=== PATIENT | male | born 1990 | race Caucasian/White ===

== ENCOUNTER 2016-10-21 01:15 | Emergency (ER) | payer SELFPAY ==
[~2016-10-21] VITALS: Ht 172.7 cm; Wt 95.7 kg
[~2016-10-21 01:15] MED LIST: ACYC5CRE2 TP; AMOX500C2 PO; CEPH500C PO; CLOB15OI15 TP; D-ME118S7 PO; DOXY100C42 PO; FLUT9.9S NS; HYDR1TAB PO; METH20TA34 PO
[2016-10-21] MEDS ORDERED: NS IV 1000 ML 1,000 ML IV ONE (01:27)
[2016-10-21 01:46] LABS: BASOPHILS % (AUTO) 1 % (0-10); EOSINOPHILS # (AUTO) 0.3 10^3/uL (0.0-0.3); EOSINOPHILS % (AUTO) 5 % (0-10); LYMPHOCYTES # (AUTO) 3.2 X 10^3 (1.0-4.0); LYMPHOCYTES % (AUTO) 47 % (12-44); MEAN CORPUSCULAR HEMOGLOBIN 33 PG (25-34); MEAN CORPUSCULAR HGB CONC 35 G/DL (32-36); MEAN CORPUSCULAR VOLUME 94 FL (80-99); MEAN PLATELET VOLUME 9.9 FL (7.4-10.4); MONOCYTES # (AUTO) 0.7 X 10^3 (0.0-1.0); MONOCYTES % (AUTO) 10 % (0-12); NEUTROPHILS # (AUTO) 2.6 X 10^3 (1.8-7.8); NEUTROPHILS % (AUTO) 38 % (42-75); PLATELET COUNT 207 10^3/uL (130-400); RED BLOOD COUNT 5.11 10^6/uL (4.35-5.85); RED CELL DISTRIBUTION WIDTH 13.9 % (10.0-14.5); WHITE BLOOD COUNT 6.9 10^3/uL (4.3-11.0)
--- NOTE | 2016-10-21 01:58 | ED Neurological Problem ---
General Chief Complaint: Neurological Problems Stated Complaint: POSS SEIZURE Nursing Triage Note: Pt reports he had a "seizure" at 1700 yesterday. Pt's reports hearing pt holler out and walked into room to find him with "body tensed up and shaking all over". Pt also reports biting tongue during incident. Pt reports no previous hx of seizures. Pt states that since incident he has been unable to move much and now c/o pain in bilat shoulder blades and pressure to chest causing him to be unable to take a deep breath. Nursing Sepsis Screen: No Definite Risk Source: patient Exam Limitations: no limitations History of Present Illness Time seen by provider: 01:45 Initial Comments Here with report of seizure that occurred 2 days ago not yesterday. States that it lasted for a couple minutes and he was postictal for about 30 minutes per the . He apparently bit his tongue and was bleeding. She describes that he had all over body tensing and shaking with foaming at the mouth and bleeding in the mouth. He did not seek treatment at the time due to other life stressors. He was concerned about cost. Presents now because he has residual and persistent pain to both shoulders and shoulder blade areas and along the back. States he felt his shoulder feel like it popped back in sometime after the seizure 2 days ago. Denies fever or chills. States after the seizure area and right facial weakness and numbness that lasted about 2 hours. Timing/Duration: other (seizure lasted a few minutes and occurred 2 days ago postictal state for 30 minutes and residual pain to back and shoulders for 2 days.) Severity: moderate Associated Symptoms: No fever/chills, No nausea/vomiting, seizures Allergies and Home Medications Allergies Coded Allergies: No Known Drug Allergies (Unverified , 10/21/16) Home Medications Methylphenidate HCl 20 Mg Tablet 20 MG PO BID (Reported) Constitutional: see HPINo chills, No fever Eyes: No Symptoms Reported Ears, Nose, Mouth, Throat: see HPI mouth pain (lateral edge of the tongue sore on both sides where he bit his tongue 2 days ago.)denies mouth swelling Respiratory: no symptoms reported Cardiovascular: no symptoms reported Gastrointestinal: no symptoms reportedNo nausea, No vomiting Genitourinary: no symptoms reported Musculoskeletal: see HPI joint pain muscle pain Skin: no symptoms reported Psychiatric/Neurological: See HPIDenies Headache, Tonic Clonic Seizures All Other Systems Reviewed Negative Unless Noted: Yes Past Odrhsjy-Tkipvy-Fqzjyt Hx Patient Social History Alcohol Use: Occasionally Uses Recreational Drug Use: No Smoking Status: Current Everyday Smoker Type Used: Cigarettes Recent Foreign Travel: No Contact w/Someone Who Travel: No Recent Infectious Disease Expo: No Recent Hopitalizations: No Seasonal Allergies Seasonal Allergies: No Surgeries HX Surgeries: No Respiratory Hx Respiratory Disorders: No Cardiovascular Hx Cardiac Disorders: No Neurological Hx Neurological Disorders: No Reproductive System Hx Reproductive Disorders: No Genitourinary Hx Genitourinary Disorders: No Gastrointestinal Hx Gastrointestinal Disorders: No Musculoskeletal Hx Musculoskeletal Disorders: No Endocrine Hx Endocrine Disorders: No HEENT HX ENT Disorders: No Cancer Hx Cancer: No Psychosocial Hx Psychiatric Problems: Yes Behavioral Health Disorders: ADD/ADHD Reviewed Nursing Assessment Reviewed/Agree w Nursing PMH: Yes Family Medical History Significant Family History: No Pertinent Family Hx Physical Exam Vital Signs Vital Sign - Last 12Hours 10/21/16 01:26 Temp 99.3 Pulse 141 Resp 20 B/P 140/94 Pulse Ox 92 O2 Delivery Room Air Capillary Refill : Less Than 3 Seconds General Appearance: WD/WN no apparent distress Respiratory: lungs clear normal breath sounds Cardiovascular: no murmur tachycardia Peripheral Pulses: 2+ Dorsalis Pedis (R), 2+ Left Dors-Pedis (L), 2+ Radial Pulses (R), 2+ Radial Pulses (L) Gastrointestinal: non tender soft Extremities: non-tender normal inspection Neurologic/Psychiatric: alert oriented x 3 Crainal Nerves: normal hearing normal speech PERRL Coordination/Gait: normal gait Motor/Sensory: no motor deficit no sensory deficit no pronator drift Skin: normal color warm/dry Progress/Results/Core Measures Results/Orders Lab Results Laboratory Tests Test 10/21/16 01:41 10/21/16 03:02 Range/Units Acetaminophen Level < 10 L 10-30 UG/ML Alanine Aminotransferase (ALT/SGPT) 326 H 0-55 U/L Albumin 4.4 3.2-4.5 G/DL Alkaline Phosphatase 50 40-136 U/L Anion Gap 16 H 5-14 MMOL/L Aspartate Amino Transf (AST/SGOT) 268 H 5-34 U/L BUN/Creatinine Ratio 7 Basophils # (Auto) 0.0 0.0-0.1 10^3/uL Basophils (%) (Auto) 1 0-10 % Blood Urea Nitrogen 6 L 7-18 MG/DL Calcium Level 9.1 8.5-10.1 MG/DL Carbon Dioxide Level 19 L 21-32 MMOL/L Chloride Level 107 98-107 MMOL/L Creatinine 0.85 0.60-1.30 MG/DL Eosinophils # (Auto) 0.3 0.0-0.3 10^3/uL Eosinophils (%) (Auto) 5 0-10 % Estimat Glomerular Filtration Rate > 60 Glucose Level 131 H 70-105 MG/DL Hematocrit 48 40-54 % Hemoglobin 16.7 13.3-17.7 G/DL Lymphocytes # (Auto) 3.2 1.0-4.0 X 10^3 Lymphocytes (%) (Auto) 47 H 12-44 % Magnesium Level 2.3 1.8-2.4 MG/DL Mean Corpuscular Hemoglobin 33 25-34 PG Mean Corpuscular Hemoglobin Concent 35 32-36 G/DL Mean Corpuscular Volume 94 80-99 FL Mean Platelet Volume 9.9 7.4-10.4 FL Monocytes # (Auto) 0.7 0.0-1.0 X 10^3 Monocytes (%) (Auto) 10 0-12 % Neutrophils # (Auto) 2.6 1.8-7.8 X 10^3 Neutrophils (%) (Auto) 38 L 42-75 % Platelet Count 207 130-400 10^3/uL Potassium Level 3.8 3.6-5.0 MMOL/L Red Blood Count 5.11 4.35-5.85 10^6/uL Red Cell Distribution Width 13.9 10.0-14.5 % Salicylates Level < 5.0 L 5.0-20.0 MG/DL Serum Alcohol 204 H <10 MG/DL Sodium Level 142 135-145 MMOL/L Thyroid Stimulating Hormone (TSH) 2.59 0.35-4.94 UIU/ML Total Bilirubin 0.7 0.1-1.0 MG/DL Total Protein 7.6 6.4-8.2 G/DL White Blood Count 6.9 4.3-11.0 10^3/uL Ur Tricyclic Antidepressants Screen NEGATIVE NEGATIVE Urine Amphetamines Screen NEGATIVE NEGATIVE Urine Bacteria NEGATIVE /HPF Urine Barbiturates Screen NEGATIVE NEGATIVE Urine Benzodiazepines Screen NEGATIVE NEGATIVE Urine Bilirubin NEGATIVE NEGATIVE Urine Cannabinoids Screen NEGATIVE NEGATIVE Urine Casts PRESENT /LPF Urine Clarity CLEAR Urine Cocaine Screen NEGATIVE NEGATIVE Urine Color YELLOW Urine Crystals NONE /LPF Urine Culture Indicated NO Urine Glucose (UA) NEGATIVE NEGATIVE Urine Hyaline Casts RARE /LPF Urine Ketones 1+ H NEGATIVE Urine Leukocyte Esterase NEGATIVE NEGATIVE Urine Methadone Screen NEGATIVE NEGATIVE Urine Methamphetamines Screen NEGATIVE NEGATIVE Urine Mucus NEGATIVE /LPF Urine Nitrite NEGATIVE NEGATIVE Urine Opiates Screen NEGATIVE NEGATIVE Urine Oxycodone Screen NEGATIVE NEGATIVE Urine Phencyclidine Screen NEGATIVE NEGATIVE Urine Propoxyphene Screen NEGATIVE NEGATIVE Urine Protein NEGATIVE NEGATIVE Urine RBC NONE /HPF Urine RBC (Auto) NEGATIVE NEGATIVE Urine Specific [place] 1.020 1.016-1.022 Urine Squamous Epithelial Cells RARE /HPF Urine Urobilinogen NORMAL NORMAL MG/DL Urine WBC NONE /HPF Urine pH 5 5-9 My Orders Orders-MATT BROWN MD Cbc With Automated Diff (10/21/16 01:27) Comprehensive Metabolic Panel (10/21/16 01:27) Drug Screen Stat (Urine) (10/21/16 01:27) Magnesium (10/21/16 01:27) Thyroid Stimulating Hormone (10/21/16 01:27) Ua Culture If Indicated (10/21/16 01:27) Saline Lock/Iv-Start (10/21/16 01:27) Ns Iv 1000 Ml (Sodium Chloride 0.9%) (10/21/16 01:27) Ct Head Wo (10/21/16 01:57) Chest Pa/Lat (2 View) (10/21/16 01:59) Acetaminophen (10/21/16 02:37) Alcohol (10/21/16 02:37) Salicylate (10/21/16 02:37) Medications Given in ED Current Medications Medications Dose Ordered Sig/Alejandra Route Start Time Stop Time Status Last Admin Dose Admin Sodium Chloride 1,000 ml @ 0 mls/hr Q0M ONCE IV 10/21/16 01:27 10/21/16 01:30 DC 10/21/16 01:41 999 MLS/HR Vital Signs/I&O Vital Sign - Last 12Hours 10/21/16 01:26 Temp 99.3 Pulse 141 Resp 20 B/P 140/94 Pulse Ox 92 O2 Delivery Room Air Blood Pressure Mean: 109 Progress Note : Progress Note Seen and evaluated. IV, labs, chest x-ray and CT head ordered. Normal saline 1 L bolus. Monitor patient. 0325: Heart rate of [address] and chest x-ray findings. Patient likely did have seizure. He was given seizure precautions and do not drive instructions. He will follow-up with his doctor this week. Patient also counseled to stop drinking alcohol as he has elevated liver enzymes. Discharged home with return precautions. Patient verbalize understanding instructions and agreement with plan. Diagnostic Imaging Diagonstic Imaging: CT Plain Films/CT/US/NM/MRI: head Comments No acute intracranial abnormality. per statrad read. Reviewed: Reviewed Night [facility] Study Diagonstic Imaging: Xray Plain Films/CT/US/NM/MRI: chest Comments No acute abnormality. Departure Impression Impression: Primary Impression: Seizure Additional Impression: Elevated liver enzymes Disposition: HOME, SELF-CARE Condition: Improved Departure-Patient Inst. Decision time for Depature: 03:40 Referrals: [facility] (PCP/Family) Primary Care Physician Patient Instructions: Seizures, Adult (DC) Add. Discharge Instructions: All discharge instructions reviewed with patient and/or family. Voiced understanding. Your liver enzymes are elevated. You should stop drinking alcohol. Drink plenty of fluids. Follow-up with your Dr. in 2-3 days for recheck and further evaluation. Do not drive or operate heavy machinery or put herself in positions that would cause harm to self or others if you were to have a seizure. You may not drive until cleared by her doctor. You may take ibuprofen 800 mg every 8 hours as needed for pain. Return for worse pain, fever , vomiting, weakness, breathing problems, seizures or other concerns as needed. Copy Copies To 1: ANETA COX MD, TIMOTHY D MD Oct 21, 2016 01:58
[2016-10-21 02:05] LABS: ALANINE AMINOTRANSFERASE 326 U/L (0-55); ALBUMIN 4.4 G/DL (3.2-4.5); ANION GAP 16 MMOL/L (5-14); ASPARTATE AMINO TRANSFERASE 268 U/L (5-34); BILIRUBIN,TOTAL 0.7 MG/DL (0.1-1.0); BLOOD UREA NITROGEN 6 MG/DL (7-18); BUN/CREATININE RATIO 7; CALCIUM 9.1 MG/DL (8.5-10.1); CARBON DIOXIDE 19 MMOL/L (21-32); CHLORIDE 107 MMOL/L (98-107); CREATININE SERUM 0.85 MG/DL (0.60-1.30); GFR ESTIMATED > 60; GLUCOSE 131 MG/DL (70-105); MAGNESIUM 2.3 MG/DL (1.8-2.4); POTASSIUM 3.8 MMOL/L (3.6-5.0); SODIUM 142 MMOL/L (135-145); TOTAL PROTEIN 7.6 G/DL (6.4-8.2)
[2016-10-21 02:25] LABS: THYROID STIMULATING HORMONE 2.59 UIU/ML (0.35-4.94)
[2016-10-21 03:05] LABS: ALCOHOL 204 MG/DL (<10); SALICYLATE < 5.0 MG/DL (5.0-20.0)
[2016-10-21 03:06] LABS: ACETAMINOPHEN < 10 UG/ML (10-30)
[2016-10-21 03:09] LABS: BILIRUBIN,URINE NEGATIVE (NEGATIVE); KETONES,URINE 1+ (NEGATIVE); LEUKOCYTE ESTERASE ,URINE NEGATIVE (NEGATIVE); NITRITE,URINE NEGATIVE (NEGATIVE); PH,URINE 5 (5-9); PROTEIN,URINE NEGATIVE (NEGATIVE); UROBILINOGEN,URINE NORMAL (NORMAL)
[2016-10-21 03:17] LABS: HYALINE CASTS, URINE RARE /LPF; SQUAMOUS EPITHELIAL CELL,UR RARE /HPF
[2016-10-21 03:48] VITALS: BP 132/94
--- NOTE | 2016-10-21 06:50 | Diagnostic Imaging Report ---
PROCEDURE: CT head without contrast. TECHNIQUE: Multiple contiguous axial images were obtained through the brain without the use of intravenous contrast. INDICATION: Seizure. Study compared 03/28/2009. There is no hemorrhage, hydrocephalus, edema, mass, mass effect or interval change. Orbits, sinuses and calvarium are within normal limits. IMPRESSION: Stable normal CT head. Dictated by: Dictated on workstation # [id number]
--- NOTE | 2016-10-21 08:03 | Diagnostic Imaging Report ---
INDICATION: Respiratory distress. FINDINGS: The lungs are clear. Heart and vessels normal. There is no effusion or pneumothorax. IMPRESSION: No acute-appearing abnormality. Dictated by: Dictated on workstation # [id number]
== END 2016-10-21 03:48 | disposition home or self-care (01) ==
LOC: EDUNIT# 01:15 → ER 01:19
DX: R56.9 Unspecified convulsions (principal); F10.10 Alcohol abuse, uncomplicated; Y90.7 Blood alcohol level of 200-239 mg/100 ml; R74.8 Abnormal levels of other serum enzymes
CPT/HCPCS: 36415; 70450; 71020; 80053; 80306; 80320; 80329; 81000; 83735; 84443; 85025; 96360

== ENCOUNTER 2020-02-16 12:01 | Emergency (ER) | payer SELFPAY ==
[~2020-02-16 12:01] MED LIST changes: -D-ME118S7 PO; +PROM118S5 PO
--- NOTE | 2020-02-16 12:32 | ED GI ---
General Chief Complaint: Rect Problems Stated Complaint: RECTAL BLEEDING Source of Information: Patient History of Present Illness Date Seen by Provider: Feb 16, 2020 Time Seen by Provider: 12:32 Initial Comments 29-year-old male presents with rectal bleeding. Reports he's had rectal bleeding for at least 2 weeks with some diffuse abdominal pain. Patient reports she's had on and off in the past. That he was seen about 6 months ago and they gave him some "antibiotics" patient denies any fevers or chills. He does have some nausea. No cough shortness of breath. Allergies and Home Medications Allergies Coded Allergies: No Known Drug Allergies (Unverified , 10/21/16) Home Medications Methylphenidate HCl 20 Mg Tablet, 20 MG PO BID, (Reported) Patient Home Medication List Home Medication List Reviewed: Yes Review of Systems Review of Systems Constitutional: No chills, No fever, No malaise Respiratory: Denies Cough, Denies Shortness of Air Cardiovascular: Denies Chest Pain Gastrointestinal: Abdominal Pain, Nausea, Rectal Bleeding Genitourinary: No Symptoms Reported Musculoskeletal: no symptoms reported Skin: no symptoms reported Psychiatric/Neurological: No Symptoms Reported Past Bhwvvqr-Gybdet-Mixkik Hx Past Med/Social Hx: Reviewed Nursing Past Med/Soc Hx Patient Social History Type Used: Cigarettes Recent Foreign Travel: No Contact w/Someone Who Travel: No Recent Hopitalizations: No Seasonal Allergies Seasonal Allergies: No Past Medical History Reproductive Disorders: No ADD/ADHD Family Medical History No Pertinent Family Hx Physical Exam Vital Signs Vital Signs - First Documented 02/16/20 02/16/20 12:19 12:59 Temp 37.2 Pulse 109 Resp 18 B/P (MAP) 144/89 (107) Pulse Ox 95 O2 Delivery Room Air Capillary Refill : Height/Weight/BMI Height: 5'8" Weight: 211lbs. oz. 95.856451ih; BMI Method:Stated General Appearance: no apparent distress Respiratory: lungs clear, normal breath sounds Cardiovascular: normal peripheral pulses, regular rate, rhythm Gastrointestinal: soft, tenderness (diffuse) Rectal: heme positive stool; No hemorrhoids Extremities: normal range of motion, non-tender Back: normal inspection Neurologic/Psychiatric: alert, normal mood/affect, oriented x 3 Skin: normal color, warm/dry Focused Exam Lactate Level 02/16/20 12:50: Lactic Acid Level 1.48 Lactic Acid Level Laboratory Tests Test 02/16/20 12:50 Lactic Acid Level 1.48 MMOL/L (0.50-2.00) Progress/Results/Core Measures Results/Orders Lab Results Laboratory Tests Test 02/16/20 12:50 02/16/20 13:03 Range/Units White Blood Count 5.6 4.3-11.0 10^3/uL Red Blood Count 4.16 L 4.35-5.85 10^6/uL Hemoglobin 13.3 13.3-17.7 G/DL Hematocrit 39 L 40-54 % Mean Corpuscular Volume 93 80-99 FL Mean Corpuscular Hemoglobin 32 25-34 PG Mean Corpuscular Hemoglobin Concent 35 32-36 G/DL Red Cell Distribution Width 14.2 10.0-14.5 % Platelet Count 173 130-400 10^3/uL Mean Platelet Volume 9.4 7.4-10.4 FL Neutrophils (%) (Auto) 35 L 42-75 % Lymphocytes (%) (Auto) 51 H 12-44 % Monocytes (%) (Auto) 9 0-12 % Eosinophils (%) (Auto) 5 0-10 % Basophils (%) (Auto) 1 0-10 % Neutrophils # (Auto) 2.0 1.8-7.8 X 10^3 Lymphocytes # (Auto) 2.8 1.0-4.0 X 10^3 Monocytes # (Auto) 0.5 0.0-1.0 X 10^3 Eosinophils # (Auto) 0.3 0.0-0.3 10^3/uL Basophils # (Auto) 0.0 0.0-0.1 10^3/uL Erythrocyte Sedimentation Rate 10 0-15 MM/HR Prothrombin Time 14.3 12.2-14.7 SEC INR Comment 1.1 0.8-1.4 Activated Partial Thromboplast Time 33 24-35 SEC Sodium Level 138 135-145 MMOL/L Potassium Level 3.7 3.6-5.0 MMOL/L Chloride Level 106 98-107 MMOL/L Carbon Dioxide Level 22 21-32 MMOL/L Anion Gap 10 5-14 MMOL/L Blood Urea Nitrogen 8 7-18 MG/DL Creatinine 0.75 0.60-1.30 MG/DL Estimat Glomerular Filtration Rate > 60 BUN/Creatinine Ratio 11 Glucose Level 102 70-105 MG/DL Lactic Acid Level 1.48 0.50-2.00 MMOL/L Calcium Level 8.1 L 8.5-10.1 MG/DL Corrected Calcium 7.9 L 8.5-10.1 MG/DL Total Bilirubin 0.4 0.1-1.0 MG/DL Aspartate Amino Transf (AST/SGOT) 128 H 5-34 U/L Alanine Aminotransferase (ALT/SGPT) 129 H 0-55 U/L Alkaline Phosphatase 38 L 40-136 U/L C-Reactive Protein High Sensitivity 0.51 H 0.00-0.50 MG/DL Total Protein 7.8 6.4-8.2 GM/DL Albumin 4.3 3.2-4.5 GM/DL Urine Color YELLOW Urine Clarity CLEAR Urine pH 6.5 5-9 Urine Specific [place] 1.015 L 1.016-1.022 Urine Protein NEGATIVE NEGATIVE Urine Glucose (UA) NEGATIVE NEGATIVE Urine Ketones NEGATIVE NEGATIVE Urine Nitrite NEGATIVE NEGATIVE Urine Bilirubin NEGATIVE NEGATIVE Urine Urobilinogen 0.2 < = 1.0 MG/DL Urine Leukocyte Esterase NEGATIVE NEGATIVE Urine RBC (Auto) NEGATIVE NEGATIVE Urine RBC RARE /HPF Urine WBC NONE /HPF Urine Squamous Epithelial Cells RARE /HPF Urine Crystals NONE /LPF Urine Bacteria NEGATIVE /HPF Urine Casts NONE /LPF Urine Mucus NEGATIVE /LPF Urine Culture Indicated NO My Orders Orders - CARMEN MANRIQUE DO Acute Abd Series (02/16/20 12:37) Ed Iv/Invasive Line Start (02/16/20 12:37) Pantoprazole Injection (Protonix Injecti (02/16/20 12:45) Cbc With Automated Diff (02/16/20 12:37) Comprehensive Metabolic Panel (02/16/20 12:37) Hs C Reactive Protein (02/16/20 12:37) Erythrocyte Sedimentation Rate (02/16/20 12:37) Lactic Acid Analyzer (02/16/20 12:37) Protime With Inr (02/16/20 12:37) Partial Thromboplastin Time (02/16/20 12:37) Ua Culture If Indicated (02/16/20 12:37) Ct Abdomen/Pelvis W (02/16/20 13:41) Iohexol Injection (Omnipaque 350 Mg/Ml 1 (02/16/20 14:00) Received Contrast (Hold Metformin- Contr (02/16/20 14:00) Sodium Chloride Flush (Catheter Flush Sy (02/16/20 14:00) Ns (Ivpb) (Sodium Chloride 0.9% Ivpb Bag (02/16/20 14:00) Medications Given in ED Current Medications Medications Dose Ordered Sig/Alejandra Route Start Time Stop Time Status Last Admin Dose Admin Iohexol 100 ml ONCE ONCE IV 02/16/20 14:00 02/16/20 14:01 DC 02/16/20 14:33 100 ML Pantoprazole 40 mg ONCE ONCE IV 02/16/20 12:45 02/16/20 12:46 DC 02/16/20 12:55 40 MG Sodium Chloride 10 ml NEEDED PRN IV 02/16/20 14:00 02/16/20 15:09 DC 02/16/20 14:33 10 ML Sodium Chloride 100 ml ONCE ONCE IV 02/16/20 14:00 02/16/20 14:01 DC 02/16/20 14:33 80 ML Vital Signs/I&O 02/16/20 02/16/20 02/16/20 12:19 12:59 15:13 Temp 37.2 Pulse 109 95 80 Resp 18 18 18 B/P (MAP) 144/89 (107) 132/83 (99) 146/87 Pulse Ox 95 96 O2 Delivery Room Air Room Air Room Air Progress Progress Note : Progress Note Patient with stable hemoglobin, negative CT of his abdomen. Discussed the patient need to set up an outpatient colonoscopy. I did offer to set up a Gen. surgery consult for the patient. Patient initially agreed then quickly changed his mind and asked just be discharged. I once again stressed and the need for colonoscopy since he states that this is been going on for 2 weeks. He voices understanding and is discharged home without a follow-up appointment as requested. Diagnostic Imaging Diagonstic Imaging: Xray Plain Films/CT/US/NM/MRI: abdomen Comments [facility] [place], [place] NAME: FREDERIC MORENO Micaela [facility] REC#: [id number] PT STATUS: REG ER : 1990 PHYSICIAN: CARMEN MANRIQUE DO ADMIT DATE: 02/16/20/ER Draft Date of Exam:02/16/20 ACUTE ABD SERIES INDICATION: Rectal bleeding. FINDINGS: The lungs are clear. No failure, effusion, or pneumothorax. The bowel gas pattern is normal. No abnormal fecal loading. No pneumatosis. No free air, no abnormal dilatation. No air-fluid levels. IMPRESSION: Normal acute abdominal series. Departure Impression Primary Impression: Rectal bleeding Disposition: 01 HOME, SELF-CARE Condition: Stable Departure-Patient Inst. Referrals: [facility] [place] Primary Care Physician RYLAND SULTANA DO Patient Instructions: Bloody Stools, Adult (DC) Add. Discharge Instructions: Please call Dr. Sultana's office to arrange for outpatient follow-up and colonoscopy All discharge instructions reviewed with patient and/or family. Voiced understanding. Copy Copies To 1: RYLAND SULTANA DO CARMEN MANRIQUE DO Feb 16, 2020 12:32
[2020-02-16] MEDS ORDERED: PANTOPRAZOLE 40 MG (PROTONIX) VIAL IV ONE (12:45)
[2020-02-16 12:59] VITALS: BP 132/83
[2020-02-16 13:06] LABS: BASOPHILS % (AUTO) 1 % (0-10); EOSINOPHILS # (AUTO) 0.3 10^3/uL (0.0-0.3); EOSINOPHILS % (AUTO) 5 % (0-10); HEMATOCRIT 39 % (40-54); HEMOGLOBIN 13.3 G/DL (13.3-17.7); LYMPHOCYTES # (AUTO) 2.8 X 10^3 (1.0-4.0); LYMPHOCYTES % (AUTO) 51 % (12-44); MEAN CORPUSCULAR HEMOGLOBIN 32 PG (25-34); MEAN CORPUSCULAR HGB CONC 35 G/DL (32-36); MEAN CORPUSCULAR VOLUME 93 FL (80-99); MEAN PLATELET VOLUME 9.4 FL (7.4-10.4); MONOCYTES # (AUTO) 0.5 X 10^3 (0.0-1.0); MONOCYTES % (AUTO) 9 % (0-12); NEUTROPHILS % (AUTO) 35 % (42-75); PLATELET COUNT 173 10^3/uL (130-400); RED CELL DISTRIBUTION WIDTH 14.2 % (10.0-14.5)
[2020-02-16 13:09] LABS: BILIRUBIN,URINE NEGATIVE (NEGATIVE); CLARITY,URINE CLEAR; COLOR,URINE YELLOW; GLUCOSE, URINE (UA) NEGATIVE (NEGATIVE); KETONES,URINE NEGATIVE (NEGATIVE); LEUKOCYTE ESTERASE ,URINE NEGATIVE (NEGATIVE); NITRITE,URINE NEGATIVE (NEGATIVE); PH,URINE 6.5 (5-9); PROTEIN,URINE NEGATIVE (NEGATIVE)
[2020-02-16 13:13] LABS: WHITE BLOOD COUNT 5.6 10^3/uL (4.3-11.0)
[2020-02-16 13:14] LABS: ALBUMIN 4.3 GM/DL (3.2-4.5); CHLORIDE 106 MMOL/L (98-107); POTASSIUM 3.7 MMOL/L (3.6-5.0); SODIUM 138 MMOL/L (135-145)
[2020-02-16 13:15] LABS: CALCIUM 8.1 MG/DL (8.5-10.1)
[2020-02-16 13:17] LABS: GLUCOSE 102 MG/DL (70-105); INR 1.1 (0.8-1.4); PROTHROMBIN TIME PATIENT 14.3 SEC (12.2-14.7); TOTAL PROTEIN 7.8 GM/DL (6.4-8.2)
[2020-02-16 13:18] LABS: BILIRUBIN,TOTAL 0.4 MG/DL (0.1-1.0); CARBON DIOXIDE 22 MMOL/L (21-32)
[2020-02-16 13:20] LABS: ALKALINE PHOSPHATASE 38 U/L (40-136); CREATININE SERUM 0.75 MG/DL (0.60-1.30); GFR ESTIMATED > 60
[2020-02-16 13:21] LABS: BUN/CREATININE RATIO 11
[2020-02-16 13:22] LABS: BACTERIA,URINE NEGATIVE /HPF; RBC,URINE RARE /HPF; SQUAMOUS EPITHELIAL CELL,UR RARE /HPF
[2020-02-16 13:23] LABS: ALANINE AMINOTRANSFERASE 129 U/L (0-55)
--- NOTE | 2020-02-16 13:26 | Diagnostic Imaging Report ---
INDICATION: Rectal bleeding. FINDINGS: The lungs are clear. No failure, effusion, or pneumothorax. The bowel gas pattern is normal. No abnormal fecal loading. No pneumatosis. No free air, no abnormal dilatation. No air-fluid levels. IMPRESSION: Normal acute abdominal series. Dictated by: Dictated on workstation # [id number]
[2020-02-16 13:38] LABS: ERYTHROCYTE SEDIMENTATION RATE 10 MM/HR (0-15)
[2020-02-16] MEDS ORDERED: CATHETER FLUSH 10 ML SYR IV PRN (14:00)
[2020-02-16] MEDS ORDERED: NS 100 ML (IVPB) BAG IV ONE (14:00)
[2020-02-16] MEDS ORDERED: HOLD METFORMIN - RECEIVED CONTRAST 20 ML VIAL IV SCH (14:00)
[2020-02-16] MEDS ORDERED: IOHEXOL 350 MG/ML 100 ML (OMNIPAQUE 350) VIAL IV ONE (14:00)
--- OUTSIDE RECORDS SUMMARY | 2020-02-16 14:09 | XMS REPORT ---
Author Author Andrew Garcia Doctor Organization [facility] Address Unknown Phone Unavailable Care Team Providers Care Rehabilitation Coordinator Name Role Phone Migration, Doctor Unavailable Unavailable PROBLEMS Type Condition ICD9-CM Code [id number] Code Onset Dates Condition S tatus SNOMED Code Problem Attention deficit hyperactivity disorder (ADHD), combi david type F90.2 Active 628456410 Problem Gastroesophageal reflux disease, esophagitis pre sence not specified K21.9 Active 949843683 Problem Gastroesophageal reflux disease, esophagitis pre sence not specified K21.9 Active 804479000 Problem Mood disorder F39 Active 951308 05 Problem Attention deficit hyperactiv ity disorder (ADHD), predominantly inattentive type F90.0 Active 73639968 Problem Adjustment disorder with anxiety F43.22 Active 58107921 Problem Generalized anxiety disorder F41.1 A ctive [id number] ALLERGIES No Information ENCOUNTERS Encounter Location Date Diagnosis [facility] [id number] [place] [phone] Feb, [facility] [address] [id number] [place] [address] Feb, [facility] [id number] [place] [address] December, [facility] [id number] [place] [address] Nov, Muscle cramps R25.2 ; Elevat ed CPK R74.8 ; Elevated LFTs R79.89 ; Elevated blood pressure reading R03.0 and Hyperglycemia R73.9 [facility] [address] [facility] [id number] [address] [place] [address] Nov, [facility] [address] [facility] [id number] [address] [place] [address] Nov, Muscle cramps R25.2 [facility] [address] [facility] [id number] [address] [place] [id number] 09 Nov, 2019 [facility] [address] [facility] [id number] [address] [place] [address] Nov, Fever R50.9 and Viral URI wi th cough J06.9 [address] [facility] [id number] [address] [place] [phone] Nov, [facility] [address] [facility] [id number] [address] [place] [address] Oct, Flu-like symptoms R68.89 [place] [address] [facility] [id number] [address] [place] [address] Oct, Mood disorder F39 [address] [id number] [id number] Oct, [id number] [address] Oct, [facility] [address] [facility] [id number] [address] [place] [address] Sep, Laceration of right index fi nger without foreign body without damage to nail, initial encounter S61.210A [address] [address] [address] [id number] [address] [place] [address] Aug, [address] [address] [facility] [id number] [address] [place] [address] Aug, [facility] [address] [facility] [id number] [address] [place] [address] Jul, Laceration of left index fin guerline without foreign body without damage to nail, initial encounter S61.211A and Encounter for immunization Z23 [place] [address] [facility] [id number] [address] [place] [address] Jul, Abnormal LFTs R94.5 [place] [address] [facility] [id number] [address] [place] [address] Jul, Abnormal LFTs R94.5 [address] [address] [address] Jul, Gastroesophageal reflux dise ase, esophagitis presence not specified K21.9 and Diarrhea, unspecified type R19.7 [address] [address] [address] May, Bronchitis J40 [address] [address] [address] May, Attention deficit hyperactiv ity disorder (ADHD), combined type F90.2 [address] [place] [address] Apr, Adjustment disorder with anx iety F43.22 [address] [address] [address] Apr, Generalized anxiety disorder F41.1 and Attention deficit hyperactivity disorder (ADHD), combined type F90.2 [address] [address] [address] Mar, Generalized anxiety disorder F41.1 and Attention deficit hyperactivity disorder (ADHD), combined type F90.2 [address] [address] [address] Feb, Attention deficit hyperactiv ity disorder (ADHD), combined type F90.2 and Generalized anxiety disorder F41.1 [address] [place] [address] [address] Feb, Adjustment disorder with anx iety F43.22 [address] [address] [address] Jan, Adjustment disorder with anx iety F43.22 [address] [id number] [place] [address] Aug, Blood in stool K92.1 and His tory of hemorrhoids Z87.19 [address] [address] Jul, Attention deficit hyperactiv ity disorder (ADHD), combined type F90.2 [facility] [address] [id number] [address] [place] [address] Jul, Attention deficit hyperactiv ity disorder (ADHD), combined type F90.2 and Adjustment disorder with anxiety F43.22 [facility] [id number] [place] [address] 26 Jun, 2018 Bloody stools K92.1 and Acut e bilateral low back pain without sciatica M54.5 [facility] [id number] [place] [address] 08 Jun, 2018 Attention deficit hyperactiv ity disorder (ADHD), combined type F90.2 [facility] [address] [id number] [address] [place] [address] 15 May, 2018 Attention deficit hyperactiv ity disorder (ADHD), combined type F90.2 [facility] [address] [id number] [address] [place] [address] 10 Apr, 2018 Attention deficit hyperactiv ity disorder (ADHD), combined type F90.2 [facility] [id number] [place] [address] Mar, Attention deficit hyperactiv ity disorder (ADHD), combined type F90.2 [facility] [address] [id number] [address] [place] [address] Mar, Attention deficit hyperactiv ity disorder (ADHD), combined type F90.2 [facility] [address] [id number] [address] [place] [address] Mar, Attention deficit hyperactiv ity disorder (ADHD), combined type F90.2 and High risk medication use Z79.899 [facility] [address] [id number] [address] [place] [address] 14 Mar, 2018 Gastroenteritis K52.9 [facility] [address] [id number] [address] [place] [address] Feb, Attention deficit hyperactiv ity disorder (ADHD), combined type F90.2 [facility] [address] [facility] [id number] [address] [place] [address] Jan, Attention deficit hyperactiv ity disorder (ADHD), combined type F90.2 and High risk medication use Z79.8[address] [place], [place] [id number] 57 13 Sep, 2017 Acute cystitis without hematuria N30.00 and Acute suppurative otitis media of left ear with spontaneous rupture of tympanic membrane, recurrence not specified H66.[address] [id number] Jul, Seborrheic keratoses L82.1 and Mood disorder F39 [address] [id number] Jul, Attention deficit hyperactivity disorder (ADHD), predominantly inattentive type F90.[address] [id number] Jul, Mood disorder F39 [facility] [address] [facility] [id number] [address] [place] [address] Sep, [facility] [address] [facility] [id number] [address] [place] [address] Aug, [facility] [address] [facility] [id number] [address] [place] [address] Jul, [facility] [address] [facility] [id number] [address] [place] [address] Jul, [facility] [address] [facility] [id number] [address] [place] [address] Jun, Attention deficit hyperactiv ity disorder (ADHD), combined type F90.2 [facility] [address] [facility] [id number] [address] [place] [address] May, [facility] [address] [facility] [id number] [address] [place] [address] Apr, Attention deficit hyperactiv ity disorder (ADHD), combined type F90.2 [facility] [address] [id number] [address] [place] [address] Mar, Acute non-recurrent maxillar y sinusitis J01.00 [facility] [address] [id number] [address] [place] [address] Mar, Acute non-recurrent maxillar y sinusitis J01.00 [facility] [address] [id number] [address] [place] [address] 11 Mar, 2016 [facility] [address] [id number] [address] [place] [address] Feb, Gastroenteritis K52.9 [facility] [address] [id number] [address] [place] [address] Feb, [facility] [address] [id number] [address] [place] [address] Jan, [facility] [address] [id number] [address] [place] [address] December, [facility] [address] [id number] [address] [place] [address] December, Rash R21 [facility] [address] [id number] [address] [place] [address] Nov, [facility] [address] [id number] [address] [place] [address] Nov, [facility] [address] [id number] [address] [place] [address] Oct, [facility] [address] [id number] [address] [place] [address] Oct, Attention deficit hyperactiv ity disorder (ADHD), combined type F90.2 [facility] [address] [id number] [address] [place] [address] Sep, [facility] [address] [id number] [address] [place] [address] Sep, Viral syndrome B34.9 and HSV (herpes simplex virus) infection B00.9 [facility] [address] [id number] [address] [place] [address] Aug, [facility] [address] [id number] [address] [place] [phone] Aug, [facility] [id number] [place] [phone] Jul, [facility] [id number] [place] [address] Jun, Gastroenteritis K52.9 [facility] [id number] [place] [address] Jun, [facility] [address] [address] Jun, Attention deficit hyperactiv ity disorder (ADHD), combined type F90.2 [facility] [id number] [place] [address] Jun, [facility] [address] [id number] [place] [address] May, 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 [facility] [address] [id number] [address] [place] [address] May, [facility] [address] [id number] [address] [place] [address] Apr, [facility] [address] [id number] [address] [place] [address] Mar, [facility] [id number] [place] [address] Feb, [facility] [address] [id number] [address] [place] [address] Jan, Poison janneth 692.6 [facility] [address] [id number] [address] [place] [id number] 17 Jan, 2015 Attention deficit disorder ( ADD) 314.00 [facility] [address] [id number] [address] [place] [address] 15 Jan, 2015 [facility] [address] [id number] [address] [place] [address] 02 Jan, 2015 Anni valdovinos 692.6 [facility] [address] [id number] [address] [place] [address] December, [facility] [address] [id number] [address] [place] [address] 14 Nov, 2014 [facility] [address] [id number] [address] [place] [id number] Nov, [facility] [address] [id number] [address] [place] [address] Oct, [facility] [address] [id number] [address] [place] [phone] Oct, [facility] [address] [id number] [address] [place] [address] Oct, [facility] [address] [id number] [address] [place] [address] Oct, [facility] [address] [id number] [address] [place] [address] Oct, [facility] [address] [id number] [address] [place] [phone] 05 Oct, 2014 [facility] [address] [id number] [address] [place] [phone] Oct, [facility] [address] [id number] [address] [place] [phone] Oct, [facility] [address] [id number] [address] [place] [address] 2014 [facility] [address] [id number] [address] [place] [address] [place] [address] Sep, [facility] [address] [id number] [address] [place] [address], [place] [address] Aug, [facility] [address] [id number] [address] [place] [address], [place] [address] Aug, [facility] [address] [id number] [address] [place] [address], [place] [address] Aug, [facility] [address] [id number] [address] [place] [address], [place] [address] Aug, [facility] [address] [id number] [address] [place] [address], [place] [address] Aug, [facility] [address] [id number] [address] [place] [address], [place] [address] Aug, [facility] [address] [id number] [address] [place] [address], [place] [address] Jul, [facility] [address] [id number] [address] [place] [address], [place] [address] Jul, [facility] [address] [id number] [address] [place] [address], [place] [address] Jun, [facility] [address] [id number] [address] [place] [address], [place] [address] Jun, [facility] [address] [id number] [address] [place] [address], [place] [address] Jun, [facility] [address] [id number] [address] [place] [address], [place] [address] Jun, [facility] [address] [id number] [address] [place] [address], [place] [address] May, [facility] [address] [id number] [address] [place] [address], [place] [address] May, [facility] [address] [id number] [address] [place] [address], [place] [address] Apr, [facility] [address] [id number] [address] [place] [address], [place] [address] Apr, [facility] [address] [id number] [address] [place] [address], [place] [address] Mar, [facility] [address] [id number] [address] [place] [address], [place] [address] Mar, [facility] [address] [id number] [address] [place] [address], [place] [address] Feb, [facility] [address] [id number] [address] [place] [address], [place] [address] Feb, [facility] [address] [id number] [address] [place] [address], [place] [address] Feb, [facility] [address] [id number] [address] [place] [address], [place] [address] Feb, [facility] [address] [id number] [address] [place] [address], [place] [address] Jan, [facility] [address] [id number] [address] [place] [address], [place] [address] Jan, [facility] [address] [id number] [address] [place] [address], [place] [address] Jan, [facility] [address] [id number] [address] [place] [address], [place] [address] Jan, [facility] [address] [id number] [address] [place] [address], [place] [address] December, [facility] [address] [id number] [address] [place] [address], [place] [address] December, [facility] [place] [facility] [address] [id number] [address] [place] [address], [place] [address] December, [facility] [address] [id number] [address] [place] [address], [place] [address] December, [facility] [address] [id number] [address] [place] [address], [place] [address] Nov, [facility] [address] [id number] [address] [place] [address], [place] [address] Nov, [facility] [address] [id number] [address] [place] [address], [place] [address] Oct, [facility] [address] [id number] [address] [place] [address], [place] [address] Oct, [facility] [address] [id number] [address] [place] [address], [place] [address] Sep, [facility] [address] [id number] [address] [place] [address], [place] [address] Sep, [facility] [address] [id number] [address] [place] [address], [place] [address] Aug, [facility] [address] [id number] [address] [place] [address], [place] [address] Aug, [facility] [address] [id number] [address] [place] [address], [place] [address] Jul, [facility] [address] [id number] [address] [place] [address], [place] [address] Jul, [facility] [address] [id number] [address] [place] [address], [place] [address] Jun, [facility] [address] [id number] [address] [place] [address], [place] [address] Jun, [facility] [place] [facility] [address] [id number] [address] [place] [address], [place] [address] Jun, [facility] [address] [id number] [address] [place] [address], [place] [address] Jun, [facility] [place] [facility] [address] [id number] [address] [place] [address], [place] [address] May, [facility] [place] [facility] [address] [id number] [address] [place] [address], [place] [address] May, [facility] [address] [id number] [address] [place] [address], [place] [address] May, [facility] [address] [id number] [address] [place] [address], [place] [address] Apr, [facility] [address] [id number] [address] [place] [address], [place] [address] Mar, [facility] [address] [id number] [address] [place] [address], [place] [address] Mar, [facility] [address] [id number] [address] [place] [address], [place] [address] Mar, [facility] [address] [id number] [address] [place] [address], [place] [address] Mar, [facility] [address] [id number] [address] [place] [address], [place] [address] Feb, [facility] [address] [id number] [address] [place] [address], [place] [address] Feb, [facility] [address] [id number] [address] [place] [address], [place] [address] Feb, [facility] [address] [id number] [address] [place] [address], [place] [address] Jan, [facility] [address] [id number] [address] [place] [address], [place] [address] Jan, [facility] [address] [id number] [address] [place] [address], [place] [address] December, [facility] [address] [id number] [address] [place] [address], [place] [address] Nov, [facility] [address] [id number] [address] [place] [address], [place] [address] Nov, [facility] [address] [id number] [address] [place] [address], [place] [address] Oct, [facility] [address] [id number] [address] [place] [address], [place] [address] Oct, [facility] [address] [id number] [address] [place] [address], [place] [address] Oct, [facility] [address] [id number] [address] [place] [address], [place] [address] Sep, [facility] [address] [id number] [address] [place] [address], [place] [address] Sep, [facility] [address] [id number] [address] [place] [address], [place] [address] Aug, [facility] [address] [id number] [address] [place] [address], [place] [address] Jun, [facility] [address] [id number] [address] [place] [address], [place] [address] Jun, [facility] [address] [id number] [address] [place] [address], [place] [address] Jun, [facility] [address] [id number] [address] [place] [address], [place] [address] Jun, [facility] [address] [id number] [address] [place] [address], [place] [address] Jun, [facility] [address] [id number] [address] [place] [address], [place] [address] Jun, [facility] [address] [id number] [address] [place] [address], [place] [address] Jun, [facility] [address] [id number] [address] [place] [id number] Jun, [facility] [address] [id number] [address] [place] [address], [place] [address] May, [facility] [address] [id number] [address] [place] [address], [place] [address] May, [facility] [address] [id number] [address] [place] [address], [place] [address] May, [facility] [address] [id number] [address] [place] [address], [place] [address] 18 May, 2012 [facility] [address] [id number] [address] [place] [address], [place] [address] 04 May, 2012 [facility] [address] [id number] [address] [place] [address], [place] [address] May, [facility] [address] [id number] [address] [place] [address], [place] [id number] 08 Apr, 2012 [facility] [address] [id number] [address] [place] [address], [place] [id number] 06 Apr, 2012 [facility] [address] [id number] [address] [place] [address], [place] [id number] Mar, [facility] [address] [id number] [address] [place] [address], [place] [id number] Feb, [facility] [address] [id number] [address] [place] [address], [place] [address] Jan, [facility] [address] [id number] [address] [place] [address], [place] [address] December, [facility] [address] [id number] [address] [place] [address], [place] [address] Nov, [facility] [address] [id number] [address] [place] [address], [place] [id number] 24 Oct, 2011 [facility] [address] [id number] [address] [place] [address], [place] [id number] 15 Oct, 2011 [facility] [address] [id number] [address] [place] [address], [place] [address] Aug, [facility] [address] [id number] [address] [place] [address], [place] [id number] Jul, [facility] [address] [id number] [address] [place] [address], [place] [address] 15 Jun, 2011 [facility] [address] [id number] [address] [place] [address], [place] [id number] 14 Jun, 2011 [facility] [address] [id number] [address] [place] [id number] May, [facility] [address] [id number] [address] [place] [phone] May, [facility] [address] [id number] [address] [place] [id number] Aug, [facility] [address] [id number] [address] [place] [id number] Jul, [facility] [address] [id number] [address] [place] [phone] Jul, [facility] [address] [id number] [address] [place] [phone] Jun, [facility] [address] [id number] [address] [place] [id number] Jun, [facility] [address] [id number] [address] [place] [phone] Jun, [facility] [address] [id number] [address] [place] [id number] Jun, [facility] [address] [id number] [address] [place] [phone] Jun, [facility] [address] [id number] [address] [place] [phone] May, [facility] [address] [id number] [address] [place] [id number] May, [facility] [address] [id number] [address] [place] [id number] May, IMMUNIZATIONS No Known Immunizations SOCIAL HISTORY Never Assessed REASON FOR VISIT PLAN OF CARE VITAL SIGNS MEDICATIONS Unknown Medications RESULTS No Results PROCEDURES No Known procedures INSTRUCTIONS MEDICATIONS ADMINISTERED No Known Medications MEDICAL (GENERAL) HISTORY Type Description Date Medical History attention deficit hyperactivity disorder Medical History Mood disorder Surgical History No Surgical history information Hospitalization History [facility] P[facility] 04/2016
--- OUTSIDE RECORDS SUMMARY | 2020-02-16 14:09 | XMS REPORT ---
Author Author [facility] VDI Laboratory [facility] Department [facility] Address [address] [address] Care Team Providers Care Wildlife Technician Name Role Phone FORD HAYES Unavailable Unavailable JAVIER NAJERA Unavailable Unavailable LONG SCHILLING Unavailable Unavailable FORD DEVI Unavailable Unavailable [facility] Unavailable FORD HAYES Unavailable ANETA COX Unavailable Unavailable FORD HAYES Unavailable FORD Machuca Unavailable GREER REHMAN Unavailable GREER REHMAN Unavailable GREER REHMAN Unavailable GREER REHMAN Unavailable GLORIA, LENY Unavailable GLORIA, LENY Unavailable FREDERIC CLEMONS Unavailable GLORIA, LENY Unavailable FERNANDATON, LENY Unavailable NEELIMA FLYNN Unavailable GLORIA, LENY Unavailable FREDERIC CLEMONS Unavailable Migration, Doctor Unavailable Unavailable Migration, Doctor Unavailable Unavailable Migration, Doctor Unavailable Unavailable Migration, Doctor Unavailable Unavailable Migration, Doctor Unavailable Unavailable KEVIN LIU, MATT Lau Unavailable Unavailable MICHEAL PALACIOS DO Unavailable Unavailable ANETA COX Unavailable MADL, FAVIAN Unavailable MADL, FAVIAN Unavailable Migration, Doctor Unavailable Unavailable ANETA COX Unavailable ANETA COX Unavailable PCP, NONE Unavailable Unavailable ANETA COX Unavailable Migration, Doctor Unavailable Unavailable Migration, Doctor Unavailable Unavailable MADL, FAVIAN Unavailable MADL, FAVIAN Unavailable JENNIFER ROBERTO Unavailable Migration, Doctor Unavailable Unavailable Migration, Doctor Unavailable Unavailable Unavailable Unavailable Migration, Doctor Unavailable Unavailable Migration, Doctor Unavailable Unavailable Migration, Doctor Unavailable Unavailable Migration, Doctor Unavailable Unavailable Migration, Doctor Unavailable Unavailable Migration, Doctor Unavailable Unavailable Migration, Doctor Unavailable Unavailable DenisDEBSALO Tavarez Unavailable MADL, FAVIAN Unavailable MADL, FAVIAN Unavailable MADL, FAVIAN Unavailable Migration, Doctor Unavailable Unavailable GREER REHMAN Unavailable Migration, Doctor Unavailable Unavailable Migration, Doctor Unavailable Unavailable Unavailable Unavailable Unavailable Unavailable Unavailable Unavailable Allergies Normalized Allergy Reported Date of Reaction(s) Care Provider Facility Allergy Type classification allergen Allergy Onset no information Unclassified NKDA 03-28-2009 - no informatio n MICHEAL PALACIOS , DO Not Available (2 sources.) (34759) DA (1 source.) Unclassified No Known Drug 10-21-2016 - no inform namrata GUTIERREZ Not Available Allergies MD KEVIN ([id number]) Medications Medication Ingredient Drug Dose Dates Status Sig Sig Care Class(es) (Normalized) (Original) Provid er azithromyci Azithromyci Macrolide 500 mg 04-15-20 Active take 2 Azithromycin no n 250 mg n Antimicrobi 13 tablets by 250 mg 2 nam e oral tablet Translation al mouth once Tablet by (1 source.) s: [ daily, then Oral route Azithromyci take 1 on day 1 n 250 mg] tablet by then take 1 mouth, then daily for 8 take 1 days Mar, tablet by 2012 Active mouth once daily no cetirizine Histamine-1 Active no ZyrTEC no information Receptor information Active name (4 Antagonist sources.) ciprofloxac ciprofloxac Quinolone 500 mg 03-31-20 Active no Ciprofloxaci no in 500 mg in Antimicrobi 18 - information n HCl 500 m g name oral tablet Translation al 08-17-20 Orally every (1 source.) s: [ 18 12 hrs 1 Ciprofloxac tablet 12h in HCl 500 14 Mar, 2018 mg] Mar, 03 days Active hydrocortis Hydrocortis Corticoster 07-13-20 Active no [place] cortiso no one acetate one / oid 18 information ne nam e 10 mg/ml / pramoxine Anuj-Pramoxin pramoxine Translation e 1-1 % hydrochlori s: [ Rectal Three de 10 mg/ml Hydrocortis times a day rectal one 1 cream (1 Anuj-Pramoxi application source.) ne 1-1 %] to affected area as needed 8h Jun, 14 days Active naproxen Naproxen Nonsteroida 500 mg 10-29-19 Active take 1 Napr osyn 500 no 500 mg oral Translation l 15 tablet by mg 1 tablet name tablet (1 s: [ Anti-inflam mouth twice by Oral source.) Naprosyn matory Drug daily after route 2 500 mg] mealtime times per day pc 13 Oct, 2014 Active Problems Active Problems Problem Normalized Date Last Normalized Normalized Provider Fa cility Classification Problem(s) Recorded Problem Problem Sta tus Duration Alcohol-relate Alcohol abuse, Chronic Active MATT No t Available d disorders (1 uncomplicated MD KEVIN (80417) source.) Substance-rela Nicotine Chronic Active MICHEAL SUZANNE , DO Not Available erma disorders dependence, (85250) (1 source.) cigarettes, uncomplicated Past or Other Problems Problem Normalized Date Last Normalized Normalized Provider Fa cility Classification Problem(s) Recorded Problem Problem Sta tus Duration External cause Blood alcohol no information no information CHUCHO THY Not Available codes: level of MD KEVIN (20753) Unspecified (1 200-239 mg/100 source.) ml Other lower Cough Episodic Completed MICHEAL SUZANNE , DO Not Av ailable respiratory (77513) disease (1 source.) Procedures Procedure Normalized Procedure Procedure Result Performer Facility Date 03-31-2018 EKG, TRACING no information no name [facility] ([id number]) 04-13-2018 Psychiatric diagnostic no information no name [facility] evaluation [facility] ([id number]) 07-13-2018 Radiologic exam no information no name [facility] abdomen 1 view [facility] ([id number]) 07-13-2018 Urnls dip stick/tablet no information no name [facility] rgnt auto w/o [facility] ([id number]) Immunizations Normalized Immunization Date Notes Care Provider Facili Immunization tetanus toxoid, 08-14-2019 no information no name [facility] reduced diphtheria [facility] toxoid, and - [facility] acellular pertussis (14757) vaccine, adsorbed Results Test Name Value Interpretation Reference Range Date Time Fa cility (Normalized) (Normalized) (Medline Reference) xray : kub (in house) on null NEGATED: no information (no code) [facility] Highlighted row Center of Laboratory [facility] studies (set) (67234) ua long dip (in house) on null Glucose Test Negative (no code) [facility] strip mass conc Center (U) [facility] (48391) Protein mass trace (no code) [facility] conc (U) [facility] (32579) UA LONG DIP (IN (no code) [facility]) [facility] (40946) UA LONG DIP (IN slight/cloudy (no code) [facility] Heal th HOUSE) [facility] (82670) UA LONG DIP (IN orange (no code) [facility] HOUSE) [facility] (07027) UA LONG DIP (IN yes (no code) [facility] (41560) UA LONG DIP (IN Negative (no code) [facility] (44061) UA LONG DIP (IN 1.025 (no code) [facility] HOUSE) [facility] (53735) UA LONG DIP (IN [id number] (no code) [facility] HOUSE) [facility] (60957) UA LONG DIP (IN 7.0 (no code) [facility] HOUSE) [facility] (85320) UA LONG DIP (IN trace (no code) [facility] (92919) UA LONG DIP (IN 0.2 (no code) [facility] (50438) not yet categorized on 2019-12-16 Exp date 08/07 (no code) [facility] (05892) [id number] (no code) [facility] (34594) laboratory on 2019-12-16 CK [Catalytic 254 U/L (H) [facility] h activity/Vol] [facility] () CK.BB Elph NONE DETECTED (no code) [facility] [Catalytic [facility] fraction] [facility] () CK.MB Elph 0 (no code) [facility] [Catalytic [facility] fraction] [facility] () CK.MM Elph 100 (no code) [facility] [Catalytic [facility] fraction] [facility] (49990) HAV IgM IA Ql NON-REACTIVE (N) [facility] () HbA1c (Bld) 5.2 % (no code) 0 - 5.7 % [facility] [Mass fraction] [facility] () HBV core IgM IA NON-REACTIVE (N) [facility] (03108) HBV surface Ag NON-REACTIVE (N) [facility] IA Ql [facility] (17327) HCV Ab IA Ql NON-REACTIVE (N) [facility] (05685) HCV Ab 0.04 {ratio} (N) 0 - 3 {ratio} [facility] Signal/Cutoff IA [facility] [Rel units/Vol] [facility] () Magnesium 2.0 mg/dL (N) 1.7 - 2.2 mg/dL [facility] [Mass/Vol] [facility] () laboratory on 2019-12-15 Albumin 4.6 g/dL (N) 3.4 - 5.4 g/dL [facility] [Mass/Vol] [facility] () Albumin/Globulin 1.5 {ratio} (N) 1 - 2.5 {ratio} Comm [facility] [Mass ratio] [facility] () ALP [Catalytic 56 U/L (N) 44 - 147 U/L [facility] Health activity/Vol] [facility] () ALT [Catalytic 155 U/L (H) 4 - 40 U/L Community ealth activity/Vol] [facility] (38989) AST [Catalytic 166 U/L (H) 10 - 34 U/L [facility] Health activity/Vol] [facility] (37790) Basophils (Bld) 0.042 10*3/uL (N) 0 - 0.3 10*3/uL [facility] [#/Vol] [facility] (54023) Basophils/100 0.8 % (N) 0.5 - 1 % Community [facility] alth WBC (Bld) [facility] (16618) Bilirubin 0.6 mg/dL (N) 0.1 - 1.2 mg/dL [facility] [Mass/Vol] [facility] (90090) Calcium 9.6 mg/dL (N) 8.5 - 10.2 mg/dL [facility] [Mass/Vol] [facility] (29677) Chloride 103 mmol/L (N) 95 - 106 mmol/L [facility] [Moles/Vol] [facility] (02356) CK [Catalytic 345 U/L (H) [facility] Healt h activity/Vol] [facility] (07188) CO2 [Moles/Vol] 23 mmol/L (N) 23 - 29 mmol/L [facility] (58113) Creatinine 0.87 mg/dL (N) [facility] [Mass/Vol] [facility] (01412) Eosinophils 0.239 10*3/uL (N) 0.05 - 0.5 Community He alth (Bld) [#/Vol] 10*3/uL [facility] (37668) Eosinophils/100 4.5 % (N) 1 - 4 % [facility] Health WBC (Bld) [facility] (78352) Erythrocyte 13.1 % (N) 11.6 - 14.6 % Community H ealth distribution [facility] (RBC) [facility] [Ratio] (41021) GFR/1.73 sq M 136 (N) 90 - 120 Community He alth predicted among mL/min/{1.73_m2} mL/min/{1.73_m2} [facility] [place] MDRD [facility] (S/P/Bld) [Vol (34882) rate/Area] GFR/1.73 sq 117 (N) 90 - 120 Community Heal th M.predicted MDRD mL/min/{1.73_m2} mL/min/{1.73_m2} [facility] (S/P/Bld) [Vol [facility] rate/Area] (99364) Globulin (S) 3.0 g/dL (N) 2 - 3.5 g/dL [facility] [Mass/Vol] [facility] (66603) Glucose 159 mg/dL (H) 60 - 125 mg/dL [facility] [Mass/Vol] [facility] (93333) Hematocrit (Bld) 42.1 % (N) 36.1 - 50.3 % [facility] [Volume [facility] (09207) Hemoglobin (Bld) 14.4 g/dL (N) 12.1 - 17.2 g/dL [facility] [Mass/Vol] [facility] (20451) Lymphocytes 2.051 10*3/uL (N) 0.9 - 2.9 [facility] He alth (Bld) [#/Vol] 10*3/uL [facility] (78074) Lymphocytes/100 38.7 % (N) 20 - 40 % [facility] WBC (Bld) [facility] (51863) MCH (RBC) 32.0 pg (N) 27 - 31 pg [facility] [Entitic mass] [facility] (76250) MCHC (RBC) 34.2 g/dL (N) 32 - 36 g/dL [facility] [Mass/Vol] [facility] (22786) MCV (RBC) 93.6 fL (N) 80 - 100 fL [facility] Hea lth [Entitic vol] [facility] (28931) Monocytes (Bld) 0.567 10*3/uL (N) 0.3 - 0.9 [facility] Health [#/Vol] 10*3/uL [facility] (08117) Monocytes/100 10.7 % (N) 2 - 8 % [facility] He alth WBC (Bld) [facility] (37749) Neutrophils 2.401 10*3/uL (N) 1.7 - 7 10*3/uL [facility] (Bld) [#/Vol] [facility] (73776) Neutrophils/100 45.3 % (N) 40 - 60 % [facility] Health WBC (Bld) [facility] (27500) Platelet mean 10.3 fL (N) 7.2 - 11.7 fL [facility] Health volume (Bld) [facility] [Entitic vol] [facility] (46780) Platelets (Bld) 206 10*3/uL (N) 150 - 450 [facility] [#/Vol] 10*3/uL [facility] (61358) Potassium 4.1 mmol/L (N) 3.7 - 5.2 mmol/L [facility] [Moles/Vol] [facility] (62296) Protein 7.6 g/dL (N) 6.4 - 8.3 g/dL [facility] [Mass/Vol] [facility] (80671) RBC (Bld) 4.50 10*6/uL (N) 4.2 - 6.1 [facility] [#/Vol] 10*6/uL [facility] (43829) Sodium 137 mmol/L (N) 135 - 145 mmol/L [facility] [Moles/Vol] [facility] (02519) Urea nitrogen 14 mg/dL (N) 7 - 20 mg/dL [facility] [Mass/Vol] [facility] (77945) Urea NOT APPLICABLE (no code) [facility] nitrogen/Creatin [facility] [Mass ratio] [facility] (84064) WBC (Bld) 5.3 10*3/uL (N) 3.5 - 10.5 [facility] [#/Vol] 10*3/uL [facility] (76884) not yet categorized on 2019-11-25 OVERALL RESULT: NOT DETECTED (N) [facility] (19304) Control neg~neg~+ (no code) [facility] (65411) Exp date neg~+~419j11~03/ (no code) Counts include 234 beds at the [facility] 2020 [facility] (51649) Exp date 06/2022 (no code) [facility] (07459) Lot # [id number] (no code) [facility] (65486) SARS-CoV-2 RNA: Negative (N) [facility] (00557) Symptom NOT GIVEN (no code) [facility] (80690) laboratory on 2019-11-25 SARS coronavirus Negative (N) Counts include 234 beds at the [facility] RNA HECTOR+probe [facility] (Unsp spec) [facility] (81718) Specimen source NOT GIVEN (no code) [facility] (Unsp spec) [facility] (00629) not yet categorized on 2019-11-12 Control Negative (no code) [facility] (10262) Exp date 07/07/2022 (no code) [facility] (80461) Lot # [id number] (no code) [facility] (40082) laboratory on 2019-07-26 HAV IgM IA Ql NON-REACTIVE (N) [facility] (82637) HBV core IgM IA NON-REACTIVE (N) [facility] (24246) HBV surface Ag NON-REACTIVE (N) [facility] IA Ql [facility] (28650) HCV Ab IA Ql NON-REACTIVE (N) [facility] (25946) HCV Ab 0.03 {ratio} (N) 0 - 3 {ratio} [facility] Signal/Cutoff IA [facility] [Rel units/Vol] [facility] (85695) laboratory on 2019-07-19 Albumin 4.7 g/dL (N) 3.4 - 5.4 g/dL [facility] [Mass/Vol] [facility] (92292) Albumin/Globulin 1.5 {ratio} (N) 1 - 2.5 {ratio} Comm [facility] [Mass ratio] [facility] (21582) ALP [Catalytic 38 U/L (L) 44 - 147 U/L [facility] Health activity/Vol] [facility] () ALT [Catalytic 190 U/L (H) 4 - 40 U/L [facility] H ealth activity/Vol] [facility] () AST [Catalytic 122 U/L (H) 10 - 34 U/L [facility] Health activity/Vol] [facility] () Basophils (Bld) 0.061 10*3/uL (N) 0 - 0.3 10*3/uL [facility] [#/Vol] [facility] (13091) Basophils/100 0.9 % (N) 0.5 - 1 % [facility] WBC (Bld) [facility] () Bilirubin 1.2 mg/dL (N) 0.1 - 1.2 mg/dL [facility] [Mass/Vol] [facility] () Calcium 10.3 mg/dL (N) 8.5 - 10.2 mg/dL [facility] [Mass/Vol] [facility] (40806) Chloride 101 mmol/L (N) 95 - 106 mmol/L [facility] [Moles/Vol] [facility] (16583) CO2 [Moles/Vol] 26 mmol/L (N) 23 - 29 mmol/L [facility] (97511) Creatinine 0.81 mg/dL (N) [facility] Healt h [Mass/Vol] [facility] (05526) CRP [Mass/Vol] 3.4 mg/L (N) 0 - 8 mg/L [facility] H ealth [facility] (05936) Eosinophils 0.34 10*3/uL (N) 0.05 - 0.5 [facility] (Bld) [#/Vol] 10*3/uL [facility] (66773) Eosinophils/100 5.0 % (N) 1 - 4 % [facility] Health WBC (Bld) [facility] (62253) Erythrocyte 13.2 % (N) 11.6 - 14.6 % [facility] ealth distribution [facility] width (RBC) [facility] [Ratio] (42429) GFR/1.73 sq M 141 (N) 90 - 120 Community alth predicted among mL/min/{1.73_m2} mL/min/{1.73_m2} [facility] blacks MDRD [facility] (S/P/Bld) [Vol (26539) rate/Area] GFR/1.73 sq 122 (N) 90 - 120 [facility] Heal th M.predicted MDRD mL/min/{1.73_m2} mL/min/{1.73_m2} [facility] (S/P/Bld) [Vol [facility] rate/Area] (09491) Globulin (S) 3.2 g/dL (N) 2 - 3.5 g/dL [facility] ealt [Mass/Vol] [facility] (55904) Glucose 94 mg/dL (N) 60 - 125 mg/dL [facility] [Mass/Vol] [facility] (14417) Hematocrit (Bld) 42.6 % (N) 36.1 - 50.3 % [facility] [Volume [facility]] [facility] (75931) Hemoglobin (Bld) 14.7 g/dL (N) 12.1 - 17.2 g/dL [facility] [Mass/Vol] [facility] (58786) Lymphocytes 2.822 10*3/uL (N) 0.9 - 2.9 [facility] alth (Bld) [#/Vol] 10*3/uL [facility] (14372) Lymphocytes/100 41.5 % (N) 20 - 40 % [facility] WBC (Bld) [facility] (63604) MCH (RBC) 32.1 pg (N) 27 - 31 pg [facility] [Entitic mass] [facility] (76766) MCHC (RBC) 34.5 g/dL (N) 32 - 36 g/dL [facility] [Mass/Vol] [facility] (25851) MCV (RBC) 93.0 fL (N) 80 - 100 fL [facility] Hea lth [Entitic vol] [facility] (34096) Monocytes (Bld) 0.673 10*3/uL (N) 0.3 - 0.9 [facility] [#/Vol] 10*3/uL [facility] (43253) Monocytes/100 9.9 % (N) 2 - 8 % [facility] WBC (Bld) [facility] (84656) Neutrophils 2.904 10*3/uL (N) 1.7 - 7 10*3/uL [facility] (Bld) [#/Vol] [facility] (89836) Neutrophils/100 42.7 % (N) 40 - 60 % [facility] Health WBC (Bld) [facility] (95016) Platelet mean 10.0 fL (N) 7.2 - 11.7 fL [facility] Health volume (Bld) [facility] [Entitic vol] [facility] (91905) Platelets (Bld) 224 10*3/uL (N) 150 - 450 [facility] [#/Vol] 10*3/uL [facility] (34655) Potassium 4.1 mmol/L (N) 3.7 - 5.2 mmol/L [facility] [Moles/Vol] [facility] (92321) Protein 7.9 g/dL (N) 6.4 - 8.3 g/dL [facility] [Mass/Vol] [facility] (13969) RBC (Bld) 4.58 10*6/uL (N) 4.2 - 6.1 [facility] He lth [#/Vol] 10*6/uL [facility] (29514) Sodium 136 mmol/L (N) 135 - 145 mmol/L [facility] [Moles/Vol] [facility] (51266) Urea nitrogen 12 mg/dL (N) 7 - 20 mg/dL [facility] [Mass/Vol] [facility] (90192) Urea NOT APPLICABLE (no code) [facility] Healt h nitrogen/Creatin [facility] [Mass ratio] [facility] (16038) WBC (Bld) 6.8 10*3/uL (N) 3.5 - 10.5 [facility] [#/Vol] 10*3/uL [facility] (81946) not yet categorized on 2019-03-01 COMMENT no information (no code) [facility] (08970) laboratory on 2019-03-01 6-Monoacetylmorp Negative (no code) Counts include 234 beds at the [facility] javier (6-ANTONIO) [facility] (U) [facility] (37092) Amphetamines Ql Negative (no code) [facility] (U) [facility] (95322) Benzodiazepines Negative (no code) [facility] Ql (U) [facility] (53120) Benzoylecgonine Negative (no code) [facility] Ql (U) [facility] (91878) Buprenorphine Ql Negative (no code) Counts include 234 beds at the [facility] (U) [facility] (66462) Creatinine (U) 193.4 mg/dL (no code) [facility] [Mass/Vol] [facility] (15632) Drug screen CONSISTENT (no code) [facility] comment (U) [facility] [Interp] [facility] (51712) Ethanol Ql (U) Negative (no code) [facility] (60859) Ethyl Negative (no code) [facility] glucuronide (U) [facility] [Mass/Vol] [facility] (64679) Ethyl sulfate Negative (no code) [facility] (U) [Mass/Vol] [facility] (67858) Methylenedioxyme Negative (no code) Counts include 234 beds at the [facility] thamphetamine [facility] (U) [facility] (96951) Opiates Ql (U) Negative (no code) [facility] (81714) Oxidants Ql (U) Negative (no code) [facility] (26543) Oxycodone Ql (U) Negative (no code) [facility] (59753) pH (U) 6.93 [pH] (no code) 4.6 - 8 [pH] [facility] (60470) Tetrahydrocannab Negative (no code) Counts include 234 beds at the [facility] inol Ql (U) [facility] (04074) urinalysis on 2018-07-13 Protein (U) trace (no code) [facility] [Mass/Vol] [facility] (02568) other on 2018-07-13 BLO trace (no code) [facility] (82722) KET ~slight/c (no code) [facility] loudy~orange~yes [facility] ~neg~neg~neg [facility] (12938) POPPY neg~trace (no code) [facility] Healt [facility] (64148) Lot # [id number] (no code) [facility] (22600) SG 1.025 (no code) [facility] (41791) URO 0.2 (no code) [facility] (62870) hematology on 2018-07-13 pH (Bld) 7.0 [pH] (no code) 7.38 - 7.42 [pH] Communit y [facility] (54414) Vital Signs Vital Sign Value Interpretation Reference Date Time Care Prov ider Facility (Normalized) (Normalized) Range BMI (Body Mass 31.05 kg/m2 (no code) 15 - 25 kg/m2 07-13-2018 [facility] Index) 14:00-[address] [place] [address] (79694) BMI (Body Mass 32.16 kg/m2 (no code) 15 - 25 kg/m2 03-31-2018 [facility] Index) 15:20-[address] [place] [address] (02752) Body height 175.26 cm (no code) cm 05-24-2013 [facility] 15:02-0400 [facility] (99152) Body 96.9 [degF] (no code) 97.8 - 99.0 07-13-2018 FREDERIC WOODALL [facility] Temperature [degF] 14:00-[address] [place] [address] (11924) Body 98.3 [degF] (no code) 97.8 - 99.0 03-31-2018 [facility] Temperature [degF] 15:200400 [address] [place] [address] (57093) Body 98.6 [degF] (no code) 97.8 - 99.0 01-14-2014 [facility] Temperature [degF] 12:47-[address] [place] [address] (67112) Body 98.8 [degF] (no code) 97.8 - 99.0 05-24-2013 [facility] temperature [degF] 15:0400 [facility] (65916) Body weight 91.67 kg (no code) kg 01-14-2014 [facility] 12:47-0400 [address] [place] [address] ([id number]) Body weight 94.8 kg (no code) kg 05-24-2013 [facility] munity 15: [facility] ([id number]) Height 175.26 cm (no code) cm 07-13-2018 [facility] 14:00-[address] [place] [address] ([id number]) Height 175.26 cm (no code) cm 03-31-2018 [facility] [id number] [address] [place] [address] ([id number]) Height 175.26 cm (no code) cm 01-14-2014 [facility] [id number] [address] [place] [address] ([id number]) Weight 95.39 kg (no code) kg 07-13-2018 [facility] 14:00-[address] [place] [address] ([id number]) Weight 98.79 kg (no code) kg 03-31-2018 [facility] 15:20-[address] [place] [address] ([id number]) Interventions No Information Plan of Treatment Normalized Care Care Detail Care Activity Date Care Provider F acility Activity (BH-FU-) [facility] 08-05-[address] [facility] F/u 30 min [place] ([id number]) (PS-20) [facility] 07-22-2018 FREDERIC CLEMONS [id number] [facility] Psych[facility]ry F/U 20 [facility] ([id number]) Goals No Information Social History No Information Functional Status The data below is from unstructured sources Query Response Date Perry rded Patient Orientation Person Place Time Situation October 21, 2016 1:26am Mental Status No Information Encounters Encounter Normalized Encounter Encounter Diagnosis Care Provi jesus Organization Date Type 06-24-2018 () Behavioral no information NEELIMA ANDERSO N (no [facility] Health F/u 30 min phone) (no phone) 05-20-2018 () Behavioral no information NEELIMA ANDERSO N (no [facility] Health F/u 30 min phone) (no phone) 03-31-2018 Patient encounter no information no name no or ganization name 03-03-2018 Patient encounter no information no name no or ganization name 01-20-2018 Patient encounter no information no name no or ganization name 09-30-2017 Patient encounter no information no name no or ganization name 12-16-2019 Patient encounter no information NONE PCP (no phone ) [facility] procedure (no phone) (no phone) [facility] (no phone) (no phone) [place] (no phone) 12-15-2019 Patient encounter no information (no phone) [facility] procedure [facility] (no phone) 11-25-2019 Patient encounter no information NONE PCP (no phone ) [facility] procedure (no phone) (no phone) [facility] (no phone) 11-12-2019 Patient encounter no information (no phone) [facility] procedure [facility] (no phone) 11-04-2019 Patient encounter no information NONE PCP (no phone ) [facility] procedure [facility] (no phone) 10-07-2019 Patient encounter no information (no phone) [facility] procedure [facility] (no phone) 08-14-2019 Patient encounter no information no name no or ganization name procedure 07-26-2019 Patient encounter no information no name no or ganization name procedure 07-19-2019 Patient encounter no information no name no or ganization name procedure 04-26-2019 Patient encounter no information no name no or ganization name procedure 03-29-2019 Patient encounter no information no name no or ganization name procedure 03-01-2019 Patient encounter no information no name no or ganization name procedure 03-01-2019 Patient encounter no information no name no or ganization name procedure 03-01-2019 Patient encounter no information no name no or ganization name procedure 01-18-2019 Patient encounter no information no name no or ganization name procedure 08-19-2018 Patient encounter no information no name no or ganization name procedure 07-13-2018 Patient encounter no information no name no or ganization name procedure 10-21-2016 Patient encounter no information no name no or ganization name procedure Medical Equipment No Information Payers No Information Summary Purpose eClinicalWorks SubmissioneClinicalWorks SubmissioneClinicalWorks SubmissioneClinicalWorks SubmissioneClinicalWorks SubmissioneClinicalWorks SubmissioneClinicalWorks SubmissioneClinicalWorks SubmissioneClinicalWorks SubmissioneClinicalWorks SubmissioneClinicalWorks SubmissioneClinicalWorks SubmissioneClinicalWorks SubmissioneClinicalWorks SubmissioneClinicalWorks Submission Advance Directives Directive Response Recor ded Date/Time Advance Directives No 7:34am Resuscitation Status Full Code 04/20/16 7:34am Directive Response Recor ded Date/Time Advance Directives No 1:26am Resuscitation Status Full Code 10/21/16 1:26am Discharge Instructions No hospital discharge instructions.No hospital discharge instructions. Additional Source Comments This clinical document has been generated using [employer] software that has been certified by the Office of the National Coordinator for Health Information Technology (ONC 15.99.04.3023.Diam.31.00.0.591403) and the National Committee for Index Clerk (NCQA, as an eMeasure certified technology). FOR RECORDS PERTAINING TO PATIENTS WHO ARE OR HAVE BEEN ENROLLED IN A CHEMICAL D EPENDENCY/SUBSTANCE ABUSE PROGRAM, SOME INFORMATION MAY BE OMITTED. This clinica l summary was aggregated from multiple sources. Caution should be exercised in using it in the provision of clinical care. This summary normalizes information from multiple sources, and as a consequence, information in this document may ma terially change the coding, format and clinical context of patient data. In petra tion, data may be omitted in some cases. CLINICAL DECISIONS SHOULD BE BASED ON T HE PRIMARY CLINICAL RECORDS. [employer]. provides no warranty or guara ntee of the accuracy or completeness of information in this document.The followi ng information is based on time limited clinical information UNRECOGNIZED CONTENT PROVIDED BELOW FOR UNRECOGNIZED SECTION MEDICAL (GENERAL) HISTORY Type Description Date Medical History attention deficit hy peractivity disorder Hospitalization History [facility]2016 Type Description Date Medical History attention deficit hy peractivity disorder Surgical History No Surgical history information Hospitalization History [facility] 04/2016 Type Description Date Medical History attention deficit hy peractivity disorder Medical History Mood disorder Surgical History No Surgical history information Hospitalization History [facility] 04/2016 UNRECOGNIZED CONTENT PROVIDED BELOW FOR UNRECOGNIZED SECTION REASON FOR VISIT BH f/uBlood in stool-FLORINDA cristina, stomach cramps, having bowel movement constantl y and its very watery and it hurtsmethylphenidate 03/31/2018[facility] intakemethylphe nidate 04/28/2018Blood in stool - sick severe nerve pain/ severe chills - Polina Jerome, bad kidney pain x 2 1/2 months Polina NEELY, needs work note - from friday to ay Polina NEELY, blurry vision and migraines - constant pain on top of scalp Polina Jerome, genitals are painful and sensative after using restroom / but has loose stool s Polina NEELY, lost weight 225-202 with in 2 weeks Polina NEELYPOVOV-MibFIS-[id number]-MigEMR -MigEMR-Delta
--- OUTSIDE RECORDS SUMMARY | 2020-02-16 14:10 | XMS REPORT ---
Author Author Andrew REHMAN Organization [facility] Address [address] [place] [address] Care Team Providers Care Surgical Corsetier Name Role Phone GREER REHMAN Unavailable PROBLEMS Type Condition ICD9-CM Code [id number] Code Onset Dates Condition S tatus SNOMED Code Problem Attention deficit hyperactivity disorder (ADHD), combi david type F90.2 Active 380285217 Problem Gastroesophageal reflux disease, esophagitis pre sence not specified K21.9 Active 471056977 Problem Gastroesophageal reflux disease, esophagitis pre sence not specified K21.9 Active 569917476 Problem Mood disorder F39 Active 139517 05 Problem Attention deficit hyperactiv ity disorder (ADHD), predominantly inattentive type F90.0 Active 95129200 Problem Adjustment disorder with anxiety F43.22 Active 35444673 Problem Generalized anxiety disorder F41.1 A ctive [id number] ALLERGIES No Information ENCOUNTERS Encounter Location Date Diagnosis [facility] [address] [facility] [id number] [address] [place] [phone] December, [facility] [address] [facility] [id number] [address] [place] [phone] Nov, Muscle cramps R25.2 ; Elevat ed CPK R74.8 ; Elevated LFTs R79.89 ; Elevated blood pressure reading R03.0 and Hyperglycemia R73.9 [facility] [address] [facility] [id number] [address] [place] [phone] Nov, [facility] [address] [facility] [id number] [address] [place] [phone] Nov, Muscle cramps R25.2 [facility] [address] [facility] [id number] [address] [place] [phone] Nov, [facility] [address] [place] [id number] [address] [place] [id number] 09 Nov, 2019 Fever R50.9 and Viral URI wi th cough J06.9 [place] [address] [facility] [id number] [address] [place] [phone] Nov, [facility] [address] [facility] [id number] [address] [place] [phone] Oct, Flu-like symptoms R68.89 [place] [address] [facility] [id number] [address] [place] [phone] Oct, Mood disorder F39 [facility] [id number] [id number] [id number] Oct, [address] [id number] [address] Oct, [facility] [address] [facility] [id number] [address] [place] [phone] Sep, Laceration of right index fi nger without foreign body without damage to nail, initial encounter S61.210A [place] [address] [address] Aug, [place] [address] [place] [id number] [address] [place] [phone] Aug, [facility] [address] [place] [id number] [address] [place] [phone] Jul, Laceration of left index fin guerline without foreign body without damage to nail, initial encounter S61.211A and Encounter for immunization Z23 [place] [address] [facility] [id number] [address] [place] [phone] Jul, Abnormal LFTs R94.5 [place] [id number] [place] [phone] Jul, Abnormal LFTs R94.5 [place] [address] [facility] [id number] [address] [place] [id number] Jul, Gastroesophageal reflux dise ase, esophagitis presence not specified K21.9 and Diarrhea, unspecified type R19.7 [place] [address] [id number] May, Bronchitis J40 [place] [address] [place] [id number] [place] [address] May, Attention deficit hyperactiv ity disorder (ADHD), combined type F90.2 [place] [address] [address] Apr, Adjustment disorder with anx iety F43.22 [place] [address] [address] Apr, Generalized anxiety disorder F41.1 and Attention deficit hyperactivity disorder (ADHD), combined type F90.2 [place] [address] [address] Mar, Generalized anxiety disorder F41.1 and Attention deficit hyperactivity disorder (ADHD), combined type F90.2 [place] [address] [address] Feb, Attention deficit hyperactiv ity disorder (ADHD), combined type F90.2 and Generalized anxiety disorder F41.1 [place] [address] [address] Feb, Adjustment disorder with anx iety F43.22 [place] [address] [address] Jan, Adjustment disorder with anx iety F43.22 [place] [address] [place] [id number] [place] [address] Aug, Blood in stool K92.1 and His tory of hemorrhoids Z87.19 [place] [address] [place] [id number] [address] [place] [phone] Jul, Attention deficit hyperactiv ity disorder (ADHD), combined type F90.2 [place] [address] [place] [id number] [address] [place] [id number] Jul, Attention deficit hyperactiv ity disorder (ADHD), combined type F90.2 and Adjustment disorder with anxiety F43.22 [facility] [address] [facility] [id number] [address] [place] [id number] 26 Jun, 2018 Bloody stools K92.1 and Acut e bilateral low back pain without sciatica M54.5 [facility] [address] [place] [id number] [address] [place] [id number] 08 Jun, 2018 Attention deficit hyperactiv ity disorder (ADHD), combined type F90.2 [facility] [address] [place] [id number] [address] [place] [id number] 15 May, 2018 Attention deficit hyperactiv ity disorder (ADHD), combined type F90.2 [facility] [address] [place] [id number] [address] [place] [phone] Apr, Attention deficit hyperactiv ity disorder (ADHD), combined type F90.2 [facility] [address] [place] [id number] [address] [place] [phone] Mar, Attention deficit hyperactiv ity disorder (ADHD), combined type F90.2 [facility] [address] [place] [id number] [address] [place] [id number] 14 Mar, 2018 Attention deficit hyperactiv ity disorder (ADHD), combined type F90.2 [facility] [address] [place] [id number] [address] [place] [id number] Mar, Attention deficit hyperactiv ity disorder (ADHD), combined type F90.2 and High risk medication use Z79.899 [facility] [address] [place] [id number] [address] [place] [id number] 14 Mar, 2018 Gastroenteritis K52.9 [facility] [address] [place] [id number] [address] [place] [phone] Feb, Attention deficit hyperactiv ity disorder (ADHD), combined type F90.2 [facility] [address] [id number] [address] [place] [id number] Jan, Attention deficit hyperactiv ity disorder (ADHD), combined type F90.2 and High risk medication use Z79.899 [place] [address] [place], [place] [id number] 13 Sep, 2017 Acute cystitis without hematuria N30.00 and Acute suppurative otitis media of left ear with spontaneous rupture of tympanic membrane, recurrence not specified H66.012 [place] [address] [place], [place] [id number] 57 Jul, Seborrheic keratoses L82.1 and Mood disorder F39 [address] [id number] Jul, Attention deficit hyperactivity disorder (ADHD), predominantly inattentive type F90.[address] [id number] Jul, Mood disorder F39 [facility] [address] [facility] [id number] [address] [place] [phone] Sep, [facility] [address] [id number] [address] [place] [phone] Aug, [facility] [address] [id number] [address] [place] [phone] Jul, [facility] [address] [id number] [address] [place] [phone] Jul, [facility] [address] [facility] [id number] [address] [place] [phone] Jun, Attention deficit hyperactiv ity disorder (ADHD), combined type F90.2 [facility] [address] [id number] [address] [place] [phone] May, [facility] [address] [id number] [address] [place] [phone] Apr, Attention deficit hyperactiv ity disorder (ADHD), combined type F90.2 [facility] [address] [id number] [address] [place] [id number] Mar, Acute non-recurrent maxillar y sinusitis J01.00 [facility] [address] [id number] [address] [place] [phone] Mar, Acute non-recurrent maxillar y sinusitis J01.00 [facility] [address] [id number] [address] [place] [phone] Mar, [facility] [address] [id number] [address] [place] [phone] Feb, Gastroenteritis K52.9 [facility] [address] [id number] [address] [place] [id number] Feb, [facility] [address] [id number] [address] [place] [id number] Jan, [facility] [address] [facility] [id number] [address] [place] [phone] December, [facility] [address] [facility] [id number] [address] [place] [phone] December, Rash R21 [facility] [address] [id number] [address] [place] [phone] Nov, [facility] [address] [facility] [id number] [address] [place] [phone] Nov, [facility] [address] [facility] [id number] [address] [place] [phone] Oct, [facility] [address] [facility] [id number] [address] [place] [phone] Oct, Attention deficit hyperactiv ity disorder (ADHD), combined type F90.2 [facility] [address] [facility] [id number] [address] [place] [phone] Sep, [facility] [address] [facility] [id number] [address] [place] [phone] Sep, Viral syndrome B34.9 and HSV (herpes simplex virus) infection B00.9 [facility] [address] [facility] [id number] [address] [place] [phone] Aug, [facility] [address] [facility] [id number] [address] [place] [phone] Aug, [facility] [address] [facility] [id number] [address] [place] [id number] Jul, [facility] [address] [place] [id number] [address] [place] [phone] Jun, Gastroenteritis K52.9 [facility] [address] [facility] [id number] [address] [place] [phone] Jun, [facility] [address] [place] [id number] [place] [phone] Jun, Attention deficit hyperactiv ity disorder (ADHD), combined type F90.2 [facility] [address] [place] [id number] [address] [place] [phone] Jun, [facility] [address] [place] [id number] [address] [place] [id number] May, 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 [facility] [address] [place] [id number] [address] [place] [phone] May, [facility] [address] [place] [id number] [address] [place] [phone] Apr, [facility] [address] [place] [id number] [address] [place] [phone] Mar, [facility] [address] [facility] [id number] [address] [place] [phone] Feb, [facility] [address] [place] [id number] [address] [place] [phone] Jan, Poison janneth 692.6 [facility] [address] [facility] [id number] [address] [place] [id number] Jan, Attention deficit disorder ( ADD) 314.00 [facility] [address] [id number] [address] [place] [address], [place] [id number] 15 Jan, [address] [facility] [address] [id number] [address] [place] [address], [place] [address] Jan, Anni valdovinos 692.6 [facility] [address] [id number] [address] [place] [address], [place] [phone] December, [facility] [address] [id number] [address] [place] [address], [place] [id number] 14 Nov, 2014 [facility] [address] [id number] [address] [place] [address], [place] [phone] Nov, [facility] [address] [id number] [address] [place] [address], [place] [address] Oct, [facility] [address] [id number] [address] [place] [address], [place] [phone] Oct, [facility] [address] [id number] [address] [place] [address], [place] [phone] Oct, [facility] [address] [id number] [address] [place] [address], [place] [phone] Oct, [facility] [address] [id number] [address] [place] [address], [place] [phone] Oct, [facility] [address] [id number] [address] [place] [address], [place] [phone] Oct, [facility] [address] [id number] [address] [place] [address], [place] [phone] Oct, [facility] [address] [id number] [address] [place] [address], [place] [address] Oct, [facility] [address] [id number] [address] [place] [address], [place] [phone] Sep, [facility] [address] [id number] [address] [place] [address], [place] [address] Sep, [facility] [address] [id number] [address] [place] [address], [place] [address] Aug, [facility] [address] [id number] [address] [place] [address], [place] [address] Aug, [facility] [address] [id number] [address] [place] [address], [place] [address] Aug, [facility] [address] [id number] [address] [place] [address], [place] [phone] Aug, [facility] [address] [id number] [address] [place] [address], [place] [address] Aug, [facility] [address] [id number] [address] [place] [address], [place] [address] Aug, [facility] [address] [id number] [address] [place] [address], [place] [address] Jul, [facility] [address] [id number] [address] [place] [address], [place] [address] Jul, [facility] [address] [id number] [address] [place] [address], [place] [address] Jun, [facility] [address] [id number] [address] [place] [address], [place] [address] Jun, [facility] [address] [id number] [address] [place] [address], [place] [address] Jun, [facility] [address] [id number] [address] [place] [address], [place] [address] Jun, [facility] [address] [id number] [address] [place] [address], [place] [address] May, [facility] [address] [id number] [address] [place] [address], [place] [address] May, [facility] [address] [id number] [address] [place] [address], [place] [address] Apr, [facility] [address] [id number] [address] [place] [address], [place] [address] Apr, [facility] [address] [id number] [address] [place] [address], [place] [address] Mar, [facility] [address] [id number] [address] [place] [address], [place] [address] Mar, [facility] [address] [id number] [address] [place] [address], [place] [address] Feb, [facility] [address] [id number] [address] [place] [address], [place] [address] Feb, [facility] [address] [id number] [address] [place] [address], [place] [id number] Feb, [facility] [address] [id number] [address] [place] [address], [place] [address] Feb, [facility] [address] [id number] [address] [place] [address], [place] [address] Jan, [facility] [address] [id number] [address] [place] [address], [place] [address] Jan, [facility] [address] [id number] [address] [place] [address], [place] [address] Jan, [facility] [address] [id number] [address] [place] [address], [place] [address] Jan, [facility] [address] [id number] [address] [place] [address], [place] [address] December, [facility] [address] [id number] [address] [place] [address], [place] [address] December, [facility] [address] [id number] [address] [place] [address], [place] [address] December, [facility] [address] [id number] [address] [place] [address], [place] [address] December, [facility] [address] [id number] [address] [place] [address], [place] [address] Nov, [facility] [address] [id number] [address] [place] [address], [place] [address] Nov, [facility] [address] [id number] [address] [place] [address], [place] [address] Oct, [facility] [address] [id number] [address] [place] [address], [place] [address] Oct, [facility] [address] [id number] [address] [place] [address], [place] [address] Sep, [facility] [address] [id number] [address] [place] [address], [place] [address] Sep, [facility] [address] [id number] [address] [place] [address], [place] [address] Aug, [facility] [address] [id number] [address] [place] [address], [place] [address] Aug, [facility] [address] [id number] [address] [place] [address], [place] [address] Jul, [facility] [address] [id number] [address] [place] [address], [place] [address] Jul, [facility] [address] [id number] [address] [place] [address], [place] [address] Jun, [facility] [address] [id number] [address] [place] [address], [place] [address] Jun, [facility] [address] [id number] [address] [place] [address], [place] [address] Jun, [facility] [address] [id number] [address] [place] [address], [place] [address] Jun, [facility] [address] [id number] [address] [place] [address], [place] [address] May, [facility] [address] [id number] [address] [place] [address], [place] [address] May, [facility] [address] [id number] [address] [place] [address], [place] [address] May, [facility] [address] [id number] [address] [place] [address], [place] [address] Apr, [facility] [address] [id number] [address] [place] [address], [place] [address] Mar, [facility] [address] [id number] [address] [place] [address], [place] [address] Mar, [facility] [address] [id number] [address] [place] [address], [place] [address] Mar, [facility] [address] [id number] [address] [place] [address], [place] [address] Mar, [facility] [address] [id number] [address] [place] [address], [place] [id number] Feb, [facility] [address] [id number] [address] [place] [address], [place] [id number] Feb, [facility] [address] [id number] [address] [place] [address], [place] [id number] Feb, [facility] [address] [id number] [address] [place] [address], [place] [id number] Jan, [facility] [address] [id number] [address] [place] [address], [place] [id number] Jan, [facility] [address] [id number] [address] [place] [address], [place] [id number] December, [facility] [address] [id number] [address] [place] [address], [place] [id number] Nov, [facility] [address] [id number] [address] [place] [address], [place] [id number] Nov, [facility] [address] [id number] [address] [place] [address], [place] [id number] Oct, [facility] [address] [id number] [address] [place] [address], [place] [id number] Oct, [facility] [address] [id number] [address] [place] [address], [place] [id number] Oct, [facility] [address] [id number] [address] [place] [address], [place] [id number] Sep, [facility] [address] [id number] [address] [place] [address], [place] [id number] Sep, [facility] [address] [id number] [address] [place] [address], [place] [id number] Aug, [facility] [address] [id number] [address] [place] [address], [place] [id number] Jun, [facility] [address] [id number] [address] [place] [address], [place] [id number] Jun, [facility] [address] [id number] [address] [place] [address], [place] [id number] Jun, [facility] [address] [id number] [address] [place] [address], [place] [id number] Jun, [facility] [address] [id number] [address] [place] [address], [place] [id number] Jun, [facility] [address] [id number] [address] [place] [address], [place] [id number] Jun, [facility] [address] [id number] [address] [place] [address], [place] [id number] Jun, [facility] [address] [id number] [address] [place] [address], [place] [id number] Jun, [facility] [address] [id number] [address] [place] [address], [place] [address] May, [facility] [address] [id number] [address] [place] [address], [place] [id number] May, [facility] [address] [id number] [address] [place] [address], [place] [id number] May, [facility] [facility] [address] [id number] [address] [place] [address], [place] [id number] May, [facility] [address] [id number] [address] [place], [place] [address] [address] May, [facility] [address] [id number] [address] [place] [address], [place] [id number] May, [facility] [address] [id number] [address] [place] [address], [place] [id number] 08 Apr, 2012 [facility] [address] [id number] [address] [place] [address], [place] [id number] Apr, [facility] [address] [id number] [address] [place] [address], [place] [id number] Mar, [facility] [address] [id number] [address] [place] [address], [place] [id number] Feb, [facility] [address] [id number] [address] [place] [address], [place] [id number] Jan, [facility] [address] [id number] [address] [place] [address], [place] [id number] December, [facility] [address] [id number] [address] [place] [address], [place] [id number] Nov, [facility] [address] [id number] [address] [place] [address], [place] [id number] Oct, [facility] [address] [id number] [address] [place] [address], [place] [id number] Oct, [facility] [address] [id number] [address] [place] [address], [place] [id number] Aug, [facility] [address] [id number] [address] [place] [address], [place] [id number] Jul, [facility] [address] [id number] [address] [place] [address], [place] [id number] 15 Jun, 2011 [facility] [address] [id number] [address] [place] [address], [place] [id number] 14 Jun, 2011 [facility] [address] [id number] [address] [place] [address], [place] [id number] 31 May, 2011 [facility] [address] [id number] [address] [place] [phone] May, [facility] [address] [id number] [address] [place] [id number] Aug, [facility] [address] [id number] [address] [place] [phone] Jul, [facility] [address] [id number] [address] [place] [id number] Jul, [facility] [address] [id number] [address] [place] [phone] Jun, [facility] [address] [id number] [address] [place] [phone] Jun, [facility] [address] [id number] [address] [place] [phone] Jun, [facility] [address] [id number] [address] [place] [phone] Jun, [facility] [address] [id number] [address] [place] [phone] Jun, [facility] [address] [id number] [address] [place] [phone] May, [facility] [address] [id number] [address] [place] [phone] May, [facility] [address] [id number] [address] [place] [phone] May, IMMUNIZATIONS No Known Immunizations SOCIAL HISTORY [...]
--- OUTSIDE RECORDS SUMMARY | 2020-02-16 14:10 | XMS REPORT ---
Author Author Andrew Garcia Doctor Organization [facility] Address Unknown Phone Unavailable Care Team Providers Care Dance Studio Manager Name Role Phone Migration, Doctor Unavailable Unavailable PROBLEMS Type Condition ICD9-CM Code AUW38-OH Code Onset Dates Condition S tatus SNOMED Code Problem Attention deficit hyperactivity disorder (ADHD), combi david type F90.2 Active 803558108 Problem Gastroesophageal reflux disease, esophagitis pre sence not specified K21.9 Active 714710087 Problem Gastroesophageal reflux disease, esophagitis pre sence not specified K21.9 Active 685250658 Problem Mood disorder F39 Active 891464 05 Problem Attention deficit hyperactiv ity disorder (ADHD), predominantly inattentive type F90.0 Active 78329099 Problem Adjustment disorder with anxiety F43.22 Active 41142619 Problem Generalized anxiety disorder F41.1 A ctive [id number] ALLERGIES No Information ENCOUNTERS Encounter Location Date Diagnosis [facility] [address] [id number] [address] [place] [phone] Feb, [facility] [address] [id number] [address] [place] [phone] Feb, [facility] [address] [id number] [address] [place] [address] December, [facility] [address] [id number] [address] [place] [phone] Nov, Muscle cramps R25.2 ; Elevat ed CPK R74.8 ; Elevated LFTs R79.89 ; Elevated blood pressure reading R03.0 and Hyperglycemia R73.9 [facility] [address] [facility] [id number] [address] [place] [id number] Nov, [facility] [address] [facility] [id number] [address] [place] [phone] Nov, Muscle cramps R25.2 [facility] [address] [facility] [id number] [address] [place] [id number] 09 Nov, 2019 [facility] [address] [facility] [id number] [address] [place] [phone] Nov, Fever R50.9 and Viral URI wi th cough J06.9 [address] [facility] [id number] [address] [place] [phone] Nov, [facility] [address] [facility] [id number] [address] [place] [phone] Oct, Flu-like symptoms R68.89 [address] [place] [address] [address] [facility] [id number] [address] [place] [address] Oct, Mood disorder F39 [address] [id number] [id number] Oct, [address] [place] [address] Oct, [facility] [address] [facility] [id number] [address] [place] [address] Sep, Laceration of right index fi nger without foreign body without damage to nail, initial encounter S61.210A [place] [address] [id number] [address] [place] [address] Aug, [place] [address] [facility] [id number] [address] [place] [address] Aug, [facility] [address] [facility] [id number] [address] [place] [phone] Jul, Laceration of left index fin guerline without foreign body without damage to nail, initial encounter S61.211A and Encounter for immunization Z23 [place] [address] [address] [facility] [id number] [address] [place] [address] Jul, Abnormal LFTs R94.5 [place] [address] [facility] [id number] [address] [place] [address] Jul, Abnormal LFTs R94.5 [address] [address] [address] Jul, Gastroesophageal reflux dise ase, esophagitis presence not specified K21.9 and Diarrhea, unspecified type R19.7 [address] [address] [address] May, Bronchitis J40 [address] [address] [address] May, Attention deficit hyperactiv ity disorder (ADHD), combined type F90.2 [address] [address] [place] [address] Apr, Adjustment disorder with anx iety F43.22 [address] [address] Apr, Generalized anxiety disorder F41.1 and Attention deficit hyperactivity disorder (ADHD), combined type F90.2 [address] [place] [address] [address] Mar, Generalized anxiety disorder F41.1 and Attention deficit hyperactivity disorder (ADHD), combined type F90.2 [address] [address] [address] Feb, Attention deficit hyperactiv ity disorder (ADHD), combined type F90.2 and Generalized anxiety disorder F41.1 [address] [address] [address] Feb, Adjustment disorder with anx iety F43.22 [address] [address] [address] Jan, Adjustment disorder with anx iety F43.22 [address] [id number] [place] [address] Aug, Blood in stool K92.1 and His tory of hemorrhoids Z87.19 [address] [address] [address] [place] [address] Jul, Attention deficit hyperactiv ity disorder (ADHD), combined type F90.2 [facility] [address] [id number] [address] [place] [address] Jul, Attention deficit hyperactiv ity disorder (ADHD), combined type F90.2 and Adjustment disorder with anxiety F43.22 [facility] [id number] [place] [id number] 26 Jun, 2018 Bloody stools K92.1 and Acut e bilateral low back pain without sciatica M54.5 [facility] [id number] [place] [id number] 08 Jun, 2018 Attention deficit hyperactiv ity disorder (ADHD), combined type F90.2 [facility] [address] [id number] [address] [place] [id number] 15 May, 2018 Attention deficit hyperactiv ity disorder (ADHD), combined type F90.2 [facility] [address] [id number] [address] [place] [id number] 10 Apr, 2018 Attention deficit hyperactiv ity disorder (ADHD), combined type F90.2 [facility] [id number] [place] [phone] Mar, Attention deficit hyperactiv ity disorder (ADHD), combined type F90.2 [facility] [address] [id number] [address] [place] [address] Mar, Attention deficit hyperactiv ity disorder (ADHD), combined type F90.2 [facility] [address] [id number] [address] [place] [address] Mar, Attention deficit hyperactiv ity disorder (ADHD), combined type F90.2 and High risk medication use Z79.899 [facility] [address] [id number] [address] [place] [id number] 14 Mar, 2018 Gastroenteritis K52.9 [facility] [address] [id number] [address] [place] [address] Feb, Attention deficit hyperactiv ity disorder (ADHD), combined type F90.2 [facility] [address] [facility] [id number] [address] [place] [address] Jan, Attention deficit hyperactiv ity disorder (ADHD), combined type F90.2 and High risk medication use Z79.8[address] [place], [place] [id number] 57 13 Sep, 2017 Acute cystitis without hematuria N30.00 and Acute suppurative otitis media of left ear with spontaneous rupture of tympanic membrane, recurrence not specified H66.[address] [id number] Jul, Seborrheic keratoses L82.1 and Mood disorder F39 [address] [id number] Jul, Attention deficit hyperactivity disorder (ADHD), predominantly inattentive type F90.[address] [id number] Jul, Mood disorder F39 [facility] [address] [facility] [id number] [address] [place] [address] Sep, [facility] [address] [facility] [id number] [address] [place] [address] Aug, [facility] [address] [facility] [id number] [address] [place] [phone] Jul, [facility] [address] [facility] [id number] [address] [place] [address] Jul, [facility] [address] [facility] [id number] [address] [place] [id number] Jun, Attention deficit hyperactiv ity disorder (ADHD), combined type F90.2 [facility] [address] [facility] [id number] [address] [place] [address] May, [facility] [address] [facility] [id number] [address] [place] [address] Apr, Attention deficit hyperactiv ity disorder (ADHD), combined type F90.2 [facility] [address] [id number] [address] [place] [phone] Mar, Acute non-recurrent maxillar y sinusitis J01.00 [facility] [address] [id number] [address] [place] [address] Mar, Acute non-recurrent maxillar y sinusitis J01.00 [facility] [address] [id number] [address] [place] [id number] 11 Mar, 2016 [facility] [address] [id number] [address] [place] [address] Feb, Gastroenteritis K52.9 [facility] [address] [id number] [address] [place] [phone] Feb, [facility] [address] [id number] [address] [place] [phone] Jan, [facility] [address] [id number] [address] [place] [address] December, [facility] [address] [id number] [address] [place] [address] December, Rash R21 [facility] [address] [id number] [address] [place] [address] Nov, [facility] [address] [id number] [address] [place] [phone] Nov, [facility] [address] [id number] [address] [place] [address] Oct, [facility] [address] [id number] [address] [place] [phone] Oct, Attention deficit hyperactiv ity disorder (ADHD), combined type F90.2 [facility] [address] [id number] [address] [place] [address] Sep, [facility] [address] [id number] [address] [place] [address] Sep, Viral syndrome B34.9 and HSV (herpes simplex virus) infection B00.9 [facility] [address] [id number] [address] [place] [phone] Aug, [facility] [address] [id number] [address] [place] [phone] Aug, [facility] [id number] [place] [phone] Jul, [facility] [id number] [place] [address] Jun, Gastroenteritis K52.9 [facility] [id number] [place] [phone] Jun, [facility] [address] [address] Jun, Attention deficit hyperactiv ity disorder (ADHD), combined type F90.2 [facility] [address] [id number] [address] [place] [address] Jun, [facility] [id number] [place] [address] May, 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 [facility] [address] [id number] [address] [place] [address] May, [facility] [address] [id number] [address] [place] [address] Apr, [facility] [address] [id number] [address] [place] [address] Mar, [facility] [id number] [place] [address] Feb, [facility] [address] [id number] [address] [place] [address] Jan, Poison janneth 692.6 [facility] [address] [id number] [address] [place] [id number] 17 Jan, 2015 Attention deficit disorder ( ADD) 314.00 [facility] [address] [id number] [address] [place] [id number] 15 Jan, 2015 [facility] [address] [id number] [address] [place] [id number] 02 Jan, 2015 Anni valdovinos 692.6 [facility] [address] [id number] [address] [place] [phone] December, [facility] [address] [id number] [address] [place] [id number] 14 Nov, 2014 [facility] [address] [id number] [address] [place] [phone] Nov, [facility] [address] [id number] [address] [place] [id number] Oct, [facility] [address] [id number] [address] [place] [phone] Oct, [facility] [address] [id number] [address] [place] [address] Oct, [facility] [address] [id number] [address] [place] [phone] Oct, [facility] [address] [id number] [address] [place] [id number] Oct, [facility] [address] [id number] [address] [place] [id number] 05 Oct, 2014 [facility] [address] [id number] [address] [place] [phone] Oct, [facility] [address] [id number] [address] [place] [id number] Oct, [facility] [address] [id number] [address] [place] [phone] 2014 [facility] [address] [id number] [address] [place] [address] [place] [address] Sep, [facility] [address] [id number] [address] [place] [address], [place] [address] Aug, [facility] [address] [id number] [address] [place] [address], [place] [address] Aug, [facility] [address] [id number] [address] [place] [address], [place] [address] Aug, [facility] [address] [id number] [address] [place] [address], [place] [address] Aug, [facility] [address] [id number] [address] [place] [address], [place] [address] Aug, [facility] [address] [id number] [address] [place] [address], [place] [address] Aug, [facility] [address] [id number] [address] [place] [address], [place] [address] Jul, [facility] [address] [id number] [address] [place] [address], [place] [address] Jul, [facility] [address] [id number] [address] [place] [address], [place] [address] Jun, [facility] [address] [id number] [address] [place] [address], [place] [address] Jun, [facility] [address] [id number] [address] [place] [address], [place] [address] Jun, [facility] [address] [id number] [address] [place] [address], [place] [address] Jun, [facility] [address] [id number] [address] [place] [address], [place] [address] May, [facility] [address] [id number] [address] [place] [address], [place] [address] May, [facility] [address] [id number] [address] [place] [address], [place] [address] Apr, [facility] [address] [id number] [address] [place] [address], [place] [address] Apr, [facility] [address] [id number] [address] [place] [address], [place] [address] Mar, [facility] [address] [id number] [address] [place] [address], [place] [address] Mar, [facility] [address] [id number] [address] [place] [address], [place] [address] Feb, [facility] [address] [id number] [address] [place] [address], [place] [address] Feb, [facility] [address] [id number] [address] [place] [address], [place] [address] Feb, [facility] [address] [id number] [address] [place] [address], [place] [address] Feb, [facility] [address] [id number] [address] [place] [address], [place] [address] Jan, [facility] [address] [id number] [address] [place] [address], [place] [address] Jan, [facility] [address] [id number] [address] [place] [address], [place] [address] Jan, [facility] [address] [id number] [address] [place] [address], [place] [address] Jan, [facility] [address] [id number] [address] [place] [address], [place] [address] December, [facility] [address] [id number] [address] [place] [address], [place] [address] December, [facility] [place] [facility] [address] [id number] [address] [place] [address], [place] [address] December, [facility] [address] [id number] [address] [place] [address], [place] [address] December, [facility] [address] [id number] [address] [place] [address], [place] [address] Nov, [facility] [address] [id number] [address] [place] [address], [place] [address] Nov, [facility] [address] [id number] [address] [place] [address], [place] [address] Oct, [facility] [address] [id number] [address] [place] [address], [place] [address] Oct, [facility] [address] [id number] [address] [place] [address], [place] [address] Sep, [facility] [address] [id number] [address] [place] [address], [place] [address] Sep, [facility] [address] [id number] [address] [place] [address], [place] [address] Aug, [facility] [address] [id number] [address] [place] [address], [place] [address] Aug, [facility] [address] [id number] [address] [place] [address], [place] [address] Jul, [facility] [address] [id number] [address] [place] [address], [place] [address] Jul, [facility] [address] [id number] [address] [place] [address], [place] [address] Jun, [facility] [address] [id number] [address] [place] [address], [place] [address] Jun, [facility] [place] [facility] [address] [id number] [address] [place] [address], [place] [address] Jun, [facility] [address] [id number] [address] [place] [address], [place] [address] Jun, [facility] [place] [facility] [address] [id number] [address] [place] [address], [place] [address] May, [facility] [place] [facility] [address] [id number] [address] [place] [address], [place] [address] May, [facility] [address] [id number] [address] [place] [address], [place] [address] May, [facility] [address] [id number] [address] [place] [address], [place] [address] Apr, [facility] [address] [id number] [address] [place] [address], [place] [address] Mar, [facility] [address] [id number] [address] [place] [address], [place] [address] Mar, [facility] [address] [id number] [address] [place] [address], [place] [address] Mar, [facility] [address] [id number] [address] [place] [address], [place] [address] Mar, [facility] [address] [id number] [address] [place] [address], [place] [address] Feb, [facility] [address] [id number] [address] [place] [address], [place] [address] Feb, [facility] [address] [id number] [address] [place] [address], [place] [address] Feb, [facility] [address] [id number] [address] [place] [address], [place] [address] Jan, [facility] [address] [id number] [address] [place] [address], [place] [address] Jan, [facility] [address] [id number] [address] [place] [address], [place] [address] December, [facility] [address] [id number] [address] [place] [address], [place] [address] Nov, [facility] [address] [id number] [address] [place] [address], [place] [address] Nov, [facility] [address] [id number] [address] [place] [address], [place] [address] Oct, [facility] [address] [id number] [address] [place] [address], [place] [address] Oct, [facility] [address] [id number] [address] [place] [address], [place] [address] Oct, [facility] [address] [id number] [address] [place] [address], [place] [address] Sep, [facility] [address] [id number] [address] [place] [address], [place] [address] Sep, [facility] [address] [id number] [address] [place] [address], [place] [address] Aug, [facility] [address] [id number] [address] [place] [address], [place] [address] Jun, [facility] [address] [id number] [address] [place] [address], [place] [address] Jun, [facility] [address] [id number] [address] [place] [address], [place] [address] Jun, [facility] [address] [id number] [address] [place] [address], [place] [address] Jun, [facility] [address] [id number] [address] [place] [address], [place] [address] Jun, [facility] [address] [id number] [address] [place] [address], [place] [address] Jun, [facility] [address] [id number] [address] [place] [address], [place] [address] Jun, [facility] [address] [id number] [address] [place] [id number] Jun, [facility] [address] [id number] [address] [place] [address], [place] [address] May, [facility] [address] [id number] [address] [place] [address], [place] [address] May, [facility] [address] [id number] [address] [place] [address], [place] [address] May, [facility] [address] [id number] [address] [place] [address], [place] [address] 18 May, 2012 [facility] [address] [id number] [address] [place] [address], [place] [id number] 04 May, 2012 [facility] [address] [id number] [address] [place] [address], [place] [phone] May, [facility] [address] [id number] [address] [place] [address], [place] [id number] 08 Apr, 2012 [facility] [address] [id number] [address] [place] [address], [place] [id number] 06 Apr, 2012 [facility] [address] [id number] [address] [place] [address], [place] [id number] Mar, [facility] [address] [id number] [address] [place] [address], [place] [id number] Feb, [facility] [address] [id number] [address] [place] [address], [place] [id number] Jan, [facility] [address] [id number] [address] [place] [address], [place] [id number] December, [facility] [address] [id number] [address] [place] [address], [place] [id number] Nov, [facility] [address] [id number] [address] [place] [address], [place] [id number] 24 Oct, 2011 [facility] [address] [id number] [address] [place] [address], [place] [id number] 15 Oct, 2011 [facility] [address] [id number] [address] [place] [address], [place] [address] Aug, [facility] [address] [id number] [address] [place] [address], [place] [id number] Jul, [facility] [address] [id number] [address] [place] [address], [place] [id number] 15 Jun, 2011 [facility] [address] [id number] [address] [place] [address], [place] [id number] 14 Jun, 2011 [facility] [address] [id number] [address] [place] [id number] May, [facility] [address] [id number] [address] [place] [id number] May, [facility] [address] [id number] [address] [place] [phone] Aug, [facility] [address] [id number] [address] [place] [id number] Jul, [facility] [address] [id number] [address] [place] [id number] Jul, [facility] [address] [id number] [address] [place] [id number] Jun, [facility] [address] [id number] [address] [place] [id number] Jun, [facility] [address] [id number] [address] [place] [id number] Jun, [facility] [address] [id number] [address] [place] [phone] Jun, [facility] [address] [id number] [address] [place] [phone] Jun, [facility] [address] [id number] [address] [place] [phone] May, [facility] [address] [id number] [address] [place] [id number] May, [facility] [address] [id number] [address] [place] [phone] May, IMMUNIZATIONS No Known Immunizations SOCIAL HISTORY [...]
--- OUTSIDE RECORDS SUMMARY | 2020-02-16 14:10 | XMS REPORT ---
Author Author Andrew Garcia Doctor Organization [facility] Address Unknown Phone Unavailable Care Team Providers Care Radiation Control Technician Name Role Phone Migration, Doctor Unavailable Unavailable PROBLEMS Type Condition ICD9-CM Code SNR17-DK Code Onset Dates Condition S tatus SNOMED Code Problem Attention deficit hyperactivity disorder (ADHD), combi david type F90.2 Active 897936823 Problem Gastroesophageal reflux disease, esophagitis pre sence not specified K21.9 Active [id number] Problem Gastroesophageal reflux disease, esophagitis pre sence not specified K21.9 Active 709475101 Problem Mood disorder F39 Active 001835 05 Problem Attention deficit hyperactiv ity disorder (ADHD), predominantly inattentive type F90.0 Active 28765011 Problem Adjustment disorder with anxiety F43.22 Active 05264627 Problem Generalized anxiety disorder F41.1 A ctive [id number] ALLERGIES No Information ENCOUNTERS Encounter Location Date Diagnosis [facility], [place] [address] [address] December, [facility] [place] [address] [address] Nov, Muscle cramps R25.2 ; Elevat ed CPK R74.8 ; Elevated LFTs R79.89 ; Elevated blood pressure reading R03.0 and Hyperglycemia R73.9 [facility], [place] [address] [id number] [address] [place] [phone] Nov, [facility] [address] [id number] [address] [place] [phone] Nov, Muscle cramps R25.2 [facility], [place] [address] [id number] [address] [place] [address] Nov, [facility] [address] [id number] [address] [place] [address] Nov, Fever R50.9 and Viral URI wi th cough J06.9 [facility], [place] [address] [facility] [id number] [address] [place] [id number] 08 Nov, 2019 [facility] [address] [facility] [id number] [address] [place] [address] Oct, Flu-like symptoms R68.89 [place] [address] [facility] [id number] [address] [place] [address] Oct, Mood disorder F39 [facility] [id number] [id number] [id number] Oct, [address] [id number] [address] Oct, [facility] [address] [facility] [id number] [address] [place] [id number] Sep, Laceration of right index fi nger without foreign body without damage to nail, initial encounter S61.210A [facility], [place] [address] [facility] [id number] [address] [place] [address] Aug, [place] [address] [facility] [id number] [address] [place] [address] Aug, [facility] [address] [facility] [id number] [address] [place] [address] Jul, Laceration of left index fin guerline without foreign body without damage to nail, initial encounter S61.211A and Encounter for immunization Z23 [place] [address] [facility] [id number] [address] [place] [address] Jul, Abnormal LFTs R94.5 [place] [address] [facility] [id number] [address] [place] [address] Jul, Abnormal LFTs R94.5 [place] [address] [facility] [id number] [address] [place] [address] Jul, Gastroesophageal reflux dise ase, esophagitis presence not specified K21.9 and Diarrhea, unspecified type R19.7 [place] [address] [address] May, Bronchitis J40 [place] [address] [address] May, Attention deficit hyperactiv ity disorder (ADHD), combined type F90.2 [place] [address] [address] Apr, Adjustment disorder with anx iety F43.22 [place] [address] [address] Apr, Generalized anxiety disorder F41.1 and Attention deficit hyperactivity disorder (ADHD), combined type F90.2 [place] [address] [address] Mar, Generalized anxiety disorder F41.1 and Attention deficit hyperactivity disorder (ADHD), combined type F90.2 [place] [address] [address] Feb, Attention deficit hyperactiv ity disorder (ADHD), combined type F90.2 and Generalized anxiety disorder F41.1 [place] [address] [address] Feb, Adjustment disorder with anx iety F43.22 [place] [address] [address] Jan, Adjustment disorder with anx iety F43.22 [place] [address] [address] Aug, Blood in stool K92.1 and His tory of hemorrhoids Z87.19 [place] [address] [address] Jul, Attention deficit hyperactiv ity disorder (ADHD), combined type F90.2 [place] [address] [address] Jul, Attention deficit hyperactiv ity disorder (ADHD), combined type F90.2 and Adjustment disorder with anxiety F43.22 [facility], [place] [id number] [place] [id number] 26 Jun, 2018 Bloody stools K92.1 and Acut e bilateral low back pain without sciatica M54.5 [facility], [place] [address] [id number] [address] [place] [phone] 08 Jun, 2018 Attention deficit hyperactiv ity disorder (ADHD), combined type F90.2 [facility], [place] [address] [id number] [address] [place] [phone] 15 May, 2018 Attention deficit hyperactiv ity disorder (ADHD), combined type F90.2 [facility], [place] [address] [place] [address] [id number] [place] [phone] 10 Apr, 2018 Attention deficit hyperactiv ity disorder (ADHD), combined type F90.2 [facility], [place] [address] [id number] [address] [place] [id number] Mar, Attention deficit hyperactiv ity disorder (ADHD), combined type F90.2 [facility], [place] [address] [id number] [address] [place] [address] Mar, Attention deficit hyperactiv ity disorder (ADHD), combined type F90.2 [facility], [place] [address] [id number] [address] [place] [address] Mar, Attention deficit hyperactiv ity disorder (ADHD), combined type F90.2 and High risk medication use Z79.899 [facility], [place] [address] [id number] [address] [place] [address] 14 Mar, 2018 Gastroenteritis K52.9 [facility], [place] [address] [id number] [address] [place] [address] Feb, Attention deficit hyperactiv ity disorder (ADHD), combined type F90.2 [facility], [place] [address] [id number] [address] [place] [address] Jan, Attention deficit hyperactiv ity disorder (ADHD), combined type F90.2 and High risk medication use Z79.899 [place] [address] [place] [id number] 13 Sep, 2017 Acute cystitis without hematuria N30.00 and Acute suppurative otitis media of left ear with spontaneous rupture of tympanic membrane, recurrence not specified H66.012 [place] [address] [place], [place] [id number] Jul, Seborrheic keratoses L82.1 and Mood disorder F39 [address] [id number] Jul, Attention deficit hyperactivity disorder (ADHD), predominantly inattentive type F90.[address] [id number] 57 Jul, Mood disorder F39 [facility], [place] [address] [facility] [id number] [address] [place] [address] Sep, [facility], [place] [address] [id number] [address] [place] [address] Aug, [facility], [place] [address] [id number] [address] [place] [address] Jul, [facility], [place] [address] [facility] [id number] [address] [place] [phone] Jul, [facility], [place] [address] [facility] [id number] [address] [place] [address] Jun, Attention deficit hyperactiv ity disorder (ADHD), combined type F90.2 [facility], [place] [address] [id number] [address] [place] [address] May, [facility], [place] [address] [id number] [address] [place] [address] Apr, Attention deficit hyperactiv ity disorder (ADHD), combined type F90.2 [facility], [place] [address] [facility] [id number] [address] [place] [address] Mar, Acute non-recurrent maxillar y sinusitis J01.00 [facility] [address] [id number] [address] [place] [address] Mar, Acute non-recurrent maxillar y sinusitis J01.00 [facility], [place] [address] [facility] [id number] [address] [place] [address] Mar, [facility] [address] [facility] [id number] [address] [place] [address] Feb, Gastroenteritis K52.9 [facility], [place] [address] [facility] [id number] [address] [place] [address] Feb, [facility], [place] [address] [id number] [address] [place] [address] Jan, [facility], [place] [address] [facility] [id number] [address] [place] [address] December, [facility], [place] [address] [facility] [id number] [address] [place] [address] December, Rash R21 [facility], [place] [address] [facility] [id number] [address] [place] [address] Nov, [facility], [place] [address] [facility] [id number] [address] [place] [address] Nov, [facility], [place] [address] [facility] [id number] [address] [place] [address] Oct, [facility], [place] [address] [facility] [id number] [address] [place] [phone] Oct, Attention deficit hyperactiv ity disorder (ADHD), combined type F90.2 [facility], [place] [address] [facility] [id number] [address] [place] [phone] Sep, [facility], [place] [address] [facility] [id number] [address] [place] [phone] Sep, Viral syndrome B34.9 and HSV (herpes simplex virus) infection B00.9 [facility], [place] [address] [facility] [id number] [address] [place] [address] Aug, [facility], [place] [address] [facility] [id number] [address] [place] [address] Aug, [facility], [place] [address] [facility] [id number] [address] [place] [phone] Jul, [facility], [place] [address] [facility] [id number] [address] [place] [address] Jun, Gastroenteritis K52.9 [facility], [place] [address] [facility] [id number] [address] [place] [address] Jun, [facility], [place] [address] [id number] [address] [place] [address] Jun, Attention deficit hyperactiv ity disorder (ADHD), combined type F90.2 [facility], [place] [address] [facility] [id number] [address] [place] [address] Jun, [facility], [place] [address] [id number] [address] [place] [address] May, 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 [facility], [place] [address] [facility] [id number] [address] [place] [address] May, [facility], [place] [address] [id number] [address] [place] [address] Apr, [facility], [place] [address] [facility] [id number] [address] [place] [phone] Mar, [facility], [place] [address] [facility] [id number] [address] [place] [phone] Feb, [facility], [place] [address] [facility] [id number] [address] [place] [phone] Jan, Poison janneth 692.6 [facility], [place] [address] [facility] [id number] [address] [place] [address] Jan, Attention deficit disorder ( ADD) 314.00 [facility], [place] [address] [facility] [id number] [address] [place] [address] Jan, [facility] [address] [id number] [address] [place] [address], [place] [address] Jan, Anni valdovinos 692.6 [facility] [address] [id number] [address] [place] [address], [place] [address] December, [facility] [address] [id number] [address] [place] [address], [place] [address] Nov, [facility] [address] [id number] [address] [place] [address], [place] [address] Nov, [facility] [address] [id number] [address] [place] [address], [place] [address] Oct, [facility] [address] [id number] [address] [place] [address], [place] [address] Oct, [facility] [address] [id number] [address] [place] [address], [place] [address] Oct, [facility] [address] [id number] [address] [place] [phone] Oct, [facility] [address] [id number] [address] [place] [address], [place] [address] Oct, [facility] [address] [id number] [address] [place] [phone] Oct, [facility] [address] [id number] [address] [place] [address], [place] [address] Oct, [facility] [address] [id number] [address] [place] [phone] Oct, [facility] [address] [id number] [address] [place] [address], [place] [address] Sep, [facility] [address] [id number] [address] [place] [phone] Sep, [facility] [address] [id number] [address] [place] [address], [place] [id number] Aug, [facility] [address] [id number] [address] [place] [address], [place] [address] Aug, [facility] [address] [id number] [address] [place] [address], [place] [address] Aug, [facility] [address] [id number] [address] [place] [address], [place] [address] Aug, [facility] [address] [id number] [address] [place] [address], [place] [address] Aug, [facility] [address] [id number] [address] [place] [address], [place] [address] Aug, [facility] [address] [id number] [address] [place] [address], [place] [address] Jul, [facility] [address] [id number] [address] [place] [address], [place] [address] Jul, [facility] [address] [id number] [address] [place] [address], [place] [address] Jun, [facility] [address] [id number] [address] [place] [address], [place] [address] Jun, [facility] [address] [id number] [address] [place] [address], [place] [address] Jun, [facility] [address] [id number] [address] [place] [address], [place] [address] Jun, [facility] [address] [id number] [address] [place] [address], [place] [address] May, [facility] [address] [id number] [address] [place] [address], [place] [address] May, [facility] [address] [id number] [address] [place] [address], [place] [address] Apr, [facility] [address] [id number] [address] [place] [address], [place] [address] Apr, [facility] [address] [id number] [address] [place] [address], [place] [address] Mar, [facility] [address] [id number] [address] [place] [address], [place] [address] Mar, [facility] [address] [id number] [address] [place] [address], [place] [address] Feb, [facility] [address] [id number] [address] [place] [address], [place] [address] Feb, [facility] [address] [id number] [address] [place] [address], [place] [address] Feb, [facility] [address] [id number] [address] [place] [address], [place] [address] Feb, [facility] [address] [id number] [address] [place] [address], [place] [address] Jan, [facility] [address] [id number] [address] [place] [address], [place] [address] Jan, [facility] [address] [id number] [address] [place] [address], [place] [address] Jan, [facility] [address] [id number] [address] [place] [address], [place] [address] Jan, [facility] [address] [id number] [address] [place] [address], [place] [address] December, [facility] [address] [id number] [address] [place] [address], [place] [address] December, [facility] [address] [id number] [address] [place] [address], [place] [address] December, [facility] [address] [id number] [address] [place] [address], [place] [address] December, [facility] [address] [id number] [address] [place] [address], [place] [address] Nov, [facility] [address] [id number] [address] [place] [address], [place] [id number] Nov, [facility] [address] [id number] [address] [place] [address], [place] [address] Oct, [facility] [address] [id number] [address] [place] [address], [place] [address] Oct, [facility] [address] [id number] [address] [place] [address], [place] [address] Sep, [facility] [address] [id number] [address] [place] [address], [place] [address] Sep, [facility] [address] [id number] [address] [place] [address], [place] [address] Aug, [facility] [address] [id number] [address] [place] [address], [place] [address] Aug, [facility] [address] [id number] [address] [place] [address], [place] [address] Jul, [facility] [address] [id number] [address] [place] [address], [place] [address] Jul, [facility] [address] [id number] [address] [place] [address], [place] [address] Jun, [facility] [address] [id number] [address] [place] [address], [place] [address] Jun, [facility] [address] [id number] [address] [place] [address], [place] [id number] Jun, [facility] [address] [id number] [address] [place] [address], [place] [id number] Jun, [facility] [address] [id number] [address] [place] [address], [place] [id number] May, [facility] [address] [id number] [address] [place] [address], [place] [id number] May, [facility] [address] [id number] [address] [place] [address], [place] [id number] May, [facility] [address] [id number] [address] [place] [address], [place] [id number] 30 Apr, 2013 [facility] [address] [id number] [address] [place] [address], [place] [id number] Mar, [facility] [address] [id number] [address] [place] [address], [place] [id number] Mar, [facility] [address] [id number] [address] [place] [address], [place] [id number] Mar, [facility] [address] [id number] [address] [place] [address], [place] [id number] Mar, [facility] [address] [id number] [address] [place] [address], [place] [id number] Feb, [facility] [address] [id number] [address] [place] [address], [place] [id number] Feb, [facility] [address] [id number] [address] [place] [address], [place] [id number] Feb, [facility] [address] [id number] [address] [place] [address], [place] [id number] Jan, [facility] [address] [id number] [address] [place] [address], [place] [id number] Jan, [facility] [address] [id number] [address] [place] [address], [place] [id number] December, [facility] [address] [id number] [address] [place] [address], [place] [id number] Nov, [facility] [address] [id number] [address] [place] [address], [place] [id number] Nov, [facility] [address] [id number] [address] [place] [address], [place] [id number] Oct, [facility] [address] [id number] [address] [place] [address], [place] [id number] Oct, [facility] [address] [id number] [address] [place] [address], [place] [id number] Oct, [facility] [address] [id number] [address] [place] [address], [place] [id number] Sep, [facility] [address] [id number] [address] [place] [address], [place] [id number] Sep, [facility] [address] [id number] [address] [place] [address], [place] [id number] Aug, [facility] [address] [id number] [address] [place] [address], [place] [id number] Jun, [facility] [address] [id number] [address] [place] [address], [place] [id number] Jun, [facility] [address] [id number] [address] [place] [address], [place] [id number] Jun, [facility] [address] [id number] [address] [place] [address], [place] [id number] Jun, [facility] [address] [id number] [address] [place] [address], [place] [id number] Jun, [facility] [address] [id number] [address] [place] [address], [place] [id number] Jun, [facility] [address] [id number] [address] [place] [address], [place] [id number] Jun, [facility] [address] [id number] [address] [place] [id number] Jun, [facility] [address] [id number] [address] [place] [address], [place] [id number] May, [facility] [address] [id number] [address] [place] [id number] May, [facility] [address] [id number] [address] [place] [address], [place] [id number] May, [facility] [address] [id number] [address] [place] [address], [place] [id number] May, [facility] [address] [id number] [address] [place] [address], [place] [id number] May, [facility] [address] [id number] [address] [place] [address], [place] [id number] 03 May, 2012 [facility] [address] [id number] [address] [place] [address], [place] [id number] 08 Apr, 2012 [facility] [address] [id number] [address] [place] [address], [place] [id number] 06 Apr, 2012 [facility] [address] [id number] [address] [place] [address], [place] [id number] Mar, [facility] [address] [id number] [address] [place] [address], [place] [id number] Feb, [facility] [address] [id number] [address] [place] [address], [place] [id number] Jan, [facility] [address] [id number] [address] [place] [address], [place] [id number] December, [facility] [address] [id number] [address] [place] [address], [place] [id number] Nov, [facility] [address] [id number] [address] [place] [address], [place] [id number] 24 Oct, 2011 [facility] [address] [id number] [address] [place] [address], [place] [id number] Oct, [facility] [address] [id number] [address] [place] [address], [place] [id number] Aug, [facility] [address] [id number] [address] [place] [address], [place] [id number] Jul, [facility] [address] [id number] [address] [place] [address], [place] [id number] 15 Jun, 2011 [facility] [address] [id number] [address] [place] [address], [place] [id number] 14 Jun, 2011 [facility] [address] [id number] [address] [place] [address], [place] [id number] 31 May, 2011 [facility] [address] [id number] [address] [place] [address], [place] [id number] 31 May, 2011 [facility] [address] [id number] [address] [place] [id number] Aug, [facility] [place] [address] [id number] [address] [place] [id number] Jul, [facility] [place] [address] [id number] [address] [place] [id number] Jul, [facility] [place] [address] [id number] [address] [place] [id number] Jun, [facility] [place] [address] [id number] [address] [place] [id number] Jun, [facility] [place] [address] [id number] [address] [place] [id number] Jun, [facility] [place] [address] [id number] [address] [place] [id number] Jun, [facility] [place] [address] [id number] [address] [place] [id number] Jun, [facility] [place] [address] [id number] [address] [place] [id number] May, [facility] [place] [address] [id number] [address] [place] [id number] May, [facility] [place] [address] [id number] [address] [place] [id number] May, IMMUNIZATIONS No Known Immunizations SOCIAL HISTORY Never Assessed REASON FOR VISIT PLAN OF CARE VITAL SIGNS Height 69 in 2013-05-24 Weight 209 lbs 2013-05-24 Temperature 98.8 degrees Fahrenheit 2013-05-24 Heart Rate 78 bpm 2013-05-24 Respiratory Rate 22 2013-05-24 Blood pressure systolic 128 mmHg 2013-05-24 Blood pressure diastolic 82 mmHg 2013-05-24 MEDICATIONS Unknown Medications RESULTS No Results PROCEDURES No Known procedures INSTRUCTIONS MEDICATIONS ADMINISTERED No Known Medications MEDICAL (GENERAL) HISTORY Type Description Date Medical History attention deficit hyperactivity disorder Medical History Mood disorder Surgical History No Surgical history information Hospitalization History [facility] P[facility] 04/2016
--- OUTSIDE RECORDS SUMMARY | 2020-02-16 14:10 | XMS REPORT ---
Author Author Andrew Garcia Doctor Organization [facility] Address Unknown Phone Unavailable Care Team Providers Care Deicer Kit Assembler Name Role Phone Migration, Doctor Unavailable Unavailable PROBLEMS Type Condition ICD9-CM Code FLY55-[place] Code Onset Dates Condition S tatus SNOMED Code Problem Attention deficit hyperactivity disorder (ADHD), combi david type F90.2 Active 693220302 Problem Gastroesophageal reflux disease, esophagitis pre sence not specified K21.9 Active 832170373 Problem Gastroesophageal reflux disease, esophagitis pre sence not specified K21.9 Active 776063203 Problem Mood disorder F39 Active 006170 05 Problem Attention deficit hyperactiv ity disorder (ADHD), predominantly inattentive type F90.0 Active 51443672 Problem Adjustment disorder with anxiety F43.22 Active 70815804 Problem Generalized anxiety disorder F41.1 A ctive [id number] ALLERGIES No Information ENCOUNTERS Encounter Location Date Diagnosis [facility] [address] [address] December, [facility] [address] [address] Nov, Muscle cramps R25.2 ; Elevat ed CPK R74.8 ; Elevated LFTs R79.89 ; Elevated blood pressure reading R03.[address] [facility] [address] [place] [id number] [address] [place] [address] Nov, [facility] [address] [place] [address] [id number] [address] [place] [address] Nov, Muscle cramps R25.2 [facility] [address] [place] [address] [id number] [address] [place] [address] Nov, [facility] [address] [id number] [address] [place] [address] Nov, Fever R50.9 and Viral URI wi th cough J06.9 [facility] [address] [facility] [id number] [address] [place] [id number] 08 Nov, 2019 [facility] [address] [facility] [id number] [address] [place] [address] Oct, Flu-like symptoms R68.89 [place] [address] [facility] [id number] [address] [place] [address] Oct, Mood disorder F39 [facility] [id number] [id number] [id number] Oct, [address] [id number] [address] Oct, [facility] [address] [facility] [id number] [address] [place] [address] Sep, Laceration of right index fi nger without foreign body without damage to nail, initial encounter S61.210A [facility] [address] [facility] [id number] [address] [place] [address] Aug, [place] [address] [facility] [id number] [address] [place] [address] Aug, [facility] [address] [facility] [id number] [address] [place] [address] Jul, Laceration of left index fin guerline without foreign body without damage to nail, initial encounter S61.211A and Encounter for immunization Z23 [place] [address] [facility] [id number] [address] [place] [address] Jul, Abnormal LFTs R94.5 [place] [address] [facility] [id number] [address] [place] [address] Jul, Abnormal LFTs R94.5 [place] [address] [facility] [id number] [address] [place] [address] Jul, Gastroesophageal reflux dise ase, esophagitis presence not specified K21.9 and Diarrhea, unspecified type R19.7 [place] [address] [address] May, Bronchitis J40 [place] [address] [address] May, Attention deficit hyperactiv ity disorder (ADHD), combined type F90.2 [place] [address] [address] Apr, Adjustment disorder with anx iety F43.22 [place] [address] [address] Apr, Generalized anxiety disorder F41.1 and Attention deficit hyperactivity disorder (ADHD), combined type F90.2 [place] [address] [address] Mar, Generalized anxiety disorder F41.1 and Attention deficit hyperactivity disorder (ADHD), combined type F90.2 [place] [address] [address] Feb, Attention deficit hyperactiv ity disorder (ADHD), combined type F90.2 and Generalized anxiety disorder F41.1 [place] [address] [address] Feb, Adjustment disorder with anx iety F43.22 [place] [address] [address] Jan, Adjustment disorder with anx iety F43.22 [place] [address] [address] Aug, Blood in stool K92.1 and His tory of hemorrhoids Z87.19 [place] [address] [address] Jul, Attention deficit hyperactiv ity disorder (ADHD), combined type F90.2 [place] [address] [address] Jul, Attention deficit hyperactiv ity disorder (ADHD), combined type F90.2 and Adjustment disorder with anxiety F43.22 [facility] [address] [place] [id number] [place] [address] 26 Jun, 2018 Bloody stools K92.1 and Acut e bilateral low back pain without sciatica M54.5 [facility] [address] [place] [id number] [address] [place] [address] 08 Jun, 2018 Attention deficit hyperactiv ity disorder (ADHD), combined type F90.2 [facility] [address] [place] [id number] [address] [place] [id number] 15 May, 2018 Attention deficit hyperactiv ity disorder (ADHD), combined type F90.2 [facility] [address] [place] [id number] [place] [address] 10 Apr, 2018 Attention deficit hyperactiv ity disorder (ADHD), combined type F90.2 [facility] [address] [place] [id number] [address] [place] [address] Mar, Attention deficit hyperactiv ity disorder (ADHD), combined type F90.2 [facility] [address] [place] [id number] [address] [place] [address] Mar, Attention deficit hyperactiv ity disorder (ADHD), combined type F90.2 [facility] [address] [place] [id number] [address] [place] [address] Mar, Attention deficit hyperactiv ity disorder (ADHD), combined type F90.2 and High risk medication use Z79.899 [facility] [address] [place] [id number] [address] [place] [address] 14 Mar, [address] [facility] [address] [place] [id number] [address] [place] [address] Feb, Attention deficit hyperactiv ity disorder (ADHD), combined type F90.2 [facility] [address] [place] [id number] [address] [place] [address] Jan, Attention deficit hyperactiv ity disorder (ADHD), combined type F90.2 and High risk medication use Z79.899 [place] [address] [place], [place] [id number] 13 Sep, 2017 Acute cystitis without hematuria N30.00 and Acute suppurative otitis media of left ear with spontaneous rupture of tympanic membrane, recurrence not specified H66.012 [place] [address] [place], [place] [id number] Jul, Seborrheic keratoses L82.1 and Mood disorder F39 [address] [id number] Jul, Attention deficit hyperactivity disorder (ADHD), predominantly inattentive type F90.[address] [id number] Jul, [address] [facility] [address] [facility] [id number] [address] [place] [address] Sep, [facility] [address] [id number] [address] [place] [address] Aug, [facility] [address] [id number] [address] [place] [address] Jul, [facility] [address] [facility] [id number] [address] [place] [address] Jul, [facility] [address] [facility] [id number] [address] [place] [address] Jun, Attention deficit hyperactiv ity disorder (ADHD), combined type F90.2 [facility] [address] [id number] [address] [place] [address] May, [facility] [address] [id number] [address] [place] [address] Apr, Attention deficit hyperactiv ity disorder (ADHD), combined type F90.2 [facility] [address] [facility] [id number] [address] [place] [address] Mar, Acute non-recurrent maxillar y sinusitis J01.00 [facility] [address] [id number] [address] [place] [address] Mar, Acute non-recurrent maxillar y sinusitis J01.00 [facility] [address] [facility] [id number] [address] [place] [address] Mar, [facility] [address] [facility] [id number] [address] [place] [address] Feb, Gastroenteritis K52.9 [facility] [address] [facility] [id number] [address] [place] [address] Feb, [facility] [address] [id number] [address] [place] [address] Jan, [facility] [address] [facility] [id number] [address] [place] [address] December, [facility] [address] [facility] [id number] [address] [place] [address] December, Rash R21 [facility] [address] [facility] [id number] [address] [place] [address] Nov, [facility] [address] [facility] [id number] [address] [place] [address] Nov, [facility] [address] [facility] [id number] [address] [place] [address] Oct, [facility] [address] [facility] [id number] [address] [place] [address] Oct, Attention deficit hyperactiv ity disorder (ADHD), combined type F90.2 [facility] [address] [facility] [id number] [address] [place] [address] Sep, [facility] [address] [facility] [id number] [address] [place] [address] Sep, Viral syndrome B34.9 and HSV (herpes simplex virus) infection B00.9 [facility] [address] [facility] [id number] [address] [place] [address] Aug, [facility] [address] [facility] [id number] [address] [place] [address] Aug, [facility] [address] [facility] [id number] [address] [place] [address] Jul, [facility] [address] [facility] [id number] [address] [place] [address] Jun, Gastroenteritis K52.9 [facility] [address] [facility] [id number] [address] [place] [address] Jun, [facility] [address] [place] [id number] [address] [place] [address] Jun, Attention deficit hyperactiv ity disorder (ADHD), combined type F90.2 [facility] [address] [facility] [id number] [address] [place] [address] Jun, 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 [address] [facility] [id number] [address] [place] [address] May, [facility] [address] [place] [id number] [address] [place] [address] Apr, [facility] [address] [facility] [id number] [address] [place] [address] Mar, [facility] [address] [facility] [id number] [address] [place] [address] Feb, [facility] [address] [facility] [id number] [address] [place] [address] Jan, Poison janneth 692.6 [facility] [address] [facility] [id number] [address] [place] [address] Jan, Attention deficit disorder ( ADD) 314.00 [facility] [address] [facility] [id number] [address] [place] [address] Jan, [facility] [address] [id number] [address] [place] [address], [place] [address] Jan, Anni valdovinos 692.6 [facility] [address] [id number] [address] [place] [address], [place] [address] December, [facility] [address] [id number] [address] [place] [address], [place] [address] Nov, [facility] [address] [id number] [address] [place] [address], [place] [address] Nov, [facility] [address] [id number] [address] [place] [address], [place] [address] Oct, [facility] [address] [id number] [address] [place] [address], [place] [address] Oct, [facility] [address] [id number] [address] [place] [address], [place] [address] Oct, [facility] [address] [id number] [address] [place] [address] Oct, [facility] [address] [id number] [address] [place] [address], [place] [address] Oct, [facility] [address] [id number] [address] [place] [phone] Oct, [facility] [address] [id number] [address] [place] [address], [place] [address] Oct, [facility] [address] [id number] [address] [place] [address] Oct, [facility] [address] [id number] [address] [place] [address], [place] [address] Sep, [facility] [address] [id number] [address] [place] [phone] Sep, [facility] [address] [id number] [address] [place] [address], [place] [address] Aug, [facility] [address] [id number] [address] [place] [address], [place] [address] Aug, [facility] [address] [id number] [address] [place] [address], [place] [address] Aug, [facility] [address] [id number] [address] [place] [address], [place] [address] Aug, [facility] [address] [id number] [address] [place] [address], [place] [address] Aug, [facility] [address] [id number] [address] [place] [address], [place] [address] Aug, [facility] [address] [id number] [address] [place] [address], [place] [address] Jul, [facility] [address] [id number] [address] [place] [address], [place] [address] Jul, [facility] [address] [id number] [address] [place] [address], [place] [address] Jun, [facility] [address] [id number] [address] [place] [address], [place] [address] Jun, [facility] [address] [id number] [address] [place] [address], [place] [address] Jun, [facility] [address] [id number] [address] [place] [address], [place] [address] Jun, [facility] [address] [id number] [address] [place] [address], [place] [address] May, [facility] [address] [id number] [address] [place] [address], [place] [address] May, [facility] [address] [id number] [address] [place] [address], [place] [address] Apr, [facility] [address] [id number] [address] [place] [address], [place] [address] Apr, [facility] [address] [id number] [address] [place] [address], [place] [address] Mar, [facility] [address] [id number] [address] [place] [address], [place] [address] Mar, [facility] [address] [id number] [address] [place] [address], [place] [address] Feb, [facility] [address] [id number] [address] [place] [address], [place] [address] Feb, [facility] [address] [id number] [address] [place] [address], [place] [address] Feb, [facility] [address] [id number] [address] [place] [address], [place] [address] Feb, [facility] [address] [id number] [address] [place] [address], [place] [address] Jan, [facility] [address] [id number] [address] [place] [address], [place] [address] Jan, [facility] [address] [id number] [address] [place] [address], [place] [address] Jan, [facility] [address] [id number] [address] [place] [address], [place] [address] Jan, [facility] [address] [id number] [address] [place] [address], [place] [address] December, [facility] [address] [id number] [address] [place] [address], [place] [address] December, [facility] [address] [id number] [address] [place] [address], [place] [address] December, [facility] [address] [id number] [address] [place] [address], [place] [address] December, [facility] [address] [id number] [address] [place] [address], [place] [address] Nov, [facility] [address] [id number] [address] [place] [address], [place] [address] Nov, [facility] [address] [id number] [address] [place] [address], [place] [address] Oct, [facility] [address] [id number] [address] [place] [address], [place] [address] Oct, [facility] [address] [id number] [address] [place] [address], [place] [address] Sep, [facility] [address] [id number] [address] [place] [address], [place] [address] Sep, [facility] [address] [id number] [address] [place] [address], [place] [address] Aug, [facility] [address] [id number] [address] [place] [address], [place] [address] Aug, [facility] [address] [id number] [address] [place] [address], [place] [address] Jul, [facility] [address] [id number] [address] [place] [address], [place] [address] Jul, [facility] [address] [id number] [address] [place] [address], [place] [address] Jun, [facility] [address] [id number] [address] [place] [address], [place] [address] Jun, [facility] [address] [id number] [address] [place] [address], [place] [address] Jun, [facility] [address] [id number] [address] [place] [address], [place] [address] Jun, [facility] [address] [id number] [address] [place] [address], [place] [address] May, [facility] [address] [id number] [address] [place] [address], [place] [address] May, [facility] [address] [id number] [address] [place] [address], [place] [address] May, [facility] [address] [id number] [address] [place] [address], [place] [address] 30 Apr, 2013 [facility] [address] [id number] [address] [place] [address], [place] [address] Mar, [facility] [address] [id number] [address] [place] [address], [place] [address] Mar, [facility] [address] [id number] [address] [place] [address], [place] [address] Mar, [facility] [address] [id number] [address] [place] [address], [place] [address] Mar, [facility] [address] [id number] [address] [place] [address], [place] [address] Feb, [facility] [address] [id number] [address] [place] [address], [place] [address] Feb, [facility] [address] [id number] [address] [place] [address], [place] [address] Feb, [facility] [address] [id number] [address] [place] [address], [place] [address] Jan, [facility] [address] [id number] [address] [place] [address], [place] [address] Jan, [facility] [address] [id number] [address] [place] [address], [place] [address] December, [facility] [address] [id number] [address] [place] [address], [place] [address] Nov, [facility] [address] [id number] [address] [place] [address], [place] [address] Nov, [facility] [address] [id number] [address] [place] [address], [place] [address] Oct, [facility] [address] [id number] [address] [place] [address], [place] [address] Oct, [facility] [address] [id number] [address] [place] [address], [place] [address] Oct, [facility] [address] [id number] [address] [place] [address], [place] [address] Sep, [facility] [address] [id number] [address] [place] [address], [place] [address] Sep, [facility] [address] [id number] [address] [place] [address], [place] [address] Aug, [facility] [address] [id number] [address] [place] [address], [place] [address] Jun, [facility] [address] [id number] [address] [place] [address], [place] [address] Jun, [facility] [address] [id number] [address] [place] [address], [place] [address] Jun, [facility] [address] [id number] [address] [place] [address], [place] [address] Jun, [facility] [address] [id number] [address] [place] [address], [place] [address] Jun, [facility] [address] [id number] [address] [place] [address], [place] [address] Jun, [facility] [address] [id number] [address] [place] [address], [place] [address] Jun, [facility] [address] [id number] [address] [place] [address] Jun, [facility] [address] [id number] [address] [place] [address], [place] [address] May, [facility] [address] [id number] [address] [place] [address] May, [facility] [address] [id number] [address] [place] [address], [place] [address] May, [facility] [address] [id number] [address] [place] [address], [place] [address] May, [facility] [address] [id number] [address] [place] [address], [place] [address] May, [facility] [address] [id number] [address] [place] [address], [place] [address] 03 May, 2012 [facility] [address] [id number] [address] [place] [address], [place] [address] 08 Apr, 2012 [facility] [address] [id number] [address] [place] [address], [place] [address] 06 Apr, 2012 [facility] [address] [id number] [address] [place] [address], [place] [address] Mar, [facility] [address] [id number] [address] [place] [address], [place] [address] Feb, [facility] [address] [id number] [address] [place] [address], [place] [address] Jan, [facility] [address] [id number] [address] [place] [address], [place] [address] December, [facility] [address] [id number] [address] [place] [address], [place] [address] Nov, [facility] [address] [id number] [address] [place] [address], [place] [address] 24 Oct, 2011 [facility] [address] [id number] [address] [place] [address], [place] [address] Oct, [facility] [address] [id number] [address] [place] [address], [place] [address] Aug, [facility] [address] [id number] [address] [place] [address], [place] [id number] Jul, [facility] [address] [id number] [address] [place] [address], [place] [id number] 15 Jun, 2011 [facility] [address] [id number] [address] [place] [address], [place] [id number] 14 Jun, 2011 [facility] [address] [id number] [address] [place] [address], [place] [id number] 31 May, 2011 [facility] [address] [id number] [address] [place] [address], [place] [id number] 31 May, 2011 [facility] [address] [id number] [address] [place] [id number] Aug, [facility] [address] [id number] [address] [place] [id number] Jul, [facility] [address] [id number] [address] [place] [id number] Jul, [facility] [address] [id number] [address] [place] [id number] Jun, [facility] [address] [id number] [address] [place] [id number] Jun, [facility] [address] [id number] [address] [place] [id number] Jun, [facility] [address] [id number] [address] [place] [id number] Jun, [facility] [address] [id number] [address] [place] [id number] Jun, [facility] [address] [id number] [address] [place] [id number] May, [facility] [address] [id number] [address] [place] [id number] May, [facility] [address] [id number] [address] [place] [id number] May, IMMUNIZATIONS No Known Immunizations SOCIAL HISTORY [...]
--- OUTSIDE RECORDS SUMMARY | 2020-02-16 14:11 | XMS REPORT ---
Author Author Andrew Machuca Organization [facility] Address Unknown Care Team Providers Care Medical Cost Consultant Name Role Phone FORD Machuca Unavailable PROBLEMS Type Condition ICD9-CM Code YKA20-CH Code Onset Dates Condition S tatus SNOMED Code Problem Attention deficit hyperactivity disorder (ADHD), combi david type F90.2 Active 385854722 Problem Gastroesophageal reflux disease, esophagitis pre sence not specified K21.9 Active 641482694 Problem Gastroesophageal reflux disease, esophagitis pre sence not specified K21.9 Active 908401621 Problem Mood disorder F39 Active 245765 05 Problem Attention deficit hyperactiv ity disorder (ADHD), predominantly inattentive type F90.0 Active 25323962 Problem Adjustment disorder with anxiety F43.22 Active 17186299 Problem Generalized anxiety disorder F41.1 A ctive [id number] ALLERGIES No Information ENCOUNTERS Encounter Location Date Diagnosis [facility] [address] [id number] [address] [place] [address] December, [facility] [address] [id number] [address] [place] [address] Nov, [facility] [address] [id number] [address] [place] [address] Nov, Fever R50.9 and Viral URI wi th cough J06.9 [facility] [address] [facility] [id number] [address] [place] [address] Nov, [facility] [address] [facility] [id number] [address] [place] [address] Oct, Flu-like symptoms R68.89 [facility] [address] [facility] [id number] [address] [place] [address] Oct, Mood disorder F39 [facility] [id number] [place] [id number] Oct, [facility] [place] [id number] [address] Oct, [facility] [address] [facility] [id number] [address] [place] [address] Sep, Laceration of right index fi nger without foreign body without damage to nail, initial encounter S61.210A [facility] [address] [facility] [id number] [address] [place] [address] Aug, [facility] [address] [facility] [id number] [address] [place] [address] Aug, [facility] [address] [facility] [id number] [address] [place] [address] Jul, Laceration of left index fin guerline without foreign body without damage to nail, initial encounter S61.211A and Encounter for immunization Z23 [place] [address] [facility] [id number] [address] [place] [address] Jul, Abnormal LFTs R94.5 [place] [address] [facility] [id number] [address] [place] [address] Jul, Abnormal LFTs R94.5 [place] [address] [facility] [id number] [address] [place] [address] Jul, Gastroesophageal reflux dise ase, esophagitis presence not specified K21.9 and Diarrhea, unspecified type R19.7 [place] [address] [facility] [id number] [address] [place] [address] May, Bronchitis J40 [place] [address] [facility] [id number] [address] [place] [address] May, Attention deficit hyperactiv ity disorder (ADHD), combined type F90.2 [place] [address] [facility] [id number] [address] [place] [address] Apr, Adjustment disorder with anx iety F43.22 [place] [id number] [place] [address] Apr, Generalized anxiety disorder F41.1 and Attention deficit hyperactivity disorder (ADHD), combined type F90.2 [place] [id number] [place] [address] Mar, Generalized anxiety disorder F41.1 and Attention deficit hyperactivity disorder (ADHD), combined type F90.2 [place] [address] [address] Feb, Attention deficit hyperactiv ity disorder (ADHD), combined type F90.2 and Generalized anxiety disorder F41.1 [place] [address] [address] Feb, Adjustment disorder with anx iety F43.22 [place] [address] [address] Jan, Adjustment disorder with anx iety F43.22 [address] [address] [address] Aug, Blood in stool K92.1 and His tory of hemorrhoids Z87.19 [place] [id number] [place] [address] Jul, Attention deficit hyperactiv ity disorder (ADHD), combined type F90.2 [place] [address] [address] Jul, Attention deficit hyperactiv ity disorder (ADHD), combined type F90.2 and Adjustment disorder with anxiety F43.22 [place] [address] [address] Jun, Bloody stools K92.1 and Acut e bilateral low back pain without sciatica M54.5 [place] [id number] [place] [address] Jun, Attention deficit hyperactiv ity disorder (ADHD), combined type F90.2 [facility] [address] [facility] [id number] [address] [place] [address] 15 May, 2018 Attention deficit hyperactiv ity disorder (ADHD), combined type F90.2 [facility] [address] [facility] [id number] [address] [place] [address] 10 Apr, 2018 Attention deficit hyperactiv ity disorder (ADHD), combined type F90.2 [facility] [address] [facility] [id number] [address] [place] [address] Mar, Attention deficit hyperactiv ity disorder (ADHD), combined type F90.2 [facility] [address] [facility] [id number] [address] [place] [address] Mar, Attention deficit hyperactiv ity disorder (ADHD), combined type F90.2 [facility] [id number] [address] [place] [address] Mar, Attention deficit hyperactiv ity disorder (ADHD), combined type F90.2 and High risk medication use Z79.899 [facility] [address] [facility] [id number] [address] [place] [address] Mar, Gastroenteritis K52.9 [facility] [address] [facility] [id number] [address] [place] [address] Feb, Attention deficit hyperactiv ity disorder (ADHD), combined type F90.2 [facility] [address] [facility] [id number] [address] [place] [address] Jan, Attention deficit hyperactiv ity disorder (ADHD), combined type F90.2 and High risk medication use Z79.899 [facility] [address] [place], [place] [id number] 13 Sep, 2017 Acute cystitis without hematuria N30.00 and Acute suppurative otitis media of left ear with spontaneous rupture of tympanic membrane, recurrence not specified H66.012 [facility] [address] [place], [place] [id number] 57 Jul, Seborrheic keratoses L82.1 and Mood disorder F39 [facility] [address] [facility] [place] [id number] 57 Jul, Attention deficit hyperactivity disorder (ADHD), predominantly inattentive type F90.0 [facility] [address] [place] [id number] 57 Jul, Mood disorder F39 [facility] [address] [id number] [address] [place] [address] Sep, [facility] [address] [id number] [address] [place] [address] Aug, [facility] [address] [id number] [address] [place] [address] Jul, [facility] [address] [id number] [address] [place] [address] Jul, [facility] [address] [facility] [id number] [address] [place] [address] Jun, Attention deficit hyperactiv ity disorder (ADHD), combined type F90.2 [facility] [address] [id number] [address] [place] [address] May, [facility] [address] [id number] [address] [place] [address] Apr, Attention deficit hyperactiv ity disorder (ADHD), combined type F90.2 [facility] [address] [id number] [address] [place] [address] Mar, Acute non-recurrent maxillar y sinusitis J01.00 [facility] [address] [id number] [address] [place] [address] Mar, Acute non-recurrent maxillar y sinusitis J01.00 [facility] [address] [id number] [address] [place] [address] Mar, [facility] [address] [id number] [address] [place] [address] Feb, Gastroenteritis K52.9 [facility] [address] [facility] [id number] [address] [place] [address] Feb, [facility] [address] [facility] [id number] [address] [place] [address] Jan, [facility] [address] [facility] [id number] [address] [place] [address] December, [facility] [address] [facility] [id number] [address] [place] [address] December, Rash R21 [facility] [address] [facility] [id number] [address] [place] [address] Nov, [facility] [address] [facility] [id number] [address] [place] [address] Nov, [facility] [address] [facility] [id number] [address] [place] [address] Oct, [facility] [address] [id number] [address] [place] [address] Oct, Attention deficit hyperactiv ity disorder (ADHD), combined type F90.2 [facility] [address] [facility] [id number] [address] [place] [address] Sep, [facility] [id number] [address] [place] [address] Sep, Viral syndrome B34.9 and HSV (herpes simplex virus) infection B00.9 [facility] [address] [facility] [id number] [address] [place] [address] Aug, [facility] [address] [facility] [id number] [address] [place] [address] Aug, [facility] [address] [facility] [id number] [address] [place] [address] Jul, [facility] [address] [facility] [id number] [address] [place] [address] Jun, Gastroenteritis K52.9 [facility] [id number] [place] [address] Jun, [facility] [address] [facility] [id number] [address] [place] [address] Jun, Attention deficit hyperactiv ity disorder (ADHD), combined type F90.2 [facility] [address] [facility] [id number] [address] [place] [address] Jun, [facility] [address] [facility] [id number] [address] [place] [address] May, 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 [facility] [address] [facility] [id number] [address] [place] [address] May, [facility] [address] [facility] [id number] [address] [place] [phone] Apr, [facility] [address] [facility] [id number] [address] [place] [address] Mar, [facility] [address] [facility] [id number] [address] [place] [address] Feb, [facility] [address] [facility] [id number] [address] [place] [address] Jan, Poison janneth 692.6 [facility] [address] [facility] [id number] [address] [place] [address] Jan, Attention deficit disorder ( ADD) 314.00 [facility] [address] [facility] [id number] [address] [place] [address] Jan, [facility] [address] [facility] [id number] [address] [place] [address] Jan, Poison janneth dermatitis 692.6 [facility] [address] [facility] [id number] [address] [place] [address] December, [facility] [address] [facility] [id number] [address] [place] [address] Nov, [facility] [address] [facility] [id number] [address] [place] [phone] Nov, [facility] [address] [id number] [address] [place] [address], [place] [address] Oct, [facility] [address] [id number] [address] [place] [address], [place] [address] Oct, [facility] [address] [id number] [address] [place] [address], [place] [address] Oct, [facility] [address] [id number] [address] [place] [address], [place] [address] Oct, [facility] [address] [id number] [address] [place] [address], [place] [address] Oct, [facility] [address] [id number] [address] [place] [address], [place] [address] Oct, [facility] [address] [id number] [address] [place] [address], [place] [address] Oct, [facility] [address] [id number] [address] [place] [address], [place] [address] Oct, [facility] [address] [id number] [address] [place] [address], [place] [address] Sep, [facility] [address] [id number] [address] [place] [address], [place] [address] Sep, [facility] [address] [id number] [address] [place] [address], [place] [address] Aug, [facility] [address] [id number] [address] [place] [address], [place] [address] Aug, [facility] [address] [id number] [address] [place] [address], [place] [address] Aug, [facility] [address] [id number] [address] [place] [address], [place] [address] Aug, [facility] [address] [id number] [address] [place] [address], [place] [address] Aug, [facility] [address] [id number] [address] [place] [address], [place] [address] Aug, [facility] [address] [id number] [address] [place] [address], [place] [address] Jul, [facility] [address] [id number] [address] [place] [address], [place] [address] Jul, [facility] [address] [id number] [address] [place] [address], [place] [address] Jun, [facility] [address] [id number] [address] [place] [address], [place] [address] Jun, [facility] [address] [id number] [address] [place] [address], [place] [address] Jun, [facility] [address] [id number] [address] [place] [address], [place] [address] Jun, [facility] [address] [id number] [address] [place] [address], [place] [address] May, [facility] [address] [id number] [address] [place] [address], [place] [address] May, [facility] [address] [id number] [address] [place] [address], [place] [address] Apr, [facility] [address] [id number] [address] [place] [address], [place] [address] Apr, [facility] [address] [id number] [address] [place] [address], [place] [address] Mar, [facility] [address] [id number] [address] [place] [address], [place] [address] Mar, [facility] [address] [id number] [address] [place] [address], [place] [address] Feb, [facility] [address] [id number] [address] [place] [address], [place] [address] Feb, [facility] [address] [id number] [address] [place] [address], [place] [address] Feb, [facility] [address] [id number] [address] [place] [address], [place] [address] Feb, [facility] [address] [id number] [address] [place] [address], [place] [address] Jan, [facility] [address] [id number] [address] [place] [address], [place] [address] Jan, [facility] [address] [id number] [address] [place] [address], [place] [address] Jan, [facility] [address] [id number] [address] [place] [address], [place] [address] Jan, [facility] [address] [id number] [address] [place] [address], [place] [address] December, [facility] [address] [id number] [address] [place] [address], [place] [address] December, [facility] [address] [id number] [address] [place] [address], [place] [address] December, [facility] [address] [id number] [address] [place] [address], [place] [address] December, [facility] [address] [id number] [address] [place] [address], [place] [address] Nov, [facility] [address] [id number] [address] [place] [address], [place] [address] Nov, [facility] [address] [id number] [address] [place] [address], [place] [address] Oct, [facility] [address] [id number] [address] [place] [address], [place] [address] Oct, [facility] [address] [id number] [address] [place] [address], [place] [address] Sep, [facility] [address] [id number] [address] [place] [address], [place] [address] Sep, [facility] [address] [id number] [address] [place] [address] Aug, [facility] [address] [id number] [address] [place] [address], [place] [address] Aug, [facility] [address] [id number] [address] [place] [address], [place] [address] Jul, [facility] [address] [id number] [address] [place] [address], [place] [address] Jul, [facility] [address] [id number] [address] [place] [address], [place] [address] Jun, [facility] [address] [id number] [address] [place] [address], [place] [address] Jun, [facility] [address] [id number] [address] [place] [address], [place] [address] Jun, [facility] [address] [id number] [address] [place] [address], [place] [address] Jun, [facility] [address] [id number] [address] [place] [address], [place] [address] May, [facility] [address] [id number] [address] [place] [address], [place] [address] May, [facility] [address] [id number] [address] [place] [address], [place] [address] May, [facility] [address] [id number] [address] [place] [address], [place] [address] Apr, [facility] [address] [id number] [address] [place] [address], [place] [address] Mar, [facility] [address] [id number] [address] [place] [address], [place] [address] Mar, [facility] [address] [id number] [address] [place] [address], [place] [address] Mar, [facility] [address] [id number] [address] [place] [address], [place] [address] Mar, [facility] [address] [id number] [address] [place] [address], [place] [address] 30 Feb, 2013 [facility] [address] [id number] [address] [place] [address], [place] [address] Feb, [facility] [address] [id number] [address] [place] [address], [place] [address] Feb, [facility] [address] [id number] [address] [place] [address], [place] [address] Jan, [facility] [address] [id number] [address] [place] [address], [place] [address] Jan, [facility] [address] [id number] [address] [place] [address], [place] [address] December, [facility] [address] [id number] [address] [place] [address], [place] [address] Nov, [facility] [address] [id number] [address] [place] [address], [place] [address] Nov, [facility] [address] [id number] [address] [place] [address], [place] [address] Oct, [facility] [address] [id number] [address] [place] [address], [place] [address] Oct, [facility] [address] [id number] [address] [place] [address], [place] [address] Oct, [facility] [address] [id number] [address] [place] [address], [place] [address] Sep, [facility] [address] [id number] [address] [place] [address], [place] [address] Sep, [facility] [address] [id number] [address] [place] [address], [place] [address] Aug, [facility] [address] [id number] [address] [place] [address], [place] [address] Jun, [facility] [address] [id number] [address] [place] [address], [place] [address] Jun, [facility] [address] [id number] [address] [place] [address], [place] [address] Jun, [facility] [address] [id number] [address] [place] [address], [place] [address] Jun, [facility] [address] [id number] [address] [place] [address], [place] [address] Jun, [facility] [address] [id number] [address] [place] [address], [place] [address] Jun, [facility] [address] [id number] [address] [place] [address], [place] [address] Jun, [facility] [address] [id number] [address] [place] [address], [place] [address] Jun, [facility] [address] [id number] [address] [place] [address], [place] [address] May, [facility] [address] [id number] [address] [place] [address], [place] [address] May, [facility] [address] [id number] [address] [place] [address], [place] [address] May, [facility] [address] [id number] [address] [place] [address], [place] [address] May, [facility] [address] [id number] [address] [place] [address], [place] [address] May, [facility] [address] [id number] [address] [place] [id number] May, [facility] [address] [id number] [address] [place] [address], [place] [address] Apr, [facility] [address] [id number] [address] [place] [address], [place] [address] 06 Apr, 2012 [facility] [address] [id number] [address] [place] [address], [place] [id number] Mar, [facility] [address] [id number] [address] [place] [address], [place] [address] Feb, [facility] [address] [id number] [address] [place] [address], [place] [address] Jan, [facility] [address] [id number] [address] [place] [address], [place] [address] December, [facility] [address] [id number] [address] [place] [address], [place] [address] Nov, [facility] [address] [id number] [address] [place] [address], [place] [address] 24 Oct, 2011 [facility] [address] [id number] [address] [place] [address], [place] [address] Oct, [facility] [address] [id number] [address] [place] [address], [place] [address] Aug, [facility] [address] [id number] [address] [place] [address], [place] [address] Jul, [facility] [address] [id number] [address] [place] [address], [place] [address] 15 Jun, 2011 [facility] [address] [id number] [address] [place] [address], [place] [address] 14 Jun, 2011 [facility] [address] [id number] [address] [place] [address], [place] [address] 31 May, 2011 [facility] [address] [id number] [address] [place] [address], [place] [address] 31 May, 2011 [facility] [address] [id number] [address] [place] [address], [place] [address] 12 Aug, 2010 [facility] [address] [id number] [address] [place] [address], [place] [address] 29 Jul, 2010 [facility] [address] [id number] [address] [place] [address], [place] [address] Jul, [facility] [address] [id number] [address] [place] [address], [place] [address] 17 Jun, 2010 [facility] [address] [id number] [address] [place] [id number] 17 Jun, 2010 [facility] [address] [id number] [address] [place] [phone] Jun, [facility] [address] [id number] [address] [place] [phone] Jun, [facility] [address] [id number] [address] [place] [phone] Jun, [facility] [address] [id number] [address] [place] [id number] 18 May, 2010 [facility] [address] [id number] [address] [place] [phone] May, [facility] [address] [facility] [id number] [address] [place] [id number] May, IMMUNIZATIONS No Known Immunizations SOCIAL HISTORY [...]
--- OUTSIDE RECORDS SUMMARY | 2020-02-16 14:11 | XMS REPORT ---
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 Name Role Phone NEGRITA FAVIAN Unavailable PROBLEMS Type Condition ICD9-CM Code WXS95-US Code Onset Dates Condition S tatus SNOMED Code Problem Attention deficit hyperactivity disorder (ADHD), combi david type F90.2 Active 796231660 Problem Gastroesophageal reflux disease, esophagitis pre sence not specified K21.9 Active 922485935 Problem Gastroesophageal reflux disease, esophagitis pre sence not specified K21.9 Active 770918199 Problem Mood disorder F39 Active 280242 05 Problem Attention deficit hyperactiv ity disorder (ADHD), predominantly inattentive type F90.0 Active 75080204 Problem Adjustment disorder with anxiety F43.22 Active 10953575 Problem Generalized anxiety disorder F41.1 A ctive [id number] ALLERGIES No Information ENCOUNTERS Encounter Location Date Diagnosis [facility] [address] [id number] [address] [place] [address] December, [facility] [address] [id number] [address] [place] [address] Nov, [facility] [address] [id number] [address] [place] [address] Nov, Fever R50.9 and Viral URI wi th cough J06.9 [facility] [address] [facility] [id number] [address] [place] [address] Nov, [facility] [address] [id number] [address] [place] [address] Oct, Flu-like symptoms R68.89 [facility] [address] [id number] [address] [place] [address] Oct, Mood disorder F39 [facility] [id number] [place] [id number] Oct, [facility] [place] [address] [id number] [place] [address] Oct, [facility] [address] [facility] [id number] [address] [place] [address] Sep, Laceration of right index fi nger without foreign body without damage to nail, initial encounter S61.210A [facility] [address] [facility] [id number] [address] [place] [address] Aug, [facility] [address] [facility] [id number] [address] [place] [address] Aug, [facility] [address] [facility] [id number] [address] [place] [address] Jul, Laceration of left index fin guerline without foreign body without damage to nail, initial encounter S61.211A and Encounter for immunization Z23 [facility] [address] [facility] [id number] [address] [place] [address] Jul, Abnormal LFTs R94.5 [address] [address] [facility] [id number] [address] [place] [address] Jul, Abnormal LFTs R94.5 [place] [address] [facility] [id number] [address] [place] [address] Jul, Gastroesophageal reflux dise ase, esophagitis presence not specified K21.9 and Diarrhea, unspecified type R19.7 [facility] [address] [facility] [id number] [address] [place] [address] May, Bronchitis J40 [facility] [address] [facility] [id number] [address] [place] [address] May, Attention deficit hyperactiv ity disorder (ADHD), combined type F90.2 [facility] [address] [facility] [id number] [address] [place] [address] Apr, Adjustment disorder with anx iety F43.22 [place] [id number] [place] [address] Apr, Generalized anxiety disorder F41.1 and Attention deficit hyperactivity disorder (ADHD), combined type F90.2 [place] [id number] [place] [address] Mar, Generalized anxiety disorder F41.1 and Attention deficit hyperactivity disorder (ADHD), combined type F90.2 [address] [address] [address] [address] Feb, Attention deficit hyperactiv ity disorder (ADHD), combined type F90.2 and Generalized anxiety disorder F41.1 [address] [address] [address] Feb, Adjustment disorder with anx iety F43.22 [address] [place] [address] [address] Jan, Adjustment disorder with anx iety F43.22 [address] [address] [address] Aug, Blood in stool K92.1 and His tory of hemorrhoids Z87.19 [place] [id number] [place] [address] Jul, Attention deficit hyperactiv ity disorder (ADHD), combined type F90.2 [address] [address] [address] Jul, Attention deficit hyperactiv ity disorder (ADHD), combined type F90.2 and Adjustment disorder with anxiety F43.22 [address] [address] [address] Jun, Bloody stools K92.1 and Acut e bilateral low back pain without sciatica M54.5 [place] [id number] [place] [address] Jun, Attention deficit hyperactiv ity disorder (ADHD), combined type F90.2 [facility] [address] [id number] [address] [place] [address] May, Attention deficit hyperactiv ity disorder (ADHD), combined type F90.2 [facility] [address] [id number] [address] [place] [address] 10 Apr, 2018 Attention deficit hyperactiv ity disorder (ADHD), combined type F90.2 [facility] [address] [id number] [address] [place] [address] Mar, Attention deficit hyperactiv ity disorder (ADHD), combined type F90.2 [facility] [address] [id number] [address] [place] [address] Mar, Attention deficit hyperactiv ity disorder (ADHD), combined type F90.2 [facility] [id number] [place] [address] Mar, Attention deficit hyperactiv ity disorder (ADHD), combined type F90.2 and High risk medication use Z79.899 [facility] [address] [address] Mar, Gastroenteritis K52.9 [facility] [id number] [place] [address] Feb, Attention deficit hyperactiv ity disorder (ADHD), combined type F90.2 [facility] [address] [id number] [address] [place] [address] 05 Jan, 2018 Attention deficit hyperactiv ity disorder (ADHD), combined type F90.2 and High risk medication use Z79.899 [address] [place], [place] [id number] 13 Sep, 2017 Acute cystitis without hematuria N30.00 and Acute suppurative otitis media of left ear with spontaneous rupture of tympanic membrane, recurrence not specified H66.012 [address] [place], [place] [id number] 57 19 Dec, 2017 Seborrheic keratoses L82.1 and Mood disorder F39 [facility] [address] [place], [place] [id number] 57 Jul, Attention deficit hyperactivity disorder (ADHD), predominantly inattentive type F90.0 [facility] [address] [place], [place] [id number] 57 Jul, Mood disorder F39 [facility] [address] [facility] [id number] [address] [place] [address] Sep, [facility] [address] [facility] [id number] [address] [place] [address] Aug, [facility] [address] [id number] [address] [place] [address] Jul, [facility] [address] [facility] [id number] [address] [place] [address] Jul, [facility] [address] [facility] [id number] [address] [place] [address] Jun, Attention deficit hyperactiv ity disorder (ADHD), combined type F90.2 [facility] [address] [facility] [id number] [address] [place] [address] May, [facility] [address] [facility] [id number] [address] [place] [address] Apr, Attention deficit hyperactiv ity disorder (ADHD), combined type F90.2 [facility] [address] [facility] [id number] [address] [place] [address] Mar, Acute non-recurrent maxillar y sinusitis J01.00 [facility] [address] [facility] [id number] [address] [place] [address] Mar, Acute non-recurrent maxillar y sinusitis J01.00 [facility] [address] [facility] [id number] [address] [place] [address] Mar, [facility] [address] [facility] [id number] [address] [place] [address] Feb, Gastroenteritis K52.9 [facility] [address] [facility] [id number] [address] [place] [address] Feb, [facility] [address] [facility] [id number] [address] [place] [address] Jan, [facility] [address] [facility] [id number] [address] [place] [address] December, [facility] [address] [facility] [id number] [address] [place] [address] December, Rash R21 [facility] [address] [facility] [id number] [address] [place] [address] Nov, [facility] [address] [facility] [id number] [address] [place] [address] Nov, [facility] [address] [facility] [id number] [address] [place] [address] Oct, [facility] [address] [facility] [id number] [address] [place] [address] Oct, Attention deficit hyperactiv ity disorder (ADHD), combined type F90.2 [facility] [address] [facility] [id number] [address] [place] [address] Sep, [facility] [address] [facility] [id number] [address] [place] [address] Sep, Viral syndrome B34.9 and HSV (herpes simplex virus) infection B00.9 [facility] [address] [facility] [id number] [address] [place] [address] Aug, [facility] [address] [facility] [id number] [address] [place] [address] Aug, [facility] [address] [facility] [id number] [address] [place] [address] Jul, [facility] [address] [facility] [id number] [address] [place] [address] Jun, Gastroenteritis K52.9 [facility] [address] [facility] [id number] [address] [place] [address] Jun, [facility] [address] [facility] [id number] [address] [place] [address] Jun, Attention deficit hyperactiv ity disorder (ADHD), combined type F90.2 [facility] [address] [facility] [id number] [address] [place] [address] Jun, [facility] [address] 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 [id number] [address] [place] [address] May, [facility] [address] [facility] [id number] [address] [place] [address] Apr, [facility] [address] [facility] [id number] [address] [place] [address] Mar, [facility] [address] [facility] [id number] [address] [place] [address] Feb, [facility] [address] [facility] [id number] [address] [place] [address] Jan, Poison janneth 692.6 [facility] [address] [facility] [id number] [address] [place] [address] Jan, Attention deficit disorder ( ADD) 314.00 [facility] [address] [facility] [id number] [address] [place] [address] Jan, [facility] [address] [facility] [id number] [address] [place] [address] Jan, Poison janneth dermatitis 692.6 [facility] [address] [facility] [id number] [address] [place] [address] December, [facility] [address] [facility] [id number] [address] [place] [address] Nov, [facility] [address] [facility] [id number] [address] [place] [address] 13 Nov, 2014 [facility] [address] [id number] [address] [place] [address], [place] [address] 13 Oct, 2014 [facility] [address] [id number] [address] [place] [address], [place] [address] Oct, [facility] [address] [id number] [address] [place] [address], [place] [address] Oct, [facility] [address] [id number] [address] [place] [address], [place] [address] Oct, [facility] [address] [id number] [address] [place] [address], [place] [address] Oct, [facility] [address] [id number] [address] [place] [address], [place] [address] Oct, [facility] [address] [id number] [address] [place] [address], [place] [address] Oct, [facility] [address] [id number] [address] [place] [address], [place] [address] Oct, [facility] [address] [id number] [address] [place] [address], [place] [address] Sep, [facility] [address] [id number] [address] [place] [address], [place] [address] Sep, [facility] [address] [id number] [address] [place] [address], [place] [address] Aug, [facility] [address] [id number] [address] [place] [address], [place] [address] Aug, [facility] [address] [id number] [address] [place] [address], [place] [address] Aug, [facility] [address] [id number] [address] [place] [address], [place] [address] Aug, [facility] [address] [id number] [address] [place] [address], [place] [address] Aug, [facility] [address] [id number] [address] [place] [address], [place] [address] Aug, [facility] [address] [id number] [address] [place] [address], [place] [address] Jul, [facility] [address] [id number] [address] [place] [address], [place] [address] Jul, [facility] [address] [id number] [address] [place] [address], [place] [address] Jun, [facility] [address] [id number] [address] [place] [address], [place] [address] Jun, [facility] [address] [id number] [address] [place] [address], [place] [address] Jun, [facility] [address] [id number] [address] [place] [address], [place] [address] Jun, [facility] [address] [id number] [address] [place] [address], [place] [address] May, [facility] [address] [id number] [address] [place] [address], [place] [address] May, [facility] [address] [id number] [address] [place] [address], [place] [address] Apr, [facility] [address] [id number] [address] [place] [address], [place] [address] Apr, [facility] [address] [id number] [address] [place] [address], [place] [address] Mar, [facility] [address] [id number] [address] [place] [address], [place] [address] Mar, [facility] [address] [id number] [address] [place] [address], [place] [address] Feb, [facility] [address] [id number] [address] [place] [address], [place] [address] Feb, [facility] [address] [id number] [address] [place] [address], [place] [address] Feb, [facility] [address] [id number] [address] [place] [address], [place] [address] Feb, [facility] [address] [id number] [address] [place] [address], [place] [address] Jan, [facility] [address] [id number] [address] [place] [address], [place] [address] Jan, [facility] [address] [id number] [address] [place] [address], [place] [address] Jan, [facility] [address] [id number] [address] [place] [address], [place] [address] Jan, [facility] [address] [id number] [address] [place] [address], [place] [address] December, [facility] [address] [id number] [address] [place] [address], [place] [address] December, [facility] [address] [id number] [address] [place] [address], [place] [address] December, [facility] [address] [id number] [address] [place] [address], [place] [address] December, [facility] [address] [id number] [address] [place] [address], [place] [address] Nov, [facility] [address] [id number] [address] [place] [address], [place] [address] Nov, [facility] [address] [id number] [address] [place] [address], [place] [address] Oct, [facility] [address] [id number] [address] [place] [address], [place] [address] Oct, [facility] [address] [id number] [address] [place] [address], [place] [address] Sep, [facility] [address] [id number] [address] [place] [address], [place] [address] Sep, [facility] [address] [id number] [address] [place] [address], [place] [address] Aug, [facility] [address] [id number] [address] [place] [address], [place] [address] Aug, [facility] [address] [id number] [address] [place] [address], [place] [address] Jul, [facility] [address] [id number] [address] [place] [address], [place] [address] Jul, [facility] [address] [id number] [address] [place] [address], [place] [address] Jun, [facility] [address] [id number] [address] [place] [address], [place] [address] Jun, [facility] [address] [id number] [address] [place] [address], [place] [address] Jun, [facility] [address] [id number] [address] [place] [address], [place] [address] Jun, [facility] [address] [id number] [address] [place] [address], [place] [address] May, [facility] [address] [id number] [address] [place] [address], [place] [address] May, [facility] [address] [id number] [address] [place] [address], [place] [address] May, [facility] [address] [id number] [address] [place] [address], [place] [address] 30 Apr, 2013 [facility] [address] [id number] [address] [place] [address], [place] [address] Mar, [facility] [address] [id number] [address] [place] [address], [place] [address] Mar, [facility] [address] [id number] [address] [place] [address], [place] [address] Mar, [facility] [address] [id number] [address] [place] [address], [place] [address] Mar, [facility] [address] [id number] [address] [place] [address], [place] [address] Feb, [facility] [address] [id number] [address] [place] [address], [place] [address] Feb, [facility] [address] [id number] [address] [place] [address], [place] [address] Feb, [facility] [address] [id number] [address] [place] [address], [place] [address] Jan, [facility] [address] [id number] [address] [place] [address], [place] [address] Jan, [facility] [address] [id number] [address] [place] [address], [place] [address] December, [facility] [address] [id number] [address] [place] [address], [place] [address] Nov, [facility] [address] [id number] [address] [place] [address], [place] [address] Nov, [facility] [address] [id number] [address] [place] [address], [place] [address] Oct, [facility] [address] [id number] [address] [place] [address], [place] [address] Oct, [facility] [address] [id number] [address] [place] [address], [place] [address] Oct, [facility] [address] [id number] [address] [place] [address], [place] [address] Sep, [facility] [address] [id number] [address] [place] [address], [place] [address] Sep, [facility] [address] [id number] [address] [place] [address], [place] [address] Aug, [facility] [address] [id number] [address] [place] [address], [place] [address] Jun, [facility] [address] [id number] [address] [place] [address], [place] [address] 30 Jun, 2012 [facility] [address] [id number] [address] [place] [address], [place] [address] Jun, [facility] [address] [id number] [address] [place] [address], [place] [address] Jun, [facility] [address] [id number] [address] [place] [address], [place] [address] Jun, [facility] [address] [id number] [address] [place] [address], [place] [address] Jun, [facility] [address] [id number] [address] [place] [address], [place] [address] Jun, [facility] [address] [id number] [address] [place] [address], [place] [address] Jun, [facility] [address] [id number] [address] [place] [address], [place] [address] May, [facility] [address] [id number] [address] [place] [address], [place] [address] May, [facility] [address] [id number] [address] [place] [address], [place] [address] May, [facility] [address] [id number] [address] [place] [address], [place] [address] May, [facility] [address] [id number] [address] [place] [address], [place] [address] May, [facility] [address] [address] [id number] [address] [place] [address], [place] [address] May, [facility] [address] [id number] [address] [place] [address], [place] [id number] 08 Apr, 2012 [facility] [address] [id number] [address] [place] [address], [place] [address] 06 Apr, 2012 [facility] [address] [id number] [address] [place] [address], [place] [address] Mar, [facility] [address] [id number] [address] [place] [address], [place] [address] Feb, [facility] [address] [id number] [address] [place] [address], [place] [address] Jan, [facility] [address] [id number] [address] [place] [address], [place] [address] December, [facility] [address] [id number] [address] [place] [address], [place] [address] Nov, [facility] [address] [id number] [address] [place] [address], [place] [address] Oct, [facility] [address] [id number] [address] [place] [address], [place] [address] Oct, [facility] [address] [id number] [address] [place] [address], [place] [address] Aug, [facility] [address] [id number] [address] [place] [address], [place] [address] Jul, [facility] [address] [id number] [address] [place] [address], [place] [address] Jun, [facility] [address] [id number] [address] [place] [address], [place] [address] 14 Jun, 2011 [facility] [address] [id number] [address] [place] [address], [place] [address] May, [facility] [address] [id number] [address] [place] [address], [place] [address] May, [facility] [address] [id number] [address] [place] [address], [place] [address] Aug, [facility] [address] [id number] [address] [place] [address], [place] [address] 29 Jul, 2010 [facility] [address] [id number] [address] [place] [address], [place] [address] Jul, [facility] [address] [id number] [address] [place] [address], [place] [address] 17 Jun, 2010 [facility] [address] [id number] [address] [place] [id number] 17 Jun, 2010 [facility] [address] [id number] [address] [place] [id number] Jun, [facility] [address] [facility] [id number] [address] [place] [id number] Jun, [facility] [address] [id number] [address] [place] [id number] Jun, [facility] [address] [id number] [address] [place] [id number] May, [facility] [address] [id number] [address] [place] [address] May, [facility] [address] [facility] [id number] [address] [place] [id number] May, IMMUNIZATIONS No Known Immunizations SOCIAL HISTORY [...]
--- OUTSIDE RECORDS SUMMARY | 2020-02-16 14:11 | XMS REPORT ---
Author Author Andrew REES Organization [facility] Address [address] [place] [address] Care Team Providers Care Field Operations Manager Name Role Phone NEGRITA FAVIAN Unavailable PROBLEMS Type Condition ICD9-CM Code AMC36-MQ Code Onset Dates Condition S tatus SNOMED Code Problem Attention deficit hyperactivity disorder (ADHD), combi david type F90.2 Active 929286386 Problem Gastroesophageal reflux disease, esophagitis pre sence not specified K21.9 Active 309537661 Problem Gastroesophageal reflux disease, esophagitis pre sence not specified K21.9 Active 751343906 Problem Mood disorder F39 Active 189649 05 Problem Attention deficit hyperactiv ity disorder (ADHD), predominantly inattentive type F90.0 Active 70292993 Problem Adjustment disorder with anxiety F43.22 Active 18358118 Problem Generalized anxiety disorder F41.1 A ctive [id number] ALLERGIES No Information ENCOUNTERS Encounter Location Date Diagnosis [facility] [address] [id number] [address] [place] [address] December, [facility] [address] [id number] [address] [place] [address] Nov, [facility] [address] [id number] [address] [place] [address] Nov, Fever R50.9 and Viral URI wi th cough J06.9 [facility] [address] [facility] [id number] [address] [place] [address] Nov, [facility] [address] [id number] [address] [place] [address] Oct, Flu-like symptoms R68.89 [facility] [address] [id number] [address] [place] [address] Oct, Mood disorder F39 [facility] [address] [id number] [id number] Oct, [facility] [address] [place] [id number] [place] [address] Oct, [facility] [address] [facility] [id number] [address] [place] [address] Sep, Laceration of right index fi nger without foreign body without damage to nail, initial encounter S61.210A [facility] [address] [facility] [id number] [address] [place] [address] Aug, [facility] [address] [facility] [id number] [address] [place] [address] Aug, [facility] [address] [facility] [id number] [address] [place] [address] Jul, Laceration of left index fin guerline without foreign body without damage to nail, initial encounter S61.211A and Encounter for immunization Z23 [facility] [address] [facility] [id number] [address] [place] [address] Jul, Abnormal LFTs R94.5 [place] [address] [facility] [id number] [address] [place] [address] Jul, Abnormal LFTs R94.5 [place] [address] [facility] [id number] [address] [place] [address] Jul, Gastroesophageal reflux dise ase, esophagitis presence not specified K21.9 and Diarrhea, unspecified type R19.7 [facility] [address] [facility] [id number] [address] [place] [address] May, Bronchitis J40 [facility] [address] [facility] [id number] [address] [place] [address] May, Attention deficit hyperactiv ity disorder (ADHD), combined type F90.2 [facility] [address] [facility] [id number] [address] [place] [address] Apr, Adjustment disorder with anx iety F43.22 [place] [id number] [place] [address] Apr, Generalized anxiety disorder F41.1 and Attention deficit hyperactivity disorder (ADHD), combined type F90.2 [place] [id number] [place] [address] Mar, Generalized anxiety disorder F41.1 and Attention deficit hyperactivity disorder (ADHD), combined type F90.2 [place] [address] [address] Feb, Attention deficit hyperactiv ity disorder (ADHD), combined type F90.2 and Generalized anxiety disorder F41.1 [place] [address] [address] Feb, Adjustment disorder with anx iety F43.22 [place] [address] [address] Jan, Adjustment disorder with anx iety F43.22 [place] [address] [address] Aug, Blood in stool K92.1 and His tory of hemorrhoids Z87.19 [place] [id number] [place] [address] Jul, Attention deficit hyperactiv ity disorder (ADHD), combined type F90.2 [place] [address] [address] Jul, Attention deficit hyperactiv ity disorder (ADHD), combined type F90.2 and Adjustment disorder with anxiety F43.22 [address] [address] [address] Jun, Bloody stools K92.1 and Acut e bilateral low back pain without sciatica M54.5 [place] [id number] [place] [address] Jun, Attention deficit hyperactiv ity disorder (ADHD), combined type F90.2 [facility] [address] [id number] [address] [place] [address] May, Attention deficit hyperactiv ity disorder (ADHD), combined type F90.2 [facility] [address] [id number] [address] [place] [address] 10 Apr, 2018 Attention deficit hyperactiv ity disorder (ADHD), combined type F90.2 [facility] [address] [id number] [address] [place] [address] Mar, Attention deficit hyperactiv ity disorder (ADHD), combined type F90.2 [facility] [address] [id number] [address] [place] [address] Mar, Attention deficit hyperactiv ity disorder (ADHD), combined type F90.2 [facility] [id number] [place] [address] Mar, Attention deficit hyperactiv ity disorder (ADHD), combined type F90.2 and High risk medication use Z79.899 [facility] [address] [address] Mar, Gastroenteritis K52.9 [facility] [id number] [place] [address] Feb, Attention deficit hyperactiv ity disorder (ADHD), combined type F90.2 [facility] [address] [id number] [address] [place] [id number] 05 Jan, 2018 Attention deficit hyperactiv ity disorder (ADHD), combined type F90.2 and High risk medication use Z79.899 [address] [place], [place] [id number] 13 Sep, 2017 Acute cystitis without hematuria N30.00 and Acute suppurative otitis media of left ear with spontaneous rupture of tympanic membrane, recurrence not specified H66.012 [address] [place], [place] [id number] 19 Dec, 2017 Seborrheic keratoses L82.1 and Mood disorder F39 [facility] [address] [place], [place] [id number] Jul, Attention deficit hyperactivity disorder (ADHD), predominantly inattentive type F90.0 [facility] [address] [place], [place] [id number] Jul, Mood disorder F39 [facility] [address] [facility] [id number] [address] [place] [address] Sep, [facility] [address] [facility] [id number] [address] [place] [address] Aug, [facility] [address] [id number] [address] [place] [address] Jul, [facility] [address] [facility] [id number] [address] [place] [address] Jul, [facility] [address] [facility] [id number] [address] [place] [address] Jun, Attention deficit hyperactiv ity disorder (ADHD), combined type F90.2 [facility] [address] [facility] [id number] [address] [place] [address] May, [facility] [address] [facility] [id number] [address] [place] [address] Apr, Attention deficit hyperactiv ity disorder (ADHD), combined type F90.2 [facility] [address] [facility] [id number] [address] [place] [address] Mar, Acute non-recurrent maxillar y sinusitis J01.00 [facility] [address] [facility] [id number] [address] [place] [address] Mar, Acute non-recurrent maxillar y sinusitis J01.00 [facility] [address] [facility] [id number] [address] [place] [address] Mar, [facility] [address] [facility] [id number] [address] [place] [address] Feb, Gastroenteritis K52.9 [facility] [address] [facility] [id number] [address] [place] [address] Feb, [facility] [address] [facility] [id number] [address] [place] [address] Jan, [facility] [address] [facility] [id number] [address] [place] [address] December, [facility] [address] [facility] [id number] [address] [place] [address] December, Rash R21 [facility] [address] [facility] [id number] [address] [place] [address] Nov, [facility] [address] [facility] [id number] [address] [place] [address] Nov, [facility] [address] [facility] [id number] [address] [place] [address] Oct, [facility] [address] [facility] [id number] [address] [place] [address] Oct, Attention deficit hyperactiv ity disorder (ADHD), combined type F90.2 [facility] [address] [facility] [id number] [address] [place] [address] Sep, [facility] [address] [facility] [id number] [address] [place] [address] Sep, Viral syndrome B34.9 and HSV (herpes simplex virus) infection B00.9 [facility] [address] [facility] [id number] [address] [place] [address] Aug, [facility] [address] [facility] [id number] [address] [place] [address] Aug, [facility] [address] [facility] [id number] [address] [place] [address] Jul, [facility] [address] [facility] [id number] [address] [place] [address] Jun, Gastroenteritis K52.9 [facility] [address] [facility] [id number] [address] [place] [address] Jun, [facility] [address] [facility] [id number] [address] [place] [address] Jun, Attention deficit hyperactiv ity disorder (ADHD), combined type F90.2 [facility] [address] [facility] [id number] [address] [place] [address] Jun, [facility] [address] [facility] [id number] [address] [place] [address] May, 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 [facility] [address] [facility] [id number] [address] [place] [address] May, [facility] [address] [facility] [id number] [address] [place] [address] Apr, [facility] [address] [facility] [id number] [address] [place] [address] Mar, [facility] [address] [facility] [id number] [address] [place] [address] Feb, [facility] [address] [facility] [id number] [address] [place] [address] Jan, Poison janneth 692.6 [facility] [address] [facility] [id number] [address] [place] [address] Jan, Attention deficit disorder ( ADD) 314.00 [facility] [address] [facility] [id number] [address] [place] [address] Jan, [facility] [address] [facility] [id number] [address] [place] [address] Jan, Poison janneth dermatitis 692.6 [facility] [address] [facility] [id number] [address] [place] [address] December, [facility] [address] [facility] [id number] [address] [place] [address] Nov, [facility] [address] [facility] [id number] [address] [place] [address] 13 Nov, 2014 [facility] [address] [id number] [address] [place] [address], [place] [address] 13 Oct, 2014 [facility] [address] [id number] [address] [place] [address], [place] [address] Oct, [facility] [address] [id number] [address] [place] [address], [place] [address] Oct, [facility] [address] [id number] [address] [place] [address], [place] [address] Oct, [facility] [address] [id number] [address] [place] [address], [place] [address] Oct, [facility] [address] [id number] [address] [place] [address], [place] [address] Oct, [facility] [address] [id number] [address] [place] [address], [place] [address] Oct, [facility] [address] [id number] [address] [place] [address], [place] [address] Oct, [facility] [address] [id number] [address] [place] [address], [place] [address] Sep, [facility] [address] [id number] [address] [place] [address], [place] [address] Sep, [facility] [address] [id number] [address] [place] [address], [place] [address] Aug, [facility] [address] [id number] [address] [place] [address], [place] [address] Aug, [facility] [address] [id number] [address] [place] [address], [place] [address] Aug, [facility] [address] [id number] [address] [place] [address], [place] [address] Aug, [facility] [address] [id number] [address] [place] [address], [place] [address] Aug, [facility] [address] [id number] [address] [place] [address], [place] [address] Aug, [facility] [address] [id number] [address] [place] [address], [place] [address] Jul, [facility] [address] [id number] [address] [place] [address], [place] [address] Jul, [facility] [address] [id number] [address] [place] [address], [place] [address] Jun, [facility] [address] [id number] [address] [place] [address], [place] [address] Jun, [facility] [address] [id number] [address] [place] [address], [place] [address] Jun, [facility] [address] [id number] [address] [place] [address], [place] [address] Jun, [facility] [address] [id number] [address] [place] [address], [place] [address] May, [facility] [address] [id number] [address] [place] [address], [place] [address] May, [facility] [address] [id number] [address] [place] [address], [place] [address] Apr, [facility] [address] [id number] [address] [place] [address], [place] [address] Apr, [facility] [address] [id number] [address] [place] [address], [place] [address] Mar, [facility] [address] [id number] [address] [place] [address], [place] [address] Mar, [facility] [address] [id number] [address] [place] [address], [place] [address] Feb, [facility] [address] [id number] [address] [place] [address], [place] [address] Feb, [facility] [address] [id number] [address] [place] [address], [place] [address] Feb, [facility] [address] [id number] [address] [place] [address], [place] [address] Feb, [facility] [address] [id number] [address] [place] [address], [place] [address] Jan, [facility] [address] [id number] [address] [place] [address], [place] [address] Jan, [facility] [address] [id number] [address] [place] [address], [place] [address] Jan, [facility] [address] [id number] [address] [place] [address], [place] [address] Jan, [facility] [address] [id number] [address] [place] [address], [place] [address] December, [facility] [address] [id number] [address] [place] [address], [place] [address] December, [facility] [address] [id number] [address] [place] [address], [place] [address] December, [facility] [address] [id number] [address] [place] [address], [place] [address] December, [facility] [address] [id number] [address] [place] [address], [place] [address] Nov, [facility] [address] [id number] [address] [place] [address], [place] [address] Nov, [facility] [address] [id number] [address] [place] [address], [place] [address] Oct, [facility] [address] [id number] [address] [place] [address], [place] [address] Oct, [facility] [address] [id number] [address] [place] [address], [place] [address] Sep, [facility] [address] [id number] [address] [place] [address], [place] [address] Sep, [facility] [address] [id number] [address] [place] [address], [place] [address] Aug, [facility] [address] [id number] [address] [place] [address], [place] [address] Aug, [facility] [address] [id number] [address] [place] [address], [place] [address] Jul, [facility] [address] [id number] [address] [place] [address], [place] [address] Jul, [facility] [address] [id number] [address] [place] [address], [place] [address] Jun, [facility] [address] [id number] [address] [place] [address], [place] [address] Jun, [facility] [address] [id number] [address] [place] [address], [place] [address] Jun, [facility] [address] [id number] [address] [place] [address], [place] [address] Jun, [facility] [address] [id number] [address] [place] [address], [place] [address] May, [facility] [address] [id number] [address] [place] [address], [place] [address] May, [facility] [address] [id number] [address] [place] [address], [place] [address] May, [facility] [address] [id number] [address] [place] [address], [place] [address] 30 Apr, 2013 [facility] [address] [id number] [address] [place] [address], [place] [address] Mar, [facility] [address] [id number] [address] [place] [address], [place] [address] Mar, [facility] [address] [id number] [address] [place] [address], [place] [address] Mar, [facility] [address] [id number] [address] [place] [address], [place] [address] Mar, [facility] [address] [id number] [address] [place] [address], [place] [address] Feb, [facility] [address] [id number] [address] [place] [address], [place] [address] Feb, [facility] [address] [id number] [address] [place] [address], [place] [address] Feb, [facility] [address] [id number] [address] [place] [address], [place] [address] Jan, [facility] [address] [id number] [address] [place] [address], [place] [address] Jan, [facility] [address] [id number] [address] [place] [address], [place] [address] December, [facility] [address] [id number] [address] [place] [address], [place] [address] Nov, [facility] [address] [id number] [address] [place] [address], [place] [address] Nov, [facility] [address] [id number] [address] [place] [address], [place] [address] Oct, [facility] [address] [id number] [address] [place] [address], [place] [address] Oct, [facility] [address] [id number] [address] [place] [address], [place] [address] Oct, [facility] [address] [id number] [address] [place] [address], [place] [address] Sep, [facility] [address] [id number] [address] [place] [address], [place] [address] Sep, [facility] [address] [id number] [address] [place] [address], [place] [address] Aug, [facility] [address] [id number] [address] [place] [address], [place] [address] Jun, [facility] [address] [id number] [address] [place] [address], [place] [address] 30 Jun, 2012 [facility] [address] [id number] [address] [place] [address], [place] [address] Jun, [facility] [address] [id number] [address] [place] [address], [place] [address] Jun, [facility] [address] [id number] [address] [place] [address], [place] [address] Jun, [facility] [address] [id number] [address] [place] [address], [place] [address] Jun, [facility] [address] [id number] [address] [place] [address], [place] [address] Jun, [facility] [address] [id number] [address] [place] [address], [place] [address] Jun, [facility] [address] [id number] [address] [place] [address], [place] [address] May, [facility] [address] [id number] [address] [place] [address], [place] [address] May, [facility] [address] [id number] [address] [place] [address], [place] [address] May, [facility] [address] [id number] [address] [place] [address], [place] [address] May, [facility] [address] [id number] [address] [place] [address], [place] [address] May, [facility] [address] [id number] [address] [place] [address], [place] [address] May, [facility] [address] [id number] [address] [place] [address], [place] [address] 08 Apr, 2012 [facility] [address] [id number] [address] [place] [address], [place] [address] 06 Apr, 2012 [facility] [address] [id number] [address] [place] [address], [place] [address] Mar, [facility] [address] [id number] [address] [place] [address], [place] [address] Feb, [facility] [address] [id number] [address] [place] [address], [place] [address] Jan, [facility] [address] [id number] [address] [place] [address], [place] [address] December, [facility] [address] [id number] [address] [place] [address], [place] [address] Nov, [facility] [address] [id number] [address] [place] [address], [place] [address] Oct, [facility] [address] [id number] [address] [place] [address], [place] [address] Oct, [facility] [address] [id number] [address] [place] [address], [place] [address] Aug, [facility] [address] [id number] [address] [place] [address], [place] [address] Jul, [facility] [address] [id number] [address] [place] [address], [place] [address] Jun, [facility] [address] [id number] [address] [place] [address], [place] [address] 14 Jun, 2011 [facility] [address] [id number] [address] [place] [address], [place] [address] May, [facility] [address] [id number] [address] [place] [address], [place] [address] May, [facility] [address] [id number] [address] [place] [address], [place] [address] Aug, [facility] [address] [id number] [address] [place] [address], [place] [address] 29 Jul, 2010 [facility] [address] [id number] [address] [place] [address], [place] [address] Jul, [facility] [address] [id number] [address] [place] [address], [place] [address] 17 Jun, 2010 [facility] [address] [id number] [address] [place] [address] 17 Jun, 2010 [facility] [address] [id number] [address] [place] [address] 11 Jun, 2010 [facility] [address] [id number] [address] [place] [address] 04 Jun, 2010 [facility] [address] [id number] [address] [place] [address] Jun, [facility] [address] [id number] [address] [place] [address] 18 May, 2010 [facility] [address] [id number] [address] [place] [id number] 15 May, 2010 [facility] [address] [id number] [address] [place] [address] May, IMMUNIZATIONS No Known Immunizations SOCIAL HISTORY Never Assessed REASON FOR VISIT PLAN OF CARE VITAL SIGNS Height 69 in 2014-09-07 Weight 206 lbs 2014-09-07 Temperature 97.6 degrees Fahrenheit 2014-09-07 Blood pressure systolic 130 mmHg 2014-09-07 Blood pressure diastolic 78 mmHg 2014-09-07 MEDICATIONS Unknown Medications RESULTS No Results PROCEDURES Procedure Date Ordered Result Body Site VISIT Sep 07, 2014 INSTRUCTIONS MEDICATIONS ADMINISTERED No Known Medications MEDICAL (GENERAL) HISTORY Type Description Date Medical History attention deficit hyperactivity disorder Medical History Mood disorder Surgical History No Surgical history information Hospitalization History [facility] Pneum[facility] 04/2016
--- OUTSIDE RECORDS SUMMARY | 2020-02-16 14:11 | XMS REPORT ---
Author Author Andrew REES Organization [facility] Address [address] [place] [address] Care Team Providers Care Floor Press Operator Name Role Phone NEGRITA FAVIAN Unavailable PROBLEMS Type Condition ICD9-CM Code [id number] Code Onset Dates Condition S tatus SNOMED Code Problem Attention deficit hyperactivity disorder (ADHD), combi david type F90.2 Active 785183216 Problem Gastroesophageal reflux disease, esophagitis pre sence not specified K21.9 Active 488862224 Problem Gastroesophageal reflux disease, esophagitis pre sence not specified K21.9 Active 465460023 Problem Mood disorder F39 Active 152376 05 Problem Attention deficit hyperactiv ity disorder (ADHD), predominantly inattentive type F90.0 Active 82298431 Problem Adjustment disorder with anxiety F43.22 Active 60152784 Problem Generalized anxiety disorder F41.1 A ctive [id number] ALLERGIES No Information ENCOUNTERS Encounter Location Date Diagnosis [facility] [address] [id number] [place] [phone] December, [facility] [address] [id number] [address] [place] [phone] Nov, [facility] [address] [id number] [address] [place] [phone] Nov, Fever R50.9 and Viral URI wi th cough J06.9 [facility] [address] [facility] [id number] [address] [place] [phone] Nov, [facility] [address] [id number] [address] [place] [phone] Oct, Flu-like symptoms R68.89 [facility] [address] [id number] [address] [place] [phone] Oct, Mood disorder F39 [facility] [id number] [place] [id number] Oct, [facility] [place] [address] [id number] [place] [address] Oct, [facility] [address] [facility] [id number] [address] [place] [phone] Sep, Laceration of right index fi nger without foreign body without damage to nail, initial encounter S61.210A [facility] [address] [facility] [id number] [address] [place] [phone] Aug, [facility] [address] [facility] [id number] [address] [place] [phone] Aug, [facility] [address] [facility] [id number] [address] [place] [phone] Jul, Laceration of left index fin guerline without foreign body without damage to nail, initial encounter S61.211A and Encounter for immunization Z23 [facility] [address] [facility] [id number] [address] [place] [phone] Jul, Abnormal LFTs R94.5 [address] [facility] [id number] [address] [place] [phone] Jul, Abnormal LFTs R94.5 [place] [address] [address] [facility] [id number] [address] [place] [phone] Jul, Gastroesophageal reflux dise ase, esophagitis presence not specified K21.9 and Diarrhea, unspecified type R19.7 [facility] [address] [facility] [id number] [address] [place] [phone] May, Bronchitis J40 [facility] [address] [facility] [id number] [address] [place] [phone] May, Attention deficit hyperactiv ity disorder (ADHD), combined type F90.2 [facility] [address] [facility] [id number] [address] [place] [phone] Apr, Adjustment disorder with anx iety F43.22 [address] [place] [id number] [place] [phone] Apr, Generalized anxiety disorder F41.1 and Attention deficit hyperactivity disorder (ADHD), combined type F90.2 [place] [id number] [place] [phone] Mar, Generalized anxiety disorder F41.1 and Attention deficit hyperactivity disorder (ADHD), combined type F90.2 [address] [address] [phone] Feb, Attention deficit hyperactiv ity disorder (ADHD), combined type F90.2 and Generalized anxiety disorder F41.1 [address] [phone] Feb, Adjustment disorder with anx iety F43.22 [address] [address] Jan, Adjustment disorder with anx iety F43.22 [address] [address] Aug, Blood in stool K92.1 and His tory of hemorrhoids Z87.19 [place] [id number] [place] [phone] Jul, Attention deficit hyperactiv ity disorder (ADHD), combined type F90.2 [address] [address] [address] Jul, Attention deficit hyperactiv ity disorder (ADHD), combined type F90.2 and Adjustment disorder with anxiety F43.22 [address] [phone] Jun, Bloody stools K92.1 and Acut e bilateral low back pain without sciatica M54.5 [place] [id number] [place] [phone] Jun, Attention deficit hyperactiv ity disorder (ADHD), combined type F90.2 [facility] [address] [id number] [address] [place] [phone] May, Attention deficit hyperactiv ity disorder (ADHD), combined type F90.2 [facility] [address] [id number] [address] [place] [phone] 10 Apr, 2018 Attention deficit hyperactiv ity disorder (ADHD), combined type F90.2 [facility] [address] [id number] [address] [place] [phone] Mar, Attention deficit hyperactiv ity disorder (ADHD), combined type F90.2 [facility] [address] [id number] [address] [place] [phone] Mar, Attention deficit hyperactiv ity disorder (ADHD), combined type F90.2 [facility] [id number] [place] [phone] Mar, Attention deficit hyperactiv ity disorder (ADHD), combined type F90.2 and High risk medication use Z79.899 [facility] [address] [address] Mar, Gastroenteritis K52.9 [facility] [id number] [place] [phone] Feb, Attention deficit hyperactiv ity disorder (ADHD), combined type F90.2 [facility] [address] [id number] [address] [place] [phone] 05 Jan, 2018 Attention deficit hyperactiv ity disorder (ADHD), combined type F90.2 and High risk medication use Z79.899 [address] [place] [id number] 13 Sep, 2017 Acute cystitis without hematuria N30.00 and Acute suppurative otitis media of left ear with spontaneous rupture of tympanic membrane, recurrence not specified H66.012 [address] [place], [place] [id number] 19 Dec, 2017 Seborrheic keratoses L82.1 and Mood disorder F39 [facility] [address] [place], [place] [id number] Jul, Attention deficit hyperactivity disorder (ADHD), predominantly inattentive type F90.0 [facility] [address] [place], [place] [id number] Jul, Mood disorder F39 [facility] [address] [facility] [id number] [address] [place] [phone] Sep, [facility] [address] [facility] [id number] [address] [place] [phone] Aug, [facility] [address] [id number] [address] [place] [phone] Jul, [facility] [address] [facility] [id number] [address] [place] [phone] Jul, [facility] [address] [facility] [id number] [address] [place] [phone] Jun, Attention deficit hyperactiv ity disorder (ADHD), combined type F90.2 [facility] [address] [facility] [id number] [address] [place] [phone] May, [facility] [address] [facility] [id number] [address] [place] [phone] Apr, Attention deficit hyperactiv ity disorder (ADHD), combined type F90.2 [facility] [address] [facility] [id number] [address] [place] [phone] Mar, Acute non-recurrent maxillar y sinusitis J01.00 [facility] [address] [facility] [id number] [address] [place] [phone] Mar, Acute non-recurrent maxillar y sinusitis J01.00 [facility] [address] [facility] [id number] [address] [place] [phone] Mar, [facility] [address] [facility] [id number] [address] [place] [phone] Feb, Gastroenteritis K52.9 [facility] [address] [facility] [id number] [address] [place] [phone] Feb, [facility] [address] [facility] [id number] [address] [place] [phone] Jan, [facility] [address] [facility] [id number] [address] [place] [phone] December, [facility] [address] [facility] [id number] [address] [place] [phone] December, Rash R21 [facility] [address] [facility] [id number] [address] [place] [phone] Nov, [facility] [address] [facility] [id number] [address] [place] [phone] Nov, [facility] [address] [facility] [id number] [address] [place] [phone] Oct, [facility] [address] [facility] [id number] [address] [place] [phone] Oct, Attention deficit hyperactiv ity disorder (ADHD), combined type F90.2 [facility] [address] [facility] [id number] [address] [place] [phone] Sep, [facility] [address] [facility] [id number] [address] [place] [phone] Sep, Viral syndrome B34.9 and HSV (herpes simplex virus) infection B00.9 [facility] [address] [facility] [id number] [address] [place] [id number] Aug, [facility] [address] [facility] [id number] [address] [place] [phone] Aug, [facility] [address] [facility] [id number] [address] [place] [phone] Jul, [facility] [address] [facility] [id number] [address] [place] [phone] Jun, Gastroenteritis K52.9 [facility] [address] [facility] [id number] [address] [place] [id number] Jun, [facility] [address] [facility] [id number] [address] [place] [phone] Jun, Attention deficit hyperactiv ity disorder (ADHD), combined type F90.2 [facility] [address] [facility] [id number] [address] [place] [phone] Jun, [facility] [address] [facility] [id number] [address] [place] [phone] May, 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 [facility] [address] [facility] [id number] [address] [place] [phone] May, [facility] [address] [facility] [id number] [address] [place] [phone] Apr, [facility] [address] [facility] [id number] [address] [place] [phone] Mar, [facility] [address] [facility] [id number] [address] [place] [phone] Feb, [facility] [address] [facility] [id number] [address] [place] [phone] Jan, Poison janneth 692.6 [facility] [address] [facility] [id number] [address] [place] [phone] Jan, Attention deficit disorder ( ADD) 314.00 [facility] [address] [facility] [id number] [address] [place] [phone] Jan, [facility] [address] [facility] [id number] [address] [place] [phone] Jan, Poison janneth dermatitis 692.6 [facility] [address] [facility] [id number] [address] [place] [phone] December, [facility] [address] [facility] [id number] [address] [place] [phone] Nov, [facility] [address] [facility] [id number] [address] [place] [phone] 13 Nov, 2014 [facility] [address] [id number] [address] [place] [address], [place] [id number] 13 Oct, 2014 [facility] [address] [id number] [address] [place] [address], [place] [id number] Oct, [facility] [address] [id number] [address] [place] [address], [place] [address] Oct, [facility] [address] [id number] [address] [place] [address], [place] [id number] Oct, [facility] [address] [id number] [address] [place] [address], [place] [address] Oct, [facility] [address] [id number] [address] [place] [address], [place] [address] Oct, [facility] [address] [id number] [address] [place] [address], [place] [address] Oct, [facility] [address] [id number] [address] [place] [address], [place] [address] Oct, [facility] [address] [id number] [address] [place] [address], [place] [address] Sep, [facility] [address] [id number] [address] [place] [address], [place] [address] Sep, [facility] [address] [id number] [address] [place] [address], [place] [address] Aug, [facility] [address] [id number] [address] [place] [address], [place] [address] Aug, [facility] [address] [id number] [address] [place] [address], [place] [address] Aug, [facility] [address] [id number] [address] [place] [address], [place] [address] Aug, [facility] [address] [id number] [address] [place] [address], [place] [address] Aug, [facility] [address] [id number] [address] [place] [address], [place] [address] Aug, [facility] [address] [id number] [address] [place] [address], [place] [address] Jul, [facility] [address] [id number] [address] [place] [address], [place] [address] Jul, [facility] [address] [id number] [address] [place] [address], [place] [address] Jun, [facility] [address] [id number] [address] [place] [address], [place] [address] Jun, [facility] [address] [id number] [address] [place] [address], [place] [address] Jun, [facility] [address] [id number] [address] [place] [address], [place] [address] Jun, [facility] [address] [id number] [address] [place] [address], [place] [address] May, [facility] [address] [id number] [address] [place] [address], [place] [address] May, [facility] [address] [id number] [address] [place] [address], [place] [address] Apr, [facility] [address] [id number] [address] [place] [address], [place] [address] Apr, [facility] [address] [id number] [address] [place] [address], [place] [address] Mar, [facility] [address] [id number] [address] [place] [address], [place] [address] Mar, [facility] [address] [id number] [address] [place] [address], [place] [address] Feb, [facility] [address] [id number] [address] [place] [address], [place] [address] Feb, [facility] [address] [id number] [address] [place] [address], [place] [address] Feb, [facility] [address] [id number] [address] [place] [address], [place] [address] Feb, [facility] [address] [id number] [address] [place] [address], [place] [address] Jan, [facility] [address] [id number] [address] [place] [address], [place] [address] Jan, [facility] [address] [id number] [address] [place] [address], [place] [address] Jan, [facility] [address] [id number] [address] [place] [address], [place] [address] Jan, [facility] [address] [id number] [address] [place] [address], [place] [address] December, [facility] [address] [id number] [address] [place] [address], [place] [address] December, [facility] [address] [id number] [address] [place] [address], [place] [address] December, [facility] [address] [id number] [address] [place] [address], [place] [address] December, [facility] [address] [id number] [address] [place] [address], [place] [address] Nov, [facility] [address] [id number] [address] [place] [address], [place] [address] Nov, [facility] [address] [id number] [address] [place] [address], [place] [address] Oct, [facility] [address] [id number] [address] [place] [address], [place] [address] Oct, [facility] [address] [id number] [address] [place] [address], [place] [address] Sep, [facility] [address] [id number] [address] [place] [address], [place] [address] Sep, [facility] [address] [id number] [address] [place] [address], [place] [address] Aug, [facility] [address] [id number] [address] [place] [address], [place] [address] Aug, [facility] [address] [id number] [address] [place] [address], [place] [address] Jul, [facility] [address] [id number] [address] [place] [address], [place] [address] Jul, [facility] [address] [id number] [address] [place] [address], [place] [address] Jun, [facility] [address] [id number] [address] [place] [address], [place] [address] Jun, [facility] [address] [id number] [address] [place] [address], [place] [address] Jun, [facility] [address] [id number] [address] [place] [address], [place] [address] Jun, [facility] [address] [id number] [address] [place] [address], [place] [address] May, [facility] [address] [id number] [address] [place] [address], [place] [address] May, [facility] [address] [id number] [address] [place] [address], [place] [address] May, [facility] [address] [id number] [address] [place] [address], [place] [address] 30 Apr, 2013 [facility] [address] [id number] [address] [place] [address], [place] [address] Mar, [facility] [address] [id number] [address] [place] [address], [place] [address] Mar, [facility] [address] [id number] [address] [place] [address], [place] [address] Mar, [facility] [address] [id number] [address] [place] [address], [place] [address] Mar, [facility] [address] [id number] [address] [place] [address], [place] [address] Feb, [facility] [address] [id number] [address] [place] [address], [place] [address] Feb, [facility] [address] [id number] [address] [place] [address], [place] [address] Feb, [facility] [address] [id number] [address] [place] [address], [place] [address] Jan, [facility] [address] [id number] [address] [place] [address], [place] [address] Jan, [facility] [address] [id number] [address] [place] [address], [place] [address] December, [facility] [address] [id number] [address] [place] [address], [place] [address] Nov, [facility] [address] [id number] [address] [place] [address], [place] [address] Nov, [facility] [address] [id number] [address] [place] [address], [place] [address] Oct, [facility] [address] [id number] [address] [place] [address], [place] [address] Oct, [facility] [address] [id number] [address] [place] [address], [place] [address] Oct, [facility] [address] [id number] [address] [place] [address], [place] [address] Sep, [facility] [address] [id number] [address] [place] [address], [place] [address] Sep, [facility] [address] [id number] [address] [place] [address], [place] [address] Aug, [facility] [address] [id number] [address] [place] [address], [place] [address] Jun, [facility] [address] [id number] [address] [place] [address], [place] [address] 30 Jun, 2012 [facility] [address] [id number] [address] [place] [address], [place] [address] Jun, [facility] [address] [id number] [address] [place] [address], [place] [address] Jun, [facility] [address] [id number] [address] [place] [address], [place] [address] Jun, [facility] [address] [id number] [address] [place] [address], [place] [address] Jun, [facility] [address] [id number] [address] [place] [address], [place] [address] Jun, [facility] [address] [id number] [address] [place] [address], [place] [address] Jun, [facility] [address] [id number] [address] [place] [address], [place] [address] May, [facility] [address] [id number] [address] [place] [address], [place] [address] May, [facility] [address] [id number] [address] [place] [address], [place] [address] May, [facility] [address] [id number] [address] [place] [address], [place] [address] May, [facility] [address] [id number] [address] [place] [address], [place] [address] May, [facility] [address] [id number] [address] [place] [address], [place] [address] May, [facility] [address] [id number] [address] [place] [address], [place] [address] 08 Apr, 2012 [facility] [address] [id number] [address] [place] [address], [place] [address] 06 Apr, 2012 [facility] [address] [id number] [address] [place] [address], [place] [address] Mar, [facility] [address] [id number] [address] [place] [address], [place] [address] Feb, [facility] [address] [id number] [address] [place] [address], [place] [address] Jan, [facility] [address] [id number] [address] [place] [address], [place] [address] December, [facility] [address] [id number] [address] [place] [address], [place] [address] Nov, [facility] [address] [id number] [address] [place] [address], [place] [id number] Oct, [facility] [address] [id number] [address] [place] [address], [place] [address] Oct, [facility] [address] [id number] [address] [place] [address], [place] [address] Aug, [facility] [address] [id number] [address] [place] [address], [place] [address] Jul, [facility] [address] [id number] [address] [place] [address], [place] [address] Jun, [facility] [address] [id number] [address] [place] [address], [place] [address] 14 Jun, 2011 [facility] [address] [id number] [address] [place] [address], [place] [address] May, [facility] [address] [id number] [address] [place] [address], [place] [address] May, [facility] [address] [id number] [address] [place] [address], [place] [address] Aug, [facility] [address] [id number] [address] [place] [address], [place] [id number] 29 Jul, 2010 [facility] [address] [id number] [address] [place] [address], [place] [address] Jul, [facility] [address] [id number] [address] [place] [address], [place] [id number] 17 Jun, 2010 [facility] [address] [id number] [address] [place] [id number] 17 Jun, 2010 [facility] [address] [id number] [address] [place] [id number] Jun, [facility] [address] [facility] [id number] [address] [place] [id number] Jun, [facility] [address] [id number] [address] [place] [id number] Jun, [facility] [address] [id number] [address] [place] [id number] May, [facility] [address] [id number] [address] [place] [id number] May, [facility] [address] [facility] [id number] [address] [place] [id number] May, IMMUNIZATIONS No Known Immunizations SOCIAL HISTORY [...]
--- OUTSIDE RECORDS SUMMARY | 2020-02-16 14:11 | XMS REPORT ---
Author Author Andrew Garcia Doctor Organization [facility] Address Unknown Phone Unavailable Care Team Providers Care Award Clerk Name Role Phone Migration, Doctor Unavailable Unavailable PROBLEMS Type Condition ICD9-CM Code KMK23-II Code Onset Dates Condition S tatus SNOMED Code Problem Attention deficit hyperactivity disorder (ADHD), combi david type F90.2 Active 939879301 Problem Gastroesophageal reflux disease, esophagitis pre sence not specified K21.9 Active [id number] Problem Gastroesophageal reflux disease, esophagitis pre sence not specified K21.9 Active 602509612 Problem Mood disorder F39 Active 106423 05 Problem Attention deficit hyperactiv ity disorder (ADHD), predominantly inattentive type F90.0 Active 58575398 Problem Adjustment disorder with anxiety F43.22 Active 79541696 Problem Generalized anxiety disorder F41.1 A ctive [id number] ALLERGIES No Information ENCOUNTERS Encounter Location Date Diagnosis [facility], [place] [id number] [place] [address] December, [facility] [place] [id number] [place] [address] December, [facility] [place] [address] [id number] [address] [place] [address] Nov, Muscle cramps R25.2 ; Elevat ed CPK R74.8 ; Elevated LFTs R79.89 ; Elevated blood pressure reading R03.0 and Hyperglycemia R73.9 [facility] [place] [address] [facility] [id number] [address] [place] [address] Nov, [facility] [address] [facility] [id number] [address] [place] [address] Nov, Muscle cramps R25.2 [facility] [place] [address] [id number] [address] [place] [address] Nov, [facility] [address] [facility] [id number] [address] [place] [id number] 09 Nov, 2019 Fever R50.9 and Viral URI wi th cough J06.9 [place] [address] [address] [facility] [id number] [address] [place] [address] Nov, [facility] [address] [facility] [id number] [address] [place] [address] Oct, Flu-like symptoms R68.89 [facility] [place] [address] [facility] [id number] [address] [place] [address] Oct, Mood disorder F[address] [id number] [id number] Oct, [address] [id number] [address] Oct, [facility] [address] [facility] [id number] [address] [place] [address] Sep, Laceration of right index fi nger without foreign body without damage to nail, initial encounter S61.210A [place] [address] [facility] [id number] [address] Aug, [place] [address] [facility] [id number] [address] [place] [address] Aug, [facility] [address] [id number] [address] [place] [address] Jul, Laceration of left index fin guerline without foreign body without damage to nail, initial encounter S61.211A and Encounter for immunization Z23 [place] [address] [facility] [id number] [address] [place] [address] Jul, Abnormal LFTs R94.5 [place] [address] [facility] [id number] [address] [place] [address] Jul, Abnormal LFTs R94.5 [place] [address] [id number] [address] [place] [address] Jul, Gastroesophageal reflux dise ase, esophagitis presence not specified K21.9 and Diarrhea, unspecified type R19.7 [place] [address] [address] May, Bronchitis J40 [place] [address] [id number] [place] [address] May, Attention deficit hyperactiv ity disorder (ADHD), combined type F90.2 [address] [address] [address] Apr, Adjustment disorder with anx iety F43.22 [address] [address] [address] [address] Apr, Generalized anxiety disorder F41.1 and Attention deficit hyperactivity disorder (ADHD), combined type F90.2 [place] [address] [address] [address] Mar, Generalized anxiety disorder F41.1 and Attention deficit hyperactivity disorder (ADHD), combined type F90.2 [address] [address] [address] [address] Feb, Attention deficit hyperactiv ity disorder (ADHD), combined type F90.2 and Generalized anxiety disorder F41.1 [place] [address] [address] [address] Feb, Adjustment disorder with anx iety F43.22 [address] [address] [address] [address] Jan, Adjustment disorder with anx iety F43.22 [address] [address] [address] Aug, Blood in stool K92.1 and His tory of hemorrhoids Z87.19 [place] [id number] [place] [address] Jul, Attention deficit hyperactiv ity disorder (ADHD), combined type F90.2 [facility] [place] [address] [facility] [id number] [address] [place] [address] 19 Jul, 2018 Attention deficit hyperactiv ity disorder (ADHD), combined type F90.2 and Adjustment disorder with anxiety F43.22 [facility] [place] [address] [facility] [id number] [address] [place] [address] 26 Jun, 2018 Bloody stools K92.1 and Acut e bilateral low back pain without sciatica M54.5 [facility] [place] [address] [facility] [id number] [address] [place] [address] 08 Jun, 2018 Attention deficit hyperactiv ity disorder (ADHD), combined type F90.2 [facility] [place] [address] [id number] [address] [place] [address] 15 May, 2018 Attention deficit hyperactiv ity disorder (ADHD), combined type F90.2 [facility] [place] [address] [id number] [address] [place] [address] 10 Apr, 2018 Attention deficit hyperactiv ity disorder (ADHD), combined type F90.2 [facility] [place] [address] [id number] [address] [place] [id number] 27 Mar, 2018 Attention deficit hyperactiv ity disorder (ADHD), combined type F90.2 [facility] [place] [id number] [address] [place] [address] 14 Mar, 2018 Attention deficit hyperactiv ity disorder (ADHD), combined type F90.2 [facility] [place] [address] [id number] [address] [place] [address] 14 Mar, 2018 Attention deficit hyperactiv ity disorder (ADHD), combined type F90.2 and High risk medication use Z79.899 [facility] [place] [id number] [address] [place] [address] 14 Mar, 2018 Gastroenteritis K52.9 [facility] [place] [id number] [place] [address] Feb, Attention deficit hyperactiv ity disorder (ADHD), combined type F90.2 [facility] [place] [address] [facility] [id number] [address] [place] [address] Jan, Attention deficit hyperactiv ity disorder (ADHD), combined type F90.2 and High risk medication use Z79.899 [address] [place], [place] [id number] 13 Sep, 2017 Acute cystitis without hematuria N30.00 and Acute suppurative otitis media of left ear with spontaneous rupture of tympanic membrane, recurrence not specified H66.012 [address] [place], [place] [id number] Jul, Seborrheic keratoses L82.1 and Mood disorder F39 [address] [id number] Jul, Attention deficit hyperactivity disorder (ADHD), predominantly inattentive type F90.[address] [id number] Jul, Mood disorder F39 [facility], [place] [address] [facility] [id number] [address] [place] [address] Sep, [facility], [place] [address] [id number] [address] [place] [address] Aug, [facility], [place] [address] [facility] [id number] [address] [place] [address] Jul, [facility], [place] [address] [facility] [id number] [address] [place] [address] Jul, [facility] [place] [address] [facility] [id number] [address] [place] [address] Jun, Attention deficit hyperactiv ity disorder (ADHD), combined type F90.2 [facility] [place] [address] [id number] [address] [place] [address] May, [facility] [place] [address] [facility] [id number] [address] [place] [id number] Apr, Attention deficit hyperactiv ity disorder (ADHD), combined type F90.2 [facility] [place] [address] [facility] [id number] [address] [place] [phone] Mar, Acute non-recurrent maxillar y sinusitis J01.00 [facility] [address] [id number] [address] [place] [address] Mar, Acute non-recurrent maxillar y sinusitis J01.00 [facility] [place] [address] [facility] [id number] [address] [place] [address] Mar, [facility] [address] [id number] [address] [place] [address] Feb, Gastroenteritis K52.9 [facility] [place] [address] [id number] [address] [place] [address] Feb, [facility] [place] [address] [facility] [id number] [address] [place] [address] Jan, [facility] [place] [address] [facility] [id number] [address] [place] [address] December, [facility] [place] [address] [facility] [id number] [address] [place] [address] December, Rash R21 [facility], [place] [address] [facility] [id number] [address] [place] [address] Nov, [facility] [place] [address] [facility] [id number] [address] [place] [address] Nov, [facility] [place] [address] [facility] [id number] [address] [place] [address] Oct, [facility] [place] [address] [facility] [id number] [address] [place] [address] Oct, Attention deficit hyperactiv ity disorder (ADHD), combined type F90.2 [facility] [place] [address] [facility] [id number] [address] [place] [phone] Sep, [facility] [place] [address] [facility] [id number] [address] [place] [phone] Sep, Viral syndrome B34.9 and HSV (herpes simplex virus) infection B00.9 [facility] [place] [address] [facility] [id number] [address] [place] [phone] Aug, [facility] [place] [address] [facility] [id number] [address] [place] [address] Aug, [facility] [place] [address] [facility] [id number] [address] [place] [address] Jul, [facility] [place] [address] [facility] [id number] [address] [place] [address] Jun, Gastroenteritis K52.9 [facility] [place] [address] [id number] [address] [place] [address] Jun, [facility] [place] [address] [id number] [address] [place] [address] Jun, Attention deficit hyperactiv ity disorder (ADHD), combined type F90.2 [facility] [place] [address] [id number] [address] [place] [phone] Jun, [facility] [place] [address] [facility] [id number] [address] [place] [address] May, 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 [facility] [place] [address] [id number] [address] [place] [address] May, [facility] [place] [id number] [address] [place] [address] Apr, [facility] [place] [address] [facility] [id number] [address] [place] [id number] Mar, [facility] [place] [address] [facility] [id number] [address] [place] [address] Feb, [facility], [place] [address] [id number] [place] [address] Jan, Poison janneth 692.6 [facility], [place] [address] [id number] [address] [place] [id number] Jan, Attention deficit disorder ( ADD) 314.00 [facility] [address] [id number] [address] [place] [address], [place] [address] 15 Jan, 2015 [facility] [address] [id number] [address] [place] [address], [place] [address] Jan, Anni sunshiney aruna 692.6 [facility] [address] [id number] [address] [place] [address], [place] [address] December, [facility] [address] [id number] [address] [place] [address], [place] [address] Nov, [facility] [address] [id number] [address] [place] [address], [place] [address] Nov, [facility] [address] [id number] [address] [place] [address], [place] [address] Oct, [facility] [address] [id number] [address] [place] [address], [place] [address] Oct, [facility] [address] [id number] [address] [place] [phone] Oct, [facility] [address] [id number] [address] [place] [address], [place] [address] Oct, [facility] [address] [id number] [address] [place] [phone] Oct, [facility] [address] [id number] [address] [place] [address], [place] [address] Oct, [facility] [address] [id number] [address] [place] [phone] Oct, [facility] [address] [id number] [address] [place] [address], [place] [address] Oct, [facility] [address] [id number] [address] [place] [address], [place] [address] Sep, [facility] [address] [id number] [address] [place] [address], [place] [address] Sep, [facility] [address] [id number] [address] [place] [address], [place] [address] Aug, [facility] [address] [id number] [address] [place] [address], [place] [address] Aug, [facility] [address] [id number] [address] [place] [address], [place] [address] Aug, [facility] [address] [id number] [address] [place] [address], [place] [address] Aug, [facility] [address] [id number] [address] [place] [address], [place] [address] Aug, [facility] [address] [id number] [address] [place] [address], [place] [address] Aug, [facility] [address] [id number] [address] [place] [address], [place] [address] Jul, [facility] [address] [id number] [address] [place] [address], [place] [address] Jul, [facility] [address] [id number] [address] [place] [address], [place] [address] Jun, [facility] [address] [id number] [address] [place] [address], [place] [address] Jun, [facility] [address] [id number] [address] [place] [address], [place] [address] Jun, [facility] [address] [id number] [address] [place] [address], [place] [address] Jun, [facility] [address] [id number] [address] [place] [address], [place] [address] May, [facility] [address] [id number] [address] [place] [address], [place] [address] May, [facility] [address] [id number] [address] [place] [address], [place] [address] Apr, [facility] [address] [id number] [address] [place] [address], [place] [address] Apr, [facility] [address] [id number] [address] [place] [address], [place] [address] Mar, [facility] [address] [id number] [address] [place] [address], [place] [address] Mar, [facility] [address] [id number] [address] [place] [address], [place] [address] Feb, [facility] [address] [id number] [address] [place] [address], [place] [address] Feb, [facility] [address] [id number] [address] [place] [address], [place] [address] Feb, [facility] [address] [id number] [address] [place] [address], [place] [address] Feb, [facility] [address] [id number] [address] [place] [address], [place] [address] Jan, [facility] [address] [id number] [address] [place] [address], [place] [address] Jan, [facility] [address] [id number] [address] [place] [address], [place] [address] Jan, [facility] [address] [id number] [address] [place] [address], [place] [address] Jan, [facility] [address] [id number] [address] [place] [address], [place] [address] December, [facility] [address] [id number] [address] [place] [address], [place] [address] December, [facility] [address] [id number] [address] [place] [address], [place] [address] December, [facility] [address] [id number] [address] [place] [address], [place] [address] December, [facility] [address] [id number] [address] [place] [address], [place] [address] Nov, [facility] [address] [id number] [address] [place] [address], [place] [address] Nov, [facility] [address] [id number] [address] [place] [address], [place] [address] Oct, [facility] [address] [id number] [address] [place] [address], [place] [address] Oct, [facility] [address] [id number] [address] [place] [address], [place] [address] Sep, [facility] [address] [id number] [address] [place] [address], [place] [address] Sep, [facility] [address] [id number] [address] [place] [address], [place] [address] Aug, [facility] [address] [id number] [address] [place] [address], [place] [address] Aug, [facility] [address] [id number] [address] [place] [address], [place] [address] Jul, [facility] [address] [id number] [address] [place] [address], [place] [address] Jul, [facility] [address] [id number] [address] [place] [address], [place] [address] Jun, [facility] [address] [id number] [address] [place] [address], [place] [address] Jun, [facility] [address] [id number] [address] [place] [address], [place] [address] Jun, [facility] [address] [id number] [address] [place] [address], [place] [address] Jun, [facility] [address] [id number] [address] [place] [address], [place] [address] May, [facility] [address] [id number] [address] [place] [address], [place] [address] May, [facility] [address] [id number] [address] [place] [address], [place] [address] May, [facility] [address] [id number] [address] [place] [address], [place] [address] Apr, [facility] [address] [id number] [address] [place] [address], [place] [address] Mar, [facility] [address] [id number] [address] [place] [address], [place] [address] Mar, [facility] [address] [id number] [address] [place] [address], [place] [address] Mar, [facility] [address] [id number] [address] [place] [address], [place] [address] Mar, [facility] [address] [id number] [address] [place] [address], [place] [address] Feb, [facility] [address] [id number] [address] [place] [address], [place] [address] Feb, [facility] [address] [id number] [address] [place] [address], [place] [address] Feb, [facility] [address] [id number] [address] [place] [address], [place] [address] Jan, [facility] [address] [id number] [address] [place] [address], [place] [address] Jan, [facility] [address] [id number] [address] [place] [address], [place] [address] December, [facility] [address] [id number] [address] [place] [address], [place] [address] Nov, [facility] [address] [id number] [address] [place] [address], [place] [address] Nov, [facility] [address] [id number] [address] [place] [address], [place] [address] Oct, [facility] [address] [id number] [address] [place] [address], [place] [address] Oct, [facility] [address] [id number] [address] [place] [address], [place] [address] Oct, [facility] [address] [id number] [address] [place] [address], [place] [address] Sep, [facility] [address] [id number] [address] [place] [address], [place] [address] Sep, [facility] [address] [id number] [address] [place] [address], [place] [address] Aug, [facility] [address] [id number] [address] [place] [address], [place] [address] Jun, [facility] [address] [id number] [address] [place] [address], [place] [address] Jun, [facility] [address] [id number] [address] [place] [address], [place] [address] Jun, [facility] [address] [id number] [address] [place] [address], [place] [address] Jun, [facility] [address] [id number] [address] [place] [address], [place] [address] Jun, [facility] [address] [id number] [address] [place] [address], [place] [address] Jun, [facility] [address] [id number] [address] [place] [address], [place] [address] Jun, [facility] [address] [id number] [address] [place] [address], [place] [address] Jun, [facility] [address] [id number] [address] [place] [address] May, [facility] [facility] [address] [id number] [address] [place] [address], [place] [address] May, [facility] [address] [id number] [address] [place] [address], [place] [address] May, [facility] [address] [id number] [address] [place] [address], [place] [address] May, [facility] [address] [id number] [address] [place] [address], [place] [address] 04 May, 2012 [facility] [address] [id number] [address] [place] [address], [place] [address] May, [facility] [address] [id number] [address] [place] [address], [place] [id number] 08 Apr, 2012 [facility] [address] [id number] [address] [place] [address], [place] [address] Apr, [facility] [address] [id number] [address] [place] [address], [place] [address] Mar, [facility] [address] [id number] [address] [place] [address], [place] [address] Feb, [facility] [address] [id number] [address] [place] [address], [place] [address] Jan, [facility] [address] [id number] [address] [place] [address], [place] [address] December, [facility] [address] [id number] [address] [place] [address], [place] [address] Nov, [facility] [address] [id number] [address] [place] [address], [place] [address] 24 Oct, 2011 [facility] [address] [id number] [address] [place] [address], [place] [address] Oct, [facility] [address] [id number] [address] [place] [address], [place] [address] Aug, [facility] [address] [id number] [address] [place] [address], [place] [address] Jul, [facility] [address] [id number] [address] [place] [address], [place] [address] 15 Jun, 2011 [facility] [address] [id number] [address] [place] [address], [place] [address] 14 Jun, 2011 [facility] [address] [id number] [address] [place] [address], [place] [address] 31 May, 2011 [facility] [address] [id number] [address] [place] [id number] May, [facility] [place] [address] [id number] [address] [place] [id number] Aug, [facility] [place] [address] [id number] [address] [place] [id number] Jul, [facility] [place] [address] [id number] [address] [place] [id number] Jul, [facility] [place] [address] [id number] [address] [place] [id number] Jun, [facility] [place] [address] [id number] [address] [place] [id number] Jun, [facility] [place] [address] [id number] [address] [place] [id number] Jun, [facility] [place] [address] [id number] [address] [place] [id number] Jun, [facility] [place] [address] [id number] [address] [place] [id number] Jun, [facility] [place] [address] [id number] [address] [place] [id number] May, [facility] [place] [address] [id number] [address] [place] [id number] May, [facility] [place] [address] [id number] [address] [place] [id number] May, IMMUNIZATIONS No Known Immunizations SOCIAL HISTORY [...]
--- OUTSIDE RECORDS SUMMARY | 2020-02-16 14:12 | XMS REPORT ---
Author Author Andrew Garcia Doctor Organization [facility] Address Unknown Phone Unavailable Care Team Providers Care Therapy Coordinator Name Role Phone Migration, Doctor Unavailable Unavailable PROBLEMS Type Condition ICD9-CM Code TIW24-MR Code Onset Dates Condition S tatus SNOMED Code Problem Attention deficit hyperactivity disorder (ADHD), combi david type F90.2 Active 908143175 Problem Gastroesophageal reflux disease, esophagitis pre sence not specified K21.9 Active 395617320 Problem Gastroesophageal reflux disease, esophagitis pre sence not specified K21.9 Active 104317272 Problem Mood disorder F39 Active 531381 05 Problem Attention deficit hyperactiv ity disorder (ADHD), predominantly inattentive type F90.0 Active 40570427 Problem Adjustment disorder with anxiety F43.22 Active 76696209 Problem Generalized anxiety disorder F41.1 A ctive [id number] ALLERGIES No Information ENCOUNTERS Encounter Location Date Diagnosis [facility] [address] [place] [address] Nov, [facility] [address] [place] [address] Oct, Flu-like symptoms R68.89 [facility] [address] [id number] [place] [address] Oct, Mood disorder F39 [address] [id number] [id number] Oct, [address] [id number] [address] Oct, [facility] [address] [id number] [place] [address] Sep, Laceration of right index fi nger without foreign body without damage to nail, initial encounter S61.210A [facility] [id number] [place] [phone] Aug, [facility] [address] [place] [address] Aug, [facility] [address] [address] [id number] [address] [place] [address] Jul, Laceration of left index fin guerline without foreign body without damage to nail, initial encounter S61.211A and Encounter for immunization Z23 [place] [address] [address] Jul, Abnormal LFTs R94.5 [place] [address] [address] Jul, Abnormal LFTs R94.5 [place] [address] [address] Jul, Gastroesophageal reflux dise ase, esophagitis presence not specified K21.9 and Diarrhea, unspecified type R19.7 [place] [address] [place] [id number] [place] [address] May, Bronchitis J40 [place] [address] [address] May, Attention deficit hyperactiv ity disorder (ADHD), combined type F90.2 [place] [address] [place] [id number] [place] [address] Apr, Adjustment disorder with anx iety F43.22 [place] [address] [place] [id number] [place] [address] Apr, Generalized anxiety disorder F41.1 and Attention deficit hyperactivity disorder (ADHD), combined type F90.2 [place] [address] [place] [id number] [place] [address] Mar, Generalized anxiety disorder F41.1 and Attention deficit hyperactivity disorder (ADHD), combined type F90.2 [place] [address] [place] [id number] [place] [address] Feb, Attention deficit hyperactiv ity disorder (ADHD), combined type F90.2 and Generalized anxiety disorder F41.1 [facility] [id number] [place] [address] Feb, Adjustment disorder with anx iety F43.22 [facility] [id number] [place] [address] Jan, Adjustment disorder with anx iety F43.22 [facility] [id number] [place] [address] Aug, Blood in stool K92.1 and His tory of hemorrhoids Z87.19 [place] [address] [place] [id number] [place] [address] Jul, Attention deficit hyperactiv ity disorder (ADHD), combined type F90.2 [place] [address] [place] [id number] [place] [address] Jul, Attention deficit hyperactiv ity disorder (ADHD), combined type F90.2 and Adjustment disorder with anxiety F43.22 [place] [address] [address] Jun, Bloody stools K92.1 and Acut e bilateral low back pain without sciatica M54.5 [place] [address] [place] [id number] [place] [address] Jun, Attention deficit hyperactiv ity disorder (ADHD), combined type F90.2 [facility] [id number] [place] [address] May, Attention deficit hyperactiv ity disorder (ADHD), combined type F90.2 [place] [address] [place] [id number] [place] [address] Apr, Attention deficit hyperactiv ity disorder (ADHD), combined type F90.2 [place] [id number] [place] [id number] [place] [address] Mar, Attention deficit hyperactiv ity disorder (ADHD), combined type F90.2 [facility] [address] [facility] [id number] [address] [place] [address] Mar, Attention deficit hyperactiv ity disorder (ADHD), combined type F90.2 [facility] [address] [facility] [id number] [address] [place] [address] Mar, Attention deficit hyperactiv ity disorder (ADHD), combined type F90.2 and High risk medication use Z79.899 [facility] [address] [facility] [id number] [address] [place] [address] Mar, Gastroenteritis K52.9 [facility] [address] [facility] [id number] [address] [place] [address] Feb, Attention deficit hyperactiv ity disorder (ADHD), combined type F90.2 [facility] [id number] [place] [address] Jan, Attention deficit hyperactiv ity disorder (ADHD), combined type F90.2 and High risk medication use Z79.899 [place] [address] [place], [place] [id number] 13 Sep, 2017 Acute cystitis without hematuria N30.00 and Acute suppurative otitis media of left ear with spontaneous rupture of tympanic membrane, recurrence not specified H66.[address] [id number] Jul, Seborrheic keratoses L82.1 and Mood disorder F39 [address] [id number] Jul, Attention deficit hyperactivity disorder (ADHD), predominantly inattentive type F90.[address] [id number] Jul, Mood disorder F39 [facility] [address] [facility] [id number] [address] [place] [address] Sep, [facility] [address] [address] [id number] [place] [address] Aug, [facility] [address] [id number] [address] [place] [address] Jul, [facility] [address] [id number] [address] [place] [address] Jul, [facility] [address] [id number] [address] [place] [address] Jun, Attention deficit hyperactiv ity disorder (ADHD), combined type F90.2 [facility] [address] [id number] [address] [place] [address] May, [facility] [address] [id number] [address] [place] [address] Apr, Attention deficit hyperactiv ity disorder (ADHD), combined type F90.2 [facility] [address] [id number] [address] [place] [address] Mar, Acute non-recurrent maxillar y sinusitis J01.00 [facility] [address] [id number] [address] [place] [address] Mar, Acute non-recurrent maxillar y sinusitis J01.00 [facility] [address] [id number] [address] [place] [address] Mar, [facility] [address] [facility] [id number] [address] [place] [address] Feb, Gastroenteritis K52.9 [facility] [address] [id number] [address] [place] [address] Feb, [facility] [address] [id number] [address] [place] [address] Jan, [facility] [address] [facility] [id number] [address] [place] [address] December, [facility] [address] [facility] [id number] [address] [place] [address] December, Rash R21 [facility] [address] [id number] [address] [place] [address] Nov, [facility] [address] [facility] [id number] [address] [place] [address] Nov, [facility] [address] [facility] [id number] [address] [place] [address] Oct, [facility] [address] [facility] [id number] [address] [place] [address] Oct, Attention deficit hyperactiv ity disorder (ADHD), combined type F90.2 [facility] [address] [facility] [id number] [address] [place] [address] Sep, [facility] [address] [facility] [id number] [address] [place] [address] Sep, Viral syndrome B34.9 and HSV (herpes simplex virus) infection B00.9 [facility] [address] [facility] [id number] [address] [place] [address] Aug, [facility] [address] [facility] [id number] [address] [place] [address] Aug, [facility] [address] [facility] [id number] [address] [place] [address] Jul, [facility] [address] [facility] [id number] [address] [place] [address] Jun, Gastroenteritis K52.9 [facility] [address] [facility] [id number] [address] [place] [address] Jun, [facility] [address] [facility] [id number] [address] [place] [address] Jun, Attention deficit hyperactiv ity disorder (ADHD), combined type F90.2 [facility] [address] [facility] [id number] [address] [place] [address] Jun, [facility] [address] 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 [address] [id number] [address] [place] [address] 09 May, 2015 [facility] [address] [id number] [address] [place] [address] 08 Apr, 2015 [facility] [address] [id number] [address] [place] [address] Mar, [facility] [address] [id number] [address] [place] [address] Feb, [facility] [address] [id number] [address] [place] [address] Jan, Poison janneth 692.6 [facility] [address] [id number] [address] [place] [address] 17 Jan, 2015 Attention deficit disorder ( ADD) 314.00 [facility] [address] [id number] [address] [place] [address] Jan, [facility] [address] [id number] [address] [place] [address] Jan, Poison janneth dermatitis 692.6 [facility] [address] [id number] [address] [place] [address] December, [facility] [address] [id number] [address] [place] [address] 14 Nov, 2014 [facility] [address] [id number] [address] [place] [address] Nov, [facility] [address] [id number] [address] [place] [address] Oct, [facility] [address] [id number] [address] [place] [address] Oct, [facility] [address] [id number] [address] [place] [address] Oct, [facility] [address] [id number] [address] [place] [address] Oct, [facility] [address] [id number] [address] [place] [address], [place] [address] Oct, [facility] [address] [id number] [address] [place] [address], [place] [address] Oct, [facility] [address] [id number] [address] [place] [address], [place] [address] Oct, [facility] [address] [id number] [address] [place] [address], [place] [address] Oct, [facility] [address] [id number] [address] [place] [address], [place] [address] Sep, [facility] [address] [id number] [address] [place] [address], [place] [address] Sep, [facility] [address] [id number] [address] [place] [address], [place] [address] Aug, [facility] [address] [id number] [address] [place] [address], [place] [address] Aug, [facility] [address] [id number] [address] [place] [address], [place] [address] Aug, [facility] [address] [id number] [address] [place] [address], [place] [address] Aug, [facility] [address] [id number] [address] [place] [address], [place] [address] Aug, [facility] [address] [id number] [address] [place] [address] Aug, [facility] [address] [id number] [address] [place] [address], [place] [address] Jul, [facility] [address] [id number] [address] [place] [address], [place] [address] Jul, [facility] [address] [id number] [address] [place] [address], [place] [address] Jun, [facility] [address] [id number] [address] [place] [address], [place] [address] Jun, [facility] [address] [id number] [address] [place] [address], [place] [address] Jun, [facility] [address] [id number] [address] [place] [address], [place] [address] Jun, [facility] [address] [id number] [address] [place] [address], [place] [address] May, [facility] [address] [id number] [address] [place] [address], [place] [address] May, [facility] [address] [id number] [address] [place] [address], [place] [address] Apr, [facility] [address] [id number] [address] [place] [address], [place] [address] Apr, [facility] [address] [id number] [address] [place] [address], [place] [address] Mar, [facility] [address] [id number] [address] [place] [address], [place] [address] Mar, [facility] [address] [id number] [address] [place] [address], [place] [address] Feb, [facility] [address] [id number] [address] [place] [address], [place] [address] Feb, [facility] [address] [id number] [address] [place] [address], [place] [address] Feb, [facility] [address] [id number] [address] [place] [address], [place] [address] Feb, [facility] [address] [id number] [address] [place] [address], [place] [address] Jan, [facility] [address] [id number] [address] [place] [address], [place] [address] Jan, [facility] [address] [id number] [address] [place] [address], [place] [address] Jan, [facility] [address] [id number] [address] [place] [address], [place] [address] Jan, [facility] [address] [id number] [address] [place] [address], [place] [address] December, [facility] [address] [id number] [address] [place] [address], [place] [address] December, [facility] [address] [id number] [address] [place] [address], [place] [address] December, [facility] [address] [id number] [address] [place] [address], [place] [address] December, [facility] [address] [id number] [address] [place] [address], [place] [address] Nov, [facility] [address] [id number] [address] [place] [address], [place] [address] Nov, [facility] [address] [id number] [address] [place] [address], [place] [address] Oct, [facility] [address] [id number] [address] [place] [address], [place] [address] Oct, [facility] [address] [id number] [address] [place] [address], [place] [address] Sep, [facility] [address] [id number] [address] [place] [address], [place] [address] Sep, [facility] [address] [id number] [address] [place] [address], [place] [address] Aug, [facility] [address] [id number] [address] [place] [address], [place] [address] Aug, [facility] [address] [id number] [address] [place] [address], [place] [address] Jul, [facility] [address] [id number] [address] [place] [address], [place] [address] Jul, [facility] [address] [id number] [address] [place] [address], [place] [address] Jun, [facility] [address] [id number] [address] [place] [address], [place] [address] Jun, [facility] [address] [id number] [address] [place] [address], [place] [address] Jun, [facility] [address] [id number] [address] [place] [address], [place] [address] Jun, [facility] [address] [id number] [address] [place] [address], [place] [address] May, [facility] [address] [id number] [address] [place] [address], [place] [address] May, [facility] [address] [id number] [address] [place] [address], [place] [address] May, [facility] [address] [id number] [address] [place] [address], [place] [address] Apr, [facility] [address] [id number] [address] [place] [address], [place] [address] Mar, [facility] [address] [id number] [address] [place] [address], [place] [address] Mar, [facility] [address] [id number] [address] [place] [address], [place] [address] Mar, [facility] [address] [id number] [address] [place] [address], [place] [address] Mar, [facility] [address] [id number] [address] [place] [address], [place] [address] Feb, [facility] [address] [id number] [address] [place] [address], [place] [address] Feb, [facility] [address] [id number] [address] [place] [address], [place] [address] Feb, [facility] [address] [id number] [address] [place] [address], [place] [address] Jan, [facility] [address] [id number] [address] [place] [address], [place] [id number] 04 Jan, 2013 [facility] [address] [id number] [address] [place] [address], [place] [address] December, [facility] [address] [id number] [address] [place] [address], [place] [address] Nov, [facility] [address] [id number] [address] [place] [address], [place] [address] Nov, [facility] [address] [id number] [address] [place] [address], [place] [address] Oct, [facility] [address] [id number] [address] [place] [address], [place] [address] Oct, [facility] [address] [id number] [address] [place] [address], [place] [address] Oct, [facility] [address] [id number] [address] [place] [address], [place] [address] Sep, [facility] [address] [id number] [address] [place] [address], [place] [address] Sep, [facility] [address] [id number] [address] [place] [address], [place] [address] Aug, [facility] [address] [id number] [address] [place] [address], [place] [address] Jun, [facility] [address] [id number] [address] [place] [address], [place] [address] Jun, [facility] [address] [id number] [address] [place] [address], [place] [address] Jun, [facility] [address] [id number] [address] [place] [address], [place] [address] Jun, [facility] [address] [id number] [address] [place] [address], [place] [address] Jun, [facility] [address] [id number] [address] [place] [address], [place] [address] Jun, [facility] [address] [id number] [address] [place] [address], [place] [address] Jun, [facility] [address] [id number] [address] [place] [address], [place] [address] Jun, [facility] [address] [id number] [address] [place] [address], [place] [address] May, [facility] [address] [id number] [address] [place] [address], [place] [address] May, [facility] [address] [id number] [address] [place] [address], [place] [address] May, [facility] [address] [id number] [address] [place] [address], [place] [address] May, [facility] [address] [id number] [address] [place] [address], [place] [address] May, [facility] [address] [id number] [address] [place] [address], [place] [address] May, [facility] [address] [id number] [address] [place] [address], [place] [address] Apr, [facility] [address] [id number] [address] [place] [id number] Apr, [facility] [address] [id number] [address] [place] [id number] Mar, [facility] [address] [id number] [address] [place] [id number] Feb, [facility] [address] [id number] [address] [place] [address], [place] [id number] Jan, [facility] [address] [id number] [address] [place] [address], [place] [address] December, [facility] [address] [id number] [address] [place] [address], [place] [address] Nov, [facility] [address] [id number] [address] [place] [id number] 24 Oct, 2011 [facility] [address] [id number] [address] [place] [address], [place] [address] 15 Oct, 2011 [facility] [address] [id number] [address] [place] [address], [place] [id number] 10 Aug, 2011 [facility] [address] [id number] [address] [place] [address], [place] [id number] 22 Jul, 2011 [facility] [address] [id number] [address] [place] [address], [place] [address] 15 Jun, 2011 [facility] [address] [id number] [address] [place] [address], [place] [address] 14 Jun, 2011 [facility] [address] [id number] [address] [place] [address], [place] [id number] 31 May, 2011 [facility] [address] [id number] [address] [place] [address], [place] [address] 31 May, 2011 [facility] [address] [id number] [address] [place] [address], [place] [address] Aug, [facility] [address] [id number] [address] [place] [address], [place] [address] 29 Jul, 2010 [facility] [address] [id number] [address] [place] [address], [place] [address] Jul, [facility] [address] [id number] [address] [place] [address], [place] [address] Jun, [facility] [address] [id number] [address] [place] [address], [place] [address] 17 Jun, 2010 [facility] [address] [id number] [address] [place] [address], [place] [address] Jun, [facility] [address] [id number] [address] [place] [address], [place] [id number] 04 Jun, 2010 [facility] [address] [id number] [address] [place] [address], [place] [address] Jun, [facility] [address] [facility] [id number] [address] [address] 18 May, 2010 [facility] [address] [facility] [id number] [address] [place] [id number] May[facility] [address] [facility] [id number] [address] [place] [id number] May, IMMUNIZATIONS No Known Immunizations SOCIAL HISTORY Never Assessed REASON FOR VISIT PLAN OF CARE VITAL SIGNS Height 69 in 2013-01-19 Weight 203.18 lbs 2013-01-19 Temperature 99.3 degrees Fahrenheit 2013-01-19 Heart Rate 96 bpm 2013-01-19 Respiratory Rate 16 2013-01-19 Blood pressure systolic 120 mmHg 2013-01-19 Blood pressure diastolic 80 mmHg 2013-01-19 MEDICATIONS Unknown Medications RESULTS No Results PROCEDURES No Known procedures INSTRUCTIONS MEDICATIONS ADMINISTERED No Known Medications MEDICAL (GENERAL) HISTORY Type Description Date Medical History attention deficit hyperactivity disorder Medical History Mood disorder Surgical History No Surgical history information Hospitalization History [facility] P[facility] 04/2016
--- OUTSIDE RECORDS SUMMARY | 2020-02-16 14:12 | XMS REPORT ---
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 Name Role Phone Migration, Doctor Unavailable Unavailable PROBLEMS Type Condition ICD9-CM Code [id number] Code Onset Dates Condition S tatus SNOMED Code Problem Attention deficit hyperactivity disorder (ADHD), combi david type F90.2 Active 596166206 Problem Gastroesophageal reflux disease, esophagitis pre sence not specified K21.9 Active 527810389 Problem Gastroesophageal reflux disease, esophagitis pre sence not specified K21.9 Active 482346940 Problem Mood disorder F39 Active 727405 05 Problem Attention deficit hyperactiv ity disorder (ADHD), predominantly inattentive type F90.0 Active 27443437 Problem Adjustment disorder with anxiety F43.22 Active 97885344 Problem Generalized anxiety disorder F41.1 A ctive [id number] ALLERGIES No Information ENCOUNTERS Encounter Location Date Diagnosis [facility] [address] [place] [address] Nov, [facility] [address] [place] [address] Oct, Flu-like symptoms R68.89 [facility] [address] [place] [id number] [address] [place] [address] Oct, Mood disorder F39 [address] [address] [id number] [id number] Oct, [address] [id number] [address] Oct, [facility] [id number] [address] [place] [address] Sep, Laceration of right index fi nger without foreign body without damage to nail, initial encounter S61.210A [facility] [id number] [place] [address] Aug, [facility] [address] [place] [address] Aug, [facility] [address] [id number] [place] [address] Jul, Laceration of left index fin guerline without foreign body without damage to nail, initial encounter S61.211A and Encounter for immunization Z23 [place] [address] [address] Jul, Abnormal LFTs R94.5 [place] [address] [address] Jul, Abnormal LFTs R94.5 [place] [address] [address] Jul, Gastroesophageal reflux dise ase, esophagitis presence not specified K21.9 and Diarrhea, unspecified type R19.7 [place] [address] [place] [id number] [place] [address] May, Bronchitis J40 [place] [address] [address] May, Attention deficit hyperactiv ity disorder (ADHD), combined type F90.2 [place] [address] [place] [id number] [place] [address] Apr, Adjustment disorder with anx iety F43.22 [place] [address] [place] [id number] [place] [address] Apr, Generalized anxiety disorder F41.1 and Attention deficit hyperactivity disorder (ADHD), combined type F90.2 [place] [address] [place] [id number] [place] [address] Mar, Generalized anxiety disorder F41.1 and Attention deficit hyperactivity disorder (ADHD), combined type F90.2 [place] [address] [place] [id number] [place] [address] Feb, Attention deficit hyperactiv ity disorder (ADHD), combined type F90.2 and Generalized anxiety disorder F41.1 [facility] [address] [id number] [place] [address] Feb, Adjustment disorder with anx iety F43.22 [facility] [id number] [place] [address] Jan, Adjustment disorder with anx iety F43.22 [facility] [address] [place] [address] [id number] [place] [address] Aug, Blood in stool K92.1 and His tory of hemorrhoids Z87.19 [place] [address] [place] [id number] [place] [address] Jul, Attention deficit hyperactiv ity disorder (ADHD), combined type F90.2 [place] [address] [place] [id number] [place] [address] Jul, Attention deficit hyperactiv ity disorder (ADHD), combined type F90.2 and Adjustment disorder with anxiety F43.22 [place] [address] [address] Jun, Bloody stools K92.1 and Acut e bilateral low back pain without sciatica M54.5 [place] [address] [place] [id number] [place] [id number] Jun, Attention deficit hyperactiv ity disorder (ADHD), combined type F90.2 [facility] [address] [address] [id number] [place] [address] May, Attention deficit hyperactiv ity disorder (ADHD), combined type F90.2 [place] [address] [place] [id number] [place] [address] Apr, Attention deficit hyperactiv ity disorder (ADHD), combined type F90.2 [place] [address] [place] [id number] [place] [address] Mar, Attention deficit hyperactiv ity disorder (ADHD), combined type F90.2 [facility] [address] [facility] [place] [id number] [address] [place] [address] Mar, Attention deficit hyperactiv ity disorder (ADHD), combined type F90.2 [facility] [address] [facility] [place] [id number] [address] [place] [address] Mar, Attention deficit hyperactiv ity disorder (ADHD), combined type F90.2 and High risk medication use Z79.899 [facility] [address] [facility] [place] [id number] [address] [place] [address] Mar, Gastroenteritis K52.9 [facility] [address] [facility] [place] [id number] [address] [place] [address] Feb, Attention deficit hyperactiv ity disorder (ADHD), combined type F90.2 [facility] [address] [address] [id number] [place] [address] Jan, Attention deficit hyperactiv ity disorder (ADHD), combined type F90.2 and High risk medication use Z79.899 [place] [address] [place], [place] [id number] 57 13 Sep, 2017 Acute cystitis without hematuria N30.00 and Acute suppurative otitis media of left ear with spontaneous rupture of tympanic membrane, recurrence not specified H66.[address] [id number] Jul, Seborrheic keratoses L82.1 and Mood disorder F39 [address] [id number] Jul, Attention deficit hyperactivity disorder (ADHD), predominantly inattentive type F90.[address] [id number] Jul, Mood disorder F39 [facility] [address] [facility] [place] [id number] [address] [place] [address] Sep, [facility] [address] [place] [address] [id number] [place] [address] Aug, [facility] [address] [id number] [address] [place] [address] Jul, [facility] [address] [id number] [address] [place] [address] Jul, [facility] [address] [id number] [address] [place] [address] Jun, Attention deficit hyperactiv ity disorder (ADHD), combined type F90.2 [facility] [address] [id number] [address] [place] [address] May, [facility] [address] [id number] [address] [place] [address] Apr, Attention deficit hyperactiv ity disorder (ADHD), combined type F90.2 [facility] [address] [id number] [address] [place] [address] Mar, Acute non-recurrent maxillar y sinusitis J01.00 [facility] [address] [id number] [address] [place] [address] Mar, Acute non-recurrent maxillar y sinusitis J01.00 [facility] [address] [id number] [address] [place] [address] Mar, [facility] [address] [facility] [place] [id number] [address] [place] [address] Feb, Gastroenteritis K52.9 [facility] [address] [id number] [address] [place] [id number] Feb, [facility] [address] [id number] [address] [place] [address] Jan, [facility] [address] [facility] [place] [id number] [address] [place] [address] December, [facility] [address] [facility] [place] [id number] [address] [place] [address] December, Rash R21 [facility] [address] [id number] [address] [place] [address] Nov, [facility] [address] [facility] [place] [id number] [address] [place] [address] Nov, [facility] [address] [facility] [place] [id number] [address] [place] [address] Oct, [facility] [address] [facility] [place] [id number] [address] [place] [address] Oct, Attention deficit hyperactiv ity disorder (ADHD), combined type F90.2 [facility] [address] [facility] [place] [id number] [address] [place] [address] Sep, [facility] [address] [facility] [place] [id number] [address] [place] [address] Sep, Viral syndrome B34.9 and HSV (herpes simplex virus) infection B00.9 [facility] [address] [facility] [place] [id number] [address] [place] [address] Aug, [facility] [address] [facility] [place] [id number] [address] [place] [id number] Aug, [facility] [address] [facility] [place] [id number] [address] [place] [id number] Jul, [facility] [address] [facility] [place] [id number] [address] [place] [id number] Jun, Gastroenteritis K52.9 [facility] [address] [facility] [place] [id number] [address] [place] [address] Jun, [facility] [address] [facility] [place] [id number] [address] [place] [address] Jun, Attention deficit hyperactiv ity disorder (ADHD), combined type F90.2 [facility] [address] [facility] [place] [id number] [address] [place] [address] Jun, [facility] [address] [facility] [place] [id number] [address] [place] [address] May, 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 [facility] [address] [id number] [address] [place] [id number] 09 May, 2015 [facility] [address] [id number] [address] [place] [id number] 08 Apr, 2015 [facility] [address] [id number] [address] [place] [address] Mar, [facility] [address] [id number] [address] [place] [id number] Feb, [facility] [address] [id number] [address] [place] [address] Jan, Poison janneth 692.6 [facility] [address] [id number] [address] [place] [id number] 17 Jan, 2015 Attention deficit disorder ( ADD) 314.00 [facility] [address] [id number] [address] [place] [address] Jan, [facility] [address] [id number] [address] [place] [address] Jan, Poison janneth dermatitis 692.6 [facility] [address] [id number] [address] [place] [address] December, [facility] [address] [id number] [address] [place] [id number] 14 Nov, 2014 [facility] [address] [id number] [address] [place] [id number] Nov, [facility] [address] [id number] [address] [place] [address] Oct, [facility] [address] [id number] [address] [place] [id number] Oct, [facility] [address] [id number] [address] [place] [address] Oct, [facility] [address] [id number] [address] [place] [address] Oct, [facility] [address] [id number] [address] [place] [address], [place] [address] Oct, [facility] [address] [id number] [address] [place] [address], [place] [address] Oct, [facility] [address] [id number] [address] [place] [address], [place] [address] Oct, [facility] [address] [id number] [address] [place] [address], [place] [address] Oct, [facility] [address] [id number] [address] [place] [address], [place] [address] Sep, [facility] [address] [id number] [address] [place] [address], [place] [address] Sep, [facility] [address] [id number] [address] [place] [address], [place] [address] Aug, [facility] [address] [id number] [address] [place] [address], [place] [address] Aug, [facility] [address] [id number] [address] [place] [address], [place] [address] Aug, [facility] [address] [id number] [address] [place] [address], [place] [address] Aug, [facility] [address] [id number] [address] [place] [address], [place] [address] Aug, [facility] [address] [id number] [address] [place] [address] Aug, [facility] [address] [id number] [address] [place] [address], [place] [address] Jul, [facility] [address] [id number] [address] [place] [address], [place] [address] Jul, [facility] [address] [id number] [address] [place] [address], [place] [address] Jun, [facility] [address] [id number] [address] [place] [address], [place] [address] Jun, [facility] [address] [id number] [address] [place] [address], [place] [address] Jun, [facility] [address] [id number] [address] [place] [address], [place] [address] Jun, [facility] [address] [id number] [address] [place] [address], [place] [address] May, [facility] [address] [id number] [address] [place] [address], [place] [address] May, [facility] [address] [id number] [address] [place] [address], [place] [address] Apr, [facility] [address] [id number] [address] [place] [address], [place] [address] Apr, [facility] [address] [id number] [address] [place] [address], [place] [address] Mar, [facility] [address] [id number] [address] [place] [address], [place] [address] Mar, [facility] [address] [id number] [address] [place] [address], [place] [address] Feb, [facility] [address] [id number] [address] [place] [address], [place] [address] Feb, [facility] [address] [id number] [address] [place] [address], [place] [address] Feb, [facility] [address] [id number] [address] [place] [address], [place] [address] Feb, [facility] [address] [id number] [address] [place] [address], [place] [address] Jan, [facility] [address] [id number] [address] [place] [address], [place] [address] Jan, [facility] [address] [id number] [address] [place] [address], [place] [address] Jan, [facility] [address] [id number] [address] [place] [address], [place] [address] Jan, [facility] [address] [id number] [address] [place] [address], [place] [address] December, [facility] [address] [id number] [address] [place] [address], [place] [address] December, [facility] [address] [id number] [address] [place] [address], [place] [address] December, [facility] [address] [id number] [address] [place] [address], [place] [address] December, [facility] [address] [id number] [address] [place] [address], [place] [address] Nov, [facility] [address] [id number] [address] [place] [address], [place] [address] Nov, [facility] [address] [id number] [address] [place] [address], [place] [address] Oct, [facility] [address] [id number] [address] [place] [address], [place] [address] Oct, [facility] [address] [id number] [address] [place] [address], [place] [address] Sep, [facility] [address] [id number] [address] [place] [address], [place] [address] Sep, [facility] [address] [id number] [address] [place] [address], [place] [address] Aug, [facility] [address] [id number] [address] [place] [address], [place] [address] Aug, [facility] [address] [id number] [address] [place] [address], [place] [address] Jul, [facility] [address] [id number] [address] [place] [address], [place] [address] Jul, [facility] [address] [id number] [address] [place] [address], [place] [address] Jun, [facility] [address] [id number] [address] [place] [address], [place] [address] Jun, [facility] [address] [id number] [address] [place] [address], [place] [address] Jun, [facility] [address] [id number] [address] [place] [address], [place] [address] Jun, [facility] [address] [id number] [address] [place] [address], [place] [address] May, [facility] [address] [id number] [address] [place] [address], [place] [address] May, [facility] [address] [id number] [address] [place] [address], [place] [address] May, [facility] [address] [id number] [address] [place] [address], [place] [address] Apr, [facility] [address] [id number] [address] [place] [address], [place] [address] Mar, [facility] [address] [id number] [address] [place] [address], [place] [address] Mar, [facility] [address] [id number] [address] [place] [address], [place] [address] Mar, [facility] [address] [id number] [address] [place] [address], [place] [address] Mar, [facility] [address] [id number] [address] [place] [address], [place] [address] Feb, [facility] [address] [id number] [address] [place] [address], [place] [address] Feb, [facility] [address] [id number] [address] [place] [address], [place] [address] Feb, [facility] [address] [id number] [address] [place] [address], [place] [address] Jan, [facility] [address] [id number] [address] [place] [address], [place] [address] 04 Jan, 2013 [facility] [address] [id number] [address] [place] [address], [place] [address] December, [facility] [address] [id number] [address] [place] [address], [place] [address] Nov, [facility] [address] [id number] [address] [place] [address], [place] [address] Nov, [facility] [address] [id number] [address] [place] [address], [place] [address] Oct, [facility] [address] [id number] [address] [place] [address], [place] [address] Oct, [facility] [address] [id number] [address] [place] [address], [place] [address] Oct, [facility] [address] [id number] [address] [place] [address], [place] [address] Sep, [facility] [address] [id number] [address] [place] [address], [place] [address] Sep, [facility] [address] [id number] [address] [place] [address], [place] [address] Aug, [facility] [address] [id number] [address] [place] [address], [place] [address] Jun, [facility] [address] [id number] [address] [place] [address], [place] [id number] Jun, [facility] [address] [id number] [address] [place] [address], [place] [id number] Jun, [facility] [address] [id number] [address] [place] [address], [place] [id number] Jun, [facility] [address] [id number] [address] [place] [address], [place] [id number] Jun, [facility] [address] [id number] [address] [place] [address], [place] [id number] Jun, [facility] [address] [id number] [address] [place] [address], [place] [id number] Jun, [facility] [address] [id number] [address] [place] [address], [place] [id number] Jun, [facility] [address] [id number] [address] [place] [address], [place] [id number] May, [facility] [address] [id number] [address] [place] [address], [place] [id number] May, [facility] [address] [id number] [address] [place] [address], [place] [id number] May, [facility] [address] [id number] [address] [place] [address], [place] [id number] May, [facility] [address] [id number] [address] [place] [address], [place] [id number] May, [facility] [address] [id number] [address] [place] [address], [place] [id number] May, [facility] [address] [id number] [address] [place] [address], [place] [id number] Apr, [facility] [address] [id number] [address] [place] [id number] Apr, [facility] [address] [id number] [address] [place] [id number] Mar, [facility] [address] [id number] [address] [place] [id number] Feb, [facility] [address] [id number] [address] [place] [address], [place] [id number] Jan, [facility] [address] [id number] [address] [place] [address], [place] [id number] December, [facility] [address] [id number] [address] [place] [address], [place] [id number] Nov, [facility] [address] [id number] [address] [place] [id number] 24 Oct, 2011 [facility] [address] [id number] [address] [place] [address], [place] [id number] 15 Oct, 2011 [facility] [address] [id number] [address] [place] [address], [place] [id number] 10 Aug, 2011 [facility] [address] [id number] [address] [place] [address], [place] [id number] 22 Jul, 2011 [facility] [address] [id number] [address] [place] [address], [place] [id number] 15 Jun, 2011 [facility] [address] [id number] [address] [place] [address], [place] [id number] 14 Jun, 2011 [facility] [address] [id number] [address] [place] [address], [place] [id number] 31 May, 2011 [facility] [address] [id number] [address] [place] [address], [place] [id number] 31 May, 2011 [facility] [address] [id number] [address] [place] [address], [place] [id number] Aug, [facility] [address] [id number] [address] [place] [address], [place] [id number] 29 Jul, 2010 [facility] [address] [id number] [address] [place] [address], [place] [id number] Jul, [facility] [address] [id number] [address] [place] [address], [place] [id number] Jun, [facility] [address] [id number] [address] [place] [address], [place] [id number] 17 Jun, 2010 [facility] [address] [id number] [address] [place] [address], [place] [id number] Jun, [facility] [address] [id number] [address] [place] [address], [place] [id number] 04 Jun, 2010 [facility] [address] [id number] [address] [place] [address], [place] [id number] Jun, [facility] [address] [facility] [place] [id number] [address] [place] [id number] 18 May, 2010 [facility] [address] [facility] [place] [id number] [address] [place] [id number] May, [facility] [address] [facility] [place] [id number] [address] [place] [id number] May, IMMUNIZATIONS No Known Immunizations SOCIAL HISTORY [...]
--- OUTSIDE RECORDS SUMMARY | 2020-02-16 14:12 | XMS REPORT ---
Author Author Andrew Blanco Organization [facility] Address [address] [place] [address] Care Team Providers Care Office Workforce Planner Name Role Phone SALO Blanco Unavailable PROBLEMS Type Condition ICD9-CM Code UST56-IZ Code Onset Dates Condition S tatus SNOMED Code Problem Attention deficit hyperactivity disorder (ADHD), combi david type F90.2 Active 913564099 Problem Gastroesophageal reflux disease, esophagitis pre sence not specified K21.9 Active 443651245 Problem Gastroesophageal reflux disease, esophagitis pre sence not specified K21.9 Active 117936486 Problem Mood disorder F39 Active 827763 05 Problem Attention deficit hyperactiv ity disorder (ADHD), predominantly inattentive type F90.0 Active 12701521 Problem Adjustment disorder with anxiety F43.22 Active 26106040 Problem Generalized anxiety disorder F41.1 A ctive [id number] ALLERGIES No Information ENCOUNTERS Encounter Location Date Diagnosis [facility] [address] [facility] [id number] [address] [place] [address] Nov, [facility] [address] [place] [id number] [address] [place] [address] Oct, Flu-like symptoms R68.89 [facility] [address] [facility] [id number] [address] [place] [address] Oct, Mood disorder F39 [facility] [address] [id number] [id number] Oct, [address] [place] [address] Oct, [facility] [address] [facility] [id number] [address] [place] [address] Sep, Laceration of right index fi nger without foreign body without damage to nail, initial encounter S61.210A [facility] [address] [facility] [id number] [address] [place] [address] Aug, [facility] [address] [facility] [id number] [address] [place] [address] Aug, [facility] [address] [facility] [id number] [address] [place] [address] Jul, Laceration of left index fin guerline without foreign body without damage to nail, initial encounter S61.211A and Encounter for immunization Z23 [facility] [address] [facility] [id number] [address] [place] [address] Jul, Abnormal LFTs R94.5 [place] [address] [facility] [id number] [address] [place] [address] Jul, Abnormal LFTs R94.5 [place] [address] [facility] [id number] [address] [place] [address] Jul, Gastroesophageal reflux dise ase, esophagitis presence not specified K21.9 and Diarrhea, unspecified type R19.7 [facility] [address] [facility] [id number] [address] [place] [address] May, Bronchitis J40 [place] [address] [facility] [id number] [address] [place] [address] May, Attention deficit hyperactiv ity disorder (ADHD), combined type F90.2 [facility] [address] [place] [id number] [address] [place] [address] Apr, Adjustment disorder with anx iety F43.22 [place] [address] [facility] [id number] [address] [place] [address] Apr, Generalized anxiety disorder F41.1 and Attention deficit hyperactivity disorder (ADHD), combined type F90.2 [facility] [address] [place] [id number] [address] [place] [address] Mar, Generalized anxiety disorder F41.1 and Attention deficit hyperactivity disorder (ADHD), combined type F90.2 [facility] [address] [place] [id number] [address] [place] [address] Feb, Attention deficit hyperactiv ity disorder (ADHD), combined type F90.2 and Generalized anxiety disorder F41.1 [facility] [address] [facility] [id number] [address] [place] [address] Feb, Adjustment disorder with anx iety F43.22 [facility] [address] [place] [id number] [address] [place] [address] Jan, Adjustment disorder with anx iety F43.22 [place] [address] [place] [id number] [place] [address] Aug, Blood in stool K92.1 and His tory of hemorrhoids Z87.19 [place] [address] [place] [id number] [address] [place] [address] Jul, Attention deficit hyperactiv ity disorder (ADHD), combined type F90.2 [place] [address] [place] [id number] [address] [place] [address] Jul, Attention deficit hyperactiv ity disorder (ADHD), combined type F90.2 and Adjustment disorder with anxiety F43.22 [facility] [address] [place] [id number] [address] [place] [address] Jun, Bloody stools K92.1 and Acut e bilateral low back pain without sciatica M54.5 [facility] [address] [place] [id number] [address] [place] [address] 08 Jun, 2018 Attention deficit hyperactiv ity disorder (ADHD), combined type F90.2 [facility] [address] [place] [id number] [address] [place] [address] May, Attention deficit hyperactiv ity disorder (ADHD), combined type F90.2 [facility] [address] [place] [id number] [address] [place] [address] Apr, Attention deficit hyperactiv ity disorder (ADHD), combined type F90.2 [facility] [address] [facility] [id number] [address] [place] [address] Mar, Attention deficit hyperactiv ity disorder (ADHD), combined type F90.2 [facility] [address] [id number] [address] [place] [address] Mar, Attention deficit hyperactiv ity disorder (ADHD), combined type F90.2 [facility] [address] [facility] [id number] [address] [place] [address] Mar, Attention deficit hyperactiv ity disorder (ADHD), combined type F90.2 and High risk medication use Z79.899 [facility] [address] [facility] [id number] [address] [place] [address] Mar, Gastroenteritis K52.9 [facility] [address] [facility] [id number] [address] [place] [address] 17 Feb, 2018 Attention deficit hyperactiv ity disorder (ADHD), combined type F90.2 [facility] [address] [facility] [id number] [address] [place] [address] 05 Jan, 2018 Attention deficit hyperactiv ity disorder (ADHD), combined type F90.2 and High risk medication use Z79.[address] [id number] 13 Sep, 2017 Acute cystitis without hematuria N30.00 and Acute suppurative otitis media of left ear with spontaneous rupture of tympanic membrane, recurrence not specified H66.[address] [id number] Jul, Seborrheic keratoses L82.1 and Mood disorder F39 [address] [id number] Jul, Attention deficit hyperactivity disorder (ADHD), predominantly inattentive type F90.[address] [id number] Jul, Mood disorder F39 [facility] [address] [facility] [id number] [address] [place] [address] 24 Sep, [address] [place] [address] [id number] [address] [place] [address] Aug, [facility] [address] [id number] [address] [place] [address] Jul, [facility] [address] [id number] [address] [place] [address] Jul, [facility] [address] [id number] [address] [place] [address] Jun, Attention deficit hyperactiv ity disorder (ADHD), combined type F90.2 [facility] [address] [id number] [address] [place] [address] May, [facility] [address] [id number] [address] [place] [address] Apr, Attention deficit hyperactiv ity disorder (ADHD), combined type F90.2 [facility] [address] [id number] [address] [place] [address] Mar, Acute non-recurrent maxillar y sinusitis J01.00 [facility] [address] [id number] [address] [place] [address] Mar, Acute non-recurrent maxillar y sinusitis J01.00 [facility] [address] [id number] [address] [place] [address] Mar, [facility] [address] [id number] [address] [place] [address] Feb, Gastroenteritis K52.9 [facility] [address] [id number] [address] [place] [address] Feb, [facility] [address] [id number] [address] [place] [address] Jan, [facility] [address] [id number] [address] [place] [address] December, [facility] [address] [id number] [address] [place] [address] December, Rash R21 [facility] [address] [facility] [id number] [address] [place] [address] Nov, [facility] [address] [facility] [id number] [address] [place] [address] Nov, [facility] [address] [facility] [id number] [address] [place] [address] Oct, [facility] [address] [facility] [id number] [address] [place] [address] Oct, Attention deficit hyperactiv ity disorder (ADHD), combined type F90.2 [facility] [address] [facility] [id number] [address] [place] [address] Sep, [facility] [address] [facility] [id number] [address] [place] [address] Sep, Viral syndrome B34.9 and HSV (herpes simplex virus) infection B00.9 [facility] [address] [facility] [id number] [address] [place] [address] Aug, [facility] [address] [facility] [id number] [address] [place] [address] Aug, [facility] [address] [facility] [id number] [address] [place] [address] Jul, [facility] [address] [facility] [id number] [address] [place] [address] Jun, Gastroenteritis K52.9 [facility] [address] [facility] [id number] [address] [place] [address] Jun, [facility] [address] [facility] [id number] [address] [place] [address] Jun, Attention deficit hyperactiv ity disorder (ADHD), combined type F90.2 [facility] [address] [facility] [id number] [address] [place] [phone] Jun, [facility] [address] [id number] [address] [place] [address] May, 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 [facility] [address] [id number] [address] [place] [address] May, [facility] [address] [id number] [address] [place] [address] Apr, [facility] [address] [id number] [address] [place] [address] Mar, [facility] [address] [id number] [address] [place] [id number] Feb, [facility] [address] [id number] [address] [place] [address] Jan, Poison janneth 692.6 [facility] [address] [id number] [address] [place] [address] Jan, Attention deficit disorder ( ADD) 314.00 [facility] [address] [id number] [address] [place] [address] Jan, [facility] [address] [id number] [address] [place] [address] Jan, Poison janneth dermatitis 692.6 [facility] [address] [facility] [id number] [address] [place] [address] December, [facility] [address] [id number] [address] [place] [address] Nov, [facility] [address] [id number] [address] [place] [address] Nov, [facility] [address] [facility] [id number] [address] [place] [address] Oct, [facility] [address] [id number] [address] [place] [id number] Oct, [facility] [address] [facility] [id number] [address] [place] [address] Oct, [facility] [address] [id number] [address] [place] [address], [place] [address] Oct, [facility] [address] [id number] [address] [place] [address], [place] [address] Oct, [facility] [address] [id number] [address] [place] [address], [place] [address] Oct, [facility] [address] [id number] [address] [place] [address], [place] [address] Oct, [facility] [address] [id number] [address] [place] [address], [place] [address] Oct, [facility] [address] [id number] [address] [place] [address], [place] [address] Sep, [facility] [address] [id number] [address] [place] [address], [place] [address] Sep, [facility] [address] [id number] [address] [place] [address], [place] [address] Aug, [facility] [address] [id number] [address] [place] [address], [place] [address] Aug, [facility] [address] [id number] [address] [place] [address], [place] [address] Aug, [facility] [address] [id number] [address] [place] [address], [place] [address] Aug, [facility] [address] [id number] [address] [place] [address], [place] [address] Aug, [facility] [address] [id number] [address] [place] [address], [place] [address] Aug, [facility] [address] [id number] [address] [place] [address], [place] [address] Jul, [facility] [address] [id number] [address] [place] [address], [place] [address] Jul, [facility] [address] [id number] [address] [place] [address], [place] [address] Jun, [facility] [address] [id number] [address] [place] [address], [place] [address] Jun, [facility] [address] [id number] [address] [place] [address], [place] [address] Jun, [facility] [address] [id number] [address] [place] [address], [place] [address] Jun, [facility] [address] [id number] [address] [place] [address], [place] [address] May, [facility] [address] [id number] [address] [place] [address], [place] [address] May, [facility] [address] [id number] [address] [place] [address], [place] [address] Apr, [facility] [address] [id number] [address] [place] [address], [place] [address] Apr, [facility] [address] [id number] [address] [place] [address], [place] [address] Mar, [facility] [address] [id number] [address] [place] [address], [place] [address] Mar, [facility] [address] [id number] [address] [place] [address], [place] [address] Feb, [facility] [address] [id number] [address] [place] [address], [place] [address] Feb, [facility] [address] [id number] [address] [place] [address], [place] [address] Feb, [facility] [address] [id number] [address] [place] [address], [place] [address] Feb, [facility] [address] [id number] [address] [place] [address], [place] [address] Jan, [facility] [address] [id number] [address] [place] [address], [place] [address] Jan, [facility] [address] [id number] [address] [place] [address], [place] [address] Jan, [facility] [address] [id number] [address] [place] [address], [place] [address] Jan, [facility] [address] [id number] [address] [place] [address], [place] [address] December, [facility] [address] [id number] [address] [place] [address], [place] [address] December, [facility] [address] [id number] [address] [place] [address], [place] [address] December, [facility] [address] [id number] [address] [place] [address], [place] [address] December, [facility] [address] [id number] [address] [place] [address], [place] [address] Nov, [facility] [address] [id number] [address] [place] [address], [place] [address] Nov, [facility] [address] [id number] [address] [place] [address], [place] [address] Oct, [facility] [address] [id number] [address] [place] [address], [place] [address] Oct, [facility] [address] [id number] [address] [place] [address], [place] [address] Sep, [facility] [address] [id number] [address] [place] [address], [place] [address] Sep, [facility] [address] [id number] [address] [place] [address], [place] [address] Aug, [facility] [address] [id number] [address] [place] [address], [place] [address] Aug, [facility] [address] [id number] [address] [place] [address], [place] [address] Jul, [facility] [address] [id number] [address] [place] [address], [place] [address] Jul, [facility] [address] [id number] [address] [place] [address], [place] [address] Jun, [facility] [address] [id number] [address] [place] [address], [place] [address] Jun, [facility] [address] [id number] [address] [place] [address], [place] [address] Jun, [facility] [address] [id number] [address] [place] [address], [place] [address] Jun, [facility] [address] [id number] [address] [place] [address], [place] [address] May, [facility] [address] [id number] [address] [place] [address], [place] [address] May, [facility] [address] [id number] [address] [place] [address], [place] [address] May, [facility] [address] [id number] [address] [place] [address], [place] [address] Apr, [facility] [address] [id number] [address] [place] [address], [place] [address] Mar, [facility] [address] [id number] [address] [place] [address], [place] [address] Mar, [facility] [address] [id number] [address] [place] [address], [place] [address] Mar, [facility] [address] [id number] [address] [place] [address], [place] [address] Mar, [facility] [address] [id number] [address] [place] [address], [place] [address] Feb, [facility] [address] [id number] [address] [place] [address], [place] [address] Feb, [facility] [address] [id number] [address] [place] [address], [place] [address] Feb, [facility] [address] [id number] [address] [place] [address], [place] [address] Jan, [facility] [address] [id number] [address] [place] [address], [place] [address] Jan, [facility] [address] [id number] [address] [place] [address], [place] [address] December, [facility] [address] [id number] [address] [place] [address], [place] [address] Nov, [facility] [address] [id number] [address] [place] [address], [place] [address] Nov, [facility] [address] [id number] [address] [place] [address], [place] [address] Oct, [facility] [address] [id number] [address] [place] [address], [place] [address] Oct, [facility] [address] [id number] [address] [place] [address], [place] [address] Oct, [facility] [address] [id number] [address] [place] [address], [place] [address] Sep, [facility] [address] [id number] [address] [place] [address], [place] [address] Sep, [facility] [address] [id number] [address] [place] [address], [place] [address] Aug, [facility] [address] [id number] [address] [place] [address], [place] [address] Jun, [facility] [address] [id number] [address] [place] [address], [place] [address] Jun, [facility] [address] [id number] [address] [place] [address], [place] [address] Jun, [facility] [address] [id number] [address] [place] [address], [place] [address] Jun, [facility] [address] [id number] [address] [place] [address], [place] [address] Jun, [facility] [address] [id number] [address] [place] [address], [place] [address] Jun, [facility] [address] [id number] [address] [place] [address], [place] [address] Jun, [facility] [address] [id number] [address] [place] [address], [place] [address] Jun, [facility] [address] [id number] [address] [place] [address], [place] [address] May, [facility] [address] [id number] [address] [place] [address], [place] [address] May, [facility] [address] [id number] [address] [place] [address], [place] [address] May, [facility] [address] [id number] [address] [place] [address], [place] [address] May, [facility] [address] [id number] [address] [place] [address], [place] [address] May, [facility] [address] [id number] [address] [place] [address], [place] [address] May, [facility] [address] [id number] [address] [place] [address], [place] [address] Apr, [facility] [address] [id number] [address] [place] [address], [place] [address] Apr, [facility] [address] [id number] [address] [place] [address], [place] [address] Mar, [facility] [address] [id number] [address] [place] [address], [place] [address] Feb, [facility] [address] [id number] [address] [place] [address], [place] [address] Jan, [facility] [address] [id number] [address] [place] [address], [place] [address] December, [facility] [address] [id number] [address] [place] [address] [place] [address] 18 Nov, 2011 [facility] [address] [id number] [address] [place] [address], [place] [address] 24 Oct, 2011 [facility] [address] [id number] [address] [place] [address], [place] [address] 15 Oct, 2011 [facility] [address] [id number] [address] [place] [address], [place] [address] 10 Aug, 2011 [facility] [address] [id number] [address] [place] [address], [place] [address] 22 Jul, 2011 [facility] [address] [id number] [address] [place] [address], [place] [address] 15 Jun, 2011 [facility] [address] [id number] [address] [place] [address], [place] [address] 14 Jun, 2011 [facility] [address] [id number] [address] [place] [address], [place] [address] 31 May, 2011 [facility] [address] [id number] [address] [place] [address], [place] [id number] 31 May, 2011 [facility] [address] [id number] [address] [place] [address], [place] [id number] Aug, [facility] [address] [id number] [address] [place] [address], [place] [id number] 29 Jul, 2010 [facility] [address] [id number] [address] [place] [address], [place] [id number] Jul, [facility] [address] [id number] [address] [place] [address], [place] [id number] Jun, [facility] [address] [id number] [address] [place] [address], [place] [id number] 17 Jun, 2010 [facility] [address] [id number] [address] [place] [address], [place] [id number] 11 Jun, 2010 [facility] [address] [id number] [address] [place] [address], [place] [id number] 04 Jun, 2010 [facility] [address] [facility] [id number] [address] [place] [id number] Jun, [facility] [address] [facility] [id number] [address] [place] [id number] May, [facility] [address] [facility] [id number] [address] [place] [id number] May, [facility] [address] [facility] [id number] [address] [place] [id number] May, IMMUNIZATIONS No Known Immunizations SOCIAL HISTORY Never Assessed REASON FOR VISIT PLAN OF CARE VITAL SIGNS Height 69 in 2013-04-15 Weight 205 lbs 2013-04-15 Temperature 98 degrees Fahrenheit 2013-04-15 Heart Rate 88 bpm 2013-04-15 Respiratory Rate 16 2013-04-15 Blood pressure systolic 118 mmHg 2013-04-15 Blood pressure diastolic 78 mmHg 2013-04-15 MEDICATIONS Unknown Medications RESULTS No Results PROCEDURES No Known procedures INSTRUCTIONS MEDICATIONS ADMINISTERED No Known Medications MEDICAL (GENERAL) HISTORY Type Description Date Medical History attention deficit hyperactivity disorder Medical History Mood disorder Surgical History No Surgical history information Hospitalization History [facility] Pneum[facility] 04/2016
--- OUTSIDE RECORDS SUMMARY | 2020-02-16 14:12 | XMS REPORT ---
Author Author Andrew Garcia Doctor Organization [facility] Address Unknown Phone Unavailable Care Team Providers Care Accounting Generalist Name Role Phone Migration, Doctor Unavailable Unavailable PROBLEMS Type Condition ICD9-CM Code ZSC40-ZA Code Onset Dates Condition S tatus SNOMED Code Problem Attention deficit hyperactivity disorder (ADHD), combi david type F90.2 Active 598297578 Problem Gastroesophageal reflux disease, esophagitis pre sence not specified K21.9 Active 652233325 Problem Gastroesophageal reflux disease, esophagitis pre sence not specified K21.9 Active 305144986 Problem Mood disorder F39 Active 760444 05 Problem Attention deficit hyperactiv ity disorder (ADHD), predominantly inattentive type F90.0 Active 55418164 Problem Adjustment disorder with anxiety F43.22 Active 64334637 Problem Generalized anxiety disorder F41.1 A ctive [id number] ALLERGIES No Information ENCOUNTERS Encounter Location Date Diagnosis [facility] [address] [place] [address] Nov, [facility] [address] [place] [address] Oct, Flu-like symptoms R68.89 [facility] [address] [id number] [address] [place] [address] Oct, Mood disorder F39 [id number] [id number] [id number] Oct, [address] [id number] [address] Oct, [facility] [address] [id number] [address] [place] [address] Sep, Laceration of right index fi nger without foreign body without damage to nail, initial encounter S61.210A [facility] [address] [id number] [address] [place] [address] Aug, [facility] [address] [place] [address] Aug, [facility] [id number] [place] [address] Jul, Laceration of left index fin guerline without foreign body without damage to nail, initial encounter S61.211A and Encounter for immunization Z23 [place] [address] [address] Jul, Abnormal LFTs R94.5 [place] [address] [address] Jul, Abnormal LFTs R94.5 [place] [address] [address] Jul, Gastroesophageal reflux dise ase, esophagitis presence not specified K21.9 and Diarrhea, unspecified type R19.7 [place] [address] [place] [id number] [place] [address] May, Bronchitis J40 [place] [address] [address] May, Attention deficit hyperactiv ity disorder (ADHD), combined type F90.2 [place] [address] [place] [id number] [place] [address] Apr, Adjustment disorder with anx iety F43.22 [place] [address] [place] [id number] [place] [address] Apr, Generalized anxiety disorder F41.1 and Attention deficit hyperactivity disorder (ADHD), combined type F90.2 [place] [address] [place] [id number] [place] [address] Mar, Generalized anxiety disorder F41.1 and Attention deficit hyperactivity disorder (ADHD), combined type F90.2 [place] [address] [place] [id number] [place] [address] Feb, Attention deficit hyperactiv ity disorder (ADHD), combined type F90.2 and Generalized anxiety disorder F41.1 [facility] [address] [id number] [address] [place] [address] Feb, Adjustment disorder with anx iety F43.22 [facility] [address] [id number] [address] [place] [address] Jan, Adjustment disorder with anx iety F43.22 [facility] [id number] [place] [address] Aug, Blood in stool K92.1 and His tory of hemorrhoids Z87.19 [place] [address] [place] [id number] [place] [address] Jul, Attention deficit hyperactiv ity disorder (ADHD), combined type F90.2 [place] [address] [place] [id number] [place] [address] Jul, Attention deficit hyperactiv ity disorder (ADHD), combined type F90.2 and Adjustment disorder with anxiety F43.22 [place] [address] [address] Jun, Bloody stools K92.1 and Acut e bilateral low back pain without sciatica M54.5 [place] [address] [place] [id number] [place] [address] Jun, Attention deficit hyperactiv ity disorder (ADHD), combined type F90.2 [facility] [id number] [place] [address] May, Attention deficit hyperactiv ity disorder (ADHD), combined type F90.2 [place] [address] [place] [id number] [place] [address] Apr, Attention deficit hyperactiv ity disorder (ADHD), combined type F90.2 [place] [id number] [place] [id number] [place] [address] Mar, Attention deficit hyperactiv ity disorder (ADHD), combined type F90.2 [facility] [address] [facility] [id number] [address] [place] [address] Mar, Attention deficit hyperactiv ity disorder (ADHD), combined type F90.2 [facility] [address] [facility] [id number] [address] [place] [address] Mar, Attention deficit hyperactiv ity disorder (ADHD), combined type F90.2 and High risk medication use Z79.899 [facility] [address] [facility] [id number] [address] [place] [address] Mar, Gastroenteritis K52.9 [facility] [address] [facility] [id number] [address] [place] [address] Feb, Attention deficit hyperactiv ity disorder (ADHD), combined type F90.2 [facility] [address] [id number] [place] [address] Jan, Attention deficit hyperactiv ity disorder (ADHD), combined type F90.2 and High risk medication use Z79.899 [place] [address] [place], [place] [address] 57 13 Sep, 2017 Acute cystitis without hematuria N30.00 and Acute suppurative otitis media of left ear with spontaneous rupture of tympanic membrane, recurrence not specified H66.[address] [id number] Jul, Seborrheic keratoses L82.1 and Mood disorder F39 [address] [id number] Jul, Attention deficit hyperactivity disorder (ADHD), predominantly inattentive type F90.[address] [id number] Jul, Mood disorder F39 [facility] [address] [facility] [id number] [address] [place] [address] Sep, [facility] [address] [id number] [place] [address] Aug, [facility] [address] [id number] [address] [place] [address] Jul, [facility] [address] [id number] [address] [place] [address] Jul, [facility] [address] [id number] [address] [place] [address] Jun, Attention deficit hyperactiv ity disorder (ADHD), combined type F90.2 [facility] [address] [id number] [address] [place] [address] May, [facility] [address] [id number] [address] [place] [address] Apr, Attention deficit hyperactiv ity disorder (ADHD), combined type F90.2 [facility] [address] [id number] [address] [place] [address] Mar, Acute non-recurrent maxillar y sinusitis J01.00 [facility] [address] [id number] [address] [place] [address] Mar, Acute non-recurrent maxillar y sinusitis J01.00 [facility] [address] [id number] [address] [place] [address] Mar, [facility] [address] [facility] [id number] [address] [place] [address] Feb, Gastroenteritis K52.9 [facility] [address] [id number] [address] [place] [address] Feb, [facility] [address] [id number] [address] [place] [address] Jan, [facility] [address] [facility] [id number] [address] [place] [address] December, [facility] [address] [facility] [id number] [address] [place] [address] December, Rash R21 [facility] [address] [id number] [address] [place] [address] Nov, [facility] [address] [facility] [id number] [address] [place] [address] Nov, [facility] [address] [facility] [id number] [address] [place] [address] Oct, [facility] [address] [facility] [id number] [address] [place] [address] Oct, Attention deficit hyperactiv ity disorder (ADHD), combined type F90.2 [facility] [address] [facility] [id number] [address] [place] [address] Sep, [facility] [address] [facility] [id number] [address] [place] [address] Sep, Viral syndrome B34.9 and HSV (herpes simplex virus) infection B00.9 [facility] [address] [facility] [id number] [address] [place] [address] Aug, [facility] [address] [facility] [id number] [address] [place] [address] Aug, [facility] [address] [facility] [id number] [address] [place] [address] Jul, [facility] [address] [facility] [id number] [address] [place] [address] Jun, Gastroenteritis K52.9 [facility] [address] [facility] [id number] [address] [place] [address] Jun, [facility] [address] [facility] [id number] [address] [place] [address] Jun, Attention deficit hyperactiv ity disorder (ADHD), combined type F90.2 [facility] [address] [facility] [id number] [address] [place] [address] Jun, [facility] [address] [facility] [id number] [address] [place] [address] May, 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 [facility] [address] [id number] [address] [place] [address] 09 May, 2015 [facility] [address] [id number] [address] [place] [address] 08 Apr, 2015 [facility] [address] [id number] [address] [place] [address] Mar, [facility] [address] [id number] [address] [place] [address] Feb, [facility] [address] [id number] [address] [place] [address] Jan, Poison janneth 692.6 [facility] [address] [id number] [address] [place] [address] 17 Jan, 2015 Attention deficit disorder ( ADD) 314.00 [facility] [address] [id number] [address] [place] [address] Jan, [facility] [address] [id number] [address] [place] [address] Jan, Poison janneth dermatitis 692.6 [facility] [address] [id number] [address] [place] [address] December, [facility] [address] [id number] [address] [place] [address] 14 Nov, 2014 [facility] [address] [id number] [address] [place] [address] Nov, [facility] [address] [id number] [address] [place] [address] Oct, [facility] [address] [id number] [address] [place] [address] Oct, [facility] [address] [id number] [address] [place] [address] Oct, [facility] [address] [id number] [address] [place] [address] Oct, [facility] [address] [id number] [address] [place] [address], [place] [address] Oct, [facility] [address] [id number] [address] [place] [address], [place] [address] Oct, [facility] [address] [id number] [address] [place] [address], [place] [address] Oct, [facility] [address] [id number] [address] [place] [address], [place] [address] Oct, [facility] [address] [id number] [address] [place] [address], [place] [address] Sep, [facility] [address] [id number] [address] [place] [address], [place] [address] Sep, [facility] [address] [id number] [address] [place] [address], [place] [address] Aug, [facility] [address] [id number] [address] [place] [address], [place] [address] Aug, [facility] [address] [id number] [address] [place] [address], [place] [address] Aug, [facility] [address] [id number] [address] [place] [address], [place] [address] Aug, [facility] [address] [id number] [address] [place] [address], [place] [address] Aug, [facility] [address] [id number] [address] [place] [address] Aug, [facility] [address] [id number] [address] [place] [address], [place] [address] Jul, [facility] [address] [id number] [address] [place] [address], [place] [address] Jul, [facility] [address] [id number] [address] [place] [address], [place] [address] Jun, [facility] [address] [id number] [address] [place] [address], [place] [address] Jun, [facility] [address] [id number] [address] [place] [address], [place] [address] Jun, [facility] [address] [id number] [address] [place] [address], [place] [address] Jun, [facility] [address] [id number] [address] [place] [address], [place] [address] May, [facility] [address] [id number] [address] [place] [address], [place] [address] May, [facility] [address] [id number] [address] [place] [address], [place] [address] Apr, [facility] [address] [id number] [address] [place] [address], [place] [address] Apr, [facility] [address] [id number] [address] [place] [address], [place] [address] Mar, [facility] [address] [id number] [address] [place] [address], [place] [address] Mar, [facility] [address] [id number] [address] [place] [address], [place] [address] Feb, [facility] [address] [id number] [address] [place] [address], [place] [address] Feb, [facility] [address] [id number] [address] [place] [address], [place] [address] Feb, [facility] [address] [id number] [address] [place] [address], [place] [address] Feb, [facility] [address] [id number] [address] [place] [address], [place] [address] Jan, [facility] [address] [id number] [address] [place] [address], [place] [address] Jan, [facility] [address] [id number] [address] [place] [address], [place] [address] Jan, [facility] [address] [id number] [address] [place] [address], [place] [address] Jan, [facility] [address] [id number] [address] [place] [address], [place] [address] December, [facility] [address] [id number] [address] [place] [address], [place] [address] December, [facility] [address] [id number] [address] [place] [address], [place] [address] December, [facility] [address] [id number] [address] [place] [address], [place] [address] December, [facility] [address] [id number] [address] [place] [address], [place] [address] Nov, [facility] [address] [id number] [address] [place] [address], [place] [address] Nov, [facility] [address] [id number] [address] [place] [address], [place] [address] Oct, [facility] [address] [id number] [address] [place] [address], [place] [address] Oct, [facility] [address] [id number] [address] [place] [address], [place] [address] Sep, [facility] [address] [id number] [address] [place] [address], [place] [address] Sep, [facility] [address] [id number] [address] [place] [address], [place] [address] Aug, [facility] [address] [id number] [address] [place] [address], [place] [address] Aug, [facility] [address] [id number] [address] [place] [address], [place] [address] Jul, [facility] [address] [id number] [address] [place] [address], [place] [address] Jul, [facility] [address] [id number] [address] [place] [address], [place] [address] Jun, [facility] [address] [id number] [address] [place] [address], [place] [address] Jun, [facility] [address] [id number] [address] [place] [address], [place] [address] Jun, [facility] [address] [id number] [address] [place] [address], [place] [address] Jun, [facility] [address] [id number] [address] [place] [address], [place] [address] May, [facility] [address] [id number] [address] [place] [address], [place] [address] May, [facility] [address] [id number] [address] [place] [address], [place] [address] May, [facility] [address] [id number] [address] [place] [address], [place] [address] Apr, [facility] [address] [id number] [address] [place] [address], [place] [address] Mar, [facility] [address] [id number] [address] [place] [address], [place] [address] Mar, [facility] [address] [id number] [address] [place] [address], [place] [address] Mar, [facility] [address] [id number] [address] [place] [address], [place] [address] Mar, [facility] [address] [id number] [address] [place] [address], [place] [address] Feb, [facility] [address] [id number] [address] [place] [address], [place] [address] Feb, [facility] [address] [id number] [address] [place] [address], [place] [address] Feb, [facility] [address] [id number] [address] [place] [address], [place] [address] Jan, [facility] [address] [id number] [address] [place] [address], [place] [address] 04 Jan, 2013 [facility] [address] [id number] [address] [place] [address], [place] [address] December, [facility] [address] [id number] [address] [place] [address], [place] [address] Nov, [facility] [address] [id number] [address] [place] [address], [place] [address] Nov, [facility] [address] [id number] [address] [place] [address], [place] [address] Oct, [facility] [address] [id number] [address] [place] [address], [place] [address] Oct, [facility] [address] [id number] [address] [place] [address], [place] [address] Oct, [facility] [address] [id number] [address] [place] [address], [place] [address] Sep, [facility] [address] [id number] [address] [place] [address], [place] [address] Sep, [facility] [address] [id number] [address] [place] [address], [place] [address] Aug, [facility] [address] [id number] [address] [place] [address], [place] [address] Jun, [facility] [address] [id number] [address] [place] [address], [place] [address] Jun, [facility] [place] [facility] [address] [id number] [address] [place] [address], [place] [address] Jun, [facility] [address] [id number] [address] [place] [address], [place] [address] Jun, [facility] [address] [id number] [address] [place] [address], [place] [address] Jun, [facility] [place] [facility] [address] [id number] [address] [place] [address], [place] [address] Jun, [facility] [address] [id number] [address] [place] [address], [place] [address] Jun, [facility] [address] [id number] [address] [place] [address], [place] [address] Jun, [facility] [address] [id number] [address] [place] [address], [place] [address] May, [facility] [address] [id number] [address] [place] [address], [place] [address] May, [facility] [address] [id number] [address] [place] [address], [place] [address] May, [facility] [address] [id number] [address] [place] [address], [place] [address] May, [facility] [address] [id number] [address] [place] [address], [place] [address] May, [facility] [address] [id number] [address] [place] [address], [place] [address] May, [facility] [address] [id number] [address] [place] [address], [place] [address] Apr, [facility] [address] [id number] [address] [place] [address] Apr, [facility] [address] [id number] [address] [place] [address] Mar, [facility] [address] [id number] [address] [place] [address] Feb, [facility] [address] [id number] [address] [place] [address], [place] [address] Jan, [facility] [address] [id number] [address] [place] [address], [place] [address] December, [facility] [address] [id number] [address] [place] [address], [place] [address] Nov, [facility] [address] [id number] [address] [place] [address] 24 Oct, 2011 [facility] [address] [id number] [address] [place] [address], [place] [address] 15 Oct, 2011 [facility] [address] [id number] [address] [place] [address], [place] [address] 10 Aug, 2011 [facility] [address] [id number] [address] [place] [address], [place] [address] 22 Jul, 2011 [facility] [address] [id number] [address] [place] [address], [place] [address] 15 Jun, 2011 [facility] [address] [id number] [address] [place] [address], [place] [address] 14 Jun, 2011 [facility] [address] [id number] [address] [place] [address], [place] [address] 31 May, 2011 [facility] [address] [id number] [address] [place] [address], [place] [address] 31 May, 2011 [facility] [address] [id number] [address] [place] [address], [place] [address] Aug, [facility] [address] [id number] [address] [place] [address], [place] [address] 29 Jul, 2010 [facility] [address] [id number] [address] [place] [address], [place] [address] Jul, [facility] [address] [id number] [address] [place] [address], [place] [address] Jun, [facility] [facility] [address] [id number] [address] [place] [address], [place] [address] 17 Jun, 2010 [facility] [address] [id number] [address] [place] [address], [place] [address] Jun, [facility] [address] [id number] [address] [place] [address], [place] [address] 04 Jun, 2010 [facility] [address] [id number] [address] [place] [address], [place] [address] Jun, [facility] [address] [facility] [id number] [address] [place] [address] 18 May, 2010 [facility] [address] [facility] [id number] [address] [place] [address] May, [facility] [address] [facility] [id number] [address] [place] [address] May, IMMUNIZATIONS No Known Immunizations SOCIAL HISTORY [...]
--- OUTSIDE RECORDS SUMMARY | 2020-02-16 14:13 | XMS REPORT ---
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 Name Role Phone Migration, Doctor Unavailable Unavailable PROBLEMS Type Condition ICD9-CM Code [id number] Code Onset Dates Condition S tatus SNOMED Code Problem Attention deficit hyperactivity disorder (ADHD), combi david type F90.2 Active 685971843 Problem Gastroesophageal reflux disease, esophagitis pre sence not specified K21.9 Active 597808109 Problem Gastroesophageal reflux disease, esophagitis pre sence not specified K21.9 Active 648423899 Problem Mood disorder F39 Active 546791 [id number] Problem Attention deficit hyperactiv ity disorder (ADHD), predominantly inattentive type F90.0 Active 75431252 Problem Adjustment disorder with anxiety F43.22 Active 30151294 Problem Generalized anxiety disorder F41.1 A ctive [id number] ALLERGIES No Information ENCOUNTERS Encounter Location Date Diagnosis [facility] [address] [address] Nov, [facility] [address] [address] Oct, Mood disorder F39 [facility] [id number] [place] [id number] Oct, [id number] [place] [address] Oct, [facility] [address] [facility] [id number] [place] [address] Sep, Laceration of right index fi nger without foreign body without damage to nail, initial encounter S61.210A [facility] [id number] [place] [address] Aug, [facility] [address] [address] Aug, [facility] [address] [facility] [id number] [address] [place] [address] Jul, Laceration of left index fin guerline without foreign body without damage to nail, initial encounter S61.211A and Encounter for immunization Z23 [facility] [address] [address] Jul, Abnormal LFTs R94.5 [place] [address] [place] [address] Jul, Abnormal LFTs R94.5 [place] [address] [address] Jul, Gastroesophageal reflux disease, esophag itis presence not specified K21.9 and Diarrhea, unspecified type R19.7 [place] [address] [address] May, Bronchitis J40 [place] [address] [address] May, Attention deficit hyperactivity disorder (ADHD), combined type F90.2 [place] [address] [address] Apr, Adjustment disorder with anxiety F43.22 [place] [address] [address] Apr, Generalized anxiety disorder F41.1 and A ttention deficit hyperactivity disorder (ADHD), combined type F90.2 [place] [address] [address] Mar, Generalized anxiety disorder F41.1 and A ttention deficit hyperactivity disorder (ADHD), combined type F90.2 [place] [address] [address] Feb, Attention deficit hyperactivity disorder (ADHD), combined type F90.2 and Generalized anxiety disorder F41.1 [place] [address] [address] Feb, Adjustment disorder with anxiety F43.22 [place] [address] [address] 03 Jan, 2019 Adjustment disorder with anxiety F43.22 [place] [address] [address] 02 Aug, 2018 Blood in stool K92.1 and History of hemo rrhoids Z87.19 [place] [address] [address] Jul, Attention deficit hyperactivity disorder (ADHD), combined type F90.2 [place] [address] [address] Jul, Attention deficit hyperactivity disorder (ADHD), combined type F90.2 and Adjustment disorder with anxiety F43.22 [place] [address] [address] 26 Jun, 2018 Bloody stools K92.1 and Acute bilateral low back pain without sciatica M54.5 [place] [address] [address] 08 Jun, 2018 Attention deficit hyperactivity disorder (ADHD), combined type F90.2 [place] [address] [address] 15 May, 2018 Attention deficit hyperactivity disorder (ADHD), combined type F90.2 [place] [address] [address] 10 Apr, 2018 Attention deficit hyperactivity disorder (ADHD), combined type F90.2 [place] [address] [address] Mar, Attention deficit hyperactivity disorder (ADHD), combined type F90.2 [place] [address] [address] 14 Mar, 2018 Attention deficit hyperactivity disorder (ADHD), combined type F90.2 [place] [address] [address] Mar, Attention deficit hyperactivity disorder (ADHD), combined type F90.2 and High risk medication use Z79.899 [facility] [address] [address] Mar, Gastroenteritis K52.9 [facility] [address] [address] Feb, Attention deficit hyperactivity disorder (ADHD), combined type F90.2 [facility] [address] [address] Jan, Attention deficit hyperactivity disorder (ADHD), combined type F90.2 and High risk medication use Z79.899 [address] [place], [place] [address] 13 Sep, 2017 Acute cystitis without hematuria N30.00 and Acute suppurative otitis media of left ear with spontaneous rupture of tympanic membrane, recurrence not specified H66.012 [address] [place], [place] [id number] 57 Jul, Seborrheic keratoses L82.1 and Mood disorder F39 [address] [id number] Jul, Attention deficit hyperactivity disorder (ADHD), predominantly inattentive type F90.[address] [id number] Jul, Mood disorder F39 [facility] [address] [address] Sep, [facility] [address] [address] Aug, [facility] [address] [address] Jul, [facility] [address] [address] Jul, [facility] [address] [address] Jun, Attention deficit hyperactivity disorder (ADHD), combined type F90.2 [facility] [address] [address] May, [facility] [address] [place] [address] Apr, Attention deficit hyperactivity disorder (ADHD), combined type F90.2 [facility] [id number] [place] [address] Mar, Acute non-recurrent maxillary sinusitis J01.00 [facility] [address] [facility] [id number] [address] [place] [address] Mar, Acute non-recurrent maxillar y sinusitis J01.00 [facility] [id number] [place] [address] Mar, [facility] [address] [facility] [id number] [place] [address] Feb, Gastroenteritis K52.9 [facility] [id number] [place] [address] Feb, [facility] [id number] [place] [address] Jan, [facility] [id number] [place] [address] December, [facility] [id number] [place] [address] December, Rash R21 [facility] [id number] [place] [address] Nov, [facility] [id number] [place] [address] Nov, [facility] [id number] [place] [address] Oct, [facility] [id number] [place] [address] Oct, Attention deficit hyperactivity disorder (ADHD), combined type F90.2 [facility] [id number] [place] [address] Sep, [facility] [id number] [place] [address] Sep, Viral syndrome B34.9 and HSV (herpes sim plex virus) infection B00.9 [facility] [address] [address] Aug, [facility] [address] [address] Aug, [facility] [address] [address] Jul, [facility] [address] [address] Jun, Gastroenteritis K52.9 [place] [address] [address] Jun, [place] [address] [address] Jun, Attention deficit hyperactivity disorder (ADHD), combined type F90.2 [place] [address] [address] Jun, [facility] [address] [address] May, 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6 [facility] [address] [id number] [place] [address] December, [facility] [address] [id number] [place] [address] 14 Nov, 2014 [facility] [address] [id number] [place] [address] Nov, [facility] [address] [id number] [place] [address] Oct, [facility] [id number] [place] [address] Oct, [facility] [id number] [place] [address] Oct, [facility] [address] [id number] [place] [address] Oct, [facility] [address] [id number] [place] [address] Oct, [facility] [address] [id number] [place] [address] Oct, [facility] [address] [id number] [place] [address] Oct, [facility] [address] [id number] [place] [address] Oct, [facility] [address] [id number] [place] [address] Sep, [facility] [id number] [place] [address] Sep, [facility] [address] [id number] [place] [address] Aug, [facility] [id number] [place] [address] Aug, [facility] [address] [facility] [id number] [place] [address] Aug, [facility] [address] [id number] [place] [address] Aug, [facility] [address] [id number] [place] [address] Aug, [facility] [address] [id number] [place] [address] Aug, [facility] [address] [id number] [place] [address] Jul, [facility] [address] [id number] [place] [address] Jul, [facility] [address] [id number] [place] [address] Jun, [facility] [address] [id number] [place] [address] Jun, [facility] [address] [id number] [place] [address] Jun, [facility] [address] [id number] [place] [address] Jun, [facility] [address] [id number] [place] [address] May, [facility] [address] [id number] [place] [address] May, [facility] [address] [id number] [place] [address] Apr, [facility] [address] [id number] [place] [address] Apr, [facility] [address] [id number] [place] [address] Mar, [facility] [address] [id number] [place] [address] Mar, [facility] [address] [id number] [facility] [place] [address] Feb, [facility] [address] [id number] [facility] [place] [address] Feb, [facility] [address] [facility] [id number] [place] [address] Feb, [facility] [address] [id number] [place] [address] Feb, [facility] [address] [id number] [place] [address] Jan, [facility] [address] [id number] [place] [address] Jan, [facility] [address] [id number] [place] [address] Jan, [facility] [address] [id number] [place] [address] Jan, [facility] [address] [id number] [place] [address] December, [facility] [address] [id number] [place] [address] December, [facility] [address] [id number] [place] [address] December, [facility] [address] [id number] [place] [address] December, [facility] [address] [id number] [place] [address] Nov, [facility] [address] [id number] [place] [address] Nov, [facility] [address] [id number] [place] [address] Oct, [facility] [address] [id number] [place] [address] Oct, [facility] [address] [id number] [place] [address] Sep, [facility] [address] [id number] [place] [address] Sep, [facility] [address] [id number] [place] [address] Aug, [facility] [address] [id number] [place] [address] Aug, [facility] [id number] [place] [address] Jul, [facility] [address] [id number] [place] [address] Jul, [facility] [address] [id number] [place] [address] Jun, [facility] [address] [id number] [place] [address] Jun, [facility] [id number] [place] [address] Jun, [facility] [address] [id number] [place] [address] Jun, [facility] [address] [id number] [place] [address] May, [facility] [address] [id number] [place] [address] May, [facility] [address] [id number] [place] [address] May, [facility] [address] [id number] [place] [address] Apr, [facility] [address] [id number] [place] [address] Mar, [facility] [address] [id number] [place] [address] Mar, [facility] [address] [id number] [place] [address] Mar, [facility] [address] [id number] [place] [address] Mar, [facility] [address] [id number] [facility] [place] [address] Feb, [facility] [address] [id number] [facility] [place] [address] Feb, [facility] [address] [id number] [place] [address] Feb, [facility] [address] [id number] [place] [address] Jan, [facility] [address] [id number] [place] [address] Jan, [facility] [address] [id number] [place] [address] December, [facility] [address] [id number] [place] [address] Nov, [facility] [address] [id number] [place] [address] Nov, [facility] [address] [id number] [place] [address] Oct, [facility] [address] [id number] [place] [address] Oct, [facility] [address] [id number] [place] [address] Oct, [facility] [address] [id number] [place] [address] Sep, [facility] [address] [id number] [place] [address] Sep, [facility] [address] [id number] [place] [address] Aug, [facility] [address] [id number] [place] [address] Jun, [facility] [address] [id number] [place] [address] Jun, [facility] [address] [id number] [place] [address] Jun, [facility] [address] [id number] [place] [address] Jun, [facility] [address] [id number] [place] [address] Jun, [facility] [id number] [place] [address] Jun, [facility] [address] [id number] [place] [address] Jun, [facility] [address] [id number] [place] [address] Jun, [facility] [address] [id number] [place] [address] May, [facility] [id number] [place] [address] May, [facility] [id number] [place] [address] May, [facility] [address] [id number] [place] [address] May, [facility] [address] [id number] [place] [address] May, [facility] [address] [id number] [place] [address] May, [facility] [address] [id number] [place] [address] Apr, [facility] [address] [id number] [place] [address] Apr, [facility] [id number] [place] [address] Mar, [facility] [address] [id number] [place] [address] Feb, [facility] [id number] [place] [address] Jan, [facility] [address] [id number] [place] [address] December, [facility] [address] [id number] [place] [address] 18 Nov, 2011 [facility] [address] [id number] [place] [address] 24 Oct, 2011 [facility] [address] [id number] [place] [address] 15 Oct, 2011 [facility] [address] [id number] [place] [address] Aug, [facility] [address] [id number] [place] [address] Jul, [facility] [address] [id number] [place] [address] 15 Jun, 2011 [facility] [address] [id number] [place] [address] 14 Jun, 2011 [facility] [address] [id number] [place] [address] May, [facility] [address] [id number] [place] [address] May, [facility] [address] [id number] [place] [address] Aug, [facility] [address] [id number] [place] [address] Jul, [facility] [address] [id number] [place] [address] Jul, [facility] [address] [id number] [place] [address] Jun, [facility] [address] [id number] [place] [address] 17 Jun, 2010 [facility] [address] [id number] [place] [address] Jun, [facility] [address] [id number] [place] [address] Jun, [facility] [address] [id number] [place] [address] Jun, [facility] [address] [id number] [place] [address] May, [facility] [address] [id number] [place] [address] May, [facility] [address] [id number] [place] [address] May, IMMUNIZATIONS No Known Immunizations SOCIAL HISTORY [...]
--- OUTSIDE RECORDS SUMMARY | 2020-02-16 14:13 | XMS REPORT ---
Author Author Andrew Garcia Doctor Organization [facility] Address Unknown Phone Unavailable Care Team Providers Care Snap Shearer Name Role Phone Migration, Doctor Unavailable Unavailable PROBLEMS Type Condition ICD9-CM Code AUR24-AU Code Onset Dates Condition S tatus SNOMED Code Problem Attention deficit hyperactivity disorder (ADHD), combi david type F90.2 Active 296139524 Problem Gastroesophageal reflux disease, esophagitis pre sence not specified K21.9 Active 877349670 Problem Gastroesophageal reflux disease, esophagitis pre sence not specified K21.9 Active 692665429 Problem Mood disorder F39 Active 493593 05 Problem Attention deficit hyperactiv ity disorder (ADHD), predominantly inattentive type F90.0 Active 96396890 Problem Adjustment disorder with anxiety F43.22 Active 01986120 Problem Generalized anxiety disorder F41.1 A ctive [id number] ALLERGIES No Information ENCOUNTERS Encounter Location Date Diagnosis [place] [address] [address] Oct, [facility] [address] [place] [id number] [place] [address] Sep, Laceration of right index fi nger without foreign body without damage to nail, initial encounter S61.210A [place] [address] [address] 15 Aug, 2019 [place] [address] [address] Aug, [facility] [address] [place] [address] Jul, Laceration of left index fin guerline without foreign body without damage to nail, initial encounter S61.211A and Encounter for immunization Z23 [place] [address] [address] 09 Jul, 2019 Abnormal LFTs R94.5 [place] [address] [address] Jul, Abnormal LFTs R94.5 [place] [address] [address] Jul, Gastroesophageal reflux disease, esophag itis presence not specified K21.9 and Diarrhea, unspecified type R19.7 [place] [address] [address] May, Bronchitis J40 [place] [address] [address] May, Attention deficit hyperactivity disorder (ADHD), combined type F90.2 [place] [address] [place] [id number] Apr, Adjustment disorder with anxiety F43.[address] [address] Apr, Generalized anxiety disorder F41.1 and A ttention deficit hyperactivity disorder (ADHD), combined type F90.2 [place] [address] [address] Mar, Generalized anxiety disorder F41.1 and A ttention deficit hyperactivity disorder (ADHD), combined type F90.2 [place] [address] [address] Feb, Attention deficit hyperactivity disorder (ADHD), combined type F90.2 and Generalized anxiety disorder F41.1 [place] [address] [address] Feb, Adjustment disorder with anxiety F43.22 [place] [address] [address] Jan, Adjustment disorder with anxiety F43.22 [place] [address] [address] Aug, Blood in stool K92.1 and History of hemo rrhoids Z87.19 [place] [address] [address] Jul, Attention deficit hyperactivity disorder (ADHD), combined type F90.2 [facility] [address] [address] 19 Jul, 2018 Attention deficit hyperactivity disorder (ADHD), combined type F90.2 and Adjustment disorder with anxiety F43.22 [facility] [address] [address] 26 Jun, 2018 Bloody stools K92.1 and Acute bilateral low back pain without sciatica M54.5 [facility] [address] [address] 08 Jun, 2018 Attention deficit hyperactivity disorder (ADHD), combined type F90.2 [facility] [address] [address] 15 May, 2018 Attention deficit hyperactivity disorder (ADHD), combined type F90.2 [place] [address] [address] 10 Apr, 2018 Attention deficit hyperactivity disorder (ADHD), combined type F90.2 [facility] [address] [address] 27 Mar, 2018 Attention deficit hyperactivity disorder (ADHD), combined type F90.2 [place] [address] [address] 14 Mar, 2018 Attention deficit hyperactivity disorder (ADHD), combined type F90.2 [facility] [address] [address] 14 Mar, 2018 Attention deficit hyperactivity disorder (ADHD), combined type F90.2 and High risk medication use Z79.899 [facility] [address] [address] 14 Mar, 2018 Gastroenteritis K52.9 [facility] [address] [address] Feb, Attention deficit hyperactivity disorder (ADHD), combined type F90.2 [facility] [address] [place] [address] [place] [address] Jan, Attention deficit hyperactivity disorder (ADHD), combined type F90.2 and High risk medication use Z79.899 [place] [address] [place], [place] [id number] 57 13 Sep, 2017 Acute cystitis without hematuria N30.00 and Acute suppurative otitis media of left ear with spontaneous rupture of tympanic membrane, recurrence not specified H66.[address] [id number] Jul, Seborrheic keratoses L82.1 and Mood disorder F39 [address] [id number] 57 Jul, Attention deficit hyperactivity disorder (ADHD), predominantly inattentive type F90.[address] [id number] 57 Jul, Mood disorder F39 [facility] [address] [address] Sep, [facility] [address] [address] Aug, [facility] [address] [address] Jul, [facility] [address] [address] Jul, [facility] [address] [address] Jun, Attention deficit hyperactivity disorder (ADHD), combined type F90.2 [facility] [address] [address] May, [facility] [address] [address] Apr, Attention deficit hyperactivity disorder (ADHD), combined type F90.2 [facility] [address] [place] [id number] [place] [address] Mar, Acute non-recurrent maxillary sinusitis J01.00 [facility] [address] [facility] [id number] [address] [address] Mar, Acute non-recurrent maxillar y sinusitis J01.00 [facility] [address] [place] [id number] [place] [address] Mar, [facility] [address] [facility] [id number] [address] [place] [address] Feb, Gastroenteritis K52.9 [facility] [address] [address] Feb, [facility] [address] [address] Jan, [facility] [address] [address] December, [facility] [address] [address] December, Rash R21 [facility] [address] [address] Nov, [facility] [address] [address] Nov, [facility] [address] [address] Oct, [facility] [address] [address] Oct, Attention deficit hyperactivity disorder (ADHD), combined type F90.2 [facility] [address] [address] Sep, [facility] [address] [address] Sep, Viral syndrome B34.9 and HSV (herpes sim plex virus) infection B00.9 [facility] [address] [address] Aug, [facility] [address] [address] Aug, [facility] [address] [place] [address] [place] [address] Jul, [facility] [address] [address] Jun, Gastroenteritis K52.9 [facility] [address] [address] Jun, [facility] [address] [address] Jun, Attention deficit hyperactivity disorder (ADHD), combined type F90.2 [facility] [address] [address] Jun, [facility] [address] [address] May, 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 [facility] [address] [address] May, [facility] [address] [address] Apr, [facility] [address] [address] Mar, [facility] [address] [address] Feb, [facility] [address] [address] Jan, Poison janneth 692.6 [facility] [address] [address] Jan, Attention deficit disorder (ADD) 314.00 [facility] [address] [address] Jan, [facility] [address] [address] Jan, Poison janneth dermatitis 692.6 [facility] [address] [address] December, [facility] [address] [place] [id number] [place] [address] 14 Nov, 2014 [facility] [address] [facility] [id number] [place] [address] 13 Nov, 2014 [facility] [address] [id number] [place] [address] 13 Oct, 2014 [facility] [address] [id number] [place] [address] Oct, [facility] [address] [id number] [place] [address] Oct, [facility] [address] [id number] [place] [address] Oct, [facility] [address] [id number] [place] [address] Oct, [facility] [address] [id number] [place] [address] Oct, [facility] [address] [id number] [place] [address] Oct, [facility] [address] [id number] [place] [address] Oct, [facility] [address] [id number] [place] [address] Sep, [facility] [address] [id number] [place] [address] Sep, [facility] [address] [id number] [place] [address] Aug, [facility] [address] [id number] [place] [address] Aug, [facility] [address] [id number] [place] [address] Aug, [facility] [address] [id number] [place] [address] Aug, [facility] [address] [id number] [place] [address] Aug, [facility] [address] [id number] [place] [address] Aug, [facility] [address] [id number] [place] [address] Jul, [facility] [address] [id number] [place] [address] Jul, [facility] [address] [id number] [place] [address] Jun, [facility] [address] [id number] [place] [address] Jun, [facility] [address] [id number] [place] [address] Jun, [facility] [address] [id number] [place] [address] Jun, [facility] [address] [id number] [place] [address] May, [facility] [address] [id number] [place] [address] May, [facility] [address] [id number] [place] [address] Apr, [facility] [address] [id number] [place] [address] Apr, [facility] [address] [id number] [place] [address] Mar, [facility] [address] [id number] [place] [address] Mar, [facility] [address] [id number] [place] [address] Feb, [facility] [address] [id number] [place] [address] Feb, [facility] [address] [id number] [place] [address] Feb, [facility] [address] [id number] [place] [address] Feb, [facility] [address] [facility] [id number] [facility] [address] Jan, [facility] [address] [id number] [facility] [place] [address] Jan, [facility] [address] [id number] [place] [address] Jan, [facility] [address] [id number] [place] [address] Jan, [facility] [address] [id number] [facility] [place] [address] December, [facility] [address] [id number] [place] [address] December, [facility] [address] [id number] [place] [address] December, [facility] [address] [id number] [place] [address] December, [facility] [address] [id number] [place] [address] Nov, [facility] [address] [id number] [place] [address] Nov, [facility] [address] [id number] [place] [address] Oct, [facility] [address] [id number] [place] [address] Oct, [facility] [address] [id number] [place] [address] Sep, [facility] [address] [id number] [place] [address] Sep, [facility] [address] [id number] [place] [address] Aug, [facility] [address] [id number] [place] [address] Aug, [facility] [address] [id number] [place] [address] Jul, [facility] [address] [id number] [place] [address] Jul, [facility] [address] [id number] [place] [address] Jun, [facility] [address] [id number] [place] [address] Jun, [facility] [address] [id number] [place] [address] Jun, [facility] [address] [id number] [place] [address] Jun, [facility] [address] [id number] [place] [address] May, [facility] [address] [id number] [place] [address] May, [facility] [address] [id number] [place] [address] May, [facility] [address] [id number] [place] [address] Apr, [facility] [address] [id number] [place] [address] Mar, [facility] [address] [id number] [place] [address] Mar, [facility] [address] [id number] [place] [address] Mar, [facility] [address] [id number] [place] [address] Mar, [facility] [address] [id number] [place] [address] Feb, [facility] [address] [id number] [place] [address] Feb, [facility] [address] [id number] [place] [address] Feb, [facility] [address] [id number] [place] [address] Jan, [facility] [address] [id number] [place] [address] Jan, [facility] [address] [id number] [place] [address] December, [facility] [address] [id number] [place] [address] Nov, [facility] [address] [id number] [place] [address] Nov, [facility] [address] [id number] [place] [address] Oct, [facility] [address] [id number] [place] [address] Oct, [facility] [address] [place] [id number] [place] [address] Oct, [facility] [address] [id number] [place] [address] Sep, [facility] [address] [id number] [place] [address] Sep, [facility] [address] [id number] [place] [address] Aug, [facility] [address] [place] [id number] [place] [address] Jun, [facility] [address] [id number] [place] [address] Jun, [facility] [address] [id number] [place] [address] Jun, [facility] [address] [id number] [place] [address] Jun, [facility] [address] [id number] [place] [address] Jun, [facility] [address] [id number] [place] [address] Jun, [facility] [address] [id number] [place] [address] Jun, [facility] [address] [id number] [place] [address] Jun, [facility] [address] [id number] [place] [address] May, [facility] [address] [id number] [place] [address] May, [facility] [address] [id number] [place] [address] May, [facility] [address] [id number] [place] [address] May, [facility] [id number] [place] [address] May, [facility] [address] [id number] [place] [address] May, [facility] [address] [id number] [place] [address] Apr, [facility] [address] [id number] [place] [address] Apr, [facility] [address] [id number] [place] [address] Mar, [facility] [address] [id number] [place] [address] Feb, [facility] [address] [id number] [place] [address] Jan, [facility] [id number] [place] [address] December, [facility] [address] [id number] [place] [address] Nov, [facility] [address] [id number] [place] [address] Oct, [facility] [address] [id number] [place] [address] 15 Oct, 2011 [facility] [address] [id number] [place] [address] 10 Aug, 2011 [facility] [address] [id number] [place] [address] 22 Jul, 2011 [facility] [address] [id number] [place] [address] 15 Jun, 2011 [facility] [address] [id number] [place] [address] 14 Jun, 2011 [facility] [address] [id number] [place] [address] 31 May, 2011 [facility] [address] [id number] [place] [address] 31 May, 2011 [facility] [address] [id number] [place] [address] Aug, [facility] [address] [id number] [place] [address] 29 Jul, 2010 [facility] [address] [id number] [place] [address] Jul, [facility] [address] [id number] [place] [address] Jun, [facility] [address] [id number] [place] [address] 17 Jun, 2010 [facility] [address] [id number] [place] [address] 11 Jun, 2010 [facility] [address] [id number] [place] [address] 04 Jun, 2010 [facility] [address] [id number] [place] [address] 03 Jun, 2010 [facility] [address] [id number] [place] [address] 18 May, 2010 [facility] [address] [id number] [place] [address] May, [facility] [address] [facility] [id number] [place] [address] May, IMMUNIZATIONS No Known Immunizations SOCIAL HISTORY [...]
--- OUTSIDE RECORDS SUMMARY | 2020-02-16 14:13 | XMS REPORT ---
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 Name Role Phone Migration, Doctor Unavailable Unavailable PROBLEMS Type Condition ICD9-CM Code [id number] Code Onset Dates Condition S tatus SNOMED Code Problem Attention deficit hyperactivity disorder (ADHD), combi david type F90.2 Active 182344284 Problem Gastroesophageal reflux disease, esophagitis pre sence not specified K21.9 Active 889569887 Problem Gastroesophageal reflux disease, esophagitis pre sence not specified K21.9 Active 588994508 Problem Mood disorder F39 Active 592578 05 Problem Attention deficit hyperactiv ity disorder (ADHD), predominantly inattentive type F90.0 Active 39713291 Problem Adjustment disorder with anxiety F43.22 Active 49152803 Problem Generalized anxiety disorder F41.1 A ctive [id number] ALLERGIES No Information ENCOUNTERS Encounter Location Date Diagnosis [place] [address] [address] Oct, [facility] [address] [place] [id number] [place] [address] Sep, Laceration of right index fi nger without foreign body without damage to nail, initial encounter S61.210A [place] [address] [address] 15 Aug, 2019 [place] [address] [address] Aug, [facility] [address] [place] [id number] [address] [place] [address] Jul, Laceration of left index fin guerline without foreign body without damage to nail, initial encounter S61.211A and Encounter for immunization Z23 [place] [address] [address] 09 Jul, 2019 Abnormal LFTs R94.5 [place] [address] [address] Jul, Abnormal LFTs R94.5 [place] [address] [address] Jul, Gastroesophageal reflux disease, esophag itis presence not specified K21.9 and Diarrhea, unspecified type R19.7 [place] [address] [address] May, Bronchitis J40 [place] [address] [address] May, Attention deficit hyperactivity disorder (ADHD), combined type F90.2 [place] [address] [place] [id number] Apr, Adjustment disorder with anxiety F43.[address] [address] Apr, Generalized anxiety disorder F41.1 and A ttention deficit hyperactivity disorder (ADHD), combined type F90.2 [place] [address] [address] Mar, Generalized anxiety disorder F41.1 and A ttention deficit hyperactivity disorder (ADHD), combined type F90.2 [place] [address] [address] Feb, Attention deficit hyperactivity disorder (ADHD), combined type F90.2 and Generalized anxiety disorder F41.1 [place] [address] [address] Feb, Adjustment disorder with anxiety F43.22 [place] [address] [address] Jan, Adjustment disorder with anxiety F43.22 [place] [address] [address] Aug, Blood in stool K92.1 and History of hemo rrhoids Z87.19 [place] [address] [address] Jul, Attention deficit hyperactivity disorder (ADHD), combined type F90.2 [facility] [address] [address] 19 Jul, 2018 Attention deficit hyperactivity disorder (ADHD), combined type F90.2 and Adjustment disorder with anxiety F43.22 [facility] [address] [address] 26 Jun, 2018 Bloody stools K92.1 and Acute bilateral low back pain without sciatica M54.5 [facility] [address] [address] 08 Jun, 2018 Attention deficit hyperactivity disorder (ADHD), combined type F90.2 [facility] [address] [address] 15 May, 2018 Attention deficit hyperactivity disorder (ADHD), combined type F90.2 [place] [address] [address] 10 Apr, 2018 Attention deficit hyperactivity disorder (ADHD), combined type F90.2 [facility] [address] [address] 27 Mar, 2018 Attention deficit hyperactivity disorder (ADHD), combined type F90.2 [place] [address] [address] 14 Mar, 2018 Attention deficit hyperactivity disorder (ADHD), combined type F90.2 [facility] [address] [address] 14 Mar, 2018 Attention deficit hyperactivity disorder (ADHD), combined type F90.2 and High risk medication use Z79.899 [facility] [address] [address] 14 Mar, 2018 Gastroenteritis K52.9 [facility] [address] [address] Feb, Attention deficit hyperactivity disorder (ADHD), combined type F90.2 [facility] [address] [place] [address] [place] [address] Jan, Attention deficit hyperactivity disorder (ADHD), combined type F90.2 and High risk medication use Z79.899 [place] [address] [address] [place], [place] [id number] 57 13 Sep, 2017 Acute cystitis without hematuria N30.00 and Acute suppurative otitis media of left ear with spontaneous rupture of tympanic membrane, recurrence not specified H66.[address] [id number] Jul, Seborrheic keratoses L82.1 and Mood disorder F39 [address] [id number] Jul, Attention deficit hyperactivity disorder (ADHD), predominantly inattentive type F90.[address] [id number] 57 Jul, Mood disorder F39 [facility] [address] [address] Sep, [facility] [address] [address] Aug, [facility] [address] [address] Jul, [facility] [address] [address] Jul, [facility] [address] [address] Jun, Attention deficit hyperactivity disorder (ADHD), combined type F90.2 [facility] [address] [address] May, [facility] [address] [address] Apr, Attention deficit hyperactivity disorder (ADHD), combined type F90.2 [facility] [address] [place] [id number] [place] [address] Mar, Acute non-recurrent maxillary sinusitis J01.00 [facility] [address] [facility] [id number] [place] [address] Mar, Acute non-recurrent maxillar y sinusitis J01.00 [facility] [address] [place] [id number] [place] [address] Mar, [facility] [address] [facility] [id number] [address] [place] [address] Feb, Gastroenteritis K52.9 [facility] [address] [address] Feb, [facility] [address] [address] Jan, [facility] [address] [address] December, [facility] [address] [address] December, Rash R21 [facility] [address] [address] Nov, [facility] [address] [address] Nov, [facility] [address] [address] Oct, [facility] [address] [address] Oct, Attention deficit hyperactivity disorder (ADHD), combined type F90.2 [facility] [address] [address] Sep, [facility] [address] [address] Sep, Viral syndrome B34.9 and HSV (herpes sim plex virus) infection B00.9 [facility] [address] [address] Aug, [facility] [address] [address] Aug, [facility] [address] [place] [address] [place] [address] Jul, [facility] [address] [address] Jun, Gastroenteritis K52.9 [facility] [address] [address] Jun, [facility] [address] [address] Jun, Attention deficit hyperactivity disorder (ADHD), combined type F90.2 [facility] [address] [address] Jun, [facility] [address] [address] May, 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 [facility] [address] [address] May, [facility] [address] [address] Apr, [facility] [address] [address] Mar, [facility] [address] [address] Feb, [facility] [address] [address] Jan, Poison janneth 692.6 [facility] [address] [address] Jan, Attention deficit disorder (ADD) 314.00 [facility] [address] [address] Jan, [facility] [address] [address] Jan, Poison janneth dermatitis 692.6 [facility] [address] [address] December, [facility] [address] [place] [id number] [place] [address] 14 Nov, 2014 [facility] [place] [facility] [address] [facility] [id number] [place] [address] 13 Nov, 2014 [facility] [place] [facility] [address] [id number] [place] [address] 13 Oct, 2014 [facility] [place] [facility] [address] [id number] [place] [address] Oct, [facility] [place] [facility] [address] [id number] [place] [address] Oct, [facility] [place] [facility] [address] [id number] [place] [address] Oct, [facility] [place] [facility] [address] [id number] [place] [address] Oct, [facility] [place] [facility] [address] [id number] [place] [address] Oct, [facility] [place] [facility] [address] [id number] [place] [address] Oct, [facility] [place] [facility] [address] [id number] [place] [address] Oct, [facility] [place] [facility] [address] [id number] [place] [address] Sep, [facility] [place] [facility] [address] [id number] [place] [address] Sep, [facility] [place] [facility] [address] [id number] [place] [address] Aug, [facility] [place] [facility] [address] [id number] [place] [address] Aug, [facility] [place] [facility] [address] [id number] [place] [address] Aug, [facility] [place] [facility] [address] [id number] [place] [address] Aug, [facility] [place] [facility] [address] [id number] [place] [address] Aug, [facility] [place] [facility] [address] [id number] [place] [address] Aug, [facility] [place] [facility] [address] [id number] [place] [address] Jul, [facility] [place] [facility] [address] [id number] [place] [address] Jul, [facility] [place] [facility] [address] [id number] [place] [address] Jun, [facility] [place] [facility] [address] [id number] [place] [address] Jun, [facility] [place] [facility] [address] [id number] [place] [address] Jun, [facility] [place] [facility] [address] [id number] [place] [address] Jun, [facility] [place] [facility] [address] [id number] [place] [address] May, [facility] [place] [facility] [address] [id number] [place] [address] May, [facility] [place] [facility] [address] [id number] [place] [address] Apr, [facility] [place] [facility] [address] [id number] [place] [address] Apr, [facility] [place] [facility] [address] [id number] [place] [address] Mar, [facility] [place] [facility] [address] [id number] [place] [address] Mar, [facility] [place] [facility] [address] [id number] [place] [address] Feb, [facility] [place] [facility] [address] [id number] [place] [address] Feb, [facility] [place] [facility] [address] [id number] [place] [address] Feb, [facility] [place] [facility] [address] [id number] [place] [address] Feb, [facility] [place] [facility] [address] [facility] [id number] [facility] [facility] [place] [address] Jan, [facility] [place] [facility] [address] [id number] [facility] [facility] [place] [address] Jan, [facility] [place] [facility] [address] [id number] [place] [address] Jan, [facility] [place] [facility] [address] [id number] [place] [address] Jan, [facility] [place] [facility] [address] [id number] [facility] [facility] [place] [address] December, [facility] [place] [facility] [address] [id number] [place] [address] December, [facility] [place] [facility] [address] [id number] [place] [address] December, [facility] [place] [facility] [address] [id number] [place] [address] December, [facility] [place] [facility] [address] [id number] [place] [address] Nov, [facility] [place] [facility] [address] [id number] [place] [address] Nov, [facility] [place] [facility] [address] [id number] [place] [address] Oct, [facility] [place] [facility] [address] [id number] [place] [address] Oct, [facility] [place] [facility] [address] [id number] [place] [address] Sep, [facility] [place] [facility] [address] [id number] [place] [address] Sep, [facility] [place] [facility] [address] [id number] [place] [address] Aug, [facility] [place] [facility] [address] [id number] [place] [address] Aug, [facility] [place] [facility] [address] [id number] [place] [address] Jul, [facility] [place] [facility] [address] [id number] [place] [address] Jul, [facility] [place] [facility] [address] [id number] [place] [address] Jun, [facility] [place] [facility] [address] [id number] [place] [address] Jun, [facility] [place] [facility] [address] [id number] [place] [address] Jun, [facility] [place] [facility] [address] [id number] [place] [address] Jun, [facility] [place] [facility] [address] [id number] [place] [address] May, [facility] [place] [facility] [address] [id number] [place] [address] May, [facility] [place] [facility] [address] [id number] [place] [address] May, [facility] [place] [facility] [address] [id number] [place] [address] Apr, [facility] [place] [facility] [address] [id number] [place] [address] Mar, [facility] [place] [facility] [address] [id number] [place] [address] Mar, [facility] [place] [facility] [address] [id number] [place] [address] Mar, [facility] [place] [facility] [address] [id number] [place] [address] Mar, [facility] [place] [facility] [address] [id number] [place] [address] Feb, [facility] [place] [facility] [address] [id number] [place] [address] Feb, [facility] [place] [facility] [address] [id number] [place] [address] Feb, [facility] [place] [facility] [address] [id number] [place] [address] Jan, [facility] [place] [facility] [address] [id number] [place] [address] Jan, [facility] [place] [facility] [address] [id number] [place] [address] December, [facility] [place] [facility] [address] [id number] [place] [address] Nov, [facility] [place] [facility] [address] [id number] [place] [address] Nov, [facility] [place] [facility] [address] [id number] [place] [address] Oct, [facility] [place] [facility] [address] [id number] [place] [address] Oct, [facility] [place] [facility] [address] [place] [id number] [place] [address] Oct, [facility] [place] [facility] [address] [id number] [place] [address] Sep, [facility] [place] [facility] [address] [id number] [place] [address] Sep, [facility] [place] [facility] [address] [id number] [place] [address] Aug, [facility] [place] [facility] [address] [place] [address] [id number] [place] [address] Jun, [facility] [place] [facility] [address] [id number] [place] [address] Jun, [facility] [place] [facility] [address] [id number] [place] [address] Jun, [facility] [place] [facility] [address] [id number] [place] [address] Jun, [facility] [place] [facility] [address] [id number] [place] [address] Jun, [facility] [place] [facility] [address] [id number] [place] [address] Jun, [facility] [place] [facility] [address] [id number] [place] [address] Jun, [facility] [place] [facility] [address] [id number] [place] [address] Jun, [facility] [place] [facility] [address] [id number] [place] [address] May, [facility] [place] [facility] [address] [id number] [place] [address] May, [facility] [place] [facility] [address] [id number] [place] [address] May, [facility] [place] [facility] [address] [id number] [place] [address] May, [facility] [place] [facility] [address] [place] [id number] [place] [address] May, [facility] [place] [facility] [address] [id number] [place] [address] May, [facility] [place] [facility] [address] [id number] [place] [address] Apr, [facility] [place] [facility] [address] [id number] [place] [address] Apr, [facility] [place] [facility] [address] [id number] [place] [address] Mar, [facility] [place] [facility] [address] [id number] [place] [address] Feb, [facility] [place] [facility] [address] [id number] [place] [address] Jan, [facility] [place] [facility] [address] [place] [id number] [place] [address] December, [facility] [place] [facility] [address] [id number] [place] [address] Nov, [facility] [place] [facility] [address] [id number] [place] [address] Oct, [facility] [place] [facility] [address] [id number] [place] [address] 15 Oct, 2011 [facility] [place] [facility] [address] [id number] [place] [address] 10 Aug, 2011 [facility] [place] [facility] [address] [id number] [place] [address] 22 Jul, 2011 [facility] [place] [facility] [address] [id number] [place] [address] 15 Jun, 2011 [facility] [place] [facility] [address] [id number] [place] [address] 14 Jun, 2011 [facility] [place] [facility] [address] [id number] [place] [address] 31 May, 2011 [facility] [place] [facility] [address] [id number] [place] [address] 31 May, 2011 [facility] [place] [facility] [address] [id number] [place] [address] Aug, [facility] [place] [facility] [address] [id number] [place] [address] 29 Jul, 2010 [facility] [place] [facility] [address] [id number] [place] [address] Jul, [facility] [place] [facility] [address] [id number] [place] [address] Jun, [facility] [place] [facility] [address] [id number] [place] [address] 17 Jun, 2010 [facility] [place] [facility] [address] [id number] [place] [address] 11 Jun, 2010 [facility] [place] [facility] [address] [id number] [place] [address] 04 Jun, 2010 [facility] [place] [facility] [address] [id number] [place] [address] 03 Jun, 2010 [facility] [place] [facility] [address] [id number] [place] [address] 18 May, 2010 [facility] [place] [facility] [address] [id number] [place] [address] May, [facility] [address] [facility] [id number] [place] [address] May, IMMUNIZATIONS No Known Immunizations SOCIAL HISTORY [...]
--- OUTSIDE RECORDS SUMMARY | 2020-02-16 14:13 | XMS REPORT ---
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 Name Role Phone Migration, Doctor Unavailable Unavailable PROBLEMS Type Condition ICD9-CM Code [id number] Code Onset Dates Condition S tatus SNOMED Code Problem Attention deficit hyperactivity disorder (ADHD), combi david type F90.2 Active 742609021 Problem Gastroesophageal reflux disease, esophagitis pre sence not specified K21.9 Active 059508977 Problem Gastroesophageal reflux disease, esophagitis pre sence not specified K21.9 Active 828165438 Problem Mood disorder F39 Active 729455 05 Problem Attention deficit hyperactiv ity disorder (ADHD), predominantly inattentive type F90.0 Active 55131130 Problem Adjustment disorder with anxiety F43.22 Active 56075334 Problem Generalized anxiety disorder F41.1 A ctive [id number] ALLERGIES No Information ENCOUNTERS Encounter Location Date Diagnosis [facility] [address] [address] Sep, [facility] [address] [address] Sep, [facility] [address] [address] Aug, [facility] [address] [address] Aug, [facility] [address] [facility] [id number] [address] [address] Jul, Laceration of left index fin guerline without foreign body without damage to nail, initial encounter S61.211A and Encounter for immunization Z23 [facility] [address] [address] Jul, Abnormal LFTs R94.5 [facility] [address] [address] Jul, Abnormal LFTs R94.5 [place] [address] [address] Jul, Gastroesophageal reflux disease, esophag itis presence not specified K21.9 and Diarrhea, unspecified type R19.7 [place] [address] [address] May, Bronchitis J40 [place] [address] [address] May, Attention deficit hyperactivity disorder (ADHD), combined type F90.2 [place] [address] [place] [id number] Apr, Adjustment disorder with anxiety F43.22 [place] [address] [address] Apr, Generalized anxiety disorder F41.1 and A ttention deficit hyperactivity disorder (ADHD), combined type F90.2 [place] [address] [address] Mar, Generalized anxiety disorder F41.1 and A ttention deficit hyperactivity disorder (ADHD), combined type F90.2 [place] [address] [address] Feb, Attention deficit hyperactivity disorder (ADHD), combined type F90.2 and Generalized anxiety disorder F41.1 [place] [address] [address] Feb, Adjustment disorder with anxiety F43.22 [place] [address] [address] Jan, Adjustment disorder with anxiety F43.[address] [address] Aug, Blood in stool K92.1 and History of hemo rrhoids Z87.[address] [address] Jul, Attention deficit hyperactivity disorder (ADHD), combined type F90.2 [facility] [address] [address] 19 Jul, 2018 Attention deficit hyperactivity disorder (ADHD), combined type F90.2 and Adjustment disorder with anxiety F43.22 [facility] [address] [address] 26 Jun, 2018 Bloody stools K92.1 and Acute bilateral low back pain without sciatica M54.5 [facility] [address] [address] 08 Jun, 2018 Attention deficit hyperactivity disorder (ADHD), combined type F90.2 [facility] [address] [address] 15 May, 2018 Attention deficit hyperactivity disorder (ADHD), combined type F90.2 [facility] [address] [address] 10 Apr, 2018 Attention deficit hyperactivity disorder (ADHD), combined type F90.2 [facility] [address] [address] Mar, Attention deficit hyperactivity disorder (ADHD), combined type F90.2 [facility] [address] [address] Mar, Attention deficit hyperactivity disorder (ADHD), combined type F90.2 [facility] [address] [address] Mar, Attention deficit hyperactivity disorder (ADHD), combined type F90.2 and High risk medication use Z79.899 [facility] [address] [address] Mar, Gastroenteritis K52.9 [facility] [address] [address] Feb, Attention deficit hyperactivity disorder (ADHD), combined type F90.2 [facility] [address] [address] 05 Jan, 2018 Attention deficit hyperactivity disorder (ADHD), combined type F90.2 and High risk medication use Z79.899 [place] [address] [place] [address] 13 Sep, 2017 Acute cystitis without hematuria N30.00 and Acute suppurative otitis media of left ear with spontaneous rupture of tympanic membrane, recurrence not specified H66.012 [place] [address] [place], [place] [id number] 57 Jul, Seborrheic keratoses L82.1 and Mood disorder F39 [place] [address] [place], [place] [id number] 57 Jul, Attention deficit hyperactivity disorder (ADHD), predominantly inattentive type F90.[address] [id number] 57 Jul, Mood disorder F39 [facility] [address] [address] Sep, [facility] [address] [address] Aug, [facility] [address] [address] Jul, [facility] [address] [address] Jul, [facility] [address] [address] Jun, Attention deficit hyperactivity disorder (ADHD), combined type F90.2 [facility] [address] [address] May, [facility] [address] [address] Apr, Attention deficit hyperactivity disorder (ADHD), combined type F90.2 [facility] [address] [address] Mar, Acute non-recurrent maxillary sinusitis J01.00 [facility] [address] [facility] [id number] [address] [place] [address] Mar, Acute non-recurrent maxillar y sinusitis J01.00 [facility] [address] [id number] [place] [address] Mar, [facility] [address] [facility] [id number] [address] [address] Feb, Gastroenteritis K52.9 [facility] [address] [id number] [place] [address] Feb, [facility] [address] [address] Jan, [facility] [address] [place] [id number] [place] [address] December, [facility] [address] [address] December, Rash R21 [facility] [address] [place] [id number] [place] [address] Nov, [facility] [address] [address] Nov, [facility] [address] [place] [id number] [place] [address] Oct, [facility] [address] [address] Oct, Attention deficit hyperactivity disorder (ADHD), combined type F90.2 [facility] [address] [place] [id number] [place] [address] Sep, [facility] [address] [place] [id number] [place] [address] Sep, Viral syndrome B34.9 and HSV (herpes sim plex virus) infection B00.9 [facility] [address] [address] Aug, [facility] [address] [address] Aug, [facility] [address] [address] Jul, [facility] [address] [address] Jun, Gastroenteritis K52.9 [facility] [address] [address] Jun, [facility] [address] [address] Jun, Attention deficit hyperactivity disorder (ADHD), combined type F90.2 [facility] [address] [address] Jun, [facility] [address] [address] May, 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 [facility] [address] [address] May, [facility] [address] [address] Apr, [facility] [address] [address] Mar, [facility] [address] [address] Feb, [facility] [address] [address] Jan, Poison janneth 692.6 [facility] [address] [address] Jan, Attention deficit disorder (ADD) 314.00 [facility] [address] [address] Jan, [facility] [address] [address] Jan, Poison janneth dermatitis 692.6 [facility] [address] [address] December, [facility] [address] [address] Nov, [facility] [place] [facility] [address] [id number] [place] [address] 13 Nov, 2014 [facility] [place] [facility] [address] [id number] [place] [address] Oct, [facility] [place] [facility] [address] [id number] [place] [address] Oct, [facility] [place] [facility] [address] [id number] [place] [address] Oct, [facility] [place] [facility] [address] [id number] [place] [address] Oct, [facility] [place] [facility] [address] [id number] [place] [address] Oct, [facility] [place] [facility] [address] [id number] [place] [address] Oct, [facility] [place] [facility] [address] [id number] [place] [address] Oct, [facility] [place] [facility] [address] [id number] [place] [address] Oct, [facility] [place] [facility] [address] [id number] [place] [address] Sep, [facility] [place] [facility] [address] [id number] [place] [address] Sep, [facility] [place] [facility] [address] [id number] [place] [address] Aug, [facility] [place] [facility] [address] [id number] [place] [address] Aug, [facility] [place] [facility] [address] [id number] [place] [address] Aug, [facility] [place] [facility] [address] [id number] [place] [address] Aug, [facility] [place] [facility] [address] [id number] [place] [address] Aug, [facility] [place] [facility] [address] [id number] [place] [address] Aug, [facility] [place] [facility] [address] [facility] [id number] [place] [address] Jul, [facility] [place] [facility] [address] [facility] [id number] [place] [address] Jul, [facility] [place] [facility] [address] [id number] [place] [address] Jun, [facility] [place] [facility] [address] [id number] [place] [address] Jun, [facility] [place] [facility] [address] [facility] [id number] [place] [address] Jun, [facility] [place] [facility] [address] [id number] [place] [address] Jun, [facility] [place] [facility] [address] [id number] [place] [address] May, [facility] [place] [facility] [address] [id number] [place] [address] May, [facility] [place] [facility] [address] [facility] [id number] [place] [address] Apr, [facility] [place] [facility] [address] [id number] [place] [address] Apr, [facility] [place] [facility] [address] [id number] [place] [address] Mar, [facility] [place] [facility] [address] [id number] [place] [address] Mar, [facility] [place] [facility] [address] [facility] [id number] [place] [address] Feb, [facility] [place] [facility] [address] [facility] [id number] [place] [address] Feb, [facility] [place] [facility] [address] [id number] [place] [address] Feb, [facility] [place] [facility] [address] [id number] [facility] [place] [address] Feb, [facility] [place] [facility] [address] [id number] [place] [address] Jan, [facility] [place] [facility] [address] [id number] [place] [address] Jan, [facility] [place] [facility] [address] [id number] [place] [address] Jan, [facility] [place] [facility] [address] [id number] [place] [address] Jan, [facility] [place] [facility] [address] [id number] [place] [address] December, [facility] [place] [facility] [address] [id number] [place] [address] December, [facility] [place] [facility] [address] [id number] [place] [address] December, [facility] [place] [facility] [address] [id number] [place] [address] December, [facility] [place] [facility] [address] [id number] [place] [address] Nov, [facility] [place] [facility] [address] [id number] [place] [address] Nov, [facility] [place] [facility] [address] [id number] [place] [address] Oct, [facility] [place] [facility] [address] [id number] [place] [address] Oct, [facility] [place] [facility] [address] [id number] [place] [address] Sep, [facility] [place] [facility] [address] [id number] [place] [address] Sep, [facility] [place] [facility] [address] [id number] [place] [address] Aug, [facility] [place] [facility] [address] [id number] [place] [address] Aug, [facility] [place] [facility] [address] [id number] [place] [address] Jul, [facility] [place] [facility] [address] [id number] [place] [address] Jul, [facility] [place] [facility] [address] [id number] [place] [address] Jun, [facility] [place] [facility] [address] [id number] [place] [address] Jun, [facility] [place] [facility] [address] [id number] [place] [address] Jun, [facility] [place] [facility] [address] [id number] [place] [address] Jun, [facility] [place] [facility] [address] [id number] [place] [address] May, [facility] [place] [facility] [address] [id number] [place] [address] May, [facility] [place] [facility] [address] [id number] [place] [address] May, [facility] [place] [facility] [address] [id number] [place] [address] Apr, [facility] [place] [facility] [address] [id number] [place] [address] Mar, [facility] [place] [facility] [address] [id number] [place] [address] Mar, [facility] [place] [facility] [address] [id number] [place] [address] Mar, [facility] [place] [facility] [address] [id number] [place] [address] Mar, [facility] [place] [facility] [address] [id number] [place] [address] Feb, [facility] [place] [facility] [address] [id number] [place] [address] Feb, [facility] [place] [facility] [address] [id number] [place] [address] Feb, [facility] [place] [facility] [address] [id number] [place] [address] Jan, [facility] [place] [facility] [address] [id number] [place] [address] Jan, [facility] [place] [facility] [address] [id number] [place] [address] December, [facility] [place] [facility] [address] [id number] [place] [address] Nov, [facility] [place] [facility] [address] [id number] [place] [address] Nov, [facility] [place] [facility] [address] [id number] [place] [address] Oct, [facility] [place] [facility] [address] [id number] [place] [address] Oct, [facility] [place] [facility] [address] [id number] [place] [address] Oct, [facility] [place] [facility] [address] [id number] [place] [address] Sep, [facility] [place] [facility] [address] [id number] [place] [address] Sep, [facility] [place] [facility] [address] [id number] [place] [address] Aug, [facility] [place] [facility] [address] [id number] [place] [address] Jun, [facility] [place] [facility] [address] [id number] [place] [address] Jun, [facility] [place] [facility] [address] [id number] [place] [address] Jun, [facility] [place] [facility] [address] [id number] [place] [address] Jun, [facility] [place] [facility] [address] [id number] [place] [address] Jun, [facility] [place] [facility] [address] [id number] [place] [address] Jun, [facility] [place] [facility] [address] [id number] [place] [address] Jun, [facility] [place] [facility] [address] [id number] [place] [address] Jun, [facility] [place] [facility] [address] [id number] [place] [address] May, [facility] [place] [facility] [address] [id number] [place] [address] May, [facility] [place] [facility] [address] [id number] [place] [address] May, [facility] [place] [facility] [address] [id number] [place] [address] May, [facility] [place] [facility] [address] [id number] [place] [address] May, [facility] [place] [facility] [address] [id number] [place] [address] May, [facility] [place] [facility] [address] [id number] [place] [address] Apr, [facility] [place] [facility] [address] [id number] [place] [address] Apr, [facility] [place] [facility] [address] [id number] [place] [address] Mar, [facility] [place] [facility] [address] [id number] [place] [address] Feb, [facility] [place] [facility] [address] [id number] [place] [address] Jan, [facility] [place] [facility] [address] [id number] [place] [address] December, [facility] [place] [facility] [id number] [place] [address] Nov, [facility] [place] [facility] [address] [id number] [place] [address] Oct, [facility] [place] [facility] [id number] [place] [address] Oct, [facility] [place] [facility] [address] [id number] [place] [address] 10 Aug, 2011 [facility] [place] [facility] [address] [id number] [place] [address] 22 Jul, 2011 [facility] [place] [facility] [address] [id number] [place] [address] 15 Jun, 2011 [facility] [place] [facility] [address] [id number] [place] [address] 14 Jun, 2011 [facility] [place] [facility] [address] [id number] [place] [address] 31 May, 2011 [facility] [place] [facility] [address] [id number] [place] [address] 31 May, 2011 [facility] [address] [id number] [place] [address] Aug, [facility] [address] [id number] [place] [address] 29 Jul, 2010 [facility] [address] [id number] [place] [address] Jul, [facility] [address] [id number] [place] [address] Jun, [facility] [address] [id number] [place] [address] 17 Jun, 2010 [facility] [address] [id number] [place] [address] Jun, [facility] [address] [id number] [place] [address] 04 Jun, 2010 [facility] [address] [id number] [place] [address] 03 Jun, 2010 [facility] [address] [id number] [place] [address] 18 May, 2010 [facility] [address] [id number] [place] [address] 15 May, 2010 [facility] [address] [id number] [place] [address] May, IMMUNIZATIONS No Known Immunizations SOCIAL HISTORY [...]
--- OUTSIDE RECORDS SUMMARY | 2020-02-16 14:13 | XMS REPORT ---
Author Author Andrew Garcia Doctor Organization [facility] Address Unknown Phone Unavailable Care Team Providers Care Service Developer Name Role Phone Migration, Doctor Unavailable Unavailable PROBLEMS Type Condition ICD9-CM Code [id number] Code Onset Dates Condition S tatus SNOMED Code Problem Attention deficit hyperactivity disorder (ADHD), combi david type F90.2 Active 252330222 Problem Gastroesophageal reflux disease, esophagitis pre sence not specified K21.9 Active 935164972 Problem Gastroesophageal reflux disease, esophagitis pre sence not specified K21.9 Active 535047751 Problem Mood disorder F39 Active 555243 05 Problem Attention deficit hyperactiv ity disorder (ADHD), predominantly inattentive type F90.0 Active 66781742 Problem Adjustment disorder with anxiety F43.22 Active 73431833 Problem Generalized anxiety disorder F41.1 A ctive [id number] ALLERGIES No Information ENCOUNTERS Encounter Location Date Diagnosis [place] [id number] [place] [address] Oct, [place] [address] [place] [address] Oct, [facility] [place] [id number] [address] [place] [address] Sep, Laceration of right index fi nger without foreign body without damage to nail, initial encounter S61.210A [facility] [id number] [place] [address] Aug, [facility] [id number] [place] [address] Aug, [facility] [address] [place] [id number] [place] [address] Jul, Laceration of left index fin guerline without foreign body without damage to nail, initial encounter S61.211A and Encounter for immunization Z23 [facility] [address] [address] Jul, Abnormal LFTs R94.5 [place] [address] [address] Jul, Abnormal LFTs R94.5 [place] [address] [address] Jul, Gastroesophageal reflux disease, esophag itis presence not specified K21.9 and Diarrhea, unspecified type R19.7 [place] [address] [address] May, Bronchitis J40 [place] [address] [address] May, Attention deficit hyperactivity disorder (ADHD), combined type F90.2 [place] [address] [address] Apr, Adjustment disorder with anxiety F43.22 [place] [address] [address] Apr, Generalized anxiety disorder F41.1 and A ttention deficit hyperactivity disorder (ADHD), combined type F90.2 [place] [address] [address] Mar, Generalized anxiety disorder F41.1 and A ttention deficit hyperactivity disorder (ADHD), combined type F90.2 [place] [address] [address] Feb, Attention deficit hyperactivity disorder (ADHD), combined type F90.2 and Generalized anxiety disorder F41.1 [place] [address] [address] Feb, Adjustment disorder with anxiety F43.22 [place] [address] [address] Jan, Adjustment disorder with anxiety F43.22 [place] [address] [address] Aug, Blood in stool K92.1 and History of hemo rrhoids Z87.19 [place] [address] [address] 20 Jul, 2018 Attention deficit hyperactivity disorder (ADHD), combined type F90.2 [place] [address] [address] 19 Jul, 2018 Attention deficit hyperactivity disorder (ADHD), combined type F90.2 and Adjustment disorder with anxiety F43.22 [place] [address] [address] 26 Jun, 2018 Bloody stools K92.1 and Acute bilateral low back pain without sciatica M54.5 [place] [address] [address] 08 Jun, 2018 Attention deficit hyperactivity disorder (ADHD), combined type F90.2 [place] [address] [address] 15 May, 2018 Attention deficit hyperactivity disorder (ADHD), combined type F90.2 [place] [address] [address] 10 Apr, 2018 Attention deficit hyperactivity disorder (ADHD), combined type F90.2 [place] [address] [address] 27 Mar, 2018 Attention deficit hyperactivity disorder (ADHD), combined type F90.2 [place] [address] [address] 14 Mar, 2018 Attention deficit hyperactivity disorder (ADHD), combined type F90.2 [place] [address] [address] 14 Mar, 2018 Attention deficit hyperactivity disorder (ADHD), combined type F90.2 and High risk medication use Z79.899 [place] [address] [address] 14 Mar, 2018 Gastroenteritis K52.9 [place] [address] [address] Feb, Attention deficit hyperactivity disorder (ADHD), combined type F90.2 [facility] [address] [address] Jan, Attention deficit hyperactivity disorder (ADHD), combined type F90.2 and High risk medication use Z79.899 [place] [address] [place], [place] [id number] 13 Sep, 2017 Acute cystitis without hematuria N30.00 and Acute suppurative otitis media of left ear with spontaneous rupture of tympanic membrane, recurrence not specified H66.[address] [id number] Jul, Seborrheic keratoses L82.1 and Mood disorder F39 [address] [id number] 57 Jul, Attention deficit hyperactivity disorder (ADHD), predominantly inattentive type F90.[address] [id number] Jul, Mood disorder F39 [facility] [address] [address] Sep, [facility] [address] [address] Aug, [facility] [address] [address] Jul, [facility] [address] [address] Jul, [facility] [address] [address] Jun, Attention deficit hyperactivity disorder (ADHD), combined type F90.2 [facility] [address] [address] May, [facility] [address] [address] Apr, Attention deficit hyperactivity disorder (ADHD), combined type F90.2 [facility] [address] [address] Mar, Acute non-recurrent maxillary sinusitis J01.00 [facility] [address] [facility] [id number] [address] [address] Mar, Acute non-recurrent maxillar y sinusitis J01.00 [facility] [address] [id number] [place] [address] Mar, [facility] [address] [facility] [id number] [address] [address] Feb, Gastroenteritis K52.9 [facility] [id number] [place] [address] Feb, [facility] [address] [address] Jan, [facility] [address] [address] December, [facility] [address] [address] December, Rash R21 [facility] [address] [address] Nov, [facility] [address] [address] Nov, [facility] [address] [address] Oct, [facility] [address] [address] Oct, Attention deficit hyperactivity disorder (ADHD), combined type F90.2 [facility] [id number] [place] [address] Sep, [facility] [address] [address] Sep, Viral syndrome B34.9 and HSV (herpes sim plex virus) infection B00.9 [facility] [id number] [place] [address] Aug, [facility] [address] [address] Aug, [facility] [address] [address] Jul, [facility] [address] [address] Jun, Gastroenteritis K52.9 [facility] [address] [address] Jun, [facility] [address] [address] Jun, Attention deficit hyperactivity disorder (ADHD), combined type F90.2 [facility] [address] [address] Jun, [facility] [address] [address] May, 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 [facility] [address] [address] May, [facility] [address] [address] Apr, [facility] [address] [address] Mar, [facility] [address] [address] Feb, [facility] [address] [address] Jan, Poison janneth 692.6 [facility] [address] [address] Jan, Attention deficit disorder (ADD) 314.00 [facility] [address] [address] Jan, [facility] [address] [address] Jan, Poison janneth dermatitis 692.6 [facility] [id number] [place] [address] 14 Dec, 2014 [facility] [address] [facility] [id number] [place] [address] 14 Nov, 2014 [facility] [address] [id number] [place] [address] 13 Nov, 2014 [facility] [address] [id number] [place] [address] 13 Oct, 2014 [facility] [address] [id number] [place] [address] Oct, [facility] [address] [id number] [place] [address] Oct, [facility] [address] [id number] [place] [address] Oct, [facility] [address] [id number] [place] [address] Oct, [facility] [address] [id number] [place] [address] Oct, [facility] [address] [id number] [place] [address] Oct, [facility] [address] [id number] [place] [address] Oct, [facility] [address] [id number] [place] [address] Sep, [facility] [address] [id number] [place] [address] Sep, [facility] [address] [id number] [place] [address] Aug, [facility] [address] [id number] [place] [address] Aug, [facility] [address] [id number] [place] [address] Aug, [facility] [address] [id number] [place] [address] Aug, [facility] [address] [id number] [place] [address] Aug, [facility] [address] [id number] [place] [address] Aug, [facility] [address] [id number] [place] [address] Jul, [facility] [address] [id number] [place] [address] Jul, [facility] [address] [id number] [place] [address] Jun, [facility] [address] [id number] [place] [address] Jun, [facility] [address] [id number] [place] [address] Jun, [facility] [address] [id number] [place] [address] Jun, [facility] [address] [id number] [place] [address] May, [facility] [address] [id number] [place] [address] May, [facility] [address] [id number] [place] [address] Apr, [facility] [address] [id number] [place] [address] Apr, [facility] [address] [id number] [place] [address] Mar, [facility] [address] [id number] [place] [address] Mar, [facility] [address] [id number] [place] [address] Feb, [facility] [address] [id number] [place] [address] Feb, [facility] [address] [id number] [place] [address] Feb, [facility] [address] [facility] [id number] [place] [address] Feb, [facility] [address] [facility] [id number] [place] [address] Jan, [facility] [address] [id number] [place] [address] Jan, [facility] [address] [id number] [place] [address] Jan, [facility] [address] [facility] [id number] [place] [address] Jan, [facility] [address] [id number] [place] [address] December, [facility] [address] [id number] [place] [address] December, [facility] [address] [id number] [place] [address] December, [facility] [address] [id number] [place] [address] December, [facility] [address] [id number] [place] [address] Nov, [facility] [address] [id number] [place] [address] Nov, [facility] [address] [id number] [place] [address] Oct, [facility] [address] [facility] [id number] [place] [address] Oct, [facility] [address] [id number] [place] [address] Sep, [facility] [address] [id number] [place] [address] Sep, [facility] [address] [id number] [place] [address] Aug, [facility] [address] [id number] [place] [address] Aug, [facility] [address] [id number] [place] [address] Jul, [facility] [address] [id number] [place] [address] Jul, [facility] [address] [id number] [place] [address] Jun, [facility] [address] [id number] [place] [address] Jun, [facility] [address] [id number] [place] [address] Jun, [facility] [address] [id number] [place] [address] Jun, [facility] [address] [id number] [place] [address] May, [facility] [address] [id number] [place] [address] May, [facility] [address] [id number] [place] [address] May, [facility] [address] [id number] [place] [address] Apr, [facility] [address] [id number] [place] [address] Mar, [facility] [address] [id number] [place] [address] Mar, [facility] [address] [id number] [place] [address] Mar, [facility] [address] [id number] [place] [address] Mar, [facility] [address] [id number] [place] [address] Feb, [facility] [address] [id number] [place] [address] Feb, [facility] [address] [id number] [place] [address] Feb, [facility] [address] [id number] [place] [address] Jan, [facility] [address] [id number] [place] [address] Jan, [facility] [address] [id number] [place] [address] December, [facility] [address] [id number] [place] [address] Nov, [facility] [address] [id number] [place] [address] Nov, [facility] [address] [id number] [place] [address] Oct, [facility] [address] [id number] [place] [address] Oct, [facility] [address] [id number] [place] [address] Oct, [facility] [address] [id number] [place] [address] Sep, [facility] [address] [id number] [place] [address] Sep, [facility] [address] [id number] [place] [address] Aug, [facility] [address] [id number] [place] [address] Jun, [facility] [address] [id number] [place] [address] Jun, [facility] [address] [id number] [place] [address] Jun, [facility] [address] [id number] [place] [address] Jun, [facility] [address] [id number] [place] [address] Jun, [facility] [address] [id number] [place] [address] Jun, [facility] [address] [id number] [place] [address] Jun, [facility] [address] [id number] [place] [address] Jun, [facility] [address] [id number] [place] [address] May, [facility] [address] [id number] [place] [address] May, [facility] [id number] [place] [address] May, [facility] [id number] [place] [address] May, [facility] [id number] [place] [address] May, [facility] [address] [id number] [place] [address] May, [facility] [id number] [place] [address] Apr, [facility] [address] [id number] [place] [address] Apr, [facility] [id number] [place] [address] Mar, [facility] [address] [id number] [place] [address] Feb, [facility] [id number] [place] [address] Jan, [facility] [address] [id number] [place] [address] December, [facility] [address] [id number] [place] [address] Nov, [facility] [address] [id number] [place] [address] 24 Oct, 2011 [facility] [address] [id number] [place] [address] 15 Oct, 2011 [facility] [address] [id number] [place] [address] 10 Aug, 2011 [facility] [address] [id number] [place] [address] 22 Jul, 2011 [facility] [address] [id number] [place] [address] 15 Jun, 2011 [facility] [address] [id number] [place] [address] 14 Jun, 2011 [facility] [address] [id number] [place] [address] 31 May, 2011 [facility] [id number] [place] [address] 31 May, 2011 [facility] [address] [id number] [place] [address] Aug, [facility] [address] [id number] [place] [address] 29 Jul, 2010 [facility] [address] [id number] [place] [address] Jul, [facility] [address] [id number] [place] [address] 17 Jun, 2010 [facility] [address] [id number] [place] [address] 17 Jun, 2010 [facility] [address] [id number] [place] [address] 11 Jun, 2010 [facility] [id number] [place] [address] 04 Jun, 2010 [facility] [address] [id number] [place] [address] 03 Jun, 2010 [facility] [address] [id number] [place] [address] May, [facility] [address] [facility] [id number] [place] [address] May, [facility] [address] [id number] [place] [address] May, IMMUNIZATIONS No Known Immunizations SOCIAL HISTORY [...]
--- OUTSIDE RECORDS SUMMARY | 2020-02-16 14:14 | XMS REPORT ---
Author Author Andrew REES Organization [facility] Address [address] [place] [address] Care Team Providers Care Breaker Off Name Role Phone NEGRITA FAVIAN Unavailable PROBLEMS Type Condition ICD9-CM Code [id number] Code Onset Dates Condition S tatus SNOMED Code Problem Attention deficit hyperactivity disorder (ADHD), combi david type F90.2 Active 630483884 Problem Gastroesophageal reflux disease, esophagitis pre sence not specified K21.9 Active 592381201 Problem Gastroesophageal reflux disease, esophagitis pre sence not specified K21.9 Active 269490991 Problem Mood disorder F39 Active [id number] Problem Attention deficit hyperactiv ity disorder (ADHD), predominantly inattentive type F90.0 Active 62706065 Problem Adjustment disorder with anxiety F43.22 Active 00975338 Problem Generalized anxiety disorder F41.1 A ctive [id number] ALLERGIES No Information ENCOUNTERS Encounter Location Date Diagnosis [facility] [address] [address] Aug, [facility] [address] [address] Aug, [facility] [address] [facility] [id number] [place] [address] Jul, Laceration of left index fin guerline without foreign body without damage to nail, initial encounter S61.211A and Encounter for immunization Z23 [facility] [address] [address] Jul, Abnormal LFTs R94.5 [facility] [address] [address] Jul, Abnormal LFTs R94.5 [facility] [address] [address] Jul, Gastroesophageal reflux disease, esophag itis presence not specified K21.9 and Diarrhea, unspecified type R19.7 [place] [address] [address] May, Bronchitis J40 [place] [address] [address] May, Attention deficit hyperactivity disorder (ADHD), combined type F90.2 [place] [address] [address] Apr, Adjustment disorder with anxiety F43.[address] [address] Apr, Generalized anxiety disorder F41.1 and A ttention deficit hyperactivity disorder (ADHD), combined type F90.[address] [address] Mar, Generalized anxiety disorder F41.1 and A ttention deficit hyperactivity disorder (ADHD), combined type F90.[address] [address] Feb, Attention deficit hyperactivity disorder (ADHD), combined type F90.2 and Generalized anxiety disorder F41.1 [place] [address] [address] Feb, Adjustment disorder with anxiety F43.22 [place] [address] [address] Jan, Adjustment disorder with anxiety F43.[address] [address] Aug, Blood in stool K92.1 and History of hemo rrhoids Z87.19 [place] [address] [address] Jul, Attention deficit hyperactivity disorder (ADHD), combined type F90.2 [place] [address] [address] Jul, Attention deficit hyperactivity disorder (ADHD), combined type F90.2 and Adjustment disorder with anxiety F43.22 [facility] [address] [address] 26 Jun, 2018 Bloody stools K92.1 and Acute bilateral low back pain without sciatica M54.5 [facility] [address] [address] 08 Jun, 2018 Attention deficit hyperactivity disorder (ADHD), combined type F90.2 [facility] [address] [address] 15 May, 2018 Attention deficit hyperactivity disorder (ADHD), combined type F90.2 [place] [address] [address] 10 Apr, 2018 Attention deficit hyperactivity disorder (ADHD), combined type F90.2 [place] [address] [address] Mar, Attention deficit hyperactivity disorder (ADHD), combined type F90.2 [facility] [address] [address] Mar, Attention deficit hyperactivity disorder (ADHD), combined type F90.2 [facility] [address] [address] Mar, Attention deficit hyperactivity disorder (ADHD), combined type F90.2 and High risk medication use Z79.899 [place] [address] [address] Mar, Gastroenteritis K52.9 [facility] [address] [address] Feb, Attention deficit hyperactivity disorder (ADHD), combined type F90.2 [facility] [address] [address] 05 Jan, 2018 Attention deficit hyperactivity disorder (ADHD), combined type F90.2 and High risk medication use Z79.899 [facility] [address] [place], [place] [id number] 13 Sep, 2017 Acute cystitis without hematuria N30.00 and Acute suppurative otitis media of left ear with spontaneous rupture of tympanic membrane, recurrence not specified H66.012 [place] [address] [place], [place] [id number] 57 Jul, Seborrheic keratoses L82.1 and Mood disorder F39 [place] [address] [place], [place] [id number] 57 Jul, Attention deficit hyperactivity disorder (ADHD), predominantly inattentive type F90.0 [place] [address] [place], [place] [id number] 57 Jul, Mood disorder F39 [facility] [address] [address] Sep, [facility] [address] [address] Aug, [facility] [address] [address] Jul, [facility] [address] [address] Jul, [facility] [address] [address] Jun, Attention deficit hyperactivity disorder (ADHD), combined type F90.2 [facility] [address] [address] May, [facility] [address] [address] Apr, Attention deficit hyperactivity disorder (ADHD), combined type F90.2 [facility] [address] [address] Mar, Acute non-recurrent maxillary sinusitis J01.00 [facility] [address] [facility] [id number] [address] [address] Mar, Acute non-recurrent maxillar y sinusitis J01.00 [facility] [address] [id number] [place] [address] Mar, [facility] [address] [facility] [id number] [address] [place] [address] Feb, Gastroenteritis K52.9 [facility] [address] [address] Feb, [facility] [address] [address] Jan, [facility] [address] [address] December, [facility] [address] [address] December, Rash R21 [facility] [address] [address] Nov, [facility] [address] [address] Nov, [facility] [address] [address] Oct, [facility] [address] [address] Oct, Attention deficit hyperactivity disorder (ADHD), combined type F90.2 [facility] [address] [address] Sep, [facility] [address] [address] Sep, Viral syndrome B34.9 and HSV (herpes sim plex virus) infection B00.9 [facility] [address] [address] Aug, [facility] [address] [address] Aug, [facility] [address] [address] Jul, [facility] [address] [address] Jun, Gastroenteritis K52.9 [place] [id number] [address] Jun, [facility] [address] [address] Jun, Attention deficit hyperactivity disorder (ADHD), combined type F90.2 [facility] [address] [address] Jun, [facility] [address] [address] May, 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 [facility] [address] [address] May, [facility] [address] [address] Apr, [facility] [address] [address] Mar, [facility] [address] [address] Feb, [facility] [address] [address] Jan, Poison janneth 692.6 [facility] [address] [address] Jan, Attention deficit disorder (ADD) 314.00 [facility] [address] [address] Jan, [facility] [address] [address] Jan, Poison janneth dermatitis 692.6 [facility] [address] [address] December, [facility] [address] [address] Nov, [facility] [address] [address] Nov, [facility] [address] [id number] [place] [address] Oct, [facility] [address] [id number] [place] [address] Oct, [facility] [address] [id number] [place] [address] Oct, [facility] [address] [id number] [place] [address] Oct, [facility] [address] [id number] [place] [address] Oct, [facility] [address] [id number] [place] [address] Oct, [facility] [address] [id number] [place] [address] Oct, [facility] [address] [id number] [place] [address] Oct, [facility] [address] [id number] [place] [address] Sep, [facility] [address] [id number] [place] [address] Sep, [facility] [address] [id number] [place] [address] Aug, [facility] [address] [id number] [place] [address] Aug, [facility] [address] [id number] [place] [address] Aug, [facility] [address] [id number] [place] [address] Aug, [facility] [address] [id number] [place] [address] Aug, [facility] [address] [id number] [place] [address] Aug, [facility] [address] [id number] [place] [address] Jul, [facility] [address] [id number] [place] [address] Jul, [facility] [address] [id number] [place] [address] Jun, [facility] [address] [id number] [place] [address] Jun, [facility] [address] [id number] [place] [address] Jun, [facility] [address] [facility] [id number] [place] [address] Jun, [facility] [address] [id number] [place] [address] May, [facility] [address] [id number] [place] [address] May, [facility] [address] [id number] [place] [address] Apr, [facility] [address] [id number] [place] [address] Apr, [facility] [address] [id number] [place] [address] Mar, [facility] [address] [id number] [place] [address] Mar, [facility] [address] [id number] [place] [address] Feb, [facility] [address] [id number] [place] [address] Feb, [facility] [address] [id number] [place] [address] Feb, [facility] [address] [id number] [place] [address] Feb, [facility] [address] [id number] [place] [address] Jan, [facility] [address] [id number] [place] [address] Jan, [facility] [address] [facility] [id number] [place] [address] Jan, [facility] [address] [id number] [place] [address] Jan, [facility] [address] [id number] [place] [address] December, [facility] [address] [id number] [place] [address] December, [facility] [address] [id number] [place] [address] December, [facility] [address] [id number] [place] [address] December, [facility] [address] [id number] [place] [address] Nov, [facility] [address] [id number] [place] [address] Nov, [facility] [address] [id number] [place] [address] Oct, [facility] [address] [id number] [place] [address] Oct, [facility] [address] [id number] [place] [address] Sep, [facility] [address] [id number] [place] [address] Sep, [facility] [address] [facility] [id number] [place] [address] Aug, [facility] [address] [id number] [place] [address] Aug, [facility] [address] [id number] [place] [address] Jul, [facility] [address] [id number] [place] [address] Jul, [facility] [address] [id number] [place] [address] Jun, [facility] [address] [id number] [place] [address] Jun, [facility] [address] [id number] [place] [address] Jun, [facility] [address] [id number] [place] [address] Jun, [facility] [address] [id number] [place] [address] May, [facility] [address] [id number] [place] [address] May, [facility] [address] [id number] [place] [address] May, [facility] [address] [id number] [place] [address] Apr, [facility] [address] [id number] [place] [address] Mar, [facility] [address] [id number] [place] [address] Mar, [facility] [address] [id number] [place] [address] Mar, [facility] [address] [id number] [place] [address] Mar, [facility] [address] [id number] [place] [address] Feb, [facility] [address] [id number] [place] [address] Feb, [facility] [address] [id number] [place] [address] Feb, [facility] [address] [id number] [place] [address] Jan, [facility] [address] [id number] [place] [address] Jan, [facility] [address] [id number] [place] [address] December, [facility] [address] [id number] [place] [address] Nov, [facility] [address] [id number] [place] [address] Nov, [facility] [address] [id number] [place] [address] Oct, [facility] [address] [id number] [place] [address] Oct, [facility] [address] [id number] [place] [address] Oct, [facility] [address] [id number] [place] [address] Sep, [facility] [address] [id number] [place] [address] Sep, [facility] [address] [id number] [place] [address] Aug, [facility] [address] [id number] [place] [address] Jun, [facility] [address] [id number] [place] [address] Jun, [facility] [address] [id number] [place] [address] Jun, [facility] [address] [id number] [place] [address] Jun, [facility] [address] [id number] [place] [address] Jun, [facility] [address] [id number] [place] [address] Jun, [facility] [address] [id number] [place] [address] Jun, [facility] [address] [id number] [place] [address] Jun, [facility] [address] [id number] [place] [address] May, [facility] [address] [id number] [place] [address] May, [facility] [address] [id number] [place] [address] May, [facility] [address] [id number] [place] [address] May, [facility] [address] [id number] [place] [address] May, [facility] [address] [id number] [place] [address] May, [facility] [address] [id number] [place] [address] Apr, [facility] [address] [place] [id number] [place] [address] Apr, [facility] [address] [id number] [place] [address] Mar, [facility] [address] [id number] [place] [address] Feb, [facility] [address] [id number] [place] [address] Jan, [facility] [address] [id number] [place] [address] December, [facility] [address] [id number] [place] [address] Nov, [facility] [address] [place] [id number] [place] [address] 24 Oct, 2011 [facility] [address] [id number] [place] [address] 15 Oct, 2011 [facility] [address] [id number] [place] [address] Aug, [facility] [address] [id number] [place] [address] Jul, [facility] [address] [place] [id number] [place] [address] Jun, [facility] [address] [place] [id number] [place] [address] Jun, [facility] [address] [place] [id number] [place] [address] May, [facility] [address] [place] [id number] [place] [address] May, [facility] [address] [place] [id number] [place] [address] Aug, [facility] [address] [place] [id number] [place] [address] Jul, [facility] [address] [place] [id number] [place] [address] Jul, [facility] [address] [place] [id number] [place] [address] Jun, [facility] [address] [place] [id number] [place] [address] Jun, [facility] [address] [place] [id number] [place] [address] Jun, [facility] [address] [place] [id number] [place] [address] Jun, [facility] [address] [place] [id number] [place] [address] Jun, [facility] [address] [place] [id number] [place] [address] May, [facility] [address] [place] [id number] [place] [address] May, [facility] [address] [place] [id number] [place] [address] May, IMMUNIZATIONS No Known Immunizations SOCIAL HISTORY [...]
--- OUTSIDE RECORDS SUMMARY | 2020-02-16 14:14 | XMS REPORT ---
Author Author Andrew ROBERTO Organization [facility] Address [address] [place] [address] Care Team Providers [place] Adviser Name Role Phone JENNIFER ROBERTO Unavailable PROBLEMS Type Condition ICD9-CM Code QYU39-ND Code Onset Dates Condition S tatus SNOMED Code Problem Attention deficit hyperactivity disorder (ADHD), combi david type F90.2 Active 158085083 Problem Gastroesophageal reflux disease, esophagitis pre sence not specified K21.9 Active 069779010 Problem Gastroesophageal reflux disease, esophagitis pre sence not specified K21.9 Active 575503822 Problem Mood disorder F39 Active 965476 05 Problem Attention deficit hyperactiv ity disorder (ADHD), predominantly inattentive type F90.0 Active 59762905 Problem Adjustment disorder with anxiety F43.22 Active 75070646 Problem Generalized anxiety disorder F41.1 A ctive [id number] ALLERGIES No Information ENCOUNTERS Encounter Location Date Diagnosis [place] [id number] [address] Sep, [facility] [address] [address] Sep, [facility] [address] [address] Aug, [facility] [address] [facility] [id number] [place] [address] Jul, Laceration of left index fin guerline without foreign body without damage to nail, initial encounter S61.211A and Encounter for immunization Z23 [facility] [address] [address] Jul, Abnormal LFTs R94.5 [facility] [address] [address] Jul, Abnormal LFTs R94.5 [place] [address] [address] Jul, Gastroesophageal reflux disease, esophag itis presence not specified K21.9 and Diarrhea, unspecified type R19.7 [place] [address] [address] May, Bronchitis J40 [place] [address] [place] [address] May, Attention deficit hyperactivity disorder (ADHD), combined type F90.2 [place] [address] [address] Apr, Adjustment disorder with anxiety F43.22 [place] [address] [address] Apr, Generalized anxiety disorder F41.1 and A ttention deficit hyperactivity disorder (ADHD), combined type F90.2 [place] [address] [address] Mar, Generalized anxiety disorder F41.1 and A ttention deficit hyperactivity disorder (ADHD), combined type F90.2 [place] [address] [address] Feb, Attention deficit hyperactivity disorder (ADHD), combined type F90.2 and Generalized anxiety disorder F41.1 [place] [address] [address] Feb, Adjustment disorder with anxiety F43.22 [place] [address] [address] Jan, Adjustment disorder with anxiety F43.[address] [address] Aug, Blood in stool K92.1 and History of hemo rrhoids Z87.19 [place] [address] [address] Jul, Attention deficit hyperactivity disorder (ADHD), combined type F90.2 [facility] [address] [address] 19 Jul, 2018 Attention deficit hyperactivity disorder (ADHD), combined type F90.2 and Adjustment disorder with anxiety F43.22 [facility] [address] [address] 26 Jun, 2018 Bloody stools K92.1 and Acute bilateral low back pain without sciatica M54.5 [facility] [address] [address] 08 Jun, 2018 Attention deficit hyperactivity disorder (ADHD), combined type F90.2 [place] [address] [address] 15 May, 2018 Attention deficit hyperactivity disorder (ADHD), combined type F90.2 [place] [address] [address] 10 Apr, 2018 Attention deficit hyperactivity disorder (ADHD), combined type F90.2 [place] [address] [address] Mar, Attention deficit hyperactivity disorder (ADHD), combined type F90.2 [place] [address] [address] Mar, Attention deficit hyperactivity disorder (ADHD), combined type F90.2 [place] [address] [address] Mar, Attention deficit hyperactivity disorder (ADHD), combined type F90.2 and High risk medication use Z79.899 [facility] [address] [address] 14 Mar, 2018 Gastroenteritis K52.9 [facility] [address] [address] Feb, Attention deficit hyperactivity disorder (ADHD), combined type F90.2 [facility] [address] [address] 05 Jan, 2018 Attention deficit hyperactivity disorder (ADHD), combined type F90.2 and High risk medication use Z79.899 [facility] [address] [place], [place] [id number] 13 Sep, 2017 Acute cystitis without hematuria N30.00 and Acute suppurative otitis media of left ear with spontaneous rupture of tympanic membrane, recurrence not specified H66.012 [place] [address] [place], [place] [id number] 57 Jul, Seborrheic keratoses L82.1 and Mood disorder F39 [address] [id number] 57 Jul, Attention deficit hyperactivity disorder (ADHD), predominantly inattentive type F90.[address] [id number] 57 Jul, Mood disorder F39 [facility] [address] [address] Sep, [facility] [address] [address] Aug, [facility] [address] [address] Jul, [facility] [address] [address] Jul, [facility] [address] [address] Jun, Attention deficit hyperactivity disorder (ADHD), combined type F90.2 [facility] [address] [address] May, [facility] [address] [address] Apr, Attention deficit hyperactivity disorder (ADHD), combined type F90.2 [facility] [address] [address] Mar, Acute non-recurrent maxillary sinusitis J01.00 [facility] [address] [facility] [id number] [address] [place] [address] Mar, Acute non-recurrent maxillar y sinusitis J01.00 [facility] [address] [place] [id number] [place] [address] Mar, [facility] [address] [facility] [id number] [address] [place] [address] Feb, Gastroenteritis K52.9 [facility] [address] [id number] [place] [address] Feb, [facility] [address] [place] [id number] [place] [address] Jan, [facility] [address] [place] [id number] [place] [address] December, [facility] [address] [place] [id number] [place] [address] December, Rash R21 [facility] [address] [place] [id number] [place] [address] Nov, [facility] [address] [place] [id number] [place] [address] Nov, [facility] [address] [place] [id number] [place] [address] Oct, [facility] [address] [place] [id number] [place] [address] Oct, Attention deficit hyperactivity disorder (ADHD), combined type F90.2 [facility] [address] [place] [id number] [place] [address] Sep, [facility] [address] [place] [id number] [place] [address] Sep, Viral syndrome B34.9 and HSV (herpes sim plex virus) infection B00.9 [facility] [address] [place] [id number] [place] [address] Aug, [facility] [address] [place] [id number] [place] [address] Aug, [facility] [address] [place] [id number] [place] [address] Jul, [facility] [address] [address] Jun, Gastroenteritis K52.9 [facility] [address] [address] Jun, [facility] [address] [address] Jun, Attention deficit hyperactivity disorder (ADHD), combined type F90.2 [facility] [address] [address] Jun, [facility] [address] [address] May, 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 [facility] [address] [address] May, [facility] [address] [address] Apr, [facility] [address] [address] Mar, [facility] [address] [address] Feb, [facility] [address] [address] Jan, Poison janneth 692.6 [facility] [address] [address] Jan, Attention deficit disorder (ADD) 314.00 [facility] [address] [address] Jan, [facility] [address] [address] Jan, Poison janneth dermatitis 692.6 [facility] [address] [address] December, [facility] [address] [address] Nov, [facility] [address] [place] [id number] [place] [address] 13 Nov, 2014 [facility] [address] [facility] [id number] [place] [address] Oct, [facility] [address] [id number] [place] [address] Oct, [facility] [address] [id number] [place] [address] Oct, [facility] [address] [id number] [place] [address] Oct, [facility] [address] [id number] [place] [address] Oct, [facility] [address] [id number] [place] [address] Oct, [facility] [address] [id number] [place] [address] Oct, [facility] [address] [id number] [place] [address] Oct, [facility] [address] [id number] [place] [address] Sep, [facility] [address] [id number] [place] [address] Sep, [facility] [address] [id number] [place] [address] Aug, [facility] [address] [id number] [place] [address] Aug, [facility] [address] [id number] [place] [address] Aug, [facility] [address] [id number] [place] [address] Aug, [facility] [address] [id number] [place] [address] Aug, [facility] [address] [id number] [place] [address] Aug, [facility] [address] [id number] [place] [address] Jul, [facility] [address] [id number] [place] [address] Jul, [facility] [address] [id number] [place] [address] Jun, [facility] [address] [id number] [place] [address] Jun, [facility] [address] [id number] [place] [address] Jun, [facility] [address] [id number] [place] [address] Jun, [facility] [address] [id number] [place] [address] May, [facility] [address] [id number] [place] [address] May, [facility] [address] [id number] [place] [address] Apr, [facility] [address] [id number] [place] [address] Apr, [facility] [address] [id number] [place] [address] Mar, [facility] [address] [id number] [place] [address] Mar, [facility] [address] [id number] [place] [address] Feb, [facility] [address] [id number] [place] [address] Feb, [facility] [address] [id number] [place] [address] Feb, [facility] [address] [id number] [place] [address] Feb, [facility] [address] [id number] [place] [address] Jan, [facility] [address] [facility] [id number] [facility] [place] [address] Jan, [facility] [address] [facility] [id number] [place] [address] Jan, [facility] [address] [id number] [place] [address] Jan, [facility] [address] [id number] [place] [address] December, [facility] [address] [facility] [id number] [facility] [place] [address] December, [facility] [address] [id number] [place] [address] December, [facility] [address] [id number] [place] [address] December, [facility] [address] [id number] [place] [address] Nov, [facility] [address] [id number] [place] [address] Nov, [facility] [address] [id number] [place] [address] Oct, [facility] [address] [id number] [place] [address] Oct, [facility] [address] [id number] [place] [address] Sep, [facility] [address] [facility] [id number] [place] [address] Sep, [facility] [address] [id number] [place] [address] Aug, [facility] [address] [id number] [place] [address] Aug, [facility] [address] [id number] [place] [address] Jul, [facility] [address] [id number] [place] [address] Jul, [facility] [address] [id number] [place] [address] Jun, [facility] [address] [id number] [place] [address] Jun, [facility] [address] [id number] [place] [address] Jun, [facility] [address] [id number] [place] [address] Jun, [facility] [address] [id number] [place] [address] May, [facility] [address] [id number] [place] [address] May, [facility] [address] [id number] [place] [address] May, [facility] [address] [id number] [place] [address] Apr, [facility] [address] [id number] [place] [address] Mar, [facility] [address] [id number] [place] [address] Mar, [facility] [address] [id number] [place] [address] Mar, [facility] [address] [id number] [place] [address] Mar, [facility] [address] [id number] [place] [address] Feb, [facility] [address] [id number] [place] [address] Feb, [facility] [address] [id number] [place] [address] Feb, [facility] [address] [id number] [place] [address] Jan, [facility] [address] [id number] [place] [address] Jan, [facility] [address] [id number] [place] [address] December, [facility] [address] [id number] [place] [address] Nov, [facility] [address] [id number] [place] [address] Nov, [facility] [address] [id number] [place] [address] Oct, [facility] [address] [id number] [place] [address] Oct, [facility] [address] [id number] [place] [address] Oct, [facility] [address] [id number] [place] [address] Sep, [facility] [address] [id number] [place] [address] Sep, [facility] [address] [id number] [place] [address] Aug, [facility] [address] [id number] [place] [address] Jun, [facility] [address] [id number] [place] [address] Jun, [facility] [address] [id number] [place] [address] Jun, [facility] [address] [id number] [place] [address] Jun, [facility] [address] [id number] [place] [address] Jun, [facility] [address] [id number] [place] [address] Jun, [facility] [address] [id number] [place] [address] Jun, [facility] [address] [id number] [place] [address] Jun, [facility] [address] [id number] [place] [address] May, [facility] [address] [id number] [place] [address] May, [facility] [address] [id number] [place] [address] May, [facility] [address] [id number] [place] [address] May, [facility] [address] [id number] [place] [address] May, [facility] [address] [id number] [place] [address] May, [facility] [address] [id number] [place] [address] Apr, [facility] [address] [id number] [place] [address] Apr, [facility] [address] [id number] [place] [address] Mar, [facility] [address] [id number] [place] [address] Feb, [facility] [address] [id number] [place] [address] Jan, [facility] [address] [id number] [place] [address] December, [facility] [address] [id number] [place] [address] Nov, [facility] [address] [id number] [place] [address] Oct, [facility] [address] [id number] [place] [address] Oct, [facility] [address] [id number] [place] [address] 10 Aug, 2011 [facility] [address] [id number] [place] [address] 22 Jul, 2011 [facility] [address] [id number] [place] [address] 15 Jun, 2011 [facility] [address] [id number] [place] [address] 14 Jun, 2011 [facility] [address] [id number] [place] [address] 31 May, 2011 [facility] [address] [id number] [place] [address] 31 May, 2011 [facility] [address] [id number] [place] [address] 12 Aug, 2010 [facility] [address] [id number] [place] [address] 29 Jul, 2010 [facility] [address] [id number] [place] [address] Jul, [facility] [address] [id number] [place] [address] 17 Jun, 2010 [facility] [address] [id number] [place] [address] 17 Jun, 2010 [facility] [address] [id number] [place] [address] Jun, [facility] [address] [id number] [place] [address] 04 Jun, 2010 [facility] [address] [id number] [place] [address] 03 Jun, 2010 [facility] [address] [id number] [place] [address] 18 May, 2010 [facility] [address] [id number] [place] [address] 15 May, 2010 [facility] [address] [id number] [place] [address] May, IMMUNIZATIONS No Known Immunizations SOCIAL HISTORY Never Assessed REASON FOR VISIT PLAN OF CARE VITAL SIGNS Height 69 in 2014-02-03 Weight 205.8 lbs 2014-02-03 Temperature 98.6 degrees Fahrenheit 2014-02-03 Heart Rate 84 bpm 2014-02-03 Respiratory Rate 18 2014-02-03 Blood pressure systolic 130 mmHg 2014-02-03 Blood pressure diastolic 86 mmHg 2014-02-03 MEDICATIONS Unknown Medications RESULTS No Results PROCEDURES No Known procedures INSTRUCTIONS MEDICATIONS ADMINISTERED No Known Medications MEDICAL (GENERAL) HISTORY Type Description Date Medical History attention deficit hyperactivity disorder Medical History Mood disorder Surgical History No Surgical history information Hospitalization History [facility] Pneumonia 04/2016
--- OUTSIDE RECORDS SUMMARY | 2020-02-16 14:14 | XMS REPORT ---
Author Author Andrew REES Organization [facility] Address [address] [place] [address] Care Team Providers Care Hoeing Row Boss Name Role Phone NEGRITA FAVIAN Unavailable PROBLEMS Type Condition ICD9-CM Code VKF04-AO Code Onset Dates Condition S tatus SNOMED Code Problem Attention deficit hyperactivity disorder (ADHD), combi david type F90.2 Active 647283677 Problem Gastroesophageal reflux disease, esophagitis pre sence not specified K21.9 Active 050325358 Problem Gastroesophageal reflux disease, esophagitis pre sence not specified K21.9 Active 538866639 Problem Mood disorder F39 Active 034872 05 Problem Attention deficit hyperactiv ity disorder (ADHD), predominantly inattentive type F90.0 Active 65413247 Problem Adjustment disorder with anxiety F43.22 Active 34956315 Problem Generalized anxiety disorder F41.1 A ctive [id number] ALLERGIES No Information ENCOUNTERS Encounter Location Date Diagnosis [facility] [address] [address] Aug, [facility] [address] [facility] [id number] [place] [address] Jul, Laceration of left index fin guerline without foreign body without damage to nail, initial encounter S61.211A and Encounter for immunization Z23 [facility] [address] [address] Jul, Abnormal LFTs R94.5 [facility] [address] [address] Jul, Abnormal LFTs R94.5 [facility] [address] [address] Jul, Gastroesophageal reflux disease, esophag itis presence not specified K21.9 and Diarrhea, unspecified type R19.7 [place] [address] [address] May, Bronchitis J40 [place] [address] [address] May, Attention deficit hyperactivity disorder (ADHD), combined type F90.2 [place] [address] [address] Apr, Adjustment disorder with anxiety F43.22 [place] [address] [address] Apr, Generalized anxiety disorder F41.1 and A ttention deficit hyperactivity disorder (ADHD), combined type F90.2 [place] [address] [address] Mar, Generalized anxiety disorder F41.1 and A ttention deficit hyperactivity disorder (ADHD), combined type F90.2 [place] [address] [address] Feb, Attention deficit hyperactivity disorder (ADHD), combined type F90.2 and Generalized anxiety disorder F41.1 [place] [address] [address] Feb, Adjustment disorder with anxiety F43.22 [place] [address] [address] Jan, Adjustment disorder with anxiety F43.22 [place] [address] [address] Aug, Blood in stool K92.1 and History of hemo rrhoids Z87.19 [place] [address] [address] Jul, Attention deficit hyperactivity disorder (ADHD), combined type F90.2 [place] [address] [address] Jul, Attention deficit hyperactivity disorder (ADHD), combined type F90.2 and Adjustment disorder with anxiety F43.22 [place] [address] [address] 26 Jun, 2018 Bloody stools K92.1 and Acute bilateral low back pain without sciatica M54.5 [place] [address] [address] 08 Jun, 2018 Attention deficit hyperactivity disorder (ADHD), combined type F90.2 [place] [address] [address] 15 May, 2018 Attention deficit hyperactivity disorder (ADHD), combined type F90.2 [place] [address] [address] Apr, Attention deficit hyperactivity disorder (ADHD), combined type F90.2 [place] [address] [address] Mar, Attention deficit hyperactivity disorder (ADHD), combined type F90.2 [place] [address] [address] Mar, Attention deficit hyperactivity disorder (ADHD), combined type F90.2 [place] [address] [address] Mar, Attention deficit hyperactivity disorder (ADHD), combined type F90.2 and High risk medication use Z79.899 [place] [address] [address] Mar, Gastroenteritis K52.9 [place] [address] [address] Feb, Attention deficit hyperactivity disorder (ADHD), combined type F90.2 [place] [address] [address] 05 Jan, 2018 Attention deficit hyperactivity disorder (ADHD), combined type F90.2 and High risk medication use Z79.899 [facility] [address] [place], [place] [id number] 57 13 Sep, 2017 Acute cystitis without hematuria N30.00 and Acute suppurative otitis media of left ear with spontaneous rupture of tympanic membrane, recurrence not specified H66.012 [facility] [address] [place], [place] [id number] 57 Jul, Seborrheic keratoses L82.1 and Mood disorder F39 [place] [address] [place], [place] [address] 57 Jul, Attention deficit hyperactivity disorder (ADHD), predominantly inattentive type F90.0 [place] [address] [place], [place] [id number] 57 Jul, Mood disorder F39 [facility] [address] [address] Sep, [facility] [address] [address] Aug, [facility] [address] [address] Jul, [facility] [address] [address] Jul, [facility] [address] [address] Jun, Attention deficit hyperactivity disorder (ADHD), combined type F90.2 [facility] [address] [address] May, [facility] [address] [address] Apr, Attention deficit hyperactivity disorder (ADHD), combined type F90.2 [facility] [address] [address] Mar, Acute non-recurrent maxillary sinusitis J01.00 [facility] [address] [place] [id number] [place] [address] Mar, Acute non-recurrent maxillar y sinusitis J01.00 [facility] [address] [address] Mar, [facility] [address] [place] [id number] [place] [address] Feb, Gastroenteritis K52.9 [facility] [address] [address] Feb, [facility] [address] [address] Jan, [facility] [address] [address] December, [facility] [address] [address] December, Rash R21 [facility] [address] [address] Nov, [facility] [address] [address] Nov, [facility] [address] [address] Oct, [facility] [address] [address] Oct, Attention deficit hyperactivity disorder (ADHD), combined type F90.2 [facility] [address] [address] Sep, [facility] [address] [address] Sep, Viral syndrome B34.9 and HSV (herpes sim plex virus) infection B00.9 [facility] [address] [address] Aug, [facility] [address] [address] Aug, [facility] [address] [address] Jul, [facility] [address] [address] Jun, Gastroenteritis K52.9 [facility] [address] [address] Jun, [facility] [address] [place] [id number] [place] [address] Jun, Attention deficit hyperactivity disorder (ADHD), combined type F90.2 [facility] [address] [address] Jun, [facility] [address] [address] May, 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 [facility] [address] [address] May, [facility] [address] [address] Apr, [facility] [address] [address] Mar, [facility] [address] [address] Feb, [facility] [address] [address] Jan, Poison janneth 692.6 [facility] [address] [address] Jan, Attention deficit disorder (ADD) 314.00 [facility] [address] [address] Jan, [facility] [address] [address] Jan, Poison janneth dermatitis 692.6 [facility] [address] [address] December, [facility] [address] [address] Nov, [facility] [address] [address] Nov, [facility] [address] [address] Oct, [facility] [address] [id number] [place] [address] 13 Oct, 2014 [facility] [address] [id number] [place] [address] Oct, [facility] [address] [id number] [place] [address] Oct, [facility] [address] [id number] [place] [address] Oct, [facility] [address] [id number] [place] [address] Oct, [facility] [address] [id number] [place] [address] Oct, [facility] [address] [id number] [place] [address] Oct, [facility] [address] [id number] [place] [address] Sep, [facility] [address] [id number] [place] [address] Sep, [facility] [address] [id number] [place] [address] Aug, [facility] [address] [id number] [place] [address] Aug, [facility] [address] [id number] [place] [address] Aug, [facility] [address] [id number] [place] [address] Aug, [facility] [address] [id number] [place] [address] Aug, [facility] [address] [id number] [place] [address] Aug, [facility] [address] [id number] [place] [address] Jul, [facility] [address] [id number] [place] [address] Jul, [facility] [address] [id number] [place] [address] Jun, [facility] [address] [id number] [place] [address] Jun, [facility] [address] [id number] [place] [address] Jun, [facility] [address] [id number] [place] [address] Jun, [facility] [address] [facility] [id number] [place] [address] May, [facility] [address] [id number] [place] [address] May, [facility] [address] [id number] [place] [address] Apr, [facility] [address] [id number] [place] [address] Apr, [facility] [address] [id number] [place] [address] Mar, [facility] [address] [id number] [place] [address] Mar, [facility] [address] [id number] [place] [address] Feb, [facility] [address] [id number] [place] [address] Feb, [facility] [address] [id number] [place] [address] Feb, [facility] [address] [id number] [place] [address] Feb, [facility] [address] [id number] [place] [address] Jan, [facility] [address] [id number] [place] [address] Jan, [facility] [address] [id number] [place] [address] Jan, [facility] [address] [facility] [id number] [place] [address] Jan, [facility] [address] [id number] [place] [address] December, [facility] [address] [id number] [place] [address] December, [facility] [address] [id number] [place] [address] December, [facility] [address] [id number] [place] [address] December, [facility] [address] [id number] [place] [address] Nov, [facility] [address] [id number] [place] [address] Nov, [facility] [address] [id number] [place] [address] Oct, [facility] [address] [id number] [place] [address] Oct, [facility] [address] [id number] [place] [address] Sep, [facility] [address] [id number] [place] [address] Sep, [facility] [address] [id number] [place] [address] Aug, [facility] [address] [id number] [place] [address] Aug, [facility] [address] [id number] [place] [address] Jul, [facility] [address] [id number] [place] [address] Jul, [facility] [address] [id number] [place] [address] Jun, [facility] [address] [id number] [place] [address] Jun, [facility] [address] [id number] [place] [address] Jun, [facility] [address] [id number] [place] [address] Jun, [facility] [address] [id number] [place] [address] May, [facility] [address] [id number] [place] [address] May, [facility] [address] [id number] [place] [address] May, [facility] [address] [id number] [place] [address] Apr, [facility] [address] [id number] [place] [address] Mar, [facility] [address] [id number] [place] [address] Mar, [facility] [address] [id number] [place] [address] Mar, [facility] [address] [id number] [place] [address] Mar, [facility] [address] [id number] [place] [address] Feb, [facility] [address] [id number] [place] [address] Feb, [facility] [address] [id number] [place] [address] Feb, [facility] [address] [id number] [place] [address] Jan, [facility] [address] [id number] [place] [address] Jan, [facility] [address] [id number] [place] [address] December, [facility] [address] [id number] [place] [address] Nov, [facility] [address] [id number] [place] [address] Nov, [facility] [address] [id number] [place] [address] Oct, [facility] [address] [id number] [place] [address] Oct, [facility] [address] [id number] [place] [address] Oct, [facility] [address] [id number] [place] [address] Sep, [facility] [address] [id number] [place] [address] Sep, [facility] [address] [id number] [place] [address] Aug, [facility] [address] [id number] [place] [address] Jun, [facility] [address] [id number] [place] [address] Jun, [facility] [address] [id number] [place] [address] Jun, [facility] [address] [id number] [place] [address] Jun, [facility] [address] [id number] [place] [address] Jun, [facility] [address] [id number] [place] [address] Jun, [facility] [address] [id number] [place] [address] Jun, [facility] [address] [id number] [place] [address] Jun, [facility] [address] [id number] [place] [address] May, [facility] [address] [id number] [place] [address] May, [facility] [address] [id number] [place] [address] May, [facility] [address] [id number] [place] [address] May, [facility] [address] [id number] [place] [address] May, [facility] [address] [id number] [place] [address] May, [facility] [address] [id number] [place] [address] Apr, [facility] [address] [id number] [place] [address] Apr, [facility] [address] [place] [id number] [place] [address] Mar, [facility] [address] [id number] [place] [address] Feb, [facility] [address] [id number] [place] [address] Jan, [facility] [address] [id number] [place] [address] December, [facility] [address] [id number] [place] [address] Nov, [facility] [address] [id number] [place] [address] Oct, [facility] [id number] [place] [address] Oct, [facility] [address] [id number] [place] [address] Aug, [facility] [address] [id number] [place] [address] Jul, [facility] [id number] [place] [address] Jun, [facility] [id number] [place] [address] Jun, [facility] [id number] [place] [address] May, [facility] [id number] [place] [address] May, [facility] [id number] [place] [address] Aug, [facility] [id number] [place] [address] Jul, [facility] [id number] [place] [address] Jul, [facility] [id number] [place] [address] Jun, [facility] [id number] [place] [address] Jun, [facility] [id number] [place] [address] Jun, [facility] [id number] [place] [address] Jun, [facility] [id number] [place] [address] Jun, [facility] [id number] [place] [address] May, [facility] [id number] [place] [address] May, [facility] [id number] [place] [address] May, IMMUNIZATIONS No Known Immunizations SOCIAL HISTORY Never Assessed REASON FOR VISIT PLAN OF CARE VITAL SIGNS Height 69 in 2014-01-14 Weight 202.1 lbs 2014-01-14 Temperature 98.6 degrees Fahrenheit 2014-01-14 Heart Rate 80 bpm 2014-01-14 Respiratory Rate 18 2014-01-14 Blood pressure systolic 126 mmHg 2014-01-14 Blood pressure diastolic 78 mmHg 2014-01-14 MEDICATIONS Unknown Medications RESULTS No Results PROCEDURES No Known procedures INSTRUCTIONS MEDICATIONS ADMINISTERED No Known Medications MEDICAL (GENERAL) HISTORY Type Description Date Medical History attention deficit hyperactivity disorder Medical History Mood disorder Surgical History No Surgical history information Hospitalization History [facility] Pneum[facility] 04/2016
--- OUTSIDE RECORDS SUMMARY | 2020-02-16 14:14 | XMS REPORT ---
Author Author Andrew Machuca Organization [facility] Address Unknown Care Team Providers Care Police Detective Name Role Phone FORD Machuca Unavailable PROBLEMS Type Condition ICD9-CM Code [id number] Code Onset Dates Condition S tatus SNOMED Code Problem Adjustment disorder with anxiety F43.22 Active 96137276 Problem Generalized anxiety disorder F41.1 A ctive 64459144 Problem Attention deficit hyperactivity disorder (ADHD), combi david type F90.2 Active 121932199 Problem Mood disorder F39 Active 233502 05 Problem Attention deficit hyperactiv ity disorder (ADHD), predominantly inattentive type F90.0 Active [id number] ALLERGIES No Information ENCOUNTERS Encounter Location Date Diagnosis [facility] [address] [id number] [address] [place] [address] Jun, [facility] [address] [id number] [address] [place] [address] Apr, [facility] [id number] [place] [address] Apr, Adjustment disorder with anx iety F43.22 [facility] [address] [id number] [address] [place] [address] Apr, Generalized anxiety disorder F41.1 and Attention deficit hyperactivity disorder (ADHD), combined type F90.2 [facility] [address] [facility] [id number] [address] [place] [address] Mar, Generalized anxiety disorder F41.1 and Attention deficit hyperactivity disorder (ADHD), combined type F90.2 [facility] [address] [facility] [id number] [address] [place] [address] Feb, Attention deficit hyperactiv ity disorder (ADHD), combined type F90.2 and Generalized anxiety disorder F41.1 [facility] [address] [facility] [id number] [address] [place] [address] Feb, Adjustment disorder with anx iety F43.22 [facility] [address] [facility] [id number] [address] [place] [address] Jan, Adjustment disorder with anx iety F43.22 [facility] [address] [id number] [address] [place] [address] Aug, Blood in stool K92.1 and His tory of hemorrhoids Z87.19 [place] [address] [id number] [address] [place] [address] Jul, Attention deficit hyperactiv ity disorder (ADHD), combined type F90.2 [place] [address] [id number] [address] [place] [address] Jul, Attention deficit hyperactiv ity disorder (ADHD), combined type F90.2 and Adjustment disorder with anxiety F43.22 [place] [id number] [id number] [address] [place] [address] Jun, Bloody stools K92.1 and Acut e bilateral low back pain without sciatica M54.5 [place] [address] [id number] [address] [place] [address] 08 Jun, 2018 Attention deficit hyperactiv ity disorder (ADHD), combined type F90.2 [place] [address] [id number] [address] [place] [address] May, Attention deficit hyperactiv ity disorder (ADHD), combined type F90.2 [place] [address] [id number] [address] [place] [address] Apr, Attention deficit hyperactiv ity disorder (ADHD), combined type F90.2 [place] [address] [id number] [address] [place] [address] Mar, Attention deficit hyperactiv ity disorder (ADHD), combined type F90.2 [place] [address] [facility] [id number] [address] [place] [address] Mar, Attention deficit hyperactiv ity disorder (ADHD), combined type F90.2 [facility] [address] [facility] [id number] [address] [place] [address] Mar, Attention deficit hyperactiv ity disorder (ADHD), combined type F90.2 and High risk medication use Z79.899 [facility] [address] [id number] [address] [place] [address] 14 Mar, 2018 Gastroenteritis K52.9 [facility] [address] [id number] [address] [place] [address] Feb, Attention deficit hyperactiv ity disorder (ADHD), combined type F90.2 [facility] [address] [id number] [address] [place] [address] Jan, Attention deficit hyperactiv ity disorder (ADHD), combined type F90.2 and High risk medication use Z79.[address] [id number] 13 Sep, 2017 Acute cystitis without hematuria N30.00 and Acute suppurative otitis media of left ear with spontaneous rupture of tympanic membrane, recurrence not specified H66.[address] [id number] Jul, Seborrheic keratoses L82.1 and Mood disorder F39 [address] [id number] Jul, Attention deficit hyperactivity disorder (ADHD), predominantly inattentive type F90.[address] [id number] Jul, Mood disorder F39 [facility] [address] [facility] [id number] [address] [place] [address] 24 Sep, 2016 [facility] [address] [facility] [id number] [address] [place] [address] Aug, [facility] [address] [id number] [address] [place] [address] Jul, [facility] [address] [id number] [address] [place] [address] Jul, [facility] [address] [id number] [address] [place] [address] Jun, Attention deficit hyperactiv ity disorder (ADHD), combined type F90.2 [facility] [address] [id number] [address] [place] [address] May, [facility] [address] [id number] [address] [place] [address] Apr, Attention deficit hyperactiv ity disorder (ADHD), combined type F90.2 [facility] [address] [id number] [address] [place] [address] Mar, Acute non-recurrent maxillar y sinusitis J01.00 [facility] [address] [id number] [address] [place] [address] Mar, Acute non-recurrent maxillar y sinusitis J01.00 [facility] [address] [id number] [address] [place] [address] Mar, [facility] [address] [id number] [address] [place] [address] Feb, Gastroenteritis K52.9 [facility] [address] [id number] [address] [place] [address] Feb, [facility] [address] [id number] [address] [place] [address] Jan, [facility] [address] [id number] [address] [place] [address] December, [facility] [address] [id number] [address] [place] [address] December, Rash R21 [facility] [address] [id number] [address] [place] [address] Nov, [facility] [address] [id number] [address] [place] [address] Nov, [facility] [address] [facility] [id number] [address] [place] [address] Oct, [facility] [address] [id number] [address] [place] [address] Oct, Attention deficit hyperactiv ity disorder (ADHD), combined type F90.2 [facility] [address] [id number] [address] [place] [address] Sep, [facility] [address] [id number] [address] [place] [address] Sep, Viral syndrome B34.9 and HSV (herpes simplex virus) infection B00.9 [facility] [address] [id number] [address] [place] [address] Aug, [facility] [id number] [place] [address] Aug, [facility] [address] [id number] [address] [place] [address] Jul, [facility] [id number] [place] [address] Jun, Gastroenteritis K52.9 [facility] [address] [id number] [address] [place] [address] Jun, [facility] [address] [id number] [place] [address] Jun, Attention deficit hyperactiv ity disorder (ADHD), combined type F90.2 [facility] [address] [facility] [id number] [address] [place] [address] Jun, [facility] [address] [id number] [address] [place] [address] May, 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 [facility] [address] [id number] [address] [place] [address] May, [facility] [address] [id number] [address] [place] [address] 08 Apr, 2015 [facility] [address] [id number] [address] [place] [address] Mar, [facility] [address] [id number] [address] [place] [address] Feb, [facility] [address] [id number] [address] [place] [address] Jan, Poison janneth 692.6 [facility] [address] [id number] [address] [place] [address] Jan, Attention deficit disorder ( ADD) 314.00 [facility] [address] [id number] [address] [place] [address] Jan, [facility] [address] [id number] [address] [place] [address] Jan, Poison janneth dermatitis 692.6 [facility] [address] [id number] [address] [place] [address] December, [facility] [address] [id number] [address] [place] [address] Nov, [facility] [address] [id number] [address] [place] [address] Nov, [facility] [address] [id number] [address] [place] [address] Oct, [facility] [address] [id number] [address] [place] [address] Oct, [facility] [address] [id number] [address] [place] [address] Oct, [facility] [address] [id number] [address] [place] [address] Oct, [facility] [address] [id number] [address] [place] [address] Oct, [facility] [address] [id number] [address] [place] [address], [place] [address] Oct, [facility] [address] [id number] [address] [place] [address], [place] [address] Oct, [facility] [address] [id number] [address] [place] [address], [place] [address] Oct, [facility] [address] [id number] [address] [place] [address], [place] [address] Sep, [facility] [address] [id number] [address] [place] [address], [place] [address] Sep, [facility] [address] [id number] [address] [place] [address], [place] [address] Aug, [facility] [address] [id number] [address] [place] [address], [place] [address] Aug, [facility] [address] [id number] [address] [place] [address], [place] [address] Aug, [facility] [address] [id number] [address] [place] [address], [place] [address] Aug, [facility] [address] [id number] [address] [place] [address], [place] [address] Aug, [facility] [address] [id number] [address] [place] [address], [place] [address] Aug, [facility] [address] [id number] [address] [place] [address], [place] [address] Jul, [facility] [address] [id number] [address] [place] [address], [place] [address] Jul, [facility] [address] [id number] [address] [place] [address], [place] [address] Jun, [facility] [address] [id number] [address] [place] [address], [place] [address] Jun, [facility] [address] [id number] [address] [place] [address], [place] [address] Jun, [facility] [address] [id number] [address] [place] [address], [place] [address] Jun, [facility] [address] [id number] [address] [place] [address], [place] [address] May, [facility] [address] [id number] [address] [place] [address], [place] [address] May, [facility] [address] [id number] [address] [place] [address], [place] [address] Apr, [facility] [address] [id number] [address] [place] [address], [place] [address] Apr, [facility] [address] [id number] [address] [place] [address], [place] [address] Mar, [facility] [address] [id number] [address] [place] [address], [place] [address] Mar, [facility] [address] [id number] [address] [place] [address], [place] [address] Feb, [facility] [address] [id number] [address] [place] [address], [place] [address] Feb, [facility] [address] [id number] [address] [place] [address], [place] [address] Feb, [facility] [address] [id number] [address] [place] [address], [place] [address] Feb, [facility] [address] [id number] [address] [place] [address], [place] [address] Jan, [facility] [address] [id number] [address] [place] [address], [place] [address] Jan, [facility] [address] [id number] [address] [place] [address], [place] [address] Jan, [facility] [address] [id number] [address] [place] [address], [place] [address] Jan, [facility] [address] [id number] [address] [place] [address], [place] [address] December, [facility] [address] [id number] [address] [place] [address], [place] [address] December, [facility] [address] [id number] [address] [place] [address], [place] [address] December, [facility] [address] [id number] [address] [place] [address], [place] [address] December, [facility] [address] [id number] [address] [place] [address], [place] [address] Nov, [facility] [address] [id number] [address] [place] [address], [place] [address] Nov, [facility] [address] [id number] [address] [place] [address], [place] [address] Oct, [facility] [address] [id number] [address] [place] [address], [place] [address] Oct, [facility] [address] [id number] [address] [place] [address], [place] [address] Sep, [facility] [address] [id number] [address] [place] [address], [place] [address] Sep, [facility] [address] [id number] [address] [place] [address], [place] [address] Aug, [facility] [address] [id number] [address] [place] [address], [place] [address] Aug, [facility] [address] [id number] [address] [place] [address], [place] [address] Jul, [facility] [address] [id number] [address] [place] [address], [place] [address] Jul, [facility] [address] [id number] [address] [place] [address], [place] [address] Jun, [facility] [address] [id number] [address] [place] [address], [place] [address] Jun, [facility] [address] [id number] [address] [place] [address], [place] [address] Jun, [facility] [address] [id number] [address] [place] [address], [place] [address] Jun, [facility] [address] [id number] [address] [place] [address], [place] [address] May, [facility] [address] [id number] [address] [place] [address], [place] [address] May, [facility] [address] [id number] [address] [place] [address], [place] [address] May, [facility] [address] [id number] [address] [place] [address], [place] [address] Apr, [facility] [address] [id number] [address] [place] [address], [place] [address] Mar, [facility] [address] [id number] [address] [place] [address], [place] [address] Mar, [facility] [address] [id number] [address] [place] [address], [place] [address] Mar, [facility] [address] [id number] [address] [place] [address], [place] [address] Mar, [facility] [address] [id number] [address] [place] [address], [place] [address] Feb, [facility] [address] [id number] [address] [place] [address], [place] [address] Feb, [facility] [address] [id number] [address] [place] [address], [place] [address] Feb, [facility] [address] [id number] [address] [place] [address], [place] [address] Jan, [facility] [address] [id number] [address] [place] [address], [place] [address] Jan, [facility] [address] [id number] [address] [place] [address], [place] [address] December, [facility] [address] [id number] [address] [place] [address], [place] [address] Nov, [facility] [address] [id number] [address] [place] [address], [place] [address] Nov, [facility] [address] [id number] [address] [place] [address], [place] [address] Oct, [facility] [address] [id number] [address] [place] [address], [place] [address] Oct, [facility] [address] [id number] [address] [place] [address], [place] [address] Oct, [facility] [address] [id number] [address] [place] [address], [place] [address] Sep, [facility] [address] [id number] [address] [place] [address], [place] [address] Sep, [facility] [address] [id number] [address] [place] [address], [place] [address] Aug, [facility] [address] [id number] [address] [place] [address], [place] [address] Jun, [facility] [address] [id number] [address] [place] [address], [place] [address] Jun, [facility] [address] [id number] [address] [place] [address], [place] [address] Jun, [facility] [address] [id number] [address] [place] [address], [place] [address] Jun, [facility] [address] [id number] [address] [place] [address], [place] [address] Jun, [facility] [address] [id number] [address] [place] [address], [place] [address] Jun, [facility] [address] [id number] [address] [place] [address], [place] [address] Jun, [facility] [address] [id number] [address] [place] [address], [place] [address] Jun, [facility] [address] [id number] [address] [place] [address], [place] [address] May, [facility] [address] [id number] [address] [place] [address], [place] [address] May, [facility] [address] [id number] [address] [place] [address], [place] [address] May, [facility] [address] [id number] [address] [place] [address], [place] [address] May, [facility] [address] [id number] [address] [place] [address], [place] [address] May, [facility] [address] [id number] [address] [place] [address], [place] [address] May, [facility] [address] [id number] [address] [place] [address], [place] [address] Apr, [facility] [address] [id number] [address] [place] [address], [place] [address] Apr, [facility] [address] [id number] [address] [place] [address], [place] [address] Mar, [facility] [address] [id number] [address] [place] [address], [place] [address] Feb, [facility] [address] [id number] [address] [place] [address], [place] [address] Jan, [facility] [address] [id number] [address] [place] [address], [place] [address] December, [facility] [address] [id number] [address] [place] [address], [place] [address] Nov, [facility] [address] [id number] [address] [place] [address], [place] [address] Oct, [facility] [address] [id number] [address] [place] [address], [place] [address] 15 Oct, 2011 [facility] [address] [id number] [address] [place] [address], [place] [address] 10 Aug, 2011 [facility] [address] [id number] [address] [place] [address], [place] [address] 22 Jul, 2011 [facility] [address] [id number] [address] [place] [address], [place] [address] 15 Jun, 2011 [facility] [address] [id number] [address] [place] [address], [place] [address] 14 Jun, 2011 [facility] [address] [id number] [address] [place] [address], [place] [address] 31 May, 2011 [facility] [address] [id number] [address] [place] [address], [place] [address] 31 May, 2011 [facility] [address] [id number] [address] [place] [address], [place] [address] 12 Aug, 2010 [facility] [address] [id number] [address] [place] [address], [place] [address] 29 Jul, 2010 [facility] [address] [id number] [address] [place] [address], [place] [address] Jul, [facility] [address] [id number] [address] [place] [address], [place] [address] 17 Jun, 2010 [facility] [address] [id number] [address] [place] [address], [place] [address] 17 Jun, 2010 [facility] [address] [id number] [address] [place] [address], [place] [address] 11 Jun, 2010 [facility] [address] [id number] [address] [place] [address], [place] [address] 04 Jun, 2010 [facility] [address] [id number] [address] [place] [address], [place] [address] 03 Jun, 2010 [facility] [address] [id number] [address] [place] [address], [place] [address] 18 May, 2010 [facility] [address] [facility] [id number] [place] [id number] May, [facility] [address] [facility] [id number] [address] [place] [id number] May, IMMUNIZATIONS No Known Immunizations SOCIAL HISTORY [...]
--- OUTSIDE RECORDS SUMMARY | 2020-02-16 14:15 | XMS REPORT ---
Author Author Andrew COX Organization [facility] Address [address] [place] [address] Care Team Providers Care Optics Technical Officer Name Role Phone ANETA COX Unavailable PROBLEMS Type Condition ICD9-CM Code PMS96-QN Code Onset Dates Condition S tatus SNOMED Code Problem Adjustment disorder with anxiety F43.22 Active 31949164 Problem Generalized anxiety disorder F41.1 A ctive 58267725 Problem Attention deficit hyperactivity disorder (ADHD), combi david type F90.2 Active 429433326 Problem Mood disorder F39 Active 896366 05 Problem Attention deficit hyperactiv ity disorder (ADHD), predominantly inattentive type F90.0 Active [id number] ALLERGIES No Information ENCOUNTERS Encounter Location Date Diagnosis [place] [address] [address] Apr, [place] [address] [address] Apr, [place] [address] [address] Mar, Generalized anxiety disorder F41.1 and Attention deficit hyperactivity disorder (ADHD), combined type F90.2 [place] [address] [address] [place] [id number] [place] [address] Feb, Attention deficit hyperactiv ity disorder (ADHD), combined type F90.2 and Generalized anxiety disorder F41.1 [place] [address] [address] Feb, Adjustment disorder with anx iety F43.22 [place] [address] [address] [place] [id number] [address] [place] [phone] Jan, Adjustment disorder with anx iety F43.22 [place] [address] [address] [place] [id number] [address] [place] [id number] 02 Aug, 2018 Blood in stool K92.1 and His tory of hemorrhoids Z87.19 [facility] [address] [facility] [id number] [address] [place] [phone] Jul, Attention deficit hyperactiv ity disorder (ADHD), combined type F90.2 [facility] [address] [place] [id number] [address] [place] [address] Jul, Attention deficit hyperactiv ity disorder (ADHD), combined type F90.2 and Adjustment disorder with anxiety F43.22 [place] [address] [address] [place] [id number] [address] [place] [phone] Jun, Bloody stools K92.1 and Acut e bilateral low back pain without sciatica M54.5 [place] [address] [address] [place] [id number] [address] [place] [phone] Jun, Attention deficit hyperactiv ity disorder (ADHD), combined type F90.2 [facility] [address] [place] [id number] [address] [place] [phone] 15 May, 2018 Attention deficit hyperactiv ity disorder (ADHD), combined type F90.2 [facility] [address] [place] [id number] [address] [place] [phone] Apr, Attention deficit hyperactiv ity disorder (ADHD), combined type F90.2 [facility] [address] [place] [id number] [address] [place] [phone] Mar, Attention deficit hyperactiv ity disorder (ADHD), combined type F90.2 [facility] [address] [place] [id number] [address] [place] [address] Mar, Attention deficit hyperactiv ity disorder (ADHD), combined type F90.2 [facility] [address] [place] [id number] [address] [place] [phone] Mar, Attention deficit hyperactiv ity disorder (ADHD), combined type F90.2 and High risk medication use Z79.899 [facility] [address] [facility] [id number] [address] [place] [phone] 14 Mar, 2018 Gastroenteritis K52.9 [facility] [address] [facility] [id number] [address] [place] [address] Feb, Attention deficit hyperactiv ity disorder (ADHD), combined type F90.2 [facility] [address] [facility] [id number] [address] [place] [address] Jan, Attention deficit hyperactiv ity disorder (ADHD), combined type F90.2 and High risk medication use Z79.899 [place] [address] [place], [place] [id number] 13 Sep, 2017 Acute cystitis without hematuria N30.00 and Acute suppurative otitis media of left ear with spontaneous rupture of tympanic membrane, recurrence not specified H66.[address] [id number] Jul, Seborrheic keratoses L82.1 and Mood disorder F39 [address] [id number] Jul, Attention deficit hyperactivity disorder (ADHD), predominantly inattentive type F90.[address] [id number] Jul, Mood disorder F39 [facility] [address] [facility] [id number] [address] [place] [phone] Sep, [facility] [address] [facility] [id number] [address] [place] [phone] Aug, [facility] [address] [facility] [id number] [address] [place] [address] Jul, [facility] [address] [facility] [id number] [address] [place] [phone] Jul, [facility] [address] [facility] [id number] [address] [place] [phone] Jun, Attention deficit hyperactiv ity disorder (ADHD), combined type F90.2 [facility] [address] [id number] [address] [place] [phone] May, [facility] [address] [id number] [address] [place] [phone] Apr, Attention deficit hyperactiv ity disorder (ADHD), combined type F90.2 [facility] [address] [id number] [address] [place] [address] Mar, Acute non-recurrent maxillar y sinusitis J01.00 [facility] [address] [id number] [address] [place] [address] Mar, Acute non-recurrent maxillar y sinusitis J01.00 [facility] [address] [id number] [address] [place] [address] Mar, [facility] [address] [facility] [id number] [address] [place] [phone] Feb, Gastroenteritis K52.9 [facility] [address] [id number] [address] [place] [phone] Feb, [facility] [address] [id number] [address] [place] [phone] Jan, [facility] [address] [id number] [address] [place] [phone] December, [facility] [address] [id number] [address] [place] [address] December, Rash R21 [facility] [address] [id number] [address] [place] [phone] Nov, [facility] [address] [id number] [address] [place] [phone] Nov, [facility] [address] [id number] [address] [place] [phone] Oct, [facility] [address] [id number] [address] [place] [phone] Oct, Attention deficit hyperactiv ity disorder (ADHD), combined type F90.2 [facility] [address] [facility] [id number] [address] [place] [phone] Sep, [facility] [address] [facility] [id number] [address] [place] [phone] Sep, Viral syndrome B34.9 and HSV (herpes simplex virus) infection B00.9 [facility] [address] [facility] [id number] [address] [place] [phone] Aug, [facility] [address] [facility] [id number] [address] [place] [phone] Aug, [facility] [address] [place] [id number] [address] [place] [phone] Jul, [facility] [address] [place] [id number] [address] [place] [phone] Jun, Gastroenteritis K52.9 [facility] [address] [place] [id number] [address] [place] [phone] Jun, [facility] [address] [place] [id number] [address] [place] [phone] Jun, Attention deficit hyperactiv ity disorder (ADHD), combined type F90.2 [facility] [address] [facility] [id number] [address] [place] [phone] Jun, [facility] [address] [facility] [id number] [address] [place] [address] May, 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 [facility] [address] [facility] [id number] [address] [place] [phone] May, [facility] [address] [place] [id number] [address] [place] [phone] Apr, [facility] [address] [facility] [id number] [address] [place] [phone] Mar, [facility] [address] [facility] [id number] [address] [place] [phone] Feb, [facility] [address] [id number] [address] [place] [phone] Jan, Poison janneth 692.6 [facility] [address] [id number] [address] [place] [phone] Jan, Attention deficit disorder ( ADD) 314.00 [facility] [address] [id number] [address] [place] [phone] Jan, [facility] [address] [id number] [address] [place] [address] Jan, Poison janneth dermatitis 692.6 [facility] [address] [id number] [address] [place] [phone] December, [facility] [address] [id number] [address] [place] [phone] Nov, [facility] [address] [id number] [address] [place] [phone] Nov, [facility] [address] [id number] [address] [place] [phone] Oct, [facility] [address] [id number] [address] [place] [phone] Oct, [facility] [address] [id number] [address] [place] [phone] Oct, [facility] [address] [id number] [address] [place] [phone] Oct, [facility] [address] [id number] [address] [place] [phone] Oct, [facility] [address] [id number] [address] [place] [phone] Oct, [facility] [address] [id number] [address] [place] [phone] Oct, [facility] [address] [id number] [address] [place] [phone] Oct, [facility] [address] [id number] [address] [place] [address], [place] [address] Sep, [facility] [address] [id number] [address] [place] [address], [place] [address] Sep, [facility] [address] [id number] [address] [place] [address], [place] [address] Aug, [facility] [address] [id number] [address] [place] [address], [place] [address] Aug, [facility] [address] [id number] [address] [place] [address], [place] [address] Aug, [facility] [address] [id number] [address] [place] [address], [place] [address] Aug, [facility] [address] [id number] [address] [place] [address], [place] [address] Aug, [facility] [address] [id number] [address] [place] [address], [place] [address] Aug, [facility] [address] [id number] [address] [place] [address], [place] [address] Jul, [facility] [address] [id number] [address] [place] [address], [place] [address] Jul, [facility] [address] [id number] [address] [place] [address], [place] [address] Jun, [facility] [address] [id number] [address] [place] [phone] Jun, [facility] [address] [id number] [address] [place] [address], [place] [address] Jun, [facility] [address] [id number] [address] [place] [address], [place] [address] Jun, [facility] [address] [id number] [address] [place] [address], [place] [address] May, [facility] [address] [id number] [address] [place] [address], [place] [address] May, [facility] [address] [id number] [address] [place] [address], [place] [address] Apr, [facility] [address] [id number] [address] [place] [address], [place] [address] Apr, [facility] [address] [id number] [address] [place] [address], [place] [address] Mar, [facility] [address] [id number] [address] [place] [address], [place] [address] Mar, [facility] [address] [id number] [address] [place] [address], [place] [address] Feb, [facility] [address] [id number] [address] [place] [address], [place] [address] Feb, [facility] [address] [id number] [address] [place] [address], [place] [address] Feb, [facility] [address] [id number] [address] [place] [address], [place] [address] Feb, [facility] [address] [id number] [address] [place] [address], [place] [address] Jan, [facility] [address] [id number] [address] [place] [address], [place] [address] Jan, [facility] [address] [id number] [address] [place] [address], [place] [address] Jan, [facility] [address] [id number] [address] [place] [address], [place] [address] Jan, [facility] [address] [id number] [address] [place] [address], [place] [address] December, [facility] [address] [id number] [address] [place] [address], [place] [address] December, [facility] [address] [id number] [address] [place] [address], [place] [address] December, [facility] [address] [id number] [address] [place] [address], [place] [address] December, [facility] [address] [id number] [address] [place] [address], [place] [address] Nov, [facility] [address] [id number] [address] [place] [address], [place] [address] Nov, [facility] [address] [id number] [address] [place] [address], [place] [address] Oct, [facility] [address] [id number] [address] [place] [address], [place] [address] Oct, [facility] [address] [id number] [address] [place] [address], [place] [address] Sep, [facility] [address] [id number] [address] [place] [address], [place] [address] Sep, [facility] [address] [id number] [address] [place] [address], [place] [address] Aug, [facility] [address] [id number] [address] [place] [address], [place] [address] Aug, [facility] [address] [id number] [address] [place] [address], [place] [address] Jul, [facility] [address] [id number] [address] [place] [address], [place] [address] Jul, [facility] [address] [id number] [address] [place] [address], [place] [address] Jun, [facility] [address] [id number] [address] [place] [address], [place] [address] Jun, [facility] [address] [id number] [address] [place] [address], [place] [address] Jun, [facility] [address] [id number] [address] [place] [address], [place] [address] Jun, [facility] [address] [id number] [address] [place] [address], [place] [address] May, [facility] [address] [id number] [address] [place] [address], [place] [address] May, [facility] [address] [id number] [address] [place] [address], [place] [address] May, [facility] [address] [id number] [address] [place] [address], [place] [address] Apr, [facility] [address] [id number] [address] [place] [address], [place] [address] Mar, [facility] [address] [id number] [address] [place] [address], [place] [address] Mar, [facility] [address] [id number] [address] [place] [address], [place] [address] Mar, [facility] [address] [id number] [address] [place] [address], [place] [address] Mar, [facility] [address] [id number] [address] [place] [address], [place] [address] Feb, [facility] [address] [id number] [address] [place] [address], [place] [address] Feb, [facility] [address] [id number] [address] [place] [address], [place] [address] Feb, [facility] [address] [id number] [address] [place] [address], [place] [address] Jan, [facility] [address] [id number] [address] [place] [address], [place] [address] Jan, [facility] [address] [id number] [address] [place] [address], [place] [address] December, [facility] [address] [id number] [address] [place] [address], [place] [address] 24 Nov, 2012 [facility] [address] [id number] [address] [place] [address], [place] [address] Nov, [facility] [address] [id number] [address] [place] [address], [place] [address] Oct, [facility] [address] [id number] [address] [place] [address], [place] [address] Oct, [facility] [address] [id number] [address] [place] [address], [place] [address] Oct, [facility] [address] [id number] [address] [place] [address], [place] [address] Sep, [facility] [address] [id number] [address] [place] [address], [place] [address] Sep, [facility] [address] [id number] [address] [place] [address], [place] [address] Aug, [facility] [address] [id number] [address] [place] [address], [place] [address] Jun, [facility] [address] [id number] [address] [place] [address], [place] [address] Jun, [facility] [address] [id number] [address] [place] [address], [place] [address] Jun, [facility] [address] [id number] [address] [place] [address], [place] [address] Jun, [facility] [address] [id number] [address] [place] [address], [place] [address] Jun, [facility] [address] [id number] [address] [place] [address], [place] [address] Jun, [facility] [address] [id number] [address] [place] [address], [place] [address] Jun, [facility] [address] [id number] [address] [place] [address], [place] [address] Jun, [facility] [address] [id number] [address] [place] [address], [place] [address] May, [facility] [address] [id number] [address] [place] [address], [place] [address] May, [facility] [address] [id number] [address] [place] [address], [place] [address] May, [facility] [address] [id number] [address] [place] [address], [place] [address] May, [facility] [address] [id number] [address] [place] [address], [place] [address] May, [facility] [address] [id number] [address] [place] [address], [place] [address] May, [facility] [address] [id number] [address] [place] [address], [place] [address] 08 Apr, 2012 [facility] [address] [id number] [address] [place] [address], [place] [address] 06 Apr, 2012 [facility] [address] [id number] [address] [place] [address], [place] [address] Mar, [facility] [address] [id number] [address] [place] [address], [place] [address] Feb, [facility] [address] [id number] [address] [place] [address], [place] [address] Jan, [facility] [address] [id number] [address] [place] [address], [place] [address] December, [facility] [address] [id number] [address] [place] [address], [place] [address] Nov, [facility] [address] [id number] [address] [place] [address], [place] [address] 24 Oct, 2011 [facility] [address] [id number] [address] [place] [address], [place] [address] Oct, [facility] [address] [id number] [address] [place] [address], [place] [address] Aug, [facility] [address] [id number] [address] [place] [address], [place] [address] Jul, [facility] [address] [id number] [address] [place] [id number] 15 Jun, 2011 [facility] [address] [id number] [address] [place] [id number] 14 Jun, 2011 [facility] [address] [id number] [address] [place] [id number] 31 May, 2011 [facility] [address] [id number] [address] [place] [id number] 31 May, 2011 [facility] [address] [id number] [address] [place] [phone] Aug, [facility] [address] [id number] [address] [place] [id number] Jul, [facility] [address] [id number] [address] [place] [id number] Jul, [facility] [address] [id number] [address] [place] [id number] Jun, [facility] [address] [id number] [address] [place] [id number] 17 Jun, 2010 [facility] [address] [id number] [address] [place] [id number] Jun, [facility] [address] [id number] [address] [place] [id number] 04 Jun, 2010 [facility] [address] [id number] [address] [place] [id number] Jun, [facility] [address] [id number] [address] [place] [id number] 18 May, 2010 [facility] [address] [id number] [address] [place] [id number] 15 May, 2010 [facility] [facility] [address] [id number] [address] [place] [id number] 15 May, 2010 IMMUNIZATIONS No Known Immunizations SOCIAL HISTORY Never Assessed REASON FOR VISIT PLAN OF CARE VITAL SIGNS Height 69 in 2014-06-27 Weight 199 lbs 2014-06-27 Temperature 99.1 degrees Fahrenheit 2014-06-27 Heart Rate 80 bpm 2014-06-27 Respiratory Rate 20 2014-06-27 Blood pressure systolic 128 mmHg 2014-06-27 Blood pressure diastolic 68 mmHg 2014-06-27 MEDICATIONS Unknown Medications RESULTS No Results PROCEDURES No Known procedures INSTRUCTIONS MEDICATIONS ADMINISTERED No Known Medications MEDICAL (GENERAL) HISTORY Type Description Date Medical History attention deficit hyperactivity disorder Medical History Mood disorder Surgical History No Surgical history information Hospitalization History [facility] P[facility] 04/2016
--- OUTSIDE RECORDS SUMMARY | 2020-02-16 14:15 | XMS REPORT ---
Author Author Andrew COX Organization [facility] Address [address] [place] [address] Care Team Providers Care Artist Woodblock Name Role Phone ANETA COX Unavailable PROBLEMS Type Condition ICD9-CM Code ETR33-MI Code Onset Dates Condition S tatus SNOMED Code Problem Adjustment disorder with anxiety F43.22 Active 37046848 Problem Generalized anxiety disorder F41.1 A ctive 14557100 Problem Attention deficit hyperactivity disorder (ADHD), combi david type F90.2 Active 685121071 Problem Mood disorder F39 Active 695909 05 Problem Attention deficit hyperactiv ity disorder (ADHD), predominantly inattentive type F90.0 Active [id number] ALLERGIES No Information ENCOUNTERS Encounter Location Date Diagnosis [place] [address] [place] [id number] [place] [id number] Mar, [place] [address] [address] Feb, Attention deficit hyperactiv ity disorder (ADHD), combined type F90.2 and Generalized anxiety disorder F41.1 [place] [address] [place] [id number] [address] [place] [id number] Feb, Adjustment disorder with anx iety F43.22 [place] [address] [place] [id number] [address] [place] [id number] Jan, Adjustment disorder with anx iety F43.22 [place] [address] [place] [id number] [address] [place] [id number] Aug, Blood in stool K92.1 and His tory of hemorrhoids Z87.19 [place] [address] [place] [id number] [address] [place] [id number] Jul, Attention deficit hyperactiv ity disorder (ADHD), combined type F90.2 [facility] [address] [facility] [id number] [address] [place] [id number] 19 Jul, 2018 Attention deficit hyperactiv ity disorder (ADHD), combined type F90.2 and Adjustment disorder with anxiety F43.22 [facility] [address] [facility] [id number] [address] [place] [id number] 26 Jun, 2018 Bloody stools K92.1 and Acut e bilateral low back pain without sciatica M54.5 [facility] [address] [facility] [id number] [address] [place] [id number] 08 Jun, 2018 Attention deficit hyperactiv ity disorder (ADHD), combined type F90.2 [facility] [address] [place] [id number] [address] [place] [id number] 15 May, 2018 Attention deficit hyperactiv ity disorder (ADHD), combined type F90.2 [facility] [address] [place] [id number] [address] [place] [phone] 10 Apr, 2018 Attention deficit hyperactiv ity disorder (ADHD), combined type F90.2 [facility] [address] [facility] [id number] [address] [place] [id number] Mar, Attention deficit hyperactiv ity disorder (ADHD), combined type F90.2 [facility] [address] [place] [id number] [address] [place] [id number] 14 Mar, 2018 Attention deficit hyperactiv ity disorder (ADHD), combined type F90.2 [facility] [address] [facility] [id number] [address] [place] [id number] 14 Mar, 2018 Attention deficit hyperactiv ity disorder (ADHD), combined type F90.2 and High risk medication use Z79.899 [facility] [address] [facility] [id number] [address] [place] [id number] 14 Mar, 2018 Gastroenteritis K52.9 [facility] [address] [facility] [id number] [address] [place] [id number] Feb, Attention deficit hyperactiv ity disorder (ADHD), combined type F90.2 [facility] [address] [id number] [address] [place] [id number] Jan, Attention deficit hyperactiv ity disorder (ADHD), combined type F90.2 and High risk medication use Z79.899 [place] [address] [place], [place] [id number] 13 Sep, 2017 Acute cystitis without hematuria N30.00 and Acute suppurative otitis media of left ear with spontaneous rupture of tympanic membrane, recurrence not specified H66.012 [place] [address] [place], [place] [id number] 57 Jul, Seborrheic keratoses L82.1 and Mood disorder F39 [address] [id number] Jul, Attention deficit hyperactivity disorder (ADHD), predominantly inattentive type F90.[address] [id number] Jul, Mood disorder F39 [facility] [address] [facility] [id number] [address] [place] [phone] Sep, [facility] [address] [facility] [id number] [address] [place] [phone] Aug, [facility] [address] [facility] [id number] [address] [place] [phone] Jul, [facility] [address] [facility] [id number] [address] [place] [phone] Jul, [facility] [address] [facility] [id number] [address] [place] [id number] Jun, Attention deficit hyperactiv ity disorder (ADHD), combined type F90.2 [facility] [address] [id number] [address] [place] [phone] May, [facility] [address] [facility] [id number] [address] [place] [id number] 12 Apr, 2016 Attention deficit hyperactiv ity disorder (ADHD), combined type F90.2 [facility] [address] [facility] [id number] [address] [place] [id number] Mar, Acute non-recurrent maxillar y sinusitis J01.00 [facility] [address] [id number] [address] [place] [phone] Mar, Acute non-recurrent maxillar y sinusitis J01.00 [facility] [address] [facility] [id number] [address] [place] [phone] Mar, [facility] [address] [id number] [address] [place] [id number] Feb, Gastroenteritis K52.9 [facility] [address] [id number] [address] [place] [phone] Feb, [facility] [address] [facility] [id number] [address] [place] [phone] Jan, [facility] [address] [facility] [id number] [address] [place] [phone] December, [facility] [address] [facility] [id number] [address] [place] [phone] December, Rash R21 [facility] [address] [facility] [id number] [address] [place] [phone] Nov, [facility] [address] [facility] [id number] [address] [place] [phone] Nov, [facility] [address] [facility] [id number] [address] [place] [phone] Oct, [facility] [address] [facility] [id number] [address] [place] [phone] Oct, Attention deficit hyperactiv ity disorder (ADHD), combined type F90.2 [facility] [address] [facility] [id number] [address] [place] [phone] Sep, [facility] [address] [facility] [id number] [address] [place] [phone] Sep, Viral syndrome B34.9 and HSV (herpes simplex virus) infection B00.9 [facility] [address] [facility] [id number] [address] [place] [phone] Aug, [facility] [address] [facility] [id number] [address] [place] [phone] Aug, [facility] [address] [facility] [id number] [address] [place] [id number] Jul, [facility] [address] [facility] [id number] [address] [place] [phone] Jun, Gastroenteritis K52.9 [facility] [address] [place] [id number] [address] [place] [phone] Jun, [facility] [address] [place] [id number] [address] [place] [phone] Jun, Attention deficit hyperactiv ity disorder (ADHD), combined type F90.2 [facility] [address] [place] [id number] [address] [place] [phone] Jun, [facility] [address] [facility] [id number] [address] [place] [id number] May, 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 [facility] [address] [place] [id number] [address] [place] [phone] May, [facility] [address] [place] [id number] [address] [place] [phone] Apr, [facility] [address] [facility] [id number] [address] [place] [phone] Mar, [facility] [address] [facility] [id number] [address] [place] [id number] Feb, [facility] [address] [place] [id number] [address] [place] [id number] Jan, Poison janneth 692.6 [facility] [address] [place] [id number] [address] [place] [id number] Jan, Attention deficit disorder ( ADD) 314.00 [facility] [address] [id number] [address] [place] [address], [place] [address] Jan, [facility] [address] [id number] [address] [place] [address], [place] [address] Jan, Anni janneth aruna 692.6 [facility] [address] [id number] [address] [place] [address], [place] [address] December, [facility] [address] [id number] [address] [place] [address], [place] [address] Nov, [facility] [address] [id number] [address] [place] [address], [place] [address] Nov, [facility] [address] [id number] [address] [place] [id number] Oct, [facility] [address] [id number] [address] [place] [address], [place] [address] Oct, [facility] [address] [id number] [address] [place] [phone] Oct, [facility] [address] [id number] [address] [place] [address], [place] [address] Oct, [facility] [address] [id number] [address] [place] [phone] Oct, [facility] [address] [id number] [address] [place] [phone] Oct, [facility] [address] [id number] [address] [place] [phone] Oct, [facility] [address] [id number] [address] [place] [address], [place] [address] Oct, [facility] [address] [id number] [address] [place] [phone] Sep, [facility] [address] [id number] [address] [place] [phone] Sep, [facility] [address] [id number] [address] [place] [address], [place] [address] Aug, [facility] [address] [id number] [address] [place] [address], [place] [address] Aug, [facility] [address] [id number] [address] [place] [address], [place] [address] Aug, [facility] [address] [id number] [address] [place] [address], [place] [address] Aug, [facility] [address] [id number] [address] [place] [address], [place] [address] Aug, [facility] [address] [id number] [address] [place] [address], [place] [address] Aug, [facility] [address] [id number] [address] [place] [address], [place] [address] Jul, [facility] [address] [id number] [address] [place] [address], [place] [address] Jul, [facility] [address] [id number] [address] [place] [address], [place] [address] Jun, [facility] [address] [id number] [address] [place] [address], [place] [address] Jun, [facility] [address] [id number] [address] [place] [address], [place] [address] Jun, [facility] [address] [id number] [address] [place] [address], [place] [address] Jun, [facility] [address] [id number] [address] [place] [address], [place] [address] May, [facility] [address] [id number] [address] [place] [address], [place] [address] May, [facility] [address] [id number] [address] [place] [address], [place] [address] Apr, [facility] [address] [id number] [address] [place] [address], [place] [address] Apr, [facility] [address] [id number] [address] [place] [address], [place] [address] Mar, [facility] [address] [id number] [address] [place] [address], [place] [address] Mar, [facility] [address] [id number] [address] [place] [address], [place] [address] Feb, [facility] [address] [id number] [address] [place] [address], [place] [address] Feb, [facility] [address] [id number] [address] [place] [address], [place] [address] Feb, [facility] [address] [id number] [address] [place] [address], [place] [address] Feb, [facility] [address] [id number] [address] [place] [address], [place] [address] Jan, [facility] [address] [id number] [address] [place] [address], [place] [address] Jan, [facility] [address] [id number] [address] [place] [address], [place] [address] Jan, [facility] [address] [id number] [address] [place] [address], [place] [address] Jan, [facility] [address] [id number] [address] [place] [address], [place] [address] December, [facility] [address] [id number] [address] [place] [address], [place] [address] December, [facility] [address] [id number] [address] [place] [address], [place] [address] December, [facility] [address] [id number] [address] [place] [address], [place] [address] December, [facility] [address] [id number] [address] [place] [address], [place] [address] Nov, [facility] [address] [id number] [address] [place] [id number] Nov, [facility] [address] [id number] [address] [place] [address], [place] [address] Oct, [facility] [address] [id number] [address] [place] [address], [place] [address] Oct, [facility] [address] [id number] [address] [place] [address], [place] [address] Sep, [facility] [address] [id number] [address] [place] [address], [place] [address] Sep, [facility] [address] [id number] [address] [place] [address], [place] [address] Aug, [facility] [address] [id number] [address] [place] [address], [place] [address] Aug, [facility] [address] [id number] [address] [place] [address], [place] [address] Jul, [facility] [address] [id number] [address] [place] [address], [place] [address] Jul, [facility] [address] [id number] [address] [place] [address], [place] [address] Jun, [facility] [address] [id number] [address] [place] [address], [place] [address] Jun, [facility] [address] [id number] [address] [place] [address], [place] [address] Jun, [facility] [address] [id number] [address] [place] [address], [place] [address] Jun, [facility] [address] [id number] [address] [place] [address], [place] [address] May, [facility] [address] [id number] [address] [place] [address], [place] [address] May, [facility] [address] [id number] [address] [place] [address], [place] [address] May, [facility] [address] [id number] [facility] [place] [address] Apr, [facility] [address] [id number] [address] [place] [address], [place] [address] Mar, [facility] [address] [id number] [address] [place] [address], [place] [address] Mar, [facility] [address] [id number] [address] [place] [address], [place] [address] Mar, [facility] [address] [id number] [address] [place] [address], [place] [address] Mar, [facility] [address] [id number] [address] [place] [address], [place] [address] Feb, [facility] [address] [id number] [address] [place] [address], [place] [address] Feb, [facility] [address] [id number] [address] [place] [address], [place] [address] Feb, [facility] [address] [id number] [address] [place] [address], [place] [address] Jan, [facility] [address] [id number] [address] [place] [address], [place] [address] Jan, [facility] [address] [id number] [address] [place] [address], [place] [address] December, [facility] [address] [id number] [address] [place] [address], [place] [address] Nov, [facility] [address] [id number] [address] [place] [address], [place] [address] Nov, [facility] [address] [id number] [address] [place] [address], [place] [address] Oct, [facility] [address] [id number] [address] [place] [address], [place] [address] Oct, [facility] [address] [id number] [address] [place] [address], [place] [address] Oct, [facility] [address] [id number] [address] [place] [address], [place] [address] Sep, [facility] [address] [id number] [address] [place] [address], [place] [address] Sep, [facility] [address] [id number] [address] [place] [address], [place] [address] Aug, [facility] [address] [id number] [address] [place] [address], [place] [address] Jun, [facility] [address] [id number] [address] [place] [address], [place] [address] Jun, [facility] [address] [id number] [address] [place] [address], [place] [address] Jun, [facility] [address] [id number] [address] [place] [address], [place] [address] Jun, [facility] [address] [id number] [address] [place] [address], [place] [address] Jun, [facility] [address] [id number] [address] [place] [address], [place] [address] Jun, [facility] [address] [id number] [address] [place] [address], [place] [address] Jun, [facility] [address] [id number] [address] [place] [address], [place] [address] Jun, [facility] [address] [id number] [address] [place] [address], [place] [address] May, [facility] [address] [id number] [address] [place] [address], [place] [address] May, [facility] [address] [id number] [address] [place] [address], [place] [address] May, [facility] [address] [id number] [address] [place] [address], [place] [address] May, [facility] [address] [id number] [address] [place] [address], [place] [address] 04 May, 2012 [facility] [address] [id number] [address] [place] [address], [place] [address] 03 May, 2012 [facility] [address] [id number] [address] [place] [address], [place] [address] 08 Apr, 2012 [facility] [address] [id number] [address] [place] [address], [place] [id number] 06 Apr, 2012 [facility] [address] [id number] [address] [place] [address], [place] [id number] Mar, [facility] [address] [id number] [address] [place] [address], [place] [id number] Feb, [facility] [address] [id number] [address] [place] [address], [place] [id number] Jan, [facility] [address] [id number] [address] [place] [address], [place] [id number] December, [facility] [address] [id number] [address] [place] [address], [place] [id number] Nov, [facility] [address] [id number] [address] [place] [address], [place] [id number] 24 Oct, 2011 [facility] [address] [id number] [address] [place] [address], [place] [id number] Oct, [facility] [address] [id number] [address] [place] [address], [place] [id number] Aug, [facility] [address] [id number] [address] [place] [address], [place] [id number] 22 Jul, 2011 [facility] [address] [id number] [address] [place] [address], [place] [id number] 15 Jun, 2011 [facility] [address] [id number] [address] [place] [address], [place] [id number] 14 Jun, 2011 [facility] [address] [id number] [address] [place] [address], [place] [id number] May, [facility] [address] [id number] [address] [place] [id number] May, [facility] [address] [id number] [address] [place] [id number] Aug, [facility] [address] [id number] [address] [place] [id number] Jul, [facility] [address] [id number] [address] [place] [id number] Jul, [facility] [address] [id number] [address] [place] [id number] Jun, [facility] [address] [id number] [address] [place] [id number] Jun, [facility] [address] [id number] [address] [place] [id number] Jun, [facility] [address] [id number] [address] [place] [id number] Jun, [facility] [address] [id number] [address] [place] [id number] Jun, [facility] [address] [id number] [address] [place] [id number] May, [facility] [address] [id number] [address] [place] [id number] May, [facility] [address] [id number] [address] [place] [id number] May, IMMUNIZATIONS No Known Immunizations SOCIAL HISTORY [...]
--- OUTSIDE RECORDS SUMMARY | 2020-02-16 14:15 | XMS REPORT ---
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 [id number] [address] [place] [address] Jun, [facility] [id number] [place] [address] Apr, [facility] [id number] [place] [address] Apr, [facility] [address] [address] Apr, Generalized anxiety disorder F41.1 and Attention deficit hyperactivity disorder (ADHD), combined type F90.2 [facility] [address] [id number] [address] [place] [address] Mar, Generalized anxiety disorder F41.1 and Attention deficit hyperactivity disorder (ADHD), combined type F90.2 [facility] [address] [id number] [address] [place] [address] Feb, Attention deficit hyperactiv ity disorder (ADHD), combined type F90.2 and Generalized anxiety disorder F41.1 [facility] [id number] [address] [place] [address] Feb, Adjustment disorder with anx iety F43.22 [facility] [address] [id number] [address] [place] [address] Jan, Adjustment disorder with anx iety F43.22 [facility] [address] [id number] [address] [place] [address] Aug, Blood in stool K92.1 and His tory of hemorrhoids Z87.19 [place] [id number] [address] [place] [address] Jul, Attention deficit hyperactiv ity disorder (ADHD), combined type F90.2 [place] [id number] [place] [address] Jul, Attention deficit hyperactiv ity disorder (ADHD), combined type F90.2 and Adjustment disorder with anxiety F43.22 [address] [place] [address] [address] Jun, Bloody stools K92.1 and Acut e bilateral low back pain without sciatica M54.5 [place] [address] [id number] [address] [place] [address] Jun, Attention deficit hyperactiv ity disorder (ADHD), combined type F90.2 [place] [id number] [place] [address] May, Attention deficit hyperactiv ity disorder (ADHD), combined type F90.2 [place] [address] [id number] [address] [place] [address] Apr, Attention deficit hyperactiv ity disorder (ADHD), combined type F90.2 [place] [address] [id number] [address] [place] [address] Mar, Attention deficit hyperactiv ity disorder (ADHD), combined type F90.2 [place] [address] [id number] [address] [place] [address] Mar, Attention deficit hyperactiv ity disorder (ADHD), combined type F90.2 [facility] [address] [facility] [id number] [address] [place] [address] Mar, Attention deficit hyperactiv ity disorder (ADHD), combined type F90.2 and High risk medication use Z79.899 [facility] [address] [facility] [id number] [address] [place] [address] 14 Mar, [address] [facility] [address] [facility] [id number] [address] [place] [address] Feb, Attention deficit hyperactiv ity disorder (ADHD), combined type F90.2 [facility] [address] [facility] [id number] [address] [place] [address] Jan, Attention deficit hyperactiv ity disorder (ADHD), combined type F90.2 and High risk medication use Z79.[address] [id number] 13 Sep, 2017 Acute cystitis without hematuria N30.00 and Acute suppurative otitis media of left ear with spontaneous rupture of tympanic membrane, recurrence not specified H66.[address] [id number] Jul, Seborrheic keratoses L82.1 and Mood disorder F39 [address] [id number] Jul, Attention deficit hyperactivity disorder (ADHD), predominantly inattentive type F90.[address] [id number] Jul, Mood disorder F39 [facility] [address] [facility] [id number] [address] [place] [address] Sep, [facility] [address] [facility] [id number] [address] [place] [address] Aug, [facility] [address] [facility] [id number] [address] [place] [address] Jul, [facility] [address] [facility] [id number] [address] [place] [address] Jul, [facility] [address] [id number] [address] [place] [address] Jun, Attention deficit hyperactiv ity disorder (ADHD), combined type F90.2 [facility] [address] [id number] [address] [place] [address] May, [facility] [address] [id number] [address] [place] [address] Apr, Attention deficit hyperactiv ity disorder (ADHD), combined type F90.2 [facility] [address] [id number] [address] [place] [address] Mar, Acute non-recurrent maxillar y sinusitis J01.00 [facility] [address] [id number] [address] [place] [address] Mar, Acute non-recurrent maxillar y sinusitis J01.00 [facility] [address] [id number] [address] [place] [address] Mar, [facility] [address] [id number] [address] [place] [address] Feb, Gastroenteritis K52.9 [facility] [address] [id number] [address] [place] [address] Feb, [facility] [address] [id number] [address] [place] [address] Jan, [facility] [address] [id number] [place] [address] December, [facility] [address] [id number] [address] [place] [address] December, Rash R21 [facility] [address] [id number] [address] [place] [address] Nov, [facility] [address] [id number] [address] [place] [address] Nov, [facility] [address] [id number] [address] [place] [address] Oct, [facility] [address] [facility] [id number] [address] [place] [address] Oct, Attention deficit hyperactiv ity disorder (ADHD), combined type F90.2 [facility] [address] [facility] [id number] [address] [place] [address] Sep, [facility] [address] [facility] [id number] [address] [place] [address] Sep, Viral syndrome B34.9 and HSV (herpes simplex virus) infection B00.9 [facility] [address] [facility] [id number] [address] [place] [address] Aug, [facility] [address] [facility] [id number] [address] [place] [address] Aug, [facility] [address] [id number] [address] [place] [address] Jul, [facility] [address] [facility] [id number] [address] [place] [address] Jun, Gastroenteritis K52.9 [facility] [address] [facility] [id number] [address] [place] [address] Jun, [facility] [address] [facility] [id number] [address] [place] [address] Jun, Attention deficit hyperactiv ity disorder (ADHD), combined type F90.2 [facility] [address] [facility] [id number] [address] [place] [address] Jun, 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 [address] [facility] [id number] [address] [place] [address] May, [facility] [address] [facility] [id number] [address] [place] [address] Apr, [facility] [address] [id number] [address] [place] [address] Mar, [facility] [address] [id number] [address] [place] [address] Feb, [facility] [address] [id number] [address] [place] [address] Jan, Poison janneth 692.6 [facility] [address] [id number] [address] [place] [address] 17 Jan, 2015 Attention deficit disorder ( ADD) 314.00 [facility] [address] [id number] [address] [place] [address] Jan, [facility] [address] [id number] [address] [place] [address] Jan, Poison janneth dermatitis 692.6 [facility] [address] [id number] [address] [place] [address] December, [facility] [address] [id number] [address] [place] [address] Nov, [facility] [address] [id number] [address] [place] [address] Nov, [facility] [address] [id number] [address] [place] [address] Oct, [facility] [address] [id number] [address] [place] [address] Oct, [facility] [address] [id number] [address] [place] [address] Oct, [facility] [address] [id number] [address] [place] [address] Oct, [facility] [address] [id number] [address] [place] [address] Oct, [facility] [address] [id number] [address] [place] [address] Oct, [facility] [address] [id number] [address] [place] [address], [place] [address] Oct, [facility] [address] [id number] [address] [place] [address], [place] [address] Oct, [facility] [address] [id number] [address] [place] [address], [place] [address] Sep, [facility] [address] [id number] [address] [place] [address], [place] [address] Sep, [facility] [address] [id number] [address] [place] [address], [place] [address] Aug, [facility] [address] [id number] [address] [place] [address], [place] [address] Aug, [facility] [address] [id number] [address] [place] [address], [place] [address] Aug, [facility] [address] [id number] [address] [place] [address], [place] [address] Aug, [facility] [address] [id number] [address] [place] [address], [place] [address] Aug, [facility] [address] [id number] [address] [place] [address], [place] [address] Aug, [facility] [address] [id number] [address] [place] [address], [place] [address] Jul, [facility] [address] [id number] [address] [place] [address], [place] [address] Jul, [facility] [address] [id number] [address] [place] [address], [place] [address] Jun, [facility] [address] [id number] [address] [place] [address], [place] [address] Jun, [facility] [address] [id number] [address] [place] [address], [place] [address] Jun, [facility] [address] [id number] [address] [place] [address], [place] [address] Jun, [facility] [address] [id number] [address] [place] [address], [place] [address] May, [facility] [address] [id number] [address] [place] [address], [place] [address] May, [facility] [address] [id number] [address] [place] [address], [place] [address] Apr, [facility] [address] [id number] [address] [place] [address], [place] [address] Apr, [facility] [address] [id number] [address] [place] [address], [place] [address] Mar, [facility] [address] [id number] [address] [place] [address], [place] [address] Mar, [facility] [address] [id number] [address] [place] [address], [place] [address] Feb, [facility] [address] [id number] [address] [place] [address], [place] [address] Feb, [facility] [address] [id number] [address] [place] [address], [place] [address] Feb, [facility] [address] [id number] [address] [place] [address], [place] [address] Feb, [facility] [address] [id number] [address] [place] [address], [place] [address] Jan, [facility] [address] [id number] [address] [place] [address], [place] [address] Jan, [facility] [address] [id number] [address] [place] [address], [place] [address] Jan, [facility] [address] [id number] [address] [place] [address], [place] [address] Jan, [facility] [address] [id number] [address] [place] [address], [place] [address] December, [facility] [address] [id number] [address] [place] [address], [place] [address] December, [facility] [address] [id number] [address] [place] [address], [place] [address] December, [facility] [address] [id number] [address] [place] [address], [place] [address] December, [facility] [address] [id number] [address] [place] [address], [place] [address] Nov, [facility] [address] [id number] [address] [place] [address], [place] [address] Nov, [facility] [address] [id number] [address] [place] [address], [place] [address] Oct, [facility] [address] [id number] [address] [place] [address], [place] [address] Oct, [facility] [address] [id number] [address] [place] [address], [place] [address] Sep, [facility] [address] [id number] [address] [place] [address], [place] [address] Sep, [facility] [address] [id number] [address] [place] [address], [place] [address] Aug, [facility] [address] [id number] [address] [place] [address], [place] [address] Aug, [facility] [address] [id number] [address] [place] [address], [place] [address] Jul, [facility] [address] [id number] [address] [place] [address], [place] [address] Jul, [facility] [address] [id number] [address] [place] [address], [place] [address] Jun, [facility] [address] [id number] [address] [place] [address], [place] [address] Jun, [facility] [address] [id number] [address] [place] [address], [place] [address] Jun, [facility] [address] [id number] [address] [place] [address], [place] [address] Jun, [facility] [address] [id number] [address] [place] [address], [place] [address] May, [facility] [address] [id number] [address] [place] [address], [place] [address] May, [facility] [address] [id number] [address] [place] [address], [place] [address] May, [facility] [address] [id number] [address] [place] [address], [place] [address] Apr, [facility] [address] [id number] [address] [place] [address], [place] [address] Mar, [facility] [address] [id number] [address] [place] [address], [place] [address] Mar, [facility] [address] [id number] [address] [place] [address], [place] [address] Mar, [facility] [address] [id number] [address] [place] [address], [place] [address] Mar, [facility] [address] [id number] [address] [place] [address], [place] [address] Feb, [facility] [address] [id number] [address] [place] [address], [place] [address] Feb, [facility] [address] [id number] [address] [place] [address], [place] [address] Feb, [facility] [address] [id number] [address] [place] [address], [place] [address] Jan, [facility] [address] [id number] [address] [place] [address], [place] [address] Jan, [facility] [address] [id number] [address] [place] [address], [place] [address] December, [facility] [address] [id number] [address] [place] [address], [place] [address] 24 Nov, 2012 [facility] [address] [id number] [address] [place] [address], [place] [address] Nov, [facility] [address] [id number] [address] [place] [address], [place] [address] Oct, [facility] [address] [id number] [address] [place] [address], [place] [address] Oct, [facility] [address] [id number] [address] [place] [address], [place] [address] Oct, [facility] [address] [id number] [address] [place] [address], [place] [address] Sep, [facility] [address] [id number] [address] [place] [address], [place] [address] Sep, [facility] [address] [id number] [address] [place] [address], [place] [address] Aug, [facility] [address] [id number] [address] [place] [address], [place] [address] Jun, [facility] [address] [id number] [address] [place] [address], [place] [address] Jun, [facility] [address] [id number] [address] [place] [address], [place] [address] Jun, [facility] [address] [id number] [address] [place] [address], [place] [address] Jun, [facility] [address] [id number] [address] [place] [address], [place] [address] Jun, [facility] [address] [id number] [address] [place] [address], [place] [address] Jun, [facility] [address] [id number] [address] [place] [address], [place] [address] Jun, [facility] [address] [id number] [address] [place] [address], [place] [address] Jun, [facility] [address] [id number] [address] [place] [address], [place] [address] May, [facility] [address] [id number] [address] [place] [address], [place] [address] May, [facility] [address] [id number] [address] [place] [address], [place] [address] May, [facility] [address] [id number] [address] [place] [address], [place] [address] May, [facility] [address] [id number] [address] [place] [address], [place] [address] May, [facility] [address] [id number] [address] [place] [address], [place] [address] May, [facility] [address] [id number] [address] [place] [address], [place] [address] Apr, [facility] [address] [id number] [address] [place] [address], [place] [address] Apr, [facility] [address] [id number] [address] [place] [address], [place] [address] Mar, [facility] [address] [id number] [address] [place] [address], [place] [address] Feb, [facility] [address] [id number] [address] [place] [address], [place] [address] Jan, [facility] [address] [id number] [address] [place] [address], [place] [address] December, [facility] [address] [id number] [address] [place] [address], [place] [address] Nov, [facility] [address] [id number] [address] [place] [address], [place] [address] 24 Oct, 2011 [facility] [address] [id number] [address] [place] [address], [place] [address] Oct, [facility] [address] [id number] [address] [place] [address], [place] [address] 10 Aug, 2011 [facility] [address] [id number] [address] [place] [address], [place] [address] 22 Jul, 2011 [facility] [address] [id number] [address] [place] [address], [place] [address] 15 Jun, 2011 [facility] [address] [id number] [address] [place] [address], [place] [address] 14 Jun, 2011 [facility] [address] [id number] [address] [place] [address], [place] [address] 31 May, 2011 [facility] [address] [id number] [address] [place] [address], [place] [address] 31 May, 2011 [facility] [address] [id number] [address] [place] [address], [place] [address] 12 Aug, 2010 [facility] [address] [id number] [address] [place] [address], [place] [address] 29 Jul, 2010 [facility] [address] [id number] [address] [place] [address], [place] [address] Jul, [facility] [address] [id number] [address] [place] [address], [place] [address] 17 Jun, 2010 [facility] [address] [id number] [address] [place] [address], [place] [address] 17 Jun, 2010 [facility] [address] [id number] [address] [place] [address], [place] [address] 11 Jun, 2010 [facility] [address] [id number] [address] [place] [address], [place] [address] 04 Jun, 2010 [facility] [address] [id number] [address] [place] [address], [place] [address] 03 Jun, 2010 [facility] [address] [id number] [address] [place] [address], [place] [id number] 18 May, 2010 [facility] [address] [id number] [address] [place] [id number] [address] [facility] [address] [facility] [id number] [address] [place] [address] 15 May, 2010 IMMUNIZATIONS No Known Immunizations [...]
--- OUTSIDE RECORDS SUMMARY | 2020-02-16 14:15 | XMS REPORT ---
Author Author Andrew Garcia Doctor Organization [facility] Address Unknown Phone Unavailable Care Team Providers Care Public Address System Operator Name Role Phone Migration, Doctor Unavailable Unavailable PROBLEMS Type Condition ICD9-CM Code [id number] Code Onset Dates Condition S tatus SNOMED Code Problem Adjustment disorder with anxiety F43.22 Active 20040276 Problem Generalized anxiety disorder F41.1 A ctive 72660117 Problem Attention deficit hyperactivity disorder (ADHD), combi david type F90.2 Active 245278371 Problem Mood disorder F39 Active 684665 05 Problem Attention deficit hyperactiv ity disorder (ADHD), predominantly inattentive type F90.0 Active [id number] ALLERGIES No Information ENCOUNTERS Encounter Location Date Diagnosis [place] [address] [place] [id number] [place] [address] Apr, [place] [address] [place] [id number] [place] [address] Apr, [place] [address] [address] Mar, Generalized anxiety disorder F41.1 and Attention deficit hyperactivity disorder (ADHD), combined type F90.2 [place] [address] [place] [id number] [address] [place] [address] Feb, Attention deficit hyperactiv ity disorder (ADHD), combined type F90.2 and Generalized anxiety disorder F41.1 [place] [address] [place] [id number] [address] [place] [address] Feb, Adjustment disorder with anx iety F43.22 [place] [address] [place] [id number] [address] [place] [address] Jan, Adjustment disorder with anx iety F43.22 [place] [address] [place] [id number] [address] [place] [address] Aug, Blood in stool K92.1 and His tory of hemorrhoids Z87.19 [facility] [address] [id number] [address] [place] [address] Jul, Attention deficit hyperactiv ity disorder (ADHD), combined type F90.2 [facility] [address] [id number] [address] [place] [address] 19 Jul, 2018 Attention deficit hyperactiv ity disorder (ADHD), combined type F90.2 and Adjustment disorder with anxiety F43.22 [facility] [address] [id number] [address] [place] [address] 26 Jun, 2018 Bloody stools K92.1 and Acut e bilateral low back pain without sciatica M54.5 [facility] [address] [place] [address] [id number] [address] [place] [address] 08 Jun, 2018 Attention deficit hyperactiv ity disorder (ADHD), combined type F90.2 [facility] [address] [id number] [address] [place] [address] 15 May, 2018 Attention deficit hyperactiv ity disorder (ADHD), combined type F90.2 [facility] [id number] [place] [address] 10 Apr, 2018 Attention deficit hyperactiv ity disorder (ADHD), combined type F90.2 [facility] [address] [id number] [address] [place] [address] Mar, Attention deficit hyperactiv ity disorder (ADHD), combined type F90.2 [facility] [address] [id number] [address] [place] [address] Mar, Attention deficit hyperactiv ity disorder (ADHD), combined type F90.2 [facility] [address] [place] [address] [id number] [address] [place] [address] Mar, Attention deficit hyperactiv ity disorder (ADHD), combined type F90.2 and High risk medication use Z79.899 [facility] [id number] [place] [address], [place] [address] Mar, Gastroenteritis K52.9 [facility] [address] [facility] [id number] [address] [place] [address] Feb, Attention deficit hyperactiv ity disorder (ADHD), combined type F90.2 [facility] [address] [id number] [address] [place] [address] Jan, Attention deficit hyperactiv ity disorder (ADHD), combined type F90.2 and High risk medication use Z79.[address] [id number] 13 Sep, 2017 Acute cystitis without hematuria N30.00 and Acute suppurative otitis media of left ear with spontaneous rupture of tympanic membrane, recurrence not specified H66.[address] [id number] Jul, Seborrheic keratoses L82.1 and Mood disorder F39 [address] [id number] Jul, Attention deficit hyperactivity disorder (ADHD), predominantly inattentive type F90.[address] [id number] Jul, Mood disorder F39 [facility] [address] [facility] [id number] [address] [place] [address] 24 Sep, 2016 [facility] [address] [facility] [id number] [address] [place] [address] Aug, [facility] [address] [facility] [id number] [address] [place] [address] Jul, [facility] [address] [facility] [id number] [address] [place] [address] Jul, [facility] [address] [facility] [id number] [address] [place] [address] Jun, Attention deficit hyperactiv ity disorder (ADHD), combined type F90.2 [facility] [address] [facility] [id number] [address] [place] [address] May, [facility] [address] [id number] [address] [place] [address] Apr, Attention deficit hyperactiv ity disorder (ADHD), combined type F90.2 [facility] [address] [id number] [address] [place] [address] Mar, Acute non-recurrent maxillar y sinusitis J01.00 [facility] [address] [id number] [address] [place] [address] Mar, Acute non-recurrent maxillar y sinusitis J01.00 [facility] [address] [id number] [address] [place] [address] 11 Mar, 2016 [facility] [address] [id number] [address] [place] [address] Feb, Gastroenteritis K52.9 [facility] [address] [id number] [address] [place] [address] Feb, [facility] [address] [id number] [address] [place] [address] Jan, [facility] [address] [id number] [address] [place] [address] December, [facility] [address] [id number] [address] [place] [address] December, Rash R21 [facility] [address] [id number] [address] [place] [address] Nov, [facility] [address] [id number] [address] [place] [address] Nov, [facility] [address] [id number] [address] [place] [address] Oct, [facility] [address] [id number] [address] [place] [address] Oct, Attention deficit hyperactiv ity disorder (ADHD), combined type F90.2 [facility] [address] [id number] [address] [place] [address] Sep, [facility] [address] [facility] [id number] [address] [place] [address] Sep, Viral syndrome B34.9 and HSV (herpes simplex virus) infection B00.9 [facility] [address] [facility] [id number] [address] [place] [address] Aug, [facility] [address] [place] [address] [id number] [place] [address] Aug, [facility] [address] [place] [address] [id number] [address] [place] [address] Jul, [facility] [address] [address] Jun, Gastroenteritis K52.9 [facility] [address] [place] [address] [id number] [place] [address] Jun, [facility] [address] [address] Jun, Attention deficit hyperactiv ity disorder (ADHD), combined type F90.2 [facility] [address] [address] Jun, [facility] [address] [place] [address] [id number] [address] [place] [address] May, 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6 [facility] [address] [id number] [address] [place] [address] 17 Jan, 2015 Attention deficit disorder ( ADD) 314.00 [facility] [address] [id number] [address] [place] [address] 15 Jan, 2015 [facility] [address] [id number] [address] [place] [address] 02 Jan, 2015 Poison janneth dermatitis 692.6 [facility] [address] [id number] [address] [place] [address] December, [facility] [address] [id number] [address] [place] [address] 14 Nov, 2014 [facility] [address] [id number] [address] [place] [address] Nov, [facility] [address] [id number] [address] [place] [address] Oct, [facility] [address] [id number] [address] [place] [address] Oct, [facility] [address] [id number] [address] [place] [address] Oct, [facility] [address] [id number] [address] [place] [address] Oct, [facility] [address] [id number] [address] [place] [address] Oct, [facility] [address] [id number] [address] [place] [address] Oct, [facility] [address] [id number] [address] [place] [address] Oct, [facility] [address] [id number] [address] [place] [address] Oct, [facility] [address] [id number] [address] [place] [address] Sep, [facility] [address] [id number] [address] [place] [address], [place] [address] Sep, [facility] [address] [id number] [address] [place] [address], [place] [address] Aug, [facility] [address] [id number] [address] [place] [address], [place] [address] Aug, [facility] [address] [id number] [address] [place] [address], [place] [address] Aug, [facility] [address] [id number] [address] [place] [address], [place] [address] Aug, [facility] [address] [id number] [address] [place] [address], [place] [address] Aug, [facility] [address] [id number] [address] [place] [address], [place] [address] Aug, [facility] [address] [id number] [address] [place] [address], [place] [address] Jul, [facility] [address] [id number] [address] [place] [address], [place] [address] Jul, [facility] [address] [id number] [address] [place] [address], [place] [address] Jun, [facility] [address] [id number] [address] [place] [address], [place] [address] Jun, [facility] [address] [id number] [address] [place] [address] Jun, [facility] [address] [id number] [address] [place] [address], [place] [address] Jun, [facility] [address] [id number] [address] [place] [address], [place] [address] May, [facility] [address] [id number] [address] [place] [address] May, [facility] [address] [id number] [address] [place] [address], [place] [address] Apr, [facility] [address] [id number] [address] [place] [address], [place] [address] Apr, [facility] [address] [id number] [address] [place] [address], [place] [address] Mar, [facility] [address] [id number] [address] [place] [address], [place] [address] Mar, [facility] [address] [id number] [address] [place] [address], [place] [address] Feb, [facility] [address] [id number] [address] [place] [address], [place] [address] Feb, [facility] [address] [id number] [address] [place] [address], [place] [address] Feb, [facility] [address] [id number] [address] [place] [address], [place] [address] Feb, [facility] [address] [id number] [address] [place] [address], [place] [address] Jan, [facility] [address] [id number] [address] [place] [address], [place] [address] Jan, [facility] [address] [id number] [address] [place] [address], [place] [address] Jan, [facility] [address] [id number] [address] [place] [address], [place] [address] Jan, [facility] [address] [id number] [address] [place] [address], [place] [address] December, [facility] [address] [id number] [address] [place] [address], [place] [address] December, [facility] [address] [id number] [address] [place] [address], [place] [address] December, [facility] [address] [id number] [address] [place] [address], [place] [address] December, [facility] [address] [id number] [address] [place] [address], [place] [address] Nov, [facility] [address] [id number] [address] [place] [address], [place] [address] Nov, [facility] [address] [id number] [address] [place] [address], [place] [address] Oct, [facility] [address] [id number] [address] [place] [address], [place] [address] Oct, [facility] [address] [id number] [address] [place] [address], [place] [address] Sep, [facility] [address] [id number] [address] [place] [address], [place] [address] Sep, [facility] [address] [id number] [address] [place] [address], [place] [address] Aug, [facility] [address] [id number] [address] [place] [address], [place] [address] Aug, [facility] [address] [id number] [address] [place] [address], [place] [address] Jul, [facility] [address] [id number] [address] [place] [address], [place] [address] Jul, [facility] [address] [id number] [address] [place] [address], [place] [address] Jun, [facility] [address] [id number] [address] [place] [address], [place] [address] Jun, [facility] [address] [id number] [address] [place] [address], [place] [address] Jun, [facility] [address] [id number] [address] [place] [address], [place] [address] Jun, [facility] [address] [id number] [address] [place] [address], [place] [address] May, [facility] [address] [id number] [address] [place] [address], [place] [address] May, [facility] [address] [id number] [address] [place] [address], [place] [address] May, [facility] [address] [id number] [address] [place] [address], [place] [address] Apr, [facility] [address] [id number] [address] [place] [address], [place] [address] Mar, [facility] [address] [id number] [address] [place] [address], [place] [address] Mar, [facility] [address] [id number] [address] [place] [address], [place] [address] Mar, [facility] [address] [id number] [address] [place] [address], [place] [address] Mar, [facility] [address] [id number] [address] [place] [address], [place] [address] Feb, [facility] [address] [id number] [address] [place] [address], [place] [address] Feb, [facility] [address] [id number] [address] [place] [address], [place] [address] Feb, [facility] [address] [id number] [address] [place] [address], [place] [address] Jan, [facility] [address] [id number] [address] [place] [address], [place] [address] Jan, [facility] [address] [id number] [address] [place] [address], [place] [address] December, [facility] [address] [id number] [address] [place] [address], [place] [address] 24 Nov, 2012 [facility] [address] [id number] [address] [place] [address], [place] [address] Nov, [facility] [address] [id number] [address] [place] [address], [place] [address] Oct, [facility] [address] [id number] [address] [place] [address], [place] [address] Oct, [facility] [address] [id number] [address] [place] [address], [place] [address] Oct, [facility] [address] [id number] [address] [place] [address], [place] [address] Sep, [facility] [address] [id number] [address] [place] [address], [place] [address] Sep, [facility] [address] [id number] [address] [place] [address], [place] [address] Aug, [facility] [address] [id number] [address] [place] [address], [place] [address] Jun, [facility] [address] [id number] [address] [place] [address], [place] [address] Jun, [facility] [address] [id number] [address] [place] [address], [place] [address] Jun, [facility] [address] [id number] [address] [place] [address], [place] [address] Jun, [facility] [address] [id number] [address] [place] [address], [place] [address] Jun, [facility] [address] [id number] [address] [place] [address], [place] [address] Jun, [facility] [address] [id number] [address] [place] [address], [place] [address] Jun, [facility] [address] [id number] [address] [place] [address], [place] [address] Jun, [facility] [address] [id number] [address] [place] [address], [place] [address] May, [facility] [address] [id number] [address] [place] [address], [place] [address] May, [facility] [address] [id number] [address] [place] [address] [place] [address] 18 May, 2012 [facility] [address] [id number] [address] [place] [address], [place] [address] 18 May, 2012 [facility] [address] [id number] [address] [place] [address], [place] [address] May, [facility] [address] [id number] [address] [place] [address], [place] [address] May, [facility] [address] [id number] [address] [place] [address], [place] [address] 08 Apr, 2012 [facility] [address] [id number] [address] [place] [address], [place] [address] Apr, [facility] [address] [id number] [address] [place] [address], [place] [address] Mar, [facility] [address] [id number] [address] [place] [address], [place] [address] Feb, [facility] [address] [id number] [address] [place] [address], [place] [address] Jan, [facility] [address] [id number] [address] [place] [address], [place] [address] December, [facility] [address] [id number] [address] [place] [address], [place] [address] Nov, [facility] [address] [id number] [address] [place] [address], [place] [address] Oct, [facility] [address] [id number] [address] [place] [address], [place] [address] Oct, [facility] [address] [id number] [address] [place] [address], [place] [address] Aug, [facility] [address] [id number] [address] [place] [address], [place] [address] Jul, [facility] [address] [id number] [address] [place] [address], [place] [address] Jun, [facility] [address] [id number] [address] [place] [address] Jun, [facility] [address] [id number] [address] [place] [address] May, [facility] [address] [id number] [address] [place] [address] May, [facility] [address] [id number] [address] [place] [address] Aug, [facility] [address] [id number] [address] [place] [address] Jul, [facility] [address] [id number] [address] [place] [address] Jul, [facility] [address] [id number] [address] [place] [address] Jun, [facility] [address] [id number] [address] [place] [address] Jun, [facility] [address] [id number] [address] [place] [address] Jun, [facility] [address] [id number] [address] [place] [address] Jun, [facility] [address] [id number] [address] [place] [address] Jun, [facility] [address] [id number] [address] [place] [address] May, [facility] [address] [id number] [address] [place] [address] May, [facility] [address] [id number] [address] [place] [address] May, IMMUNIZATIONS No Known Immunizations SOCIAL HISTORY [...]
--- OUTSIDE RECORDS SUMMARY | 2020-02-16 14:15 | XMS REPORT ---
Author Author Andrew COX Organization [facility] Address [address] [place] [address] Care Team Providers Care Cap Coverer Name Role Phone ANETA COX Unavailable PROBLEMS Type Condition ICD9-CM Code [id number] Code Onset Dates Condition S tatus SNOMED Code Problem Adjustment disorder with anxiety F43.22 Active 48944826 Problem Generalized anxiety disorder F41.1 A ctive [id number] Problem Attention deficit hyperactivity disorder (ADHD), combi david type F90.2 Active 846890690 Problem Mood disorder F39 Active 754703 05 Problem Attention deficit hyperactiv ity disorder (ADHD), predominantly inattentive type F90.0 Active [id number] ALLERGIES No Information ENCOUNTERS Encounter Location Date Diagnosis [place] [address] [place] [id number] [place] [address] Mar, [place] [address] [address] Feb, Attention deficit hyperactiv ity disorder (ADHD), combined type F90.2 and Generalized anxiety disorder F41.1 [place] [address] [place] [id number] [address] [place] [address] Feb, Adjustment disorder with anx iety F43.22 [place] [address] [place] [id number] [address] [place] [address] Jan, Adjustment disorder with anx iety F43.22 [place] [address] [place] [id number] [address] [place] [address] Aug, Blood in stool K92.1 and His tory of hemorrhoids Z87.19 [place] [address] [place] [id number] [address] [place] [address] Jul, Attention deficit hyperactiv ity disorder (ADHD), combined type F90.2 [facility] [address] [facility] [id number] [address] [place] [address] 19 Jul, 2018 Attention deficit hyperactiv ity disorder (ADHD), combined type F90.2 and Adjustment disorder with anxiety F43.22 [facility] [address] [facility] [id number] [address] [place] [address] 26 Jun, 2018 Bloody stools K92.1 and Acut e bilateral low back pain without sciatica M54.5 [facility] [address] [facility] [id number] [address] [place] [address] 08 Jun, 2018 Attention deficit hyperactiv ity disorder (ADHD), combined type F90.2 [facility] [address] [place] [id number] [address] [place] [address] 15 May, 2018 Attention deficit hyperactiv ity disorder (ADHD), combined type F90.2 [facility] [address] [place] [id number] [address] [place] [address] 10 Apr, 2018 Attention deficit hyperactiv ity disorder (ADHD), combined type F90.2 [facility] [address] [facility] [id number] [address] [place] [address] Mar, Attention deficit hyperactiv ity disorder (ADHD), combined type F90.2 [facility] [address] [place] [id number] [address] [place] [address] 14 Mar, 2018 Attention deficit hyperactiv ity disorder (ADHD), combined type F90.2 [facility] [address] [facility] [id number] [address] [place] [address] 14 Mar, 2018 Attention deficit hyperactiv ity disorder (ADHD), combined type F90.2 and High risk medication use Z79.899 [facility] [address] [facility] [id number] [address] [place] [address] 14 Mar, 2018 Gastroenteritis K52.9 [facility] [address] [facility] [id number] [address] [place] [address] Feb, Attention deficit hyperactiv ity disorder (ADHD), combined type F90.2 [facility] [address] [id number] [address] [place] [address] Jan, Attention deficit hyperactiv ity disorder (ADHD), combined type F90.2 and High risk medication use Z79.899 [place] [address] [place], [place] [id number] 13 Sep, 2017 Acute cystitis without hematuria N30.00 and Acute suppurative otitis media of left ear with spontaneous rupture of tympanic membrane, recurrence not specified H66.012 [place] [address] [place], [place] [id number] 57 Jul, Seborrheic keratoses L82.1 and Mood disorder F39 [address] [id number] Jul, Attention deficit hyperactivity disorder (ADHD), predominantly inattentive type F90.[address] [id number] Jul, Mood disorder F39 [facility] [address] [facility] [id number] [address] [place] [address] Sep, [facility] [address] [facility] [id number] [address] [place] [address] Aug, [facility] [address] [facility] [id number] [address] [place] [address] Jul, [facility] [address] [facility] [id number] [address] [place] [address] Jul, [facility] [address] [facility] [id number] [address] [place] [address] Jun, Attention deficit hyperactiv ity disorder (ADHD), combined type F90.2 [facility] [address] [id number] [address] [place] [address] May, [facility] [address] [facility] [id number] [address] [place] [address] 12 Apr, 2016 Attention deficit hyperactiv ity disorder (ADHD), combined type F90.2 [facility] [address] [facility] [id number] [address] [place] [address] Mar, Acute non-recurrent maxillar y sinusitis J01.00 [facility] [address] [id number] [address] [place] [address] Mar, Acute non-recurrent maxillar y sinusitis J01.00 [facility] [address] [facility] [id number] [address] [place] [address] Mar, [facility] [address] [id number] [address] [place] [address] Feb, Gastroenteritis K52.9 [facility] [address] [id number] [address] [place] [address] Feb, [facility] [address] [facility] [id number] [address] [place] [address] Jan, [facility] [address] [facility] [id number] [address] [place] [address] December, [facility] [address] [facility] [id number] [address] [place] [address] December, Rash R21 [facility] [address] [facility] [id number] [address] [place] [address] Nov, [facility] [address] [facility] [id number] [address] [place] [address] Nov, [facility] [address] [facility] [id number] [address] [place] [address] Oct, [facility] [address] [facility] [id number] [address] [place] [address] Oct, Attention deficit hyperactiv ity disorder (ADHD), combined type F90.2 [facility] [address] [facility] [id number] [address] [place] [address] Sep, [facility] [address] [facility] [id number] [address] [place] [address] Sep, Viral syndrome B34.9 and HSV (herpes simplex virus) infection B00.9 [facility] [address] [facility] [id number] [address] [place] [address] Aug, [facility] [address] [facility] [id number] [address] [place] [address] Aug, [facility] [address] [facility] [id number] [address] [place] [address] Jul, [facility] [address] [facility] [id number] [address] [place] [address] Jun, Gastroenteritis K52.9 [facility] [address] [place] [id number] [address] [place] [address] Jun, [facility] [address] [place] [id number] [address] [place] [address] Jun, Attention deficit hyperactiv ity disorder (ADHD), combined type F90.2 [facility] [address] [place] [id number] [address] [place] [address] Jun, [facility] [address] [facility] [id number] [address] [place] [address] May, 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 [facility] [address] [place] [id number] [address] [place] [address] May, [facility] [address] [place] [id number] [address] [place] [address] Apr, [facility] [address] [facility] [id number] [address] [place] [address] Mar, [facility] [address] [facility] [id number] [address] [place] [address] Feb, [facility] [address] [place] [id number] [address] [place] [address] Jan, Poison janneth 692.6 [facility] [address] [place] [id number] [address] [place] [address] Jan, Attention deficit disorder ( ADD) 314.00 [facility] [address] [id number] [address] [place] [address], [place] [address] Jan, [facility] [address] [id number] [address] [place] [address], [place] [address] Jan, Anni janneth aruna 692.6 [facility] [address] [id number] [address] [place] [address], [place] [address] December, [facility] [address] [id number] [address] [place] [address], [place] [address] Nov, [facility] [address] [id number] [address] [place] [address], [place] [address] Nov, [facility] [address] [id number] [address] [place] [address] Oct, [facility] [address] [id number] [address] [place] [address], [place] [address] Oct, [facility] [address] [id number] [address] [place] [address] Oct, [facility] [address] [id number] [address] [place] [address], [place] [address] Oct, [facility] [address] [id number] [address] [place] [address] Oct, [facility] [address] [id number] [address] [place] [address] Oct, [facility] [address] [id number] [address] [place] [address] Oct, [facility] [address] [id number] [address] [place] [address], [place] [address] Oct, [facility] [address] [id number] [address] [place] [address] Sep, [facility] [address] [id number] [address] [place] [address] Sep, [facility] [address] [id number] [address] [place] [address], [place] [address] Aug, [facility] [address] [id number] [address] [place] [address], [place] [address] Aug, [facility] [address] [id number] [address] [place] [address], [place] [address] Aug, [facility] [address] [id number] [address] [place] [address], [place] [address] Aug, [facility] [address] [id number] [address] [place] [address], [place] [address] Aug, [facility] [address] [id number] [address] [place] [address], [place] [address] Aug, [facility] [address] [id number] [address] [place] [address], [place] [address] Jul, [facility] [address] [id number] [address] [place] [address], [place] [address] Jul, [facility] [address] [id number] [address] [place] [address], [place] [address] Jun, [facility] [address] [id number] [address] [place] [address], [place] [address] Jun, [facility] [address] [id number] [address] [place] [address], [place] [address] Jun, [facility] [address] [id number] [address] [place] [address], [place] [address] Jun, [facility] [address] [id number] [address] [place] [address], [place] [address] May, [facility] [address] [id number] [address] [place] [address], [place] [address] May, [facility] [address] [id number] [address] [place] [address], [place] [address] Apr, [facility] [address] [id number] [address] [place] [address], [place] [address] Apr, [facility] [address] [id number] [address] [place] [address], [place] [address] Mar, [facility] [address] [id number] [address] [place] [address], [place] [address] Mar, [facility] [address] [id number] [address] [place] [address], [place] [address] Feb, [facility] [address] [id number] [address] [place] [address], [place] [address] Feb, [facility] [address] [id number] [address] [place] [address], [place] [address] Feb, [facility] [address] [id number] [address] [place] [address], [place] [address] Feb, [facility] [address] [id number] [address] [place] [address], [place] [address] Jan, [facility] [address] [id number] [address] [place] [address], [place] [address] Jan, [facility] [address] [id number] [address] [place] [address], [place] [address] Jan, [facility] [address] [id number] [address] [place] [address], [place] [address] Jan, [facility] [address] [id number] [address] [place] [address], [place] [address] December, [facility] [address] [id number] [address] [place] [address], [place] [address] December, [facility] [address] [id number] [address] [place] [address], [place] [address] December, [facility] [address] [id number] [address] [place] [address], [place] [address] December, [facility] [address] [id number] [address] [place] [address], [place] [address] Nov, [facility] [address] [id number] [address] [place] [address] Nov, [facility] [address] [id number] [address] [place] [address], [place] [address] Oct, [facility] [address] [id number] [address] [place] [address], [place] [address] Oct, [facility] [address] [id number] [address] [place] [address], [place] [address] Sep, [facility] [address] [id number] [address] [place] [address], [place] [address] Sep, [facility] [address] [id number] [address] [place] [address], [place] [address] Aug, [facility] [address] [id number] [address] [place] [address], [place] [address] Aug, [facility] [address] [id number] [address] [place] [address], [place] [address] Jul, [facility] [address] [id number] [address] [place] [address], [place] [address] Jul, [facility] [address] [id number] [address] [place] [address], [place] [address] Jun, [facility] [address] [id number] [address] [place] [address], [place] [address] Jun, [facility] [address] [id number] [address] [place] [address], [place] [address] Jun, [facility] [address] [id number] [address] [place] [address], [place] [address] Jun, [facility] [address] [id number] [address] [place] [address], [place] [address] May, [facility] [address] [id number] [address] [place] [address], [place] [address] May, [facility] [address] [id number] [address] [place] [address], [place] [address] May, [facility] [address] [id number] [facility] [place] [address] Apr, [facility] [address] [id number] [address] [place] [address], [place] [address] Mar, [facility] [address] [id number] [address] [place] [address], [place] [address] Mar, [facility] [address] [id number] [address] [place] [address], [place] [address] Mar, [facility] [address] [id number] [address] [place] [address], [place] [address] Mar, [facility] [address] [id number] [address] [place] [address], [place] [address] Feb, [facility] [address] [id number] [address] [place] [address], [place] [address] Feb, [facility] [address] [id number] [address] [place] [address], [place] [address] Feb, [facility] [address] [id number] [address] [place] [address], [place] [address] Jan, [facility] [address] [id number] [address] [place] [address], [place] [address] Jan, [facility] [address] [id number] [address] [place] [address], [place] [address] December, [facility] [address] [id number] [address] [place] [address], [place] [address] Nov, [facility] [address] [id number] [address] [place] [address], [place] [address] Nov, [facility] [address] [id number] [address] [place] [address], [place] [address] Oct, [facility] [address] [id number] [address] [place] [address], [place] [address] Oct, [facility] [address] [id number] [address] [place] [address], [place] [address] Oct, [facility] [address] [id number] [address] [place] [address], [place] [address] Sep, [facility] [address] [id number] [address] [place] [address], [place] [address] Sep, [facility] [address] [id number] [address] [place] [address], [place] [address] Aug, [facility] [address] [id number] [address] [place] [address], [place] [address] Jun, [facility] [address] [id number] [address] [place] [address], [place] [address] Jun, [facility] [address] [id number] [address] [place] [address], [place] [address] Jun, [facility] [address] [id number] [address] [place] [address], [place] [address] Jun, [facility] [address] [id number] [address] [place] [address], [place] [address] Jun, [facility] [address] [id number] [address] [place] [address], [place] [address] Jun, [facility] [address] [id number] [address] [place] [address], [place] [address] Jun, [facility] [address] [id number] [address] [place] [address], [place] [address] Jun, [facility] [address] [id number] [address] [place] [address], [place] [address] May, [facility] [address] [id number] [address] [place] [address], [place] [address] May, [facility] [address] [id number] [address] [place] [address], [place] [address] May, [facility] [address] [id number] [address] [place] [address], [place] [address] May, [facility] [address] [id number] [address] [place] [address], [place] [address] 04 May, 2012 [facility] [address] [id number] [address] [place] [address], [place] [address] 03 May, 2012 [facility] [address] [id number] [address] [place] [address], [place] [address] 08 Apr, 2012 [facility] [address] [id number] [address] [place] [address], [place] [address] 06 Apr, 2012 [facility] [address] [id number] [address] [place] [address], [place] [address] Mar, [facility] [address] [id number] [address] [place] [address], [place] [address] Feb, [facility] [address] [id number] [address] [place] [address], [place] [address] Jan, [facility] [address] [id number] [address] [place] [address], [place] [address] December, [facility] [address] [id number] [address] [place] [address], [place] [address] Nov, [facility] [address] [id number] [address] [place] [address], [place] [address] 24 Oct, 2011 [facility] [address] [id number] [address] [place] [address], [place] [address] Oct, [facility] [address] [id number] [address] [place] [address], [place] [address] Aug, [facility] [address] [id number] [address] [place] [address], [place] [address] 22 Jul, 2011 [facility] [address] [id number] [address] [place] [address], [place] [address] 15 Jun, 2011 [facility] [address] [id number] [address] [place] [address], [place] [address] 14 Jun, 2011 [facility] [address] [id number] [address] [place] [address], [place] [address] May, [facility] [address] [id number] [address] [place] [address] May, [facility] [address] [id number] [address] [place] [address] Aug, [facility] [address] [id number] [address] [place] [address] Jul, [facility] [address] [id number] [address] [place] [address] Jul, [facility] [address] [id number] [address] [place] [address] Jun, [facility] [address] [id number] [address] [place] [address] Jun, [facility] [address] [id number] [address] [place] [address] Jun, [facility] [address] [id number] [address] [place] [address] Jun, [facility] [address] [id number] [address] [place] [address] Jun, [facility] [address] [id number] [address] [place] [address] May, [facility] [address] [id number] [address] [place] [address] May, [facility] [address] [id number] [address] [place] [address] May, IMMUNIZATIONS No Known Immunizations SOCIAL HISTORY [...]
--- OUTSIDE RECORDS SUMMARY | 2020-02-16 14:16 | XMS REPORT ---
Author Author Andrew REES Organization [facility] Address [address] [place] [address] Care Team Providers Care Delivery Tech Name Role Phone SYDNEY REESWNYA Unavailable PROBLEMS Type Condition ICD9-CM Code [id number] Code Onset Dates Condition S tatus SNOMED Code Problem Attention deficit hyperactiv ity disorder (ADHD), predominantly inattentive type F90.0 Active 81925849 Problem Adjustment disorder with anxiety F43.22 Active 55129728 Problem Attention deficit hyperactivity disorder (ADHD), combi david type F90.2 Active 519800956 Problem Mood disorder F39 Active 584021 05 ALLERGIES No Information ENCOUNTERS Encounter Location Date Diagnosis [place] [address] [place] [id number] [place] [phone] Feb, [place] [address] [facility] [id number] [place] [phone] Feb, [place] [address] [place] [id number] [place] [phone] Jan, Adjustment disorder with anx iety F43.22 [place] [address] [place] [id number] [place] [phone] Aug, Blood in stool K92.1 and His tory of hemorrhoids Z87.19 [facility] [address] [facility] [id number] [place] [phone] Jul, Attention deficit hyperactiv ity disorder (ADHD), combined type F90.2 [facility] [address] [facility] [id number] [place] [phone] Jul, Attention deficit hyperactiv ity disorder (ADHD), combined type F90.2 and Adjustment disorder with anxiety F43.22 [place] [address] [place] [id number] [place] [phone] Jun, Bloody stools K92.1 and Acut e bilateral low back pain without sciatica M54.5 [facility] [address] [facility] [id number] [place] [phone] 08 Jun, 2018 Attention deficit hyperactiv ity disorder (ADHD), combined type F90.2 [facility] [address] [place] [id number] [place] [phone] 15 May, 2018 Attention deficit hyperactiv ity disorder (ADHD), combined type F90.2 [facility] [address] [facility] [id number] [place] [phone] Apr, Attention deficit hyperactiv ity disorder (ADHD), combined type F90.2 [facility] [address] [place] [id number] [place] [phone] Mar, Attention deficit hyperactiv ity disorder (ADHD), combined type F90.2 [facility] [address] [place] [id number] [place] [phone] Mar, Attention deficit hyperactiv ity disorder (ADHD), combined type F90.2 [facility] [address] [place] [id number] [place] [phone] Mar, Attention deficit hyperactiv ity disorder (ADHD), combined type F90.2 and High risk medication use Z79.899 [facility] [address] [place] [id number] [place] [phone] 14 Mar, 2018 Gastroenteritis K52.9 [facility] [address] [facility] [id number] [place] [phone] Feb, Attention deficit hyperactiv ity disorder (ADHD), combined type F90.2 [facility] [address] [facility] [id number] [place] [phone] 05 Jan, 2018 Attention deficit hyperactiv ity disorder (ADHD), combined type F90.2 and High risk medication use Z79.899 [facility] [address] [place], [place] [phone] 13 Sep, 2017 Acute cystitis without hematuria N30.00 and Acute suppurative otitis media of left ear with spontaneous rupture of tympanic membrane, recurrence not specified H66.012 [place] [address] [place] [id number] Jul, Seborrheic keratoses L82.1 and Mood disorder F39 [place] [address] [place], [place] [id number] 57 Jul, Attention deficit hyperactivity disorder (ADHD), predominantly inattentive type F90.0 [place] [address] [place] [id number] 57 Jul, Mood disorder F39 [facility] [address] [id number] [address] [place] [phone] Sep, [facility] [address] [id number] [address] [place] [phone] Aug, [facility] [address] [id number] [address] [place] [phone] Jul, [facility] [address] [id number] [address] [place] [phone] Jul, [facility] [address] [id number] [address] [place] [phone] Jun, Attention deficit hyperactiv ity disorder (ADHD), combined type F90.2 [facility] [address] [id number] [address] [place] [phone] May, [facility] [address] [id number] [address] [place] [phone] Apr, Attention deficit hyperactiv ity disorder (ADHD), combined type F90.2 [facility] [address] [id number] [address] [place] [phone] Mar, Acute non-recurrent maxillar y sinusitis J01.00 [facility] [address] [id number] [address] [place] [phone] Mar, Acute non-recurrent maxillar y sinusitis J01.00 [facility] [address] [id number] [address] [place] [address], [place] [address] Mar, [facility] [address] [id number] [address] [place] [address], [place] [address] Feb, Gastroenteritis K52.9 [facility] [address] [id number] [address] [place] [address], [place] [address] Feb, [facility] [address] [id number] [address] [place] [address], [place] [address] Jan, [facility] [address] [id number] [address] [place] [address], [place] [address] December, [facility] [address] [id number] [address] [place] [address], [place] [address] December, Rash R21 [facility] [address] [facility] [id number] [place] [address], [place] [address] Nov, [facility] [address] [facility] [id number] [place] [phone] Nov, [facility] [address] [id number] [address] [place] [phone] Oct, [facility] [address] [facility] [id number] [place] [phone] Oct, Attention deficit hyperactiv ity disorder (ADHD), combined type F90.2 [facility] [address] [facility] [id number] [place] [phone] Sep, [facility] [address] [facility] [id number] [place] [phone] Sep, Viral syndrome B34.9 and HSV (herpes simplex virus) infection B00.9 [facility] [address] [facility] [id number] [place] [phone] Aug, [facility] [address] [facility] [id number] [place] [phone] Aug, [facility] [address] [facility] [id number] [place] [phone] Jul, [facility] [address] [facility] [id number] [place] [phone] Jun, Gastroenteritis K52.9 [facility] [address] [facility] [id number] [place] [phone] Jun, [facility] [address] [place] [id number] [place] [phone] Jun, Attention deficit hyperactiv ity disorder (ADHD), combined type F90.2 [facility] [address] [facility] [id number] [place] [phone] Jun, [facility] [address] [place] [id number] [place] [phone] May, 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 [facility] [address] [place] [id number] [place] [phone] May, [facility] [address] [facility] [id number] [place] [phone] Apr, [facility] [address] [place] [id number] [place] [phone] Mar, [facility] [address] [facility] [id number] [place] [phone] Feb, [facility] [address] [facility] [id number] [place] [phone] Jan, Poison janneth 692.6 [facility] [address] [facility] [id number] [place] [phone] Jan, Attention deficit disorder ( ADD) 314.00 [facility] [address] [facility] [id number] [place] [phone] Jan, [facility] [address] [facility] [id number] [place] [phone] Jan, Poison janneth dermatitis 692.6 [facility] [address] [id number] [address] [place] [address], [place] [address] 14 Dec, 2014 [facility] [address] [id number] [address] [place] [address], [place] [address] 14 Nov, 2014 [facility] [address] [id number] [address] [place] [address], [place] [address] 13 Nov, 2014 [facility] [address] [id number] [address] [place] [address], [place] [address] 13 Oct, 2014 [facility] [address] [id number] [address] [place] [address], [place] [address] Oct, [facility] [address] [id number] [address] [place] [address], [place] [address] Oct, [facility] [address] [id number] [address] [place] [address], [place] [address] Oct, [facility] [address] [id number] [address] [place] [address], [place] [address] Oct, [facility] [address] [id number] [address] [place] [address], [place] [address] 05 Oct, 2014 [facility] [address] [id number] [address] [place] [address], [place] [address] Oct, [facility] [address] [id number] [address] [place] [address], [place] [address] Oct, [facility] [address] [id number] [address] [place] [address], [place] [address] Sep, [facility] [address] [id number] [address] [place] [address], [place] [address] Sep, [facility] [address] [id number] [address] [place] [address], [place] [address] Aug, [facility] [address] [id number] [address] [place] [address], [place] [address] Aug, [facility] [address] [id number] [address] [place] [address], [place] [address] Aug, [facility] [address] [id number] [address] [place] [address], [place] [address] Aug, [facility] [address] [id number] [address] [place] [address], [place] [address] Aug, [facility] [address] [id number] [address] [place] [address], [place] [address] Aug, [facility] [address] [id number] [address] [place] [address], [place] [address] Jul, [facility] [address] [id number] [address] [place] [address], [place] [address] Jul, [facility] [address] [id number] [address] [place] [address], [place] [address] Jun, [facility] [address] [id number] [address] [place] [address], [place] [address] Jun, [facility] [address] [id number] [address] [place] [address], [place] [address] Jun, [facility] [address] [id number] [address] [place] [address], [place] [address] Jun, [facility] [address] [id number] [address] [place] [address], [place] [address] May, [facility] [address] [id number] [address] [place] [address], [place] [address] May, [facility] [address] [id number] [address] [place] [address], [place] [address] Apr, [facility] [address] [id number] [address] [place] [address], [place] [address] Apr, [facility] [address] [id number] [address] [place] [address], [place] [address] Mar, [facility] [address] [id number] [address] [place] [address], [place] [address] Mar, [facility] [address] [id number] [address] [place] [address], [place] [address] Feb, [facility] [address] [id number] [address] [place] [address], [place] [address] Feb, [facility] [address] [id number] [address] [place] [address], [place] [address] Feb, [facility] [address] [id number] [address] [place] [address], [place] [address] Feb, [facility] [address] [id number] [address] [place] [address], [place] [address] Jan, [facility] [address] [id number] [address] [place] [address], [place] [address] Jan, [facility] [address] [id number] [address] [place] [address], [place] [address] Jan, [facility] [address] [id number] [address] [place] [address], [place] [address] Jan, [facility] [address] [id number] [address] [place] [address], [place] [address] December, [facility] [address] [id number] [address] [place] [address], [place] [address] December, [facility] [address] [id number] [address] [place] [address], [place] [address] December, [facility] [address] [id number] [address] [place] [address], [place] [address] December, [facility] [address] [id number] [address] [place] [address], [place] [address] Nov, [facility] [address] [id number] [address] [place] [address], [place] [address] Nov, [facility] [address] [id number] [address] [place] [address], [place] [address] Oct, [facility] [address] [id number] [address] [place] [address], [place] [address] Oct, [facility] [address] [id number] [address] [place] [address], [place] [address] Sep, [facility] [address] [id number] [address] [place] [address], [place] [address] Sep, [facility] [address] [id number] [address] [place] [address], [place] [address] Aug, [facility] [address] [id number] [address] [place] [address], [place] [address] Aug, [facility] [address] [id number] [address] [place] [address], [place] [address] Jul, [facility] [address] [id number] [address] [place] [address], [place] [address] Jul, [facility] [address] [id number] [address] [place] [address], [place] [address] Jun, [facility] [address] [id number] [address] [place] [address], [place] [address] Jun, [facility] [address] [id number] [address] [place] [address], [place] [address] Jun, [facility] [address] [id number] [address] [place] [address], [place] [address] Jun, [facility] [address] [id number] [address] [place] [address], [place] [address] May, [facility] [address] [id number] [address] [place] [address], [place] [address] May, [facility] [address] [id number] [address] [place] [address], [place] [address] May, [facility] [address] [id number] [address] [place] [address], [place] [address] 30 Apr, 2013 [facility] [address] [id number] [address] [place] [address], [place] [address] Mar, [facility] [address] [id number] [address] [place] [address], [place] [address] Mar, [facility] [address] [id number] [address] [place] [address], [place] [address] Mar, [facility] [address] [id number] [address] [place] [address], [place] [address] Mar, [facility] [address] [id number] [address] [place] [address], [place] [address] Feb, [facility] [address] [id number] [address] [place] [address], [place] [address] Feb, [facility] [address] [id number] [address] [place] [address], [place] [address] Feb, [facility] [address] [id number] [address] [place] [address], [place] [address] Jan, [facility] [address] [id number] [address] [place] [address], [place] [address] Jan, [facility] [address] [id number] [address] [place] [address], [place] [address] December, [facility] [address] [id number] [address] [place] [address], [place] [address] Nov, [facility] [address] [id number] [address] [place] [address], [place] [address] Nov, [facility] [address] [id number] [address] [place] [address], [place] [address] Oct, [facility] [address] [id number] [address] [place] [address], [place] [address] Oct, [facility] [address] [id number] [address] [place] [address], [place] [address] Oct, [facility] [address] [id number] [address] [place] [address], [place] [address] Sep, [facility] [address] [id number] [address] [place] [address], [place] [address] Sep, [facility] [address] [id number] [address] [place] [address], [place] [address] Aug, [facility] [address] [id number] [address] [place] [address], [place] [address] Jun, [facility] [address] [id number] [address] [place] [address], [place] [address] Jun, [facility] [address] [id number] [address] [place] [address], [place] [address] Jun, [facility] [address] [id number] [address] [place] [address], [place] [address] Jun, [facility] [address] [id number] [address] [place] [address], [place] [address] Jun, [facility] [address] [id number] [address] [place] [address], [place] [address] Jun, [facility] [address] [id number] [address] [place] [address], [place] [address] Jun, [facility] [address] [id number] [address] [place] [address], [place] [address] Jun, [facility] [address] [id number] [address] [place] [address], [place] [address] May, [facility] [address] [id number] [address] [place] [address], [place] [address] May, [facility] [address] [id number] [address] [place] [address], [place] [address] May, [facility] [address] [id number] [address] [place] [address], [place] [address] May, [facility] [address] [id number] [address] [place] [address], [place] [address] May, [facility] [address] [id number] [address] [place] [address], [place] [address] May, [facility] [address] [id number] [address] [place] [address] [address] 08 Apr, 2012 [facility] [address] [id number] [address] [place] [address], [place] [address] 06 Apr, 2012 [facility] [address] [id number] [address] [place] [address], [place] [address] Mar, [facility] [address] [id number] [address] [place] [address], [place] [address] Feb, [facility] [address] [id number] [address] [place] [address], [place] [address] Jan, [facility] [address] [id number] [address] [place] [address], [place] [address] December, [facility] [address] [id number] [address] [place] [address], [place] [address] Nov, [facility] [address] [id number] [address] [place] [address], [place] [address] Oct, [facility] [address] [id number] [address] [place] [address], [place] [address] Oct, [facility] [address] [id number] [address] [place] [address], [place] [address] Aug, [facility] [address] [id number] [address] [place] [address], [place] [address] Jul, [facility] [address] [id number] [address] [place] [address], [place] [address] 15 Jun, 2011 [facility] [address] [id number] [address] [place] [address], [place] [address] 14 Jun, 2011 [facility] [address] [id number] [address] [place] [address], [place] [address] May, [facility] [address] [id number] [address] [place] [address], [place] [address] 31 May, 2011 [facility] [address] [id number] [address] [place] [address], [place] [address] 12 Aug, 2010 [facility] [address] [id number] [address] [place] [phone] Jul, [facility] [address] [id number] [address] [place] [phone] Jul, [facility] [address] [id number] [address] [place] [phone] Jun, [facility] [address] [id number] [address] [place] [id number] Jun, [facility] [address] [id number] [address] [place] [phone] Jun, [facility] [address] [id number] [address] [place] [phone] Jun, [facility] [address] [id number] [address] [place] [phone] Jun, [facility] [address] [facility] [id number] [place] [phone] May, [facility] [address] [id number] [address] [place] [phone] May, [facility] [address] [facility] [id number] [place] [phone] May, IMMUNIZATIONS No Known Immunizations SOCIAL HISTORY Never Assessed REASON FOR VISIT PLAN OF CARE VITAL SIGNS MEDICATIONS Unknown Medications RESULTS No Results PROCEDURES No Known procedures INSTRUCTIONS MEDICATIONS ADMINISTERED No Known Medications MEDICAL (GENERAL) HISTORY Type Description Date Medical History attention deficit hyperactivity disorder Surgical History No Surgical history information Hospitalization History [facility] Pneum[facility] 04/2016
--- OUTSIDE RECORDS SUMMARY | 2020-02-16 14:16 | XMS REPORT ---
Author Author Andrew COX Organization [facility] Address [address] [place] [address] Care Team Providers Care Pmp Project Manager Name Role Phone ANETA COX Unavailable PROBLEMS Type Condition ICD9-CM Code [id number] Code Onset Dates Condition S tatus SNOMED Code Problem Adjustment disorder with anxiety F43.22 Active 75456930 Problem Generalized anxiety disorder F41.1 A ctive 95179489 Problem Attention deficit hyperactivity disorder (ADHD), combi david type F90.2 Active 382483612 Problem Mood disorder F39 Active 663187 [id number] Problem Attention deficit hyperactiv ity disorder (ADHD), predominantly inattentive type F90.0 Active [id number] ALLERGIES No Information ENCOUNTERS Encounter Location Date Diagnosis [place] [address] [place] [id number] [place] [phone] Mar, [place] [address] [address] Feb, Attention deficit hyperactiv ity disorder (ADHD), combined type F90.2 and Generalized anxiety disorder F41.1 [place] [address] [place] [id number] [address] [place] [address] Feb, Adjustment disorder with anx iety F43.22 [place] [address] [place] [id number] [address] [place] [address] Jan, Adjustment disorder with anx iety F43.22 [place] [address] [place] [id number] [address] [place] [address] Aug, Blood in stool K92.1 and His tory of hemorrhoids Z87.19 [place] [address] [place] [id number] [address] [place] [address] Jul, Attention deficit hyperactiv ity disorder (ADHD), combined type F90.2 [facility] [address] [facility] [id number] [address] [place] [address] 19 Jul, 2018 Attention deficit hyperactiv ity disorder (ADHD), combined type F90.2 and Adjustment disorder with anxiety F43.22 [facility] [address] [facility] [id number] [address] [place] [address] 26 Jun, 2018 Bloody stools K92.1 and Acut e bilateral low back pain without sciatica M54.5 [facility] [address] [facility] [id number] [address] [place] [address] 08 Jun, 2018 Attention deficit hyperactiv ity disorder (ADHD), combined type F90.2 [facility] [address] [place] [id number] [address] [place] [address] 15 May, 2018 Attention deficit hyperactiv ity disorder (ADHD), combined type F90.2 [facility] [address] [place] [id number] [address] [place] [address] 10 Apr, 2018 Attention deficit hyperactiv ity disorder (ADHD), combined type F90.2 [facility] [address] [facility] [id number] [address] [place] [address] Mar, Attention deficit hyperactiv ity disorder (ADHD), combined type F90.2 [facility] [address] [place] [id number] [address] [place] [id number] 14 Mar, 2018 Attention deficit hyperactiv ity disorder (ADHD), combined type F90.2 [facility] [address] [facility] [id number] [address] [place] [address] 14 Mar, 2018 Attention deficit hyperactiv ity disorder (ADHD), combined type F90.2 and High risk medication use Z79.899 [facility] [address] [facility] [id number] [address] [place] [address] 14 Mar, 2018 Gastroenteritis K52.9 [facility] [address] [facility] [id number] [address] [place] [address] Feb, Attention deficit hyperactiv ity disorder (ADHD), combined type F90.2 [facility] [address] [id number] [address] [place] [address] Jan, Attention deficit hyperactiv ity disorder (ADHD), combined type F90.2 and High risk medication use Z79.899 [place] [address] [place], [place] [id number] 13 Sep, 2017 Acute cystitis without hematuria N30.00 and Acute suppurative otitis media of left ear with spontaneous rupture of tympanic membrane, recurrence not specified H66.012 [place] [address] [place], [place] [id number] 57 Jul, Seborrheic keratoses L82.1 and Mood disorder F39 [address] [id number] Jul, Attention deficit hyperactivity disorder (ADHD), predominantly inattentive type F90.[address] [id number] Jul, Mood disorder F39 [facility] [address] [facility] [id number] [address] [place] [address] Sep, [facility] [address] [facility] [id number] [address] [place] [address] Aug, [facility] [address] [facility] [id number] [address] [place] [address] Jul, [facility] [address] [facility] [id number] [address] [place] [address] Jul, [facility] [address] [facility] [id number] [address] [place] [address] Jun, Attention deficit hyperactiv ity disorder (ADHD), combined type F90.2 [facility] [address] [id number] [address] [place] [address] May, [facility] [address] [facility] [id number] [address] [place] [address] 12 Apr, 2016 Attention deficit hyperactiv ity disorder (ADHD), combined type F90.2 [facility] [address] [facility] [id number] [address] [place] [address] Mar, Acute non-recurrent maxillar y sinusitis J01.00 [facility] [address] [id number] [address] [place] [address] Mar, Acute non-recurrent maxillar y sinusitis J01.00 [facility] [address] [facility] [id number] [address] [place] [address] Mar, [facility] [address] [id number] [address] [place] [address] Feb, Gastroenteritis K52.9 [facility] [address] [id number] [address] [place] [address] Feb, [facility] [address] [facility] [id number] [address] [place] [address] Jan, [facility] [address] [facility] [id number] [address] [place] [address] December, [facility] [address] [facility] [id number] [address] [place] [address] December, Rash R21 [facility] [address] [facility] [id number] [address] [place] [address] Nov, [facility] [address] [facility] [id number] [address] [place] [address] Nov, [facility] [address] [facility] [id number] [address] [place] [address] Oct, [facility] [address] [facility] [id number] [address] [place] [address] Oct, Attention deficit hyperactiv ity disorder (ADHD), combined type F90.2 [facility] [address] [facility] [id number] [address] [place] [address] Sep, [facility] [address] [facility] [id number] [address] [place] [address] Sep, Viral syndrome B34.9 and HSV (herpes simplex virus) infection B00.9 [facility] [address] [facility] [id number] [address] [place] [address] Aug, [facility] [address] [facility] [id number] [address] [place] [address] Aug, [facility] [address] [facility] [id number] [address] [place] [address] Jul, [facility] [address] [facility] [id number] [address] [place] [address] Jun, Gastroenteritis K52.9 [facility] [address] [place] [id number] [address] [place] [address] Jun, [facility] [address] [place] [id number] [address] [place] [address] Jun, Attention deficit hyperactiv ity disorder (ADHD), combined type F90.2 [facility] [address] [place] [id number] [address] [place] [address] Jun, [facility] [address] [facility] [id number] [address] [place] [address] May, 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 [facility] [address] [place] [id number] [address] [place] [address] May, [facility] [address] [place] [id number] [address] [place] [address] Apr, [facility] [address] [facility] [id number] [address] [place] [address] Mar, [facility] [address] [facility] [id number] [address] [place] [address] Feb, [facility] [address] [place] [id number] [address] [place] [address] Jan, Poison janneth 692.6 [facility] [address] [place] [id number] [address] [place] [address] Jan, Attention deficit disorder ( ADD) 314.00 [facility] [address] [id number] [address] [place] [address], [place] [address] Jan, [facility] [address] [id number] [address] [place] [address], [place] [address] Jan, Anni janneth aruna 692.6 [facility] [address] [id number] [address] [place] [address], [place] [address] December, [facility] [address] [id number] [address] [place] [address], [place] [address] Nov, [facility] [address] [id number] [address] [place] [address], [place] [address] Nov, [facility] [address] [id number] [address] [place] [address] Oct, [facility] [address] [id number] [address] [place] [address], [place] [address] Oct, [facility] [address] [id number] [address] [place] [address] Oct, [facility] [address] [id number] [address] [place] [address], [place] [address] Oct, [facility] [address] [id number] [address] [place] [address] Oct, [facility] [address] [id number] [address] [place] [address] Oct, [facility] [address] [id number] [address] [place] [address] Oct, [facility] [address] [id number] [address] [place] [address], [place] [address] Oct, [facility] [address] [id number] [address] [place] [address] Sep, [facility] [address] [id number] [address] [place] [address] Sep, [facility] [address] [id number] [address] [place] [address], [place] [address] Aug, [facility] [address] [id number] [address] [place] [address], [place] [address] Aug, [facility] [address] [id number] [address] [place] [address], [place] [address] Aug, [facility] [address] [id number] [address] [place] [address], [place] [address] Aug, [facility] [address] [id number] [address] [place] [address], [place] [address] Aug, [facility] [address] [id number] [address] [place] [address], [place] [address] Aug, [facility] [address] [id number] [address] [place] [address], [place] [address] Jul, [facility] [address] [id number] [address] [place] [address], [place] [address] Jul, [facility] [address] [id number] [address] [place] [address], [place] [address] Jun, [facility] [address] [id number] [address] [place] [address], [place] [address] Jun, [facility] [address] [id number] [address] [place] [address], [place] [address] Jun, [facility] [address] [id number] [address] [place] [address], [place] [address] Jun, [facility] [address] [id number] [address] [place] [address], [place] [address] May, [facility] [address] [id number] [address] [place] [address], [place] [address] May, [facility] [address] [id number] [address] [place] [address], [place] [address] Apr, [facility] [address] [id number] [address] [place] [address], [place] [address] Apr, [facility] [address] [id number] [address] [place] [address], [place] [address] Mar, [facility] [address] [id number] [address] [place] [address], [place] [address] Mar, [facility] [address] [id number] [address] [place] [address], [place] [address] Feb, [facility] [address] [id number] [address] [place] [address], [place] [address] Feb, [facility] [address] [id number] [address] [place] [address], [place] [address] Feb, [facility] [address] [id number] [address] [place] [address], [place] [address] Feb, [facility] [address] [id number] [address] [place] [address], [place] [address] Jan, [facility] [address] [id number] [address] [place] [address], [place] [address] Jan, [facility] [address] [id number] [address] [place] [address], [place] [address] Jan, [facility] [address] [id number] [address] [place] [address], [place] [address] Jan, [facility] [address] [id number] [address] [place] [address], [place] [address] December, [facility] [address] [id number] [address] [place] [address], [place] [address] December, [facility] [address] [id number] [address] [place] [address], [place] [address] December, [facility] [address] [id number] [address] [place] [address], [place] [address] December, [facility] [address] [id number] [address] [place] [address], [place] [address] Nov, [facility] [address] [id number] [address] [place] [address] Nov, [facility] [address] [id number] [address] [place] [address], [place] [address] Oct, [facility] [address] [id number] [address] [place] [address], [place] [address] Oct, [facility] [address] [id number] [address] [place] [address], [place] [address] Sep, [facility] [address] [id number] [address] [place] [address], [place] [address] Sep, [facility] [address] [id number] [address] [place] [address], [place] [address] Aug, [facility] [address] [id number] [address] [place] [address], [place] [address] Aug, [facility] [address] [id number] [address] [place] [address], [place] [address] Jul, [facility] [address] [id number] [address] [place] [address], [place] [address] Jul, [facility] [address] [id number] [address] [place] [address], [place] [address] Jun, [facility] [address] [id number] [address] [place] [address], [place] [address] Jun, [facility] [address] [id number] [address] [place] [address], [place] [address] Jun, [facility] [address] [id number] [address] [place] [address], [place] [address] Jun, [facility] [address] [id number] [address] [place] [address], [place] [address] May, [facility] [address] [id number] [address] [place] [address], [place] [address] May, [facility] [address] [id number] [address] [place] [address], [place] [address] May, [facility] [address] [id number] [facility] [place] [address] Apr, [facility] [address] [id number] [address] [place] [address], [place] [address] Mar, [facility] [address] [id number] [address] [place] [address], [place] [address] Mar, [facility] [address] [id number] [address] [place] [address], [place] [address] Mar, [facility] [address] [id number] [address] [place] [address], [place] [address] Mar, [facility] [address] [id number] [address] [place] [address], [place] [address] Feb, [facility] [address] [id number] [address] [place] [address], [place] [address] Feb, [facility] [address] [id number] [address] [place] [address], [place] [address] Feb, [facility] [address] [id number] [address] [place] [address], [place] [address] Jan, [facility] [address] [id number] [address] [place] [address], [place] [address] Jan, [facility] [address] [id number] [address] [place] [address], [place] [address] December, [facility] [address] [id number] [address] [place] [address], [place] [address] Nov, [facility] [address] [id number] [address] [place] [address], [place] [address] Nov, [facility] [address] [id number] [address] [place] [address], [place] [address] Oct, [facility] [address] [id number] [address] [place] [address], [place] [address] Oct, [facility] [address] [id number] [address] [place] [address], [place] [address] Oct, [facility] [address] [id number] [address] [place] [address], [place] [address] Sep, [facility] [address] [id number] [address] [place] [address], [place] [address] Sep, [facility] [address] [id number] [address] [place] [address], [place] [address] Aug, [facility] [address] [id number] [address] [place] [address], [place] [address] Jun, [facility] [address] [id number] [address] [place] [address], [place] [address] Jun, [facility] [address] [id number] [address] [place] [address], [place] [address] Jun, [facility] [address] [id number] [address] [place] [address], [place] [address] Jun, [facility] [address] [id number] [address] [place] [address], [place] [address] Jun, [facility] [address] [id number] [address] [place] [address], [place] [address] Jun, [facility] [address] [id number] [address] [place] [address], [place] [address] Jun, [facility] [address] [id number] [address] [place] [address], [place] [address] Jun, [facility] [address] [id number] [address] [place] [address], [place] [address] May, [facility] [address] [id number] [address] [place] [address], [place] [address] May, [facility] [address] [id number] [address] [place] [address], [place] [address] May, [facility] [address] [id number] [address] [place] [address], [place] [address] May, [facility] [address] [id number] [address] [place] [address], [place] [address] 04 May, 2012 [facility] [address] [id number] [address] [place] [address], [place] [address] 03 May, 2012 [facility] [address] [id number] [address] [place] [address], [place] [address] 08 Apr, 2012 [facility] [address] [id number] [address] [place] [address], [place] [address] 06 Apr, 2012 [facility] [address] [id number] [address] [place] [address], [place] [address] Mar, [facility] [address] [id number] [address] [place] [address], [place] [address] Feb, [facility] [address] [id number] [address] [place] [address], [place] [address] Jan, [facility] [address] [id number] [address] [place] [address], [place] [address] December, [facility] [address] [id number] [address] [place] [address], [place] [address] Nov, [facility] [address] [id number] [address] [place] [address], [place] [address] 24 Oct, 2011 [facility] [address] [id number] [address] [place] [address], [place] [address] Oct, [facility] [address] [id number] [address] [place] [address], [place] [address] Aug, [facility] [address] [id number] [address] [place] [address], [place] [address] 22 Jul, 2011 [facility] [address] [id number] [address] [place] [address], [place] [address] 15 Jun, 2011 [facility] [address] [id number] [address] [place] [address], [place] [address] 14 Jun, 2011 [facility] [address] [id number] [address] [place] [address], [place] [address] May, [facility] [address] [id number] [address] [place] [phone] May, [facility] [address] [id number] [address] [place] [phone] Aug, [facility] [address] [id number] [address] [place] [phone] Jul, [facility] [address] [id number] [address] [place] [phone] Jul, [facility] [address] [id number] [address] [place] [phone] Jun, [facility] [address] [id number] [address] [place] [id number] Jun, [facility] [address] [id number] [address] [place] [phone] Jun, [facility] [address] [id number] [address] [place] [phone] Jun, [facility] [address] [id number] [address] [place] [phone] Jun, [facility] [address] [id number] [address] [place] [phone] May, [facility] [address] [id number] [address] [place] [phone] May, [facility] [address] [id number] [address] [place] [phone] May, IMMUNIZATIONS No Known Immunizations SOCIAL HISTORY Never Assessed REASON FOR VISIT PLAN OF CARE VITAL SIGNS Height 69 in 2014-10-28 Weight 200.38 lbs 2014-10-28 Temperature 97.8 degrees Fahrenheit 2014-10-28 Heart Rate 72 bpm 2014-10-28 Respiratory Rate 18 2014-10-28 Blood pressure systolic 138 mmHg 2014-10-28 Blood pressure diastolic 84 mmHg 2014-10-28 MEDICATIONS Unknown Medications RESULTS No Results PROCEDURES No Known procedures INSTRUCTIONS MEDICATIONS ADMINISTERED No Known Medications MEDICAL (GENERAL) HISTORY Type Description Date Medical History attention deficit hyperactivity disorder Medical History Mood disorder Surgical History No Surgical history information Hospitalization History [facility] P[facility] 04/2016
--- OUTSIDE RECORDS SUMMARY | 2020-02-16 14:16 | XMS REPORT ---
Author Author Andrew REES Organization [facility] [place] Address [address] [place] [address] Care Team Providers Care Bulldogger Name Role Phone SYDNEY REESWNYA Unavailable PROBLEMS Type Condition ICD9-CM Code LKH28-ZN Code Onset Dates Condition S tatus SNOMED Code Problem Attention deficit hyperactiv ity disorder (ADHD), predominantly inattentive type F90.0 Active 87854242 Problem Adjustment disorder with anxiety F43.22 Active [id number] Problem Attention deficit hyperactivity disorder (ADHD), combi david type F90.2 Active 115924664 Problem Mood disorder F39 Active 035715 05 ALLERGIES No Information ENCOUNTERS Encounter Location Date Diagnosis [place] [address] [place] [id number] [address] [place] [phone] Feb, [place] [address] [facility] [id number] [address] [place] [phone] Feb, [place] [address] [place] [id number] [address] [place] [phone] Jan, Adjustment disorder with anx iety F43.22 [place] [address] [place] [id number] [address] [place] [phone] Aug, Blood in stool K92.1 and His tory of hemorrhoids Z87.19 [facility] [place] [address] [facility] [id number] [address] [place] [phone] Jul, Attention deficit hyperactiv ity disorder (ADHD), combined type F90.2 [facility] [place] [address] [facility] [id number] [address] [place] [phone] Jul, Attention deficit hyperactiv ity disorder (ADHD), combined type F90.2 and Adjustment disorder with anxiety F43.22 [place] [address] [place] [id number] [address] [place] [phone] Jun, Bloody stools K92.1 and Acut e bilateral low back pain without sciatica M54.5 [facility] [place] [address] [facility] [id number] [address] [place] [phone] 08 Jun, 2018 Attention deficit hyperactiv ity disorder (ADHD), combined type F90.2 [facility] [place] [address] [id number] [address] [place] [phone] 15 May, 2018 Attention deficit hyperactiv ity disorder (ADHD), combined type F90.2 [facility] [place] [address] [facility] [id number] [address] [place] [phone] Apr, Attention deficit hyperactiv ity disorder (ADHD), combined type F90.2 [facility] [place] [address] [id number] [address] [place] [phone] Mar, Attention deficit hyperactiv ity disorder (ADHD), combined type F90.2 [facility] [place] [address] [id number] [address] [place] [phone] Mar, Attention deficit hyperactiv ity disorder (ADHD), combined type F90.2 [facility] [place] [address] [id number] [address] [place] [phone] Mar, Attention deficit hyperactiv ity disorder (ADHD), combined type F90.2 and High risk medication use Z79.899 [facility] [place] [address] [id number] [address] [place] [phone] 14 Mar, 2018 Gastroenteritis K52.9 [facility] [place] [address] [facility] [id number] [address] [place] [phone] Feb, Attention deficit hyperactiv ity disorder (ADHD), combined type F90.2 [facility] [place] [address] [facility] [id number] [address] [place] [phone] 05 Jan, 2018 Attention deficit hyperactiv ity disorder (ADHD), combined type F90.2 and High risk medication use Z79.899 [facility] [address] [place], [place] [id number] 13 Sep, 2017 Acute cystitis without hematuria N30.00 and Acute suppurative otitis media of left ear with spontaneous rupture of tympanic membrane, recurrence not specified H66.012 [place] [address] [place] [id number] 57 Jul, Seborrheic keratoses L82.1 and Mood disorder F39 [place] [address] [place], [place] [id number] 57 Jul, Attention deficit hyperactivity disorder (ADHD), predominantly inattentive type F90.0 [place] [address] [place] [id number] 57 Jul, Mood disorder F39 [facility] [place] [address] [id number] [address] [place] [phone] Sep, [facility] [place] [address] [id number] [address] [place] [phone] Aug, [facility] [place] [address] [id number] [address] [place] [phone] Jul, [facility] [place] [address] [id number] [address] [place] [phone] Jul, [facility] [place] [address] [id number] [address] [place] [phone] Jun, Attention deficit hyperactiv ity disorder (ADHD), combined type F90.2 [facility] [place] [address] [id number] [address] [place] [phone] May, [facility] [place] [address] [id number] [address] [place] [phone] Apr, Attention deficit hyperactiv ity disorder (ADHD), combined type F90.2 [facility] [place] [address] [id number] [address] [place] [phone] Mar, Acute non-recurrent maxillar y sinusitis J01.00 [facility] [address] [id number] [address] [place] [phone] Mar, Acute non-recurrent maxillar y sinusitis J01.00 [facility] [place] [address] [id number] [address] [place] [address], [place] [address] Mar, [facility] [address] [id number] [address] [place] [address], [place] [address] Feb, Gastroenteritis K52.9 [facility] [place] [address] [id number] [address] [place] [address], [place] [address] Feb, [facility] [place] [address] [id number] [address] [place] [address], [place] [address] Jan, [facility] [place] [address] [id number] [address] [place] [address], [place] [address] December, [facility] [place] [address] [id number] [address] [place] [address], [place] [address] December, Rash R21 [facility] [place] [address] [facility] [id number] [address] [place] [address], [place] [address] Nov, [facility] [place] [address] [facility] [id number] [address] [place] [phone] Nov, [facility] [place] [address] [id number] [address] [place] [phone] Oct, [facility] [place] [address] [facility] [id number] [address] [place] [phone] Oct, Attention deficit hyperactiv ity disorder (ADHD), combined type F90.2 [facility] [place] [address] [facility] [id number] [address] [place] [phone] Sep, [facility] [place] [address] [facility] [id number] [address] [place] [phone] Sep, Viral syndrome B34.9 and HSV (herpes simplex virus) infection B00.9 [facility] [place] [address] [facility] [id number] [address] [place] [phone] Aug, [facility] [place] [address] [facility] [id number] [address] [place] [phone] Aug, [facility] [place] [address] [facility] [id number] [address] [place] [phone] Jul, [facility] [place] [address] [facility] [id number] [address] [place] [phone] Jun, Gastroenteritis K52.9 [facility] [place] [address] [facility] [id number] [address] [place] [phone] Jun, [facility] [place] [address] [id number] [address] [place] [phone] Jun, Attention deficit hyperactiv ity disorder (ADHD), combined type F90.2 [facility] [place] [address] [facility] [id number] [address] [place] [phone] Jun, [facility] [place] [address] [id number] [address] [place] [phone] May, 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 [facility] [place] [address] [id number] [address] [place] [phone] May, [facility] [place] [address] [facility] [id number] [address] [place] [phone] Apr, [facility] [place] [address] [id number] [address] [place] [phone] Mar, [facility] [place] [address] [facility] [id number] [address] [place] [phone] Feb, [facility] [place] [address] [facility] [id number] [address] [place] [phone] Jan, Poison janneth 692.6 [facility] [place] [address] [facility] [id number] [address] [place] [phone] Jan, Attention deficit disorder ( ADD) 314.00 [facility] [place] [address] [facility] [id number] [address] [place] [phone] Jan, [facility] [place] [address] [facility] [id number] [address] [place] [phone] Jan, Poison janneth dermatitis 692.6 [facility] [address] [id number] [address] [place] [address], [place] [address] 14 Dec, 2014 [facility] [address] [id number] [address] [place] [address], [place] [address] 14 Nov, 2014 [facility] [address] [id number] [address] [place] [address], [place] [address] 13 Nov, 2014 [facility] [address] [id number] [address] [place] [address], [place] [address] 13 Oct, 2014 [facility] [address] [id number] [address] [place] [address], [place] [address] Oct, [facility] [address] [id number] [address] [place] [address], [place] [address] Oct, [facility] [address] [id number] [address] [place] [address], [place] [address] Oct, [facility] [address] [id number] [address] [place] [address], [place] [address] Oct, [facility] [address] [id number] [address] [place] [address], [place] [address] 05 Oct, 2014 [facility] [address] [id number] [address] [place] [address], [place] [address] Oct, [facility] [address] [id number] [address] [place] [address], [place] [address] Oct, [facility] [address] [id number] [address] [place] [address], [place] [address] Sep, [facility] [address] [id number] [address] [place] [address], [place] [address] Sep, [facility] [address] [id number] [address] [place] [address], [place] [address] Aug, [facility] [address] [id number] [address] [place] [address], [place] [address] Aug, [facility] [address] [id number] [address] [place] [address], [place] [address] Aug, [facility] [address] [id number] [address] [place] [address], [place] [address] Aug, [facility] [address] [id number] [address] [place] [address], [place] [address] Aug, [facility] [address] [id number] [address] [place] [address], [place] [address] Aug, [facility] [address] [id number] [address] [place] [address], [place] [address] Jul, [facility] [address] [id number] [address] [place] [address], [place] [address] Jul, [facility] [address] [id number] [address] [place] [address], [place] [address] Jun, [facility] [address] [id number] [address] [place] [address], [place] [address] Jun, [facility] [address] [id number] [address] [place] [address], [place] [address] Jun, [facility] [address] [id number] [address] [place] [address], [place] [address] Jun, [facility] [address] [id number] [address] [place] [address], [place] [address] May, [facility] [address] [id number] [address] [place] [address], [place] [address] May, [facility] [address] [id number] [address] [place] [address], [place] [address] Apr, [facility] [address] [id number] [address] [place] [address], [place] [address] Apr, [facility] [address] [id number] [address] [place] [address], [place] [address] Mar, [facility] [address] [id number] [address] [place] [address], [place] [address] Mar, [facility] [address] [id number] [address] [place] [address], [place] [address] Feb, [facility] [address] [id number] [address] [place] [address], [place] [address] Feb, [facility] [address] [id number] [address] [place] [address], [place] [address] Feb, [facility] [address] [id number] [address] [place] [address], [place] [address] Feb, [facility] [address] [id number] [address] [place] [address], [place] [address] Jan, [facility] [address] [id number] [address] [place] [address], [place] [address] Jan, [facility] [address] [id number] [address] [place] [address], [place] [address] Jan, [facility] [address] [id number] [address] [place] [address], [place] [address] Jan, [facility] [address] [id number] [address] [place] [address], [place] [address] December, [facility] [address] [id number] [address] [place] [address], [place] [address] December, [facility] [address] [id number] [address] [place] [address], [place] [address] December, [facility] [address] [id number] [address] [place] [address], [place] [address] December, [facility] [address] [id number] [address] [place] [address], [place] [address] Nov, [facility] [address] [id number] [address] [place] [address], [place] [address] Nov, [facility] [address] [id number] [address] [place] [address], [place] [address] Oct, [facility] [address] [id number] [address] [place] [address], [place] [address] Oct, [facility] [address] [id number] [address] [place] [address], [place] [address] Sep, [facility] [address] [id number] [address] [place] [address], [place] [address] Sep, [facility] [address] [id number] [address] [place] [address], [place] [address] Aug, [facility] [address] [id number] [address] [place] [address], [place] [address] Aug, [facility] [address] [id number] [address] [place] [address], [place] [address] Jul, [facility] [address] [id number] [address] [place] [address], [place] [address] Jul, [facility] [address] [id number] [address] [place] [address], [place] [address] Jun, [facility] [address] [id number] [address] [place] [address], [place] [address] Jun, [facility] [address] [id number] [address] [place] [address], [place] [address] Jun, [facility] [address] [id number] [address] [place] [address], [place] [address] Jun, [facility] [address] [id number] [address] [place] [address], [place] [address] May, [facility] [address] [id number] [address] [place] [address], [place] [address] May, [facility] [address] [id number] [address] [place] [address], [place] [address] May, [facility] [address] [id number] [address] [place] [address], [place] [address] 30 Apr, 2013 [facility] [address] [id number] [address] [place] [address], [place] [address] Mar, [facility] [address] [id number] [address] [place] [address], [place] [address] Mar, [facility] [address] [id number] [address] [place] [address], [place] [address] Mar, [facility] [address] [id number] [address] [place] [address], [place] [address] Mar, [facility] [address] [id number] [address] [place] [address], [place] [address] Feb, [facility] [address] [id number] [address] [place] [address], [place] [address] Feb, [facility] [address] [id number] [address] [place] [address], [place] [address] Feb, [facility] [address] [id number] [address] [place] [address], [place] [address] Jan, [facility] [address] [id number] [address] [place] [address], [place] [address] Jan, [facility] [address] [id number] [address] [place] [address], [place] [address] December, [facility] [address] [id number] [address] [place] [address], [place] [address] Nov, [facility] [address] [id number] [address] [place] [address], [place] [address] Nov, [facility] [address] [id number] [address] [place] [address], [place] [address] Oct, [facility] [address] [id number] [address] [place] [address], [place] [address] Oct, [facility] [address] [id number] [address] [place] [address], [place] [address] Oct, [facility] [address] [id number] [address] [place] [address], [place] [address] Sep, [facility] [address] [id number] [address] [place] [address], [place] [address] Sep, [facility] [address] [id number] [address] [place] [address], [place] [address] Aug, [facility] [address] [id number] [address] [place] [address], [place] [address] Jun, [facility] [address] [id number] [address] [place] [address], [place] [address] Jun, [facility] [address] [id number] [address] [place] [address], [place] [address] Jun, [facility] [address] [id number] [address] [place] [address], [place] [address] Jun, [facility] [address] [id number] [address] [place] [address], [place] [address] Jun, [facility] [address] [id number] [address] [place] [address], [place] [address] Jun, [facility] [address] [id number] [address] [place] [address], [place] [address] Jun, [facility] [address] [id number] [address] [place] [address], [place] [address] Jun, [facility] [address] [id number] [address] [place] [address], [place] [address] May, [facility] [address] [id number] [address] [place] [address], [place] [address] May, [facility] [address] [id number] [address] [place] [address], [place] [address] May, [facility] [address] [id number] [address] [place] [address], [place] [address] May, [facility] [address] [id number] [address] [place] [address], [place] [address] May, [facility] [address] [id number] [address] [place] [address], [place] [address] May, [facility] [address] [id number] [address] [place] [address] [address] 08 Apr, 2012 [facility] [address] [id number] [address] [place] [address], [place] [address] 06 Apr, 2012 [facility] [address] [id number] [address] [place] [address], [place] [address] Mar, [facility] [address] [id number] [address] [place] [address], [place] [address] Feb, [facility] [address] [id number] [address] [place] [address], [place] [address] Jan, [facility] [address] [id number] [address] [place] [address], [place] [address] December, [facility] [address] [id number] [address] [place] [address], [place] [address] Nov, [facility] [address] [id number] [address] [place] [address], [place] [address] Oct, [facility] [address] [id number] [address] [place] [address], [place] [address] Oct, [facility] [address] [id number] [address] [place] [address], [place] [address] Aug, [facility] [address] [id number] [address] [place] [address], [place] [address] Jul, [facility] [address] [id number] [address] [place] [address], [place] [address] 15 Jun, 2011 [facility] [address] [id number] [address] [place] [address], [place] [address] 14 Jun, 2011 [facility] [address] [id number] [address] [place] [address], [place] [address] May, [facility] [facility] [address] [id number] [address] [place] [address], [place] [id number] 31 May, 2011 [facility] [address] [id number] [address] [place] [address], [place] [phone] 12 Aug, 2010 [facility] [address] [id number] [address] [place] [phone] Jul, [facility] [place], [facility] [address] [id number] [address] [place] [phone] Jul, [facility] [place], [facility] [address] [id number] [address] [place] [phone] Jun, [facility] [place], [facility] [address] [id number] [address] [place] [phone] Jun, [facility] [place], [facility] [address] [id number] [address] [place] [phone] Jun, [facility] [place], [facility] [address] [id number] [address] [place] [phone] Jun, [facility] [place], [facility] [address] [id number] [address] [place] [phone] Jun, [facility], [place], [facility] [address] [facility] [id number] [address] [place] [phone] May, [facility], [place], [facility] [address] [id number] [address] [place] [phone] May, [facility], [place] [address] [facility] [id number] [address] [place] [phone] May, IMMUNIZATIONS No Known Immunizations SOCIAL HISTORY Never Assessed REASON FOR VISIT PLAN OF CARE VITAL SIGNS MEDICATIONS Unknown Medications RESULTS No Results PROCEDURES No Known procedures INSTRUCTIONS MEDICATIONS ADMINISTERED No Known Medications MEDICAL (GENERAL) HISTORY Type Description Date Medical History attention deficit hyperactivity disorder Surgical History No Surgical history information Hospitalization History [facility] Pneum[facility] 04/2016
--- OUTSIDE RECORDS SUMMARY | 2020-02-16 14:16 | XMS REPORT ---
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 Name Role Phone Migration, Doctor Unavailable Unavailable PROBLEMS Type Condition ICD9-CM Code [id number] Code Onset Dates Condition S tatus SNOMED Code Problem Adjustment disorder with anxiety F43.22 Active 98200594 Problem Generalized anxiety disorder F41.1 A ctive 72545163 Problem Attention deficit hyperactivity disorder (ADHD), combi david type F90.2 Active 407844356 Problem Mood disorder F39 Active 901134 05 Problem Attention deficit hyperactiv ity disorder (ADHD), predominantly inattentive type F90.0 Active [id number] ALLERGIES No Information ENCOUNTERS Encounter Location Date Diagnosis [place] [address] [place] [id number] [place] [phone] Mar, [place] [address] [address] Feb, Attention deficit hyperactiv ity disorder (ADHD), combined type F90.2 and Generalized anxiety disorder F41.1 [place] [address] [place] [id number] [address] [place] [address] Feb, Adjustment disorder with anx iety F43.22 [place] [address] [place] [id number] [address] [place] [address] Jan, Adjustment disorder with anx iety F43.22 [place] [address] [place] [id number] [address] [place] [address] Aug, Blood in stool K92.1 and His tory of hemorrhoids Z87.19 [place] [address] [place] [id number] [address] [place] [address] Jul, Attention deficit hyperactiv ity disorder (ADHD), combined type F90.2 [place] [address] [place] [id number] [address] [place] [address] Jul, Attention deficit hyperactiv ity disorder (ADHD), combined type F90.2 and Adjustment disorder with anxiety F43.22 [facility] [address] [place] [id number] [address] [place] [phone] 26 Jun, 2018 Bloody stools K92.1 and Acut e bilateral low back pain without sciatica M54.5 [facility] [address] [place] [id number] [address] [place] [address] 08 Jun, 2018 Attention deficit hyperactiv ity disorder (ADHD), combined type F90.2 [place] [address] [place] [id number] [address] [place] [id number] 15 May, 2018 Attention deficit hyperactiv ity disorder (ADHD), combined type F90.2 [place] [address] [place] [id number] [address] [place] [address] 10 Apr, 2018 Attention deficit hyperactiv ity disorder (ADHD), combined type F90.2 [facility] [address] [place] [id number] [address] [place] [address] Mar, Attention deficit hyperactiv ity disorder (ADHD), combined type F90.2 [facility] [address] [place] [id number] [address] [place] [address] Mar, Attention deficit hyperactiv ity disorder (ADHD), combined type F90.2 [facility] [address] [place] [id number] [address] [place] [address] Mar, Attention deficit hyperactiv ity disorder (ADHD), combined type F90.2 and High risk medication use Z79.899 [facility] [address] [place] [id number] [address] [place] [id number] 14 Mar, 2018 Gastroenteritis K52.9 [facility] [address] [place] [id number] [address] [place] [address] Feb, Attention deficit hyperactiv ity disorder (ADHD), combined type F90.2 [facility] [address] [place] [id number] [address] [place] [address] Jan, Attention deficit hyperactiv ity disorder (ADHD), combined type F90.2 and High risk medication use Z79.899 [place] [address] [place], [place] [id number] 13 Sep, 2017 Acute cystitis without hematuria N30.00 and Acute suppurative otitis media of left ear with spontaneous rupture of tympanic membrane, recurrence not specified H66.012 [place] [address] [place], [place] [id number] 57 Jul, Seborrheic keratoses L82.1 and Mood disorder F39 [address] [id number] Jul, Attention deficit hyperactivity disorder (ADHD), predominantly inattentive type F90.[address] [id number] Jul, Mood disorder F39 [facility] [address] [facility] [id number] [address] [place] [address] Sep, [facility] [address] [facility] [id number] [address] [place] [address] Aug, [facility] [address] [id number] [address] [place] [address] Jul, [facility] [address] [facility] [id number] [address] [place] [address] Jul, [facility] [address] [facility] [id number] [address] [place] [address] Jun, Attention deficit hyperactiv ity disorder (ADHD), combined type F90.2 [facility] [address] [id number] [address] [place] [address] May, [facility] [address] [facility] [id number] [address] [place] [address] Apr, Attention deficit hyperactiv ity disorder (ADHD), combined type F90.2 [facility] [address] [facility] [id number] [address] [place] [address] Mar, Acute non-recurrent maxillar y sinusitis J01.00 [facility] [address] [id number] [address] [place] [address] Mar, Acute non-recurrent maxillar y sinusitis J01.00 [facility] [address] [facility] [id number] [address] [place] [id number] 11 Mar, 2016 [facility] [address] [facility] [id number] [address] [place] [address] Feb, Gastroenteritis K52.9 [facility] [address] [facility] [id number] [address] [place] [address] Feb, [facility] [address] [facility] [id number] [address] [place] [address] Jan, [facility] [address] [facility] [id number] [address] [place] [address] December, [facility] [address] [facility] [id number] [address] [place] [address] December, Rash R21 [facility] [address] [facility] [id number] [address] [place] [id number] Nov, [facility] [address] [facility] [id number] [address] [place] [address] Nov, [facility] [address] [facility] [id number] [address] [place] [id number] Oct, [facility] [address] [facility] [id number] [address] [place] [phone] Oct, Attention deficit hyperactiv ity disorder (ADHD), combined type F90.2 [facility] [address] [facility] [id number] [address] [place] [address] Sep, [facility] [address] [facility] [id number] [address] [place] [address] Sep, Viral syndrome B34.9 and HSV (herpes simplex virus) infection B00.9 [facility] [address] [facility] [id number] [address] [place] [address] Aug, [facility] [address] [facility] [id number] [address] [place] [phone] Aug, [facility] [address] [facility] [id number] [address] [place] [id number] Jul, [facility] [address] [place] [id number] [address] [place] [address] Jun, Gastroenteritis K52.9 [facility] [address] [place] [id number] [address] [place] [phone] Jun, [facility] [address] [place] [id number] [address] [place] [address] Jun, Attention deficit hyperactiv ity disorder (ADHD), combined type F90.2 [facility] [address] [place] [id number] [address] [place] [address] Jun, [facility] [address] [place] [id number] [address] [place] [address] May, 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 [facility] [address] [place] [id number] [address] [place] [id number] May, [facility] [address] [place] [id number] [address] [place] [address] Apr, [facility] [address] [facility] [id number] [address] [place] [phone] Mar, [facility] [address] [facility] [id number] [address] [place] [id number] Feb, [facility] [address] [facility] [id number] [address] [place] [phone] Jan, Poison janneth 692.6 [facility] [address] [place] [id number] [address] [place] [id number] 17 Jan, 2015 Attention deficit disorder ( ADD) 314.00 [facility] [address] [place] [id number] [address] [place] [address] Jan, [facility] [address] [id number] [address] [place] [address], [place] [address] Jan, Anni valdovinos 692.6 [facility] [address] [id number] [address] [place] [address], [place] [address] December, [facility] [address] [id number] [address] [place] [address], [place] [address] Nov, [facility] [address] [id number] [address] [place] [address], [place] [address] Nov, [facility] [address] [id number] [address] [place] [address], [place] [address] Oct, [facility] [address] [id number] [address] [place] [address], [place] [address] Oct, [facility] [address] [id number] [address] [place] [address], [place] [address] Oct, [facility] [address] [id number] [address] [place] [address], [place] [address] Oct, [facility] [address] [id number] [address] [place] [address], [place] [address] Oct, [facility] [address] [id number] [address] [place] [address], [place] [address] Oct, [facility] [address] [id number] [address] [place] [address], [place] [address] Oct, [facility] [address] [id number] [address] [place] [address], [place] [address] Oct, [facility] [address] [id number] [address] [place] [address], [place] [address] Sep, [facility] [address] [id number] [address] [place] [address], [place] [address] Sep, [facility] [address] [id number] [address] [place] [address], [place] [address] Aug, [facility] [address] [id number] [address] [place] [address], [place] [address] Aug, [facility] [address] [id number] [address] [place] [address], [place] [address] Aug, [facility] [address] [id number] [address] [place] [address], [place] [address] Aug, [facility] [address] [id number] [address] [place] [address], [place] [address] Aug, [facility] [address] [id number] [address] [place] [address], [place] [address] Aug, [facility] [address] [id number] [address] [place] [address], [place] [address] Jul, [facility] [address] [id number] [address] [place] [address], [place] [address] Jul, [facility] [address] [id number] [address] [place] [address], [place] [address] Jun, [facility] [address] [id number] [address] [place] [address], [place] [address] Jun, [facility] [address] [id number] [address] [place] [address], [place] [address] Jun, [facility] [address] [id number] [address] [place] [address], [place] [address] Jun, [facility] [address] [id number] [address] [place] [address], [place] [address] May, [facility] [address] [id number] [address] [place] [address], [place] [address] May, [facility] [address] [id number] [address] [place] [address], [place] [address] Apr, [facility] [address] [id number] [address] [place] [address], [place] [address] Apr, [facility] [address] [id number] [address] [place] [address], [place] [address] Mar, [facility] [address] [id number] [facility] [place] [address] Mar, [facility] [address] [id number] [address] [place] [address], [place] [address] Feb, [facility] [address] [id number] [address] [place] [address], [place] [address] Feb, [facility] [address] [id number] [address] [place] [address], [place] [address] Feb, [facility] [address] [id number] [address] [place] [address], [place] [address] Feb, [facility] [address] [id number] [address] [place] [address], [place] [address] Jan, [facility] [address] [id number] [address] [place] [address], [place] [address] Jan, [facility] [address] [id number] [address] [place] [address], [place] [address] Jan, [facility] [address] [id number] [address] [place] [address], [place] [address] Jan, [facility] [address] [id number] [address] [place] [address], [place] [address] December, [facility] [address] [id number] [address] [place] [address], [place] [address] December, [facility] [address] [id number] [address] [place] [address], [place] [address] December, [facility] [address] [id number] [address] [place] [address], [place] [address] December, [facility] [address] [id number] [address] [place] [address], [place] [address] Nov, [facility] [address] [id number] [address] [place] [address], [place] [address] Nov, [facility] [address] [id number] [address] [place] [address], [place] [address] Oct, [facility] [address] [id number] [address] [place] [address], [place] [address] Oct, [facility] [address] [id number] [address] [place] [address], [place] [address] Sep, [facility] [address] [id number] [address] [place] [address], [place] [address] Sep, [facility] [address] [id number] [address] [place] [address], [place] [address] Aug, [facility] [address] [id number] [address] [place] [address], [place] [address] Aug, [facility] [address] [id number] [address] [place] [address], [place] [address] Jul, [facility] [address] [id number] [address] [place] [address], [place] [address] Jul, [facility] [address] [id number] [address] [place] [address], [place] [address] Jun, [facility] [address] [id number] [address] [place] [address], [place] [address] Jun, [facility] [address] [id number] [address] [place] [address], [place] [address] Jun, [facility] [address] [id number] [address] [place] [address], [place] [address] Jun, [facility] [address] [id number] [address] [place] [address], [place] [address] May, [facility] [address] [id number] [address] [place] [address], [place] [address] May, [facility] [address] [id number] [address] [place] [address], [place] [address] May, [facility] [address] [id number] [address] [place] [address], [place] [address] Apr, [facility] [address] [id number] [address] [place] [address], [place] [address] Mar, [facility] [address] [id number] [address] [place] [address], [place] [address] Mar, [facility] [address] [id number] [address] [place] [address], [place] [address] Mar, [facility] [address] [id number] [address] [place] [address], [place] [address] Mar, [facility] [address] [id number] [address] [place] [address], [place] [address] Feb, [facility] [address] [id number] [address] [place] [address], [place] [address] Feb, [facility] [address] [id number] [address] [place] [address], [place] [address] Feb, [facility] [address] [id number] [address] [place] [address], [place] [address] Jan, [facility] [address] [id number] [address] [place] [address], [place] [address] Jan, [facility] [address] [id number] [address] [place] [address], [place] [address] December, [facility] [address] [id number] [address] [place] [address], [place] [address] Nov, [facility] [address] [id number] [address] [place] [address], [place] [address] Nov, [facility] [address] [id number] [address] [place] [address], [place] [address] Oct, [facility] [address] [id number] [address] [place] [address], [place] [address] Oct, [facility] [address] [id number] [address] [place] [address], [place] [address] Oct, [facility] [address] [id number] [address] [place] [address] Sep, [facility] [address] [id number] [address] [place] [address], [place] [address] Sep, [facility] [address] [id number] [address] [place] [address] Aug, [facility] [address] [id number] [address] [place] [address], [place] [address] Jun, [facility] [address] [id number] [address] [place] [address], [place] [address] Jun, [facility] [address] [id number] [address] [place] [address], [place] [address] Jun, [facility] [address] [id number] [address] [place] [address], [place] [address] Jun, [facility] [address] [id number] [address] [place] [address], [place] [address] Jun, [facility] [address] [id number] [address] [place] [address], [place] [address] Jun, [facility] [address] [id number] [address] [place] [address], [place] [address] Jun, [facility] [address] [id number] [address] [place] [address], [place] [address] Jun, [facility] [address] [id number] [address] [place] [address] May, [facility] [address] [id number] [address] [place] [address] May, [facility] [address] [id number] [address] [place] [address], [place] [address] May, [facility] [address] [id number] [address] [place] [address], [place] [address] May, [facility] [address] [id number] [address] [place] [address] May, [facility] [address] [id number] [address] [place] [address], [place] [address] May, [facility] [address] [id number] [address] [place] [address], [place] [address] 08 Apr, 2012 [facility] [address] [id number] [address] [place] [address], [place] [address] 06 Apr, 2012 [facility] [address] [id number] [address] [place] [address], [place] [address] Mar, [facility] [address] [id number] [address] [place] [address], [place] [address] Feb, [facility] [address] [id number] [address] [place] [address], [place] [address] Jan, [facility] [address] [id number] [address] [place] [address], [place] [address] December, [facility] [address] [id number] [address] [place] [address], [place] [address] Nov, [facility] [address] [id number] [address] [place] [address], [place] [address] Oct, [facility] [address] [id number] [address] [place] [address], [place] [address] Oct, [facility] [address] [id number] [address] [place] [address], [place] [address] Aug, [facility] [address] [id number] [address] [place] [address], [place] [address] Jul, [facility] [address] [id number] [address] [place] [address], [place] [address] 15 Jun, 2011 [facility] [address] [id number] [address] [place] [address], [place] [address] 14 Jun, 2011 [facility] [address] [id number] [address] [place] [address], [place] [address] 31 May, 2011 [facility] [address] [id number] [address] [place] [address], [place] [address] May, [facility] [address] [id number] [address] [place] [phone] Aug, [facility] [address] [id number] [address] [place] [id number] Jul, [facility] [address] [id number] [address] [place] [phone] Jul, [facility] [address] [id number] [address] [place] [phone] Jun, [facility] [address] [id number] [address] [place] [phone] Jun, [facility] [address] [id number] [address] [place] [phone] Jun, [facility] [address] [id number] [address] [place] [phone] Jun, [facility] [address] [id number] [address] [place] [phone] Jun, [facility] [address] [id number] [address] [place] [phone] May, [facility] [address] [id number] [address] [place] [phone] May, [facility] [address] [id number] [address] [place] [phone] May, IMMUNIZATIONS No Known Immunizations SOCIAL HISTORY Never Assessed REASON FOR VISIT PLAN OF CARE VITAL SIGNS Height 69 in 2012-02-13 Weight 203 lbs 2012-02-13 Heart Rate 84 bpm 2012-02-13 Blood pressure systolic 112 mmHg 2012-02-13 Blood pressure diastolic 78 mmHg 2012-02-13 MEDICATIONS Unknown Medications RESULTS No Results PROCEDURES No Known procedures INSTRUCTIONS MEDICATIONS ADMINISTERED No Known Medications MEDICAL (GENERAL) HISTORY Type Description Date Medical History attention deficit hyperactivity disorder Medical History Mood disorder Surgical History No Surgical history information Hospitalization History [facility] P[facility] 04/2016
--- OUTSIDE RECORDS SUMMARY | 2020-02-16 14:17 | XMS REPORT ---
Author Author Andrew Garcia Doctor Organization [facility] Address Unknown Phone Unavailable Care Team Providers Care Pediatric Dental Assistant Name Role Phone Migration, Doctor Unavailable Unavailable PROBLEMS Type Condition ICD9-CM Code DUJ32-DP Code Onset Dates Condition S tatus SNOMED Code Problem Attention deficit hyperactiv ity disorder (ADHD), predominantly inattentive type F90.0 Active 49701305 Problem Adjustment disorder with anxiety F43.22 Active 34901040 Problem Attention deficit hyperactivity disorder (ADHD), combi david type F90.2 Active 099069330 Problem Mood disorder F39 Active [id number] 05 ALLERGIES No Information ENCOUNTERS Encounter Location Date Diagnosis [place] [address] [place] [id number] [place] [phone] Jan, [place] [address] [place] [id number] [address] [place] [address] Aug, Blood in stool K92.1 and His tory of hemorrhoids Z87.19 [place] [address] [place] [id number] [address] [place] [address] Jul, Attention deficit hyperactiv ity disorder (ADHD), combined type F90.2 [place] [address] [place] [id number] [address] [place] [address] Jul, Attention deficit hyperactiv ity disorder (ADHD), combined type F90.2 and Adjustment disorder with anxiety F43.22 [facility] [address] [facility] [id number] [address] [place] [address] Jun, Bloody stools K92.1 and Acut e bilateral low back pain without sciatica M54.5 [facility] [address] [place] [id number] [place] [id number] 08 Jun, 2018 Attention deficit hyperactiv ity disorder (ADHD), combined type F90.2 [place] [address] [place] [id number] [place] [id number] 15 May, 2018 Attention deficit hyperactiv ity disorder (ADHD), combined type F90.2 [facility] [address] [facility] [id number] [address] [place] [address] 10 Apr, 2018 Attention deficit hyperactiv ity disorder (ADHD), combined type F90.2 [facility] [address] [facility] [id number] [address] [place] [address] Mar, Attention deficit hyperactiv ity disorder (ADHD), combined type F90.2 [facility] [address] [facility] [id number] [address] [place] [address] Mar, Attention deficit hyperactiv ity disorder (ADHD), combined type F90.2 [facility] [address] [facility] [id number] [address] [place] [address] Mar, Attention deficit hyperactiv ity disorder (ADHD), combined type F90.2 and High risk medication use Z79.899 [facility] [address] [place] [id number] [place] [address] Mar, Gastroenteritis K52.9 [facility] [address] [place] [id number] [address] [place] [address] Feb, Attention deficit hyperactiv ity disorder (ADHD), combined type F90.2 [facility] [address] [place] [id number] [address] [place] [phone] 05 Jan, 2018 Attention deficit hyperactiv ity disorder (ADHD), combined type F90.2 and High risk medication use Z79.899 [place] [address] [place], [place] [id number] 13 Sep, 2017 Acute cystitis without hematuria N30.00 and Acute suppurative otitis media of left ear with spontaneous rupture of tympanic membrane, recurrence not specified H66.012 [place] [address] [place], [place] [id number] Jul, Seborrheic keratoses L82.1 and Mood disorder F39 [place] [address] [place], [place] [id number] 57 Jul, Attention deficit hyperactivity disorder (ADHD), predominantly inattentive type F90.0 [facility] [address] [place], [place] [id number] 57 Jul, Mood disorder F39 [facility] [address] [facility] [id number] [address] [place] [address] Sep, [facility] [address] [facility] [id number] [address] [place] [address] Aug, [facility] [address] [facility] [id number] [address] [place] [address] Jul, [facility] [address] [facility] [id number] [address] [place] [address] Jul, [facility] [address] [facility] [id number] [address] [place] [address] Jun, Attention deficit hyperactiv ity disorder (ADHD), combined type F90.2 [facility] [address] [facility] [id number] [address] [place] [address] May, [facility] [address] [facility] [id number] [address] [place] [address] Apr, Attention deficit hyperactiv ity disorder (ADHD), combined type F90.2 [facility] [address] [facility] [id number] [address] [place] [address] Mar, Acute non-recurrent maxillar y sinusitis J01.00 [facility] [address] [facility] [id number] [address] [place] [address] Mar, Acute non-recurrent maxillar y sinusitis J01.00 [facility] [address] [facility] [id number] [address] [place] [address] Mar, [facility] [address] [facility] [id number] [address] [place] [address] Feb, Gastroenteritis K52.9 [facility] [address] [facility] [id number] [address] [place] [address] Feb, [facility] [address] [id number] [address] [place] [address] Jan, [facility] [address] [facility] [id number] [address] [place] [address] December, [facility] [address] [facility] [id number] [address] [place] [address] December, Rash R21 [facility] [address] [facility] [id number] [address] [place] [address] Nov, [facility] [address] [id number] [address] [place] [address] Nov, [facility] [address] [facility] [id number] [address] [place] [address] Oct, [facility] [address] [facility] [id number] [address] [place] [address] Oct, Attention deficit hyperactiv ity disorder (ADHD), combined type F90.2 [facility] [address] [facility] [id number] [address] [place] [address] Sep, [facility] [address] [facility] [id number] [address] [place] [address] Sep, Viral syndrome B34.9 and HSV (herpes simplex virus) infection B00.9 [facility] [address] [facility] [id number] [address] [place] [address] Aug, [facility] [address] [facility] [id number] [address] [place] [phone] Aug, [facility] [address] [facility] [id number] [address] [place] [address] Jul, [facility] [address] [facility] [id number] [address] [place] [address] Jun, Gastroenteritis K52.9 [facility] [address] [facility] [id number] [address] [place] [address] Jun, [facility] [address] [facility] [id number] [address] [place] [address] Jun, Attention deficit hyperactiv ity disorder (ADHD), combined type F90.2 [facility] [address] [facility] [id number] [address] [place] [address] Jun, [facility] [address] [facility] [id number] [address] [place] [address] May, 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 [facility] [address] [facility] [id number] [address] [place] [address] May, [facility] [address] [facility] [id number] [address] [place] [address] Apr, [facility] [address] [facility] [id number] [address] [place] [address] Mar, [facility] [address] [facility] [id number] [address] [place] [address] Feb, [facility] [address] [facility] [id number] [address] [place] [address] Jan, Poison janneth 692.6 [facility] [address] [place] [id number] [place] [address] Jan, Attention deficit disorder ( ADD) 314.00 [facility] [address] [facility] [id number] [address] [place] [address] Jan, [facility] [address] [facility] [id number] [address] [place] [address] Jan, Poison janneth dermatitis 692.6 [facility] [address] [facility] [id number] [address] [place] [address] December, [facility] [address] [facility] [id number] [address] [place] [address] Nov, [facility] [address] [facility] [id number] [address] [place] [address] Nov, [facility] [address] [id number] [address] [place] [address], [place] [address] 13 Oct, 2014 [facility] [address] [id number] [address] [place] [address], [place] [address] 13 Oct, 2014 [facility] [address] [id number] [address] [place] [address], [place] [address] Oct, [facility] [address] [id number] [address] [place] [address], [place] [address] Oct, [facility] [address] [id number] [address] [place] [address], [place] [address] Oct, [facility] [address] [id number] [address] [place] [address], [place] [address] 05 Oct, 2014 [facility] [address] [id number] [address] [place] [address], [place] [address] Oct, [facility] [address] [id number] [address] [place] [address], [place] [address] Oct, [facility] [address] [id number] [address] [place] [address], [place] [address] Sep, [facility] [address] [id number] [address] [place] [address], [place] [address] Sep, [facility] [address] [id number] [address] [place] [address], [place] [address] Aug, [facility] [address] [id number] [address] [place] [address], [place] [address] Aug, [facility] [address] [id number] [address] [place] [address], [place] [address] Aug, [facility] [address] [id number] [address] [place] [address], [place] [address] Aug, [facility] [address] [id number] [address] [place] [address], [place] [address] Aug, [facility] [address] [id number] [address] [place] [address], [place] [address] Aug, [facility] [address] [id number] [address] [place] [address], [place] [address] Jul, [facility] [address] [id number] [address] [place] [address], [place] [address] Jul, [facility] [address] [id number] [address] [place] [address], [place] [address] Jun, [facility] [address] [id number] [address] [place] [address], [place] [address] Jun, [facility] [address] [id number] [address] [place] [address], [place] [address] Jun, [facility] [address] [id number] [address] [place] [address], [place] [address] Jun, [facility] [address] [id number] [address] [place] [address], [place] [address] May, [facility] [address] [id number] [address] [place] [address], [place] [address] May, [facility] [address] [id number] [address] [place] [address], [place] [address] Apr, [facility] [address] [id number] [address] [place] [address], [place] [address] Apr, [facility] [address] [id number] [address] [place] [address], [place] [address] Mar, [facility] [address] [id number] [address] [place] [address], [place] [address] Mar, [facility] [address] [id number] [address] [place] [address], [place] [address] Feb, [facility] [address] [id number] [address] [place] [address], [place] [address] Feb, [facility] [address] [id number] [address] [place] [address], [place] [address] Feb, [facility] [address] [id number] [address] [place] [address], [place] [address] Feb, [facility] [address] [id number] [address] [place] [address], [place] [address] Jan, [facility] [address] [id number] [address] [place] [address], [place] [address] Jan, [facility] [address] [id number] [address] [place] [address], [place] [address] Jan, [facility] [address] [id number] [address] [place] [address], [place] [address] Jan, [facility] [address] [id number] [address] [place] [address], [place] [address] December, [facility] [address] [id number] [address] [place] [address], [place] [address] December, [facility] [address] [id number] [address] [place] [address], [place] [address] December, [facility] [address] [id number] [address] [place] [address], [place] [address] December, [facility] [address] [id number] [address] [place] [address], [place] [address] Nov, [facility] [address] [id number] [address] [place] [address], [place] [address] Nov, [facility] [address] [id number] [address] [place] [address], [place] [address] Oct, [facility] [address] [id number] [address] [place] [address], [place] [address] Oct, [facility] [address] [id number] [address] [place] [address], [place] [address] Sep, [facility] [address] [id number] [address] [place] [address], [place] [address] Sep, [facility] [address] [id number] [address] [place] [address], [place] [address] Aug, [facility] [address] [id number] [address] [place] [address], [place] [address] Aug, [facility] [address] [id number] [address] [place] [address], [place] [address] Jul, [facility] [address] [id number] [address] [place] [address], [place] [address] Jul, [facility] [address] [id number] [address] [place] [address], [place] [address] Jun, [facility] [address] [id number] [address] [place] [address], [place] [address] Jun, [facility] [address] [id number] [address] [place] [address], [place] [address] Jun, [facility] [address] [id number] [address] [place] [address], [place] [address] Jun, [facility] [address] [id number] [address] [place] [address], [place] [address] May, [facility] [address] [id number] [address] [place] [address], [place] [address] May, [facility] [address] [id number] [address] [place] [address], [place] [address] May, [facility] [address] [id number] [address] [place] [address], [place] [address] Apr, [facility] [address] [id number] [address] [place] [address], [place] [address] Mar, [facility] [address] [id number] [address] [place] [address], [place] [address] Mar, [facility] [address] [id number] [address] [place] [address], [place] [address] Mar, [facility] [address] [id number] [address] [place] [address], [place] [address] Mar, [facility] [address] [id number] [address] [place] [address], [place] [address] Feb, [facility] [address] [id number] [address] [place] [address], [place] [address] Feb, [facility] [address] [id number] [address] [place] [address], [place] [address] Feb, [facility] [address] [id number] [address] [place] [address], [place] [address] Jan, [facility] [address] [id number] [address] [place] [address], [place] [address] Jan, [facility] [address] [id number] [address] [place] [address], [place] [address] December, [facility] [address] [id number] [address] [place] [address], [place] [address] Nov, [facility] [address] [id number] [address] [place] [address], [place] [address] Nov, [facility] [address] [id number] [address] [place] [address], [place] [address] Oct, [facility] [address] [id number] [address] [place] [address], [place] [address] Oct, [facility] [address] [id number] [address] [place] [address], [place] [address] Oct, [facility] [address] [id number] [address] [place] [address], [place] [address] Sep, [facility] [address] [id number] [address] [place] [address], [place] [address] Sep, [facility] [address] [id number] [address] [place] [address], [place] [address] Aug, [facility] [address] [id number] [address] [place] [address], [place] [address] Jun, [facility] [address] [id number] [address] [place] [address], [place] [address] Jun, [facility] [address] [id number] [address] [place] [address], [place] [address] Jun, [facility] [address] [id number] [address] [place] [address], [place] [address] Jun, [facility] [address] [id number] [address] [place] [address], [place] [address] Jun, [facility] [address] [id number] [address] [place] [address], [place] [address] Jun, [facility] [address] [id number] [address] [place] [address], [place] [address] Jun, [facility] [address] [id number] [address] [place] [address], [place] [address] Jun, [facility] [address] [id number] [address] [place] [address], [place] [address] May, [facility] [address] [id number] [address] [place] [address], [place] [address] May, [facility] [address] [id number] [address] [place] [address], [place] [address] May, [facility] [address] [id number] [address] [place] [address], [place] [address] May, [facility] [address] [id number] [address] [place] [address], [place] [address] May, [facility] [address] [id number] [address] [place] [address], [place] [address] May, [facility] [address] [id number] [address] [place] [address], [place] [address] Apr, [facility] [address] [id number] [address] [place] [address], [place] [address] Apr, [facility] [address] [id number] [address] [place] [address], [place] [address] Mar, [facility] [address] [id number] [address] [place] [address], [place] [address] Feb, [facility] [address] [id number] [address] [place] [address], [place] [address] Jan, [facility] [address] [id number] [address] [place] [address], [place] [address] December, [facility] [address] [id number] [address] [place] [address], [place] [address] Nov, [facility] [address] [id number] [address] [place] [address], [place] [address] Oct, [facility] [address] [id number] [address] [place] [address], [place] [address] Oct, [facility] [address] [id number] [address] [place] [address], [place] [address] Aug, [facility] [address] [id number] [address] [place] [address], [place] [address] Jul, [facility] [address] [id number] [address] [place] [address], [place] [address] Jun, [facility] [address] [id number] [address] [place] [address], [place] [address] Jun, [facility] [address] [id number] [address] [place] [address], [place] [address] May, [facility] [address] [id number] [address] [place] [address], [place] [address] May, [facility] [address] [id number] [address] [place] [address], [place] [address] Aug, [facility] [address] [id number] [address] [place] [address], [place] [address] 29 Jul, 2010 [facility] [address] [id number] [address] [place] [address], [place] [address] Jul, [facility] [address] [id number] [address] [place] [address], [place] [address] 17 Jun, 2010 [facility] [address] [id number] [address] [place] [phone] 17 Jun, 2010 [facility] [address] [facility] [id number] [address] [place] [phone] Jun, [facility] [address] [facility] [id number] [address] [place] [phone] Jun, [facility] [address] [facility] [id number] [address] [place] [address] Jun, [facility] [address] [facility] [id number] [address] [place] [phone] May, [facility] [address] [facility] [id number] [address] [place] [phone] May, [facility] [address] [facility] [id number] [address] [place] [phone] May, IMMUNIZATIONS No Known Immunizations SOCIAL HISTORY Never Assessed REASON FOR VISIT [facility]MR-[facility] PLAN OF CARE VITAL SIGNS MEDICATIONS Unknown Medications RESULTS No Results PROCEDURES No Known procedures INSTRUCTIONS MEDICATIONS ADMINISTERED No Known Medications MEDICAL (GENERAL) HISTORY Type Description Date Medical History attention deficit hyperactivity disorder Surgical History No Surgical history information Hospitalization History [facility] P[facility] 04/2016
--- OUTSIDE RECORDS SUMMARY | 2020-02-16 14:17 | XMS REPORT ---
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 Name Role Phone Migration, Doctor Unavailable Unavailable PROBLEMS Type Condition ICD9-CM Code PGH04-YS Code Onset Dates Condition S tatus SNOMED Code Problem Attention deficit hyperactiv ity disorder (ADHD), predominantly inattentive type F90.0 Active 13886149 Problem Adjustment disorder with anxiety F43.22 Active 16196868 Problem Attention deficit hyperactivity disorder (ADHD), combi david type F90.2 Active [id number] Problem Mood disorder F39 Active 236930 05 ALLERGIES No Information ENCOUNTERS Encounter Location Date Diagnosis [place] [address] [place] [id number] [place] [phone] Jan, [place] [address] [place] [id number] [place] [phone] Aug, Blood in stool K92.1 and His tory of hemorrhoids Z87.19 [place] [address] [place] [id number] [place] [phone] Jul, Attention deficit hyperactiv ity disorder (ADHD), combined type F90.2 [place] [address] [place] [id number] [place] [phone] Jul, Attention deficit hyperactiv ity disorder (ADHD), combined type F90.2 and Adjustment disorder with anxiety F43.22 [facility] [address] [facility] [id number] [address] [place] [phone] Jun, Bloody stools K92.1 and Acut e bilateral low back pain without sciatica M54.5 [facility] [address] [place] [id number] [place] [id number] 08 Jun, 2018 Attention deficit hyperactiv ity disorder (ADHD), combined type F90.2 [place] [address] [place] [id number] [place] [id number] 15 May, 2018 Attention deficit hyperactiv ity disorder (ADHD), combined type F90.2 [facility] [address] [facility] [id number] [address] [place] [phone] 10 Apr, 2018 Attention deficit hyperactiv ity disorder (ADHD), combined type F90.2 [facility] [address] [facility] [id number] [address] [place] [phone] Mar, Attention deficit hyperactiv ity disorder (ADHD), combined type F90.2 [facility] [address] [facility] [id number] [address] [place] [phone] Mar, Attention deficit hyperactiv ity disorder (ADHD), combined type F90.2 [facility] [address] [facility] [id number] [address] [place] [phone] Mar, Attention deficit hyperactiv ity disorder (ADHD), combined type F90.2 and High risk medication use Z79.899 [facility] [address] [place] [id number] [place] [phone] Mar, Gastroenteritis K52.9 [facility] [address] [place] [id number] [place] [phone] Feb, Attention deficit hyperactiv ity disorder (ADHD), combined type F90.2 [facility] [address] [place] [id number] [place] [id number] 05 Jan, 2018 Attention deficit hyperactiv ity disorder (ADHD), combined type F90.2 and High risk medication use Z79.899 [place] [address] [place], [place] [id number] 13 Sep, 2017 Acute cystitis without hematuria N30.00 and Acute suppurative otitis media of left ear with spontaneous rupture of tympanic membrane, recurrence not specified H66.012 [place] [address] [place], [place] [id number] Jul, Seborrheic keratoses L82.1 and Mood disorder F39 [place] [address] [place], [place] [id number] Jul, Attention deficit hyperactivity disorder (ADHD), predominantly inattentive type F90.0 [facility] [address] [place], [place] [id number] 57 Jul, Mood disorder F39 [facility] [address] [facility] [id number] [address] [place] [phone] Sep, [facility] [address] [facility] [id number] [address] [place] [phone] Aug, [facility] [address] [facility] [id number] [address] [place] [phone] Jul, [facility] [address] [facility] [id number] [address] [place] [phone] Jul, [facility] [address] [facility] [id number] [address] [place] [phone] Jun, Attention deficit hyperactiv ity disorder (ADHD), combined type F90.2 [facility] [address] [facility] [id number] [address] [place] [phone] May, [facility] [address] [facility] [id number] [address] [place] [phone] Apr, Attention deficit hyperactiv ity disorder (ADHD), combined type F90.2 [facility] [address] [facility] [id number] [address] [place] [phone] Mar, Acute non-recurrent maxillar y sinusitis J01.00 [facility] [address] [facility] [id number] [address] [place] [phone] Mar, Acute non-recurrent maxillar y sinusitis J01.00 [facility] [address] [facility] [id number] [address] [place] [phone] Mar, [facility] [address] [facility] [id number] [address] [place] [phone] Feb, Gastroenteritis K52.9 [facility] [address] [facility] [id number] [address] [place] [phone] Feb, [facility] [address] [id number] [address] [place] [phone] Jan, [facility] [address] [facility] [id number] [address] [place] [phone] December, [facility] [address] [facility] [id number] [address] [place] [phone] December, Rash R21 [facility] [address] [facility] [id number] [address] [place] [phone] Nov, [facility] [address] [id number] [address] [place] [phone] Nov, [facility] [address] [facility] [id number] [address] [place] [phone] Oct, [facility] [address] [facility] [id number] [address] [place] [phone] Oct, Attention deficit hyperactiv ity disorder (ADHD), combined type F90.2 [facility] [address] [facility] [id number] [address] [place] [phone] Sep, [facility] [address] [facility] [id number] [address] [place] [phone] Sep, Viral syndrome B34.9 and HSV (herpes simplex virus) infection B00.9 [facility] [address] [facility] [id number] [address] [place] [phone] Aug, [facility] [address] [facility] [id number] [address] [place] [phone] Aug, [facility] [address] [facility] [id number] [address] [place] [phone] Jul, [facility] [address] [facility] [id number] [address] [place] [phone] Jun, Gastroenteritis K52.9 [facility] [address] [facility] [id number] [address] [place] [phone] Jun, [facility] [address] [facility] [id number] [address] [place] [phone] Jun, Attention deficit hyperactiv ity disorder (ADHD), combined type F90.2 [facility] [address] [facility] [id number] [address] [place] [phone] Jun, [facility] [address] 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 [id number] [address] [place] [phone] May, [facility] [address] [facility] [id number] [address] [place] [phone] Apr, [facility] [address] [facility] [id number] [address] [place] [id number] Mar, [facility] [address] [facility] [id number] [address] [place] [phone] Feb, [facility] [address] [facility] [id number] [address] [place] [phone] Jan, Poison janneth 692.6 [facility] [address] [place] [id number] [place] [phone] Jan, Attention deficit disorder ( ADD) 314.00 [facility] [address] [facility] [id number] [address] [place] [phone] Jan, [facility] [address] [facility] [id number] [address] [place] [phone] Jan, Poison janneth dermatitis 692.6 [facility] [address] [facility] [id number] [address] [place] [phone] December, [facility] [address] [facility] [id number] [address] [place] [phone] Nov, [facility] [address] [facility] [id number] [address] [place] [phone] Nov, [facility] [address] [id number] [address] [place] [address], [place] [id number] 13 Oct, 2014 [facility] [address] [id number] [address] [place] [place] [address], [place] [phone] 13 Oct, 2014 [facility] [address] [id number] [address] [place] [place] [address], [place] [phone] Oct, [facility] [address] [id number] [address] [place] [place] [address], [place] [phone] Oct, [facility] [address] [id number] [address] [place] [place] [address], [place] [phone] Oct, [facility] [address] [id number] [address] [place] [place] [address], [place] [id number] 05 Oct, 2014 [facility] [address] [id number] [address] [place] [address], [place] [id number] Oct, [facility] [address] [id number] [address] [place] [address], [place] [phone] Oct, [facility] [address] [id number] [address] [place] [address], [place] [phone] Sep, [facility] [address] [id number] [address] [place] [address], [place] [phone] Sep, [facility] [address] [id number] [address] [place] [address], [place] [phone] Aug, [facility] [address] [id number] [address] [place] [address], [place] [phone] Aug, [facility] [address] [id number] [address] [place] [address], [place] [phone] Aug, [facility] [address] [id number] [address] [place] [address], [place] [id number] Aug, [facility] [address] [id number] [address] [place] [address], [place] [phone] Aug, [facility] [address] [id number] [address] [place] [address], [place] [id number] Aug, [facility] [address] [id number] [address] [place] [address], [place] [address] Jul, [facility] [address] [id number] [address] [place] [address], [place] [phone] Jul, [facility] [address] [id number] [address] [place] [address], [place] [id number] Jun, [facility] [address] [id number] [address] [place] [address], [place] [id number] Jun, [facility] [address] [id number] [address] [place] [address], [place] [id number] Jun, [facility] [address] [id number] [address] [place] [address], [place] [id number] Jun, [facility] [address] [id number] [address] [place] [address], [place] [id number] May, [facility] [address] [id number] [address] [place] [address], [place] [phone] May, [facility] [address] [id number] [address] [place] [address], [place] [id number] Apr, [facility] [address] [id number] [address] [place] [address], [place] [id number] Apr, [facility] [address] [id number] [address] [place] [address], [place] [id number] Mar, [facility] [address] [id number] [address] [place] [address], [place] [address] Mar, [facility] [address] [id number] [address] [place] [address], [place] [id number] Feb, [facility] [address] [id number] [address] [place] [address], [place] [id number] Feb, [facility] [address] [id number] [address] [place] [address], [place] [address] Feb, [facility] [address] [id number] [address] [place] [address], [place] [id number] Feb, [facility] [address] [id number] [address] [place] [address], [place] [address] Jan, [facility] [address] [id number] [address] [place] [address], [place] [id number] Jan, [facility] [address] [id number] [address] [place] [address], [place] [address] Jan, [facility] [address] [id number] [address] [place] [address], [place] [address] Jan, [facility] [address] [id number] [address] [place] [place] [address], [place] [phone] December, [facility] [address] [id number] [address] [place] [address], [place] [id number] December, [facility] [address] [id number] [address] [place] [address], [place] [address] December, [facility] [address] [id number] [address] [place] [address], [place] [id number] December, [facility] [address] [id number] [address] [place] [address], [place] [address] Nov, [facility] [address] [id number] [address] [place] [address], [place] [address] Nov, [facility] [address] [id number] [address] [place] [address], [place] [address] Oct, [facility] [address] [id number] [address] [place] [address], [place] [address] Oct, [facility] [address] [id number] [address] [place] [address], [place] [id number] Sep, [facility] [address] [id number] [address] [place] [address], [place] [id number] Sep, [facility] [address] [id number] [address] [place] [address], [place] [address] Aug, [facility] [address] [id number] [address] [place] [address], [place] [address] Aug, [facility] [address] [id number] [address] [place] [address], [place] [address] Jul, [facility] [address] [id number] [address] [place] [address], [place] [address] Jul, [facility] [address] [id number] [address] [place] [address], [place] [address] Jun, [facility] [address] [id number] [address] [place] [address], [place] [address] Jun, [facility] [address] [id number] [address] [place] [address], [place] [id number] Jun, [facility] [address] [id number] [address] [place] [address], [place] [address] Jun, [facility] [address] [id number] [address] [place] [address], [place] [address] May, [facility] [address] [id number] [address] [place] [address], [place] [address] May, [facility] [address] [id number] [address] [place] [address], [place] [phone] May, [facility] [address] [id number] [address] [place] [address], [place] [address] Apr, [facility] [address] [id number] [address] [place] [address], [place] [address] Mar, [facility] [address] [id number] [address] [place] [address], [place] [address] Mar, [facility] [address] [id number] [address] [place] [address], [place] [address] Mar, [facility] [address] [id number] [address] [place] [address], [place] [address] Mar, [facility] [address] [id number] [address] [place] [address], [place] [id number] Feb, [facility] [address] [id number] [address] [place] [address], [place] [address] Feb, [facility] [address] [id number] [address] [place] [address], [place] [id number] Feb, [facility] [address] [id number] [address] [place] [address], [place] [address] Jan, [facility] [address] [id number] [address] [place] [address], [place] [address] Jan, [facility] [address] [id number] [address] [place] [address], [place] [id number] December, [facility] [address] [id number] [address] [place] [address], [place] [address] Nov, [facility] [address] [id number] [address] [place] [address], [place] [address] Nov, [facility] [address] [id number] [address] [place] [address], [place] [id number] Oct, [facility] [address] [id number] [address] [place] [address], [place] [phone] Oct, [facility] [address] [id number] [address] [place] [address], [place] [id number] Oct, [facility] [address] [id number] [address] [place] [address], [place] [id number] Sep, [facility] [address] [id number] [address] [place] [address], [place] [id number] Sep, [facility] [address] [id number] [address] [place] [address], [place] [id number] Aug, [facility] [address] [id number] [address] [place] [address], [place] [id number] Jun, [facility] [address] [id number] [address] [place] [address], [place] [id number] Jun, [facility] [address] [id number] [address] [place] [address], [place] [id number] Jun, [facility] [address] [id number] [address] [place] [address], [place] [id number] Jun, [facility] [address] [id number] [address] [place] [address], [place] [id number] Jun, [facility] [address] [id number] [address] [place] [address], [place] [id number] Jun, [facility] [address] [id number] [address] [place] [address], [place] [id number] Jun, [facility] [address] [id number] [address] [place] [address], [place] [id number] Jun, [facility] [address] [id number] [address] [place] [address], [place] [id number] May, [facility] [address] [id number] [address] [place] [address], [place] [id number] May, [facility] [address] [id number] [address] [place] [address], [place] [id number] May, [facility] [address] [id number] [address] [place] [address], [place] [id number] May, [facility] [address] [id number] [address] [place] [address], [place] [id number] May, [facility] [address] [id number] [address] [place] [address], [place] [id number] May, [facility] [address] [id number] [address] [place] [address], [place] [id number] Apr, [facility] [address] [id number] [address] [place] [address], [place] [id number] Apr, [facility] [address] [id number] [address] [place] [address], [place] [id number] Mar, [facility] [address] [id number] [address] [place] [address], [place] [id number] Feb, [facility] [address] [id number] [address] [place] [address], [place] [id number] Jan, [facility] [address] [id number] [address] [place] [address], [place] [id number] December, [facility] [address] [id number] [address] [place] [address], [place] [id number] Nov, [facility] [address] [id number] [address] [place] [address], [place] [id number] Oct, [facility] [address] [id number] [address] [place] [address], [place] [id number] Oct, [facility] [address] [id number] [address] [place] [address], [place] [id number] Aug, [facility] [address] [id number] [address] [place] [address], [place] [id number] Jul, [facility] [address] [id number] 50 [place] [address], [place] [id number] Jun, [facility] [address] [id number] [address] [place] [address], [place] [id number] Jun, [facility] [address] [id number] [address] [place] [address], [place] [id number] May, [facility] [address] [id number] [address] [place] [address], [place] [id number] May, [facility] [address] [id number] [address] [place] [address], [place] [id number] Aug, [facility] [address] [id number] [address] [place] [address], [place] [id number] 29 Jul, 2010 [facility] [address] [id number] [address] [place] [address], [place] [id number] Jul, [facility] [address] [id number] [address] [place] [address], [place] [id number] 17 Jun, 2010 [facility] [address] [id number] [address] [place] [id number] 17 Jun, 2010 [facility] [address] [facility] [id number] [address] [place] [phone] Jun, [facility] [address] [facility] [id number] [address] [place] [id number] Jun, [facility] [address] [facility] [id number] [address] [place] [phone] Jun, [facility] [address] [facility] [id number] [address] [place] [id number] May, [facility] [address] [facility] [id number] [address] [place] [id number] May, [facility] [address] [facility] [id number] [address] [place] [phone] May, IMMUNIZATIONS No Known Immunizations SOCIAL HISTORY Never Assessed REASON FOR VISIT [facility]MR[place] [place] CARE VITAL SIGNS MEDICATIONS Unknown Medications RESULTS No Results PROCEDURES No Known procedures INSTRUCTIONS MEDICATIONS ADMINISTERED No Known Medications MEDICAL (GENERAL) HISTORY Type Description Date Medical History attention deficit hyperactivity disorder Surgical History No Surgical history information Hospitalization History [facility] Pneumonia 04/2016
--- OUTSIDE RECORDS SUMMARY | 2020-02-16 14:17 | XMS REPORT ---
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 Name Role Phone ANETA COX Unavailable PROBLEMS Type Condition ICD9-CM Code PHL22-ZA Code Onset Dates Condition S tatus SNOMED Code Problem Attention deficit hyperactiv ity disorder (ADHD), predominantly inattentive type F90.0 Active 12337663 Problem Adjustment disorder with anxiety F43.22 Active 27255867 Problem Attention deficit hyperactivity disorder (ADHD), combi david type F90.2 Active 891833990 Problem Mood disorder F39 Active 887080 05 ALLERGIES No Information ENCOUNTERS Encounter Location Date Diagnosis [place] [id number] [place] [id number] [address] [place] [address] Feb, [place] [address] [place] [id number] [address] [place] [address] Feb, [place] [address] [facility] [id number] [address] [place] [address] Jan, Adjustment disorder with anx iety F43.22 [place] [address] [facility] [id number] [address] [place] [address] Aug, Blood in stool K92.1 and His tory of hemorrhoids Z87.19 [facility] [address] [facility] [id number] [address] [place] [address] Jul, Attention deficit hyperactiv ity disorder (ADHD), combined type F90.2 [facility] [address] [facility] [id number] [address] [place] [address] Jul, Attention deficit hyperactiv ity disorder (ADHD), combined type F90.2 and Adjustment disorder with anxiety F43.22 [place] [address] [place] [id number] [address] [place] [address] Jun, Bloody stools K92.1 and Acut e bilateral low back pain without sciatica M54.5 [facility] [address] [place] [id number] [address] [place] [address] 08 Jun, 2018 Attention deficit hyperactiv ity disorder (ADHD), combined type F90.2 [facility] [address] [place] [id number] [address] [place] [address] 15 May, 2018 Attention deficit hyperactiv ity disorder (ADHD), combined type F90.2 [facility] [address] [place] [id number] [address] [place] [address] Apr, Attention deficit hyperactiv ity disorder (ADHD), combined type F90.2 [facility] [address] [place] [id number] [place] [address] Mar, Attention deficit hyperactiv ity disorder (ADHD), combined type F90.2 [facility] [address] [place] [id number] [address] [place] [address] Mar, Attention deficit hyperactiv ity disorder (ADHD), combined type F90.2 [facility] [address] [place] [id number] [place] [address] Mar, Attention deficit hyperactiv ity disorder (ADHD), combined type F90.2 and High risk medication use Z79.899 [facility] [id number] [place] [address] Mar, Gastroenteritis K52.9 [facility] [address] [place] [id number] [address] [place] [address] Feb, Attention deficit hyperactiv ity disorder (ADHD), combined type F90.2 [facility] [address] [place] [id number] [address] [place] [address] 05 Jan, 2018 Attention deficit hyperactiv ity disorder (ADHD), combined type F90.2 and High risk medication use Z79.899 [facility] [address] [place], [place] [id number] 57 13 Sep, 2017 Acute cystitis without hematuria N30.00 and Acute suppurative otitis media of left ear with spontaneous rupture of tympanic membrane, recurrence not specified H66.012 [place] [address] [place] [id number] 57 Jul, Seborrheic keratoses L82.1 and Mood disorder F39 [place] [address] [place] [id number] 57 Jul, Attention deficit hyperactivity disorder (ADHD), predominantly inattentive type F90.0 [place] [address] [place] [address] 57 Jul, Mood disorder F39 [facility] [address] [facility] [id number] [address] [place] [address] Sep, [facility] [address] [facility] [id number] [address] [place] [address] Aug, [facility] [address] [facility] [id number] [address] [place] [address] Jul, [facility] [address] [id number] [address] [place] [address] Jul, [facility] [address] [facility] [id number] [address] [place] [address] Jun, Attention deficit hyperactiv ity disorder (ADHD), combined type F90.2 [facility] [address] [facility] [id number] [address] [place] [address] May, [facility] [address] [facility] [id number] [address] [place] [address] Apr, Attention deficit hyperactiv ity disorder (ADHD), combined type F90.2 [facility] [address] [facility] [id number] [address] [place] [address] Mar, Acute non-recurrent maxillar y sinusitis J01.00 [facility] [address] [facility] [id number] [address] [place] [address] Mar, Acute non-recurrent maxillar y sinusitis J01.00 [facility] [address] [id number] [address] [place] [address], [place] [address] Mar, [facility] [address] [id number] [address] [place] [address], [place] [address] Feb, Gastroenteritis K52.9 [facility] [address] [id number] [address] [place] [address], [place] [address] Feb, [facility] [address] [id number] [address] [place] [address] Jan, [facility] [address] [id number] [address] [place] [address], [place] [address] December, [facility] [address] [id number] [address] [place] [address], [place] [address] December, Rash R21 [facility] [address] [facility] [id number] [address] [place] [address], [place] [address] Nov, [facility] [address] [facility] [id number] [address] [place] [address] Nov, [facility] [address] [facility] [id number] [address] [place] [address] Oct, [facility] [address] [facility] [id number] [address] [place] [address] Oct, Attention deficit hyperactiv ity disorder (ADHD), combined type F90.2 [facility] [address] [facility] [id number] [address] [place] [address] Sep, [facility] [address] [facility] [id number] [address] [place] [address] Sep, Viral syndrome B34.9 and HSV (herpes simplex virus) infection B00.9 [facility] [address] [facility] [id number] [address] [place] [address] Aug, [facility] [address] [facility] [id number] [address] [place] [address] Aug, [facility] [address] [facility] [id number] [address] [place] [address] Jul, [facility] [address] [facility] [id number] [address] [place] [address] Jun, Gastroenteritis K52.9 [facility] [address] [place] [id number] [address] [place] [address] Jun, [facility] [address] [address] Jun, Attention deficit hyperactiv ity disorder (ADHD), combined type F90.2 [facility] [address] [place] [id number] [address] [place] [address] Jun, [facility] [address] [place] [id number] [place] [address] May, 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 [facility] [address] [place] [id number] [address] [place] [address] May, [facility] [address] [place] [id number] [address] [place] [address] Apr, [facility] [address] [address] Mar, [facility] [address] [place] [id number] [address] [place] [address] Feb, [facility] [address] [place] [id number] [address] [place] [address] Jan, Poison janneth 692.6 [facility] [address] [place] [id number] [address] [place] [address] Jan, Attention deficit disorder ( ADD) 314.00 [facility] [address] [place] [id number] [address] [place] [address] Jan, [facility] [address] [place] [id number] [address] [place] [address] Jan, Poison janneth dermatitis 692.6 [facility] [address] [id number] [address] [place] [address], [place] [address] 14 Dec, 2014 [facility] [address] [id number] [address] [place] [address], [place] [address] 14 Nov, 2014 [facility] [address] [id number] [address] [place] [address], [place] [address] 13 Nov, 2014 [facility] [address] [id number] [address] [place] [address], [place] [address] 13 Oct, 2014 [facility] [address] [id number] [address] [place] [address], [place] [address] 13 Oct, 2014 [facility] [address] [id number] [address] [place] [address], [place] [address] Oct, [facility] [address] [id number] [address] [place] [address], [place] [address] Oct, [facility] [address] [id number] [address] [place] [address], [place] [address] 05 Oct, 2014 [facility] [address] [id number] [address] [place] [address], [place] [address] 05 Oct, 2014 [facility] [address] [id number] [address] [place] [address], [place] [address] Oct, [facility] [address] [id number] [address] [place] [address], [place] [address] Oct, [facility] [address] [id number] [address] [place] [address], [place] [address] Sep, [facility] [address] [id number] [address] [place] [address], [place] [address] Sep, [facility] [address] [id number] [address] [place] [address], [place] [address] Aug, [facility] [address] [id number] [address] [place] [address], [place] [address] Aug, [facility] [address] [id number] [address] [place] [address], [place] [address] Aug, [facility] [address] [id number] [address] [place] [address], [place] [address] Aug, [facility] [address] [id number] [address] [place] [address], [place] [address] Aug, [facility] [address] [id number] [address] [place] [address], [place] [address] Aug, [facility] [address] [id number] [address] [place] [address], [place] [address] Jul, [facility] [address] [id number] [address] [place] [address], [place] [address] Jul, [facility] [address] [id number] [address] [place] [address], [place] [address] Jun, [facility] [address] [id number] [address] [place] [address], [place] [address] Jun, [facility] [address] [id number] [address] [place] [address], [place] [address] Jun, [facility] [address] [id number] [address] [place] [address], [place] [address] Jun, [facility] [address] [id number] [address] [place] [address], [place] [address] May, [facility] [address] [id number] [address] [place] [address], [place] [address] May, [facility] [address] [id number] [address] [place] [address], [place] [address] Apr, [facility] [address] [id number] [address] [place] [address], [place] [address] Apr, [facility] [address] [id number] [address] [place] [address], [place] [address] Mar, [facility] [address] [id number] [address] [place] [address], [place] [address] Mar, [facility] [address] [id number] [address] [place] [address] Feb, [facility] [address] [id number] [address] [place] [address], [place] [address] Feb, [facility] [address] [id number] [address] [place] [address], [place] [address] Feb, [facility] [address] [id number] [address] [place] [address], [place] [address] Feb, [facility] [address] [id number] [address] [place] [address], [place] [address] Jan, [facility] [address] [id number] [address] [place] [address], [place] [address] Jan, [facility] [address] [id number] [address] [place] [address], [place] [address] Jan, [facility] [address] [id number] [address] [place] [address], [place] [address] Jan, [facility] [address] [id number] [address] [place] [address], [place] [address] December, [facility] [address] [id number] [address] [place] [address], [place] [address] December, [facility] [address] [id number] [address] [place] [address], [place] [address] December, [facility] [address] [id number] [address] [place] [address], [place] [address] December, [facility] [address] [id number] [address] [place] [address], [place] [address] Nov, [facility] [address] [id number] [address] [place] [address], [place] [address] Nov, [facility] [address] [id number] [address] [place] [address], [place] [address] Oct, [facility] [address] [id number] [address] [place] [address], [place] [address] Oct, [facility] [address] [id number] [address] [place] [address], [place] [address] Sep, [facility] [address] [id number] [address] [place] [address], [place] [address] Sep, [facility] [address] [id number] [address] [place] [address], [place] [address] Aug, [facility] [address] [id number] [address] [place] [address], [place] [address] Aug, [facility] [address] [id number] [address] [place] [address], [place] [address] Jul, [facility] [address] [id number] [address] [place] [address], [place] [address] Jul, [facility] [address] [id number] [address] [place] [address], [place] [address] Jun, [facility] [address] [id number] [address] [place] [address], [place] [address] Jun, [facility] [address] [id number] [address] [place] [address], [place] [address] Jun, [facility] [address] [id number] [address] [place] [address], [place] [address] Jun, [facility] [address] [id number] [address] [place] [address], [place] [address] May, [facility] [address] [id number] [address] [place] [address], [place] [address] May, [facility] [address] [id number] [address] [place] [address], [place] [address] May, [facility] [address] [id number] [address] [place] [address], [place] [address] 30 Apr, 2013 [facility] [address] [id number] [address] [place] [address], [place] [address] Mar, [facility] [address] [id number] [address] [place] [address], [place] [address] Mar, [facility] [address] [id number] [address] [place] [address], [place] [address] Mar, [facility] [address] [id number] [address] [place] [address], [place] [address] Mar, [facility] [address] [id number] [address] [place] [address], [place] [address] Feb, [facility] [address] [id number] [address] [place] [address], [place] [address] Feb, [facility] [address] [id number] [address] [place] [address], [place] [address] Feb, [facility] [address] [id number] [address] [place] [address], [place] [address] Jan, [facility] [address] [id number] [address] [place] [address], [place] [address] Jan, [facility] [address] [id number] [address] [place] [address], [place] [address] December, [facility] [address] [id number] [address] [place] [address], [place] [address] Nov, [facility] [address] [id number] [address] [place] [address], [place] [address] Nov, [facility] [address] [id number] [address] [place] [address], [place] [address] Oct, [facility] [address] [id number] [address] [place] [address], [place] [address] Oct, [facility] [address] [id number] [address] [place] [address], [place] [address] Oct, [facility] [address] [id number] [address] [place] [address], [place] [address] Sep, [facility] [address] [id number] [address] [place] [address], [place] [address] Sep, [facility] [address] [id number] [address] [place] [address], [place] [address] Aug, [facility] [address] [id number] [address] [place] [address], [place] [address] Jun, [facility] [address] [id number] [address] [place] [address], [place] [address] Jun, [facility] [address] [id number] [address] [place] [address], [place] [address] Jun, [facility] [address] [id number] [address] [place] [address], [place] [address] Jun, [facility] [address] [id number] [address] [place] [address], [place] [address] Jun, [facility] [address] [id number] [address] [place] [address], [place] [address] Jun, [facility] [address] [id number] [address] [place] [address], [place] [address] Jun, [facility] [address] [id number] [address] [place] [address], [place] [address] Jun, [facility] [address] [id number] [address] [place] [address], [place] [address] May, [facility] [address] [id number] [address] [place] [address], [place] [address] May, [facility] [address] [id number] [address] [place] [address], [place] [address] May, [facility] [address] [id number] [address] [place] [address], [place] [address] May, [facility] [address] [id number] [address] [place] [address], [place] [address] May, [facility] [address] [id number] [address] [place] [address], [place] [address] May, [facility] [address] [id number] [address] [place] [address], [place] [address] Apr, [facility] [address] [id number] [address] [place] [address], [place] [address] 06 Apr, 2012 [facility] [address] [id number] [address] [place] [address], [place] [address] Mar, [facility] [address] [id number] [address] [place] [address], [place] [address] Feb, [facility] [address] [id number] [address] [place] [address], [place] [address] Jan, [facility] [address] [id number] [address] [place] [address], [place] [address] December, [facility] [address] [id number] [address] [place] [address], [place] [address] Nov, [facility] [address] [id number] [address] [place] [address], [place] [address] Oct, [facility] [address] [id number] [address] [place] [address], [place] [address] Oct, [facility] [address] [id number] [address] [place] [address], [place] [address] Aug, [facility] [address] [id number] [address] [place] [address], [place] [address] Jul, [facility] [address] [id number] [address] [place] [address], [place] [address] 15 Jun, 2011 [facility] [address] [id number] [address] [place] [id number] 14 Jun, 2011 [facility] [address] [id number] [address] [place] [address], [place] [address] May, [facility] [address] [id number] [address] [place] [address], [place] [address] 31 May, 2011 [facility] [address] [id number] [address] [place] [address], [place] [address] 12 Aug, 2010 [facility] [address] [id number] [address] [place] [id number] Jul, [facility] [address] [id number] [address] [place] [id number] Jul, [facility] [address] [id number] [address] [place] [id number] Jun, [facility] [address] [facility] [id number] [address] [place] [id number] Jun, [facility] [address] [facility] [id number] [address] [place] [id number] Jun, [facility] [address] [facility] [id number] [address] [place] [id number] Jun, [facility] [address] [facility] [id number] [address] [place] [id number] Jun, [facility] [address] [facility] [id number] [address] [place] [id number] May, [facility] [address] [id number] [address] [place] [id number] May, [facility] [address] [facility] [id number] [address] [place] [phone] May, IMMUNIZATIONS No Known Immunizations SOCIAL HISTORY Never Assessed REASON FOR VISIT PLAN OF CARE VITAL SIGNS MEDICATIONS Unknown Medications RESULTS No Results PROCEDURES No Known procedures INSTRUCTIONS MEDICATIONS ADMINISTERED No Known Medications MEDICAL (GENERAL) HISTORY Type Description Date Medical History attention deficit hyperactivity disorder Surgical History No Surgical history information Hospitalization History [facility] P[facility] 04/2016
--- OUTSIDE RECORDS SUMMARY | 2020-02-16 14:17 | XMS REPORT ---
Author Author Andrew Garcia Doctor Organization [facility] Address Unknown Phone Unavailable Care Team Providers Care Accounts Payable Administrator Name Role Phone Migration, Doctor Unavailable Unavailable PROBLEMS Type Condition ICD9-CM Code [id number] Code Onset Dates Condition S tatus SNOMED Code Problem Attention deficit hyperactiv ity disorder (ADHD), predominantly inattentive type F90.0 Active 83858653 Problem Adjustment disorder with anxiety F43.22 Active 47861357 Problem Attention deficit hyperactivity disorder (ADHD), combi david type F90.2 Active [id number] Problem Mood disorder F39 Active 114138 05 ALLERGIES No Information ENCOUNTERS Encounter Location Date Diagnosis [place] [address] [address] Feb, [place] [address] [place] [id number] [place] [address] Jan, [place] [address] [place] [id number] [address] [place] [address] Aug, Blood in stool K92.1 and His tory of hemorrhoids Z87.19 [place] [address] [place] [id number] [place] [address] Jul, Attention deficit hyperactiv ity disorder (ADHD), combined type F90.2 [place] [address] [place] [id number] [address] [place] [address] Jul, Attention deficit hyperactiv ity disorder (ADHD), combined type F90.2 and Adjustment disorder with anxiety F43.22 [place] [address] [place] [id number] [place] [address] Jun, Bloody stools K92.1 and Acut e bilateral low back pain without sciatica M54.5 [place] [address] [place] [id number] [place] [address] Jun, Attention deficit hyperactiv ity disorder (ADHD), combined type F90.2 [facility] [address] [place] [id number] [address] [place] [address] May, Attention deficit hyperactiv ity disorder (ADHD), combined type F90.2 [facility] [address] [place] [id number] [address] [place] [address] Apr, Attention deficit hyperactiv ity disorder (ADHD), combined type F90.2 [facility] [address] [place] [id number] [place] [address] Mar, Attention deficit hyperactiv ity disorder (ADHD), combined type F90.2 [facility] [address] [place] [id number] [address] [place] [address] Mar, Attention deficit hyperactiv ity disorder (ADHD), combined type F90.2 [facility] [address] [place] [id number] [address] [place] [address] Mar, Attention deficit hyperactiv ity disorder (ADHD), combined type F90.2 and High risk medication use Z79.899 [facility] [address] [address] Mar, Gastroenteritis K52.9 [facility] [address] [place] [id number] [place] [address] Feb, Attention deficit hyperactiv ity disorder (ADHD), combined type F90.2 [facility] [address] [place] [id number] [address] [place] [address] 05 Jan, 2018 Attention deficit hyperactiv ity disorder (ADHD), combined type F90.2 and High risk medication use Z79.899 [facility] [address] [place], [place] [id number] 13 Sep, 2017 Acute cystitis without hematuria N30.00 and Acute suppurative otitis media of left ear with spontaneous rupture of tympanic membrane, recurrence not specified H66.012 [facility] [address] [place], [place] [id number] 57 Jul, Seborrheic keratoses L82.1 and Mood disorder F39 [facility] [address] [place], [place] [id number] 57 Jul, Attention deficit hyperactivity disorder (ADHD), predominantly inattentive 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 [facility] [address] [place], [place] [id number] 57 Jul, Mood disorder F39 [facility] [address] [facility] [id number] [address] [place] [address] Sep, [facility] [address] [id number] [address] [place] [address] Aug, [facility] [address] [id number] [address] [place] [address] Jul, [facility] [address] [facility] [id number] [address] [place] [address] Jul, [facility] [address] [facility] [id number] [address] [place] [address] Jun, Attention deficit hyperactiv ity disorder (ADHD), combined type F90.2 [facility] [address] [id number] [address] [place] [address] May, [facility] [address] [facility] [id number] [address] [place] [address] Apr, Attention deficit hyperactiv ity disorder (ADHD), combined type F90.2 [facility] [address] [facility] [id number] [address] [place] [address] Mar, Acute non-recurrent maxillar y sinusitis J01.00 [facility] [address] [id number] [address] [place] [address] Mar, Acute non-recurrent maxillar y sinusitis J01.00 [facility] [address] [facility] [id number] [address] [place] [address] Mar, [facility] [address] [facility] [id number] [address] [place] [address] Feb, Gastroenteritis K52.9 [facility] [address] [id number] [address] [place] [address] Feb, [facility] [address] [facility] [id number] [address] [place] [address] Jan, [facility] [address] [facility] [id number] [address] [place] [address] December, [facility] [address] [facility] [id number] [address] [place] [address] December, Rash R21 [facility] [address] [facility] [id number] [address] [place] [address] Nov, [facility] [address] [facility] [id number] [address] [place] [address] Nov, [facility] [address] [facility] [id number] [address] [place] [address] Oct, [facility] [address] [facility] [id number] [address] [place] [address] Oct, Attention deficit hyperactiv ity disorder (ADHD), combined type F90.2 [facility] [address] [facility] [id number] [address] [place] [address] Sep, [facility] [address] [facility] [id number] [address] [place] [address] Sep, Viral syndrome B34.9 and HSV (herpes simplex virus) infection B00.9 [facility] [address] [facility] [id number] [address] [place] [address] Aug, [facility] [address] [facility] [id number] [address] [place] [address] Aug, [facility] [address] [facility] [id number] [address] [place] [address] Jul, [facility] [address] [facility] [id number] [address] [place] [address] Jun, Gastroenteritis K52.9 [facility] [address] [id number] [address] [place] [address] Jun, [facility] [address] [id number] [address] [place] [address] Jun, Attention deficit hyperactiv ity disorder (ADHD), combined type F90.2 [facility] [address] [facility] [id number] [address] [place] [address] Jun, [facility] [address] [facility] [id number] [address] [place] [address] May, 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 [facility] [address] [facility] [id number] [address] [place] [address] May, [facility] [address] [facility] [id number] [address] [place] [address] Apr, [facility] [address] [facility] [id number] [address] [place] [address] Mar, [facility] [address] [facility] [id number] [address] [place] [address] Feb, [facility] [address] [facility] [id number] [address] [place] [address] Jan, Poison janneth 692.6 [facility] [address] [facility] [id number] [address] [place] [address] Jan, Attention deficit disorder ( ADD) 314.00 [facility] [address] [facility] [id number] [address] [place] [address] Jan, [facility] [address] [facility] [id number] [address] [place] [address] Jan, Poison janneth dermatitis 692.6 [facility] [address] [facility] [id number] [address] [place] [address] December, [facility] [address] [facility] [id number] [address] [place] [address] Nov, [facility] [address] [id number] [address] [place] [address], [place] [address] 13 Nov, 2014 [facility] [address] [id number] [address] [place] [address], [place] [address] 13 Oct, 2014 [facility] [address] [id number] [address] [place] [address], [place] [address] 13 Oct, 2014 [facility] [address] [id number] [address] [place] [address], [place] [address] Oct, [facility] [address] [id number] [address] [place] [address], [place] [address] Oct, [facility] [address] [id number] [address] [place] [address], [place] [address] 05 Oct, 2014 [facility] [address] [id number] [address] [place] [address], [place] [address] Oct, [facility] [address] [id number] [address] [place] [address], [place] [address] Oct, [facility] [address] [id number] [address] [place] [address], [place] [address] Oct, [facility] [address] [id number] [address] [place] [address], [place] [address] Sep, [facility] [address] [id number] [address] [place] [address], [place] [address] Sep, [facility] [address] [id number] [address] [place] [address], [place] [address] Aug, [facility] [address] [id number] [address] [place] [address], [place] [address] Aug, [facility] [address] [id number] [address] [place] [address], [place] [address] Aug, [facility] [address] [id number] [address] [place] [address], [place] [address] Aug, [facility] [address] [id number] [address] [place] [address], [place] [address] Aug, [facility] [address] [id number] [address] [place] [address], [place] [address] Aug, [facility] [address] [id number] [address] [place] [address], [place] [address] Jul, [facility] [address] [id number] [address] [place] [address], [place] [address] Jul, [facility] [address] [id number] [address] [place] [address], [place] [address] Jun, [facility] [address] [id number] [address] [place] [address], [place] [address] Jun, [facility] [address] [id number] [address] [place] [address], [place] [address] Jun, [facility] [address] [id number] [address] [place] [address], [place] [address] Jun, [facility] [address] [id number] [address] [place] [address], [place] [address] May, [facility] [address] [id number] [address] [place] [address], [place] [address] May, [facility] [address] [id number] [address] [place] [address], [place] [address] Apr, [facility] [address] [id number] [address] [place] [address], [place] [address] Apr, [facility] [address] [id number] [address] [place] [address], [place] [address] Mar, [facility] [address] [id number] [address] [place] [address], [place] [address] Mar, [facility] [address] [id number] [address] [place] [address], [place] [address] Feb, [facility] [address] [id number] [address] [place] [address], [place] [address] Feb, [facility] [address] [id number] [address] [place] [address], [place] [address] Feb, [facility] [address] [id number] [address] [place] [address], [place] [address] Feb, [facility] [address] [id number] [address] [place] [address], [place] [address] Jan, [facility] [address] [id number] [address] [place] [address], [place] [address] Jan, [facility] [address] [id number] [address] [place] [address], [place] [address] Jan, [facility] [address] [id number] [address] [place] [address], [place] [address] Jan, [facility] [address] [id number] [address] [place] [address], [place] [address] December, [facility] [address] [id number] [address] [place] [address], [place] [address] December, [facility] [address] [id number] [address] [place] [address], [place] [address] December, [facility] [address] [id number] [address] [place] [address], [place] [address] December, [facility] [address] [id number] [address] [place] [address], [place] [address] Nov, [facility] [address] [id number] [address] [place] [address], [place] [address] Nov, [facility] [address] [id number] [address] [place] [address], [place] [address] Oct, [facility] [address] [id number] [address] [place] [address], [place] [address] Oct, [facility] [address] [id number] [address] [place] [address], [place] [address] Sep, [facility] [address] [id number] [address] [place] [address], [place] [address] Sep, [facility] [address] [id number] [address] [place] [address], [place] [address] Aug, [facility] [address] [id number] [address] [place] [address], [place] [address] Aug, [facility] [address] [id number] [address] [place] [address], [place] [address] Jul, [facility] [address] [id number] [address] [place] [address], [place] [address] Jul, [facility] [address] [id number] [address] [place] [address], [place] [address] Jun, [facility] [address] [id number] [address] [place] [address], [place] [address] Jun, [facility] [address] [id number] [address] [place] [address], [place] [address] Jun, [facility] [address] [id number] [address] [place] [address], [place] [address] Jun, [facility] [address] [id number] [address] [place] [address], [place] [address] May, [facility] [address] [id number] [address] [place] [address], [place] [address] May, [facility] [address] [id number] [address] [place] [address], [place] [address] May, [facility] [address] [id number] [address] [place] [address], [place] [address] Apr, [facility] [address] [id number] [address] [place] [address], [place] [address] Mar, [facility] [address] [id number] [address] [place] [address], [place] [address] Mar, [facility] [address] [id number] [address] [place] [address], [place] [address] Mar, [facility] [address] [id number] [address] [place] [address], [place] [address] Mar, [facility] [address] [id number] [address] [place] [address], [place] [address] Feb, [facility] [address] [id number] [address] [place] [address], [place] [address] Feb, [facility] [address] [id number] [address] [place] [address], [place] [address] Feb, [facility] [address] [id number] [address] [place] [address], [place] [address] Jan, [facility] [address] [id number] [address] [place] [address], [place] [address] Jan, [facility] [address] [id number] [address] [place] [address], [place] [address] December, [facility] [address] [id number] [address] [place] [address], [place] [address] Nov, [facility] [address] [id number] [address] [place] [address], [place] [address] Nov, [facility] [address] [id number] [address] [place] [address], [place] [address] Oct, [facility] [address] [id number] [address] [place] [address], [place] [address] Oct, [facility] [address] [id number] [address] [place] [address], [place] [address] Oct, [facility] [address] [id number] [address] [place] [address], [place] [address] Sep, [facility] [address] [id number] [address] [place] [address], [place] [address] Sep, [facility] [address] [id number] [address] [place] [address], [place] [address] Aug, [facility] [address] [id number] [address] [place] [address], [place] [address] Jun, [facility] [address] [id number] [address] [place] [address], [place] [address] 30 Jun, 2012 [facility] [address] [id number] [address] [place] [address], [place] [address] Jun, [facility] [address] [id number] [address] [place] [address], [place] [address] Jun, [facility] [address] [id number] [address] [place] [address], [place] [address] Jun, [facility] [address] [id number] [address] [place] [address], [place] [address] Jun, [facility] [address] [id number] [address] [place] [address], [place] [address] Jun, [facility] [address] [id number] [address] [place] [address], [place] [address] Jun, [facility] [address] [id number] [address] [place] [address], [place] [address] May, [facility] [address] [id number] [address] [place] [address], [place] [address] May, [facility] [address] [id number] [address] [place] [address], [place] [address] May, [facility] [address] [id number] [address] [place] [address], [place] [address] May, [facility] [address] [id number] [address] [place] [address], [place] [address] May, [facility] [address] [id number] [address] [place] [address], [place] [address] May, [facility] [address] [id number] [address] [place] [address], [place] [address] 08 Apr, 2012 [facility] [address] [id number] [address] [place] [address], [place] [address] 06 Apr, 2012 [facility] [address] [id number] [address] [place] [address], [place] [address] Mar, [facility] [address] [id number] [address] [place] [address], [place] [address] Feb, [facility] [address] [id number] [address] [place] [address], [place] [address] Jan, [facility] [address] [id number] [address] [place] [address], [place] [address] December, [facility] [address] [id number] [address] [place] [address], [place] [address] Nov, [facility] [address] [id number] [address] [place] [address], [place] [address] Oct, [facility] [address] [id number] [address] [place] [address], [place] [address] Oct, [facility] [address] [id number] [address] [place] [address], [place] [address] Aug, [facility] [address] [id number] [address] [place] [address], [place] [address] Jul, [facility] [address] [id number] [address] [place] [address], [place] [address] Jun, [facility] [address] [id number] [address] [place] [address], [place] [address] 14 Jun, 2011 [facility] [address] [id number] [address] [place] [address], [place] [address] May, [facility] [address] [id number] [address] [place] [address], [place] [address] May, [facility] [address] [id number] [address] [place] [address], [place] [address] Aug, [facility] [address] [id number] [address] [place] [address], [place] [address] Jul, [facility] [address] [id number] [address] [place] [address], [place] [address] Jul, [facility] [address] [id number] [address] [place] [address] Jun, [facility] [address] [id number] [address] [place] [address] Jun, [facility] [address] [id number] [address] [place] [address] Jun, [facility] [address] [id number] [address] [place] [address] Jun, [facility] [address] [id number] [address] [place] [address] Jun, [facility] [address] [id number] [address] [place] [address] May, [facility] [address] [id number] [address] [place] [address] May, [facility] [address] [facility] [id number] [address] [place] [address] May, IMMUNIZATIONS No Known Immunizations SOCIAL HISTORY Never Assessed REASON FOR VISIT [facility] PLAN OF CARE VITAL SIGNS MEDICATIONS Unknown Medications RESULTS No Results PROCEDURES No Known procedures INSTRUCTIONS MEDICATIONS ADMINISTERED No Known Medications MEDICAL (GENERAL) HISTORY Type Description Date Medical History attention deficit hyperactivity disorder Surgical History No Surgical history information Hospitalization History [facility] P[facility] 04/2016
--- OUTSIDE RECORDS SUMMARY | 2020-02-16 14:17 | XMS REPORT ---
Author Author Andrew Garcia Doctor Organization [facility] Address Unknown Phone Unavailable Care Team Providers Care Icu Manager Name Role Phone Migration, Doctor Unavailable Unavailable PROBLEMS Type Condition ICD9-CM Code PSW25-XR Code Onset Dates Condition S tatus SNOMED Code Problem Attention deficit hyperactiv ity disorder (ADHD), predominantly inattentive type F90.0 Active 53477535 Problem Adjustment disorder with anxiety F43.22 Active 00076307 Problem Attention deficit hyperactivity disorder (ADHD), combi david type F90.2 Active 668560934 Problem Mood disorder F39 Active [id number] ALLERGIES No Information ENCOUNTERS Encounter Location Date Diagnosis [place] [address] [place] [id number] [address] [place] [id number] Jan, [place] [address] [place] [id number] [address] [place] [address] Aug, Blood in stool K92.1 and His tory of hemorrhoids Z87.19 [place] [address] [place] [id number] [place] [phone] Jul, Attention deficit hyperactiv ity disorder (ADHD), combined type F90.2 [place] [address] [place] [id number] [address] [place] [address] Jul, Attention deficit hyperactiv ity disorder (ADHD), combined type F90.2 and Adjustment disorder with anxiety F43.22 [facility] [address] [facility] [id number] [address] [place] [address] Jun, Bloody stools K92.1 and Acut e bilateral low back pain without sciatica M54.5 [facility] [address] [place] [id number] [place] [id number] 08 Jun, 2018 Attention deficit hyperactiv ity disorder (ADHD), combined type F90.2 [place] [address] [place] [id number] [address] [place] [id number] 15 May, 2018 Attention deficit hyperactiv ity disorder (ADHD), combined type F90.2 [facility] [address] [facility] [id number] [address] [place] [phone] 10 Apr, 2018 Attention deficit hyperactiv ity disorder (ADHD), combined type F90.2 [facility] [address] [facility] [id number] [address] [place] [address] Mar, Attention deficit hyperactiv ity disorder (ADHD), combined type F90.2 [facility] [address] [facility] [id number] [address] [place] [address] Mar, Attention deficit hyperactiv ity disorder (ADHD), combined type F90.2 [facility] [address] [facility] [id number] [address] [place] [address] Mar, Attention deficit hyperactiv ity disorder (ADHD), combined type F90.2 and High risk medication use Z79.899 [facility] [address] [place] [place] [id number] [address] [place] [address] Mar, Gastroenteritis K52.9 [facility] [address] [place] [place] [id number] [address] [place] [address] Feb, Attention deficit hyperactiv ity disorder (ADHD), combined type F90.2 [facility] [address] [place] [place] [id number] [address] [place] [id number] 05 Jan, 2018 Attention deficit hyperactiv ity disorder (ADHD), combined type F90.2 and High risk medication use Z79.899 [place] [address] [place], [place] [id number] 13 Sep, 2017 Acute cystitis without hematuria N30.00 and Acute suppurative otitis media of left ear with spontaneous rupture of tympanic membrane, recurrence not specified H66.012 [place] [address] [place] [id number] Jul, Seborrheic keratoses L82.1 and Mood disorder F39 [place] [address] [place] [id number] 57 Jul, Attention deficit hyperactivity disorder (ADHD), predominantly inattentive type F90.0 [facility] [address] [place], [place] [id number] 57 Jul, Mood disorder F39 [facility] [address] [facility] [id number] [address] [place] [address] Sep, [facility] [address] [facility] [id number] [address] [place] [address] Aug, [facility] [address] [facility] [id number] [address] [place] [id number] Jul, [facility] [address] [facility] [id number] [address] [place] [address] Jul, [facility] [address] [facility] [id number] [address] [place] [address] Jun, Attention deficit hyperactiv ity disorder (ADHD), combined type F90.2 [facility] [address] [facility] [id number] [address] [place] [address] May, [facility] [address] [facility] [id number] [address] [place] [address] Apr, Attention deficit hyperactiv ity disorder (ADHD), combined type F90.2 [facility] [address] [facility] [id number] [address] [place] [address] Mar, Acute non-recurrent maxillar y sinusitis J01.00 [facility] [address] [facility] [id number] [address] [place] [address] Mar, Acute non-recurrent maxillar y sinusitis J01.00 [facility] [address] [facility] [id number] [address] [place] [id number] Mar, [facility] [address] [facility] [id number] [address] [place] [address] Feb, Gastroenteritis K52.9 [facility] [address] [facility] [id number] [address] [place] [address] Feb, [facility] [address] [id number] [address] [place] [address] Jan, [facility] [address] [facility] [id number] [address] [place] [address] December, [facility] [address] [facility] [id number] [address] [place] [address] December, Rash R21 [facility] [address] [facility] [id number] [address] [place] [phone] Nov, [facility] [address] [id number] [address] [place] [id number] Nov, [facility] [address] [facility] [id number] [address] [place] [id number] Oct, [facility] [address] [facility] [id number] [address] [place] [phone] Oct, Attention deficit hyperactiv ity disorder (ADHD), combined type F90.2 [facility] [address] [facility] [id number] [address] [place] [id number] Sep, [facility] [address] [facility] [id number] [address] [place] [phone] Sep, Viral syndrome B34.9 and HSV (herpes simplex virus) infection B00.9 [facility] [address] [facility] [id number] [address] [place] [phone] Aug, [facility] [address] [facility] [id number] [address] [place] [id number] Aug, [facility] [address] [facility] [id number] [address] [place] [phone] Jul, [facility] [address] [facility] [id number] [address] [place] [address] Jun, Gastroenteritis K52.9 [facility] [address] [facility] [id number] [address] [place] [id number] Jun, [facility] [address] [facility] [id number] [address] [place] [id number] Jun, Attention deficit hyperactiv ity disorder (ADHD), combined type F90.2 [facility] [address] [facility] [id number] [address] [place] [id number] Jun, [facility] [address] [facility] [id number] [address] [place] [address] May, 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 [facility] [address] [facility] [id number] [address] [place] [phone] May, [facility] [address] [facility] [id number] [address] [place] [address] Apr, [facility] [address] [facility] [id number] [address] [place] [id number] Mar, [facility] [address] [facility] [id number] [address] [place] [phone] Feb, [facility] [address] [facility] [id number] [address] [place] [id number] Jan, Poison janneth 692.6 [facility] [address] [place] [id number] [address] [place] [id number] Jan, Attention deficit disorder ( ADD) 314.00 [facility] [address] [facility] [id number] [address] [place] [id number] Jan, [facility] [address] [facility] [id number] [address] [place] [address] Jan, Poison janneth dermatitis 692.6 [facility] [address] [facility] [id number] [address] [place] [phone] December, [facility] [address] [facility] [id number] [address] [place] [phone] Nov, [facility] [address] [facility] [id number] [address] [place] [address] Nov, [facility] [address] [id number] [address] [place] [address], [place] [address] 13 Oct, 2014 [facility] [address] [id number] [address] [place] [address], [place] [address] 13 Oct, 2014 [facility] [address] [id number] [address] [place] [address], [place] [address] Oct, [facility] [address] [id number] [address] [place] [address], [place] [address] Oct, [facility] [address] [id number] [address] [place] [address], [place] [address] Oct, [facility] [address] [id number] [address] [place] [address], [place] [address] 05 Oct, 2014 [facility] [address] [id number] [address] [place] [address], [place] [address] Oct, [facility] [address] [id number] [address] [place] [address], [place] [address] Oct, [facility] [address] [id number] [address] [place] [address], [place] [address] Sep, [facility] [address] [id number] [address] [place] [address], [place] [address] Sep, [facility] [address] [id number] [address] [place] [address], [place] [address] Aug, [facility] [address] [id number] [address] [place] [address], [place] [address] Aug, [facility] [address] [id number] [address] [place] [address], [place] [address] Aug, [facility] [address] [id number] [address] [place] [address], [place] [address] Aug, [facility] [address] [id number] [address] [place] [address], [place] [address] Aug, [facility] [address] [id number] [address] [place] [address], [place] [address] Aug, [facility] [address] [id number] [address] [place] [address], [place] [address] Jul, [facility] [address] [id number] [address] [place] [address], [place] [address] Jul, [facility] [address] [id number] [address] [place] [address], [place] [address] Jun, [facility] [address] [id number] [address] [place] [address], [place] [address] Jun, [facility] [address] [id number] [address] [place] [address], [place] [address] Jun, [facility] [address] [id number] [address] [place] [address], [place] [address] Jun, [facility] [address] [id number] [address] [place] [address], [place] [address] May, [facility] [address] [id number] [address] [place] [address], [place] [address] May, [facility] [address] [id number] [address] [place] [address], [place] [address] Apr, [facility] [address] [id number] [address] [place] [address], [place] [address] Apr, [facility] [address] [id number] [address] [place] [address], [place] [address] Mar, [facility] [address] [id number] [address] [place] [address], [place] [address] Mar, [facility] [address] [id number] [address] [place] [address], [place] [address] Feb, [facility] [address] [id number] [address] [place] [address], [place] [address] Feb, [facility] [address] [id number] [address] [place] [address], [place] [address] Feb, [facility] [address] [id number] [address] [place] [address], [place] [address] Feb, [facility] [address] [id number] [address] [place] [address], [place] [address] Jan, [facility] [address] [id number] [address] [place] [address], [place] [address] Jan, [facility] [address] [id number] [address] [place] [address], [place] [address] Jan, [facility] [address] [id number] [address] [place] [address], [place] [address] Jan, [facility] [address] [id number] [address] [place] [address], [place] [address] December, [facility] [address] [id number] [address] [place] [address], [place] [address] December, [facility] [address] [id number] [address] [place] [address], [place] [address] December, [facility] [address] [id number] [address] [place] [address], [place] [address] December, [facility] [address] [id number] [address] [place] [address], [place] [address] Nov, [facility] [address] [id number] [address] [place] [address], [place] [address] Nov, [facility] [address] [id number] [address] [place] [address], [place] [address] Oct, [facility] [address] [id number] [address] [place] [address], [place] [address] Oct, [facility] [address] [id number] [address] [place] [address], [place] [address] Sep, [facility] [address] [id number] [address] [place] [address], [place] [address] Sep, [facility] [address] [id number] [address] [place] [address], [place] [address] Aug, [facility] [address] [id number] [address] [place] [address], [place] [address] Aug, [facility] [address] [id number] [address] [place] [address], [place] [address] Jul, [facility] [address] [id number] [address] [place] [address], [place] [address] Jul, [facility] [address] [id number] [address] [place] [address], [place] [address] Jun, [facility] [address] [id number] [address] [place] [address], [place] [address] Jun, [facility] [address] [id number] [address] [place] [address], [place] [address] Jun, [facility] [address] [id number] [address] [place] [address], [place] [address] Jun, [facility] [address] [id number] [address] [place] [address], [place] [address] May, [facility] [address] [id number] [address] [place] [address], [place] [address] May, [facility] [address] [id number] [address] [place] [address], [place] [address] May, [facility] [address] [id number] [address] [place] [address], [place] [address] Apr, [facility] [address] [id number] [address] [place] [address], [place] [address] Mar, [facility] [address] [id number] [address] [place] [address], [place] [address] Mar, [facility] [address] [id number] [address] [place] [address], [place] [address] Mar, [facility] [address] [id number] [address] [place] [address], [place] [address] Mar, [facility] [address] [id number] [address] [place] [address], [place] [address] Feb, [facility] [address] [id number] [address] [place] [address], [place] [address] Feb, [facility] [address] [id number] [address] [place] [address], [place] [address] Feb, [facility] [address] [id number] [address] [place] [address], [place] [address] Jan, [facility] [address] [id number] [address] [place] [address], [place] [address] Jan, [facility] [address] [id number] [address] [place] [address], [place] [address] December, [facility] [address] [id number] [address] [place] [address], [place] [address] Nov, [facility] [address] [id number] [address] [place] [address], [place] [address] Nov, [facility] [address] [id number] [address] [place] [address], [place] [address] Oct, [facility] [address] [id number] [address] [place] [address], [place] [address] Oct, [facility] [address] [id number] [address] [place] [address], [place] [address] Oct, [facility] [address] [id number] [address] [place] [address], [place] [address] Sep, [facility] [address] [id number] [address] [place] [address], [place] [address] Sep, [facility] [address] [id number] [address] [place] [address], [place] [address] Aug, [facility] [address] [id number] [address] [place] [address], [place] [address] Jun, [facility] [address] [id number] [address] [place] [address], [place] [address] Jun, [facility] [address] [id number] [address] [place] [address], [place] [address] Jun, [facility] [address] [id number] [address] [place] [address], [place] [address] Jun, [facility] [address] [id number] [address] [place] [address], [place] [address] Jun, [facility] [address] [id number] [address] [place] [address], [place] [address] Jun, [facility] [address] [id number] [address] [place] [address], [place] [address] Jun, [facility] [address] [id number] [address] [place] [address], [place] [address] Jun, [facility] [address] [id number] [address] [place] [address], [place] [address] May, [facility] [address] [id number] [address] [place] [address], [place] [address] May, [facility] [address] [id number] [address] [place] [address], [place] [address] May, [facility] [address] [id number] [address] [place] [address], [place] [address] May, [facility] [address] [id number] [address] [place] [address], [place] [address] May, [facility] [address] [id number] [address] [place] [address], [place] [address] May, [facility] [address] [id number] [address] [place] [address], [place] [address] Apr, [facility] [address] [id number] [address] [place] [address], [place] [address] Apr, [facility] [address] [id number] [address] [place] [address], [place] [address] Mar, [facility] [address] [id number] [address] [place] [address], [place] [address] Feb, [facility] [address] [id number] [address] [place] [address], [place] [address] Jan, [facility] [address] [id number] [address] [place] [address], [place] [address] December, [facility] [address] [id number] [address] [place] [address], [place] [address] Nov, [facility] [address] [id number] [address] [place] [address], [place] [address] Oct, [facility] [address] [id number] [address] [place] [address], [place] [address] Oct, [facility] [address] [id number] [address] [place] [address], [place] [address] Aug, [facility] [address] [id number] [address] [place] [address], [place] [address] Jul, [facility] [address] [id number] [address] [place] [address], [place] [address] Jun, [facility] [address] [id number] [address] [place] [address], [place] [address] Jun, [facility] [address] [id number] [address] [place] [address], [place] [address] May, [facility] [address] [id number] [address] [place] [address], [place] [address] May, [facility] [address] [id number] [address] [place] [address], [place] [address] Aug, [facility] [address] [id number] [address] [place] [address], [place] [address] 29 Jul, 2010 [facility] [address] [id number] [address] [place] [address], [place] [address] Jul, [facility] [address] [id number] [address] [place] [address], [place] [address] 17 Jun, 2010 [facility] [address] [id number] [address] [place] [address] 17 Jun, 2010 [facility] [address] [facility] [id number] [address] [place] [address] Jun, [facility] [address] [facility] [id number] [address] [place] [address] Jun, [facility] [address] [facility] [id number] [address] [place] [address] Jun, [facility] [address] [facility] [id number] [address] [place] [address] May, [facility] [address] [facility] [id number] [address] [place] [address] May, [facility] [address] [facility] [id number] 31 [place] [id number] May, IMMUNIZATIONS No Known Immunizations SOCIAL HISTORY Never Assessed REASON FOR VISIT EMR-[facility] [place], [place] PLAN OF CARE VITAL SIGNS MEDICATIONS Unknown Medications RESULTS No Results PROCEDURES No Known procedures INSTRUCTIONS MEDICATIONS ADMINISTERED No Known Medications MEDICAL (GENERAL) HISTORY Type Description Date Medical History attention deficit hyperactivity disorder Surgical History No Surgical history information Hospitalization History [facility] P[facility] 04/2016
--- OUTSIDE RECORDS SUMMARY | 2020-02-16 14:18 | XMS REPORT ---
Author Author Andrew Garcia Doctor Organization [facility] Address Unknown Phone Unavailable Care Team Providers Care Clay Miner Name Role Phone Migration, Doctor Unavailable Unavailable PROBLEMS Type Condition ICD9-CM Code [id number] Code Onset Dates Condition S tatus SNOMED Code Problem Attention deficit hyperactiv ity disorder (ADHD), predominantly inattentive type F90.0 Active 24719353 Problem Adjustment disorder with anxiety F43.22 Active 10740967 Problem Attention deficit hyperactivity disorder (ADHD), combi david type F90.2 Active 274741672 Problem Mood disorder F39 Active 661209 05 ALLERGIES No Information ENCOUNTERS Encounter Location Date Diagnosis [place] [address] [place] [id number] [place] [id number] Jan, [place] [address] [place] [id number] [place] [address] Aug, Blood in stool K92.1 and His tory of hemorrhoids Z87.19 [place] [address] [place] [id number] [place] [address] Jul, Attention deficit hyperactiv ity disorder (ADHD), combined type F90.2 [facility] [address] [id number] [place] [address] Jul, Attention deficit hyperactiv ity disorder (ADHD), combined type F90.2 and Adjustment disorder with anxiety F43.22 [facility] [address] [facility] [id number] [address] [place] [address] Jun, Bloody stools K92.1 and Acut e bilateral low back pain without sciatica M54.5 [facility] [address] [facility] [id number] [address] [place] [address] 08 Jun, 2018 Attention deficit hyperactiv ity disorder (ADHD), combined type F90.2 [place] [address] [place] [id number] [place] [address] 15 May, 2018 Attention deficit hyperactiv ity disorder (ADHD), combined type F90.2 [facility] [address] [facility] [id number] [address] [place] [address] 10 Apr, 2018 Attention deficit hyperactiv ity disorder (ADHD), combined type F90.2 [facility] [address] [facility] [id number] [address] [place] [address] Mar, Attention deficit hyperactiv ity disorder (ADHD), combined type F90.2 [facility] [address] [facility] [id number] [address] [place] [address] Mar, Attention deficit hyperactiv ity disorder (ADHD), combined type F90.2 [facility] [address] [facility] [id number] [address] [place] [address] Mar, Attention deficit hyperactiv ity disorder (ADHD), combined type F90.2 and High risk medication use Z79.899 [facility] [id number] [place] [address] Mar, Gastroenteritis K52.9 [facility] [id number] [place] [address] Feb, Attention deficit hyperactiv ity disorder (ADHD), combined type F90.2 [facility] [address] [id number] [place] [address] 05 Jan, 2018 Attention deficit hyperactiv ity disorder (ADHD), combined type F90.2 and High risk medication use Z79.899 [place] [address] [place], [place] [id number] 13 Sep, 2017 Acute cystitis without hematuria N30.00 and Acute suppurative otitis media of left ear with spontaneous rupture of tympanic membrane, recurrence not specified H66.012 [place] [address] [place], [place] [id number] Jul, Seborrheic keratoses L82.1 and Mood disorder F39 [place] [address] [place], [place] [id number] Jul, Attention deficit hyperactivity disorder (ADHD), predominantly inattentive type F90.0 [facility] [address] [place], [place] [id number] 57 Jul, Mood disorder F39 [facility] [address] [facility] [id number] [address] [place] [address] Sep, [facility] [address] [facility] [id number] [address] [place] [address] Aug, [facility] [address] [facility] [id number] [address] [place] [address] Jul, [facility] [address] [facility] [id number] [address] [place] [address] Jul, [facility] [address] [facility] [id number] [address] [place] [address] Jun, Attention deficit hyperactiv ity disorder (ADHD), combined type F90.2 [facility] [address] [facility] [id number] [address] [place] [address] May, [facility] [address] [facility] [id number] [address] [place] [address] Apr, Attention deficit hyperactiv ity disorder (ADHD), combined type F90.2 [facility] [address] [facility] [id number] [address] [place] [address] Mar, Acute non-recurrent maxillar y sinusitis J01.00 [facility] [address] [facility] [id number] [address] [place] [address] Mar, Acute non-recurrent maxillar y sinusitis J01.00 [facility] [address] [facility] [id number] [address] [place] [address] Mar, [facility] [address] [facility] [id number] [address] [place] [address] Feb, Gastroenteritis K52.9 [facility] [address] [facility] [id number] [address] [place] [address] Feb, [facility] [address] [id number] [address] [place] [address] Jan, [facility] [address] [facility] [id number] [address] [place] [address] December, [facility] [address] [facility] [id number] [address] [place] [address] December, Rash R21 [facility] [address] [facility] [id number] [address] [place] [address] Nov, [facility] [address] [id number] [address] [place] [address] Nov, [facility] [address] [facility] [id number] [address] [place] [address] Oct, [facility] [address] [facility] [id number] [address] [place] [address] Oct, Attention deficit hyperactiv ity disorder (ADHD), combined type F90.2 [facility] [address] [facility] [id number] [address] [place] [address] Sep, [facility] [address] [facility] [id number] [address] [place] [address] Sep, Viral syndrome B34.9 and HSV (herpes simplex virus) infection B00.9 [facility] [address] [facility] [id number] [address] [place] [address] Aug, [facility] [address] [facility] [id number] [address] [place] [address] Aug, [facility] [address] [facility] [id number] [address] [place] [address] Jul, [facility] [address] [facility] [id number] [address] [place] [address] Jun, Gastroenteritis K52.9 [facility] [address] [facility] [id number] [address] [place] [address] Jun, [facility] [address] [facility] [id number] [address] [place] [address] Jun, Attention deficit hyperactiv ity disorder (ADHD), combined type F90.2 [facility] [address] [facility] [id number] [address] [place] [address] Jun, [facility] [address] [facility] [id number] [address] [place] [address] May, 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 [facility] [address] [facility] [id number] [address] [place] [address] May, [facility] [address] [facility] [id number] [address] [place] [address] Apr, [facility] [address] [facility] [id number] [address] [place] [address] Mar, [facility] [address] [facility] [id number] [address] [place] [address] Feb, [facility] [address] [facility] [id number] [address] [place] [address] Jan, Poison janneth 692.6 [facility] [address] [place] [id number] [place] [address] Jan, Attention deficit disorder ( ADD) 314.00 [facility] [address] [facility] [id number] [address] [place] [address] Jan, [facility] [address] [facility] [id number] [address] [place] [address] Jan, Poison janneth dermatitis 692.6 [facility] [address] [facility] [id number] [address] [place] [address] December, [facility] [address] [facility] [id number] [address] [place] [address] Nov, [facility] [address] [facility] [id number] [address] [place] [address] Nov, [facility] [address] [id number] [address] [place] [address], [place] [address] 13 Oct, 2014 [facility] [address] [id number] [address] [place] [address], [place] [address] 13 Oct, 2014 [facility] [address] [id number] [address] [place] [address], [place] [address] Oct, [facility] [address] [id number] [address] [place] [address], [place] [address] Oct, [facility] [address] [id number] [address] [place] [address], [place] [address] Oct, [facility] [address] [id number] [address] [place] [address], [place] [address] 05 Oct, 2014 [facility] [address] [id number] [address] [place] [address], [place] [address] Oct, [facility] [address] [id number] [address] [place] [address], [place] [address] Oct, [facility] [address] [id number] [address] [place] [address], [place] [address] Sep, [facility] [address] [id number] [address] [place] [address], [place] [address] Sep, [facility] [address] [id number] [address] [place] [address], [place] [address] Aug, [facility] [address] [id number] [address] [place] [address], [place] [address] Aug, [facility] [address] [id number] [address] [place] [address], [place] [address] Aug, [facility] [address] [id number] [address] [place] [address], [place] [address] Aug, [facility] [address] [id number] [address] [place] [address], [place] [address] Aug, [facility] [address] [id number] [address] [place] [address], [place] [address] Aug, [facility] [address] [id number] [address] [place] [address], [place] [address] Jul, [facility] [address] [id number] [address] [place] [address], [place] [address] Jul, [facility] [address] [id number] [address] [place] [address], [place] [address] Jun, [facility] [address] [id number] [address] [place] [address], [place] [address] Jun, [facility] [address] [id number] [address] [place] [address], [place] [address] Jun, [facility] [address] [id number] [address] [place] [address], [place] [address] Jun, [facility] [address] [id number] [address] [place] [address], [place] [address] May, [facility] [address] [id number] [address] [place] [address], [place] [address] May, [facility] [address] [id number] [address] [place] [address], [place] [address] Apr, [facility] [address] [id number] [address] [place] [address], [place] [address] Apr, [facility] [address] [id number] [address] [place] [address], [place] [address] Mar, [facility] [address] [id number] [address] [place] [address], [place] [address] Mar, [facility] [address] [id number] [address] [place] [address], [place] [address] Feb, [facility] [address] [id number] [address] [place] [address], [place] [address] Feb, [facility] [address] [id number] [address] [place] [address], [place] [address] Feb, [facility] [address] [id number] [address] [place] [address], [place] [address] Feb, [facility] [address] [id number] [address] [place] [address], [place] [address] Jan, [facility] [address] [id number] [address] [place] [address], [place] [address] Jan, [facility] [address] [id number] [address] [place] [address], [place] [address] Jan, [facility] [address] [id number] [address] [place] [address], [place] [address] Jan, [facility] [address] [id number] [address] [place] [address], [place] [address] December, [facility] [address] [id number] [address] [place] [address], [place] [address] December, [facility] [address] [id number] [address] [place] [address], [place] [address] December, [facility] [address] [id number] [address] [place] [address], [place] [address] December, [facility] [address] [id number] [address] [place] [address], [place] [address] Nov, [facility] [address] [id number] [address] [place] [address], [place] [address] Nov, [facility] [address] [id number] [address] [place] [address], [place] [address] Oct, [facility] [address] [id number] [address] [place] [address], [place] [address] Oct, [facility] [address] [id number] [address] [place] [address], [place] [address] Sep, [facility] [address] [id number] [address] [place] [address], [place] [address] Sep, [facility] [address] [id number] [address] [place] [address], [place] [address] Aug, [facility] [address] [id number] [address] [place] [address], [place] [address] Aug, [facility] [address] [id number] [address] [place] [address], [place] [address] Jul, [facility] [address] [id number] [address] [place] [address], [place] [address] Jul, [facility] [address] [id number] [address] [place] [address], [place] [address] Jun, [facility] [address] [id number] [address] [place] [address], [place] [address] Jun, [facility] [address] [id number] [address] [place] [address], [place] [address] Jun, [facility] [address] [id number] [address] [place] [address], [place] [address] Jun, [facility] [address] [id number] [address] [place] [address], [place] [address] May, [facility] [address] [id number] [address] [place] [address], [place] [address] May, [facility] [address] [id number] [address] [place] [address], [place] [address] May, [facility] [address] [id number] [address] [place] [address], [place] [address] Apr, [facility] [address] [id number] [address] [place] [address], [place] [address] Mar, [facility] [address] [id number] [address] [place] [address], [place] [address] Mar, [facility] [address] [id number] [address] [place] [address], [place] [address] Mar, [facility] [address] [id number] [address] [place] [address], [place] [address] Mar, [facility] [address] [id number] [address] [place] [address], [place] [address] Feb, [facility] [address] [id number] [address] [place] [address], [place] [address] Feb, [facility] [address] [id number] [address] [place] [address], [place] [address] Feb, [facility] [address] [id number] [address] [place] [address], [place] [address] Jan, [facility] [address] [id number] [address] [place] [address], [place] [address] Jan, [facility] [address] [id number] [address] [place] [address], [place] [address] December, [facility] [address] [id number] [address] [place] [address], [place] [address] Nov, [facility] [address] [id number] [address] [place] [address], [place] [address] Nov, [facility] [address] [id number] [address] [place] [address], [place] [address] Oct, [facility] [address] [id number] [address] [place] [address], [place] [address] Oct, [facility] [address] [id number] [address] [place] [address], [place] [address] Oct, [facility] [address] [id number] [address] [place] [address], [place] [address] Sep, [facility] [address] [id number] [address] [place] [address], [place] [address] Sep, [facility] [address] [id number] [address] [place] [address], [place] [address] Aug, [facility] [address] [id number] [address] [place] [address], [place] [address] Jun, [facility] [address] [id number] [address] [place] [address], [place] [address] Jun, [facility] [address] [id number] [address] [place] [address], [place] [address] Jun, [facility] [address] [id number] [address] [place] [address], [place] [address] Jun, [facility] [address] [id number] [address] [place] [address], [place] [address] Jun, [facility] [address] [id number] [address] [place] [address], [place] [address] Jun, [facility] [address] [id number] [address] [place] [address], [place] [address] Jun, [facility] [address] [id number] [address] [place] [address], [place] [address] Jun, [facility] [address] [id number] [address] [place] [address], [place] [address] May, [facility] [address] [id number] [address] [place] [address], [place] [address] May, [facility] [address] [id number] [address] [place] [address], [place] [address] May, [facility] [address] [id number] [address] [place] [address], [place] [address] May, [facility] [address] [id number] [address] [place] [address], [place] [address] May, [facility] [address] [id number] [address] [place] [address], [place] [address] May, [facility] [address] [id number] [address] [place] [address], [place] [address] Apr, [facility] [address] [id number] [address] [place] [address], [place] [address] Apr, [facility] [address] [id number] [address] [place] [address], [place] [address] Mar, [facility] [address] [id number] [address] [place] [address], [place] [address] Feb, [facility] [address] [id number] [address] [place] [address], [place] [address] Jan, [facility] [address] [id number] [address] [place] [address], [place] [address] December, [facility] [address] [id number] [address] [place] [address], [place] [address] Nov, [facility] [address] [id number] [address] [place] [address], [place] [address] Oct, [facility] [address] [id number] [address] [place] [address], [place] [address] Oct, [facility] [address] [id number] [address] [place] [address], [place] [address] Aug, [facility] [address] [id number] [address] [place] [address], [place] [address] Jul, [facility] [address] [id number] [address] [place] [address], [place] [address] Jun, [facility] [address] [id number] [address] [place] [address], [place] [address] Jun, [facility] [address] [id number] [address] [place] [address], [place] [address] May, [facility] [address] [id number] [address] [place] [address], [place] [address] May, [facility] [address] [id number] [address] [place] [address], [place] [address] Aug, [facility] [address] [id number] [address] [place] [address], [place] [address] 29 Jul, 2010 [facility] [address] [id number] [address] [place] [address], [place] [address] Jul, [facility] [address] [id number] [address] [place] [address], [place] [address] 17 Jun, 2010 [facility] [address] [id number] [address] [place] [id number] 17 Jun, 2010 [facility] [address] [facility] [id number] [address] [place] [id number] Jun, [facility] [address] [facility] [id number] [address] [place] [id number] Jun, [facility] [address] [facility] [id number] [address] [place] [id number] Jun, [facility] [address] [facility] [id number] [address] [place] [id number] May, [facility] [address] [facility] [id number] [address] [place] [id number] May, [facility] [address] [facility] [id number] [address] [place] [id number] May, IMMUNIZATIONS No Known Immunizations SOCIAL HISTORY Never Assessed REASON FOR VISIT EMR-[facility] [place] PLAN OF CARE VITAL SIGNS MEDICATIONS Unknown Medications RESULTS No Results PROCEDURES No Known procedures INSTRUCTIONS MEDICATIONS ADMINISTERED No Known Medications MEDICAL (GENERAL) HISTORY Type Description Date Medical History attention deficit hyperactivity disorder Surgical History No Surgical history information Hospitalization History [facility] P[facility] 04/2016
--- OUTSIDE RECORDS SUMMARY | 2020-02-16 14:18 | XMS REPORT ---
Author Author Andrew CLEMONS Organization [facility] Address [address] [place] [address] Care Team Providers Care Resources Representative Name Role Phone ANDREW CLEMONS Unavailable PROBLEMS Type Condition ICD9-CM Code [id number] Code Onset Dates Condition S tatus SNOMED Code Problem Attention deficit hyperactiv ity disorder (ADHD), predominantly inattentive type F90.0 Active 72064821 Problem Mood disorder F39 Active 933945 05 Problem Attention deficit hyperactivity disorder (ADHD), combi david type F90.2 Active [id number] ALLERGIES No Known Allergies ENCOUNTERS Encounter Location Date Diagnosis [facility] [address] [id number] [address] [place] [address] Jul, [facility] [address] [id number] [address] [place] [address] Jul, [facility] [address] [id number] [address] [place] [address] Jun, Bloody stools K92.1 and Acut e bilateral low back pain without sciatica M54.5 [facility] [address] [id number] [address] [place] [phone] Jun, Attention deficit hyperactiv ity disorder (ADHD), combined type F90.2 [facility] [address] [facility] [id number] [address] [place] [address] May, Attention deficit hyperactiv ity disorder (ADHD), combined type F90.2 [facility] [address] [id number] [address] [place] [address] Apr, Attention deficit hyperactiv ity disorder (ADHD), combined type F90.2 [facility] [address] [id number] [address] [place] [address] Mar, Attention deficit hyperactiv ity disorder (ADHD), combined type F90.2 [facility] [address] [facility] [id number] [address] [place] [address] Mar, Attention deficit hyperactiv ity disorder (ADHD), combined type F90.2 [facility] [address] [facility] [id number] [address] [place] [address] Mar, Attention deficit hyperactiv ity disorder (ADHD), combined type F90.2 and High risk medication use Z79.899 [facility] [address] [id number] [address] [place] [address] Mar, Gastroenteritis K52.9 [facility] [address] [id number] [address] [place] [address] Feb, Attention deficit hyperactiv ity disorder (ADHD), combined type F90.2 [facility] [address] [id number] [address] [place] [address] Jan, Attention deficit hyperactiv ity disorder (ADHD), combined type F90.2 and High risk medication use Z79.[address] [id number] 13 Sep, 2017 Acute cystitis without hematuria N30.00 and Acute suppurative otitis media of left ear with spontaneous rupture of tympanic membrane, recurrence not specified H66.[address] [id number] Jul, Seborrheic keratoses L82.1 and Mood disorder F39 [address] [id number] Jul, Attention deficit hyperactivity disorder (ADHD), predominantly inattentive type F90.[address] [id number] Jul, Mood disorder F39 [facility] [address] [id number] [address] [place] [address] Sep, [facility] [address] [id number] [address] [place] [address] Aug, [place] [address] [id number] [address] [place] [address] Jul, [facility] [address] [id number] [address] [place] [phone] Jul, [facility] [address] [id number] [address] [place] [address] Jun, Attention deficit hyperactiv ity disorder (ADHD), combined type F90.2 [facility] [address] [id number] [address] [place] [address] May, [facility] [address] [id number] [address] [place] [address] Apr, Attention deficit hyperactiv ity disorder (ADHD), combined type F90.2 [facility] [address] [id number] [address] [place] [address] Mar, Acute non-recurrent maxillar y sinusitis J01.00 [facility] [address] [id number] [address] [place] [phone] Mar, Acute non-recurrent maxillar y sinusitis J01.00 [facility] [address] [id number] [address] [place] [address] Mar, [facility] [address] [facility] [id number] [address] [place] [address] Feb, Gastroenteritis K52.9 [facility] [address] [facility] [id number] [address] [place] [address] Feb, [facility] [address] [facility] [id number] [address] [place] [address] Jan, [facility] [address] [facility] [id number] [address] [place] [address] December, [facility] [address] [facility] [id number] [address] [place] [address] December, Rash R21 [facility] [address] [facility] [id number] [address] [place] [address] Nov, [facility] [address] [facility] [id number] [address] [place] [address] Nov, [facility] [address] [facility] [id number] [address] [place] [address] Oct, [facility] [address] [facility] [id number] [address] [place] [address] Oct, Attention deficit hyperactiv ity disorder (ADHD), combined type F90.2 [facility] [address] [facility] [id number] [address] [place] [address] Sep, [facility] [address] [facility] [id number] [address] [place] [address] Sep, Viral syndrome B34.9 and HSV (herpes simplex virus) infection B00.9 [facility] [address] [facility] [id number] [address] [place] [address] Aug, [facility] [address] [facility] [id number] [address] [place] [address] Aug, [facility] [address] [facility] [id number] [address] [place] [address] Jul, [facility] [address] [facility] [id number] [address] [place] [address] Jun, Gastroenteritis K52.9 [facility] [address] [facility] [id number] [address] [place] [address] Jun, [facility] [address] [facility] [id number] [address] [place] [address] Jun, Attention deficit hyperactiv ity disorder (ADHD), combined type F90.2 [facility] [address] [facility] [id number] [address] [place] [address] Jun, [facility] [address] [facility] [id number] [address] [place] [address] May, 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 [facility] [address] [id number] [address] [place] [address] 09 May, 2015 [facility] [address] [id number] [address] [place] [phone] 08 Apr, 2015 [facility] [address] [id number] [address] [place] [address] Mar, [facility] [address] [id number] [address] [place] [address] Feb, [facility] [address] [id number] [address] [place] [address] Jan, Poison janneth 692.6 [facility] [address] [id number] [address] [place] [address] 17 Jan, 2015 Attention deficit disorder ( ADD) 314.00 [facility] [address] [id number] [address] [place] [address] Jan, [facility] [address] [id number] [address] [place] [address] Jan, Poison janneth dermatitis 692.6 [facility] [address] [facility] [id number] [address] [place] [address] December, [facility] [address] [facility] [id number] [address] [place] [address] 14 Nov, 2014 [facility] [address] [id number] [address] [place] [address] Nov, [facility] [address] [id number] [address] [place] [address] Oct, [facility] [address] [id number] [address] [place] [address] Oct, [facility] [address] [id number] [address] [place] [phone] Oct, [facility] [address] [facility] [id number] [address] [place] [phone] Oct, [facility] [address] [id number] [address] [place] [address], [place] [address] Oct, [facility] [address] [id number] [address] [place] [address], [place] [address] Oct, [facility] [address] [id number] [address] [place] [address], [place] [address] Oct, [facility] [address] [id number] [address] [place] [address], [place] [address] Oct, [facility] [address] [id number] [address] [place] [address], [place] [address] Sep, [facility] [address] [id number] [address] [place] [address], [place] [address] Sep, [facility] [address] [id number] [address] [place] [address], [place] [address] Aug, [facility] [address] [id number] [address] [place] [address], [place] [address] Aug, [facility] [address] [id number] [address] [place] [address], [place] [address] Aug, [facility] [address] [id number] [address] [place] [address], [place] [address] Aug, [facility] [address] [id number] [address] [place] [address], [place] [address] Aug, [facility] [address] [id number] [address] [place] [phone] Aug, [facility] [address] [id number] [address] [place] [address], [place] [address] Jul, [facility] [address] [id number] [address] [place] [address], [place] [address] Jul, [facility] [address] [id number] [address] [place] [address], [place] [address] Jun, [facility] [address] [id number] [address] [place] [address] Jun, [facility] [address] [id number] [address] [place] [address], [place] [address] Jun, [facility] [address] [id number] [address] [place] [address], [place] [address] Jun, [facility] [address] [id number] [address] [place] [address], [place] [address] May, [facility] [address] [id number] [address] [place] [address], [place] [address] May, [facility] [address] [id number] [address] [place] [address], [place] [address] Apr, [facility] [address] [id number] [address] [place] [address], [place] [address] Apr, [facility] [address] [id number] [address] [place] [address], [place] [address] Mar, [facility] [address] [id number] [address] [place] [address], [place] [address] Mar, [facility] [address] [id number] [address] [place] [address], [place] [address] Feb, [facility] [address] [id number] [address] [place] [address], [place] [address] Feb, [facility] [address] [id number] [address] [place] [address], [place] [address] Feb, [facility] [address] [id number] [address] [place] [address], [place] [address] Feb, [facility] [address] [id number] [address] [place] [address], [place] [address] Jan, [facility] [address] [id number] [address] [place] [address], [place] [address] Jan, [facility] [address] [id number] [address] [place] [address], [place] [address] Jan, [facility] [address] [id number] [address] [place] [address], [place] [address] Jan, [facility] [address] [id number] [address] [place] [address], [place] [address] December, [facility] [address] [id number] [address] [place] [address], [place] [address] December, [facility] [address] [id number] [address] [place] [address], [place] [address] December, [facility] [address] [id number] [address] [place] [address], [place] [address] December, [facility] [address] [id number] [address] [place] [address], [place] [address] Nov, [facility] [address] [id number] [address] [place] [address], [place] [address] Nov, [facility] [address] [id number] [address] [place] [address], [place] [address] Oct, [facility] [address] [id number] [address] [place] [address], [place] [address] Oct, [facility] [address] [id number] [address] [place] [address], [place] [address] Sep, [facility] [address] [id number] [address] [place] [address], [place] [address] Sep, [facility] [address] [id number] [address] [place] [address], [place] [address] Aug, [facility] [address] [id number] [address] [place] [address], [place] [address] Aug, [facility] [address] [id number] [address] [place] [address], [place] [address] Jul, [facility] [address] [id number] [address] [place] [address], [place] [address] Jul, [facility] [address] [id number] [address] [place] [address], [place] [address] Jun, [facility] [address] [id number] [address] [place] [address], [place] [address] Jun, [facility] [address] [id number] [address] [place] [address], [place] [address] Jun, [facility] [address] [id number] [address] [place] [address], [place] [address] Jun, [facility] [address] [id number] [address] [place] [address], [place] [address] May, [facility] [address] [id number] [address] [place] [address], [place] [address] May, [facility] [address] [id number] [address] [place] [address], [place] [address] May, [facility] [address] [id number] [address] [place] [address], [place] [address] Apr, [facility] [address] [id number] [address] [place] [address], [place] [address] Mar, [facility] [address] [id number] [address] [place] [address], [place] [address] Mar, [facility] [address] [id number] [address] [place] [address], [place] [address] Mar, [facility] [address] [id number] [address] [place] [address], [place] [address] Mar, [facility] [address] [id number] [address] [place] [address], [place] [address] Feb, [facility] [address] [id number] [address] [place] [address], [place] [address] Feb, [facility] [address] [id number] [address] [place] [address], [place] [address] Feb, [facility] [address] [id number] [address] [place] [address], [place] [address] Jan, [facility] [address] [id number] [address] [place] [address], [place] [address] 04 Jan, 2013 [facility] [address] [id number] [address] [place] [address], [place] [address] December, [facility] [address] [id number] [address] [place] [address], [place] [address] Nov, [facility] [address] [id number] [address] [place] [address], [place] [address] Nov, [facility] [address] [id number] [address] [place] [address], [place] [address] Oct, [facility] [address] [id number] [address] [place] [address], [place] [address] Oct, [facility] [address] [id number] [address] [place] [address], [place] [address] Oct, [facility] [address] [id number] [address] [place] [address], [place] [address] Sep, [facility] [address] [id number] [address] [place] [address], [place] [address] Sep, [facility] [address] [id number] [address] [place] [address], [place] [address] Aug, [facility] [address] [id number] [address] [place] [address], [place] [address] Jun, [facility] [address] [id number] [address] [place] [address], [place] [address] Jun, [facility] [address] [id number] [address] [place] [address], [place] [address] Jun, [facility] [address] [id number] [address] [place] [address], [place] [address] Jun, [facility] [address] [id number] [address] [place] [address], [place] [address] Jun, [facility] [address] [id number] [address] [place] [address], [place] [address] Jun, [facility] [address] [id number] [address] [place] [address], [place] [address] Jun, [facility] [address] [id number] [address] [place] [address], [place] [address] Jun, [facility] [address] [id number] [address] [place] [address], [place] [address] May, [facility] [address] [id number] [address] [place] [address], [place] [address] May, [facility] [address] [id number] [address] [place] [address], [place] [address] May, [facility] [address] [id number] [address] [place] [address], [place] [address] May, [facility] [address] [id number] [address] [place] [address], [place] [address] May, [facility] [address] [id number] [address] [place] [address], [place] [address] May, [facility] [address] [id number] [address] [place] [address], [place] [address] Apr, [facility] [address] [id number] [address] [place] [address] Apr, [facility] [address] [id number] [address] [place] [address], [place] [address] Mar, [facility] [address] [id number] [address] [place] [address] Feb, [facility] [address] [id number] [address] [place] [address], [place] [address] Jan, [facility] [address] [id number] [address] [place] [address], [place] [address] December, [facility] [address] [id number] [address] [place] [address], [place] [address] Nov, [facility] [address] [id number] [address] [place] [id number] 24 Oct, 2011 [facility] [address] [id number] [address] [place] [address], [place] [address] 15 Oct, 2011 [facility] [address] [id number] [address] [place] [address], [place] [id number] 10 Aug, 2011 [facility] [address] [id number] [address] [place] [address], [place] [address] 22 Jul, 2011 [facility] [address] [id number] [address] [place] [address], [place] [id number] 15 Jun, 2011 [facility] [address] [id number] [address] [place] [address], [place] [address] 14 Jun, 2011 [facility] [address] [id number] [address] [place] [address], [place] [phone] 31 May, 2011 [facility] [address] [id number] [address] [place] [address], [place] [id number] 31 May, 2011 [facility] [address] [id number] [address] [place] [address], [place] [address] Aug, [facility] [address] [id number] [address] [place] [address], [place] [id number] 29 Jul, 2010 [facility] [address] [id number] [address] [place] [address], [place] [address] Jul, [facility] [address] [id number] [address] [place] [address], [place] [address] Jun, [facility] [address] [id number] [address] [place] [address], [place] [address] 17 Jun, 2010 [facility] [address] [id number] [address] [place] [address], [place] [address] Jun, [facility] [address] [id number] [address] [place] [address], [place] [id number] 04 Jun, 2010 [facility] [address] [id number] [address] [place] [address], [place] [address] Jun, [facility] [address] [facility] [id number] [address] [place] [address] 18 May, 2010 [facility] [address] [facility] [id number] [address] [place] [id number] 15 May, 2010 [facility] [address] [facility] [id number] [address] [place] [id number] 15 May, 2010 IMMUNIZATIONS No Known Immunizations SOCIAL HISTORY Never Assessed REASON FOR VISIT Blood in stool - sick severe nerve pain/ severe chills - [employer] RIOS, bad kidney p ain x 2 1/2 months [employer] RIOS, needs work note - from friday to today [employer] Jerome, blurry vision and migraines - constant pain on top of scalp [employer] Rios genita ls are painful and sensative after using restroom / but has loose stools [employer]t Jerome, lost weight 225-202 with in 2 weeks [employer]t RIOS PLAN OF CARE Activity Details Follow Up prn Reason: VITAL SIGNS Height 69 in 2018-07-13 Weight 210.3 lbs 2018-07-13 Temperature 96.9 degrees Fahrenheit 2018-07-13 Heart Rate 106 bpm 2018-07-13 Respiratory Rate 20 2018-07-13 BMI 31.05 kg/m2 2018-07-13 Blood pressure systolic 126 mmHg 2018-07-13 Blood pressure diastolic 84 mmHg 2018-07-13 MEDICATIONS Medication Instructions Dosage Frequency Start Date End Date Duration S tatus ZyrTEC Active ibuprofen Active Hydrocortisone Anuj-Pramoxine 1-1 % Rectal Three times a day 1 application to affected area as needed 8h Jun, 14 days Acti ve Methylphenidate HCl 20 MG Orally daily 1 tablet morni ng and 0.5 tab in afternoon 24h 13 Jun, 2018 28 days Active RESULTS Name Result Date Reference Range UA LONG DIP (IN HOUSE) 2018-07-13 Lot # [id number] Exp date Clarity slight/cloudy Color orange Odor yes GLU neg ARNULFO neg KET neg SG 1.025 BLO trace pH 7.0 Protein trace URO 0.2 NIT neg POPPY trace Lot # Exp date Xray : KUB (IN HOUSE) 2018-07-13 PROCEDURES Procedure Date Ordered Result Body Site URINALYSIS, AUTO, W/O SCOPE Jul 13, 2018 X-RAY EXAM ABDOMEN 1 VIEW Jul 13, 2018 INSTRUCTIONS MEDICATIONS ADMINISTERED No Known Medications MEDICAL (GENERAL) HISTORY Type Description Date Medical History attention deficit hyperactivity disorder Hospitalization History [facility] Pneumonia 04/2016
--- OUTSIDE RECORDS SUMMARY | 2020-02-16 14:18 | XMS REPORT ---
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 Name Role Phone Migration, Doctor Unavailable Unavailable PROBLEMS Type Condition ICD9-CM Code [id number] Code Onset Dates Condition S tatus SNOMED Code Problem Attention deficit hyperactiv ity disorder (ADHD), predominantly inattentive type F90.0 Active 34577134 Problem Adjustment disorder with anxiety F43.22 Active 97859263 Problem Attention deficit hyperactivity disorder (ADHD), combi david type F90.2 Active [id number] Problem Mood disorder F39 Active 488756 [id number] ALLERGIES No Information ENCOUNTERS Encounter Location Date Diagnosis [place] [address] [place] [id number] [address] [place] [address] Jan, [place] [address] [place] [id number] [address] [place] [address] Aug, Blood in stool K92.1 and His tory of hemorrhoids Z87.19 [place] [address] [place] [id number] [address] [place] [address] Jul, Attention deficit hyperactiv ity disorder (ADHD), combined type F90.2 [place] [address] [place] [id number] [address] [place] [address] Jul, Attention deficit hyperactiv ity disorder (ADHD), combined type F90.2 and Adjustment disorder with anxiety F43.22 [facility] [address] [facility] [id number] [address] [place] [address] Jun, Bloody stools K92.1 and Acut e bilateral low back pain without sciatica M54.5 [facility] [address] [place] [id number] [address] [place] [address] 08 Jun, 2018 Attention deficit hyperactiv ity disorder (ADHD), combined type F90.2 [place] [address] [place] [id number] [address] [place] [phone] 15 May, 2018 Attention deficit hyperactiv ity disorder (ADHD), combined type F90.2 [facility] [address] [facility] [id number] [address] [place] [address] 10 Apr, 2018 Attention deficit hyperactiv ity disorder (ADHD), combined type F90.2 [facility] [address] [facility] [id number] [address] [place] [address] Mar, Attention deficit hyperactiv ity disorder (ADHD), combined type F90.2 [facility] [address] [facility] [id number] [address] [place] [address] Mar, Attention deficit hyperactiv ity disorder (ADHD), combined type F90.2 [facility] [address] [facility] [id number] [address] [place] [address] Mar, Attention deficit hyperactiv ity disorder (ADHD), combined type F90.2 and High risk medication use Z79.899 [facility] [address] [place] [place] [id number] [address] [place] [address] Mar, Gastroenteritis K52.9 [facility] [address] [place] [id number] [address] [place] [address] Feb, Attention deficit hyperactiv ity disorder (ADHD), combined type F90.2 [facility] [address] [place] [id number] [address] [place] [address] 05 Jan, 2018 Attention deficit hyperactiv ity disorder (ADHD), combined type F90.2 and High risk medication use Z79.899 [place] [address] [place] [id number] 13 Sep, 2017 Acute cystitis without hematuria N30.00 and Acute suppurative otitis media of left ear with spontaneous rupture of tympanic membrane, recurrence not specified H66.012 [place] [address] [place], [place] [id number] 57 Jul, Seborrheic keratoses L82.1 and Mood disorder F39 [place] [address] [place] [id number] 57 Jul, Attention deficit hyperactivity disorder (ADHD), predominantly inattentive 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 [facility] [address] [place] [place] [id number] 57 Jul, Mood disorder F39 [facility] [address] [facility] [id number] [address] [place] [address] Sep, [facility] [address] [facility] [id number] [address] [place] [address] Aug, [facility] [address] [facility] [id number] [address] [place] [address] Jul, [facility] [address] [facility] [id number] [address] [place] [address] Jul, [facility] [address] [facility] [id number] [address] [place] [address] Jun, Attention deficit hyperactiv ity disorder (ADHD), combined type F90.2 [facility] [address] [facility] [id number] [address] [place] [address] May, [facility] [address] [facility] [id number] [address] [place] [address] Apr, Attention deficit hyperactiv ity disorder (ADHD), combined type F90.2 [facility] [address] [facility] [id number] [address] [place] [address] Mar, Acute non-recurrent maxillar y sinusitis J01.00 [facility] [address] [facility] [id number] [address] [place] [address] Mar, Acute non-recurrent maxillar y sinusitis J01.00 [facility] [address] [facility] [id number] [address] [place] [address] Mar, [facility] [address] [facility] [id number] [address] [place] [address] Feb, Gastroenteritis K52.9 [facility] [address] [facility] [id number] [address] [place] [address] Feb, [facility] [address] [id number] [address] [place] [address] Jan, [facility] [address] [facility] [id number] [address] [place] [address] December, [facility] [address] [facility] [id number] [address] [place] [address] December, Rash R21 [facility] [address] [facility] [id number] [address] [place] [address] Nov, [facility] [address] [id number] [address] [place] [address] Nov, [facility] [address] [facility] [id number] [address] [place] [address] Oct, [facility] [address] [facility] [id number] [address] [place] [address] Oct, Attention deficit hyperactiv ity disorder (ADHD), combined type F90.2 [facility] [address] [facility] [id number] [address] [place] [address] Sep, [facility] [address] [facility] [id number] [address] [place] [address] Sep, Viral syndrome B34.9 and HSV (herpes simplex virus) infection B00.9 [facility] [address] [facility] [id number] [address] [place] [address] Aug, [facility] [address] [facility] [id number] [address] [place] [address] Aug, [facility] [address] [facility] [id number] [address] [place] [address] Jul, [facility] [address] [facility] [id number] [address] [place] [address] Jun, Gastroenteritis K52.9 [facility] [address] [facility] [id number] [address] [place] [address] Jun, [facility] [address] [facility] [id number] [address] [place] [address] Jun, Attention deficit hyperactiv ity disorder (ADHD), combined type F90.2 [facility] [address] [facility] [id number] [address] [place] [address] Jun, [facility] [address] [facility] [id number] [address] [place] [address] May, 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 [facility] [address] [facility] [id number] [address] [place] [address] May, [facility] [address] [facility] [id number] [address] [place] [address] Apr, [facility] [address] [facility] [id number] [address] [place] [address] Mar, [facility] [address] [facility] [id number] [address] [place] [address] Feb, [facility] [address] [facility] [id number] [address] [place] [address] Jan, Poison janneth 692.6 [facility] [address] [place] [id number] [address] [place] [address] Jan, Attention deficit disorder ( ADD) 314.00 [facility] [address] [facility] [id number] [address] [place] [address] Jan, [facility] [address] [facility] [id number] [address] [place] [address] Jan, Poison janneth dermatitis 692.6 [facility] [address] [facility] [id number] [address] [place] [address] December, [facility] [address] [facility] [id number] [address] [place] [address] Nov, [facility] [address] [facility] [id number] [address] [place] [phone] Nov, [facility] [address] [id number] [address] [place] [address], [place] [address] 13 Oct, 2014 [facility] [address] [id number] [address] [place] [address], [place] [address] 13 Oct, 2014 [facility] [address] [id number] [address] [place] [address], [place] [address] Oct, [facility] [address] [id number] [address] [place] [address], [place] [address] Oct, [facility] [address] [id number] [address] [place] [address], [place] [address] Oct, [facility] [address] [id number] [address] [place] [address], [place] [address] 05 Oct, 2014 [facility] [address] [id number] [address] [place] [address], [place] [address] Oct, [facility] [address] [id number] [address] [place] [address], [place] [address] Oct, [facility] [address] [id number] [address] [place] [address], [place] [address] Sep, [facility] [address] [id number] [address] [place] [address], [place] [address] Sep, [facility] [address] [id number] [address] [place] [address], [place] [address] Aug, [facility] [address] [id number] [address] [place] [address], [place] [address] Aug, [facility] [address] [id number] [address] [place] [address], [place] [address] Aug, [facility] [address] [id number] [address] [place] [address], [place] [address] Aug, [facility] [address] [id number] [address] [place] [address], [place] [address] Aug, [facility] [address] [id number] [address] [place] [address], [place] [address] Aug, [facility] [address] [id number] [address] [place] [address], [place] [address] Jul, [facility] [address] [id number] [address] [place] [address], [place] [address] Jul, [facility] [address] [id number] [address] [place] [address], [place] [address] Jun, [facility] [address] [id number] [address] [place] [address], [place] [address] Jun, [facility] [address] [id number] [address] [place] [address], [place] [address] Jun, [facility] [address] [id number] [address] [place] [address], [place] [address] Jun, [facility] [address] [id number] [address] [place] [address], [place] [address] May, [facility] [address] [id number] [address] [place] [address], [place] [address] May, [facility] [address] [id number] [address] [place] [address], [place] [address] Apr, [facility] [address] [id number] [address] [place] [address], [place] [address] Apr, [facility] [address] [id number] [address] [place] [address], [place] [address] Mar, [facility] [address] [id number] [address] [place] [address], [place] [address] Mar, [facility] [address] [id number] [address] [place] [address], [place] [address] Feb, [facility] [address] [id number] [address] [place] [address], [place] [address] Feb, [facility] [address] [id number] [address] [place] [address], [place] [address] Feb, [facility] [address] [id number] [address] [place] [address], [place] [address] Feb, [facility] [address] [id number] [address] [place] [address], [place] [address] Jan, [facility] [address] [id number] [address] [place] [address], [place] [address] Jan, [facility] [address] [id number] [address] [place] [address], [place] [address] Jan, [facility] [address] [id number] [address] [place] [address], [place] [address] Jan, [facility] [address] [id number] [address] [place] [address], [place] [address] December, [facility] [address] [id number] [address] [place] [address], [place] [address] December, [facility] [address] [id number] [address] [place] [address], [place] [address] December, [facility] [address] [id number] [address] [place] [address], [place] [address] December, [facility] [address] [id number] [address] [place] [address], [place] [address] Nov, [facility] [address] [id number] [address] [place] [address], [place] [address] Nov, [facility] [address] [id number] [address] [place] [address], [place] [address] Oct, [facility] [address] [id number] [address] [place] [address], [place] [address] Oct, [facility] [address] [id number] [address] [place] [address], [place] [address] Sep, [facility] [address] [id number] [address] [place] [address], [place] [address] Sep, [facility] [address] [id number] [address] [place] [address], [place] [address] Aug, [facility] [address] [id number] [address] [place] [address], [place] [address] Aug, [facility] [address] [id number] [address] [place] [address], [place] [address] Jul, [facility] [address] [id number] [address] [place] [address], [place] [address] Jul, [facility] [address] [id number] [address] [place] [address], [place] [address] Jun, [facility] [address] [id number] [address] [place] [address], [place] [address] Jun, [facility] [address] [id number] [address] [place] [address], [place] [address] Jun, [facility] [address] [id number] [address] [place] [address], [place] [address] Jun, [facility] [address] [id number] [address] [place] [address], [place] [address] May, [facility] [address] [id number] [address] [place] [address], [place] [address] May, [facility] [address] [id number] [address] [place] [address], [place] [address] May, [facility] [address] [id number] [address] [place] [address], [place] [address] Apr, [facility] [address] [id number] [address] [place] [address], [place] [address] Mar, [facility] [address] [id number] [address] [place] [address], [place] [address] Mar, [facility] [address] [id number] [address] [place] [address], [place] [address] Mar, [facility] [address] [id number] [address] [place] [address], [place] [address] Mar, [facility] [address] [id number] [address] [place] [address], [place] [address] Feb, [facility] [address] [id number] [address] [place] [address], [place] [address] Feb, [facility] [address] [id number] [address] [place] [address], [place] [address] Feb, [facility] [address] [id number] [address] [place] [address], [place] [address] Jan, [facility] [address] [id number] [address] [place] [address], [place] [address] Jan, [facility] [address] [id number] [address] [place] [address], [place] [address] December, [facility] [address] [id number] [address] [place] [address], [place] [address] Nov, [facility] [address] [id number] [address] [place] [address], [place] [address] Nov, [facility] [address] [id number] [address] [place] [address], [place] [address] Oct, [facility] [address] [id number] [address] [place] [address], [place] [address] Oct, [facility] [address] [id number] [address] [place] [address], [place] [address] Oct, [facility] [address] [id number] [address] [place] [address], [place] [address] Sep, [facility] [address] [id number] [address] [place] [address], [place] [address] Sep, [facility] [address] [id number] [address] [place] [address], [place] [address] Aug, [facility] [address] [id number] [address] [place] [address], [place] [address] Jun, [facility] [address] [id number] [address] [place] [address], [place] [address] Jun, [facility] [address] [id number] [address] [place] [address], [place] [address] Jun, [facility] [address] [id number] [address] [place] [address], [place] [address] Jun, [facility] [address] [id number] [address] [place] [address], [place] [address] Jun, [facility] [address] [id number] [address] [place] [address], [place] [address] Jun, [facility] [address] [id number] [address] [place] [address], [place] [address] Jun, [facility] [address] [id number] [address] [place] [address], [place] [address] Jun, [facility] [address] [id number] [address] [place] [address], [place] [address] May, [facility] [address] [id number] [address] [place] [address], [place] [address] May, [facility] [address] [id number] [address] [place] [address], [place] [address] May, [facility] [address] [id number] [address] [place] [address], [place] [address] May, [facility] [address] [id number] [address] [place] [address], [place] [address] May, [facility] [address] [id number] [address] [place] [address], [place] [address] May, [facility] [address] [id number] [address] [place] [address], [place] [address] Apr, [facility] [address] [id number] [address] [place] [address], [place] [address] Apr, [facility] [address] [id number] [address] [place] [address], [place] [address] Mar, [facility] [address] [id number] [address] [place] [address], [place] [address] Feb, [facility] [address] [id number] [address] [place] [address], [place] [address] Jan, [facility] [address] [id number] [address] [place] [address], [place] [address] December, [facility] [address] [id number] [address] [place] [address], [place] [address] Nov, [facility] [address] [id number] [address] [place] [address], [place] [address] Oct, [facility] [address] [id number] [address] [place] [address], [place] [address] Oct, [facility] [address] [id number] [address] [place] [address], [place] [address] Aug, [facility] [address] [id number] [address] [place] [address], [place] [address] Jul, [facility] [address] [id number] [address] [place] [address], [place] [address] Jun, [facility] [address] [id number] [address] [place] [address], [place] [address] Jun, [facility] [address] [id number] [address] [place] [address], [place] [address] May, [facility] [address] [id number] [address] [place] [address], [place] [address] May, [facility] [address] [id number] [address] [place] [address], [place] [address] Aug, [facility] [address] [id number] [address] [place] [address], [place] [address] 29 Jul, 2010 [facility] [address] [id number] [address] [place] [address], [place] [address] Jul, [facility] [address] [id number] [address] [place] [address], [place] [address] 17 Jun, 2010 [facility] [address] [id number] [address] [place] [id number] 17 Jun, 2010 [facility] [address] [facility] [id number] [address] [place] [address] Jun, [facility] [address] [facility] [id number] [address] [place] [address] Jun, [facility] [address] [facility] [id number] [address] [place] [address] Jun, [facility] [address] [facility] [id number] [address] [place] [address] May, [facility] [address] [facility] [id number] [address] [place] [address] May, [facility] [address] [facility] [id number] [address] [place] [address] May, IMMUNIZATIONS No Known Immunizations SOCIAL HISTORY Never Assessed REASON FOR VISIT [facility] PLAN OF CARE VITAL SIGNS MEDICATIONS Unknown Medications RESULTS No Results PROCEDURES No Known procedures INSTRUCTIONS MEDICATIONS ADMINISTERED No Known Medications MEDICAL (GENERAL) HISTORY Type Description Date Medical History attention deficit hyperactivity disorder Surgical History No Surgical history information Hospitalization History [facility] P[facility] 04/2016
--- OUTSIDE RECORDS SUMMARY | 2020-02-16 14:18 | XMS REPORT ---
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 Name Role Phone Migration, Doctor Unavailable Unavailable PROBLEMS Type Condition ICD9-CM Code [id number] Code Onset Dates Condition S tatus SNOMED Code Problem Attention deficit hyperactiv ity disorder (ADHD), predominantly inattentive type F90.0 Active 50526323 Problem Adjustment disorder with anxiety F43.22 Active 98381580 Problem Attention deficit hyperactivity disorder (ADHD), combi david type F90.2 Active 873518809 Problem Mood disorder F39 Active 954801 05 ALLERGIES No Information ENCOUNTERS Encounter Location Date Diagnosis [place] [address] [address] 02 Aug, 2018 Blood in stool K92.1 and His tory of hemorrhoids Z87.19 [place] [address] [address] Jul, Attention deficit hyperactiv ity disorder (ADHD), combined type F90.2 [place] [address] [place] [id number] [place] [address] Jul, Attention deficit hyperactiv ity disorder (ADHD), combined type F90.2 and Adjustment disorder with anxiety F43.22 [place] [address] [place] [id number] [place] [address] Jun, Bloody stools K92.1 and Acut e bilateral low back pain without sciatica M54.5 [place] [address] [place] [id number] [place] [address] 08 Jun, 2018 Attention deficit hyperactiv ity disorder (ADHD), combined type F90.2 [place] [address] [place] [id number] [address] [place] [address] May, Attention deficit hyperactiv ity disorder (ADHD), combined type F90.2 [facility] [address] [facility] [id number] [address] [place] [address] Apr, Attention deficit hyperactiv ity disorder (ADHD), combined type F90.2 [facility] [address] [facility] [id number] [address] [place] [address] Mar, Attention deficit hyperactiv ity disorder (ADHD), combined type F90.2 [facility] [address] [facility] [id number] [address] [place] [address] Mar, Attention deficit hyperactiv ity disorder (ADHD), combined type F90.2 [facility] [address] [facility] [id number] [address] [place] [address] Mar, Attention deficit hyperactiv ity disorder (ADHD), combined type F90.2 and High risk medication use Z79.899 [facility] [address] [facility] [id number] [address] [place] [address] Mar, Gastroenteritis K52.9 [facility] [address] [facility] [id number] [address] [place] [address] Feb, Attention deficit hyperactiv ity disorder (ADHD), combined type F90.2 [facility] [address] [facility] [id number] [address] [place] [address] Jan, Attention deficit hyperactiv ity disorder (ADHD), combined type F90.2 and High risk medication use Z79.899 [place] [address] [place] [id number] 13 Sep, 2017 Acute cystitis without hematuria N30.00 and Acute suppurative otitis media of left ear with spontaneous rupture of tympanic membrane, recurrence not specified H66.[address] [id number] Jul, Seborrheic keratoses L82.1 and Mood disorder F39 [address] [id number] Jul, Attention deficit hyperactivity disorder (ADHD), predominantly inattentive type F90.[address] [id number] Jul, Mood disorder F39 [facility] [address] [id number] [address] [place] [address] Sep, [facility] [address] [facility] [id number] [address] [place] [address] Aug, [facility] [address] [facility] [id number] [address] [place] [address] Jul, [facility] [address] [id number] [address] [place] [address] Jul, [facility] [address] [id number] [address] [place] [address] Jun, Attention deficit hyperactiv ity disorder (ADHD), combined type F90.2 [facility] [address] [facility] [id number] [address] [place] [address] May, [facility] [address] [facility] [id number] [address] [place] [address] Apr, Attention deficit hyperactiv ity disorder (ADHD), combined type F90.2 [facility] [address] [id number] [address] [place] [address] Mar, Acute non-recurrent maxillar y sinusitis J01.00 [facility] [address] [facility] [id number] [address] [place] [address] Mar, Acute non-recurrent maxillar y sinusitis J01.00 [facility] [address] [facility] [id number] [address] [place] [address] Mar, [facility] [address] [facility] [id number] [address] [place] [address] Feb, Gastroenteritis K52.9 [facility] [address] [facility] [id number] [address] [place] [address] Feb, [facility] [address] [facility] [id number] [address] [place] [address] Jan, [facility] [address] [id number] [address] [place] [address] December, [facility] [address] [facility] [id number] [address] [place] [address] December, Rash R21 [facility] [address] [facility] [id number] [address] [place] [address] Nov, [facility] [address] [facility] [id number] [address] [place] [address] Nov, [facility] [address] [facility] [id number] [address] [place] [address] Oct, [facility] [address] [facility] [id number] [address] [place] [address] Oct, Attention deficit hyperactiv ity disorder (ADHD), combined type F90.2 [facility] [address] [facility] [id number] [address] [place] [address] Sep, [facility] [address] [facility] [id number] [address] [place] [address] Sep, Viral syndrome B34.9 and HSV (herpes simplex virus) infection B00.9 [facility] [address] [facility] [id number] [address] [place] [address] Aug, [facility] [address] [facility] [id number] [address] [place] [address] Aug, [facility] [address] [facility] [id number] [address] [place] [address] Jul, [facility] [address] [facility] [id number] [address] [place] [address] Jun, Gastroenteritis K52.9 [facility] [address] [facility] [id number] [address] [place] [address] Jun, [facility] [address] [facility] [id number] [address] [place] [address] Jun, Attention deficit hyperactiv ity disorder (ADHD), combined type F90.2 [facility] [address] [id number] [address] [place] [address] Jun, [facility] [address] [id number] [address] [place] [address] May, 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 [facility] [address] [id number] [address] [place] [address] May, [facility] [address] [id number] [address] [place] [address] Apr, [facility] [address] [id number] [address] [place] [address] Mar, [facility] [address] [facility] [id number] [address] [place] [address] Feb, [facility] [address] [id number] [address] [place] [address] Jan, Poison janneth 692.6 [facility] [address] [id number] [address] [place] [address] Jan, Attention deficit disorder ( ADD) 314.00 [facility] [address] [facility] [id number] [address] [place] [address] Jan, [facility] [address] [facility] [id number] [address] [place] [address] Jan, Poison janneth dermatitis 692.6 [facility] [address] [facility] [id number] [address] [place] [address] December, [facility] [address] [facility] [id number] [address] [place] [address] Nov, [facility] [address] [facility] [id number] [address] [place] [address] Nov, [facility] [address] [facility] [id number] [address] [place] [address] Oct, [facility] [address] [id number] [address] [place] [address], [place] [address] 13 Oct, 2014 [facility] [address] [id number] [address] [place] [address], [place] [address] Oct, [facility] [address] [id number] [address] [place] [address], [place] [address] Oct, [facility] [address] [id number] [address] [place] [address], [place] [address] Oct, [facility] [address] [id number] [address] [place] [address], [place] [address] Oct, [facility] [address] [id number] [address] [place] [address], [place] [address] Oct, [facility] [address] [id number] [address] [place] [address], [place] [address] Oct, [facility] [address] [id number] [address] [place] [address], [place] [address] Sep, [facility] [address] [id number] [address] [place] [address], [place] [address] Sep, [facility] [address] [id number] [address] [place] [address], [place] [address] Aug, [facility] [address] [id number] [address] [place] [address], [place] [address] Aug, [facility] [address] [id number] [address] [place] [address], [place] [address] Aug, [facility] [address] [id number] [address] [place] [address], [place] [address] Aug, [facility] [address] [id number] [address] [place] [address], [place] [address] Aug, [facility] [address] [id number] [address] [place] [address], [place] [address] Aug, [facility] [address] [id number] [address] [place] [address], [place] [address] Jul, [facility] [address] [id number] [address] [place] [address], [place] [address] Jul, [facility] [address] [id number] [address] [place] [address], [place] [address] Jun, [facility] [address] [id number] [address] [place] [address], [place] [address] Jun, [facility] [address] [id number] [address] [place] [address], [place] [address] Jun, [facility] [address] [id number] [address] [place] [address], [place] [address] Jun, [facility] [address] [id number] [address] [place] [address], [place] [address] May, [facility] [address] [id number] [address] [place] [address], [place] [address] May, [facility] [address] [id number] [address] [place] [address], [place] [address] Apr, [facility] [address] [id number] [address] [place] [address], [place] [address] Apr, [facility] [address] [id number] [address] [place] [address], [place] [address] Mar, [facility] [address] [id number] [address] [place] [address], [place] [address] Mar, [facility] [address] [id number] [address] [place] [address], [place] [address] Feb, [facility] [address] [id number] [address] [place] [address], [place] [address] Feb, [facility] [address] [id number] [address] [place] [address], [place] [address] Feb, [facility] [address] [id number] [address] [place] [address], [place] [address] Feb, [facility] [address] [id number] [address] [place] [address], [place] [address] Jan, [facility] [address] [id number] [address] [place] [address], [place] [address] Jan, [facility] [address] [id number] [address] [place] [address], [place] [address] Jan, [facility] [address] [id number] [address] [place] [address], [place] [address] Jan, [facility] [address] [id number] [address] [place] [address], [place] [address] December, [facility] [address] [id number] [address] [place] [address], [place] [address] December, [facility] [address] [id number] [address] [place] [address], [place] [address] December, [facility] [address] [id number] [address] [place] [address], [place] [address] December, [facility] [address] [id number] [address] [place] [address], [place] [address] Nov, [facility] [address] [id number] [address] [place] [address], [place] [address] Nov, [facility] [address] [id number] [address] [place] [address], [place] [address] Oct, [facility] [address] [id number] [address] [place] [address], [place] [address] Oct, [facility] [address] [id number] [address] [place] [address], [place] [address] Sep, [facility] [address] [id number] [address] [place] [address], [place] [address] Sep, [facility] [address] [id number] [address] [place] [address], [place] [address] Aug, [facility] [address] [id number] [address] [place] [address], [place] [address] Aug, [facility] [address] [id number] [address] [place] [address], [place] [address] Jul, [facility] [address] [id number] [address] [place] [address], [place] [address] Jul, [facility] [address] [id number] [address] [place] [address], [place] [address] Jun, [facility] [address] [id number] [address] [place] [address], [place] [address] Jun, [facility] [address] [id number] [address] [place] [address], [place] [address] Jun, [facility] [address] [id number] [address] [place] [address], [place] [address] Jun, [facility] [address] [id number] [address] [place] [address], [place] [address] May, [facility] [address] [id number] [address] [place] [address], [place] [address] May, [facility] [address] [id number] [address] [place] [address], [place] [address] May, [facility] [address] [id number] [address] [place] [address], [place] [address] Apr, [facility] [address] [id number] [address] [place] [address], [place] [address] Mar, [facility] [address] [id number] [address] [place] [address], [place] [address] Mar, [facility] [address] [id number] [address] [place] [address], [place] [address] Mar, [facility] [address] [id number] [address] [place] [address], [place] [address] Mar, [facility] [address] [id number] [address] [place] [address], [place] [address] Feb, [facility] [address] [id number] [address] [place] [address], [place] [address] Feb, [facility] [address] [id number] [address] [place] [address], [place] [address] Feb, [facility] [address] [id number] [address] [place] [address], [place] [address] Jan, [facility] [address] [id number] [address] [place] [address], [place] [address] Jan, [facility] [address] [id number] [address] [place] [address], [place] [address] December, [facility] [address] [id number] [address] [place] [address], [place] [address] Nov, [facility] [address] [id number] [address] [place] [address], [place] [address] Nov, [facility] [address] [id number] [address] [place] [address], [place] [address] Oct, [facility] [address] [id number] [address] [place] [address], [place] [address] Oct, [facility] [address] [id number] [address] [place] [address], [place] [address] Oct, [facility] [address] [id number] [address] [place] [address], [place] [address] Sep, [facility] [address] [id number] [address] [place] [address], [place] [address] Sep, [facility] [address] [id number] [address] [place] [address], [place] [address] Aug, [facility] [address] [id number] [address] [place] [address], [place] [address] Jun, [facility] [address] [id number] [address] [place] [address], [place] [address] Jun, [facility] [address] [id number] [address] [place] [address], [place] [address] Jun, [facility] [address] [id number] [address] [place] [address], [place] [address] Jun, [facility] [address] [id number] [address] [place] [address], [place] [address] Jun, [facility] [address] [id number] [address] [place] [address], [place] [address] Jun, [facility] [address] [id number] [address] [place] [address], [place] [address] Jun, [facility] [address] [id number] [address] [place] [address], [place] [address] Jun, [facility] [address] [id number] [address] [place] [address], [place] [address] May, [facility] [address] [id number] [address] [place] [address], [place] [address] May, [facility] [address] [id number] [address] [place] [address], [place] [address] May, [facility] [address] [id number] [address] [place] [address], [place] [address] May, [facility] [address] [id number] [address] [place] [address], [place] [address] May, [facility] [address] [id number] [address] [place] [address], [place] [address] May, [facility] [address] [id number] [address] [place] [address], [place] [address] 08 Apr, 2012 [facility] [address] [id number] [address] [place] [address], [place] [address] Apr, [facility] [address] [id number] [address] [place] [address], [place] [address] Mar, [facility] [address] [id number] [address] [place] [address], [place] [address] Feb, [facility] [address] [id number] [address] [place] [address], [place] [address] Jan, [facility] [address] [id number] [address] [place] [address], [place] [address] December, [facility] [address] [id number] [address] [place] [address], [place] [address] Nov, [facility] [address] [id number] [address] [place] [address], [place] [address] Oct, [facility] [address] [id number] [address] [place] [address], [place] [address] 15 Oct, 2011 [facility] [address] [id number] [address] [place] [address], [place] [address] Aug, [facility] [address] [id number] [address] [place] [address], [place] [address] Jul, [facility] [address] [id number] [address] [place] [address], [place] [address] Jun, [facility] [address] [id number] [address] [place] [address], [place] [address] Jun, [facility] [address] [id number] [address] [place] [address], [place] [address] May, [facility] [address] [id number] [address] [place] [address], [place] [address] May, [facility] [address] [id number] [address] [place] [address], [place] [address] Aug, [facility] [address] [id number] [address] [place] [address], [place] [address] Jul, [facility] [address] [id number] [address] [place] [address], [place] [address] Jul, [facility] [address] [id number] [address] [place] [address], [place] [address] Jun, [facility] [address] [id number] [address] [place] [address], [place] [address] 17 Jun, 2010 [facility] [address] [id number] [address] [address] Jun, [facility] [address] [id number] [address] [place] [address] Jun, [facility] [address] [id number] [address] [place] [address] Jun, [facility] [address] [id number] [address] [place] [address] May, [facility] [address] [id number] [address] [place] [address] May, [facility] [address] [id number] [address] [place] [address] May, IMMUNIZATIONS No Known Immunizations SOCIAL HISTORY Never Assessed REASON FOR VISIT [facility] [place] PLAN OF CARE VITAL SIGNS MEDICATIONS Medication Instructions Dosage Frequency Start Date End Date Duration S tatus Azithromycin 250 mg 2 Tablet by Oral rou te on day 1 then take 1 daily for 8 days Mar, Active Doxycycline Hyclate 100 mg 1 tablet by Oral rout e 2 times per day for 10 days May, Active Naprosyn 500 mg 1 tablet by Oral route 2 times per day pc Oct, Active PredniSONE 20 mg 2 tablet by Oral route 1 time per day for 5 day(s) May, Active Methylphenidate 20 mg take 1 tablet (20 mg) by oral route 2 times per day for ADHD Aug, Active PredniSONE 10 mg 1 tablet by Oral rou te 2 times per day for 5 days as directed- suggested dosing is 8 am and 12 noon Mar, Active RESULTS No Results PROCEDURES No Known procedures INSTRUCTIONS MEDICATIONS ADMINISTERED No Known Medications MEDICAL (GENERAL) HISTORY Type Description Date Medical History attention deficit hyperactivity disorder Surgical History No Surgical history information Hospitalization History [facility] 04/2016
--- OUTSIDE RECORDS SUMMARY | 2020-02-16 14:19 | XMS REPORT ---
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 Name Role Phone RINASERGONEELIMA Unavailable PROBLEMS Type Condition ICD9-CM Code [id number] Code Onset Dates Condition S tatus SNOMED Code Problem Attention deficit hyperactiv ity disorder (ADHD), predominantly inattentive type F90.0 Active 71392439 Problem Mood disorder F39 Active 855855 05 Problem Attention deficit hyperactivity disorder (ADHD), combi david type F90.2 Active [id number] ALLERGIES No Information ENCOUNTERS Encounter Location Date Diagnosis [facility] [address] [id number] [address] [place] [address] Jun, [facility] [address] [id number] [address] [place] [address] May, [facility] [address] [id number] [address] [place] [address] May, [facility] [address] [id number] [address] [place] [address] Apr, Attention deficit hyperactiv ity disorder (ADHD), combined type F90.2 [facility] [address] [id number] [address] [place] [address] Mar, Attention deficit hyperactiv ity disorder (ADHD), combined type F90.2 [facility] [address] [facility] [id number] [address] [place] [address] Mar, Attention deficit hyperactiv ity disorder (ADHD), combined type F90.2 [facility] [address] [id number] [address] [place] [address] Mar, Attention deficit hyperactiv ity disorder (ADHD), combined type F90.2 and High risk medication use Z79.899 [facility] [address] [facility] [id number] [address] [place] [address] 14 Mar, 2018 Gastroenteritis K52.9 [facility] [address] [facility] [id number] [address] [place] [address] Feb, Attention deficit hyperactiv ity disorder (ADHD), combined type F90.2 [facility] [address] [facility] [id number] [address] [place] [address] Jan, Attention deficit hyperactiv ity disorder (ADHD), combined type F90.2 and High risk medication use Z79.[address] [id number] 13 Sep, 2017 Acute cystitis without hematuria N30.00 and Acute suppurative otitis media of left ear with spontaneous rupture of tympanic membrane, recurrence not specified H66.[address] [id number] Jul, Seborrheic keratoses L82.1 and Mood disorder F39 [address] [id number] Jul, Attention deficit hyperactivity disorder (ADHD), predominantly inattentive type F90.[address] [id number] Jul, Mood disorder F39 [facility] [address] [facility] [id number] [address] [place] [address] Sep, [facility] [address] [facility] [id number] [address] [place] [address] Aug, [facility] [address] [facility] [id number] [address] [place] [address] Jul, [facility] [address] [facility] [id number] [address] [place] [address] Jul, [facility] [address] [facility] [id number] [address] [place] [address] Jun, Attention deficit hyperactiv ity disorder (ADHD), combined type F90.2 [facility] [address] [id number] [address] [place] [address] May, [facility] [address] [id number] [address] [place] [address] Apr, Attention deficit hyperactiv ity disorder (ADHD), combined type F90.2 [facility] [address] [id number] [address] [place] [address] Mar, Acute non-recurrent maxillar y sinusitis J01.00 [facility] [address] [id number] [address] [place] [address] Mar, Acute non-recurrent maxillar y sinusitis J01.00 [facility] [address] [id number] [address] [place] [address] Mar, [facility] [address] [id number] [address] [place] [address] Feb, Gastroenteritis K52.9 [facility] [address] [id number] [address] [place] [address] Feb, [facility] [address] [id number] [address] [place] [address] Jan, [facility] [address] [id number] [address] [place] [address] December, [facility] [address] [id number] [address] [place] [address] December, Rash R21 [facility] [address] [id number] [address] [place] [address] Nov, [facility] [address] [id number] [address] [place] [address] Nov, [facility] [address] [id number] [address] [place] [address] Oct, [facility] [address] [id number] [address] [place] [address] Oct, Attention deficit hyperactiv ity disorder (ADHD), combined type F90.2 [facility] [address] [facility] [id number] [address] [place] [address] Sep, [facility] [address] [facility] [id number] [address] [place] [address] Sep, Viral syndrome B34.9 and HSV (herpes simplex virus) infection B00.9 [facility] [address] [facility] [id number] [address] [place] [address] Aug, [facility] [address] [facility] [id number] [address] [place] [address] Aug, [facility] [address] [id number] [address] [place] [address] Jul, [facility] [address] [id number] [address] [place] [address] Jun, Gastroenteritis K52.9 [facility] [address] [id number] [address] [place] [address] Jun, [facility] [address] [id number] [address] [place] [address] Jun, Attention deficit hyperactiv ity disorder (ADHD), combined type F90.2 [facility] [address] [id number] [address] [place] [address] Jun, [facility] [address] 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 [id number] [address] [place] [address] May, [facility] [address] [id number] [address] [place] [address] Apr, [facility] [address] [facility] [id number] [address] [place] [address] Mar, [facility] [address] [id number] [address] [place] [address] Feb, [facility] [address] [id number] [address] [place] [address] Jan, Poison janneth 692.6 [facility] [address] [id number] [address] [place] [address] 17 Jan, 2015 Attention deficit disorder ( ADD) 314.00 [facility] [address] [id number] [address] [place] [phone] 15 Jan, 2015 [facility] [address] [id number] [address] [place] [address] 02 Jan, 2015 Poison janneth dermatitis 692.6 [facility] [address] [id number] [address] [place] [address] December, [facility] [address] [id number] [address] [place] [address] Nov, [facility] [address] [id number] [address] [place] [phone] Nov, [facility] [address] [id number] [address] [place] [address] Oct, [facility] [address] [id number] [address] [place] [address] Oct, [facility] [address] [id number] [address] [place] [address] Oct, [facility] [address] [id number] [address] [place] [address] Oct, [facility] [address] [id number] [address] [place] [address] 05 Oct, 2014 [facility] [address] [id number] [address] [place] [phone] 05 Oct, 2014 [facility] [address] [id number] [address] [place] [phone] Oct, [facility] [address] [id number] [address] [place] [address] Oct, [facility] [address] [id number] [address] [place] [address], [place] [address] Sep, [facility] [address] [id number] [address] [place] [address], [place] [address] Sep, [facility] [address] [id number] [address] [place] [address], [place] [address] Aug, [facility] [address] [id number] [address] [place] [address], [place] [address] Aug, [facility] [address] [id number] [address] [place] [address], [place] [address] Aug, [facility] [address] [id number] [address] [place] [address], [place] [address] Aug, [facility] [address] [id number] [address] [place] [address], [place] [address] Aug, [facility] [address] [id number] [address] [place] [address], [place] [address] Aug, [facility] [address] [id number] [address] [place] [address], [place] [address] Jul, [facility] [address] [id number] [address] [place] [address], [place] [address] Jul, [facility] [address] [id number] [address] [place] [address], [place] [address] Jun, [facility] [address] [id number] [address] [place] [address], [place] [address] Jun, [facility] [address] [id number] [address] [place] [address], [place] [address] Jun, [facility] [address] [id number] [address] [place] [address], [place] [address] Jun, [facility] [address] [id number] [address] [place] [address], [place] [address] May, [facility] [address] [id number] [address] [place] [address], [place] [address] May, [facility] [address] [id number] [address] [place] [address], [place] [address] Apr, [facility] [address] [id number] [address] [place] [address], [place] [address] Apr, [facility] [address] [id number] [address] [place] [address], [place] [address] Mar, [facility] [address] [id number] [address] [place] [address], [place] [address] Mar, [facility] [address] [id number] [address] [place] [address], [place] [address] Feb, [facility] [address] [id number] [address] [place] [address], [place] [address] Feb, [facility] [address] [id number] [address] [place] [address], [place] [address] Feb, [facility] [address] [id number] [address] [place] [address], [place] [address] Feb, [facility] [address] [id number] [address] [place] [address], [place] [address] Jan, [facility] [address] [id number] [address] [place] [address], [place] [address] Jan, [facility] [address] [id number] [address] [place] [address], [place] [address] Jan, [facility] [address] [id number] [address] [place] [address], [place] [address] Jan, [facility] [address] [id number] [address] [place] [address], [place] [address] December, [facility] [address] [id number] [address] [place] [address], [place] [address] December, [facility] [address] [id number] [address] [place] [address], [place] [address] December, [facility] [address] [id number] [address] [place] [address], [place] [address] December, [facility] [address] [id number] [address] [place] [address], [place] [address] Nov, [facility] [address] [id number] [address] [place] [address], [place] [address] Nov, [facility] [address] [id number] [address] [place] [address], [place] [address] Oct, [facility] [address] [id number] [address] [place] [address], [place] [address] Oct, [facility] [address] [id number] [address] [place] [address], [place] [address] Sep, [facility] [address] [id number] [address] [place] [address], [place] [address] Sep, [facility] [address] [id number] [address] [place] [address], [place] [address] Aug, [facility] [address] [id number] [address] [place] [address], [place] [address] Aug, [facility] [address] [id number] [address] [place] [address], [place] [address] Jul, [facility] [address] [id number] [address] [place] [address], [place] [address] Jul, [facility] [address] [id number] [address] [place] [address], [place] [address] Jun, [facility] [address] [id number] [address] [place] [address], [place] [address] Jun, [facility] [address] [id number] [address] [place] [address], [place] [address] Jun, [facility] [address] [id number] [address] [place] [address], [place] [address] Jun, [facility] [address] [id number] [address] [place] [address], [place] [address] May, [facility] [address] [id number] [address] [place] [address], [place] [address] May, [facility] [address] [id number] [address] [place] [address], [place] [address] May, [facility] [address] [id number] [address] [place] [address], [place] [address] Apr, [facility] [address] [id number] [address] [place] [address], [place] [address] Mar, [facility] [address] [id number] [address] [place] [address], [place] [address] Mar, [facility] [address] [id number] [address] [place] [address], [place] [address] Mar, [facility] [address] [id number] [address] [place] [address], [place] [address] Mar, [facility] [address] [id number] [address] [place] [address], [place] [address] Feb, [facility] [address] [id number] [address] [place] [address], [place] [address] Feb, [facility] [address] [id number] [address] [place] [address], [place] [address] Feb, [facility] [address] [id number] [address] [place] [address], [place] [address] Jan, [facility] [address] [id number] [address] [place] [address], [place] [address] Jan, [facility] [address] [id number] [address] [place] [address], [place] [address] December, [facility] [address] [id number] [address] [place] [address], [place] [address] 24 Nov, 2012 [facility] [address] [id number] [address] [place] [address], [place] [address] Nov, [facility] [address] [id number] [address] [place] [address], [place] [address] Oct, [facility] [address] [id number] [address] [place] [address], [place] [address] Oct, [facility] [address] [id number] [address] [place] [address], [place] [address] Oct, [facility] [address] [id number] [address] [place] [address], [place] [address] Sep, [facility] [address] [id number] [address] [place] [address], [place] [address] Sep, [facility] [address] [id number] [address] [place] [address], [place] [address] Aug, [facility] [address] [id number] [address] [place] [address], [place] [address] Jun, [facility] [address] [id number] [address] [place] [address], [place] [address] Jun, [facility] [address] [id number] [address] [place] [address], [place] [address] Jun, [facility] [address] [id number] [address] [place] [address], [place] [address] Jun, [facility] [address] [id number] [address] [place] [address], [place] [address] Jun, [facility] [address] [id number] [address] [place] [address], [place] [address] Jun, [facility] [address] [id number] [address] [place] [address], [place] [address] Jun, [facility] [address] [id number] [address] [place] [address], [place] [address] Jun, [facility] [address] [id number] [address] [place] [address], [place] [address] May, [facility] [address] [id number] [address] [place] [address], [place] [address] May, [facility] [address] [id number] [address] [place] [address], [place] [address] May, [facility] [address] [id number] [address] [place] [address], [place] [address] May, [facility] [address] [id number] [address] [place] [address], [place] [address] May, [facility] [address] [id number] [address] [place] [address], [place] [address] May, [facility] [address] [id number] [address] [place] [address], [place] [id number] 08 Apr, 2012 [facility] [address] [id number] [address] [place] [address], [place] [address] Apr, [facility] [address] [id number] [address] [place] [address], [place] [address] Mar, [facility] [address] [id number] [address] [place] [address], [place] [id number] Feb, [facility] [address] [id number] [address] [place] [address], [place] [address] Jan, [facility] [address] [id number] [address] [place] [address], [place] [address] December, [facility] [address] [id number] [address] [place] [address], [place] [address] Nov, [facility] [address] [id number] [address] [place] [address], [place] [address] 24 Oct, 2011 [facility] [address] [id number] [address] [place] [address], [place] [address] Oct, [facility] [address] [id number] [address] [place] [address], [place] [address] Aug, [facility] [address] [id number] [address] [place] [address], [place] [address] Jul, [facility] [address] [id number] [address] [place] [phone] 15 Jun, 2011 [facility] [address] [id number] [address] [place] [phone] 14 Jun, 2011 [facility] [address] [id number] [address] [place] [phone] May, [facility] [address] [id number] [address] [place] [phone] May, [facility] [address] [id number] [address] [place] [phone] Aug, [facility] [address] [id number] [address] [place] [phone] Jul, [facility] [address] [id number] [address] [place] [phone] Jul, [facility] [address] [id number] [address] [place] [phone] Jun, [facility] [address] [id number] [address] [place] [phone] 17 Jun, 2010 [facility] [address] [id number] [address] [place] [phone] Jun, [facility] [address] [id number] [address] [place] [phone] Jun, [facility] [address] [id number] [address] [place] [phone] Jun, [facility] [address] [id number] [address] [place] [phone] May, [facility] [address] [id number] [address] [place] [phone] May, [facility] [address] [id number] [address] [place] [phone] May, IMMUNIZATIONS No Known Immunizations SOCIAL HISTORY Never Assessed REASON FOR VISIT intake PLAN OF CARE Activity Details Follow Up 4 Weeks Reason: Follow-up VITAL SIGNS MEDICATIONS Medication Instructions Dosage Frequency Start Date End Date Duration S felicia Methylphenidate HCl 20 MG Orally daily 1 tablet morni ng and 0.5 tab in afternoon 24h 14 Mar, 2018 28 days Active ZyrTEC Active ibuprofen Active RESULTS No Results PROCEDURES Procedure Date Ordered Result Body Site Psych diagnostic evaluation, established patient Apr 13, 2018 INSTRUCTIONS MEDICATIONS ADMINISTERED No Known Medications MEDICAL (GENERAL) HISTORY Type Description Date Medical History attention deficit hyperactivity disorder Hospitalization History [facility] Pneumonia 04/2016
--- OUTSIDE RECORDS SUMMARY | 2020-02-16 14:19 | XMS REPORT ---
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 Name Role Phone GLORIARONILENY Unavailable PROBLEMS Type Condition ICD9-CM Code ANY11-TN Code Onset Dates Condition S tatus SNOMED Code Problem Attention deficit hyperactiv ity disorder (ADHD), predominantly inattentive type F90.0 Active 45973179 Problem Mood disorder F39 Active 909257 05 Problem Attention deficit hyperactivity disorder (ADHD), combi david type F90.2 Active [id number] ALLERGIES No Information ENCOUNTERS Encounter Location Date Diagnosis [facility] [address] [id number] [address] [place] [id number] Jun, [facility] [address] [facility] [id number] [address] [place] [id number] 16 May, 2018 [facility] [address] [id number] [address] [place] [phone] May, [facility] [address] [id number] [address] [place] [address] Apr, Attention deficit hyperactiv ity disorder (ADHD), combined type F90.2 [facility] [address] [facility] [id number] [address] [place] [address] Mar, Attention deficit hyperactiv ity disorder (ADHD), combined type F90.2 [facility] [address] [facility] [id number] [address] [place] [address] Mar, Attention deficit hyperactiv ity disorder (ADHD), combined type F90.2 [facility] [address] [facility] [id number] [address] [place] [address] Mar, Attention deficit hyperactiv ity disorder (ADHD), combined type F90.2 and High risk medication use Z79.899 [facility] [address] [facility] [id number] [address] [place] [address] Mar, Gastroenteritis K52.9 [facility] [address] [facility] [id number] [address] [place] [address] Feb, Attention deficit hyperactiv ity disorder (ADHD), combined type F90.2 [facility] [address] [facility] [id number] [address] [place] [address] Jan, Attention deficit hyperactiv ity disorder (ADHD), combined type F90.2 and High risk medication use Z79.8[address] [place], [place] [id number] 13 Sep, 2017 Acute cystitis without hematuria N30.00 and Acute suppurative otitis media of left ear with spontaneous rupture of tympanic membrane, recurrence not specified H66.[address] [id number] Jul, Seborrheic keratoses L82.1 and Mood disorder F39 [address] [id number] Jul, Attention deficit hyperactivity disorder (ADHD), predominantly inattentive type F90.[address] [id number] Jul, Mood disorder F39 [facility] [address] [id number] [address] [place] [address] Sep, [facility] [address] [facility] [id number] [address] [place] [address] Aug, [facility] [address] [facility] [id number] [address] [place] [address] Jul, [facility] [address] [facility] [id number] [address] [place] [address] Jul, [facility] [address] [facility] [id number] [address] [place] [address] Jun, Attention deficit hyperactiv ity disorder (ADHD), combined type F90.2 [facility] [address] [id number] [address] [place] [phone] May, [facility] [address] [id number] [address] [place] [id number] Apr, Attention deficit hyperactiv ity disorder (ADHD), combined type F90.2 [facility] [address] [id number] [address] [place] [address], [place] [address] Mar, Acute non-recurrent maxillar y sinusitis J01.00 [facility] [address] [id number] [address] [place] [address], [place] [address] Mar, Acute non-recurrent maxillar y sinusitis J01.00 [facility] [address] [id number] [address] [place] [address], [place] [address] Mar, [facility] [address] [id number] [address] [place] [address] Feb, Gastroenteritis K52.9 [facility] [address] [id number] [address] [place] [address] Feb, [facility] [address] [id number] [address] [place] [address] Jan, [facility] [address] [id number] [address] [place] [address] December, [facility] [address] [id number] [address] [place] [address] December, Rash R21 [facility] [address] [id number] [address] [place] [address] Nov, [facility] [address] [id number] [address] [place] [address] Nov, [facility] [address] [id number] [address] [place] [address] Oct, [facility] [address] [id number] [address] [place] [address] Oct, Attention deficit hyperactiv ity disorder (ADHD), combined type F90.2 [facility] [address] [facility] [id number] [address] [place] [id number] Sep, [facility] [address] [facility] [id number] [address] [place] [address] Sep, Viral syndrome B34.9 and HSV (herpes simplex virus) infection B00.9 [facility] [address] [facility] [id number] [address] [place] [address] Aug, [facility] [address] [facility] [id number] [address] [place] [address] Aug, [facility] [address] [facility] [id number] [address] [place] [address] Jul, [facility] [address] [id number] [address] [place] [address] Jun, Gastroenteritis K52.9 [facility] [address] [facility] [id number] [address] [place] [address] Jun, [facility] [address] [facility] [id number] [address] [place] [address] Jun, Attention deficit hyperactiv ity disorder (ADHD), combined type F90.2 [facility] [address] [facility] [id number] [address] [place] [address] Jun, [facility] [address] [facility] [id number] [address] [place] [address] May, 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 [facility] [address] [facility] [id number] [address] [place] [address] May, [facility] [address] [facility] [id number] [address] [place] [address] Apr, [facility] [address] [facility] [id number] [address] [place] [address] Mar, [facility] [address] [facility] [id number] [address] [place] [address] Feb, [facility] [address] [id number] [address] [place] [address] Jan, Poison janneth 692.6 [facility] [address] [id number] [address] [place] [address] Jan, Attention deficit disorder ( ADD) 314.00 [facility] [address] [id number] [address] [place] [address] Jan, [facility] [address] [id number] [address] [place] [address] Jan, Poison janneth dermatitis 692.6 [facility] [address] [id number] [address] [place] [phone] December, [facility] [address] [id number] [address] [place] [address] Nov, [facility] [address] [id number] [address] [place] [address] Nov, [facility] [address] [id number] [address] [place] [id number] Oct, [facility] [address] [id number] [address] [place] [address] Oct, [facility] [address] [id number] [address] [place] [address] Oct, [facility] [address] [id number] [address] [place] [address] Oct, [facility] [address] [id number] [address] [place] [address] Oct, [facility] [address] [id number] [address] [place] [address] Oct, [facility] [address] [id number] [address] [place] [address] Oct, [facility] [address] [id number] [address] [place] [address] Oct, [facility] [address] [id number] [address] [place] [address], [place] [address] Sep, [facility] [address] [id number] [address] [place] [address], [place] [address] Sep, [facility] [address] [id number] [address] [place] [address], [place] [address] Aug, [facility] [address] [id number] [address] [place] [address], [place] [address] Aug, [facility] [address] [id number] [address] [place] [address], [place] [address] Aug, [facility] [address] [id number] [address] [place] [address], [place] [address] Aug, [facility] [address] [id number] [address] [place] [address], [place] [address] Aug, [facility] [address] [id number] [address] [place] [address], [place] [address] Aug, [facility] [address] [id number] [address] [place] [address], [place] [address] Jul, [facility] [address] [id number] [address] [place] [address], [place] [address] Jul, [facility] [address] [id number] [address] [place] [address], [place] [address] Jun, [facility] [address] [id number] [address] [place] [address], [place] [address] Jun, [facility] [address] [id number] [address] [place] [address], [place] [address] Jun, [facility] [address] [id number] [address] [place] [address], [place] [address] Jun, [facility] [address] [id number] [address] [place] [address], [place] [address] May, [facility] [address] [id number] [address] [place] [address], [place] [address] May, [facility] [address] [id number] [address] [place] [address], [place] [address] Apr, [facility] [address] [id number] [address] [place] [address], [place] [address] Apr, [facility] [address] [id number] [address] [place] [address], [place] [address] Mar, [facility] [address] [id number] [address] [place] [address], [place] [address] Mar, [facility] [address] [id number] [address] [place] [address], [place] [address] Feb, [facility] [address] [id number] [address] [place] [address], [place] [address] Feb, [facility] [address] [id number] [address] [place] [address], [place] [address] Feb, [facility] [address] [id number] [address] [place] [address], [place] [address] Feb, [facility] [address] [id number] [address] [place] [address], [place] [address] Jan, [facility] [address] [id number] [address] [place] [address], [place] [address] Jan, [facility] [address] [id number] [address] [place] [address], [place] [address] Jan, [facility] [address] [id number] [address] [place] [address], [place] [address] Jan, [facility] [address] [id number] [address] [place] [address], [place] [address] December, [facility] [address] [id number] [address] [place] [address], [place] [address] December, [facility] [address] [id number] [address] [place] [address], [place] [address] December, [facility] [address] [id number] [address] [place] [address], [place] [address] December, [facility] [address] [id number] [address] [place] [address], [place] [address] Nov, [facility] [address] [id number] [address] [place] [address], [place] [address] Nov, [facility] [address] [id number] [address] [place] [address], [place] [address] Oct, [facility] [address] [id number] [address] [place] [address], [place] [address] Oct, [facility] [address] [id number] [address] [place] [address], [place] [address] Sep, [facility] [address] [id number] [address] [place] [address], [place] [address] Sep, [facility] [address] [id number] [address] [place] [address], [place] [address] Aug, [facility] [address] [id number] [address] [place] [address], [place] [address] Aug, [facility] [address] [id number] [address] [place] [address], [place] [address] Jul, [facility] [address] [id number] [address] [place] [address], [place] [address] Jul, [facility] [address] [id number] [address] [place] [address], [place] [address] Jun, [facility] [address] [id number] [address] [place] [address], [place] [address] Jun, [facility] [address] [id number] [address] [place] [address], [place] [address] Jun, [facility] [address] [id number] [address] [place] [address], [place] [address] Jun, [facility] [address] [id number] [address] [place] [address], [place] [address] May, [facility] [address] [id number] [address] [place] [address], [place] [address] May, [facility] [address] [id number] [address] [place] [address], [place] [address] May, [facility] [address] [id number] [address] [place] [address], [place] [address] Apr, [facility] [address] [id number] [address] [place] [address], [place] [address] Mar, [facility] [address] [id number] [address] [place] [address], [place] [address] Mar, [facility] [address] [id number] [address] [place] [address], [place] [address] Mar, [facility] [address] [id number] [address] [place] [address], [place] [address] Mar, [facility] [address] [id number] [address] [place] [address], [place] [address] Feb, [facility] [address] [id number] [address] [place] [address], [place] [address] Feb, [facility] [address] [id number] [address] [place] [address], [place] [address] Feb, [facility] [address] [id number] [address] [place] [address], [place] [address] Jan, [facility] [address] [id number] [address] [place] [address], [place] [address] Jan, [facility] [address] [id number] [address] [place] [address], [place] [address] December, [facility] [address] [id number] [address] [place] [address], [place] [address] 24 Nov, 2012 [facility] [address] [id number] [address] [place] [address], [place] [address] Nov, [facility] [address] [id number] [address] [place] [address], [place] [address] Oct, [facility] [address] [id number] [address] [place] [address], [place] [address] Oct, [facility] [address] [id number] [address] [place] [address], [place] [address] Oct, [facility] [address] [id number] [address] [place] [address], [place] [address] Sep, [facility] [address] [id number] [address] [place] [address], [place] [address] Sep, [facility] [address] [id number] [address] [place] [address], [place] [address] Aug, [facility] [address] [id number] [address] [place] [address], [place] [address] Jun, [facility] [address] [id number] [address] [place] [address], [place] [address] Jun, [facility] [address] [id number] [address] [place] [address], [place] [address] Jun, [facility] [address] [id number] [address] [place] [address], [place] [address] Jun, [facility] [address] [id number] [address] [place] [address], [place] [address] Jun, [facility] [address] [id number] [address] [place] [address], [place] [address] Jun, [facility] [address] [id number] [address] [place] [address], [place] [address] Jun, [facility] [address] [id number] [address] [place] [address], [place] [address] Jun, [facility] [address] [id number] [address] [place] [address], [place] [address] May, [facility] [address] [id number] [address] [place] [address], [place] [address] May, [facility] [address] [id number] [address] [place] [address], [place] [address] May, [facility] [address] [id number] [address] [place] [address], [place] [address] May, [facility] [address] [id number] [address] [place] [address], [place] [address] May, [facility] [address] [id number] [address] [place] [address], [place] [address] May, [facility] [address] [id number] [address] [place] [address], [place] [address] 08 Apr, 2012 [facility] [address] [id number] [address] [place] [address], [place] [address] Apr, [facility] [address] [id number] [address] [place] [address], [place] [address] Mar, [facility] [address] [id number] [address] [place] [address], [place] [address] Feb, [facility] [address] [id number] [address] [place] [address], [place] [address] Jan, [facility] [address] [id number] [address] [place] [address], [place] [address] December, [facility] [address] [id number] [address] [place] [address], [place] [address] Nov, [facility] [address] [id number] [address] [place] [address], [place] [address] 24 Oct, 2011 [facility] [address] [id number] [address] [place] [address], [place] [address] Oct, [facility] [address] [id number] [address] [place] [address], [place] [address] Aug, [facility] [address] [id number] [address] [place] [address], [place] [address] Jul, [facility] [address] [id number] [address] [place] [id number] 15 Jun, 2011 [facility] [address] [id number] [address] [place] [id number] 14 Jun, 2011 [facility] [address] [id number] [address] [place] [id number] 31 May, 2011 [facility] [address] [id number] [address] [place] [id number] 31 May, 2011 [facility] [address] [id number] [address] [place] [id number] Aug, [facility] [address] [id number] [address] [place] [id number] Jul, [facility] [address] [id number] [address] [place] [id number] Jul, [facility] [address] [id number] [address] [place] [id number] Jun, [facility] [address] [id number] [address] [place] [id number] 17 Jun, 2010 [facility] [address] [id number] [address] [place] [id number] Jun, [facility] [address] [id number] [address] [place] [id number] Jun, [facility] [address] [id number] [address] [place] [id number] Jun, [facility] [address] [id number] [address] [place] [id number] 18 May, 2010 [facility] [address] [id number] [address] [place] [id number] May, [facility] [address] [id number] [address] [place] [id number] May, IMMUNIZATIONS No Known Immunizations SOCIAL HISTORY Never Assessed REASON FOR VISIT methylphenidate 03/31/2018 PLAN OF CARE VITAL SIGNS MEDICATIONS Medication Instructions Dosage Frequency Start Date End Date Duration S felicia Methylphenidate HCl 20 MG Orally daily 1 tablet morni ng and 0.5 tab in afternoon 24h Mar, 28 days Active RESULTS No Results PROCEDURES No Known procedures INSTRUCTIONS MEDICATIONS ADMINISTERED No Known Medications MEDICAL (GENERAL) HISTORY Type Description Date Medical History attention deficit hyperactivity disorder Hospitalization History [facility] Pneum[facility] 04/2016
--- OUTSIDE RECORDS SUMMARY | 2020-02-16 14:19 | XMS REPORT ---
Author Author Andrew CASTRO Organization [facility] Address [address] [place] [address] Care Team Providers Care Summer Clerk Name Role Phone GLORIARONILENY Unavailable PROBLEMS Type Condition ICD9-CM Code PPX21-VB Code Onset Dates Condition S tatus SNOMED Code Problem Attention deficit hyperactiv ity disorder (ADHD), predominantly inattentive type F90.0 Active 23051741 Problem Mood disorder F39 Active 282025 05 Problem Attention deficit hyperactivity disorder (ADHD), combi david type F90.2 Active [id number] ALLERGIES No Information ENCOUNTERS Encounter Location Date Diagnosis [facility] [address] [id number] [address] [place] [phone] Jun, [facility] [address] [id number] [address] [place] [phone] 16 May, 2018 [facility] [address] [id number] [address] [place] [phone] May, [facility] [address] [id number] [address] [place] [phone] Apr, Attention deficit hyperactiv ity disorder (ADHD), combined type F90.2 [facility] [address] [id number] [address] [place] [address] Mar, Attention deficit hyperactiv ity disorder (ADHD), combined type F90.2 [facility] [address] [id number] [address] [place] [id number] Mar, Attention deficit hyperactiv ity disorder (ADHD), combined type F90.2 [facility] [address] [id number] [address] [place] [address] Mar, Attention deficit hyperactiv ity disorder (ADHD), combined type F90.2 and High risk medication use Z79.899 [facility] [address] [id number] [address] [place] [phone] Mar, Gastroenteritis K52.9 [facility] [address] [id number] [address] [place] [phone] Feb, Attention deficit hyperactiv ity disorder (ADHD), combined type F90.2 [facility] [address] [id number] [address] [place] [address] Jan, Attention deficit hyperactiv ity disorder (ADHD), combined type F90.2 and High risk medication use Z79.[address] [place], [place] [id number] 13 Sep, 2017 Acute cystitis without hematuria N30.00 and Acute suppurative otitis media of left ear with spontaneous rupture of tympanic membrane, recurrence not specified H66.[address] [id number] Jul, Seborrheic keratoses L82.1 and Mood disorder F39 [address] [id number] Jul, Attention deficit hyperactivity disorder (ADHD), predominantly inattentive type F90.[address] [id number] Jul, Mood disorder F39 [facility] [address] [id number] [address] [place] [phone] Sep, [facility] [address] [id number] [address] [place] [phone] Aug, [facility] [address] [id number] [address] [place] [phone] Jul, [facility] [address] [id number] [address] [place] [phone] Jul, [facility] [address] [id number] [address] [place] [phone] Jun, Attention deficit hyperactiv ity disorder (ADHD), combined type F90.2 [facility] [address] [id number] [address] [place] [phone] May, [facility] [address] [id number] [address] [place] [address] Apr, Attention deficit hyperactiv ity disorder (ADHD), combined type F90.2 [facility] [address] [id number] [address] [place] [address], [place] [address] Mar, Acute non-recurrent maxillar y sinusitis J01.00 [facility] [address] [id number] [address] [place] [address], [place] [address] Mar, Acute non-recurrent maxillar y sinusitis J01.00 [facility] [address] [id number] [address] [place] [address], [place] [address] Mar, [facility] [address] [id number] [address] [place] [address] Feb, Gastroenteritis K52.9 [facility] [address] [id number] [address] [place] [phone] Feb, [facility] [address] [id number] [address] [place] [phone] Jan, [facility] [address] [id number] [address] [place] [phone] December, [facility] [address] [id number] [address] [place] [address] December, Rash R21 [facility] [address] [id number] [address] [place] [phone] Nov, [facility] [address] [id number] [address] [place] [address] Nov, [facility] [address] [id number] [address] [place] [address] Oct, [facility] [address] [id number] [address] [place] [address] Oct, Attention deficit hyperactiv ity disorder (ADHD), combined type F90.2 [facility] [address] [id number] [address] [place] [phone] Sep, [facility] [address] [id number] [address] [place] [phone] Sep, Viral syndrome B34.9 and HSV (herpes simplex virus) infection B00.9 [facility] [address] [id number] [address] [place] [phone] Aug, [facility] [address] [id number] [address] [place] [phone] Aug, [facility] [address] [id number] [address] [place] [phone] Jul, [facility] [address] [id number] [address] [place] [phone] Jun, Gastroenteritis K52.9 [facility] [address] [id number] [address] [place] [phone] Jun, [facility] [address] [id number] [address] [place] [phone] Jun, Attention deficit hyperactiv ity disorder (ADHD), combined type F90.2 [facility] [address] [id number] [address] [place] [phone] Jun, [facility] [address] [id number] [address] [place] [phone] May, 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 [facility] [address] [id number] [address] [place] [phone] May, [facility] [address] [id number] [address] [place] [address] Apr, [facility] [address] [id number] [address] [place] [address] Mar, [facility] [address] [id number] [address] [place] [phone] Feb, [facility] [address] [id number] [address] [place] [address] Jan, Poison janneth 692.6 [facility] [address] [id number] [address] [place] [phone] Jan, Attention deficit disorder ( ADD) 314.00 [facility] [address] [id number] [address] [place] [phone] Jan, [facility] [address] [id number] [address] [place] [address] Jan, Poison janneth dermatitis 692.6 [facility] [address] [id number] [address] [place] [phone] December, [facility] [address] [id number] [address] [place] [phone] Nov, [facility] [address] [id number] [address] [place] [phone] Nov, [facility] [address] [id number] [address] [place] [phone] Oct, [facility] [address] [id number] [address] [place] [phone] Oct, [facility] [address] [id number] [address] [place] [address] Oct, [facility] [address] [id number] [address] [place] [phone] Oct, [facility] [address] [id number] [address] [place] [phone] Oct, [facility] [address] [id number] [address] [place] [phone] Oct, [facility] [address] [id number] [address] [place] [phone] Oct, [facility] [address] [id number] [address] [place] [phone] Oct, [facility] [address] [id number] [address] [place] [address], [place] [address] Sep, [facility] [address] [id number] [address] [place] [address], [place] [address] Sep, [facility] [address] [id number] [address] [place] [address], [place] [address] Aug, [facility] [address] [id number] [address] [place] [address], [place] [address] Aug, [facility] [address] [id number] [address] [place] [address], [place] [address] Aug, [facility] [address] [id number] [address] [place] [address], [place] [address] Aug, [facility] [address] [id number] [address] [place] [address], [place] [address] Aug, [facility] [address] [id number] [address] [place] [address], [place] [address] Aug, [facility] [address] [id number] [address] [place] [address], [place] [address] Jul, [facility] [address] [id number] [address] [place] [address], [place] [address] Jul, [facility] [address] [id number] [address] [place] [address], [place] [address] Jun, [facility] [address] [id number] [address] [place] [address], [place] [address] Jun, [facility] [address] [id number] [address] [place] [address], [place] [address] Jun, [facility] [address] [id number] [address] [place] [address], [place] [address] Jun, [facility] [address] [id number] [address] [place] [address], [place] [address] May, [facility] [address] [id number] [address] [place] [address], [place] [address] May, [facility] [address] [id number] [address] [place] [address], [place] [address] Apr, [facility] [address] [id number] [address] [place] [address], [place] [address] Apr, [facility] [address] [id number] [address] [place] [address], [place] [address] Mar, [facility] [address] [id number] [address] [place] [address], [place] [address] Mar, [facility] [address] [id number] [address] [place] [address], [place] [address] Feb, [facility] [address] [id number] [address] [place] [address], [place] [address] Feb, [facility] [address] [id number] [address] [place] [address], [place] [address] Feb, [facility] [address] [id number] [address] [place] [address], [place] [address] Feb, [facility] [address] [id number] [address] [place] [address], [place] [address] Jan, [facility] [address] [id number] [address] [place] [address], [place] [address] Jan, [facility] [address] [id number] [address] [place] [address], [place] [address] Jan, [facility] [address] [id number] [address] [place] [address], [place] [address] Jan, [facility] [address] [id number] [address] [place] [address], [place] [address] December, [facility] [address] [id number] [address] [place] [address], [place] [address] December, [facility] [address] [id number] [address] [place] [address], [place] [address] December, [facility] [address] [id number] [address] [place] [address], [place] [address] December, [facility] [address] [id number] [address] [place] [address], [place] [address] Nov, [facility] [address] [id number] [address] [place] [address], [place] [address] Nov, [facility] [address] [id number] [address] [place] [address], [place] [address] Oct, [facility] [address] [id number] [address] [place] [address], [place] [address] Oct, [facility] [address] [id number] [address] [place] [address], [place] [address] Sep, [facility] [address] [id number] [address] [place] [address], [place] [address] Sep, [facility] [address] [id number] [address] [place] [address], [place] [address] Aug, [facility] [address] [id number] [address] [place] [address], [place] [address] Aug, [facility] [address] [id number] [address] [place] [address], [place] [address] Jul, [facility] [address] [id number] [address] [place] [address], [place] [address] Jul, [facility] [address] [id number] [address] [place] [address], [place] [address] Jun, [facility] [address] [id number] [address] [place] [address], [place] [address] Jun, [facility] [address] [id number] [address] [place] [address], [place] [address] Jun, [facility] [address] [id number] [address] [place] [address], [place] [address] Jun, [facility] [address] [id number] [address] [place] [address], [place] [address] May, [facility] [address] [id number] [address] [place] [address], [place] [address] May, [facility] [address] [id number] [address] [place] [address], [place] [address] May, [facility] [address] [id number] [address] [place] [address], [place] [address] Apr, [facility] [address] [id number] [address] [place] [address], [place] [address] Mar, [facility] [address] [id number] [address] [place] [address], [place] [address] Mar, [facility] [address] [id number] [address] [place] [address], [place] [address] Mar, [facility] [address] [id number] [address] [place] [address], [place] [address] Mar, [facility] [address] [id number] [address] [place] [address], [place] [address] Feb, [facility] [address] [id number] [address] [place] [address], [place] [address] Feb, [facility] [address] [id number] [address] [place] [address], [place] [address] Feb, [facility] [address] [id number] [address] [place] [address], [place] [address] Jan, [facility] [address] [id number] [address] [place] [address], [place] [address] Jan, [facility] [address] [id number] [address] [place] [address], [place] [address] December, [facility] [address] [id number] [address] [place] [address], [place] [address] 24 Nov, 2012 [facility] [address] [id number] [address] [place] [address], [place] [address] Nov, [facility] [address] [id number] [address] [place] [address], [place] [address] Oct, [facility] [address] [id number] [address] [place] [address], [place] [address] Oct, [facility] [address] [id number] [address] [place] [address], [place] [address] Oct, [facility] [address] [id number] [address] [place] [address], [place] [address] Sep, [facility] [address] [id number] [address] [place] [address], [place] [address] Sep, [facility] [address] [id number] [address] [place] [address], [place] [address] Aug, [facility] [address] [id number] [address] [place] [address], [place] [address] Jun, [facility] [address] [id number] [address] [place] [address], [place] [address] Jun, [facility] [address] [id number] [address] [place] [address], [place] [address] Jun, [facility] [address] [id number] [address] [place] [address], [place] [address] Jun, [facility] [address] [id number] [address] [place] [address], [place] [address] Jun, [facility] [address] [id number] [address] [place] [address], [place] [address] Jun, [facility] [address] [id number] [address] [place] [address], [place] [address] Jun, [facility] [address] [id number] [address] [place] [address], [place] [address] Jun, [facility] [address] [id number] [address] [place] [address], [place] [address] May, [facility] [address] [id number] [address] [place] [address], [place] [address] May, [facility] [address] [id number] [address] [place] [address], [place] [address] May, [facility] [address] [id number] [address] [place] [address], [place] [address] May, [facility] [address] [id number] [address] [place] [address], [place] [address] May, [facility] [address] [id number] [address] [place] [address], [place] [address] May, [facility] [address] [id number] [address] [place] [address], [place] [address] 08 Apr, 2012 [facility] [address] [id number] [address] [place] [address], [place] [address] Apr, [facility] [address] [id number] [address] [place] [address], [place] [address] Mar, [facility] [address] [id number] [address] [place] [address], [place] [address] Feb, [facility] [address] [id number] [address] [place] [address], [place] [address] Jan, [facility] [address] [id number] [address] [place] [address], [place] [address] December, [facility] [address] [id number] [address] [place] [address], [place] [address] Nov, [facility] [address] [id number] [address] [place] [address], [place] [address] 24 Oct, 2011 [facility] [address] [id number] [address] [place] [address], [place] [address] Oct, [facility] [address] [id number] [address] [place] [address], [place] [address] Aug, [facility] [address] [id number] [address] [place] [address], [place] [id number] Jul, [facility] [address] [id number] [address] [place] [id number] 15 Jun, 2011 [facility] [address] [id number] [address] [place] [id number] 14 Jun, 2011 [facility] [address] [id number] [address] [place] [phone] 31 May, 2011 [facility] [address] [id number] [address] [place] [id number] 31 May, 2011 [facility] [address] [id number] [address] [place] [id number] Aug, [facility] [address] [id number] [address] [place] [id number] Jul, [facility] [address] [id number] [address] [place] [phone] Jul, [facility] [address] [id number] [address] [place] [phone] 17 Jun, 2010 [facility] [address] [id number] [address] [place] [phone] 17 Jun, 2010 [facility] [address] [id number] [address] [place] [id number] Jun, [facility] [address] [id number] [address] [place] [id number] 04 Jun, 2010 [facility] [address] [id number] [address] [place] [phone] Jun, [facility] [address] [id number] [address] [place] [phone] 18 May, 2010 [facility] [address] [id number] [address] [place] [phone] 15 May, 2010 [facility] [address] [id number] [address] [place] [phone] 15 May, 2010 IMMUNIZATIONS No Known Immunizations SOCIAL HISTORY Never Assessed REASON FOR VISIT EKG PLAN OF CARE VITAL SIGNS MEDICATIONS Unknown Medications RESULTS No Results PROCEDURES Procedure Date Ordered Result Body Site EKG, TRACING 2018-03-31 N/A INSTRUCTIONS MEDICATIONS ADMINISTERED No Known Medications MEDICAL (GENERAL) HISTORY Type Description Date Medical History attention deficit hyperactivity disorder Hospitalization History [facility] Pneum[facility] 04/2016
--- OUTSIDE RECORDS SUMMARY | 2020-02-16 14:19 | XMS REPORT ---
Author Author Andrew CLEMONS Organization [facility] Address [address] [place] [address] Care Team Providers Care Dock Pumper Name Role Phone ANDREW CLEMONS Unavailable PROBLEMS Type Condition ICD9-CM Code [id number] Code Onset Dates Condition S tatus SNOMED Code Problem Attention deficit hyperactiv ity disorder (ADHD), predominantly inattentive type F90.0 Active 51948141 Problem Mood disorder F39 Active [id number] 05 Problem Attention deficit hyperactivity disorder (ADHD), combi david type F90.2 Active [id number] ALLERGIES No Known Allergies ENCOUNTERS Encounter Location Date Diagnosis [facility] [address] [id number] [address] [place] [id number] Jun, [facility] [address] [id number] [address] [place] [phone] May, [facility] [address] [id number] [address] [place] [address] May, [facility] [address] [id number] [address] [place] [id number] Apr, Attention deficit hyperactiv ity disorder (ADHD), combined type F90.2 [facility] [address] [id number] [address] [place] [id number] Mar, Attention deficit hyperactiv ity disorder (ADHD), combined type F90.2 [facility] [address] [id number] [address] [place] [id number] Mar, Attention deficit hyperactiv ity disorder (ADHD), combined type F90.2 [facility] [address] [id number] [address] [place] [id number] Mar, Attention deficit hyperactiv ity disorder (ADHD), combined type F90.2 and High risk medication use Z79.899 [facility] [address] [facility] [id number] [address] [place] [id number] 14 Mar, 2018 Gastroenteritis K52.9 [facility] [address] [facility] [id number] [address] [place] [phone] Feb, Attention deficit hyperactiv ity disorder (ADHD), combined type F90.2 [facility] [address] [facility] [id number] [address] [place] [phone] Jan, Attention deficit hyperactiv ity disorder (ADHD), combined type F90.2 and High risk medication use Z79.[address] [place], [place] [id number] 57 13 Sep, 2017 Acute cystitis without hematuria N30.00 and Acute suppurative otitis media of left ear with spontaneous rupture of tympanic membrane, recurrence not specified H66.[address] [id number] Jul, Seborrheic keratoses L82.1 and Mood disorder F39 [address] [id number] Jul, Attention deficit hyperactivity disorder (ADHD), predominantly inattentive type F90.[address] [id number] Jul, Mood disorder F39 [facility] [address] [facility] [id number] [address] [place] [address] Sep, [facility] [address] [facility] [id number] [address] [place] [phone] Aug, [facility] [address] [facility] [id number] [address] [place] [id number] Jul, [facility] [address] [facility] [id number] [address] [place] [phone] Jul, [facility] [address] [facility] [id number] [address] [place] [id number] Jun, Attention deficit hyperactiv ity disorder (ADHD), combined type F90.2 [facility] [address] [id number] [address] [place] [id number] May, [facility] [address] [id number] [address] [place] [phone] Apr, Attention deficit hyperactiv ity disorder (ADHD), combined type F90.2 [facility] [address] [id number] [address] [place] [id number] Mar, Acute non-recurrent maxillar y sinusitis J01.00 [facility] [address] [id number] [address] [place] [phone] Mar, Acute non-recurrent maxillar y sinusitis J01.00 [facility] [address] [id number] [address] [place] [phone] Mar, [facility] [address] [facility] [id number] [address] [place] [address] Feb, Gastroenteritis K52.9 [facility] [address] [id number] [address] [place] [address] Feb, [facility] [address] [id number] [address] [place] [phone] Jan, [facility] [address] [id number] [address] [place] [id number] December, [facility] [address] [id number] [address] [place] [id number] December, Rash R21 [facility] [address] [id number] [address] [place] [phone] Nov, [facility] [address] [id number] [address] [place] [phone] Nov, [facility] [address] [id number] [address] [place] [phone] Oct, [facility] [address] [id number] [address] [place] [id number] Oct, Attention deficit hyperactiv ity disorder (ADHD), combined type F90.2 [facility] [address] [facility] [id number] [address] [place] [id number] Sep, [facility] [address] [facility] [id number] [address] [place] [id number] Sep, Viral syndrome B34.9 and HSV (herpes simplex virus) infection B00.9 [facility] [address] [facility] [id number] [address] [place] [id number] Aug, [facility] [address] [facility] [id number] [address] [place] [phone] Aug, [facility] [address] [id number] [address] [place] [phone] Jul, [facility] [address] [id number] [address] [place] [id number] Jun, Gastroenteritis K52.9 [facility] [address] [id number] [address] [place] [id number] Jun, [facility] [address] [id number] [address] [place] [phone] Jun, Attention deficit hyperactiv ity disorder (ADHD), combined type F90.2 [facility] [address] [facility] [id number] [address] [place] [id number] Jun, [facility] [address] [facility] [id number] [address] [place] [phone] May, 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 [facility] [address] [facility] [id number] [address] [place] [phone] May, [facility] [address] [id number] [address] [place] [id number] Apr, [facility] [address] [facility] [id number] [address] [place] [id number] Mar, [facility] [address] [facility] [id number] [address] [place] [id number] Feb, [facility] [address] [id number] [address] [place] [id number] Jan, Poison janneth 692.6 [facility] [address] [id number] [address] [place] [phone] Jan, Attention deficit disorder ( ADD) 314.00 [facility] [address] [id number] [address] [place] [phone] Jan, [facility] [address] [id number] [address] [place] [id number] Jan, Poison janneth dermatitis 692.6 [facility] [address] [id number] [address] [place] [phone] December, [facility] [address] [id number] [address] [place] [id number] Nov, [facility] [address] [id number] [address] [place] [phone] Nov, [facility] [address] [id number] [address] [place] [phone] Oct, [facility] [address] [id number] [address] [place] [id number] Oct, [facility] [address] [id number] [address] [place] [id number] Oct, [facility] [address] [id number] [address] [place] [phone] Oct, [facility] [address] [id number] [address] [place] [phone] Oct, [facility] [address] [id number] [address] [place] [id number] Oct, [facility] [address] [id number] [address] [place] [phone] Oct, [facility] [address] [id number] [address] [place] [phone] Oct, [facility] [address] [id number] [address] [place] [address], [place] [address] Sep, [facility] [address] [id number] [address] [place] [address], [place] [address] Sep, [facility] [address] [id number] [address] [place] [address], [place] [address] Aug, [facility] [address] [id number] [address] [place] [address], [place] [address] Aug, [facility] [address] [id number] [address] [place] [address], [place] [address] Aug, [facility] [address] [id number] [address] [place] [address], [place] [address] Aug, [facility] [address] [id number] [address] [place] [address], [place] [address] Aug, [facility] [address] [id number] [address] [place] [address], [place] [address] Aug, [facility] [address] [id number] [address] [place] [address], [place] [address] Jul, [facility] [address] [id number] [address] [place] [address], [place] [address] Jul, [facility] [address] [id number] [address] [place] [address], [place] [address] Jun, [facility] [address] [id number] [address] [place] [phone] Jun, [facility] [address] [id number] [address] [place] [address], [place] [address] Jun, [facility] [address] [id number] [address] [place] [address], [place] [address] Jun, [facility] [address] [id number] [address] [place] [address], [place] [address] May, [facility] [address] [id number] [address] [place] [address], [place] [address] May, [facility] [address] [id number] [address] [place] [address], [place] [address] Apr, [facility] [address] [id number] [address] [place] [address], [place] [address] Apr, [facility] [address] [id number] [address] [place] [address], [place] [address] Mar, [facility] [address] [id number] [address] [place] [address], [place] [address] Mar, [facility] [address] [id number] [address] [place] [address], [place] [address] Feb, [facility] [address] [id number] [address] [place] [address], [place] [address] Feb, [facility] [address] [id number] [address] [place] [address], [place] [address] Feb, [facility] [address] [id number] [address] [place] [address], [place] [address] Feb, [facility] [address] [id number] [address] [place] [address], [place] [address] Jan, [facility] [address] [id number] [address] [place] [address], [place] [address] Jan, [facility] [address] [id number] [address] [place] [address], [place] [address] Jan, [facility] [address] [id number] [address] [place] [address], [place] [address] Jan, [facility] [address] [id number] [address] [place] [address], [place] [address] December, [facility] [address] [id number] [address] [place] [address], [place] [address] December, [facility] [address] [id number] [address] [place] [address], [place] [address] December, [facility] [address] [id number] [address] [place] [address], [place] [address] December, [facility] [address] [id number] [address] [place] [address], [place] [address] Nov, [facility] [address] [id number] [address] [place] [address], [place] [address] Nov, [facility] [address] [id number] [address] [place] [address], [place] [address] Oct, [facility] [address] [id number] [address] [place] [address], [place] [address] Oct, [facility] [address] [id number] [address] [place] [address], [place] [address] Sep, [facility] [address] [id number] [address] [place] [address], [place] [address] Sep, [facility] [address] [id number] [address] [place] [address], [place] [address] Aug, [facility] [address] [id number] [address] [place] [address], [place] [address] Aug, [facility] [address] [id number] [address] [place] [address], [place] [address] Jul, [facility] [address] [id number] [address] [place] [address], [place] [address] Jul, [facility] [address] [id number] [address] [place] [address], [place] [address] Jun, [facility] [address] [id number] [address] [place] [address], [place] [address] Jun, [facility] [address] [id number] [address] [place] [address], [place] [address] Jun, [facility] [address] [id number] [address] [place] [address], [place] [address] Jun, [facility] [address] [id number] [address] [place] [address], [place] [address] May, [facility] [address] [id number] [address] [place] [address], [place] [address] May, [facility] [address] [id number] [address] [place] [address], [place] [address] May, [facility] [address] [id number] [address] [place] [address], [place] [address] Apr, [facility] [address] [id number] [address] [place] [address], [place] [address] Mar, [facility] [address] [id number] [address] [place] [address], [place] [address] Mar, [facility] [address] [id number] [address] [place] [address], [place] [address] Mar, [facility] [address] [id number] [address] [place] [address], [place] [address] Mar, [facility] [address] [id number] [address] [place] [address], [place] [address] Feb, [facility] [address] [id number] [address] [place] [address], [place] [address] Feb, [facility] [address] [id number] [address] [place] [address], [place] [address] Feb, [facility] [address] [id number] [address] [place] [address], [place] [address] Jan, [facility] [address] [id number] [address] [place] [address], [place] [address] Jan, [facility] [address] [id number] [address] [place] [address], [place] [address] December, [facility] [address] [id number] [address] [place] [address], [place] [address] 24 Nov, 2012 [facility] [address] [id number] [address] [place] [address], [place] [address] Nov, [facility] [address] [id number] [address] [place] [address], [place] [address] Oct, [facility] [address] [id number] [address] [place] [address], [place] [address] Oct, [facility] [address] [id number] [address] [place] [address], [place] [address] Oct, [facility] [address] [id number] [address] [place] [address], [place] [address] Sep, [facility] [address] [id number] [address] [place] [address], [place] [address] Sep, [facility] [address] [id number] [address] [place] [address], [place] [address] Aug, [facility] [address] [id number] [address] [place] [address], [place] [address] Jun, [facility] [address] [id number] [address] [place] [address], [place] [address] Jun, [facility] [address] [id number] [address] [place] [address], [place] [address] Jun, [facility] [address] [id number] [address] [place] [address], [place] [address] Jun, [facility] [address] [id number] [address] [place] [address], [place] [address] Jun, [facility] [address] [id number] [address] [place] [address], [place] [address] Jun, [facility] [address] [id number] [address] [place] [address], [place] [address] Jun, [facility] [address] [id number] [address] [place] [address], [place] [address] Jun, [facility] [address] [id number] [address] [place] [address], [place] [address] May, [facility] [address] [id number] [address] [place] [address], [place] [address] May, [facility] [address] [id number] [address] [place] [address], [place] [address] May, [facility] [address] [id number] [address] [place] [address], [place] [address] May, [facility] [address] [id number] [address] [place] [address], [place] [address] May, [facility] [address] [id number] [address] [place] [address], [place] [address] May, [facility] [address] [id number] [address] [place] [address], [place] [address] 08 Apr, 2012 [facility] [address] [id number] [address] [place] [address], [place] [id number] 06 Apr, 2012 [facility] [address] [id number] [address] [place] [address], [place] [address] Mar, [facility] [address] [id number] [address] [place] [address], [place] [address] Feb, [facility] [address] [id number] [address] [place] [address], [place] [address] Jan, [facility] [address] [id number] [address] [place] [address], [place] [address] December, [facility] [address] [id number] [address] [place] [address], [place] [address] Nov, [facility] [address] [id number] [address] [place] [address], [place] [address] 24 Oct, 2011 [facility] [address] [id number] [address] [place] [address], [place] [address] Oct, [facility] [address] [id number] [address] [place] [address], [place] [address] Aug, [facility] [address] [id number] [address] [place] [address], [place] [address] Jul, [facility] [address] [id number] [address] [place] [id number] 15 Jun, 2011 [facility] [address] [id number] [address] [place] [id number] 14 Jun, 2011 [facility] [address] [id number] [address] [place] [id number] 31 May, 2011 [facility] [address] [id number] [address] [place] [phone] 31 May, 2011 [facility] [address] [id number] [address] [place] [phone] Aug, [facility] [address] [id number] [address] [place] [phone] 29 Jul, 2010 [facility] [address] [id number] [address] [place] [phone] Jul, [facility] [address] [id number] [address] [place] [phone] 17 Jun, 2010 [facility] [address] [id number] [address] [place] [phone] 17 Jun, 2010 [facility] [address] [id number] [address] [place] [id number] Jun, [facility] [address] [id number] [address] [place] [id number] 04 Jun, 2010 [facility] [address] [id number] [address] [place] [phone] Jun, [facility] [address] [id number] [address] [place] [phone] 18 May, 2010 [facility] [address] [id number] [address] [place] [id number] 15 May, 2010 [facility] [address] [id number] [address] [place] [phone] 15 May, 2010 IMMUNIZATIONS No Known Immunizations SOCIAL HISTORY Never Assessed REASON FOR VISIT Blood in stool-FLORINDA cristina, stomach cramps, having bowel movement constantly and its very watery and it hurts PLAN OF CARE Activity Details Follow Up prn Reason: VITAL SIGNS Height 69 in 2018-03-31 Weight 217.8 lbs 2018-03-31 Temperature 98.3 degrees Fahrenheit 2018-03-31 Heart Rate 132 bpm 2018-03-31 Respiratory Rate 20 2018-03-31 BMI 32.16 kg/m2 2018-03-31 Blood pressure systolic 122 mmHg 2018-03-31 Blood pressure diastolic 82 mmHg 2018-03-31 MEDICATIONS Medication Instructions Dosage Frequency Start Date End Date Duration S tatus Ciprofloxacin HCl 500 mg Orally every 12 hrs 1 tablet 12h Mar, Mar, 03 days Active Methylphenidate HCl 20 MG Orally daily 1 tablet morni ng and 0.5 tab in afternoon 24h Feb, Mar, 28 days Active ibuprofen Active ZyrTEC Active RESULTS No Results PROCEDURES No Known procedures INSTRUCTIONS MEDICATIONS ADMINISTERED No Known Medications MEDICAL (GENERAL) HISTORY Type Description Date Medical History attention deficit hyperactivity disorder Hospitalization History [facility] Pneumonia 04/2016
--- OUTSIDE RECORDS SUMMARY | 2020-02-16 14:19 | XMS REPORT ---
Author Author Andrew CASTRO Organization [facility] Address [address] [place] [address] Care Team Providers Care Trial Court Justice Name Role Phone GLORIARONILENY Unavailable PROBLEMS Type Condition ICD9-CM Code MDG76-MD Code Onset Dates Condition S tatus SNOMED Code Problem Attention deficit hyperactiv ity disorder (ADHD), predominantly inattentive type F90.0 Active 82495166 Problem Mood disorder F39 Active 148842 05 Problem Attention deficit hyperactivity disorder (ADHD), combi david type F90.2 Active [id number] ALLERGIES No Information ENCOUNTERS Encounter Location Date Diagnosis [facility] [address] [id number] [address] [place] [address] Jun, [facility] [address] [facility] [id number] [address] [place] [address] 16 May, 2018 [facility] [address] [id number] [address] [place] [address] May, [facility] [address] [id number] [address] [place] [address] Apr, Attention deficit hyperactiv ity disorder (ADHD), combined type F90.2 [facility] [address] [facility] [id number] [address] [place] [address] Mar, Attention deficit hyperactiv ity disorder (ADHD), combined type F90.2 [facility] [address] [facility] [id number] [address] [place] [address] Mar, Attention deficit hyperactiv ity disorder (ADHD), combined type F90.2 [facility] [address] [facility] [id number] [address] [place] [address] Mar, Attention deficit hyperactiv ity disorder (ADHD), combined type F90.2 and High risk medication use Z79.899 [facility] [address] [facility] [id number] [address] [place] [address] Mar, Gastroenteritis K52.9 [facility] [address] [facility] [id number] [address] [place] [address] Feb, Attention deficit hyperactiv ity disorder (ADHD), combined type F90.2 [facility] [address] [facility] [id number] [address] [place] [address] Jan, Attention deficit hyperactiv ity disorder (ADHD), combined type F90.2 and High risk medication use Z79.8[address] [place], [place] [id number] 57 13 Sep, 2017 Acute cystitis without hematuria N30.00 and Acute suppurative otitis media of left ear with spontaneous rupture of tympanic membrane, recurrence not specified H66.[address] [id number] Jul, Seborrheic keratoses L82.1 and Mood disorder F39 [address] [id number] Jul, Attention deficit hyperactivity disorder (ADHD), predominantly inattentive type F90.[address] [id number] Jul, Mood disorder F39 [facility] [address] [id number] [address] [place] [address] Sep, [facility] [address] [facility] [id number] [address] [place] [address] Aug, [facility] [address] [facility] [id number] [address] [place] [address] Jul, [facility] [address] [facility] [id number] [address] [place] [address] Jul, [facility] [address] [facility] [id number] [address] [place] [address] Jun, Attention deficit hyperactiv ity disorder (ADHD), combined type F90.2 [facility] [address] [id number] [address] [place] [address] May, [facility] [address] [id number] [address] [place] [address] Apr, Attention deficit hyperactiv ity disorder (ADHD), combined type F90.2 [facility] [address] [id number] [address] [place] [address], [place] [address] Mar, Acute non-recurrent maxillar y sinusitis J01.00 [facility] [address] [id number] [address] [place] [address], [place] [address] Mar, Acute non-recurrent maxillar y sinusitis J01.00 [facility] [address] [id number] [address] [place] [address], [place] [address] Mar, [facility] [address] [id number] [address] [place] [address] Feb, Gastroenteritis K52.9 [facility] [address] [id number] [address] [place] [address] Feb, [facility] [address] [id number] [address] [place] [address] Jan, [facility] [address] [id number] [address] [place] [address] December, [facility] [address] [id number] [address] [place] [address] December, Rash R21 [facility] [address] [id number] [address] [place] [address] Nov, [facility] [address] [id number] [address] [place] [address] Nov, [facility] [address] [id number] [address] [place] [address] Oct, [facility] [address] [id number] [address] [place] [address] Oct, Attention deficit hyperactiv ity disorder (ADHD), combined type F90.2 [facility] [address] [facility] [id number] [address] [place] [address] Sep, [facility] [address] [facility] [id number] [address] [place] [address] Sep, Viral syndrome B34.9 and HSV (herpes simplex virus) infection B00.9 [facility] [address] [facility] [id number] [address] [place] [address] Aug, [facility] [address] [facility] [id number] [address] [place] [address] Aug, [facility] [address] [facility] [id number] [address] [place] [address] Jul, [facility] [address] [id number] [address] [place] [address] Jun, Gastroenteritis K52.9 [facility] [address] [facility] [id number] [address] [place] [address] Jun, [facility] [address] [facility] [id number] [address] [place] [address] Jun, Attention deficit hyperactiv ity disorder (ADHD), combined type F90.2 [facility] [address] [facility] [id number] [address] [place] [address] Jun, [facility] [address] [facility] [id number] [address] [place] [address] May, 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 [facility] [address] [facility] [id number] [address] [place] [address] May, [facility] [address] [facility] [id number] [address] [place] [address] Apr, [facility] [address] [facility] [id number] [address] [place] [address] Mar, [facility] [address] [facility] [id number] [address] [place] [address] Feb, [facility] [address] [id number] [address] [place] [address] Jan, Poison janneth 692.6 [facility] [address] [id number] [address] [place] [address] Jan, Attention deficit disorder ( ADD) 314.00 [facility] [address] [id number] [address] [place] [address] Jan, [facility] [address] [id number] [address] [place] [address] Jan, Poison janneth dermatitis 692.6 [facility] [address] [id number] [address] [place] [address] December, [facility] [address] [id number] [address] [place] [address] Nov, [facility] [address] [id number] [address] [place] [address] Nov, [facility] [address] [id number] [address] [place] [address] Oct, [facility] [address] [id number] [address] [place] [address] Oct, [facility] [address] [id number] [address] [place] [address] Oct, [facility] [address] [id number] [address] [place] [address] Oct, [facility] [address] [id number] [address] [place] [address] Oct, [facility] [address] [id number] [address] [place] [address] Oct, [facility] [address] [id number] [address] [place] [phone] Oct, [facility] [address] [id number] [address] [place] [address] Oct, [facility] [address] [id number] [address] [place] [address], [place] [address] Sep, [facility] [address] [id number] [address] [place] [address], [place] [address] Sep, [facility] [address] [id number] [address] [place] [address], [place] [address] Aug, [facility] [address] [id number] [address] [place] [address], [place] [address] Aug, [facility] [address] [id number] [address] [place] [address], [place] [address] Aug, [facility] [address] [id number] [address] [place] [address], [place] [address] Aug, [facility] [address] [id number] [address] [place] [address], [place] [address] Aug, [facility] [address] [id number] [address] [place] [address], [place] [address] Aug, [facility] [address] [id number] [address] [place] [address], [place] [address] Jul, [facility] [address] [id number] [address] [place] [address], [place] [address] Jul, [facility] [address] [id number] [address] [place] [address], [place] [address] Jun, [facility] [address] [id number] [address] [place] [address], [place] [address] Jun, [facility] [address] [id number] [address] [place] [address], [place] [address] Jun, [facility] [address] [id number] [address] [place] [address], [place] [address] Jun, [facility] [address] [id number] [address] [place] [address], [place] [address] May, [facility] [address] [id number] [address] [place] [address], [place] [address] May, [facility] [address] [id number] [address] [place] [address], [place] [address] Apr, [facility] [address] [id number] [address] [place] [address], [place] [address] Apr, [facility] [address] [id number] [address] [place] [address], [place] [address] Mar, [facility] [address] [id number] [address] [place] [address], [place] [address] Mar, [facility] [address] [id number] [address] [place] [address], [place] [address] Feb, [facility] [address] [id number] [address] [place] [address], [place] [address] Feb, [facility] [address] [id number] [address] [place] [address], [place] [address] Feb, [facility] [address] [id number] [address] [place] [address], [place] [address] Feb, [facility] [address] [id number] [address] [place] [address], [place] [address] Jan, [facility] [address] [id number] [address] [place] [address], [place] [address] Jan, [facility] [address] [id number] [address] [place] [address], [place] [address] Jan, [facility] [address] [id number] [address] [place] [address], [place] [address] Jan, [facility] [address] [id number] [address] [place] [address], [place] [address] December, [facility] [address] [id number] [address] [place] [address], [place] [address] December, [facility] [address] [id number] [address] [place] [address], [place] [address] December, [facility] [address] [id number] [address] [place] [address], [place] [address] December, [facility] [address] [id number] [address] [place] [address], [place] [address] Nov, [facility] [address] [id number] [address] [place] [address], [place] [address] Nov, [facility] [address] [id number] [address] [place] [address], [place] [address] Oct, [facility] [address] [id number] [address] [place] [address], [place] [address] Oct, [facility] [address] [id number] [address] [place] [address], [place] [address] Sep, [facility] [address] [id number] [address] [place] [address], [place] [address] Sep, [facility] [address] [id number] [address] [place] [address], [place] [address] Aug, [facility] [address] [id number] [address] [place] [address], [place] [address] Aug, [facility] [address] [id number] [address] [place] [address], [place] [address] Jul, [facility] [address] [id number] [address] [place] [address], [place] [address] Jul, [facility] [address] [id number] [address] [place] [address], [place] [address] Jun, [facility] [address] [id number] [address] [place] [address], [place] [address] Jun, [facility] [address] [id number] [address] [place] [address], [place] [address] Jun, [facility] [address] [id number] [address] [place] [address], [place] [address] Jun, [facility] [address] [id number] [address] [place] [address], [place] [address] May, [facility] [address] [id number] [address] [place] [address], [place] [address] May, [facility] [address] [id number] [address] [place] [address], [place] [address] May, [facility] [address] [id number] [address] [place] [address], [place] [address] Apr, [facility] [address] [id number] [address] [place] [address], [place] [address] Mar, [facility] [address] [id number] [address] [place] [address], [place] [address] Mar, [facility] [address] [id number] [address] [place] [address], [place] [address] Mar, [facility] [address] [id number] [address] [place] [address], [place] [address] Mar, [facility] [address] [id number] [address] [place] [address], [place] [address] Feb, [facility] [address] [id number] [address] [place] [address], [place] [address] Feb, [facility] [address] [id number] [address] [place] [address], [place] [address] Feb, [facility] [address] [id number] [address] [place] [address], [place] [address] Jan, [facility] [address] [id number] [address] [place] [address], [place] [address] Jan, [facility] [address] [id number] [address] [place] [address], [place] [address] December, [facility] [address] [id number] [address] [place] [address], [place] [address] 24 Nov, 2012 [facility] [address] [id number] [address] [place] [address], [place] [address] Nov, [facility] [address] [id number] [address] [place] [address], [place] [address] Oct, [facility] [address] [id number] [address] [place] [address], [place] [address] Oct, [facility] [address] [id number] [address] [place] [address], [place] [address] Oct, [facility] [address] [id number] [address] [place] [address], [place] [address] Sep, [facility] [address] [id number] [address] [place] [address], [place] [address] Sep, [facility] [address] [id number] [address] [place] [address], [place] [address] Aug, [facility] [address] [id number] [address] [place] [address], [place] [address] Jun, [facility] [address] [id number] [address] [place] [address], [place] [address] Jun, [facility] [address] [id number] [address] [place] [address], [place] [address] Jun, [facility] [address] [id number] [address] [place] [address], [place] [address] Jun, [facility] [address] [id number] [address] [place] [address], [place] [address] Jun, [facility] [address] [id number] [address] [place] [address], [place] [address] Jun, [facility] [address] [id number] [address] [place] [address], [place] [address] Jun, [facility] [address] [id number] [address] [place] [address], [place] [address] Jun, [facility] [address] [id number] [address] [place] [address], [place] [address] May, [facility] [address] [id number] [address] [place] [address], [place] [address] May, [facility] [address] [id number] [address] [place] [address], [place] [address] May, [facility] [address] [id number] [address] [place] [address], [place] [address] May, [facility] [address] [id number] [address] [place] [address], [place] [address] May, [facility] [address] [id number] [address] [place] [address], [place] [address] May, [facility] [address] [id number] [address] [place] [address], [place] [address] 08 Apr, 2012 [facility] [address] [id number] [address] [place] [address], [place] [address] Apr, [facility] [address] [id number] [address] [place] [address], [place] [address] Mar, [facility] [address] [id number] [address] [place] [address], [place] [address] Feb, [facility] [address] [id number] [address] [place] [address], [place] [address] Jan, [facility] [address] [id number] [address] [place] [address], [place] [address] December, [facility] [address] [id number] [address] [place] [address], [place] [id number] Nov, [facility] [address] [id number] [address] [place] [address], [place] [phone] 24 Oct, 2011 [facility] [address] [id number] [address] [place] [address], [place] [id number] Oct, [facility] [address] [id number] [address] [place] [address], [place] [id number] Aug, [facility] [address] [id number] [address] [place] [address], [place] [address] Jul, [facility] [address] [id number] [address] [place] [id number] 15 Jun, 2011 [facility] [address] [id number] [address] [place] [phone] 14 Jun, 2011 [facility] [address] [id number] [address] [place] [phone] 31 May, 2011 [facility] [address] [id number] [address] [place] [phone] 31 May, 2011 [facility] [address] [id number] [address] [place] [phone] Aug, [facility] [address] [id number] [address] [place] [phone] Jul, [facility] [address] [id number] [address] [place] [phone] Jul, [facility] [address] [id number] [address] [place] [phone] 17 Jun, 2010 [facility] [address] [id number] [address] [place] [id number] 17 Jun, 2010 [facility] [address] [id number] [address] [place] [id number] Jun, [facility] [address] [id number] [address] [place] [id number] 04 Jun, 2010 [facility] [address] [id number] [address] [place] [phone] Jun, [facility] [address] [id number] [address] [place] [id number] 18 May, 2010 [facility] [address] [id number] [address] [place] [id number] 15 May, 2010 [facility] [address] [id number] [address] [place] [id number] May, IMMUNIZATIONS No Known Immunizations SOCIAL HISTORY Never Assessed REASON FOR VISIT methylphenidate 04/28/2018 PLAN OF CARE VITAL SIGNS MEDICATIONS Medication Instructions Dosage Frequency Start Date End Date Duration S felicia Methylphenidate HCl 20 MG Orally daily 1 tablet morni ng and 0.5 tab in afternoon 24h Apr, 28 days Active RESULTS No Results PROCEDURES No Known procedures INSTRUCTIONS MEDICATIONS ADMINISTERED No Known Medications MEDICAL (GENERAL) HISTORY Type Description Date Medical History attention deficit hyperactivity disorder Hospitalization History [facility] P[facility] 04/2016
--- OUTSIDE RECORDS SUMMARY | 2020-02-16 14:20 | XMS REPORT ---
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 Name Role Phone GLORIA LENY Unavailable PROBLEMS Type Condition ICD9-CM Code [id number] Code Onset Dates Condition S tatus SNOMED Code Problem Attention deficit hyperactiv ity disorder (ADHD), predominantly inattentive type F90.0 Active 97069368 Problem Mood disorder F39 Active 787411 05 Problem Attention deficit hyperactivity disorder (ADHD), combi david type F90.2 Active [id number] ALLERGIES No Information ENCOUNTERS Encounter Location Date Diagnosis [facility] [address] [id number] [address] [place] [phone] Jun, [facility] [address] [id number] [address] [place] [id number] 16 May, 2018 [facility] [id number] [place] [phone] May, [facility] [address] [id number] [address] [place] [address] Mar, Attention deficit hyperactiv ity disorder (ADHD), combined type F90.2 [facility] [address] [id number] [address] [place] [address] Mar, Attention deficit hyperactiv ity disorder (ADHD), combined type F90.2 [facility] [address] [id number] [address] [place] [address] Mar, Attention deficit hyperactiv ity disorder (ADHD), combined type F90.2 and High risk medication use Z79.899 [facility] [address] [id number] [address] [place] [address] 14 Aug, 2018 Gastroenteritis K52.9 [facility] [address] [facility] [id number] [address] [place] [address] Feb, Attention deficit hyperactiv ity disorder (ADHD), combined type F90.2 [facility] [address] [facility] [id number] [address] [place] [address] Jan, Attention deficit hyperactiv ity disorder (ADHD), combined type F90.2 and High risk medication use Z79.8[address] [place] [phone] [phone] 13 Sep, 2017 Acute cystitis without hematuria N30.00 and Acute suppurative otitis media of left ear with spontaneous rupture of tympanic membrane, recurrence not specified H66.[address] [id number] Jul, Seborrheic keratoses L82.1 and Mood disorder F39 [address] [id number] Jul, Attention deficit hyperactivity disorder (ADHD), predominantly inattentive type F90.[address] [id number] Jul, Mood disorder F39 [facility] [address] [facility] [id number] [address] [place] [address] Sep, [facility] [address] [facility] [id number] [address] [place] [phone] Aug, [facility] [address] [facility] [id number] [address] [place] [id number] Jul, [facility] [address] [facility] [id number] [address] [place] [address] Jul, [facility] [address] [facility] [id number] [address] [place] [phone] Jun, Attention deficit hyperactiv ity disorder (ADHD), combined type F90.2 [facility] [address] [facility] [id number] [address] [place] [address] May, [facility] [address] [facility] [id number] [address] [place] [phone] Apr, Attention deficit hyperactiv ity disorder (ADHD), combined type F90.2 [facility] [address] [id number] [address] [place] [address] Mar, Acute non-recurrent maxillar y sinusitis J01.00 [facility] [address] [id number] [address] [place] [address] Mar, Acute non-recurrent maxillar y sinusitis J01.00 [facility] [address] [id number] [address] [place] [address] Mar, [facility] [address] [id number] [address] [place] [address] Feb, Gastroenteritis K52.9 [facility] [address] [id number] [address] [place] [phone] Feb, [facility] [address] [id number] [address] [place] [address] Jan, [facility] [address] [id number] [address] [place] [phone] December, [facility] [address] [id number] [address] [place] [address] December, Rash R21 [facility] [address] [id number] [address] [place] [address] Nov, [facility] [address] [id number] [address] [place] [address] Nov, [facility] [address] [id number] [address] [place] [address] Oct, [facility] [address] [id number] [address] [place] [phone] Oct, Attention deficit hyperactiv ity disorder (ADHD), combined type F90.2 [facility] [address] [id number] [address] [place] [address] Sep, [facility] [address] [id number] [address] [place] [address] Sep, Viral syndrome B34.9 and HSV (herpes simplex virus) infection B00.9 [facility] [address] [id number] [address] [place] [address] Aug, [facility] [address] [id number] [address] [place] [address] Aug, [facility] [address] [id number] [address] [place] [address] Jul, [facility] [address] [id number] [address] [place] [address] Jun, Gastroenteritis K52.9 [facility] [id number] [place] [address] Jun, [facility] [address] [address] Jun, Attention deficit hyperactiv ity disorder (ADHD), combined type F90.2 [facility] [address] [id number] [address] [place] [address] Jun, [facility] [id number] [place] [address] May, 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 [facility] [address] [id number] [address] [place] [address] May, [facility] [address] [id number] [address] [place] [address] Apr, [facility] [address] [id number] [address] [place] [address] Mar, [facility] [address] [id number] [address] [place] [address] Feb, [facility] [address] [id number] [address] [place] [address] Jan, Poison janneth 692.6 [facility] [address] [id number] [address] [place] [address] 17 Jan, 2015 Attention deficit disorder ( ADD) 314.00 [facility] [address] [id number] [address] [place] [phone] 15 Jan, 2015 [facility] [address] [id number] [address] [place] [address] 02 Jan, 2015 Anni valdovinos 692.6 [facility] [address] [id number] [address] [place] [phone] 14 Dec, 2014 [facility] [address] [id number] [address] [place] [phone] 14 Nov, 2014 [facility] [address] [id number] [address] [place] [phone] Nov, [facility] [address] [id number] [address] [place] [address] Oct, [facility] [address] [id number] [address] [place] [phone] Oct, [facility] [address] [id number] [address] [place] [address] Oct, [facility] [address] [id number] [address] [place] [address] Oct, [facility] [address] [id number] [address] [place] [phone] 05 Oct, 2014 [facility] [address] [id number] [address] [place] [phone] 05 Oct, 2014 [facility] [address] [id number] [address] [place] [phone] Oct, [facility] [address] [id number] [address] [place] [phone] Oct, [facility] [address] [id number] [address] [place] [phone] Sep, [facility] [address] [id number] [address] [place] [address], [place] [address] Sep, [facility] [address] [id number] [address] [place] [address], [place] [address] Aug, [facility] [address] [id number] [address] [place] [address], [place] [address] Aug, [facility] [address] [id number] [address] [place] [address], [place] [address] Aug, [facility] [address] [id number] [address] [place] [address], [place] [address] Aug, [facility] [address] [id number] [address] [place] [address], [place] [address] Aug, [facility] [address] [id number] [address] [place] [address], [place] [address] Aug, [facility] [address] [id number] [address] [place] [address], [place] [address] Jul, [facility] [address] [id number] [address] [place] [address], [place] [address] Jul, [facility] [address] [id number] [address] [place] [address], [place] [address] Jun, [facility] [address] [id number] [address] [place] [address], [place] [address] Jun, [facility] [address] [id number] [address] [place] [address], [place] [address] Jun, [facility] [address] [id number] [address] [place] [address], [place] [address] Jun, [facility] [address] [id number] [address] [place] [address], [place] [address] May, [facility] [address] [id number] [address] [place] [address], [place] [address] May, [facility] [address] [id number] [address] [place] [address], [place] [address] Apr, [facility] [address] [id number] [address] [place] [address], [place] [address] Apr, [facility] [address] [id number] [address] [place] [address], [place] [address] Mar, [facility] [address] [id number] [address] [place] [address], [place] [address] Mar, [facility] [address] [id number] [address] [place] [address], [place] [address] Feb, [facility] [address] [id number] [address] [place] [address], [place] [address] Feb, [facility] [address] [id number] [address] [place] [address], [place] [address] Feb, [facility] [address] [id number] [address] [place] [address], [place] [address] Feb, [facility] [address] [id number] [address] [place] [address], [place] [address] Jan, [facility] [address] [id number] [address] [place] [address], [place] [address] Jan, [facility] [address] [id number] [address] [place] [address], [place] [address] Jan, [facility] [address] [id number] [address] [place] [address], [place] [address] Jan, [facility] [address] [id number] [address] [place] [address], [place] [address] December, [facility] [address] [id number] [address] [place] [address], [place] [address] December, [facility] [address] [id number] [address] [place] [address], [place] [address] December, [facility] [address] [id number] [address] [place] [address], [place] [address] December, [facility] [address] [id number] [address] [place] [address], [place] [address] Nov, [facility] [address] [id number] [address] [place] [address], [place] [address] Nov, [facility] [address] [id number] [address] [place] [address], [place] [address] Oct, [facility] [address] [id number] [address] [place] [address], [place] [address] Oct, [facility] [address] [id number] [address] [place] [address], [place] [address] Sep, [facility] [address] [id number] [address] [place] [address], [place] [address] Sep, [facility] [address] [id number] [address] [place] [address], [place] [address] Aug, [facility] [address] [id number] [address] [place] [address], [place] [address] Aug, [facility] [address] [id number] [address] [place] [address], [place] [address] Jul, [facility] [address] [id number] [address] [place] [address], [place] [address] Jul, [facility] [address] [id number] [address] [place] [address], [place] [address] Jun, [facility] [address] [id number] [address] [place] [address], [place] [address] Jun, [facility] [address] [id number] [address] [place] [address], [place] [address] Jun, [facility] [address] [id number] [address] [place] [address], [place] [address] Jun, [facility] [address] [id number] [address] [place] [address], [place] [address] May, [facility] [address] [id number] [address] [place] [address], [place] [address] May, [facility] [address] [id number] [address] [place] [address], [place] [address] May, [facility] [address] [id number] [address] [place] [address], [place] [address] Apr, [facility] [address] [id number] [address] [place] [address], [place] [address] Mar, [facility] [address] [id number] [address] [place] [address], [place] [address] Mar, [facility] [address] [id number] [address] [place] [address], [place] [address] Mar, [facility] [address] [id number] [address] [place] [address], [place] [address] Mar, [facility] [address] [id number] [address] [place] [address], [place] [address] Feb, [facility] [address] [id number] [address] [place] [address], [place] [address] Feb, [facility] [address] [id number] [address] [place] [address], [place] [address] Feb, [facility] [address] [id number] [address] [place] [address], [place] [address] Jan, [facility] [address] [id number] [address] [place] [address], [place] [address] Jan, [facility] [address] [id number] [address] [place] [address], [place] [address] December, [facility] [address] [id number] [address] [place] [address], [place] [address] 24 Nov, 2012 [facility] [address] [id number] [address] [place] [address], [place] [address] Nov, [facility] [address] [id number] [address] [place] [address], [place] [address] Oct, [facility] [address] [id number] [address] [place] [address] Oct, [facility] [address] [id number] [address] [place] [address], [place] [address] Oct, [facility] [address] [id number] [address] [place] [address], [place] [address] Sep, [facility] [address] [id number] [address] [place] [address], [place] [address] Sep, [facility] [address] [id number] [address] [place] [address], [place] [address] Aug, [facility] [address] [id number] [address] [place] [address], [place] [address] Jun, [facility] [address] [id number] [address] [place] [address], [place] [address] Jun, [facility] [address] [id number] [address] [place] [address], [place] [address] Jun, [facility] [address] [id number] [address] [place] [address], [place] [address] Jun, [facility] [address] [id number] [address] [place] [address], [place] [address] Jun, [facility] [address] [id number] [address] [place] [address], [place] [address] Jun, [facility] [address] [id number] [address] [place] [address], [place] [address] Jun, [facility] [address] [id number] [address] [place] [address] Jun, [facility] [address] [id number] [address] [place] [address], [place] [address] May, [facility] [address] [id number] [address] [place] [address], [place] [address] May, [facility] [address] [id number] [address] [place] [address], [place] [address] May, [facility] [address] [id number] [address] [place] [address], [place] [address] 18 May, 2012 [facility] [address] [id number] [address] [place] [address], [place] [address] 04 May, 2012 [facility] [address] [id number] [address] [place] [address], [place] [address] May, [facility] [address] [id number] [address] [place] [address], [place] [address] 08 Apr, 2012 [facility] [address] [id number] [address] [place] [address], [place] [address] 06 Apr, 2012 [facility] [address] [id number] [address] [place] [address], [place] [address] Mar, [facility] [address] [id number] [address] [place] [address], [place] [id number] Feb, [facility] [address] [id number] [address] [place] [address], [place] [id number] Jan, [facility] [address] [id number] [address] [place] [address], [place] [id number] December, [facility] [address] [id number] [address] [place] [address], [place] [phone] Nov, [facility] [address] [id number] [address] [place] [address], [place] [id number] 24 Oct, 2011 [facility] [address] [id number] [address] [place] [address], [place] [id number] 15 Oct, 2011 [facility] [address] [id number] [address] [place] [address], [place] [phone] Aug, [facility] [address] [id number] [address] [place] [address], [place] [id number] Jul, [facility] [address] [id number] [address] [place] [address], [place] [id number] 15 Jun, 2011 [facility] [address] [id number] [address] [place], [place] [address] [address] Jun, [facility] [address] [id number] [address] [place] [phone] May, [facility] [address] [id number] [address] [place] [phone] May, [facility] [address] [id number] [address] [place] [phone] Aug, [facility] [address] [id number] [address] [place] [phone] Jul, [facility] [address] [id number] [address] [place] [id number] Jul, [facility] [address] [id number] [address] [place] [id number] Jun, [facility] [address] [id number] [address] [place] [id number] Jun, [facility] [address] [id number] [address] [place] [id number] Jun, [facility] [address] [id number] [address] [place] [id number] Jun, [facility] [address] [id number] [address] [place] [phone] Jun, [facility] [address] [id number] [address] [place] [phone] May, [facility] [address] [id number] [address] [place] [phone] May, [facility] [address] [id number] [address] [place] [id number] May, IMMUNIZATIONS No Known Immunizations SOCIAL HISTORY Never Assessed REASON FOR VISIT f/u PLAN OF CARE Activity Details Follow Up 3 Months, prn Reason: VITAL SIGNS MEDICATIONS Medication Instructions Dosage Frequency Start Date End Date Duration S tatus ibuprofen Active Methylphenidate HCl 20 MG Orally daily 1 tablet morni ng and 0.5 tab in afternoon 24h Feb, Mar, 28 days Active ZyrTE Active RESULTS No Results PROCEDURES No Known procedures INSTRUCTIONS MEDICATIONS ADMINISTERED No Known Medications MEDICAL (GENERAL) HISTORY Type Description Date Medical History attention deficit hyperactivity disorder Hospitalization History [facility] 04/2016
--- OUTSIDE RECORDS SUMMARY | 2020-02-16 14:20 | XMS REPORT ---
Author Author Andrew Machuca Organization [facility] Address Unknown Care Team Providers Care [employer] Name Role Phone FORD Machuca Unavailable PROBLEMS Type Condition ICD9-CM Code UFM78-CM Code Onset Dates Condition S tatus SNOMED Code Problem Attention deficit hyperactivity disorder (ADHD), combi david type F90.2 Active [id number] ALLERGIES No Information SOCIAL HISTORY Never Assessed PLAN OF CARE VITAL SIGNS MEDICATIONS Medication Instructions Dosage Frequency Start Date End Date Duration S tatus Methylphenidate HCl 20 mg Orally in morning 1/2 tablet at noon 1 ta blet Sep, 28 days Active RESULTS No Results PROCEDURES No Known procedures IMMUNIZATIONS No Known Immunizations MEDICAL (GENERAL) HISTORY Type Description Date Medical History attention deficit hyperactivity disorder Hospitalization History [facility] 04/2016
--- OUTSIDE RECORDS SUMMARY | 2020-02-16 14:20 | XMS REPORT ---
Author Author Andrew REHMAN Organization [facility] Address [address] [place] [address] Care Team Providers Care Matrix Repairer Name Role Phone GREER REHMAN Unavailable PROBLEMS Type Condition ICD9-CM Code [id number] Code Onset Dates Condition S tatus SNOMED Code Problem Attention deficit hyperactiv ity disorder (ADHD), predominantly inattentive type F90.0 Active 33293576 Problem Mood disorder F39 Active 078885 05 Problem Attention deficit hyperactivity disorder (ADHD), combi david type F90.2 Active [id number] ALLERGIES No Known Allergies ENCOUNTERS Encounter Location Date Diagnosis [facility] [address] [facility] [id number] [address] [place] [id number] Feb, [facility] [address] [id number] [address] [place] [address] Jan, Attention deficit hyperactiv ity disorder (ADHD), combined type F90.2 and High risk medication use Z79.8[address] [place], [place] [id number] 13 Sep, 2017 Acute cystitis without hematuria N30.00 and Acute suppurative otitis media of left ear with spontaneous rupture of tympanic membrane, recurrence not specified H66.012 [address] [place], [place] [id number] Jul, Seborrheic keratoses L82.1 and Mood disorder F39 [address] [place], [place] [id number] 57 Jul, Attention deficit hyperactivity disorder (ADHD), predominantly inattentive type F90.[address] [id number] Jul, Mood disorder F39 [facility] [address] [facility] [id number] [address] [place] [address] Sep, [facility] [address] [id number] [address] [place] [address] Aug, [facility] [address] [id number] [address] [place] [address] Jul, [facility] [address] [id number] [address] [place] [address] Jul, [facility] [address] [id number] [address] [place] [address] Jun, Attention deficit hyperactiv ity disorder (ADHD), combined type F90.2 [facility] [address] [id number] [address] [place] [address] May, [facility] [address] [id number] [address] [place] [address] Apr, Attention deficit hyperactiv ity disorder (ADHD), combined type F90.2 [facility] [address] [id number] [address] [place] [address] Mar, Acute non-recurrent maxillar y sinusitis J01.00 [facility] [address] [id number] [address] [place] [address] Mar, Acute non-recurrent maxillar y sinusitis J01.00 [facility] [address] [id number] [address] [place] [address] Mar, [facility] [address] [id number] [address] [place] [address] Feb, Gastroenteritis K52.9 [facility] [address] [id number] [address] [place] [address] Feb, [facility] [address] [id number] [address] [place] [address] Jan, [facility] [address] [id number] [address] [place] [address] December, [facility] [address] [id number] [address] [place] [address] December, Rash R21 [facility] [address] [facility] [id number] [address] [place] [address] Nov, [facility] [address] [facility] [id number] [address] [place] [phone] Nov, [facility] [address] [facility] [id number] [address] [place] [address] Oct, [facility] [address] [facility] [id number] [address] [place] [address] Oct, Attention deficit hyperactiv ity disorder (ADHD), combined type F90.2 [facility] [address] [facility] [id number] [address] [place] [address] Sep, [facility] [address] [facility] [id number] [address] [place] [address] Sep, Viral syndrome B34.9 and HSV (herpes simplex virus) infection B00.9 [facility] [address] [facility] [id number] [address] [place] [address] Aug, [facility] [address] [facility] [id number] [address] [place] [address] Aug, [facility] [address] [id number] [address] [place] [address] Jul, [facility] [address] [facility] [id number] [address] [place] [address] Jun, Gastroenteritis K52.9 [facility] [address] [facility] [id number] [address] [place] [address] Jun, [facility] [address] [facility] [id number] [address] [place] [address] Jun, Attention deficit hyperactiv ity disorder (ADHD), combined type F90.2 [facility] [address] [facility] [id number] [address] [place] [address] Jun, [facility] [address] [facility] [id number] [address] [place] [address] May, 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 [address] [id number] [address] [place] [address] Apr, [facility] [address] [id number] [address] [place] [address] Mar, [facility] [address] [id number] [address] [place] [address] Feb, [facility] [address] [id number] [address] [place] [address] Jan, Poison janneth 692.6 [facility] [address] [id number] [address] [place] [address] Jan, Attention deficit disorder ( ADD) 314.00 [facility] [address] [id number] [address] [place] [address] Jan, [facility] [address] [id number] [address] [place] [address] Jan, Poison janneth dermatitis 692.6 [facility] [address] [id number] [address] [place] [address] December, [facility] [address] [id number] [address] [place] [address] Nov, [facility] [address] [id number] [address] [place] [address] Nov, [facility] [address] [id number] [address] [place] [phone] Oct, [facility] [address] [id number] [address] [place] [phone] Oct, [facility] [address] [facility] [id number] [address] [place] [phone] Oct, [facility] [address] [id number] [address] [place] [address], [place] [address] Oct, [facility] [address] [id number] [address] [place] [address], [place] [address] Oct, [facility] [address] [id number] [address] [place] [address], [place] [address] Oct, [facility] [address] [id number] [address] [place] [address], [place] [address] Oct, [facility] [address] [id number] [address] [place] [address], [place] [address] Oct, [facility] [address] [id number] [address] [place] [address], [place] [address] Sep, [facility] [address] [id number] [address] [place] [address], [place] [address] Sep, [facility] [address] [id number] [address] [place] [address], [place] [address] Aug, [facility] [address] [id number] [address] [place] [address], [place] [address] Aug, [facility] [address] [id number] [address] [place] [address], [place] [address] Aug, [facility] [address] [id number] [address] [place] [address], [place] [address] Aug, [facility] [address] [id number] [address] [place] [address], [place] [address] Aug, [facility] [address] [id number] [address] [place] [address], [place] [address] Aug, [facility] [address] [id number] [address] [place] [address], [place] [address] Jul, [facility] [address] [id number] [address] [place] [address], [place] [address] Jul, [facility] [address] [id number] [address] [place] [address], [place] [address] Jun, [facility] [address] [id number] [address] [place] [address], [place] [address] Jun, [facility] [address] [id number] [address] [place] [address], [place] [address] Jun, [facility] [address] [id number] [address] [place] [address], [place] [address] Jun, [facility] [address] [id number] [address] [place] [address], [place] [address] May, [facility] [address] [id number] [address] [place] [address], [place] [address] May, [facility] [address] [id number] [address] [place] [address], [place] [address] Apr, [facility] [address] [id number] [address] [place] [address], [place] [address] Apr, [facility] [address] [id number] [address] [place] [address], [place] [address] Mar, [facility] [address] [id number] [address] [place] [address], [place] [address] Mar, [facility] [address] [id number] [address] [place] [address], [place] [address] Feb, [facility] [address] [id number] [address] [place] [address], [place] [address] Feb, [facility] [address] [id number] [address] [place] [address], [place] [address] Feb, [facility] [address] [id number] [address] [place] [address], [place] [address] Feb, [facility] [address] [id number] [address] [place] [address], [place] [address] Jan, [facility] [address] [id number] [address] [place] [address], [place] [address] Jan, [facility] [address] [id number] [address] [place] [phone] Jan, [facility] [address] [id number] [address] [place] [address], [place] [address] Jan, [facility] [address] [id number] [address] [place] [address], [place] [address] December, [facility] [address] [id number] [address] [place] [address], [place] [address] December, [facility] [address] [id number] [address] [place] [address], [place] [address] December, [facility] [address] [id number] [address] [place] [address], [place] [address] December, [facility] [address] [id number] [address] [place] [address], [place] [address] Nov, [facility] [address] [id number] [address] [place] [address], [place] [address] Nov, [facility] [address] [id number] [address] [place] [address], [place] [address] Oct, [facility] [address] [id number] [address] [place] [address], [place] [address] Oct, [facility] [address] [id number] [address] [place] [address], [place] [address] Sep, [facility] [address] [id number] [address] [place] [address], [place] [address] Sep, [facility] [address] [id number] [address] [place] [address], [place] [address] Aug, [facility] [address] [id number] [address] [place] [address], [place] [address] Aug, [facility] [address] [id number] [address] [place] [address], [place] [address] Jul, [facility] [address] [id number] [address] [place] [address], [place] [address] Jul, [facility] [address] [id number] [address] [place] [address], [place] [address] Jun, [facility] [address] [id number] [address] [place] [address], [place] [address] Jun, [facility] [address] [id number] [address] [place] [address], [place] [address] Jun, [facility] [address] [id number] [address] [place] [address], [place] [address] Jun, [facility] [address] [id number] [address] [place] [address], [place] [address] May, [facility] [address] [id number] [address] [place] [address], [place] [address] May, [facility] [address] [id number] [address] [place] [address], [place] [address] May, [facility] [address] [id number] [address] [place] [address], [place] [address] Apr, [facility] [address] [id number] [address] [place] [address], [place] [address] Mar, [facility] [address] [id number] [address] [place] [address], [place] [address] Mar, [facility] [address] [id number] [address] [place] [address], [place] [address] Mar, [facility] [address] [id number] [address] [place] [address], [place] [address] Mar, [facility] [address] [id number] [address] [place] [address], [place] [address] Feb, [facility] [address] [id number] [address] [place] [address], [place] [address] Feb, [facility] [address] [id number] [address] [place] [address], [place] [address] Feb, [facility] [address] [id number] [address] [place] [address], [place] [address] Jan, [facility] [address] [id number] [address] [place] [address], [place] [address] Jan, [facility] [address] [id number] [address] [place] [address], [place] [address] December, [facility] [address] [id number] [address] [place] [address], [place] [address] Nov, [facility] [address] [id number] [address] [place] [address], [place] [address] Nov, [facility] [address] [id number] [address] [place] [address], [place] [address] Oct, [facility] [address] [id number] [address] [place] [address], [place] [address] Oct, [facility] [address] [id number] [address] [place] [address], [place] [address] Oct, [facility] [address] [id number] [address] [place] [address], [place] [address] Sep, [facility] [address] [id number] [address] [place] [address], [place] [address] Sep, [facility] [address] [id number] [address] [place] [address], [place] [address] Aug, [facility] [address] [id number] [address] [place] [address], [place] [address] Jun, [facility] [address] [id number] [address] [place] [address], [place] [address] Jun, [facility] [address] [id number] [address] [place] [address], [place] [address] Jun, [facility] [address] [id number] [address] [place] [address], [place] [address] Jun, [facility] [address] [id number] [address] [place] [address], [place] [address] Jun, [facility] [address] [id number] [address] [place] [address], [place] [address] Jun, [facility] [address] [id number] [address] [place] [address], [place] [address] Jun, [facility] [address] [id number] [address] [place] [address], [place] [address] Jun, [facility] [address] [id number] [address] [place] [address], [place] [address] May, [facility] [address] [id number] [address] [place] [address], [place] [address] May, [facility] [address] [id number] [address] [place] [address], [place] [address] May, [facility] [address] [id number] [address] [place] [address], [place] [address] May, [facility] [address] [id number] [address] [place] [address], [place] [address] May, [facility] [address] [id number] [address] [place] [address], [place] [address] May, [facility] [address] [id number] [address] [place] [address], [place] [address] Apr, [facility] [address] [id number] [address] [place] [address], [place] [address] Apr, [facility] [address] [id number] [address] [place] [address], [place] [address] Mar, [facility] [address] [id number] [address] [place] [address], [place] [address] Feb, [facility] [address] [id number] [address] [place] [address], [place] [address] Jan, [facility] [address] [id number] [address] [place] [address], [place] [address] December, [facility] [address] [id number] [address] [place] [address], [place] [address] Nov, [facility] [address] [id number] [address] [place] [address], [place] [address] 24 Oct, 2011 [facility] [address] [id number] [address] [place] [address], [place] [address] 15 Oct, 2011 [facility] [address] [id number] [address] [place] [address], [place] [address] 10 Aug, 2011 [facility] [address] [id number] [address] [place] [address], [place] [address] 22 Jul, 2011 [facility] [address] [id number] [address] [place] [address], [place] [address] 15 Jun, 2011 [facility] [address] [id number] [address] [place] [address], [place] [address] 14 Jun, 2011 [facility] [address] [id number] [address] [place] [address], [place] [address] 31 May, 2011 [facility] [address] [id number] [address] [place] [address], [place] [address] 31 May, 2011 [facility] [address] [id number] [address] [place] [address], [place] [address] Aug, [facility] [address] [id number] [address] [place] [phone] 29 Jul, 2010 [facility] [address] [id number] [address] [place] [phone] Jul, [facility] [address] [id number] [address] [place] [phone] Jun, [facility] [address] [id number] [address] [place] [address], [place] [phone] Jun, [facility] [address] [id number] [address] [place] [phone] Jun, [facility] [address] [id number] [address] [place] [phone] 04 Jun, 2010 [facility] [address] [id number] [address] [place] [phone] Jun, [facility] [address] [facility] [id number] [address] [place] [phone] May, [facility] [address] [facility] [id number] [address] [place] [phone] May, [facility] [address] [facility] [id number] [address] [place] [phone] May, IMMUNIZATIONS No Known Immunizations SOCIAL HISTORY Never Assessed REASON FOR VISIT [facility] PLAN OF CARE VITAL SIGNS Height 69 in 2017-09-30 Weight 209 lbs 2017-09-30 Heart Rate 72 bpm 2017-09-30 Respiratory Rate 16 2017-09-30 BMI 30.86 kg/m2 2017-09-30 Blood pressure systolic 114 mmHg 2017-09-30 Blood pressure diastolic 68 mmHg 2017-09-30 MEDICATIONS Medication Instructions Dosage Frequency Start Date End Date Duration S tatus PredniSONE 20 mg Orally Once a day 2 tablets 24h Sep, Sep, 05 days Active Amoxicillin 500 MG Orally every 8 hrs 1 capsule 8h Sep, Sep, 10 day(s) Active RESULTS No Results PROCEDURES No Known procedures INSTRUCTIONS MEDICATIONS ADMINISTERED No Known Medications MEDICAL (GENERAL) HISTORY Type Description Date Medical History attention deficit hyperactivity disorder Hospitalization History [facility] Pneumonia 04/2016
--- OUTSIDE RECORDS SUMMARY | 2020-02-16 14:20 | XMS REPORT ---
Author Author Andrew SCHILLING Organization [employer] Address Unknown Phone Unavailable Care Team Providers Care Airport Attendant Name Role Phone LONG SCHILLING CP Unavailable Allergies, Adverse Reactions, Alerts Substance Reaction Event Type N.K.D.A. Info Not Available Non Drug Allergy Problems Problem Type Condition Code Onset Dates Condition Statu s Problem Contusion of unspecified site 924.9 Active Problem Acute pharyngitis 462 Active Problem Acute upper respiratory infections of unspecified site 465.9 Active Problem Cough 786.2 Active Assessment Gastroenteritis K52.9 Active Problem Contact dermatitis and other eczema, due to unspecifie d cause 692.9 Active Problem Acute bronchitis 466.0 Active Medications Medication Code System Code Instructions Start Date End Date Status Dosage Zovirax [facility] [address]-16 5 % Externally every 3 hrs Sep 26, 2015 1 application to affected area Clobetasol Propionate [facility] [address]-69 0.05 % Externally Twice a day December 20, 2015 1 application to aff ected area Methylphenidate HCl [facility] [address]-90 20 mg TAKE ONE TABLET BY MOUTH TWICE DAILY Procedures Procedure Coding System Code Date Office Visit, Est Pt., Level 3 CPT-4 77055 [facility] 2015 Vital Signs Date/Time: March 02, 2016 Cardiac Monitoring Heart Rate 108 bpm Weight 203.6 lbs Height 69 in Blood Pressure Diastolic 100 mmHg Blood Pressure Systolic 152 mmHg Results No Known Results Summary Purpose [employer] Submission
--- OUTSIDE RECORDS SUMMARY | 2020-02-16 14:20 | XMS REPORT ---
Author Author Andrew HAYES Organization [employer] Address Unknown Phone Unavailable Care Team Providers Care Customer Sales Representative Name Role Phone FORD HAYES CP Unavailable Allergies No Known Allergies Problems Problem Type Condition Code Onset Dates Condition Statu s Problem Contusion of unspecified site 924.9 Active Problem Acute pharyngitis 462 Active Problem Acute upper respiratory infections of unspecified site 465.9 Active Problem Cough 786.2 Active Problem Contact dermatitis and other eczema, due to unspecifie d cause 692.9 Active Problem Acute bronchitis 466.0 Active Medications Medication Code System Code Instructions Start Date End Date Status Dosage Methylphenidate HCl [facility] [address]-33 20 MG Orally Twice a day Dr Gusman to sign for Chun February 01, 2015 1 tablet Results No Known Results Summary Purpose [employer] Submission
--- OUTSIDE RECORDS SUMMARY | 2020-02-16 14:20 | XMS REPORT ---
Author Author Andrew HAYES Organization [facility] Address Unknown Care Team Providers Care Volunteer Firefighter Name Role Phone FORD HAYES Unavailable PROBLEMS Type Condition ICD9-CM Code [id number] Code Onset Dates Condition S tatus SNOMED Code Problem Attention deficit hyperactivity disorder (ADHD), combi david type F90.2 Active [id number] ALLERGIES Unknown Allergies SOCIAL HISTORY No smoking Hx information available PLAN OF CARE VITAL SIGNS MEDICATIONS Medication Instructions Dosage Frequency Start Date End Date Duration S tatus Methylphenidate HCl 20 mg Orally in morning 1/2 tablet at noon 1 ta blet Jul, 28 days Active RESULTS No Results PROCEDURES No Known procedures IMMUNIZATIONS No Known Immunizations
--- OUTSIDE RECORDS SUMMARY | 2020-02-16 14:20 | XMS REPORT ---
Author Author Andrew REHMAN Organization [facility] Address [address] [place] [address] Care Team Providers Care Site Inspector Name Role Phone GREER REHMAN Unavailable PROBLEMS Type Condition ICD9-CM Code EOB35-HS Code Onset Dates Condition S tatus SNOMED Code Problem Attention deficit hyperactiv ity disorder (ADHD), predominantly inattentive type F90.0 Active 78715887 Problem Mood disorder F39 Active 076504 05 Problem Attention deficit hyperactivity disorder (ADHD), combi david type F90.2 Active [id number] ALLERGIES No Known Allergies ENCOUNTERS Encounter Location Date Diagnosis [facility] [address] [facility] [id number] [address] [place] [phone] Feb, [facility] [address] [id number] [address] [place] [address] Feb, [facility] [address] [id number] [address] [place] [address] Jan, Attention deficit hyperactiv ity disorder (ADHD), combined type F90.2 and High risk medication use Z79.899 [address] [place], [place] [id number] 57 13 Sep, 2017 Acute cystitis without hematuria N30.00 and Acute suppurative otitis media of left ear with spontaneous rupture of tympanic membrane, recurrence not specified H66.012 [facility] [address] [place], [place] [id number] 57 Jul, Seborrheic keratoses L82.1 and Mood disorder F39 [address] [place], [place] [id number] 57 Jul, Attention deficit hyperactivity disorder (ADHD), predominantly inattentive type F90.0 [address] [place], [place] [id number] 57 Jul, Mood disorder F39 [facility] [address] [facility] [id number] [address] [place] [address] Sep, [facility] [address] [id number] [address] [place] [address] Aug, [facility] [address] [facility] [id number] [address] [place] [address] Jul, [facility] [address] [id number] [address] [place] [address] Jul, [facility] [address] [id number] [address] [place] [address] Jun, Attention deficit hyperactiv ity disorder (ADHD), combined type F90.2 [facility] [address] [id number] [address] [place] [address] May, [facility] [address] [facility] [id number] [address] [place] [address] Apr, Attention deficit hyperactiv ity disorder (ADHD), combined type F90.2 [facility] [address] [id number] [address] [place] [address] Mar, Acute non-recurrent maxillar y sinusitis J01.00 [facility] [address] [facility] [id number] [address] [place] [address] Mar, Acute non-recurrent maxillar y sinusitis J01.00 [facility] [address] [facility] [id number] [address] [place] [address] Mar, [facility] [address] [facility] [id number] [address] [place] [address] Feb, Gastroenteritis K52.9 [facility] [address] [facility] [id number] [address] [place] [address] Feb, [facility] [address] [facility] [id number] [address] [place] [address] Jan, [facility] [address] [facility] [id number] [address] [place] [address] December, [facility] [address] [facility] [id number] [address] [place] [address] December, Rash R21 [facility] [address] [facility] [id number] [address] [place] [address] Nov, [facility] [address] [facility] [id number] [address] [place] [address] Nov, [facility] [address] [facility] [id number] [address] [place] [address] Oct, [facility] [address] [facility] [id number] [address] [place] [address] Oct, Attention deficit hyperactiv ity disorder (ADHD), combined type F90.2 [facility] [address] [facility] [id number] [address] [place] [address] Sep, [facility] [address] [facility] [id number] [address] [place] [address] Sep, Viral syndrome B34.9 and HSV (herpes simplex virus) infection B00.9 [facility] [address] [facility] [id number] [address] [place] [address] Aug, [facility] [address] [facility] [id number] [address] [place] [address] Aug, [facility] [address] [facility] [id number] [address] [place] [address] Jul, [facility] [address] [facility] [id number] [address] [place] [address] Jun, Gastroenteritis K52.9 [facility] [address] [facility] [id number] [address] [place] [address] Jun, [facility] [address] [facility] [id number] [address] [place] [address] Jun, Attention deficit hyperactiv ity disorder (ADHD), combined type F90.2 [facility] [address] [facility] [id number] [address] [place] [address] Jun, [facility] [address] [id number] [address] [place] [address] May, 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 [facility] [address] [id number] [address] [place] [address] May, [facility] [address] [id number] [address] [place] [address] Apr, [facility] [address] [id number] [address] [place] [address] Mar, [facility] [address] [id number] [address] [place] [address] Feb, [facility] [address] [id number] [address] [place] [address] Jan, Poison janneth 692.6 [facility] [address] [id number] [address] [place] [address] Jan, Attention deficit disorder ( ADD) 314.00 [facility] [address] [id number] [address] [place] [address] Jan, [facility] [address] [id number] [address] [place] [address] Jan, Poison janneth dermatitis 692.6 [facility] [address] [id number] [address] [place] [address] December, [facility] [address] [id number] [address] [place] [address] Nov, [facility] [address] [id number] [address] [place] [address] Nov, [facility] [address] [facility] [id number] [address] [place] [phone] Oct, [facility] [address] [facility] [id number] [address] [place] [phone] Oct, [facility] [address] [id number] [address] [place] [address], [place] [address] Oct, [facility] [address] [id number] [address] [place] [address], [place] [address] Oct, [facility] [address] [id number] [address] [place] [address], [place] [address] Oct, [facility] [address] [id number] [address] [place] [address], [place] [address] Oct, [facility] [address] [id number] [address] [place] [address], [place] [address] Oct, [facility] [address] [id number] [address] [place] [address], [place] [address] Oct, [facility] [address] [id number] [address] [place] [address], [place] [address] Sep, [facility] [address] [id number] [address] [place] [address], [place] [address] Sep, [facility] [address] [id number] [address] [place] [address], [place] [address] Aug, [facility] [address] [id number] [address] [place] [address], [place] [address] Aug, [facility] [address] [id number] [address] [place] [address], [place] [address] Aug, [facility] [address] [id number] [address] [place] [address], [place] [address] Aug, [facility] [address] [id number] [address] [place] [address], [place] [address] Aug, [facility] [address] [id number] [address] [place] [address], [place] [address] Aug, [facility] [address] [id number] [address] [place] [address], [place] [address] Jul, [facility] [address] [id number] [address] [place] [address], [place] [address] Jul, [facility] [address] [id number] [address] [place] [address], [place] [address] Jun, [facility] [address] [id number] [address] [place] [address], [place] [address] Jun, [facility] [address] [id number] [address] [place] [address], [place] [address] Jun, [facility] [address] [id number] [address] [place] [address], [place] [address] Jun, [facility] [address] [id number] [address] [place] [address], [place] [address] May, [facility] [address] [id number] [address] [place] [address], [place] [address] May, [facility] [address] [id number] [address] [place] [address], [place] [address] Apr, [facility] [address] [id number] [address] [place] [address], [place] [address] Apr, [facility] [address] [id number] [address] [place] [address], [place] [address] Mar, [facility] [address] [id number] [address] [place] [address], [place] [address] Mar, [facility] [address] [id number] [address] [place] [address], [place] [address] Feb, [facility] [address] [id number] [address] [place] [address], [place] [address] Feb, [facility] [address] [id number] [address] [place] [address], [place] [address] Feb, [facility] [address] [id number] [address] [place] [address], [place] [address] Feb, [facility] [address] [id number] [address] [place] [address], [place] [address] Jan, [facility] [address] [id number] [address] [place] [address] Jan, [facility] [address] [id number] [address] [place] [address], [place] [address] Jan, [facility] [address] [id number] [address] [place] [address], [place] [address] Jan, [facility] [address] [id number] [address] [place] [address], [place] [address] December, [facility] [address] [id number] [address] [place] [address], [place] [address] December, [facility] [address] [id number] [address] [place] [address], [place] [address] December, [facility] [address] [id number] [address] [place] [address], [place] [address] December, [facility] [address] [id number] [address] [place] [address], [place] [address] Nov, [facility] [address] [id number] [address] [place] [address], [place] [address] Nov, [facility] [address] [id number] [address] [place] [address], [place] [address] Oct, [facility] [address] [id number] [address] [place] [address], [place] [address] Oct, [facility] [address] [id number] [address] [place] [address], [place] [address] Sep, [facility] [address] [id number] [address] [place] [address], [place] [address] Sep, [facility] [address] [id number] [address] [place] [address], [place] [address] Aug, [facility] [address] [id number] [address] [place] [address], [place] [address] Aug, [facility] [address] [id number] [address] [place] [address], [place] [address] Jul, [facility] [address] [id number] [address] [place] [address], [place] [address] Jul, [facility] [address] [id number] [address] [place] [address], [place] [address] Jun, [facility] [address] [id number] [address] [place] [address], [place] [address] Jun, [facility] [address] [id number] [address] [place] [address], [place] [address] Jun, [facility] [address] [id number] [address] [place] [address], [place] [address] Jun, [facility] [address] [id number] [address] [place] [address], [place] [address] May, [facility] [address] [id number] [address] [place] [address], [place] [address] May, [facility] [address] [id number] [address] [place] [address], [place] [address] May, [facility] [address] [id number] [address] [place] [address], [place] [address] Apr, [facility] [address] [id number] [address] [place] [address], [place] [address] Mar, [facility] [address] [id number] [address] [place] [address], [place] [address] Mar, [facility] [address] [id number] [address] [place] [address], [place] [address] Mar, [facility] [address] [id number] [address] [place] [address], [place] [address] Mar, [facility] [address] [id number] [address] [place] [address], [place] [address] Feb, [facility] [address] [id number] [address] [place] [address], [place] [address] Feb, [facility] [address] [id number] [address] [place] [address], [place] [address] Feb, [facility] [address] [id number] [address] [place] [address], [place] [address] Jan, [facility] [address] [id number] [address] [place] [address], [place] [address] Jan, [facility] [address] [id number] [address] [place] [address], [place] [address] December, [facility] [address] [id number] [address] [place] [address], [place] [address] Nov, [facility] [address] [id number] [address] [place] [address], [place] [address] Nov, [facility] [address] [id number] [address] [place] [address], [place] [address] Oct, [facility] [address] [id number] [address] [place] [address], [place] [address] Oct, [facility] [address] [id number] [address] [place] [address], [place] [address] Oct, [facility] [address] [id number] [address] [place] [address], [place] [address] Sep, [facility] [address] [id number] [address] [place] [address], [place] [address] Sep, [facility] [address] [id number] [address] [place] [address], [place] [address] Aug, [facility] [address] [id number] [address] [place] [address], [place] [address] Jun, [facility] [address] [id number] [address] [place] [address], [place] [address] Jun, [facility] [address] [id number] [address] [place] [address], [place] [address] Jun, [facility] [address] [id number] [address] [place] [address], [place] [address] Jun, [facility] [address] [id number] [address] [place] [address], [place] [address] Jun, [facility] [address] [id number] [address] [place] [address], [place] [address] Jun, [facility] [address] [id number] [address] [place] [address], [place] [address] Jun, [facility] [address] [id number] [address] [place] [address], [place] [address] Jun, [facility] [address] [id number] [address] [place] [address], [place] [address] May, [facility] [address] [id number] [address] [place] [address], [place] [address] May, [facility] [address] [id number] [address] [place] [address], [place] [address] May, [facility] [address] [id number] [address] [place] [address], [place] [address] May, [facility] [address] [id number] [address] [place] [address], [place] [address] May, [facility] [address] [id number] [address] [place] [address], [place] [address] May, [facility] [address] [id number] [address] [place] [address], [place] [address] 08 Apr, 2012 [facility] [address] [id number] [address] [place] [address], [place] [address] Apr, [facility] [address] [id number] [address] [place] [address], [place] [address] Mar, [facility] [address] [id number] [address] [place] [address], [place] [address] Feb, [facility] [address] [id number] [address] [place] [address], [place] [address] Jan, [facility] [address] [id number] [address] [place] [address], [place] [address] December, [facility] [address] [id number] [address] [place] [address], [place] [address] Nov, [facility] [address] [id number] [address] [place] [address], [place] [address] 24 Oct, 2011 [facility] [address] [id number] [address] [place] [address], [place] [address] 15 Oct, 2011 [facility] [address] [id number] [address] [place] [address], [place] [address] Aug, [facility] [address] [id number] [address] [place] [address], [place] [address] Jul, [facility] [address] [id number] [address] [place] [address], [place] [address] 15 Jun, 2011 [facility] [address] [id number] [address] [place] [address], [place] [id number] 14 Jun, 2011 [facility] [address] [id number] [address] [place] [address], [place] [id number] May, [facility] [address] [id number] [address] [place] [address], [place] [id number] May, [facility] [address] [id number] [address] [place] [id number] Aug, [facility] [address] [id number] [address] [place] [address], [place] [id number] Jul, [facility] [address] [id number] [address] [place] [id number] Jul, [facility] [address] [id number] [address] [place] [address], [place] [id number] Jun, [facility] [address] [id number] [address] [place] [address], [place] [id number] Jun, [facility] [address] [id number] [address] [place] [id number] Jun, [facility] [address] [id number] [address] [place] [id number] Jun, [facility] [address] [facility] [id number] [address] [place] [phone] Jun, [facility] [address] [facility] [id number] [address] [place] [id number] May, [facility] [address] [facility] [id number] [address] [place] [phone] May, [facility] [address] [facility] [id number] [address] [place] [phone] May, IMMUNIZATIONS No Known Immunizations SOCIAL HISTORY Never Assessed REASON FOR VISIT [facility] CARE VITAL SIGNS Height 69 in 2017-07-29 Weight 208 lbs 2017-07-29 Heart Rate 80 bpm 2017-07-29 Respiratory Rate 16 2017-07-29 BMI 30.71 kg/m2 2017-07-29 Blood pressure systolic 104 mmHg 2017-07-29 Blood pressure diastolic 64 mmHg 2017-07-29 MEDICATIONS Medication Instructions Dosage Frequency Start Date End Date Duration S bryus Fluvoxamine Maleate 50 MG Orally Once a day 1 tablet at bedtime 24h Jul, 30 day(s) Active RESULTS No Results PROCEDURES No Known procedures INSTRUCTIONS MEDICATIONS ADMINISTERED No Known Medications MEDICAL (GENERAL) HISTORY Type Description Date Medical History attention deficit hyperactivity disorder Hospitalization History [facility] Pneum[facility] 04/2016
--- OUTSIDE RECORDS SUMMARY | 2020-02-16 14:20 | XMS REPORT ---
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 Name Role Phone GLORIARONILENY Unavailable PROBLEMS Type Condition ICD9-CM Code STO00-SW Code Onset Dates Condition S tatus SNOMED Code Problem Attention deficit hyperactiv ity disorder (ADHD), predominantly inattentive type F90.0 Active 18762520 Problem Mood disorder F39 Active 734022 05 Problem Attention deficit hyperactivity disorder (ADHD), combi david type F90.2 Active [id number] ALLERGIES No Known Allergies ENCOUNTERS Encounter Location Date Diagnosis [facility] [address] [id number] [address] [place] [id number] 16 May, 2018 [facility] [address] [facility] [id number] [address] [place] [id number] Mar, [facility] [address] [id number] [address] [place] [address] Mar, Attention deficit hyperactiv ity disorder (ADHD), combined type F90.2 [facility] [address] [id number] [address] [place] [id number] Mar, Attention deficit hyperactiv ity disorder (ADHD), combined type F90.2 and High risk medication use Z79.899 [facility] [address] [facility] [id number] [address] [place] [address] Mar, Gastroenteritis K52.9 [facility] [address] [facility] [id number] [address] [place] [address] Feb, Attention deficit hyperactiv ity disorder (ADHD), combined type F90.2 [facility] [address] [id number] [address] [place] [id number] Jan, Attention deficit hyperactiv ity disorder (ADHD), combined type F90.2 and High risk medication use Z79.899 [address] [place], [place] [id number] 57 13 Sep, 2017 Acute cystitis without hematuria N30.00 and Acute suppurative otitis media of left ear with spontaneous rupture of tympanic membrane, recurrence not specified H66.012 [address] [place], [place] [id number] Jul, Seborrheic keratoses L82.1 and Mood disorder F39 [address] [place], [place] [id number] 57 Jul, Attention deficit hyperactivity disorder (ADHD), predominantly inattentive type F90.[address] [id number] Jul, Mood disorder F39 [facility] [address] [id number] [address] [place] [phone] Sep, [facility] [address] [id number] [address] [place] [id number] Aug, [facility] [address] [id number] [address] [place] [address] Jul, [facility] [address] [id number] [address] [place] [address] Jul, [facility] [address] [id number] [address] [place] [id number] Jun, Attention deficit hyperactiv ity disorder (ADHD), combined type F90.2 [facility] [address] [id number] [address] [place] [address] May, [facility] [address] [id number] [address] [place] [id number] Apr, Attention deficit hyperactiv ity disorder (ADHD), combined type F90.2 [facility] [address] [id number] [address] [place] [id number] Mar, Acute non-recurrent maxillar y sinusitis J01.00 [facility] [address] [id number] [address] [place] [address] Mar, Acute non-recurrent maxillar y sinusitis J01.00 [facility] [address] [facility] [id number] [address] [place] [phone] Mar, [facility] [address] [id number] [address] [place] [address] Feb, Gastroenteritis K52.9 [facility] [address] [facility] [id number] [address] [place] [phone] Feb, [facility] [address] [id number] [address] [place] [address] Jan, [facility] [address] [facility] [id number] [address] [place] [phone] December, [facility] [address] [facility] [id number] [address] [place] [address] December, Rash R21 [facility] [address] [facility] [id number] [address] [place] [phone] Nov, [facility] [address] [id number] [address] [place] [address] Nov, [facility] [address] [facility] [id number] [address] [place] [phone] Oct, [facility] [address] [facility] [id number] [address] [place] [address] Oct, Attention deficit hyperactiv ity disorder (ADHD), combined type F90.2 [facility] [address] [facility] [id number] [address] [place] [address] Sep, [facility] [address] [facility] [id number] [address] [place] [address] Sep, Viral syndrome B34.9 and HSV (herpes simplex virus) infection B00.9 [facility] [address] [facility] [id number] [address] [place] [address] Aug, [facility] [address] [facility] [id number] [address] [place] [address] Aug, [facility] [address] [facility] [id number] [address] [place] [id number] Jul, [facility] [address] [facility] [id number] [address] [place] [id number] Jun, Gastroenteritis K52.9 [facility] [address] [facility] [id number] [address] [place] [address] Jun, [facility] [id number] [place] [id number] Jun, Attention deficit hyperactiv ity disorder (ADHD), combined type F90.2 [facility] [address] [id number] [address] [place] [id number] Jun, [facility] [address] [id number] [address] [place] [address] May, 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 [facility] [address] [facility] [id number] [address] [place] [address] May, [facility] [address] [id number] [address] [place] [id number] Apr, [facility] [address] [id number] [address] [place] [id number] Mar, [facility] [address] [id number] [address] [place] [phone] Feb, [facility] [address] [facility] [id number] [address] [place] [phone] Jan, Poison janneth 692.6 [facility] [address] [id number] [address] [place] [id number] Jan, Attention deficit disorder ( ADD) 314.00 [facility] [address] [id number] [address] [place] [address] Jan, [facility] [address] [id number] [address] [place] [address] Jan, Anni valdovinos 692.6 [facility] [address] [id number] [address] [place] [address], [place] [address] December, [facility] [address] [id number] [address] [place] [address], [place] [address] Nov, [facility] [address] [id number] [address] [place] [address], [place] [address] Nov, [facility] [address] [id number] [address] [place] [address], [place] [address] Oct, [facility] [address] [id number] [address] [place] [address], [place] [address] Oct, [facility] [address] [id number] [address] [place] [address], [place] [address] Oct, [facility] [address] [id number] [address] [place] [address], [place] [address] Oct, [facility] [address] [id number] [address] [place] [address], [place] [address] Oct, [facility] [address] [id number] [address] [place] [address], [place] [address] Oct, [facility] [address] [id number] [address] [place] [address], [place] [address] Oct, [facility] [address] [id number] [address] [place] [phone] Oct, [facility] [address] [id number] [address] [place] [address], [place] [address] Sep, [facility] [address] [id number] [address] [place] [address], [place] [address] Sep, [facility] [address] [id number] [address] [place] [address] Aug, [facility] [address] [id number] [address] [place] [phone] Aug, [facility] [address] [id number] [address] [place] [address], [place] [address] Aug, [facility] [address] [id number] [address] [place] [address], [place] [address] Aug, [facility] [address] [id number] [address] [place] [address], [place] [address] Aug, [facility] [address] [id number] [address] [place] [address], [place] [address] Aug, [facility] [address] [id number] [address] [place] [address], [place] [address] Jul, [facility] [address] [id number] [address] [place] [address], [place] [address] Jul, [facility] [address] [id number] [address] [place] [address], [place] [address] Jun, [facility] [address] [id number] [address] [place] [address], [place] [address] Jun, [facility] [address] [id number] [address] [place] [address], [place] [address] Jun, [facility] [address] [id number] [address] [place] [address], [place] [address] Jun, [facility] [address] [id number] [address] [place] [address], [place] [address] May, [facility] [address] [id number] [address] [place] [address], [place] [address] May, [facility] [address] [id number] [address] [place] [address], [place] [address] Apr, [facility] [address] [id number] [address] [place] [address], [place] [address] Apr, [facility] [address] [id number] [address] [place] [address], [place] [address] Mar, [facility] [address] [id number] [address] [place] [address], [place] [address] Mar, [facility] [address] [id number] [address] [place] [address], [place] [address] Feb, [facility] [address] [id number] [address] [place] [address], [place] [address] Feb, [facility] [address] [id number] [address] [place] [address], [place] [address] Feb, [facility] [address] [id number] [address] [place] [address], [place] [address] Feb, [facility] [address] [id number] [address] [place] [address], [place] [address] Jan, [facility] [address] [id number] [address] [place] [address], [place] [address] Jan, [facility] [address] [id number] [address] [place] [address], [place] [address] Jan, [facility] [address] [id number] [address] [place] [address], [place] [address] Jan, [facility] [address] [id number] [address] [place] [address], [place] [address] December, [facility] [address] [id number] [address] [place] [address], [place] [address] December, [facility] [address] [id number] [address] [place] [address], [place] [address] December, [facility] [address] [id number] [address] [place] [address], [place] [address] December, [facility] [address] [id number] [address] [place] [address], [place] [address] Nov, [facility] [address] [id number] [address] [place] [address], [place] [address] Nov, [facility] [address] [id number] [address] [place] [address], [place] [address] Oct, [facility] [address] [id number] [address] [place] [address], [place] [address] Oct, [facility] [address] [id number] [address] [place] [address], [place] [address] Sep, [facility] [address] [id number] [address] [place] [address], [place] [address] Sep, [facility] [address] [id number] [address] [place] [address], [place] [address] Aug, [facility] [address] [id number] [address] [place] [address], [place] [address] Aug, [facility] [address] [id number] [address] [place] [address], [place] [address] Jul, [facility] [address] [id number] [address] [place] [address], [place] [address] Jul, [facility] [address] [id number] [address] [place] [address], [place] [address] Jun, [facility] [address] [id number] [address] [place] [address], [place] [address] Jun, [facility] [address] [id number] [address] [place] [address], [place] [address] Jun, [facility] [address] [id number] [address] [place] [address], [place] [address] Jun, [facility] [address] [id number] [address] [place] [address] May, [facility] [address] [id number] [address] [place] [address], [place] [address] May, [facility] [address] [id number] [address] [place] [address], [place] [address] May, [facility] [address] [id number] [address] [place] [address], [place] [address] 30 Apr, 2013 [facility] [address] [id number] [address] [place] [address], [place] [address] Mar, [facility] [address] [id number] [address] [place] [address], [place] [address] Mar, [facility] [address] [id number] [address] [place] [address], [place] [address] Mar, [facility] [address] [id number] [address] [place] [address], [place] [address] Mar, [facility] [address] [id number] [address] [place] [address], [place] [address] Feb, [facility] [address] [id number] [address] [place] [address], [place] [address] Feb, [facility] [address] [id number] [address] [place] [address], [place] [address] Feb, [facility] [address] [id number] [address] [place] [address], [place] [address] Jan, [facility] [address] [id number] [address] [place] [address], [place] [address] Jan, [facility] [address] [id number] [address] [place] [address], [place] [address] December, [facility] [address] [id number] [address] [place] [address], [place] [address] Nov, [facility] [address] [id number] [address] [place] [address], [place] [address] Nov, [facility] [address] [id number] [address] [place] [address], [place] [address] Oct, [facility] [address] [id number] [address] [place] [address], [place] [address] Oct, [facility] [address] [id number] [address] [place] [address], [place] [address] Oct, [facility] [address] [id number] [address] [place] [address], [place] [address] Sep, [facility] [address] [id number] [address] [place] [address], [place] [address] Sep, [facility] [address] [id number] [address] [place] [address], [place] [address] Aug, [facility] [address] [id number] [address] [place] [address], [place] [address] Jun, [facility] [address] [id number] [address] [place] [address], [place] [address] Jun, [facility] [address] [id number] [address] [place] [address], [place] [address] Jun, [facility] [address] [id number] [address] [place] [address], [place] [address] Jun, [facility] [address] [id number] [address] [place] [address], [place] [address] Jun, [facility] [address] [id number] [address] [place] [address], [place] [address] Jun, [facility] [address] [id number] [address] [place] [address], [place] [address] Jun, [facility] [address] [id number] [address] [place] [address], [place] [address] Jun, [facility] [address] [id number] [address] [place] [address], [place] [address] May, [facility] [address] [id number] [address] [place] [address], [place] [address] May, [facility] [address] [id number] [address] [place] [address], [place] [address] May, [facility] [address] [id number] [address] [place] [address], [place] [address] May, [facility] [address] [id number] [address] [place] [address], [place] [address] May, [facility] [address] [id number] [address] [place] [address], [place] [address] May, [facility] [address] [id number] [address] [place] [address], [place] [id number] 08 Apr, 2012 [facility] [address] [id number] [address] [place] [address], [place] [id number] 06 Apr, 2012 [facility] [address] [id number] [address] [place] [address], [place] [id number] Mar, [facility] [address] [id number] [address] [place] [address], [place] [id number] Feb, [facility] [address] [id number] [address] [place] [address], [place] [id number] Jan, [facility] [address] [id number] [address] [place] [address], [place] [id number] December, [facility] [address] [id number] [address] [place] [address], [place] [id number] Nov, [facility] [address] [id number] [address] [place] [address], [place] [id number] Oct, [facility] [address] [id number] [address] [place] [address], [place] [id number] Oct, [facility] [address] [id number] [address] [place] [address], [place] [id number] Aug, [facility] [address] [id number] [address] [place] [address], [place] [id number] Jul, [facility] [address] [id number] [address] [place] [address], [place] [id number] 15 Jun, 2011 [facility] [address] [id number] [address] [place] [address], [place] [id number] 14 Jun, 2011 [facility] [address] [id number] [address] [place] [address], [place] [id number] 31 May, 2011 [facility] [address] [id number] [address] [place] [address], [place] [id number] 31 May, 2011 [facility] [address] [id number] [address] [place] [phone] Aug, [facility] [address] [id number] [address] [place] [id number] Jul, [facility] [address] [id number] [address] [place] [id number] Jul, [facility] [address] [id number] [address] [place] [id number] Jun, [facility] [address] [id number] [address] [place] [id number] Jun, [facility] [address] [id number] [address] [place] [phone] Jun, [facility] [address] [id number] [address] [place] [id number] Jun, [facility] [address] [id number] [address] [place] [id number] Jun, [facility] [address] [id number] [address] [place] [id number] May, [facility] [address] [id number] [address] [place] [phone] May, [facility] [address] [id number] [address] [place] [phone] May, IMMUNIZATIONS No Known Immunizations SOCIAL HISTORY Never Assessed REASON FOR VISIT Pyschiatric intake -[facility] PLAN OF CARE Activity Details Follow Up 2 Months Reason: VITAL SIGNS Height 69 in 2018-01-20 Weight 216 lbs 2018-01-20 Heart Rate 100 bpm 2018-01-20 Respiratory Rate 20 2018-01-20 BMI 31.89 kg/m2 2018-01-20 Blood pressure systolic 130 mmHg 2018-01-20 Blood pressure diastolic 68 mmHg 2018-01-20 MEDICATIONS Medication Instructions Dosage Frequency Start Date End Date Duration S tatus ibuprofen Active Methylphenidate HCl 10 MG Orally Twice a day 1 tablet 12h Jan, Jan, 14 days Active RESULTS No Results PROCEDURES No Known procedures INSTRUCTIONS MEDICATIONS ADMINISTERED No Known Medications MEDICAL (GENERAL) HISTORY Type Description Date Medical History attention deficit hyperactivity disorder Hospitalization History [facility] P[facility] 04/2016
--- OUTSIDE RECORDS SUMMARY | 2020-02-16 14:21 | XMS REPORT ---
Author Author Andrew REHMAN Organization [facility] Address [address] [place] [address] Care Team Providers Care Rehabilitation Inspector Name Role Phone GREER REHMAN Unavailable PROBLEMS Type Condition ICD9-CM Code SCM22-CN Code Onset Dates Condition S tatus SNOMED Code Problem Attention deficit hyperactiv ity disorder (ADHD), predominantly inattentive type F90.0 Active 14569038 Problem Mood disorder F39 Active 801493 05 Problem Attention deficit hyperactivity disorder (ADHD), combi david type F90.2 Active [id number] ALLERGIES No Known Allergies ENCOUNTERS Encounter Location Date Diagnosis [facility] [address] [facility] [id number] [address] [place] [address] Feb, [facility] [address] [id number] [address] [place] [id number] Feb, [facility] [address] [id number] [address] [place] [address] Jan, Attention deficit hyperactiv ity disorder (ADHD), combined type F90.2 and High risk medication use Z79.8[address] [place], [place] [id number] 13 Sep, 2017 Acute cystitis without hematuria N30.00 and Acute suppurative otitis media of left ear with spontaneous rupture of tympanic membrane, recurrence not specified H66.012 [facility] [address] [place], [place] [id number] 57 Jul, Seborrheic keratoses L82.1 and Mood disorder F39 [address] [place], [place] [id number] 57 Jul, Attention deficit hyperactivity disorder (ADHD), predominantly inattentive type F90.0 [address] [place], [place] [id number] 57 Jul, Mood disorder F39 [facility] [address] [facility] [id number] [address] [place] [id number] Sep, [facility] [address] [id number] [address] [place] [phone] Aug, [facility] [address] [facility] [id number] [address] [place] [id number] Jul, [facility] [address] [id number] [address] [place] [phone] Jul, [facility] [address] [id number] [address] [place] [address] Jun, Attention deficit hyperactiv ity disorder (ADHD), combined type F90.2 [facility] [address] [id number] [address] [place] [address] May, [facility] [address] [facility] [id number] [address] [place] [address] Apr, Attention deficit hyperactiv ity disorder (ADHD), combined type F90.2 [facility] [address] [id number] [address] [place] [id number] Mar, Acute non-recurrent maxillar y sinusitis J01.00 [facility] [address] [facility] [id number] [address] [place] [address] Mar, Acute non-recurrent maxillar y sinusitis J01.00 [facility] [address] [facility] [id number] [address] [place] [id number] Mar, [facility] [address] [facility] [id number] [address] [place] [address] Feb, Gastroenteritis K52.9 [facility] [address] [facility] [id number] [address] [place] [address] Feb, [facility] [address] [facility] [id number] [address] [place] [phone] Jan, [facility] [address] [facility] [id number] [address] [place] [id number] December, [facility] [address] [facility] [id number] [address] [place] [id number] December, Rash R21 [facility] [address] [facility] [id number] [address] [place] [id number] Nov, [facility] [address] [facility] [id number] [address] [place] [phone] Nov, [facility] [address] [facility] [id number] [address] [place] [phone] Oct, [facility] [address] [facility] [id number] [address] [place] [id number] Oct, Attention deficit hyperactiv ity disorder (ADHD), combined type F90.2 [facility] [address] [facility] [id number] [address] [place] [id number] Sep, [facility] [address] [facility] [id number] [address] [place] [id number] Sep, Viral syndrome B34.9 and HSV (herpes simplex virus) infection B00.9 [facility] [address] [facility] [id number] [address] [place] [phone] Aug, [facility] [address] [facility] [id number] [address] [place] [id number] Aug, [facility] [address] [facility] [id number] [address] [place] [id number] Jul, [facility] [address] [facility] [id number] [address] [place] [id number] Jun, Gastroenteritis K52.9 [facility] [address] [facility] [id number] [address] [place] [phone] Jun, [facility] [address] [facility] [id number] [address] [place] [id number] Jun, Attention deficit hyperactiv ity disorder (ADHD), combined type F90.2 [facility] [address] [facility] [id number] [address] [place] [id number] Jun, [facility] [address] [id number] [address] [place] [address] May, 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 [facility] [address] [id number] [address] [place] [phone] May, [facility] [address] [id number] [address] [place] [phone] Apr, [facility] [address] [id number] [address] [place] [id number] Mar, [facility] [address] [id number] [address] [place] [phone] Feb, [facility] [address] [id number] [address] [place] [address] Jan, Poison janneth 692.6 [facility] [address] [id number] [address] [place] [id number] Jan, Attention deficit disorder ( ADD) 314.00 [facility] [address] [id number] [address] [place] [address] Jan, [facility] [address] [id number] [address] [place] [id number] Jan, Poison janneth dermatitis 692.6 [facility] [address] [id number] [address] [place] [phone] December, [facility] [address] [id number] [address] [place] [phone] Nov, [facility] [address] [id number] [address] [place] [phone] Nov, [facility] [address] [facility] [id number] [address] [place] [phone] Oct, [facility] [address] [facility] [id number] [address] [place] [id number] Oct, [facility] [address] [id number] [address] [place] [address], [place] [address] Oct, [facility] [address] [id number] [address] [place] [address], [place] [address] Oct, [facility] [address] [id number] [address] [place] [address], [place] [address] Oct, [facility] [address] [id number] [address] [place] [address], [place] [address] Oct, [facility] [address] [id number] [address] [place] [address], [place] [address] Oct, [facility] [address] [id number] [address] [place] [address], [place] [address] Oct, [facility] [address] [id number] [address] [place] [address], [place] [address] Sep, [facility] [address] [id number] [address] [place] [address], [place] [address] Sep, [facility] [address] [id number] [address] [place] [address], [place] [address] Aug, [facility] [address] [id number] [address] [place] [address], [place] [address] Aug, [facility] [address] [id number] [address] [place] [address], [place] [address] Aug, [facility] [address] [id number] [address] [place] [address], [place] [address] Aug, [facility] [address] [id number] [address] [place] [address], [place] [address] Aug, [facility] [address] [id number] [address] [place] [address], [place] [address] Aug, [facility] [address] [id number] [address] [place] [address], [place] [address] Jul, [facility] [address] [id number] [address] [place] [address], [place] [address] Jul, [facility] [address] [id number] [address] [place] [address], [place] [address] Jun, [facility] [address] [id number] [address] [place] [address], [place] [address] Jun, [facility] [address] [id number] [address] [place] [address], [place] [address] Jun, [facility] [address] [id number] [address] [place] [address], [place] [address] Jun, [facility] [address] [id number] [address] [place] [address], [place] [address] May, [facility] [address] [id number] [address] [place] [address], [place] [address] May, [facility] [address] [id number] [address] [place] [address], [place] [address] Apr, [facility] [address] [id number] [address] [place] [address], [place] [address] Apr, [facility] [address] [id number] [address] [place] [address], [place] [address] Mar, [facility] [address] [id number] [address] [place] [address], [place] [address] Mar, [facility] [address] [id number] [address] [place] [address], [place] [address] Feb, [facility] [address] [id number] [address] [place] [address], [place] [address] Feb, [facility] [address] [id number] [address] [place] [address], [place] [address] Feb, [facility] [address] [id number] [address] [place] [address], [place] [address] Feb, [facility] [address] [id number] [address] [place] [address], [place] [address] Jan, [facility] [address] [id number] [address] [place] [id number] Jan, [facility] [address] [id number] [address] [place] [address], [place] [address] Jan, [facility] [address] [id number] [address] [place] [address], [place] [address] Jan, [facility] [address] [id number] [address] [place] [address], [place] [address] December, [facility] [address] [id number] [address] [place] [address], [place] [address] December, [facility] [address] [id number] [address] [place] [address], [place] [address] December, [facility] [address] [id number] [address] [place] [address], [place] [address] December, [facility] [address] [id number] [address] [place] [address], [place] [address] Nov, [facility] [address] [id number] [address] [place] [address], [place] [address] Nov, [facility] [address] [id number] [address] [place] [address], [place] [address] Oct, [facility] [address] [id number] [address] [place] [address], [place] [address] Oct, [facility] [address] [id number] [address] [place] [address], [place] [address] Sep, [facility] [address] [id number] [address] [place] [address], [place] [address] Sep, [facility] [address] [id number] [address] [place] [address], [place] [address] Aug, [facility] [address] [id number] [address] [place] [address], [place] [address] Aug, [facility] [address] [id number] [address] [place] [address], [place] [address] Jul, [facility] [address] [id number] [address] [place] [address], [place] [address] Jul, [facility] [address] [id number] [address] [place] [address], [place] [address] Jun, [facility] [address] [id number] [address] [place] [address], [place] [address] Jun, [facility] [address] [id number] [address] [place] [address], [place] [address] Jun, [facility] [address] [id number] [address] [place] [address], [place] [address] Jun, [facility] [address] [id number] [address] [place] [address], [place] [address] May, [facility] [address] [id number] [address] [place] [address], [place] [address] May, [facility] [address] [id number] [address] [place] [address], [place] [address] May, [facility] [address] [id number] [address] [place] [address], [place] [address] Apr, [facility] [address] [id number] [address] [place] [address], [place] [address] Mar, [facility] [address] [id number] [address] [place] [address], [place] [address] Mar, [facility] [address] [id number] [address] [place] [address], [place] [address] Mar, [facility] [address] [id number] [address] [place] [address], [place] [address] Mar, [facility] [address] [id number] [address] [place] [address], [place] [address] Feb, [facility] [address] [id number] [address] [place] [address], [place] [address] Feb, [facility] [address] [id number] [address] [place] [address], [place] [address] Feb, [facility] [address] [id number] [address] [place] [address], [place] [address] Jan, [facility] [address] [id number] [address] [place] [address], [place] [address] Jan, [facility] [address] [id number] [address] [place] [address], [place] [address] December, [facility] [address] [id number] [address] [place] [address], [place] [address] Nov, [facility] [address] [id number] [address] [place] [address], [place] [address] Nov, [facility] [address] [id number] [address] [place] [address], [place] [address] Oct, [facility] [address] [id number] [address] [place] [address], [place] [address] Oct, [facility] [address] [id number] [address] [place] [address], [place] [address] Oct, [facility] [address] [id number] [address] [place] [address], [place] [address] Sep, [facility] [address] [id number] [address] [place] [address], [place] [address] Sep, [facility] [address] [id number] [address] [place] [address], [place] [address] Aug, [facility] [address] [id number] [address] [place] [address], [place] [address] Jun, [facility] [address] [id number] [address] [place] [address], [place] [address] Jun, [facility] [address] [id number] [address] [place] [address], [place] [address] Jun, [facility] [address] [id number] [address] [place] [address], [place] [address] Jun, [facility] [address] [id number] [address] [place] [address], [place] [address] Jun, [facility] [address] [id number] [address] [place] [address], [place] [address] Jun, [facility] [address] [id number] [address] [place] [address], [place] [address] Jun, [facility] [address] [id number] [address] [place] [address], [place] [address] Jun, [facility] [address] [id number] [address] [place] [address], [place] [address] May, [facility] [address] [id number] [address] [place] [address], [place] [address] May, [facility] [address] [id number] [address] [place] [address], [place] [address] May, [facility] [address] [id number] [address] [place] [address], [place] [address] May, [facility] [address] [id number] [address] [place] [address], [place] [address] May, [facility] [address] [id number] [address] [place] [address], [place] [address] May, [facility] [address] [id number] [address] [place] [address], [place] [address] 08 Apr, 2012 [facility] [address] [id number] [address] [place] [address], [place] [address] Apr, [facility] [address] [id number] [address] [place] [address], [place] [address] Mar, [facility] [address] [id number] [address] [place] [address], [place] [address] Feb, [facility] [address] [id number] [address] [place] [address], [place] [address] Jan, [facility] [address] [id number] [address] [place] [address], [place] [address] December, [facility] [address] [id number] [address] [place] [address], [place] [address] Nov, [facility] [address] [id number] [address] [place] [address], [place] [address] 24 Oct, 2011 [facility] [address] [id number] [address] [place] [address], [place] [address] 15 Oct, 2011 [facility] [address] [id number] [address] [place] [address], [place] [address] Aug, [facility] [address] [id number] [address] [place] [address], [place] [address] Jul, [facility] [address] [id number] [address] [place] [address], [place] [id number] 15 Jun, 2011 [facility] [address] [id number] [address] [place] [address], [place] [id number] 14 Jun, 2011 [facility] [address] [id number] [address] [place] [address], [place] [id number] May, [facility] [address] [id number] [address] [place] [address], [place] [id number] May, [facility] [address] [id number] [address] [place] [id number] Aug, [facility] [address] [id number] [address] [place] [address], [place] [address] Jul, [facility] [address] [id number] [address] [place] [phone] Jul, [facility] [address] [id number] [address] [place] [address], [place] [id number] Jun, [facility] [address] [id number] [address] [place] [address], [place] [address] Jun, [facility] [address] [id number] [address] [place] [phone] Jun, [facility] [address] [id number] [address] [place] [phone] Jun, [facility] [address] [facility] [id number] [address] [place] [id number] Jun, [facility] [address] [facility] [id number] [address] [place] [phone] May, [facility] [address] [facility] [id number] [address] [place] [id number] May, [facility] [address] [facility] [id number] [address] [place] [id number] May, IMMUNIZATIONS No Known Immunizations SOCIAL HISTORY Never Assessed REASON FOR VISIT [facility] shelter PLAN OF CARE VITAL SIGNS Height 69 in 2017-08-05 Weight 209 lbs 2017-08-05 Heart Rate 80 bpm 2017-08-05 Respiratory Rate 16 2017-08-05 BMI 30.86 kg/m2 2017-08-05 Blood pressure systolic 116 mmHg 2017-08-05 Blood pressure diastolic 80 mmHg 2017-08-05 MEDICATIONS Medication Instructions Dosage Frequency Start Date End Date Duration S tatus Fluvoxamine Maleate 100 MG Orally Once a day at noon 1 tablet Jul, 30 day(s) Active Amoxicillin 500 mg Orally 2 times a day 2 tablets 12h Jul, 17 Jul, 10 day(s) Active RESULTS No Results PROCEDURES No Known procedures INSTRUCTIONS MEDICATIONS ADMINISTERED No Known Medications MEDICAL (GENERAL) HISTORY Type Description Date Medical History attention deficit hyperactivity disorder Hospitalization History [facility] Pneumonia 04/2016
--- OUTSIDE RECORDS SUMMARY | 2020-02-16 14:21 | XMS REPORT ---
Author Author Andrew HAYES Organization [facility] Address Unknown Care Team Providers Care Lacquer Sizer Name Role Phone FODR HAYES Unavailable PROBLEMS Type Condition ICD9-CM Code QLO01-OB Code Onset Dates Condition S tatus SNOMED Code Problem Attention deficit hyperactivity disorder (ADHD), combi david type F90.2 Active [id number] ALLERGIES Unknown Allergies SOCIAL HISTORY No smoking Hx information available PLAN OF CARE Activity Details Follow Up 3 Months Reason: VITAL SIGNS Height 69 in 2016-07-01 Weight 207.8 lbs 2016-07-01 Respiratory Rate 20 2016-07-01 BMI 30.68 kg/m2 2016-07-01 MEDICATIONS Medication Instructions Dosage Frequency Start Date End Date Duration S tatus Methylphenidate HCl 20 MG Orally in morning 1/2 tablet at noon 1 ta blet Jun, Jul, 30 days Active RESULTS No Results PROCEDURES Procedure Date Ordered Related Diagnosis Body Site MH Office Visit, Est Pt., Level 3 Jul 01, 2016 IMMUNIZATIONS No Known Immunizations
--- OUTSIDE RECORDS SUMMARY | 2020-02-16 14:21 | XMS REPORT ---
Author Author Andrew HAYES Organization [employer] Address Unknown Phone Unavailable Care Team Providers Care Manager Wellness Name Role Phone FORD HAYES CP Unavailable [...] Date End Date Status Dosage Methylphenidate HCl [facility] [address]-01 20 MG Orally Twice a day Dr. Gusman to sign for Chun February 01, 2015 1 tablet Results No Known Results Summary Purpose [employer] Submission
--- OUTSIDE RECORDS SUMMARY | 2020-02-16 14:21 | XMS REPORT ---
Author Andrew Rowe Organization [employer] Address Unknown Phone Unavailable Care Team Providers Care E Commerce Web Developer Name Role Phone FORD HAYES CP Unavailable Allergies No Known Allergies Problems Problem Type Condition Code Onset Dates Condition Statu s Problem Attention deficit hyperactivity disorder (ADHD), combi david type F90.2 Active Medications Medication Code System Code Instructions Start Date End Date Status Dosage Methylphenidate HCl [facility] [address]-31 20 mg Orally in morning 1/2 tablet at noon Apr 29, 2016 1 tablet Results No Known Results Summary Purpose [employer] Submission
--- OUTSIDE RECORDS SUMMARY | 2020-02-16 14:21 | XMS REPORT ---
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 Name Role Phone GREER REHMAN Unavailable PROBLEMS Type Condition ICD9-CM Code ZNH39-GM Code Onset Dates Condition S tatus SNOMED Code Problem Attention deficit hyperactiv ity disorder (ADHD), predominantly inattentive type F90.0 Active 56083527 Problem Mood disorder F39 Active 208813 05 Problem Attention deficit hyperactivity disorder (ADHD), combi david type F90.2 Active [id number] ALLERGIES No Known Allergies ENCOUNTERS Encounter Location Date Diagnosis [facility] [address] [facility] [id number] [address] [place] [id number] Feb, [facility] [address] [facility] [id number] [address] [place] [id number] Jan, [address] [id number] Sep, 2017 Acute cystitis without hematuria N30.00 and Acute suppurative otitis media of left ear with spontaneous rupture of tympanic membrane, recurrence not specified H66.[address] [id number] Jul, Seborrheic keratoses L82.1 and Mood disorder F39 [address] [id number] Jul, Attention deficit hyperactivity disorder (ADHD), predominantly inattentive type F90.[address] [id number] Jul, Mood disorder F39 [facility] [address] [id number] [address] [place] [address] Sep, [facility] [address] [facility] [id number] [address] [place] [phone] Aug, [facility] [address] [id number] [address] [place] [address] Jul, [facility] [address] [id number] [address] [place] [address] Jul, [facility] [address] [id number] [address] [place] [address] Jun, Attention deficit hyperactiv ity disorder (ADHD), combined type F90.2 [facility] [address] [id number] [address] [place] [address] May, [facility] [address] [id number] [address] [place] [address] Apr, Attention deficit hyperactiv ity disorder (ADHD), combined type F90.2 [facility] [address] [id number] [address] [place] [address] Mar, Acute non-recurrent maxillar y sinusitis J01.00 [facility] [address] [id number] [address] [place] [address] Mar, Acute non-recurrent maxillar y sinusitis J01.00 [facility] [address] [id number] [address] [place] [address] Mar, [facility] [address] [facility] [id number] [address] [place] [address] Feb, Gastroenteritis K52.9 [facility] [address] [facility] [id number] [address] [place] [address] Feb, [facility] [address] [id number] [address] [place] [address] Jan, [facility] [address] [id number] [address] [place] [address] December, [facility] [address] [facility] [id number] [address] [place] [address] December, Rash R21 [facility] [address] [facility] [id number] [address] [place] [address] Nov, [facility] [address] [facility] [id number] [address] [place] [address] Nov, [facility] [address] [facility] [id number] [address] [place] [address] Oct, [facility] [address] [facility] [id number] [address] [place] [address] Oct, Attention deficit hyperactiv ity disorder (ADHD), combined type F90.2 [facility] [address] [facility] [id number] [address] [place] [address] Sep, [facility] [address] [facility] [id number] [address] [place] [address] Sep, Viral syndrome B34.9 and HSV (herpes simplex virus) infection B00.9 [facility] [address] [place] [id number] [address] [place] [address] Aug, [facility] [address] [facility] [id number] [address] [place] [address] Aug, [facility] [address] [facility] [id number] [address] [place] [address] Jul, [facility] [address] [place] [place] [id number] [address] [place] [address] Jun, Gastroenteritis K52.9 [facility] [address] [facility] [id number] [address] [place] [address] Jun, [facility] [address] [facility] [id number] [address] [place] [address] Jun, Attention deficit hyperactiv ity disorder (ADHD), combined type F90.2 [facility] [address] [facility] [id number] [address] [place] [address] Jun, [facility] [address] [facility] [id number] [address] [place] [address] May, 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 [address] [id number] [address] [place] [address] [address], [address] [facility] [address] [id number] [address] [place] [address] Mar, [facility] [address] [id number] [address] [place] [address] Feb, [facility] [address] [id number] [address] [place] [address] Jan, Poison janneth 692.6 [facility] [address] [id number] [address] [place] [address] Jan, Attention deficit disorder ( ADD) 314.00 [facility] [address] [id number] [address] [place] [address] Jan, [facility] [address] [id number] [address] [place] [address] Jan, Poison janneth dermatitis 692.6 [facility] [address] [id number] [address] [place] [address] December, [facility] [address] [id number] [address] [place] [address] Nov, [facility] [address] [id number] [address] [place] [address] Nov, [facility] [address] [id number] [address] [place] [address] Oct, [facility] [address] [id number] [address] [place] [address] Oct, [facility] [address] [id number] [address] [place] [address] Oct, [facility] [address] [id number] [address] [place] [address] Oct, [facility] [address] [id number] [address] [place] [address], [place] [address] 05 Oct, 2014 [facility] [address] [id number] [address] [place] [address], [place] [address] Oct, [facility] [address] [id number] [address] [place] [address], [place] [address] Oct, [facility] [address] [id number] [address] [place] [address], [place] [address] Oct, [facility] [address] [id number] [address] [place] [address], [place] [address] Sep, [facility] [address] [id number] [address] [place] [address], [place] [address] Sep, [facility] [address] [id number] [address] [place] [address], [place] [address] Aug, [facility] [address] [id number] [address] [place] [address], [place] [address] Aug, [facility] [address] [id number] [address] [place] [address], [place] [address] Aug, [facility] [address] [id number] [address] [place] [address], [place] [address] Aug, [facility] [address] [id number] [address] [place] [address], [place] [address] Aug, [facility] [address] [id number] [address] [place] [address], [place] [address] Aug, [facility] [address] [id number] [address] [place] [address], [place] [address] Jul, [facility] [address] [id number] [address] [place] [address], [place] [address] Jul, [facility] [address] [id number] [address] [place] [address], [place] [address] Jun, [facility] [address] [id number] [address] [place] [address], [place] [address] Jun, [facility] [address] [id number] [address] [place] [address], [place] [address] Jun, [facility] [address] [id number] [address] [place] [address], [place] [address] Jun, [facility] [address] [id number] [address] [place] [address], [place] [address] May, [facility] [address] [id number] [address] [place] [address], [place] [address] May, [facility] [address] [id number] [address] [place] [address], [place] [address] Apr, [facility] [address] [id number] [address] [place] [address], [place] [address] Apr, [facility] [address] [id number] [address] [place] [address], [place] [address] Mar, [facility] [address] [id number] [address] [place] [address], [place] [address] Mar, [facility] [address] [id number] [address] [place] [address], [place] [address] Feb, [facility] [address] [id number] [address] [place] [address], [place] [address] Feb, [facility] [address] [id number] [address] [place] [address], [place] [address] Feb, [facility] [address] [id number] [address] [place] [address], [place] [address] Feb, [facility] [address] [id number] [address] [place] [address], [place] [address] Jan, [facility] [address] [id number] [address] [place] [address], [place] [address] Jan, [facility] [address] [id number] [address] [place] [address], [place] [address] Jan, [facility] [address] [id number] [address] [place] [address] Jan, [facility] [address] [id number] [address] [place] [address], [place] [address] December, [facility] [address] [id number] [address] [place] [address], [place] [address] December, [facility] [address] [id number] [address] [place] [address], [place] [address] December, [facility] [address] [id number] [address] [place] [address], [place] [address] December, [facility] [address] [id number] [address] [place] [address], [place] [address] Nov, [facility] [address] [id number] [address] [place] [address], [place] [address] Nov, [facility] [address] [id number] [address] [place] [address], [place] [address] Oct, [facility] [address] [id number] [address] [place] [address], [place] [address] Oct, [facility] [address] [id number] [address] [place] [address], [place] [address] Sep, [facility] [address] [id number] [address] [place] [address], [place] [address] Sep, [facility] [address] [id number] [address] [place] [address], [place] [address] Aug, [facility] [address] [id number] [address] [place] [address], [place] [address] Aug, [facility] [address] [id number] [address] [place] [address], [place] [address] Jul, [facility] [address] [id number] [address] [place] [address], [place] [address] Jul, [facility] [address] [id number] [address] [place] [address], [place] [address] Jun, [facility] [address] [id number] [address] [place] [address], [place] [address] Jun, [facility] [address] [id number] [address] [place] [address], [place] [address] Jun, [facility] [address] [id number] [address] [place] [address], [place] [address] Jun, [facility] [address] [id number] [address] [place] [address], [place] [address] May, [facility] [address] [id number] [address] [place] [address], [place] [address] May, [facility] [address] [id number] [address] [place] [address], [place] [address] May, [facility] [address] [id number] [address] [place] [address], [place] [address] Apr, [facility] [address] [id number] [address] [place] [address], [place] [address] Mar, [facility] [address] [id number] [address] [place] [address], [place] [address] Mar, [facility] [address] [id number] [address] [place] [address], [place] [address] Mar, [facility] [address] [id number] [address] [place] [address], [place] [address] Mar, [facility] [address] [id number] [address] [place] [address], [place] [address] Feb, [facility] [address] [id number] [address] [place] [address], [place] [address] Feb, [facility] [address] [id number] [address] [place] [address], [place] [address] Feb, [facility] [address] [id number] [address] [place] [address], [place] [address] Jan, [facility] [address] [id number] [address] [place] [address], [place] [address] Jan, [facility] [address] [id number] [address] [place] [address], [place] [address] December, [facility] [address] [id number] [address] [place] [address], [place] [address] Nov, [facility] [address] [id number] [address] [place] [address], [place] [address] Nov, [facility] [address] [id number] [address] [place] [address], [place] [address] Oct, [facility] [address] [id number] [address] [place] [address], [place] [address] Oct, [facility] [address] [id number] [address] [place] [address], [place] [address] Oct, [facility] [address] [id number] [address] [place] [address], [place] [address] Sep, [facility] [address] [id number] [address] [place] [address], [place] [address] Sep, [facility] [address] [id number] [address] [place] [address], [place] [address] Aug, [facility] [address] [id number] [address] [place] [address], [place] [address] Jun, [facility] [address] [id number] [address] [place] [address], [place] [address] Jun, [facility] [address] [id number] [address] [place] [address], [place] [address] Jun, [facility] [address] [id number] [address] [place] [address], [place] [address] Jun, [facility] [address] [id number] [address] [place] [address], [place] [address] Jun, [facility] [address] [id number] [address] [place] [address], [place] [address] Jun, [facility] [address] [id number] [address] [place] [address], [place] [address] Jun, [facility] [address] [id number] [address] [place] [address], [place] [address] Jun, [facility] [address] [id number] [address] [place] [address], [place] [address] May, [facility] [address] [id number] [address] [place] [address], [place] [address] May, [facility] [address] [id number] [address] [place] [address], [place] [address] May, [facility] [address] [id number] [address] [place] [address], [place] [address] May, [facility] [address] [id number] [address] [place] [address], [place] [address] May, [facility] [address] [id number] [address] [place] [address], [place] [address] May, [facility] [address] [id number] [address] [place] [address], [place] [address] Apr, [facility] [address] [id number] [address] [place] [address], [place] [address] Apr, [facility] [address] [id number] [address] [place] [address], [place] [address] Mar, [facility] [address] [id number] [address] [place] [address], [place] [address] Feb, [facility] [address] [id number] [address] [place] [address], [place] [address] Jan, [facility] [address] [id number] [address] [place] [address], [place] [address] December, [facility] [address] [id number] [address] [place] [address], [place] [address] Nov, [facility] [address] [id number] [address] [place] [address], [place] [address] Oct, [facility] [address] [id number] [address] [place] [address], [place] [address] 15 Oct, 2011 [facility] [address] [id number] [address] [place] [address], [place] [address] 10 Aug, 2011 [facility] [address] [id number] [address] [place] [address], [place] [address] 22 Jul, 2011 [facility] [address] [id number] [address] [place] [address], [place] [address] 15 Jun, 2011 [facility] [address] [id number] [address] [place] [address], [place] [address] 14 Jun, 2011 [facility] [address] [id number] [address] [place] [address], [place] [address] 31 May, 2011 [facility] [address] [id number] [address] [place] [address], [place] [address] 31 May, 2011 [facility] [address] [id number] [address] [place] [address], [place] [address] Aug, [facility] [address] [id number] [address] [place] [address], [place] [address] Jul, [facility] [address] [id number] [address] [place] [address] Jul, [facility] [address] [id number] [address] [place] [address] Jun, [facility] [address] [id number] [address] [place] [address] 17 Jun, 2010 [facility] [address] [id number] [address] [place] [address], [place] [id number] Jun, [facility] [address] [id number] [address] [place] [id number] Jun, [facility] [address] [id number] [address] [place] [id number] Jun, [facility] [address] [id number] [address] [place] [id number] May, [facility] [address] [facility] [id number] [address] [place] [phone] May, [facility] [address] [facility] [id number] [address] [place] [phone] May, IMMUNIZATIONS No Known Immunizations SOCIAL HISTORY Never Assessed REASON FOR VISIT PLAN OF CARE VITAL SIGNS Height 69 in 2017-07-22 Weight 208 lbs 2017-07-22 Heart Rate 80 bpm 2017-07-22 Respiratory Rate 16 2017-07-22 BMI 30.71 kg/m2 2017-07-22 Blood pressure systolic 100 mmHg 2017-07-22 Blood pressure diastolic 80 mmHg 2017-07-22 MEDICATIONS Unknown Medications RESULTS No Results PROCEDURES No Known procedures INSTRUCTIONS MEDICATIONS ADMINISTERED No Known Medications MEDICAL (GENERAL) HISTORY Type Description Date Medical History attention deficit hyperactivity disorder Hospitalization History [facility] Pneumonia 04/2016
--- OUTSIDE RECORDS SUMMARY | 2020-02-16 14:21 | XMS REPORT ---
Author Author Andrew GUSMAN Organization [employer] Address Unknown Phone Unavailable Care Team Providers [employer] Biller Name Role Phone ANETA GUSMAN CP Unavailable Allergies, Adverse Reactions, Alerts Substance Reaction Event Type N.K.D.A. 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 Gusman to sign for Chun February 01, 2015 1 tablet Procedures Procedure Coding System Code Date Office Visit, Est Pt., Level 2 CPT-[address] 2014 Vital Signs Date/Time: Jun 09, 2015 Temperature 97.3 F Weight 204.8 lbs Height 69 in BMI 30.24 Index Blood Pressure Diastolic 90 mmHg Blood Pressure Systolic 116 mmHg Cardiac Monitoring Heart Rate 92 bpm Results No Known Results Summary Purpose [employer] Submission
--- OUTSIDE RECORDS SUMMARY | 2020-02-16 14:21 | XMS REPORT ---
Author Author Andrew Garcia Doctor Organization [facility] Address Unknown Phone Unavailable Care Team Providers Care Skip Pit Worker Name Role Phone Migration, Doctor Unavailable Unavailable PROBLEMS Type Condition ICD9-CM Code [id number] Code Onset Dates Condition S tatus SNOMED Code Problem Attention deficit hyperactivity disorder (ADHD), combi david type F90.2 Active 749190042 Problem Gastroesophageal reflux disease, esophagitis pre sence not specified K21.9 Active 316146545 Problem Gastroesophageal reflux disease, esophagitis pre sence not specified K21.9 Active 786162980 Problem Mood disorder F39 Active [id number] Problem Attention deficit hyperactiv ity disorder (ADHD), predominantly inattentive type F90.0 Active 79989026 Problem Adjustment disorder with anxiety F43.22 Active 87377590 Problem Generalized anxiety disorder F41.1 A ctive [id number] ALLERGIES No Information ENCOUNTERS Encounter Location Date Diagnosis [facility] [address] [address] Sep, [facility] [address] [address] Sep, [facility] [address] [address] Aug, [facility] [address] [address] Aug, [facility] [address] [facility] [id number] [place] [address] Jul, Laceration of left index fin guerline without foreign body without damage to nail, initial encounter S61.211A and Encounter for immunization Z23 [facility] [address] [address] Jul, Abnormal LFTs R94.5 [facility] [address] [address] Jul, Abnormal LFTs R94.5 [place] [address] [address] Jul, Gastroesophageal reflux disease, esophag itis presence not specified K21.9 and Diarrhea, unspecified type R19.7 [place] [address] [address] May, Bronchitis J40 [place] [address] [address] May, Attention deficit hyperactivity disorder (ADHD), combined type F90.2 [place] [address] [place] [id number] Apr, Adjustment disorder with anxiety F43.22 [place] [address] [address] Apr, Generalized anxiety disorder F41.1 and A ttention deficit hyperactivity disorder (ADHD), combined type F90.2 [place] [address] [address] Mar, Generalized anxiety disorder F41.1 and A ttention deficit hyperactivity disorder (ADHD), combined type F90.2 [place] [address] [address] Feb, Attention deficit hyperactivity disorder (ADHD), combined type F90.2 and Generalized anxiety disorder F41.1 [place] [address] [address] Feb, Adjustment disorder with anxiety F43.22 [place] [address] [address] Jan, Adjustment disorder with anxiety F43.[address] [address] Aug, Blood in stool K92.1 and History of hemo rrhoids Z87.[address] [address] Jul, Attention deficit hyperactivity disorder (ADHD), combined type F90.2 [facility] [address] [address] 19 Jul, 2018 Attention deficit hyperactivity disorder (ADHD), combined type F90.2 and Adjustment disorder with anxiety F43.22 [facility] [address] [address] 26 Jun, 2018 Bloody stools K92.1 and Acute bilateral low back pain without sciatica M54.5 [facility] [address] [address] 08 Jun, 2018 Attention deficit hyperactivity disorder (ADHD), combined type F90.2 [facility] [address] [address] 15 May, 2018 Attention deficit hyperactivity disorder (ADHD), combined type F90.2 [facility] [address] [address] 10 Apr, 2018 Attention deficit hyperactivity disorder (ADHD), combined type F90.2 [facility] [address] [address] Mar, Attention deficit hyperactivity disorder (ADHD), combined type F90.2 [facility] [address] [address] Mar, Attention deficit hyperactivity disorder (ADHD), combined type F90.2 [facility] [address] [address] Mar, Attention deficit hyperactivity disorder (ADHD), combined type F90.2 and High risk medication use Z79.899 [facility] [address] [address] Mar, Gastroenteritis K52.9 [facility] [address] [address] Feb, Attention deficit hyperactivity disorder (ADHD), combined type F90.2 [facility] [address] [address] 05 Jan, 2018 Attention deficit hyperactivity disorder (ADHD), combined type F90.2 and High risk medication use Z79.899 [place] [address] [place], [place] [id number] 13 Sep, 2017 Acute cystitis without hematuria N30.00 and Acute suppurative otitis media of left ear with spontaneous rupture of tympanic membrane, recurrence not specified H66.012 [place] [address] [place] [id number] 57 Jul, Seborrheic keratoses L82.1 and Mood disorder F39 [place] [address] [place] [id number] 57 Jul, Attention deficit hyperactivity disorder (ADHD), predominantly inattentive type F90.[address] [id number] 57 Jul, Mood disorder F39 [facility] [address] [address] Sep, [facility] [address] [address] Aug, [facility] [address] [address] Jul, [facility] [address] [address] Jul, [facility] [address] [address] Jun, Attention deficit hyperactivity disorder (ADHD), combined type F90.2 [facility] [address] [address] May, [facility] [address] [address] Apr, Attention deficit hyperactivity disorder (ADHD), combined type F90.2 [facility] [address] [address] Mar, Acute non-recurrent maxillary sinusitis J01.00 [facility] [address] [facility] [id number] [address] [address] Mar, Acute non-recurrent maxillar y sinusitis J01.00 [facility] [address] [id number] [place] [address] Mar, [facility] [address] [facility] [id number] [address] [address] Feb, Gastroenteritis K52.9 [facility] [address] [id number] [place] [address] Feb, [facility] [address] [address] Jan, [facility] [address] [place] [id number] [place] [address] December, [facility] [address] [address] December, Rash R21 [facility] [address] [place] [id number] [place] [address] Nov, [facility] [address] [address] Nov, [facility] [address] [place] [id number] [place] [address] Oct, [facility] [address] [address] Oct, Attention deficit hyperactivity disorder (ADHD), combined type F90.2 [facility] [address] [place] [id number] [place] [address] Sep, [facility] [address] [place] [address] [id number] [place] [address] Sep, Viral syndrome B34.9 and HSV (herpes sim plex virus) infection B00.9 [facility] [address] [address] Aug, [facility] [address] [address] Aug, [facility] [address] [address] Jul, [facility] [address] [address] Jun, Gastroenteritis K52.9 [facility] [address] [address] Jun, [facility] [address] [address] Jun, Attention deficit hyperactivity disorder (ADHD), combined type F90.2 [facility] [address] [address] Jun, [facility] [address] [address] May, 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 [facility] [address] [address] May, [facility] [address] [address] Apr, [facility] [address] [address] Mar, [facility] [address] [address] Feb, [facility] [address] [address] Jan, Poison janneth 692.6 [facility] [address] [address] Jan, Attention deficit disorder (ADD) 314.00 [facility] [address] [address] Jan, [facility] [address] [address] Jan, Poison janneth dermatitis 692.6 [facility] [address] [address] December, [facility] [address] [address] Nov, [facility] [place] [facility] [address] [id number] [place] [address] 13 Nov, 2014 [facility] [place] [facility] [address] [id number] [place] [address] Oct, [facility] [place] [facility] [address] [id number] [place] [address] Oct, [facility] [place] [facility] [address] [id number] [place] [address] Oct, [facility] [place] [facility] [address] [id number] [place] [address] Oct, [facility] [place] [facility] [address] [id number] [place] [address] Oct, [facility] [place] [facility] [address] [id number] [place] [address] Oct, [facility] [place] [facility] [address] [id number] [place] [address] Oct, [facility] [place] [facility] [address] [id number] [place] [address] Oct, [facility] [place] [facility] [address] [id number] [place] [address] Sep, [facility] [place] [facility] [address] [id number] [place] [address] Sep, [facility] [place] [facility] [address] [id number] [place] [address] Aug, [facility] [place] [facility] [address] [id number] [place] [address] Aug, [facility] [place] [facility] [address] [id number] [place] [address] Aug, [facility] [place] [facility] [address] [id number] [place] [address] Aug, [facility] [place] [facility] [address] [id number] [place] [address] Aug, [facility] [place] [facility] [address] [id number] [place] [address] Aug, [facility] [place] [facility] [address] [facility] [id number] [place] [address] Jul, [facility] [place] [facility] [address] [facility] [id number] [place] [address] Jul, [facility] [place] [facility] [address] [id number] [place] [address] Jun, [facility] [place] [facility] [address] [id number] [place] [address] Jun, [facility] [place] [facility] [address] [facility] [id number] [place] [address] Jun, [facility] [place] [facility] [address] [id number] [place] [address] Jun, [facility] [place] [facility] [address] [id number] [place] [address] May, [facility] [place] [facility] [address] [id number] [place] [address] May, [facility] [place] [facility] [address] [facility] [id number] [place] [address] Apr, [facility] [place] [facility] [address] [id number] [place] [address] Apr, [facility] [place] [facility] [address] [id number] [place] [address] Mar, [facility] [place] [facility] [address] [id number] [place] [address] Mar, [facility] [place] [facility] [address] [facility] [id number] [place] [address] Feb, [facility] [place] [facility] [address] [facility] [id number] [place] [address] Feb, [facility] [place] [facility] [address] [id number] [place] [address] Feb, [facility] [place] [facility] [address] [id number] [facility] [place] [address] Feb, [facility] [place] [facility] [address] [id number] [place] [address] Jan, [facility] [place] [facility] [address] [id number] [place] [address] Jan, [facility] [place] [facility] [address] [id number] [place] [address] Jan, [facility] [place] [facility] [address] [id number] [place] [address] Jan, [facility] [place] [facility] [address] [id number] [place] [address] December, [facility] [place] [facility] [address] [id number] [place] [address] December, [facility] [place] [facility] [address] [id number] [place] [address] December, [facility] [place] [facility] [address] [id number] [place] [address] December, [facility] [place] [facility] [address] [id number] [place] [address] Nov, [facility] [place] [facility] [address] [id number] [place] [address] Nov, [facility] [place] [facility] [address] [id number] [place] [address] Oct, [facility] [place] [facility] [address] [id number] [place] [address] Oct, [facility] [place] [facility] [address] [id number] [place] [address] Sep, [facility] [place] [facility] [address] [id number] [place] [address] Sep, [facility] [place] [facility] [address] [id number] [place] [address] Aug, [facility] [place] [facility] [address] [id number] [place] [address] Aug, [facility] [place] [facility] [address] [id number] [place] [address] Jul, [facility] [place] [facility] [address] [id number] [place] [address] Jul, [facility] [place] [facility] [address] [id number] [place] [address] Jun, [facility] [place] [facility] [address] [id number] [place] [address] Jun, [facility] [place] [facility] [address] [id number] [place] [address] Jun, [facility] [place] [facility] [address] [id number] [place] [address] Jun, [facility] [place] [facility] [address] [id number] [place] [address] May, [facility] [place] [facility] [address] [id number] [place] [address] May, [facility] [place] [facility] [address] [id number] [place] [address] May, [facility] [place] [facility] [address] [id number] [place] [address] Apr, [facility] [place] [facility] [address] [id number] [place] [address] Mar, [facility] [place] [facility] [address] [id number] [place] [address] Mar, [facility] [place] [facility] [address] [id number] [place] [address] Mar, [facility] [place] [facility] [address] [id number] [place] [address] Mar, [facility] [place] [facility] [address] [id number] [place] [address] Feb, [facility] [place] [facility] [address] [id number] [place] [address] Feb, [facility] [place] [facility] [address] [id number] [place] [address] Feb, [facility] [place] [facility] [address] [id number] [place] [address] Jan, [facility] [place] [facility] [address] [id number] [place] [address] Jan, [facility] [place] [facility] [address] [id number] [place] [address] December, [facility] [place] [facility] [address] [id number] [place] [address] Nov, [facility] [place] [facility] [address] [id number] [place] [address] Nov, [facility] [place] [facility] [address] [id number] [place] [address] Oct, [facility] [place] [facility] [address] [id number] [place] [address] Oct, [facility] [place] [facility] [address] [id number] [place] [address] Oct, [facility] [place] [facility] [address] [id number] [place] [address] Sep, [facility] [place] [facility] [address] [id number] [place] [address] Sep, [facility] [place] [facility] [address] [id number] [place] [address] Aug, [facility] [place] [facility] [address] [id number] [place] [address] Jun, [facility] [place] [facility] [address] [id number] [place] [address] Jun, [facility] [place] [facility] [address] [id number] [place] [address] Jun, [facility] [place] [facility] [address] [id number] [place] [address] Jun, [facility] [place] [facility] [address] [id number] [place] [address] Jun, [facility] [place] [facility] [address] [id number] [place] [address] Jun, [facility] [place] [facility] [address] [id number] [place] [address] Jun, [facility] [place] [facility] [address] [id number] [place] [address] Jun, [facility] [place] [facility] [address] [id number] [place] [address] May, [facility] [place] [facility] [address] [id number] [place] [address] May, [facility] [place] [facility] [address] [id number] [place] [address] May, [facility] [place] [facility] [address] [id number] [place] [address] May, [facility] [place] [facility] [address] [id number] [place] [address] May, [facility] [place] [facility] [address] [id number] [place] [address] May, [facility] [place] [facility] [address] [id number] [place] [address] Apr, [facility] [place] [facility] [address] [id number] [place] [address] Apr, [facility] [place] [facility] [address] [id number] [place] [address] Mar, [facility] [place] [facility] [address] [id number] [place] [address] Feb, [facility] [place] [facility] [address] [id number] [place] [address] Jan, [facility] [place] [facility] [address] [id number] [place] [address] December, [facility] [place] [facility] [id number] [place] [address] Nov, [facility] [place] [facility] [address] [id number] [place] [address] Oct, [facility] [place] [facility] [id number] [place] [address] Oct, [facility] [address] [id number] [place] [address] 10 Aug, 2011 [facility] [address] [id number] [place] [address] 22 Jul, 2011 [facility] [address] [id number] [place] [address] 15 Jun, 2011 [facility] [address] [id number] [place] [address] 14 Jun, 2011 [facility] [address] [id number] [place] [address] 31 May, 2011 [facility] [address] [id number] [place] [address] 31 May, 2011 [facility] [address] [id number] [place] [address] Aug, [facility] [address] [facility] [id number] [place] [address] 29 Jul, 2010 [facility] [address] [id number] [place] [address] Jul, [facility] [address] [id number] [place] [address] Jun, [facility] [address] [id number] [place] [address] 17 Jun, 2010 [facility] [address] [id number] [place] [address] Jun, [facility] [address] [id number] [place] [address] 04 Jun, 2010 [facility] [address] [id number] [place] [address] 03 Jun, 2010 [facility] [address] [facility] [id number] [place] [address] 18 May, 2010 [facility] [address] [facility] [id number] [place] [address] 15 May, 2010 [facility] [address] [id number] [place] [address] May, IMMUNIZATIONS No Known Immunizations SOCIAL HISTORY [...]
--- OUTSIDE RECORDS SUMMARY | 2020-02-16 14:21 | XMS REPORT ---
Author Author Andrew HAYES Organization [employer] Address Unknown Phone Unavailable Care Team Providers Care Bottle Label Inspector Name Role Phone FORD HAYES CP Unavailable [...] Date End Date Status Dosage Methylphenidate HCl [facility] [address]-23 20 MG Orally Twice a day Rashad to sign for Chun February 01, 2015 1 tablet Results No Known Results Summary Purpose [employer] Submission
--- OUTSIDE RECORDS SUMMARY | 2020-02-16 14:21 | XMS REPORT ---
Author Author Andrew HAYES Organization [employer] Address Unknown Phone Unavailable Care Team Providers Care Wheel Molder Name Role Phone FORD HAYES CP Unavailable [...] Date End Date Status Dosage Methylphenidate HCl [facility] [address]-20 20 MG Orally Twice a day Dr Gusman to sign for Chun February 01, 2015 1 tablet Results No Known Results Summary Purpose [employer] Submission
--- OUTSIDE RECORDS SUMMARY | 2020-02-16 14:21 | XMS REPORT ---
Author Author Andrew Machuca Organization [facility] Address Unknown Care Team Providers Care Interactive Media Marketing Strategist Name Role Phone FORD Machuca Unavailable PROBLEMS Type Condition ICD9-CM Code [id number] Code Onset Dates Condition S tatus SNOMED Code Problem Attention deficit hyperactivity disorder (ADHD), combi david type F90.2 Active 200406198 ALLERGIES Unknown Allergies SOCIAL HISTORY No smoking Hx information available PLAN OF CARE VITAL SIGNS MEDICATIONS Medication Instructions Dosage Frequency Start Date End Date Duration S tatus Methylphenidate HCl 20 mg Orally in morning 1/2 tablet at noon 1 ta blet Sep, 28 days Active RESULTS No Results PROCEDURES No Known procedures IMMUNIZATIONS No Known Immunizations
--- OUTSIDE RECORDS SUMMARY | 2020-02-16 14:21 | XMS REPORT ---
Author Andrew Byrnes [facility] [employer] Address Unknown Phone Unavailable Care Team Providers Care Assistant Real Estate Manager Name Role Phone JAVIER NAJERA CP Unavailable Allergies No Known Allergies Problems Problem Type Condition Code Onset Dates Condition Statu s Problem Contusion of unspecified site 924.9 Active Problem Acute pharyngitis 462 Active Problem Acute upper respiratory infections of unspecified site 465.9 Active Problem Cough 786.2 Active Problem Contact dermatitis and other eczema, due to unspecifie d cause 692.9 Active Problem Acute bronchitis 466.0 Active Medications No Known Medications Results No Known Results Summary Purpose [employer] Submission
--- OUTSIDE RECORDS SUMMARY | 2020-02-16 14:21 | XMS REPORT ---
Author Andrew Byrnes Organization [employer] Address Unknown Phone Unavailable Care Team Providers Care Supervisor Agricultural Education Name Role Phone JAVIER NAJERA CP Unavailable Allergies, Adverse Reactions, Alerts Substance Reaction Event Type N.K.D.A. Info Not Available Non Drug Allergy Problems Problem Type Condition Code Onset Dates Condition Statu s Assessment Acute non-recurrent maxillary sinusitis J01.00 Active Medications Medication Code System Code Instructions Start Date End Date Status Dosage Zovirax [facility] [address]-48 5 % Externally every 3 hrs Sep 26, 2015 1 application to affected area Amoxicillin [facility] [address]-50 500 MG Orally 3 times a day Apr 17, 2016 Apr 27, 2016 1 capsule Methylphenidate HCl [facility] [address]-11 20 mg TAKE ONE TABLET BY MOUTH TWICE DAILY Procedures Procedure Coding System Code Date Office Visit, Est Pt., Level 3 CPT-4 85651 A 2015 Vital Signs Date/Time: Apr 17, 2016 Cardiac Monitoring Heart Rate 76 bpm Weight 207.4 lbs Height 69 in BMI 30.62 Index Blood Pressure Diastolic 90 mmHg Blood Pressure Systolic 132 mmHg Results No Known Results Summary Purpose [employer] Submission
--- OUTSIDE RECORDS SUMMARY | 2020-02-16 14:21 | XMS REPORT ---
Author Author Andrew HAYES Organization [employer] Address Unknown Phone Unavailable Care Team Providers Care Cat Dog Or Other Pet Groomer Name Role Phone FORD HAYES CP Unavailable [...] Date End Date Status Dosage Methylphenidate HCl [facility] [address]-56 20 mg TAKE ONE TABLET BY MOUTH TWICE DAILY Results No Known Results Summary Purpose [employer] Submission
--- OUTSIDE RECORDS SUMMARY | 2020-02-16 14:21 | XMS REPORT ---
Author Author Andrew COX Organization [employer] Address Unknown Phone Unavailable Care Team Providers Care Shoemaking Finisher Name Role Phone ANETA COX CP Unavailable Allergies, Adverse Reactions, Alerts Substance [...] End Date Status Dosage Methylphenidate HCl [facility] [address]-75 20 MG Orally Twice a day Rashad to sign for Chun February 01, 2015 1 tablet Procedures Procedure Coding System Code Date Office Visit, Est Pt., Level 2 CPT-4 11125 N 2014 Vital Signs Date/Time: Jul 03, 2015 Temperature 97.4 F Weight 203 lbs Height 69 in BMI 29.97 Index Blood Pressure Diastolic 88 mmHg Blood Pressure Systolic 118 mmHg Cardiac Monitoring Heart Rate 78 bpm Results No Known Results Summary Purpose [employer] Submission
--- OUTSIDE RECORDS SUMMARY | 2020-02-16 14:21 | XMS REPORT ---
Author Author Andrew HAYES Organization [employer] Address Unknown Phone Unavailable Care Team Providers Care Clerk Stenographer Name Role Phone FORD HAYES CP Unavailable [...] Status Dosage Methylphenidate HCl [facility] [address]-40 20 mg TAKE ONE TABLET BY MOUTH TWICE DAILY Results No Known Results Summary Purpose [employer] Submission
--- OUTSIDE RECORDS SUMMARY | 2020-02-16 14:21 | XMS REPORT ---
Author Author Andrew HAYES Organization [facility] Address Unknown Care Team Providers Care Supervisor Fireworks Assembly Name Role Phone FORD HAYES Unavailable PROBLEMS Type Condition ICD9-CM Code [id number] Code Onset Dates Condition S tatus SNOMED Code Assessment Attention deficit hyperactivity disorder (ADHD), combined type F90.2 Apr, Active [id number] ALLERGIES Substance Reaction Event Type Date Status N.K.D.A. Unknown Non Drug Allergy Apr, Unknown SOCIAL HISTORY No smoking Hx information available PLAN OF CARE VITAL SIGNS Height 69 in 2016-04-29 Weight 201.6 lbs 2016-04-29 Heart Rate 108 bpm 2016-04-29 Respiratory Rate 20 2016-04-29 BMI 29.77 kg/m2 2016-04-29 Blood pressure systolic 124 mmHg 2016-04-29 Blood pressure diastolic 93 mmHg 2016-04-29 MEDICATIONS Medication Instructions Dosage Frequency Start Date End Date Duration S tatus Methylphenidate HCl 20 mg Orally in morning 1/2 tablet at noon 1 ta blet Apr, Active Zovirax 5 % Externally every 3 hrs 1 application to affected area 3h Sep, Active Augmentin 875-125 MG Orally every 12 hrs 1 tablet 12h Active RESULTS No Results PROCEDURES Procedure Date Ordered Related Diagnosis Body Site MH Office Visit, Est Pt., Level 3 Apr 29, 2016 IMMUNIZATIONS No Known Immunizations
--- OUTSIDE RECORDS SUMMARY | 2020-02-16 14:21 | XMS REPORT ---
Author Author Andrew DEVI Organization [employer] Address Unknown Phone Unavailable Care Team Providers Care Hairspring Studder Name Role Phone FORD DEVI CP Unavailable Allergies, Adverse Reactions, Alerts Substance Reaction Event Type N.K.D.A. Info Not Available Non Drug Allergy Problems Problem Type Condition Code Onset Dates Condition Statu s Problem Contusion of unspecified site 924.9 Active Problem Acute pharyngitis 462 Active Problem Acute upper respiratory infections of unspecified site 465.9 Active Problem Cough 786.2 Active Assessment Acute non-recurrent maxillary sinusitis J01.00 Active Problem Contact dermatitis and other eczema, due to unspecifie d cause 692.9 Active Problem Acute bronchitis 466.0 Active Medications Medication Code System Code Instructions Start Date End Date Status Dosage Zovirax [facility] [address]-41 5 % Externally every 3 hrs Sep 26, 2015 1 application to affected area Clobetasol Propionate [facility] [address]-78 0.05 % Externally Twice a day December 20, 2015 1 application to aff ected area Augmentin [facility] [address]-30 875-125 MG Orally every 12 hrs Au 2015Apr 22, 2016 1 tablet Methylphenidate HCl [facility] [address]-84 20 mg TAKE ONE TABLET BY MOUTH TWICE DAILY Procedures Procedure Coding System Code Date Office Visit, Est Pt., Level 3 CPT-4 05696 A 2015 Vital Signs Date/Time: Apr 12, 2016 Cardiac Monitoring Heart Rate 86 bpm Weight 205.8 lbs Height 69 in BMI 30.39 Index Blood Pressure Diastolic 88 mmHg Blood Pressure Systolic 134 mmHg Results No Known Results Summary Purpose [employer] Submission
--- OUTSIDE RECORDS SUMMARY | 2020-02-16 14:21 | XMS REPORT ---
Author Author Andrew HAYES Organization [employer] Address Unknown Phone Unavailable Care Team Providers Care Soda Fountain Operator Name Role Phone FORD HAYES CP Unavailable [...] Date End Date Status Dosage Methylphenidate HCl [facility] [address]-72 20 mg TAKE ONE TABLET BY MOUTH TWICE DAILY Results No Known Results Summary Purpose [employer] Submission
--- OUTSIDE RECORDS SUMMARY | 2020-02-16 14:22 | XMS REPORT | Continuity of Care Document ---
Author Organization Unknown Address Unknown Phone Unavailable Allergies Active Description Code Type Severity Reaction Onset Reported/Identified Relationship to Patient Clinical Status Yes NKDA NKDA Mild N/A 03/28/2009 Yes No Known Drug Allergies [id number] Drug Allergy Unknown N/A 10/21/2016 Medications There is no data. Problems Date Dx Coded Attending Type Code Diagnosis Diagnosed By 05/11/2010 CARINE LIN APRN 112.3 CANDIDIASIS, OF SKIN AND NAILS 05/11/2010 RILEY MORRIS CARINE AHMET 604.90 ORCHITIS AND EPIDIDYMITIS, UNSPECIFIED 05/11/2010 CARINE LIN APRN 112.3 CANDIDIASIS, OF SKIN AND NAILS 05/11/2010 RILEY MORRIS [facility] 604.90 ORCHITIS AND EPIDIDYMITIS, UNSPECIFIED 05/11/2010 112.3 CAND IDIASIS, OF SKIN AND NAILS 05/11/2010 604.90 ORC HITIS AND EPIDIDYMITIS, UNSPECIFIED 05/11/2010 112.3 CAND IDIASIS, OF SKIN AND NAILS 05/11/2010 604.90 ORC HITIS AND EPIDIDYMITIS, UNSPECIFIED 05/11/2010 MURALI HAWK DO 112.3 CANDIDIASIS, OF SKIN AND NAILS 05/11/2010 MURALI HAWK DO K 604.90 ORCHITIS AND EPIDIDYMITIS, UNSPECIFIED 05/11/2010 RILEY MORRIS CARINE AHMET 112.3 CANDIDIASIS, OF SKIN AND NAILS 05/11/2010 RILEY MORRIS [facility] 604.90 ORCHITIS AND EPIDIDYMITIS, UNSPECIFIED 05/11/2010 FAVIAN REES APRN L 112 .3 CANDIDIASIS, OF SKIN AND NAILS 05/11/2010 SYDNEY REES APRNWNYA L 604 .90 ORCHITIS AND EPIDIDYMITIS, UNSPECIFIED 05/11/2010 MURALI HAWK DO K 112.3 CANDIDIASIS, OF SKIN AND NAILS 05/11/2010 TOMY HAWK DOA K 604.90 ORCHITIS AND EPIDIDYMITIS, UNSPECIFIED 05/11/2010 112.3 CAND IDIASIS, OF SKIN AND NAILS 05/11/2010 604.90 ORC HITIS AND EPIDIDYMITIS, UNSPECIFIED 05/11/2010 ANETA OCX MD 112.3 CANDIDIASIS, OF SKIN AND NAILS 05/11/2010 ANETA COX MD 604.9 0 ORCHITIS AND EPIDIDYMITIS, UNSPECIFIED 05/11/2010 MADL RESUME WRITERJAMIL AlarconA L 112 .3 CANDIDIASIS, OF SKIN AND NAILS 05/11/2010 NEGRITA RESUME WRITER, FAVIAN L 604 .90 ORCHITIS AND EPIDIDYMITIS, UNSPECIFIED 05/11/2010 ANETA COX MD 112.3 CANDIDIASIS, OF SKIN AND NAILS 05/11/2010 ANETA COX MD 604.9 0 ORCHITIS AND EPIDIDYMITIS, UNSPECIFIED 05/11/2010 FREDDY ANDERSON, FORD M 112.3 CANDIDIASIS, OF SKIN AND NAILS 05/11/2010 FREDDY ANDERSON, FORD M 604.90 ORCHITIS AND EPIDIDYMITIS, UNSPECIFIED 06/01/2010 RILEY MORRIS CARINE IRVINGH 462 PHARYNGITIS ACUTE 06/01/2010 RILEY MORRIS CARINE IRVINGH 787.01 NAUSEA WITH VOMITING 06/01/2010 RILEY MORRIS CARINE IRVINGH 462 PHARYNGITIS ACUTE 06/01/2010 RILEY MORRIS CARINE IRVINGH 787.01 NAUSEA WITH VOMITING 06/01/2010 462 PHARYN GITIS ACUTE 06/01/2010 787.01 WAYNE SEA WITH VOMITING 06/01/2010 462 PHARYN GITIS ACUTE 06/01/2010 787.01 WAYNE SEA WITH VOMITING 06/01/2010 TOMY HAWK DOA K 462 PHARYNGITIS ACUTE 06/01/2010 TOMY HAWK DOA K 787.01 NAUSEA WITH VOMITING 06/01/2010 RILEY MORRIS CARINE AHMET 462 PHARYNGITIS ACUTE 06/01/2010 RILEY MORRIS CARINE IRVINGH 787.01 NAUSEA WITH VOMITING 06/01/2010 JAMIL REES APRNA L 462 PHARYNGITIS ACUTE 06/01/2010 JAMIL REES APRNA L 787 .01 NAUSEA WITH VOMITING 06/01/2010 HAWK DO, MURALI K 462 PHARYNGITIS ACUTE 06/01/2010 HAWK DO, MURALI K 787.01 NAUSEA WITH VOMITING 06/01/2010 462 PHARYN GITIS ACUTE 06/01/2010 787.01 WAYNE SEA WITH VOMITING 06/01/2010 ANETA COX MD 462 PHARYNGITIS ACUTE 06/01/2010 ANETA COX MD 787.0 1 NAUSEA WITH VOMITING 06/01/2010 MADL RESUME WRITER, FAVIAN L 462 PHARYNGITIS ACUTE 06/01/2010 KIRSTENL RESUME WRITER, FAVIAN L 787 .01 NAUSEA WITH VOMITING 06/01/2010 ANETA COX MD 462 PHARYNGITIS ACUTE 06/01/2010 ANETA COX MD 787.0 1 NAUSEA WITH VOMITING 06/01/2010 FORD RIVERA 4 62 PHARYNGITIS ACUTE 06/01/2010 FORD RIVERA 787.01 NAUSEA WITH VOMITING 06/04/2010 RILEY MORRIS CARINE AHMET 309.0 AD ADJ D/O W DEPRESSED 06/04/2010 RILEY MORRIS CARINE AHMET 314.01 ADHD COMBINED 06/04/2010 RILEY MORRIS CARINE LEO 309.0 AD ADJ D/O W DEPRESSED 06/04/2010 RILEY MORRIS CARINE LEO 314.01 ADHD COMBINED 06/04/2010 309.0 AD A DJ D/O W DEPRESSED 06/04/2010 314.01 ADH D COMBINED 06/04/2010 309.0 AD A DJ D/O W DEPRESSED 06/04/2010 314.01 ADH D COMBINED 06/04/2010 HAWK DO, MURALI K 309.0 AD ADJ D/O W DEPRESSED 06/04/2010 HAWK DO, MURALI K 314.01 ADHD COMBINED 06/04/2010 RILEY MORRIS CARINE LEO 309.0 AD ADJ D/O W DEPRESSED 06/04/2010 RILEY MORRIS CARINE LEO 314.01 ADHD COMBINED 06/04/2010 NEGRITA MORRIS FAVIAN L 309 .0 AD ADJ D/O W DEPRESSED 06/04/2010 NEGRITA RESUME WRITER, FAVIAN L 314 .01 ADHD COMBINED 06/04/2010 HAWK DO, MURALI K 309.0 AD ADJ D/O W DEPRESSED 06/04/2010 TOMY HAWK DOA K 314.01 ADHD COMBINED 06/04/2010 309.0 AD A DJ D/O W DEPRESSED 06/04/2010 314.01 ADH D COMBINED 06/04/2010 ANETA COX MD 309.0 AD ADJ D/O W DEPRESSED 06/04/2010 ANETA COX MD 314.0 1 ADHD COMBINED 06/04/2010 MADL RESUME WRITER, FAVIAN L 309 .0 AD ADJ D/O W DEPRESSED 06/04/2010 KIRSTENL RESUME WRITERCELIO AlarconNYA L 314 .01 ADHD COMBINED 06/04/2010 ANETA COX MD 309.0 AD ADJ D/O W DEPRESSED 06/04/2010 ANETA COX MD 314.0 1 ADHD COMBINED 06/04/2010 FREDDY MECH[employer]ICAL SHOP LABORERFORD M 309.0 AD ADJ D/O W DEPRESSED 06/04/2010 FREDDY MECHANICAL SH[employer] LABORERFORD M 314.01 ADHD COMBINED 07/04/2010 RILEY MORRIS CARINE LEO 314.00 ADHD INATTENTIVE 07/04/2010 RILEY MORRIS CARINE LEO V58.69 MEDICATION HIGH RISK 07/04/2010 RILEY MORRIS CARINE LEO 314.00 ADHD INATTENTIVE 07/04/2010 RILEY MORRIS CARINE LEO V58.69 MEDICATION HIGH RISK 07/04/2010 314.00 ADH D INATTENTIVE 07/04/2010 V58.69 MED ICATION HIGH RISK 07/04/2010 314.00 ADH D INATTENTIVE 07/04/2010 V58.69 MED ICATION HIGH RISK 07/04/2010 TOMY HAWK DOA K 314.00 ADHD INATTENTIVE 07/04/2010 TOMY HAWK DOA K V58.69 MEDICATION HIGH RISK 07/04/2010 RILEY MORRIS CARINE LEO 314.00 ADHD INATTENTIVE 07/04/2010 RILEY MORRIS CARINE LEO V58.69 MEDICATION HIGH RISK 07/04/2010 MADL JAMIL MORRISA L 314 .00 ADHD INATTENTIVE 07/04/2010 NEGRITA RESUME WRITERSYDNEY AlarconFAVIAN L V58 .69 MEDICATION HIGH RISK 07/04/2010 CARINE MAYA MURALI K 314.00 ADHD INATTENTIVE 07/04/2010 HAWK DO MURALI K V58.69 MEDICATION HIGH RISK 07/04/2010 314.00 ADH D INATTENTIVE 07/04/2010 V58.69 MED ICATION HIGH RISK 07/04/2010 ANETA COX MD 314.0 0 ADHD INATTENTIVE 07/04/2010 ANETA COX MD V58.6 9 MEDICATION HIGH RISK 07/04/2010 FAVIAN REES APRN 314 .00 ADHD INATTENTIVE 07/04/2010 FAVIAN REES APRN L V58 .69 MEDICATION HIGH RISK 07/04/2010 ANETA COX MD 314.0 0 ADHD INATTENTIVE 07/04/2010 ANETA COX MD V58.6 9 MEDICATION HIGH RISK 07/04/2010 FORD RIVERA M 314.00 ADHD INATTENTIVE 07/04/2010 FORD RIVERA V58.69 MEDICATION HIGH RISK 08/29/2010 CARINE LIN APRN 054.9 HERPES SIMPLEX ANY SITE 08/29/2010 CARINE LIN APRN 054.9 HERPES SIMPLEX ANY SITE 08/29/2010 054.9 HERP ES SIMPLEX ANY SITE 08/29/2010 054.9 HERP ES SIMPLEX ANY SITE 08/29/2010 MURALI HAWK DO 054.9 HERPES SIMPLEX ANY SITE 08/29/2010 CARINE LIN APRN 054.9 HERPES SIMPLEX ANY SITE 08/29/2010 FAVIAN REES APRN 054 .9 HERPES SIMPLEX ANY SITE 08/29/2010 MURALI HAWK DO 054.9 HERPES SIMPLEX ANY SITE 08/29/2010 054.9 HERP ES SIMPLEX ANY SITE 08/29/2010 ANETA COX MD 054.9 HERPES SIMPLEX ANY SITE 08/29/2010 FAVIAN REES APRN 054 .9 HERPES SIMPLEX ANY SITE 08/29/2010 ANETA COX MD 054.9 HERPES SIMPLEX ANY SITE 08/29/2010 FORD RIVERA 054.9 HERPES SIMPLEX ANY SITE 09/07/2010 CARINE LIN APRN 296.32 MO DEPRESSIVE RECURRENT MODERATE 09/07/2010 CARINE LIN APRN 296.32 MO DEPRESSIVE RECURRENT MODERATE 09/07/2010 296.32 MO DEPRESSIVE RECURRENT MODERATE 09/07/2010 296.32 MO DEPRESSIVE RECURRENT MODERATE 09/07/2010 HAWK DO, MURALI K 296.32 MO DEPRESSIVE RECURRENT MODERATE 09/07/2010 LIN ALEXANDRA CARINE LEO 296.32 MO DEPRESSIVE RECURRENT MODERATE 09/07/2010 KIRSTENBoaz FISHNSYDNEYFAVIAN L 296 .32 MO DEPRESSIVE RECURRENT MODERATE 09/07/2010 MURALI HAWK DO K 296.32 MO DEPRESSIVE RECURRENT MODERATE 09/07/2010 296.32 MO DEPRESSIVE RECURRENT MODERATE 09/07/2010 ANETA COX MD 296.3 2 MO DEPRESSIVE RECURRENT MODERATE 09/07/2010 FAVIAN REES APRN L 296 .32 MO DEPRESSIVE RECURRENT MODERATE 09/07/2010 ANETA COX MD 296.3 2 MO DEPRESSIVE RECURRENT MODERATE 09/07/2010 FORD RIVERA 296.32 MO DEPRESSIVE RECURRENT MODERATE 09/26/2010 RILEY MORRIS CARINE AHMET 311 MO DEPRESS NOS 09/26/2010 RILEY MORRIS CARINE AHMET 311 MO DEPRESS NOS 09/26/2010 311 MO DEP RESS NOS 09/26/2010 311 MO DEP RESS NOS 09/26/2010 MURALI HAWK DO K 311 MO DEPRESS NOS 09/26/2010 LIN ALEXANDRA CARINE LEO 311 MO DEPRESS NOS 09/26/2010 NEGRITA RESUME WRITER, FAVIAN L 311 MO DEPRESS NOS 09/26/2010 MURALI HAWK DO K 311 MO DEPRESS NOS 09/26/2010 311 MO DEP RESS NOS 09/26/2010 ANETA COX MD 311 MO DEPRESS NOS 09/26/2010 NEGRITA MORRIS, FAVIAN L 311 MO DEPRESS NOS 09/26/2010 ANETA COX MD 311 MO DEPRESS NOS 09/26/2010 FORD RIVERA 3 11 MO DEPRESS NOS 01/31/2011 RILEY MORRIS CARINE AHMET V06.5 DT, TETANUS-DIPHTHERIA [Td] ,TDAP 01/31/2011 CARINE LIN APRN V06.5 DT, TETANUS-DIPHTHERIA [Td] ,TDAP 01/31/2011 V06.5 DT, TETANUS- DIPHTHERIA [Td] ,TDAP 01/31/2011 V06.5 DT, TETANUS- DIPHTHERIA [Td] ,TDAP 01/31/2011 MURALI HAWK DO V06.5 DT, TETANUS-DIPHTHERIA [Td] ,TDAP 01/31/2011 LINCARINE MAYER APRN V06.5 DT, TETANUS-DIPHTHERIA [Td] ,TDAP 01/31/2011 NEGRITA FISHN, FAVIAN Sandra V06 .5 DT, TETANUS-DIPHTHERIA [Td] ,TDAP 01/31/2011 HAWK DOMURALI V06.5 DT, TETANUS-DIPHTHERIA [Td] ,TDAP 01/31/2011 V06.5 DT, TETANUS- DIPHTHERIA [Td] ,TDAP 01/31/2011 ANETA COX MD V06.5 DT, TETANUS-DIPHTHERIA [Td] ,TDAP 01/31/2011 NEGRITA RESUME WRITER, FAVIAN Sandra V06 .5 DT, TETANUS-DIPHTHERIA [Td] ,TDAP 01/31/2011 ANETA COX MD V06.5 DT, TETANUS-DIPHTHERIA [Td] ,TDAP 01/31/2011 FORD RIVERA V06.5 DT, TETANUS-DIPHTHERIA [Td] ,TDAP 06/17/2011 CARINE LIN APRN 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 3 BITE OF OTHER ANIMAL EXCEPT ARTHROPOD 06/17/2011 FAVIAN REES APRN L E90 6.3 BITE OF OTHER ANIMAL EXCEPT ARTHROPOD 06/17/2011 ANETA COX MD E906. 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 06/13/2012 RILEY FISHNCARINE 466.0 BRONCHITIS, ACUTE 06/13/2012 RILEY FISHNCARINE 466.0 BRONCHITIS, ACUTE 06/13/2012 466.0 BRON CHITIS, ACUTE 06/13/2012 466.0 BRON CHITIS, ACUTE 06/13/2012 HAWK , MURALI K 466.0 BRONCHITIS, ACUTE 06/13/2012 LIN ALEXANDRA CARINE LEO 466.0 BRONCHITIS, ACUTE 06/13/2012 MADL RESUME WRITER, FAVIAN L 466 .0 BRONCHITIS, ACUTE 06/13/2012 HAWK , MURALI K 466.0 BRONCHITIS, ACUTE 06/13/2012 466.0 BRON CHITIS, ACUTE 06/13/2012 ANETA COX MD 466.0 BRONCHITIS, ACUTE 06/13/2012 NEGRITA MORRIS, FAVIAN L 466 .0 BRONCHITIS, ACUTE 06/13/2012 ANETA COX MD 466.0 BRONCHITIS, ACUTE 06/13/2012 FORD RIVERA 466.0 BRONCHITIS, ACUTE 12/04/2012 462 PHARYN GITIS ACUTE 12/04/2012 462 PHARYN GITIS ACUTE 12/04/2012 HAWK DO, MURALI K 462 PHARYNGITIS ACUTE 12/04/2012 RILEY MORRIS CARINE LEO 462 PHARYNGITIS ACUTE 12/04/2012 NEGRITA MORRIS, FAVIAN L 462 PHARYNGITIS ACUTE 12/04/2012 HAWK , MURALI K 462 PHARYNGITIS ACUTE 12/04/2012 ANETA COX MD 462 PHARYNGITIS ACUTE 12/04/2012 NEGRITA MORRIS, FAVIAN L 462 PHARYNGITIS ACUTE 12/04/2012 ANETA COX MD 462 PHARYNGITIS ACUTE 12/04/2012 FORD RIVERA 4 62 PHARYNGITIS ACUTE 04/15/2013 HAWK , MURALI K 786.2 COUGH 04/15/2013 RILEY MORRIS CARINE IRVINGH 786.2 COUGH 04/15/2013 MADL RESUME WRITER, FAVIAN L 786 .2 COUGH 04/15/2013 HAWK , MURALI K 786.2 COUGH 04/15/2013 ANETA COX MD 786.2 COUGH 04/15/2013 FAVIAN REES APRN 786 .2 COUGH 04/15/2013 ANETA COX MD 786.2 COUGH 04/15/2013 FORD RIVERA 786.2 COUGH 02/03/2014 MURALI HAWK DO 692.9 CONTACT DERMATITIS AND OTHER ECZEMA UNSPECIFIED CAUSE 02/03/2014 ANETA COX MD 692.9 CONTACT DERMATITIS AND OTHER ECZEMA UNSPECIFIED CAUSE 02/03/2014 FAVIAN REES APRN 692 .9 CONTACT DERMATITIS AND OTHER ECZEMA UNSPECIFIED CAUSE 02/03/2014 ANETA COX MD 692.9 CONTACT DERMATITIS AND OTHER ECZEMA UNSPECIFIED CAUSE 02/03/2014 FORD RIVERA 692.9 CONTACT DERMATITIS AND OTHER ECZEMA UNSPECIFIED CAUSE 06/27/2014 ANETA COX MD 465.9 ACUTE UPPER RESPIRATORY INFECTIONS OF UNSPECIFIED SITE 06/27/2014 FAVIAN REES APRN 465 .9 ACUTE UPPER RESPIRATORY INFECTIONS OF UNSPECIFIED SITE 06/27/2014 ANETA COX MD 465.9 ACUTE UPPER RESPIRATORY INFECTIONS OF UNSPECIFIED SITE 06/27/2014 FORD RIVERA 465.9 ACUTE UPPER RESPIRATORY INFECTIONS OF UNSPECIFIED SITE 10/28/2014 ANETA COX MD 924.9 CONTUSION OF UNSPECIFIED SITE 10/28/2014 FORD RIVERA 924.9 CONTUSION OF UNSPECIFIED SITE 04/20/2016 SUZANNE DO, MICHEAL K Ot F17.210 NICOTINE DEPENDENCE, CIGARETTES, UNCOMPL 04/20/2016 SUZANNE DO, MICHEAL K Ot J06.9 ACUTE UPPER RESPIRATORY INFECTION, UNSPE 04/20/2016 SUZANNE DO, MICHEAL K Ot J40 BRONCHITIS, NOT SPECIFIED ACUTE OR CH 04/20/2016 SUZANNE DO, MICHEAL K Ot R05 COUGH 04/23/2016 SUZANNE DO, MICHEAL K Ot F17.210 NICOTINE DEPENDENCE, CIGARETTES, UNCOMPL 04/23/2016 SUZANNE DO, MICHEAL K Ot J06.9 ACUTE UPPER RESPIRATORY INFECTION, UNSPE 04/23/2016 SUZANNE DO, MICHEAL K Ot J40 BRONCHITIS, NOT SPECIFIED ACUTE OR CH 04/23/2016 SUZANNE DO, MICHEAL K Ot R05 COUGH 10/23/2016 KEVIN LIU, MATT Lau Ot F10.10 ALCOHOL ABUSE, UNCOMPLICATED 10/23/2016 MATT BROWN MD Ot R56.9 UNSPECIFIED CONVULSIONS 10/23/2016 MATT BROWN MD Ot R74.8 ABNORMAL LEVELS OF OTHER SERUM ENZYMES 10/23/2016 MATT BROWN MD Ot Y90.7 BLOOD ALCOHOL LEVEL OF 200-239 MG/100 ML Procedures Code Description [place] [address] PSYC H PHARM MGMT 07/15/2012 97732 PSYC H IND W/MED CK 20 11/12/2012 05807 STRE P A (IN-HOUSE) 12/04/2012 Results Test Result Range Complete blood count (CBC) with automate d white blood cell (WBC) differential - 10/21/16 01:41 Blood leukocytes automated count (number/volume) 6.9 10*3/uL 4.3-11.0 Blood erythrocytes automated count (number/volume) 5.11 10*6/uL 4.35-5.85 Venous blood hemoglobin measurement (mass/volume) 16.7 g/dL 13.3-17.7 Blood hematocrit (volume fraction) 48 % 40-54 Automated erythrocyte mean corpuscular volume 94 [ foz_us] 80-99 Automated erythrocyte mean corpuscular h emoglobin (mass per erythrocyte) 33 pg 25-34 Automated erythrocyte mean corpuscular h emoglobin concentration measurement (mass/volume) 35 g/dL 32-36 Automated erythrocyte distribution width ratio 13. 9 % 10.0- 14.5 Automated blood platelet count (count/volume) 207 10*3/uL 130-400 Automated blood platelet mean volume measurement 9.9 [foz_us] 7.4-10.4 Automated blood neutrophils/100 leukocytes 38 % 42-75 Automated blood lymphocytes/100 leukocytes 47 % 12-44 Blood monocytes/100 leukocytes 10 % 0-12 Automated blood eosinophils/100 leukocytes 5 % 0-10 Automated blood basophils/100 leukocytes 1 % 0-10 Blood neutrophils automated count (number/volume) 2.6 10*3 1.8-7.8 Blood lymphocytes automated count (number/volume) 3.2 10*3 1.0-4.0 Blood monocytes automated count (number/volume) 0. 7 10*3 0.0-1.0 Automated eosinophil count 0.3 10*3/uL 0 .0-0.3 Automated blood basophil count (count/volume) 0.0 10*3/uL 0.0-0.1 Comprehensive metabolic panel - 10/21/16 01:41 Serum or plasma sodium measurement (moles/volume) 142 mmol/L 135-145 Serum or plasma potassium measurement (moles/volume) 3.8 mmol/L 3.6-5.0 Serum or plasma chloride measurement (moles/volume) 107 mmol/L 98-107 Carbon dioxide 19 mmol/L 21-32 Serum or plasma anion gap determination (moles/volume) 16 mmol/L 5-14 Serum or plasma urea nitrogen measurement (mass/volume ) 6 mg/dL 7-18 Serum or plasma creatinine measurement (mass/volume) 0.85 mg/dL 0.60-1.30 Serum or plasma urea nitrogen/creatinine mass ratio 7 NRG Serum or plasma creatinine measurement w ith calculation of estimated glomerular filtration rate > NRG Serum or plasma glucose measurement (mass/volume) 131 mg/dL 70-105 Serum or plasma calcium measurement (mass/volume) 9.1 mg/dL 8.5-10.1 Serum or plasma total bilirubin measurement (mass/volu me) 0.7 mg/dL 0.1-1.0 Serum or plasma alkaline phosphatase fede surement (enzymatic activity/volume) 50 U/L 40-136 Serum or plasma aspartate aminotransfera se measurement (enzymatic activity/volume) 268 U/L 5-34 Serum or plasma alanine aminotransferase measurement (enzymatic activity/volume) 326 U/L 0-55 Serum or plasma protein measurement (mass/volume) 7.6 g/dL 6.4-8.2 Serum or plasma albumin measurement (mass/volume) 4.4 g/dL 3.2-4.5 Magnesium - 10/21/16 01:41 Magnesium 2.3 mg/dL 1.8-2.4 THYROID STIMULATING HORMONE - 10/21/16 0 1:41 THYROID STIMULATING HORMONE 2.59 u[iU]/mL 0.35-4.94 Serum or plasma salicylates measurement (mass/volume) - 10/21/16 01:41 Serum or plasma salicylates measurement (mass/volume) < mg/dL 5.0-20.0 Serum or plasma acetaminophen measuremen t (mass/volume) - 10/21/16 01:41 Serum or plasma acetaminophen measurement (mass/volume ) < ug/mL 10-30 Serum or plasma ethanol measurement (mas s/volume) - 10/21/16 01:41 Serum or plasma ethanol measurement (mass/volume) 204 mg/dL <10 Complete urinalysis with reflex to cultu re - 10/21/16 03:02 Urine color determination YELLOW NRG Urine clarity determination CLEAR NR G Urine pH measurement by test strip 5 5-9 Specific gravity of urine by test strip 1.020 1.016-1.022 Urine protein assay by test strip, semi-quantitative NEGATIVE NEGATIVE Urine glucose detection by automated test strip NE GATIVE NEGATIVE Erythrocytes detection in urine sediment by light micr oscopy NEGATIVE NEGATIVE Urine ketones detection by automated test strip 1+ NEGATIVE Urine nitrite detection by test strip NEGATIVE NEGATIVE Urine total bilirubin detection by test strip NEGA TIVE NEGATIVE Urine urobilinogen measurement by automated test strip (mass/volume) NORMAL NORMAL Urine leukocyte esterase detection by dipstick NEG ATIVE NEGATIVE Automated urine sediment erythrocyte cou nt by microscopy (number/high power field) NONE NRG Automated urine sediment leukocyte count by microscopy (number/high power field) NONE NRG Bacteria detection in urine sediment by light microsco py NEGATIVE NRG Squamous epithelial cells detection in u rine sediment by light microscopy RARE NRG Crystals detection in urine sediment by light microsco py NONE NRG Casts detection in urine sediment by light microscopy PRESENT NRG Mucus detection in urine sediment by light microscopy NEGATIVE NRG Complete urinalysis with reflex to culture NO NRG Hyaline casts detection in urine sediment by light georgia roscopy RARE NRG Urine drug screening test - 10/21/16 03: 02 Urine phencyclidine detection by screening method NEGATIVE NEGATIVE Urine benzodiazepines detection by screening method NEGATIVE NEGATIVE Urine cocaine detection NEGATIVE NEGATI VE Urine amphetamines detection by screening method N EGATIVE NEGATIVE Urine methamphetamine detection by screening method NEGATIVE NEGATIVE Urine cannabinoids detection by screening method N EGATIVE NEGATIVE Urine opiates detection by screening method NEGATI VE NEGATIVE Urine barbiturates detection NEGATIVE N EGATIVE Screening urine tricyclic antidepressants detection NEGATIVE NEGATIVE Urine methadone detection by screening method NEGA TIVE NEGATIVE Urine oxycodone detection NEGATIVE NEGA TIVE Urine propoxyphene detection NEGATIVE N EGATIVE PDM - ATS (PROFILE 8 WITH CONFIRMATION) - 03/01/19 10:50 Creatinine 193.4 mg/dL > or = 20.0 pH 6.93 4.5 - 9.0 Oxidant NEGATIVE mcg/mL <200 Amphetamines NEGATIVE ng/mL <500 medMATCH Amphetamines CONSISTENT NRG Benzodiazepines NEGATIVE ng/mL <100 medMATCH Benzodiazepines CONSISTENT NRG Marijuana Metabolite NEGATIVE ng/mL <20 medMATCH Marijuana Metab CONSISTENT NRG Cocaine Metabolite NEGATIVE ng/mL <150 medMATCH Cocaine Metab CONSISTENT NRG Opiates NEGATIVE ng/mL <100 medMATCH Opiates CONSISTENT NRG Oxycodone NEGATIVE ng/mL <100 medMATCH Oxycodone CONSISTENT NRG COMMENT NRG Buprenorphine NEGATIVE ng/mL <5 MDMA NEGATIVE ng/mL <500 medMATCH MDMA CONSISTENT NRG Alcohol Metabolites NEGATIVE CONFIRMED ng/mL <500 6 Acetylmorphine NEGATIVE ng/mL <10 medMATCH 6 Acetylmorphine CONSISTENT NR G medMATCH Buprenorphine CONSISTENT NRG Ethyl Glucuronide (ETG) NEGATIVE ng/mL <500 medMATCH ETG CONSISTENT NRG Ethyl Sulfate (ETS) NEGATIVE ng/mL <10 0 medMATCH ETS CONSISTENT NRG CRP - 07/19/19 15:33 C-REACTIVE PROTEIN 3.4 mg/L <8.0 HEPATITIS PROFILE - 07/26/19 12:29 HEPATITIS A IGM NON-REACTIVE NON-REACTI VE HEPATITIS B SURFACE ANTIGEN NON-REACTIVE NON-REACTIVE HEPATITIS B CORE ANTIBODY (IGM) NON-REACTIVE NON-REACTIVE HEPATITIS C ANTIBODY NON-REACTIVE NON-R EACTIVE SIGNAL TO CUT-OFF 0.03 <1.00 COVID-19 ([facility]) - 11/25/19 14:06 PATIENT SYMPTOMATIC? NOT GIVEN NRG SOURCE: NOT GIVEN NRG OVERALL RESULT: NOT DETECTED NOT DETE CTED SARS-CoV-2 RNA: NEGATIVE NEGATIVE QUARLES-SARS RNA: NEGATIVE NEGATIVE CPK - 12/15/19 17:44 CREATINE KINASE, TOTAL 345 U/L 44-196 CMP - 12/15/19 17:44 GLUCOSE 159 mg/dL 65-99 UREA NITROGEN (BUN) 14 mg/dL 7-25 CREATININE 0.87 mg/dL 0.60-1.35 eGFR NON-AFR. MOLDOVAN 117 mL/min/1.73m2 > OR = 60 eGFR 136 mL/min/1.73m2 > OR = 60 BUN/CREATININE RATIO NOT APPLICABLE (calc) 6-22 SODIUM 137 mmol/L 135-146 POTASSIUM 4.1 mmol/L 3.5-5.3 CHLORIDE 103 mmol/L 98-110 CARBON DIOXIDE 23 mmol/L 20-32 CALCIUM 9.6 mg/dL 8.6-10.3 PROTEIN, TOTAL 7.6 g/dL 6.1-8.1 ALBUMIN 4.6 g/dL 3.6-5.1 GLOBULIN 3.0 g/dL (calc) 1.9-3.7 ALBUMIN/GLOBULIN RATIO 1.5 (calc) 1.0-2. 5 BILIRUBIN, TOTAL 0.6 mg/dL 0.2-1.2 ALKALINE PHOSPHATASE 56 U/L 36-130 AST 166 U/L 10-40 ALT 155 U/L 9-46 CBC - 12/15/19 17:44 WHITE BLOOD CELL COUNT 5.3 Thousand/uL 3 .8-10.8 RED BLOOD CELL COUNT 4.50 Million/uL 4.2 0-5.80 HEMOGLOBIN 14.4 g/dL 13.2-17.1 HEMATOCRIT 42.1 % 38.5-50.0 MCV 93.6 fL 80.0-100.0 MCH 32.0 pg 27.0-33.0 MCHC 34.2 g/dL 32.0-36.0 RDW 13.1 % 11.0-15.0 PLATELET COUNT 206 Thousand/uL 140-400 MPV 10.3 fL 7.5-12.5 ABSOLUTE NEUTROPHILS 2401 cells/uL 1500- 7800 ABSOLUTE LYMPHOCYTES 2051 cells/uL 850-3 900 ABSOLUTE MONOCYTES 567 cells/uL 200-950 ABSOLUTE EOSINOPHILS 239 cells/uL 15-500 ABSOLUTE BASOPHILS 42 cells/uL 0-200 NEUTROPHILS 45.3 % NRG LYMPHOCYTES 38.7 % NRG MONOCYTES 10.7 % NRG EOSINOPHILS 4.5 % NRG BASOPHILS 0.8 % NRG CK TOTAL - 12/16/19 16:40 CREATINE KINASE, TOTAL 254 U/L 44-196 CK-BB NONE DETECTED % of total NONE DETECTED CK-MB 0 % of total <5 CK-MM 100 % of total 95-100 Complete blood count (CBC) with automate d white blood cell (WBC) differential - 02/16/20 12:50 Blood leukocytes automated count (number/volume) 5.6 10*3/uL 4.3-11.0 Blood erythrocytes automated count (number/volume) 4.16 10*6/uL 4.35-5.85 Venous blood hemoglobin measurement (mass/volume) 13.3 g/dL 13.3-17.7 Blood hematocrit (volume fraction) 39 % 40-54 Automated erythrocyte mean corpuscular volume 93 [ foz_us] 80-99 Automated erythrocyte mean corpuscular h emoglobin (mass per erythrocyte) 32 pg 25-34 Automated erythrocyte mean corpuscular h emoglobin concentration measurement (mass/volume) 35 g/dL 32-36 Automated erythrocyte distribution width ratio 14. 2 % 10.0- 14.5 Automated blood platelet count (count/volume) 173 10*3/uL 130-400 Automated blood platelet mean volume measurement 9.4 [foz_us] 7.4-10.4 Automated blood neutrophils/100 leukocytes 35 % 42-75 Automated blood lymphocytes/100 leukocytes 51 % 12-44 Blood monocytes/100 leukocytes 9 % 0-12 Automated blood eosinophils/100 leukocytes 5 % 0-10 Automated blood basophils/100 leukocytes 1 % 0-10 Blood neutrophils automated count (number/volume) 2.0 10*3 1.8-7.8 Blood lymphocytes automated count (number/volume) 2.8 10*3 1.0-4.0 Blood monocytes automated count (number/volume) 0. 5 10*3 0.0-1.0 Automated eosinophil count 0.3 10*3/uL 0 .0-0.3 Automated blood basophil count (count/volume) 0.0 10*3/uL 0.0-0.1 Comprehensive metabolic panel - 02/16/20 12:50 Serum or plasma sodium measurement (moles/volume) 138 mmol/L 135-145 Serum or plasma potassium measurement (moles/volume) 3.7 mmol/L 3.6-5.0 Serum or plasma chloride measurement (moles/volume) 106 mmol/L 98-107 Serum or plasma glucose measurement (mass/volume) 102 mg/dL 70-105 Serum or plasma calcium measurement (mass/volume) 8.1 mg/dL 8.5-10.1 Serum or plasma protein measurement (mass/volume) 7.8 g/dL 6.4-8.2 Serum or plasma albumin measurement (mass/volume) 4.3 g/dL 3.2-4.5 CALCIUM CORRECTED 7.9 mg/dL 8.5-10.1 Encounters ACCT No. Visit Date/Time Discharge Status Pt. Type Provider Facility Loc./Unit Complaint [id number] 12/16/2019 15:20:00 12/16/2019 23:59: 59 CLS Outpatient DAWN PICKETT LAC [facility] [id number] 12/16/2019 15:20:00 Document Registration [id number] 12/15/2019 17:10:00 Document Registration [id number] 11/25/2019 12:45:00 Document Registration [id number] 07/26/2019 12:00:00 Document Registration [id number] 07/19/2019 15:00:00 Document Registration [id number] 03/01/2019 10:40:00 Document Registration [id number] 10/21/2016 01:19:00 017 03:48:00 DIS Outpatient MATT BROWN MD Via [facility] POSS SEIZURE [id number] 04/20/2016 07:09:00 016 08:35:00 DIS Emergency MICHEAL PALACIOS DO a [facility] SOA [id number] 02/16/2020 13:11:00 Document Registration [id number] 11/30/2014 15:23:00 11/30/2014 23:59: 59 CLS Outpatient FREDDY ANDERSON FORD Librado [id number] 10/28/2014 11:47:00 10/28/2014 23:59: 59 CLS Outpatient ANETA COX MD [id number] 09/07/2014 15:14:00 09/07/2014 23:59: 59 CLS Outpatient FAVIAN REES APRN [id number] 06/27/2014 16:07:00 06/27/2014 23:59: 59 CLS Outpatient ANETA COX MD [id number] 02/03/2014 16:03:00 02/03/2014 23:59: 59 CLS Outpatient MURALI HAWK DO [id number] 01/14/2014 10:47:00 01/14/2014 23:59: 59 CLS Outpatient FAVIAN REES APRN [id number] 05/24/2013 14:02:00 05/24/2013 23:59: 59 CLS Outpatient RILEY MORRIS CARINE LEO [id number] 04/15/2013 13:57:00 04/15/2013 23:59: 59 CLS Outpatient MURALI HAWK DO [id number] 11/12/2012 16:56:00 11/12/2012 23:59: 59 CLS Outpatient LIN RESUME WRITER, CARINE AHMET [id number] 07/07/2012 17:08:00 07/07/2012 23:59: 59 [facility] Outpatient CARINE LIN APRN [id number] 06/13/2012 12:24:00 06/13/2012 23:59:5 9 [facility] Outpatient [id number] 01/19/2013 16:37:00 Document Registration [id number] 12/04/2012 15:34:00 Document Registration
--- NOTE | 2020-02-16 14:42 | Diagnostic Imaging Report ---
INDICATION: Persistent rectal bleeding. TECHNIQUE: Multiple contiguous axial images were obtained through the abdomen and pelvis after administration of intravenous contrast. Auto Exposure Controls were utilized during the CT exam to meet ALARA standards for radiation dose reduction. COMPARISON: There is no prior study for comparison. FINDINGS: The visualized portions of the lung bases are clear. There were no pleural fluid collections. There is no free intraperitoneal air. The liver shows diffuse low-density change compatible with fatty infiltration. There is no focal liver lesion. Gallbladder appears normal. Spleen shows couple of calcified granulomas, but otherwise normal in appearance. The adrenals and pancreas appear normal. The kidneys bilaterally appear unremarkable. There is no retroperitoneal mass or adenopathy. There is no ascites or abnormal fluid collection. Visualized bowel loops are nondistended or thickened. There are a few scattered diverticula in the colon. The appendix appears normal. IMPRESSION: Fatty infiltration of the liver. There are a few scattered colonic diverticula but no evidence of obstructing lesion. Dictated by: Dictated on workstation # [id number]
[2020-02-16 15:13] VITALS: BP 146/87
== END 2020-02-16 15:09 | disposition home or self-care (01) ==
LOC: EDUNIT# 12:01 → ER 12:02
DX: K62.5 Hemorrhage of anus and rectum (principal); F90.9 Attention-deficit hyperactivity disorder, unspecified type
CPT/HCPCS: 36415; 74022; 74177; 80053; 81000; 83605; 85025; 85610; 85652; 85730; 86141; 96374

== ENCOUNTER 2022-10-15 23:16 | Emergency (ER) | payer SELFPAY ==
[~2022-10-15 23:16] MED LIST changes: +DOXY-444 PO; -DOXY100C42 PO
--- NOTE | 2022-10-16 00:07 | ED Upper Extremity ---
General Chief Complaint: Upper Extremity Stated Complaint: RT HAND PX Nursing Triage Note: TO ED VIA POV AND AMBULATORY TO FT3 WITH C/O SLAMMING RIGHT FIST INTO A CUTTING BOARD ON FRIDAY. TOOK EXEDRIN AT 2100. Source: patient Exam Limitations: no limitations History of Present Illness Date Seen by Provider: Oct 15, 2022 Time Seen by Provider: 23:30 Initial Comments 32-year-old male who is right-hand dominant presents emergency department today for right hand pain. He has a base of his right little finger. He states on Friday he slammed his hand down on the table at work and injured. He works at [employer]. No other injuries. Has had increased pain and swelling since that time. He has been using ibuprofen and Tylenol without relief. Allergies and Home Medications Allergies Coded Allergies: No Known Drug Allergies (Unverified , 10/21/16) Patient Home Medication List Home Medication List Reviewed: Yes Methylphenidate HCl (Methylphenidate HCl) 20 Mg Tablet, 20 MG PO BID, (Reported) Entered as Reported by: ERIN MOREAU on 04/20/16 0746 Review of Systems Constitutional: no symptoms reported EENTM: no symptoms reported Respiratory: no symptoms reported Cardiovascular: no symptoms reported Gastrointestinal: no symptoms reported Genitourinary: no symptoms reported Musculoskeletal: joint pain, joint swelling Past Bsfaqgq-Ebenzz-Lcfsvd Hx Immunizations Up To Date Influenza Vaccine Up-to-Date: No; Not Current Seasonal Allergies Seasonal Allergies: No Past Medical History Surgeries: No Respiratory: No Cardiac: No Neurological: No Reproductive Disorders: No Gastrointestinal: No Musculoskeletal: No Endocrine: No Cancer: No Psychosocial: Yes ADD/ADHD Family Medical History No Pertinent Family Hx Physical Exam Vital Signs Vital Signs - First Documented 10/15/22 23:25 Temp 36.6 Pulse 106 Resp 16 B/P (MAP) 143/94 (110) Pulse Ox 94 O2 Delivery Room Air Capillary Refill : Less Than 3 Seconds Height, Weight, BMI Height: 5'8" Weight: 211lbs. oz. 95.506942el; BMI Method:Stated General Appearance: WD/WN, no apparent distress Cardiovascular: regular rate, rhythm, no murmur Respiratory: chest non-tender, lungs clear, normal breath sounds, no respiratory distress Wrist: Yes normal inspection, Yes non-tender, Yes no evidence of injury Hand: swelling (Swelling of the base of the fifth metacarpal. Tenderness and bruising in this area as well. No obvious deformity. Neurovascular and sensory intact.) Neurologic/Psychiatric: alert, oriented x 3 Skin: ecchymosis (Right lateral hand) Progress/Results/Core Measures Results/Orders My Orders Orders - ALVARADOMARCUSSydney Sandra DO Hand, Right, 3 Views (10/15/22 23:33) Vital Signs/I&O 10/15/22 23:25 Temp 36.6 Pulse 106 Resp 16 B/P (MAP) 143/94 (110) Pulse Ox 94 O2 Delivery Room Air Blood Pressure Mean: 110 Departure Communication (Admissions) Patient has a fracture of the base of his fifth metacarpal on the right side. He is neurovascular motor and sensory intact. Splint placed. No evidence of ot her injury. This may be a work comp injury as he slammed his hand in the middle he was at work at [employer]. 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 He states understanding. We have made a note in his emergency chart that this may be related to work comp. Impression Primary Impression: Closed fracture of 5th metacarpal Qualified Codes: S62.316A - Displaced fracture of base of fifth metacarpal bone, right hand, initial encounter for closed fracture Disposition: 01 HOME, SELF-CARE Condition: Stable Departure-Patient Inst. Referrals: [facility] (PCP/Family) Primary Care Physician SEUN TURNER MD Patient Instructions: Splint Care ED, Hand Fracture ED Add. Discharge Instructions: Keep the splint on and dry until evaluated by orthopedics. Please call Dr. Turner to schedule a follow-up appointment and for definitive casting. You will need to check with your direct glaze supervisor to see if there is anything else we need to do for work comp. And may require drug screen or other testing which they can then arrange. We have made a note in your emergency room visit that this may be related to work comp. Return to the emergency department for any severe concerns. Follow-up with your primary doctor for any nonemergent needs. I did call to schedule a follow-up appoint with the bone doctor. All discharge instructions reviewed with patient and/or family. Voiced understanding. MARNIE CHILDERS DO Oct 16, 2022 00:07
[2022-10-16 00:30] VITALS: BP 143/94
--- NOTE | 2022-10-16 07:14 | Diagnostic Imaging Report ---
EXAMINATION: Right hand radiograph EXAM DATE: 10/15/2022 11:50 PM COMPARISON: None available. HISTORY: Right hand pain TECHNIQUE: 3 views FINDINGS: There is a mildly displaced fracture of the distal right 5th metacarpal. No dislocation or destructive osseous process. The joint spaces are normal. The soft tissues are normal. IMPRESSION: 1. Mildly displaced acute fracture of the distal right 5th metacarpal. Dictated by: Dictated on workstation # [id number]
== END 2022-10-16 00:30 | disposition home or self-care (01) ==
LOC: EDUNIT# 23:16 → ER 23:19
DX: S62.316A Displaced fracture of base of fifth metacarpal bone, right hand, initial encounter for closed fracture (principal); Z28.310 Unvaccinated for COVID-19; W22.03XA Walked into furniture, initial encounter; Y92.511 Restaurant or cafe as the place of occurrence of the external cause; Y99.0 Civilian activity done for income or pay
CPT/HCPCS: 29125; 73130

== ENCOUNTER 2023-04-08 15:36 | Emergency (ER) | payer SELFPAY ==
[~2023-04-08] VITALS: Ht 170 cm; Wt 102.0 kg
[2023-04-08] MEDS ORDERED: NS IV 1000 ML 1,000 ML IV STA (15:45)
--- NOTE | 2023-04-08 15:49 | ED General ---
General Chief Complaint: Abdominal/GI Problems Stated Complaint: DIZZY - N/V Nursing Triage Note: pt states abd cramping that starts on his right side goes down into his scrotum and up the left side of his abd, started yesterday. also c/o n/v/d Source of Information: Patient Exam Limitations: No Limitations History of Present Illness Date Seen by Provider: Apr 08, 2023 Time Seen by Provider: 15:46 Initial Comments Patient is a 32-year-old male who presents ED with diffuse abdominal cramping more notable on the right side. This started yesterday while outside. 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 Works for a [employer]. Started feeling lightheaded and weak and dizzy. Vomited once. Did not go to work today as he states he did not feel well. Patient reports diffuse abdominal cramping since yesterday. He also reports cramping in his upper and lower extremities. Attempted to stay hydrated with drinking water but this has been unsuccessful. Attempted to drink some alcohol today. Patient reports few episodes of diarrhea. Reports sore throat and nasal congestion. Denies chest pain, cough, shortness of breath, headache, dizziness, fever, change in mental status. Denies history of coronary artery disease, diabetes. Patient states he has been urinating. Allergies and Home Medications Allergies Coded Allergies: No Known Drug Allergies (Unverified , 10/21/16) Patient Home Medication List Home Medication List Reviewed: Yes Methylphenidate HCl (Methylphenidate HCl) 20 Mg Tablet, 20 MG PO BID, (Reported) Entered as Reported by: ERIN MOREAU on 04/20/16 0746 Review of Systems Review of Systems Constitutional: No chills, No diaphoresis; dizziness; No fever; malaise, weakness EENTM: throat pain; No hearing loss, No ear pain, No blurred vision Respiratory: No cough Cardiovascular: No chest pain Gastrointestinal: abdominal pain, diarrhea, nausea, vomiting Genitourinary: No decreased output, No discharge, No dysuria; frequency Musculoskeletal: No back pain, No joint pain, No joint swelling; muscle pain; No muscle stiffness; other (muscl spasming) Skin: No change in color, No change in hair/nails All Other Systems Reviewed Negative Unless Noted: Yes Past Huqxvoq-Wwjqeq-Sgxjbw Hx Patient Social History Tobacco Use?: Yes Tobacco type used: Cigarettes Use of E-Cig and/or Vaping dev: Yes E-Cig or Vaping type used: Nicotine Substance use?: No Alcohol Use?: Yes Alcohol Frequency: Couple times a week Pt feels they are or have been: No Seasonal Allergies Seasonal Allergies: No Past Medical History Surgeries: No Respiratory: No Cardiac: No Neurological: No Reproductive Disorders: No Gastrointestinal: No Musculoskeletal: No Endocrine: No Cancer: No Psychosocial: Yes ADD/ADHD Family Medical History No Pertinent Family Hx Physical Exam Vital Signs Vital Signs - First Documented 04/08/23 15:40 Temp 37.4 Pulse 103 Resp 18 B/P (MAP) 149/89 (109) Pulse Ox 98 Capillary Refill : Height, Weight, BMI Height: 5'8" Weight: 211lbs. oz. 95.680002xx; 35.00 BMI Method:Stated General Appearance: No Apparent Distress, WD/WN, Mild Distress Eyes: Bilateral Eye Normal Inspection, Bilateral Eye PERRL, Bilateral Eye EOMI HEENT: PERRL/EOMI, TMs Normal, Normal ENT Inspection, Pharynx Normal Neck: Full Range of Motion, Normal Inspection, Non Tender, Supple Respiratory: Chest Non Tender, Lungs Clear, Normal Breath Sounds, No Accessory Muscle Use, No Respiratory Distress Cardiovascular: Regular Rate, Rhythm, No Edema, No Gallop, No JVD, No Murmur Gastrointestinal: Normal Bowel Sounds, No Organomegaly, No Pulsatile Mass, Soft, Tenderness (diffuse abdominal tenderness.) Back: Normal Inspection, No CVA Tenderness Extremity: Normal Capillary Refill, Normal Inspection, Normal Range of Motion Neurologic/Psychiatric: Alert, Oriented x3, No Motor/Sensory Deficits, Normal Mood/Affect, welt wheeler II-XII Norm as Tested Skin: Normal Color, Warm/Dry Progress/Results/Core Measures Suspected Sepsis SIRS Temperature: Pulse: 103 Respiratory Rate: 18 Laboratory Tests 04/08/23 15:47: White Blood Count 7.6 Blood Pressure 149 /89 Mean: 109 Laboratory Tests 04/08/23 15:47: Creatinine 0.91, Platelet Count 172, Total Bilirubin 1.2H Results/Orders Lab Results Laboratory Tests Test 04/08/23 15:47 04/08/23 15:54 Range/Units White Blood Count 7.6 4.3-11.0 10^3/uL Red Blood Count 4.56 4.30-5.52 10^6/uL Hemoglobin 14.8 13.3-17.7 g/dL Hematocrit 42 40-54 % Mean Corpuscular Volume 91 80-99 fL Mean Corpuscular Hemoglobin 33 25-34 pg Mean Corpuscular Hemoglobin Concent 36 32-36 g/dL Red Cell Distribution Width 13.7 10.0-14.5 % Platelet Count 172 130-400 10^3/uL Mean Platelet Volume 9.6 9.0-12.2 fL Immature Granulocyte % (Auto) 0 % Neutrophils (%) (Auto) 45 42-75 % Lymphocytes (%) (Auto) 42 12-44 % Monocytes (%) (Auto) 10 0-12 % Eosinophils (%) (Auto) 1 0-10 % Basophils (%) (Auto) 1 0-10 % Neutrophils # (Auto) 3.4 1.8-7.8 10^3/uL Lymphocytes # (Auto) 3.2 1.0-4.0 10^3/uL Monocytes # (Auto) 0.8 0.0-1.0 10^3/uL Eosinophils # (Auto) 0.1 0.0-0.3 10^3/uL Basophils # (Auto) 0.1 0.0-0.1 10^3/uL Immature Granulocyte # (Auto) 0.0 0.0-0.1 10^3/uL Sodium Level 135 135-145 MMOL/L Potassium Level 3.5 L 3.6-5.0 MMOL/L Chloride Level 100 98-107 MMOL/L Carbon Dioxide Level 21 21-32 MMOL/L Anion Gap 14 5-14 MMOL/L Blood Urea Nitrogen 14 7-18 MG/DL Creatinine 0.91 0.60-1.30 MG/DL Estimat Glomerular Filtration Rate 116 BUN/Creatinine Ratio 15 Glucose Level 100 70-105 MG/DL Calcium Level 9.2 8.5-10.1 MG/DL Corrected Calcium 8.5-10.1 MG/DL Magnesium Level 2.0 1.6-2.4 MG/DL Total Bilirubin 1.2 H 0.1-1.0 MG/DL Aspartate Amino Transf (AST/SGOT) 62 H 5-34 U/L Alanine Aminotransferase (ALT/SGPT) 40 0-55 U/L Alkaline Phosphatase 45 40-136 U/L Total Creatine Kinase 656 H 30-200 U/L Total Protein 8.3 H 6.4-8.2 GM/DL Albumin 4.7 H 3.2-4.5 GM/DL Lipase 25 8-78 U/L Urine Color YELLOW Urine Clarity CLEAR Urine pH 5.5 5-9 Urine Specific Becket 1.010 L 1.016-1.022 Urine Protein NEGATIVE NEGATIVE Urine Glucose (UA) NEGATIVE NEGATIVE Urine Ketones NEGATIVE NEGATIVE Urine Nitrite NEGATIVE NEGATIVE Urine Bilirubin NEGATIVE NEGATIVE Urine Urobilinogen 0.2 < = 1.0 MG/DL Urine Leukocyte Esterase NEGATIVE NEGATIVE Urine RBC (Auto) NEGATIVE NEGATIVE Urine RBC NONE /HPF Urine WBC NONE /HPF Urine Squamous Epithelial Cells RARE /HPF Urine Crystals NONE /LPF Urine Bacteria NEGATIVE /HPF Urine Casts NONE /LPF Urine Mucus NEGATIVE /LPF Urine Culture Indicated NO Urine Opiates Screen NEGATIVE NEGATIVE Urine Oxycodone Screen NEGATIVE NEGATIVE Urine Methadone Screen NEGATIVE NEGATIVE Urine Propoxyphene Screen NEGATIVE NEGATIVE Urine Barbiturates Screen NEGATIVE NEGATIVE Ur Tricyclic Antidepressants Screen NEGATIVE NEGATIVE Urine Phencyclidine Screen NEGATIVE NEGATIVE Urine Amphetamines Screen NEGATIVE NEGATIVE Urine Methamphetamines Screen NEGATIVE NEGATIVE Urine Benzodiazepines Screen NEGATIVE NEGATIVE Urine Cocaine Screen NEGATIVE NEGATIVE Urine Cannabinoids Screen NEGATIVE NEGATIVE My Orders Orders - QUEENIE JEFFREY Cbc With Automated Diff (04/08/23 15:45) Comprehensive Metabolic Panel (04/08/23 15:45) Lipase (04/08/23 15:45) Magnesium (04/08/23 15:45) Ua Culture If Indicated (04/08/23 15:45) Drug Screen Stat (Urine) (04/08/23 15:45) Ns Iv 1000 Ml (Sodium Chloride 0.9%) (04/08/23 15:45) Creatine Kinase (04/08/23 15:45) Ondansetron Injection (Zofran Injectio (04/08/23 16:15) Lactated Ringers (Lr 1000 Ml Iv Solution (04/08/23 16:24) Medications Given in ED Current Medications Medications Dose Ordered Sig/Alejandra Route Start Time Stop Time Status Last Admin Dose Admin Ondansetron HCl 8 mg ONCE ONCE IVP 04/08/23 16:15 04/08/23 16:16 DC 04/08/23 16:10 8 MG Vital Signs/I&O 04/08/23 04/08/23 15:40 17:18 Temp 37.4 37.4 Pulse 103 103 Resp 18 18 B/P (MAP) 149/89 (109) 149/89 Pulse Ox 98 98 Capillary Refill : Blood Pressure Mean: 109 Departure Communication (PCP) Patient is a 32-year-old male who presents ED for abdominal cramping and heat exhaustion. Patient states symptoms started yesterday. 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 Patient started developing weakness yesterday with episode of vomiting. Started to develop abdominal cramping. No chest pain, shortness of breath or change in mental status. Patient in mild to moderate distress on arrival. Patient complaining abdominal cramping. alert and orient x4. GCS 15. Slightly tachycardic but afebrile. Generalized lab work with CK, urinalysis with drug screen and started on liter of fluid. Hematology was grossly unremarkable. Chemistry showed normal kidney function and magnesium but did showed slight elevated CK of 656. Normal lipase. Potassium 3.5. Urinalysis grossly unremarkable. Patient started vomiting here. Received 8 mg of Zofran. Received a second liter of LR. Patient symptoms continue to improve. Vital signs remained stable. Reassessed his abdomen without any specific tenderness. Likely secondary to muscle cramping. Patient able to ambulate. Feeling much better. Mild rhabdo my lysis. Suspect the mild rhabdo will improve after 2 L of fluid. Recommend rest for the next 2 or 3 days continue staying hydrated with Gatorade and water. Recommend staying inside. Follow-up with PCP in 2 to 3 days for reevaluation. Neuro exam unremarkable. Patient is medically stable for discharge. Vital Signs remained stable. Heart rate improved to 71 bpm. Impression Primary Impression: Dehydration Additional Impressions: Rhabdomyolysis Abdominal cramping Disposition: 01 HOME, SELF-CARE Condition: Stable Departure-Patient Inst. Decision time for Depature: 17:12 Referrals: [facility] (PCP/Family) Primary Care Physician Patient Instructions: Dehydration, Adult (DC) Add. Discharge Instructions: Recommend drinking Gatorade, water. Rest at home. If any worsening symptoms return back to ED. Follow-up your PCP in 2 to 3 days for reevaluation All discharge instructions reviewed with patient and/or family. Voiced understanding. Work/School Note: Work Release Form Date Seen in the Emergency Department: Apr 08, 2023 Return to Work: Apr 11, 2023 QUEENIE JEFFREY Apr 08, 2023 15:49
[2023-04-08 15:55] LABS: BASOPHILS # (AUTO) 0.1 10^3/uL (0.0-0.1); BASOPHILS % (AUTO) 1 % (0-10); EOSINOPHILS # (AUTO) 0.1 10^3/uL (0.0-0.3); EOSINOPHILS % (AUTO) 1 % (0-10); HEMATOCRIT 42 % (40-54); HEMOGLOBIN 14.8 g/dL (13.3-17.7); LYMPHOCYTES # (AUTO) 3.2 10^3/uL (1.0-4.0); LYMPHOCYTES % (AUTO) 42 % (12-44); MEAN CORPUSCULAR HEMOGLOBIN 33 pg (25-34); MEAN CORPUSCULAR HGB CONC 36 g/dL (32-36); MEAN CORPUSCULAR VOLUME 91 fL (80-99); MEAN PLATELET VOLUME 9.6 fL (9.0-12.2); MONOCYTES # (AUTO) 0.8 10^3/uL (0.0-1.0); MONOCYTES % (AUTO) 10 % (0-12); NEUTROPHILS # (AUTO) 3.4 10^3/uL (1.8-7.8); NEUTROPHILS % (AUTO) 45 % (42-75); PLATELET COUNT 172 10^3/uL (130-400); WHITE BLOOD COUNT 7.6 10^3/uL (4.3-11.0)
[2023-04-08 16:07] LABS: ALBUMIN 4.7 GM/DL (3.2-4.5); CHLORIDE 100 MMOL/L (98-107); POTASSIUM 3.5 MMOL/L (3.6-5.0); SODIUM 135 MMOL/L (135-145)
[2023-04-08 16:09] LABS: CALCIUM 9.2 MG/DL (8.5-10.1)
[2023-04-08 16:10] LABS: GLUCOSE 100 MG/DL (70-105); TOTAL PROTEIN 8.3 GM/DL (6.4-8.2)
[2023-04-08 16:11] LABS: BILIRUBIN,TOTAL 1.2 MG/DL (0.1-1.0); CARBON DIOXIDE 21 MMOL/L (21-32)
[2023-04-08 16:13] LABS: ALKALINE PHOSPHATASE 45 U/L (40-136); CREATININE SERUM 0.91 MG/DL (0.60-1.30); GFR ESTIMATED 116
[2023-04-08 16:14] LABS: BUN/CREATININE RATIO 15
[2023-04-08] MEDS ORDERED: ONDANSETRON INJECTION 4 MG/2 ML (SDV) IVP ONE (16:15)
[2023-04-08 16:16] LABS: ALANINE AMINOTRANSFERASE 40 U/L (0-55)
[2023-04-08 16:17] LABS: CREATINE KINASE 656 U/L (30-200); LIPASE 25 U/L (8-78)
[2023-04-08 16:19] LABS: BACTERIA,URINE NEGATIVE /HPF; BILIRUBIN,URINE NEGATIVE (NEGATIVE); CLARITY,URINE CLEAR; COLOR,URINE YELLOW; GLUCOSE, URINE (UA) NEGATIVE (NEGATIVE); KETONES,URINE NEGATIVE (NEGATIVE); LEUKOCYTE ESTERASE ,URINE NEGATIVE (NEGATIVE); NITRITE,URINE NEGATIVE (NEGATIVE); PH,URINE 5.5 (5-9); PROTEIN,URINE NEGATIVE (NEGATIVE); SQUAMOUS EPITHELIAL CELL,UR RARE /HPF
[2023-04-08 16:21] LABS: AMPHETAMINE SCREEN, URINE NEGATIVE (NEGATIVE); BARBITURATE SCREEN URINE NEGATIVE (NEGATIVE); BENZODIAZEPINES SCREEN URINE NEGATIVE (NEGATIVE); CANNABINOID SCREEN, URINE NEGATIVE (NEGATIVE); COCAINE SCREEN URINE NEGATIVE (NEGATIVE); METHADONE STAT NEGATIVE (NEGATIVE); OPIATE SCREEN URINE NEGATIVE (NEGATIVE); OXYCODONE STAT NEGATIVE (NEGATIVE); PROPOXYPHENE STAT NEGATIVE (NEGATIVE); TRICYCLIC ANTIDEPRESSANTS SCRE NEGATIVE (NEGATIVE)
[2023-04-08] MEDS ORDERED: LACTATED RINGERS 1,000 ML 1,000 ML IV STA (16:24)
[2023-04-08 17:18] VITALS: BP 149/89
== END 2023-04-08 17:19 | disposition home or self-care (01) ==
LOC: EDUNIT# 15:36 → ER 15:37
DX: M62.82 Rhabdomyolysis (principal); E86.0 Dehydration; R10.84 Generalized abdominal pain; F17.210 Nicotine dependence, cigarettes, uncomplicated; F17.290 Nicotine dependence, other tobacco product, uncomplicated
CPT/HCPCS: 36415; 80053; 80306; 81000; 82550; 83690; 83735; 85025